=== PATIENT | male | born 1945 | race Caucasian/White ===

== ENCOUNTER 2018-05-13 14:28 | Outpatient (CLI) | payer MEDICARE, SELFPAY ==
[2018-05-13 14:53] LABS: Hemoglobin A1C 8.4 % (4.5-6.2)
[2018-05-13 15:39] LABS: Potassium 3.5 mmol/L (3.5-5.1)
== END 2018-05-13 14:29 ==
PROVIDERS: PCP Family Medicine; Visit Provider Family Medicine
DX: E87.6 Hypokalemia (principal); E11.9 Type 2 diabetes mellitus without complications
CPT/HCPCS: 36415; 83036; 84132

== ENCOUNTER 2018-07-11 01:28 | Outpatient (RCR) | payer MEDICARE, SELFPAY ==
[2018-07-11] MEDS: diphenhydrAMINE 50 MG/ML VIAL IVP (08:18)
[2018-07-11] MEDS: methylPREDNISolone SUCC 125 MG VIAL 100 MG IVP (08:18)
[2018-07-11] MEDS: Normal Saline Flush 10 ML SYR IVP (08:18)
[2018-07-11 08:23] VITALS: BP 152/94; PULSE 49; RESP 18; TEMP 36.7; O2SAT 93
[2018-07-11 09:00] VITALS: BP 182/86; PULSE 50; RESP 18; TEMP 36.5; O2SAT 95
[2018-07-11 09:30] VITALS: BP 178/96; PULSE 58; RESP 18; TEMP 36.7; O2SAT 92
[2018-07-11 10:04] VITALS: BP 169/89; PULSE 65; RESP 18; TEMP 36.7; O2SAT 91
[2018-07-11 11:33] VITALS: BP 138/76; PULSE 61; RESP 18; TEMP 36.5; O2SAT 91
[2018-07-11 13:04] VITALS: BP 147/84; PULSE 63; RESP 18; TEMP 36.5; O2SAT 91
== END 2018-07-13 23:59 | disposition home or self-care (01) ==
LOC: INF 01:28
PROVIDERS: PCP Family Medicine; Visit Provider Family Medicine
DX: M06.9 Rheumatoid arthritis, unspecified (principal)
CPT/HCPCS: 96365; 96366; J1200; J2930; J9310

== ENCOUNTER 2018-08-12 11:39 | Outpatient (CLI) | payer MEDICARE, SELFPAY ==
[2018-08-12 14:10] LABS: Hemoglobin A1C 8.2 % (4.5-6.2)
== END 2018-08-12 11:59 ==
PROVIDERS: PCP Family Medicine; Visit Provider Family Medicine
DX: E11.9 Type 2 diabetes mellitus without complications (principal)
CPT/HCPCS: 36415; 83036

== ENCOUNTER 2018-11-08 00:58 | Outpatient (RCR) | payer MEDICARE, SELFPAY | END 2018-11-10 23:59 | disposition home or self-care (01) | LOC: INF 00:58 | PROVIDERS: PCP Family Medicine; Visit Provider Family Medicine | DX: R69 Illness, unspecified (principal) ==

== ENCOUNTER 2018-11-14 06:50 | Outpatient (RCR) | payer MEDICARE, SELFPAY ==
[2018-11-14] VITALS (7 sets, daily range): BP systolic 139–172; BP diastolic 71–84; PULSE 50–55; RESP 18; TEMP 36–36.2; O2SAT 91–93
[2018-11-14] MEDS: diphenhydrAMINE 50 MG/ML VIAL IVP (07:48)
[2018-11-14] MEDS: Normal Saline Flush 10 ML SYR IVP (07:49)
[2018-11-14] MEDS: methylPREDNISolone SUCC 125 MG VIAL 100 MG IVP (07:49)
== END 2018-12-11 23:59 | disposition home or self-care (01) ==
LOC: INF 06:50
PROVIDERS: PCP Family Medicine; Visit Provider Family Medicine
DX: M06.9 Rheumatoid arthritis, unspecified (principal)
CPT/HCPCS: 96365; 96366; J1200; J2930; J9312

== ENCOUNTER 2018-11-16 02:44 | Outpatient (CLI) | payer MEDICARE, SELFPAY | END 2018-11-16 03:04 | PROVIDERS: PCP Family Medicine; Visit Provider Family Medicine | DX: E11.9 Type 2 diabetes mellitus without complications (principal) | CPT/HCPCS: 36415; 83036 ==

== ENCOUNTER 2019-02-22 12:28 | Outpatient (CLI) | payer MEDICARE, SELFPAY ==
[2019-02-22 13:40] LABS: Abs Immature Grans 0.02 k/cumm (0.0-0.09); Absolute Basophil Count 0.05 k/cumm (0.0-0.2); Absolute Eosinophil Count 0.28 k/cumm (0.0-0.7); Absolute Lymphocyte Count 1.81 k/cumm (1.2-3.4); Absolute Monocyte Count 0.76 k/cumm (0.11-0.7); Absolute Neutrophil Count 3.94 k/cumm (1.2-6.7); Basophils % 0.7; Eosinophils % 4.1; HCT 43.5 % (40.0-50.0); HGB 14.9 g/dL (13.5-17.5); Immature Grans % 0.3; Lymphocytes % 26.4; Mean Corp. HGB Concentration 34.3 g/dL (32.0-36.0); Mean Corpuscular Volume 90.4 fL (80-95); Mean Platelet Volume 12.1 fL (8.0-11.0); Monocytes % 11.1; Neutrophils % 57.4; Platelet Count 206 x1000/uL (130-400); RBC 4.81 m/cumm (4.50-6.00); RBC Distribution Width 14.2 % (11.8-14.1); White Blood Cell Count 6.86 k/cumm (4.4-10.8)
[2019-02-22 14:42] LABS: Hemoglobin A1C 8.4 % (4.5-6.2)
[2019-02-22 14:53] LABS: ALT 29 U/L (12-78); AST 15 U/L (15-37); Albumin 3.4 g/dL (3.4-5.0); Alkaline Phosphatase 69 U/L (46-116); Anion Gap 11.6 mmol/L (3-11); BUN 18 mg/dL (7-18); Bilirubin, Total 0.3 mg/dL (0.2-1.0); C-Reactive Protein 0.82 mg/dL (0.0-0.3); CO2 27.4 mmol/L (21.0-32.0); CREATININE 0.98 mg/dL (0.70-1.30); Calcium 9.4 mg/dL (8.5-10.1); Chloride 104 mmol/L (98-107); Glucose 148 mg/dL (70-100); Potassium 3.7 mmol/L (3.5-5.1); Sodium 143 mmol/L (136-145); Total Protein 6.5 g/dL (6.4-8.2)
[2019-02-23 11:25] LABS: IgG 929 mg/dL (610-1616)
== END 2019-02-22 12:48 ==
PROVIDERS: PCP Family Medicine; Referring Provider Internal Medicine Rheumatology; Visit Provider Family Medicine
DX: E11.9 Type 2 diabetes mellitus without complications (principal); M05.79 Rheumatoid arthritis with rheumatoid factor of multiple sites without organ or systems involvement; D89.9 Disorder involving the immune mechanism, unspecified; Z79.899 Other long term (current) drug therapy
CPT/HCPCS: 36415; 80053; 82784; 82565; 83036; 85025; 86140

== ENCOUNTER 2019-03-13 01:19 | Outpatient (RCR) | payer MEDICARE, SELFPAY ==
[2019-03-13] VITALS (7 sets, daily range): BP systolic 146–181; BP diastolic 71–95; PULSE 52–64; RESP 18; TEMP 36.3–36.7; O2SAT 98–99
[2019-03-13] MEDS: methylPREDNISolone SUCC 125 MG VIAL 100 MG IV (07:40)
[2019-03-13] MEDS: Normal Saline Flush 10 ML SYR IVP (07:41)
[2019-03-13] MEDS: diphenhydrAMINE 50 MG/ML VIAL IVP (07:41)
== END 2019-04-12 23:59 | disposition home or self-care (01) ==
LOC: INF 01:19
PROVIDERS: PCP Family Medicine; Visit Provider Family Medicine
DX: M06.9 Rheumatoid arthritis, unspecified (principal)
CPT/HCPCS: 96365; 96366; J1200; J2930; J9310

== ENCOUNTER 2019-05-22 00:31 | Outpatient (CLI) | payer MEDICARE, SELFPAY ==
--- NOTE | 2019-05-22 13:21 | DI.CTLCSR_ITS ---
SYMPTOMS/DIAGNOSIS: SCREENING FOR LUNG CA, Z12.2, F17.210 LOW DOSE LUNG CANCER SCREENING: CT examination of the chest was performed utilizing low dose lung cancer screening protocol. There are severe pulmonary emphysematous changes, central lobular and subpleural. There are peripheral and basilar predominant reticular radiodensities with some honeycombing in the lung bases consistent with pulmonary fibrosis. No focal consolidation seen. A 7 x 4 mm in diameter well- circumscribed noncalcified pulmonary nodule is noted in the right upper lobe anteriorly, which was not present on previous examination of April 2009. No additional new pulmonary nodules seen. Note is made of coronary artery calcification. Images obtained through the upper abdomen show grossly unremarkable appearance of visualized portions of the liver and spleen. CONCLUSION: Probably benign findings, six-month follow-up LDCT recommended. Lung-RAD Category: 3- Probably Benign Lung- RAD Management of Findings: 6 month LDCT follow-up
== END 2019-05-22 00:51 ==
PROVIDERS: PCP Family Medicine; Visit Provider Family Medicine
DX: Z12.2 Encounter for screening for malignant neoplasm of respiratory organs (principal); F17.210 Nicotine dependence, cigarettes, uncomplicated; J43.9 Emphysema, unspecified; J84.10 Pulmonary fibrosis, unspecified; R91.1 Solitary pulmonary nodule
CPT/HCPCS: G0297

== ENCOUNTER 2019-05-24 23:33 | Inpatient (IN) | payer MEDICARE, SELFPAY ==
[2019-05-24] VITALS (10 sets, daily range): BP systolic 147–201; BP diastolic 83–97; PULSE 69–91; RESP 4–32; TEMP 36.8; O2SAT 90–99
--- NOTE | 2019-05-24 00:55 | DI.CT_ITS ---
SYMPTOM/DIAGNOSIS: CHEST PAIN CT ANGIOGRAPHY CHEST: 05/24 CT angiography was performed with multi slice acquisition and multi planar and 3D reconstruction. CT angiography of the chest was performed with a bolus infusion of 100 cc Omnipaque 350. There are severe changes of COPD with honeycombing in the lung bases bilaterally. No focal consolidation. 7 x 4 mm right upper lobe intrapulmonary nodule again noted as seen on CT of 05/22/19. There is no evidence of pulmonary embolic disease. Thoracic aorta appears intact as visualized although not optimally opacified. No pleural effusion. No mediastinal or hilar adenopathy. Images obtained through the upper abdomen show unremarkable appearance of visualized portions of liver, spleen, pancreas, adrenals and kidneys. CONCLUSION: No evidence of pulmonary embolic disease.
--- NOTE | 2019-05-24 23:51 | W.ED.GENAD ---
Discharge Plan Disposition Patient Disposition: [facility] INPATIENT Condition: Fair Discharge Details Chief Complaint: Chest Pain Clinical Impression: COPD exacerbation, Chest pain Primary Care Provider: Mike Burns ED Provider: Anton Rogers Home Meds and New Rx's Prescriptions: No Action nicotine (polacrilex) [Nicorette] 4 mg lozenge 4 mg MM Q4H PRN (Reason: nicotine cravings) Qty: 72 RF: 2 amlodipine 5 mg tablet 5 mg PO BID Qty: 180 RF: 4 atorvastatin 40 mg tablet 40 mg PO DAILY Qty: 90 RF: 4 (DME) FreeStyle Test strip 1 strip Miscellaneous DAILY Qty: 100 RF: 4 clopidogrel [Plavix] 75 mg tablet 75 mg PO DAILY Qty: 90 RF: 4 losartan 100 mg tablet 100 mg PO DAILY Qty: 90 RF: 3 metformin 500 mg tablet,ER luis m.retention 24 hr 500 mg PO .qod RF: 0 albuterol sulfate [Proventil HFA] 90 mcg/actuation HFA aerosol inhaler 2 puff IH Q6H PRN (Reason: shortness of breath or wheezing) Qty: 6.7 RF: 5 budesonide 0.5 mg/2 mL suspension for nebulization 0.5 mg Inhalation BID Qty: 60 RF: 11 fluticasone propionate 50 mcg/actuation spray,suspension 2 spray NS DAILY Qty: 1 RF: 5 (DME) Space Chamber Plus 1 EACH spacer 1 ea Miscellaneous PRN Qty: 1 RF: 0 Remicade 100 MG recon soln 1,000 mg IV .[id number] RF: 0 albuterol sulfate [ProAir HFA] 8.5 GM HFA aerosol inhaler 2 puff Inhalation QID PRN Qty: 1 RF: 11 nitroglycerin [Nitrostat] 0.4 MG tablet, sublingual 0.4 mg Sublingual PRN Qty: 25 RF: 11 aspirin 81 MG tablet,chewable 81 mg PO DAILY RF: 0 (DME) lancets [FreeStyle Lancets] 1 EACH misc 1 ea Intradermal DAILY Qty: 100 RF: 4 omeprazole 40 mg capsule,delayed release(DR/EC) 40 mg PO DAILY PRN (Reason: gerd) Qty: 90 RF: 3 Chantix Continuing Month Box 1 mg tablet 1 mg PO BID Qty: 60 RF: 2 acetaminophen 650 MG tablet extended release 650 mg PO Q8H PRN (Reason: Pain) Qty: 20 RF: 0 tamsulosin 0.4 mg Capsule 0.4 mg PO DAILY RF: 0 acebutolol 200 mg Capsule 200 mg PO DIRECTED RF: 0 Medical Decision Making Patient presenting with cough, wheezing, chest pain. He does have known coronary disease but also has COPD. His chest pain is reproducible. His EKG shows no ischemia. IV established laboratory studies obtained including troponin. DuoNeb treatment given. Aspirin and nitroglycerin given. CT of the chest ordered due to pleuritic nature of the chest pain. Nitroglycerin did not help the pain at all. Little bit of morphine was given. Laboratory studies show a normal troponin. White count and hemoglobin normal. Electrolytes normal. Sugar a little high. CTA of the chest negative for PE, infiltrates. He does have a nodule right upper lobe which was identified on a lung screening exam 3 days ago. On return to ED patient is given an albuterol treatment. He is given Solu-Medrol. Suspect COPD exacerbation with chest wall pain related to coughing. Case discussed with hospitalist. Because of his cardiac history he will go to telemetry and have serial troponins. We will treat his COPD exacerbation. Is stable for admission. Medical Records Medical records reviewed: Yes I reviewed the patient's medical records. Lab Data Lab results reviewed: Yes I reviewed the patient's lab results. ECG Data Attestation: I personally reviewed and interpreted this ECG (s) as follows: Prior ECG tracings: available for review Interpretation: Sinus rhythm at 80 with PVCs. Normal intervals. Left axis. No acute ST changes. HPI General Mode of arrival: wheelchair. Date/Time Provider Initiated Documentation: 05/24/19 23:34. Limitations to Documentation: no limitations. Information obtained by: patient, RN notes reviewed and old records reviewed. HPI Narrative: Patient presents to ED with complaint of left-sided chest pain. He reports developing a cough this afternoon. He developed chest pain this evening. Called his daughter who found him lying on the floor writhing in pain holding his chest. He denies syncope. He denies fever that he is aware of though he complains of being diaphoretic. He has no abdominal pain, nausea, vomiting. Chest pain does not radiate anywhere. He does not feel more short of breath than usual but the cough is new. He has no leg pain or leg swelling. He does have known coronary disease with previous stenting. He also has history of COPD. Related Data Home Medications Medication Instructions Recorded Confirmed Space Chamber Plus #1 05/27/15 05/25/19 Remicade 1,000 mg IV .[id number] vial 05/31/15 05/25/19 acetaminophen 650 mg PO Q8H PRN #20 tablet.er 04/30/17 05/25/19 albuterol sulfate [ProAir HFA] 2 puff INHALATION QID PRN #1 06/04/17 05/25/19 inhaler nitroglycerin [Nitrostat] 0.4 mg SUBLINGUAL PRN #25 tab-cap 09/03/17 05/25/19 aspirin 81 mg PO DAILY tab-cap 05/13/18 05/25/19 lancets [Freestyle Lancets] #100 ea 05/13/18 05/25/19 omeprazole 40 mg capsule,delayed 40 mg PO DAILY PRN #90 tab-cap 08/08/18 05/25/19 release budesonide 0.5 mg/2 mL suspension 0.5 mg INHALATION BID #60 amp 08/12/18 05/25/19 for nebulization fluticasone propionate 50 2 spray NS DAILY #1 gm 11/15/18 05/25/19 mcg/actuation nasal spray,suspension albuterol sulfate 90 mcg/actuation 2 puff IH Q6H PRN #6.7 gm 02/21/19 05/25/19 aerosol inhaler amlodipine 5 mg tablet 5 mg PO BID #180 tab-cap 02/21/19 05/25/19 atorvastatin 40 mg tablet 40 mg PO DAILY #90 tab-cap 02/21/19 05/25/19 blood sugar diagnostic #100 strip 02/21/19 05/25/19 clopidogrel 75 mg tablet 75 mg PO DAILY #90 tab 02/21/19 05/25/19 losartan 100 mg tablet 100 mg PO DAILY #90 tab-cap 02/21/19 05/25/19 metformin 500 mg 24 hr 500 mg PO .qod tab-cap 02/21/19 05/25/19 tablet,extended release nicotine (polacrilex) 4 mg buccal 4 mg MM Q4H PRN #72 each 02/21/19 05/25/19 lozenge varenicline 1 mg tablet 1 mg PO BID #60 tab 05/11/19 05/25/19 acebutolol 200 mg PO DIRECTED 05/25/19 05/25/19 tamsulosin 0.4 mg PO DAILY 05/25/19 05/25/19 Previous Rx's Medication Instructions Recorded acetaminophen 650 mg PO Q8H PRN #20 tablet.er 04/30/17 albuterol sulfate [ProAir HFA] 2 puff INHALATION QID PRN #1 06/04/17 inhaler nitroglycerin [Nitrostat] 0.4 mg SUBLINGUAL PRN #25 tab-cap 09/03/17 lancets [Freestyle Lancets] #100 ea 05/13/18 omeprazole 40 mg capsule,delayed 40 mg PO DAILY PRN #90 tab-cap 08/08/18 release budesonide 0.5 mg/2 mL suspension 0.5 mg INHALATION BID #60 amp 08/12/18 for nebulization fluticasone propionate 50 2 spray NS DAILY #1 gm 11/15/18 mcg/actuation nasal spray,suspension albuterol sulfate 90 mcg/actuation 2 puff IH Q6H PRN #6.7 gm 02/21/19 aerosol inhaler amlodipine 5 mg tablet 5 mg PO BID #180 tab-cap 02/21/19 atorvastatin 40 mg tablet 40 mg PO DAILY #90 tab-cap 02/21/19 blood sugar diagnostic #100 strip 02/21/19 clopidogrel 75 mg tablet 75 mg PO DAILY #90 tab 02/21/19 losartan 100 mg tablet 100 mg PO DAILY #90 tab-cap 02/21/19 nicotine (polacrilex) 4 mg buccal 4 mg MM Q4H PRN #72 each 02/21/19 lozenge varenicline 1 mg tablet 1 mg PO BID #60 tab 05/11/19 Allergies Allergy/AdvReac Type Severity Reaction Status Date / Time venom-honey bee Allergy Severe ANAPHYLAXSI Unverified 05/24/19 23:41 [bee venom (honey bee)] S Sulfa (Sulfonamide Allergy Unknown unknown Unverified 05/24/19 23:41 Antibiotics) leflunomide [From Arava] AdvReac Intermediate DIARRHEA Unverified 05/24/19 23:41 metformin AdvReac Intermediate diarrhea Unverified 05/24/19 23:41 General Stated Complaint: Chest Pain STAR: 2 Review of Systems Review of Systems 06/26 Review of Systems completed and is negative except as stated above in HPI (Systems reviewed: Const, Eyes, ENT, Resp, CV, GI, , MSK, Skin, Neuro) [facility] Medical History ASCVD (arteriosclerotic cardiovascular disease) (Chronic 05/05/13) 2 NEW STENTS 04/22 H/O IMI; angioplasty and stent; [place] , 02/11; CVA/TIA Chronic obstructive lung disease (Chronic) pulmonary fibrosis on chest xray ongoing tobacco use add back budesonide nebs to see if we can improve cough CVA (cerebral vascular accident) (Resolved 11/21/17) Depressive disorder (Chronic) Diabetes mellitus (Chronic 05/05/13) check A1c and creat Gastroesophageal reflux disease (Chronic) Hyperlipidemia (Chronic 05/05/13) Hypertension (Chronic) same meds, good BP here today Rheumatoid arthritis (Chronic 05/05/13) [facility] [place], [place], Dr Leon Surgical History Colonoscopy - MAC (05/16/13) Colonoscopy - MAC (11/13/16) Colostomy (~2006) TEMP W/ REVISION Excision, Lipoma (05/19/16) posterior neck Hernia Repair, Incisional KNEE REPAIR RIGHT RESECTION ANGIOFIBROMA;RIGHT FOOT 02/04/18 Social History Smoking/Tobacco Use Status: Current every day Tobacco Type: cigarettes Tobacco: How many years used: 60 Quit status: has quit before Second Hand Exposure: Yes Alcohol Intake: former Drug use: Never Substance use type: does not use Caregiver/Support person: No Household members: none Housing: house Communication Needs: Hard of Hearing Do you need help understanding health information?: Rarely Pets and animals: No Sexually active: No Current gender identity: male What is your relationship status?: How often do you talk on the phone with friends or family?: decline to answer How often do you get together with friends or relatives?: decline to answer How often do you attend samaritan or anabaptism services?: decline to answer Do you belong to any clubs or organized social groups?: decline to answer Panel score (0-1 are the most socially isolated patients): 0 What type of physical activity do you participate in: decline to answer Duration: decline to answer Frequency: decline to answer Monika/Lutheran: None Special monika needs: No Seatbelt use: sometimes Helmet use: No 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 Low saturations despite oxygen. Const: WDWN elderly male in NAD. HEENT: NC/AT. Normal facial exam. Eyes: Normal conjunctiva and sclera. Neck: Supple. Trachea midline. Lungs: Normal respiratory effort. Lungs with diffuse wheezing throughout. Some rhonchi in the bases. Cor: RRR without murmur/gallop. Good radial pulses. Chest wall tender to palpation left side. GI: Soft. NT/ND. No guarding or rebound. Neuro: A+O x 3. CN grossly in tact. Good strength and no focal deficit. Ext: No C/C/E. No calf tenderness. Skin: Warm and dry here. No rash. Course Vital Signs Temperature 98.2 F 05/24/19 23:33 Pulse 77 05/24/19 23:33 Respiratory Rate 32 H 05/24/19 23:33 Blood Pressure 199/97 H 05/24/19 23:33 Pulse Oximetry 92 L 05/24/19 23:33 Temperature 98.2 F 05/24/19 23:33 Temperature Source Skin 05/24/19 23:33 Pulse 77 05/24/19 23:33 Respiratory Rate 32 H 05/24/19 23:33 Respiratory Effort Short of Breath 05/24/19 23:43 Blood Pressure 199/97 H 05/24/19 23:33 Pulse Oximetry 92 L 05/24/19 23:33 Oxygen Delivery Method Room Air 05/24/19 23:33 Oxygen Flow Rate 0 05/24/19 23:33 Pain Level 10 05/24/19 23:33
[2019-05-24] MEDS: Aspirin 81 MG CHEW 324 MG CH (23:55)
[2019-05-24] MEDS: Albuterol/Ipratropium 3 ML UPD VIAL UPD (23:55)
[2019-05-25] VITALS (30 sets, daily range): BP systolic 147–178; BP diastolic 74–85; PULSE 52–98; RESP 4–31; TEMP 35.7–36.9; O2SAT 87–100
[2019-05-25 00:02] LABS: Abs Immature Grans 0.03 k/cumm (0.0-0.09); Absolute Basophil Count 0.04 k/cumm (0.0-0.2); Absolute Eosinophil Count 0.39 k/cumm (0.0-0.7); Absolute Lymphocyte Count 2.67 k/cumm (1.2-3.4); Absolute Monocyte Count 1.13 k/cumm (0.11-0.7); Absolute Neutrophil Count 5.21 k/cumm (1.2-6.7); Basophils % 0.4; Eosinophils % 4.1; HCT 44.1 % (40.0-50.0); HGB 15.4 g/dL (13.5-17.5); Immature Grans % 0.3; Lymphocytes % 28.2; Mean Corp. HGB Concentration 34.9 g/dL (32.0-36.0); Mean Corpuscular Hemoglobin 31.9 pg (27.0-33.0); Mean Corpuscular Volume 91.3 fL (80-95); Mean Platelet Volume 12.3 fL (8.0-11.0); Monocytes % 11.9; Neutrophils % 55.1; Platelet Count 225 x1000/uL (130-400); RBC 4.83 m/cumm (4.50-6.00); White Blood Cell Count 9.47 k/cumm (4.4-10.8)
[2019-05-25 00:18] LABS: INR 0.9 (0.9-1.1); PTT Activated 22.4 sec (21.0-31.4); Prothrombin Time 9.3 sec (9.3-11.0)
[2019-05-25 00:22] LABS: ALT 39 U/L (16-63); AST 22 U/L (15-37); Albumin 3.7 g/dL (3.4-5.0); Alkaline Phosphatase 89 U/L (46-116); Anion Gap 15.1 mmol/L (3-11); BUN 18 mg/dL (7-18); Bilirubin, Total 0.5 mg/dL (0.2-1.0); CO2 22.9 mmol/L (21.0-32.0); CREATININE 1.28 mg/dL (0.70-1.30); Calcium 8.6 mg/dL (8.5-10.1); Chloride 103 mmol/L (98-107); Glucose 242 mg/dL (70-100); Magnesium 1.8 mg/dL (1.8-2.4); Potassium 3.6 mmol/L (3.5-5.1); Sodium 141 mmol/L (136-145); Total Protein 7.7 g/dL (6.4-8.2)
[2019-05-25 00:24] LABS: Troponin I < 0.05 ng/mL (0.00-0.06)
[2019-05-25] MEDS: Omnipaque 350 MG/ML 100 ML BTL IJ (00:54)
[2019-05-25] MEDS: Omnipaque 350 MG/ML 50 ML BTL IJ (00:55)
[2019-05-25] MEDS: MORPHine 10 MG/ML VIAL 2 MG IVP (01:05)
--- NOTE | 2019-05-25 01:09 | DI.VRAD_ITS ---
EXAM: CT Angiography Chest With Contrast EXAM DATE/TIME: 05/24/2019 11:51 PM CLINICAL HISTORY: 73 years old, male; Chest pain; Type not specified; Prior surgery; Surgery date: 6+ months; Surgery type: Heart stent placement TECHNIQUE: Imaging protocol: Computed tomographic angiography of the chest with intravenous contrast. 3D rendering: MIP reconstructed images were created and reviewed. Radiation optimization: All CT scans at this facility use at least one of these dose optimization techniques: automated exposure control; mA and/or kV adjustment per patient size (includes targeted exams where dose is matched to clinical indication); or iterative reconstruction. Contrast material: [id number]; Contrast volume: 110 ml; Contrast route: IV RAC 18G; COMPARISON: CT CHEST LUNG CANCER SCREEN 05/22/2019 1:37 PM FINDINGS: Pulmonary arteries: Unremarkable. No obvious pulmonary emboli. Aorta: Unremarkable. No aortic aneurysm. No aortic dissection. Lungs: Moderate emphysematous changes. Moderate pulmonary fibrotic change. 7 mm circumscribed right upper lobe pulmonary nodule discussed on long screening exam done 3 days ago. Pleural space: Unremarkable. No pneumothorax. No pleural effusion. Heart: Unremarkable. No pericardial effusion. No obvious heart strain. Lymph nodes: Unremarkable. No enlarged lymph nodes. Bones/joints: Unremarkable. No acute fracture. Soft tissues: Unremarkable. IMPRESSION: No evidence of pulmonary emboli. No short-term interval change. Dictated and Authenticated by: Dre Womack MD. Ordering:JUANA Walton MD
[2019-05-25] MEDS: Albuterol 2.5 MG/3 ML INH SOLN VIAL UPD (01:18)
[2019-05-25] MEDS: methylPREDNISolone SUCC 125 MG VIAL IVP (01:31)
--- NOTE | 2019-05-25 01:42 | NUR.NOTE ---
Report given to SILVINO Albrecht pt going to rm 214 Nursing Note:
[2019-05-25] MEDS: Normal Saline Flush 10 ML SYR IVP ×4 (03:27→08:55)
[2019-05-25 06:14] LABS: Troponin I 1.01 ng/mL (0.00-0.06)
--- NOTE | 2019-05-25 06:44 | HPE_ITS ---
Date of service: 05/25/19 Time of Service: 06:46 Assessment and Plan Assessment and plan (1) Non-ST elevated myocardial infarction: Status: Acute Assessment and plan: He is currently pain free and not dyspneic. He presented w/ severe hypertension and it may be that his troponin elevation and CP were related to uncontrolled HTN and he may have been having hypertensive urgency. I have started him on heparin drip; he is already on ASA and received 324 mg chewable in the ER and he is on plavix and a statin. I will change his Acebutolol to lopressor which can be more easily titrated, continue his am lodipine. I will check echocardiogram and put in for cardiology consult this a.m. If no cardiology is available today then the day hosptitalist will have to speak w/ [facility] [place] (2) Hypertension: Status: Chronic Assessment and plan: switch acebutolol to lopresor and titrate his dose, continue w/ norvasc and losartan; can use iv lopressor prn for severe HTN Qualifiers: Hypertension type: essential hypertension Qualified Code(s): I10 - Essential (primary) hypertension (3) ASCVD (arteriosclerotic cardiovascular disease): Status: Chronic Assessment and plan: as above. (4) COPD exacerbation: Status: Acute Assessment and plan: continue iv corticosteroids, nebulizers; he has no evidence for infection and therefore I have not started him on antibiotics. 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 This is been preceded by 3 to 4 days of nonproductive cough not associated with any fever chills or sputum production. His chest pain was left-sided underneath his left breast that was associated with acute dyspnea and diaphoresis. He also noticed that he had some aching in his gums. He did not tell the emergency room about his diaphoresis and aching in his gums and when he was evaluated in the emergency department he had reproducible chest wall pain. His initial ECG showed no acute ischemic ST or T wave changes. He was in sinus rhythm at a rate of 80 bpm with isolated PVCs. His first troponin was less than 0.05. His chest pain did not improve with sublingual nitroglycerin but got better after he was given some morphine. He was noted to be wheezing as well as coughing. Because there was some pleuritic nature to his chest pain a CT scan of his chest was ordered which showed no evidence of pulmonary emboli. Lungs showed moderate emphysematous changes with moderate pulmonary fibrotic changes. He also has a well- circumscribed 7 mm right upper lobe nodule that had previously was documented on a screening exam 3 days prior. He had no pericardial effusion and no cardiomegaly on his CT scan. Patient was given a dose of IV Solu-Medrol as well as DuoNeb aerosol treatments in the emergency department and was admitted as COPD exacerbation with atypical chest pain. Upon further questioning the patient he had felt fine yesterday morning and swept his trailer where he lives as well as the deck surrounding his trailer and had no exertional chest pain or pressure and no unusual dyspnea beyond his normal amount of dyspnea he gets with some mild to moderate exercise. Since his chest pain went on for a couple hours by time he was admitted to the hospital his chest pain had subsided. Repeat troponin was obtained at 3:58 AM and was found to be elevated at 1.01. Repeat ECG was obtained and his rhythm remains normal sinus rhythm at a rate of 73 bpm with isolated occasional PVCs. He has some nonspecific T wave abnormalities in the inferior leads III and aVF which were not noted on his prior ECG last night. He currently remains pain-free and not short of breath. He was given aspirin 324 mg chewable last night on admission and is already on aspirin and Plavix for his coronary stents. I will start him on a heparin drip. We will obtain further serial troponin levels and obtain an echocardiogram this morning and discuss his case with cardiology. It appears that this was not a straightforward COPD exacerbation and although he had reproducible chest wall pain it appears that he has had a non-ST elevation myocardial infarction. Review of Systems Constitutional Constitutional: Denies chills and Denies fever(s) Eyes Eyes: Reports system reviewed and no additional complaints, except as docu ENT Ears, Nose, Mouth, and Throat: Reports system reviewed and no additional complaints, except as docu Cardiovascular Cardiovascular: Reports as per HPI Respiratory Respiratory: Reports as per HPI Gastrointestinal Gastrointestinal: Reports system reviewed and no additional complaints, except as docu Genitourinary Genitourinary: Reports system reviewed and no additional complaints, except as docu Musculoskeletal Musculoskeletal: Reports system reviewed and no additional complaints, except as docu Integumentary/Breasts Skin/Breast: Reports system reviewed and no additional complaints, except as docu Neurologic Neurologic: Reports system reviewed and no additional complaints, except as docu Psychiatric Psychiatric: Reports system reviewed and no additional complaints, except as docu Endocrine Endocrine: Reports system reviewed and no additional complaints, except as docu Hematologic/Lymphatic Hematologic/Lymphatic: Reports system reviewed and no additional complaints, except as docu Allergic/Immunologic Allergic/Immunologic: Reports system reviewed and no additional complaints, except as docu PFS Medical History ASCVD (arteriosclerotic cardiovascular disease) (Chronic 05/05/13) 2 NEW STENTS 04/22 H/O IMI; angioplasty and stent; [place] , 02/11; CVA/TIA Chronic obstructive lung disease (Chronic) pulmonary fibrosis on chest xray ongoing tobacco use add back budesonide nebs to see if we can improve cough CVA (cerebral vascular accident) (Resolved 11/21/17) Depressive disorder (Chronic) Diabetes mellitus (Chronic 05/05/13) check A1c and creat Gastroesophageal reflux disease (Chronic) Hyperlipidemia (Chronic 05/05/13) Hypertension (Chronic) same meds, good BP here today Rheumatoid arthritis (Chronic 05/05/13) [facility] [place], Dr Leon Surgical History Colonoscopy - MAC (05/16/13) Colonoscopy - MAC (11/13/16) Colostomy (~2006) TEMP W/ REVISION Excision, Lipoma (05/19/16) posterior neck Hernia Repair, Incisional KNEE REPAIR RIGHT RESECTION ANGIOFIBROMA;RIGHT FOOT 02/04/18 Family History Mother Essential hypertension Heart disease Stroke Father Stroke Brother Heart disease Family History Diabetes Heart disease Cancer Brother No problems noted. Brother No problems noted. Sister No problems noted. Sister Alcohol abuse Social History (Updated 05/25/19 @ 07:07 by Teo Brewer) Smoking/Tobacco Use Status: Current every day Tobacco Type: cigarettes Smoking packs per day: 1 Smoking cigarettes per day: 20.0 Tobacco: How many years used: 60 Quit status: has quit before Second Hand Exposure: Yes Alcohol Intake: former Drug use: Never Substance use type: does not use Caregiver/Support person: No Household members: none Housing: house Communication Needs: Hard of Hearing Do you need help understanding health information?: Rarely Pets and animals: No Sexually active: No Current gender identity: male What is your relationship status?: How often do you talk on the phone with friends or family?: decline to answer How often do you get together with friends or relatives?: decline to answer How often do you attend mosque or mandaen services?: decline to answer Do you belong to any clubs or organized social groups?: decline to answer Panel score (0-1 are the most socially isolated patients): 0 What type of physical activity do you participate in: decline to answer Duration: decline to answer Frequency: decline to answer Monika/Lutheran: None Special monika needs: No Seatbelt use: sometimes Helmet use: No Drive intox or ride w/intox recycle driver: No Do you feel safe at home: Yes Do you feel safe in your relationship?: Yes Additional Social history: twice; lives alone in [facility]; has 4 grown children;3 daughters, 1 son Meds Home Medications and Allergies Home Medications Medication Instructions Recorded Confirmed Type Space Chamber Plus #1 05/27/15 05/25/19 History Remicade 1,000 mg IV .[id number] vial 05/31/15 05/25/19 History acetaminophen 650 mg PO Q8H PRN #20 tablet.er 04/30/17 05/25/19 Rx albuterol sulfate [ProAir HFA] 2 puff INHALATION QID PRN #1 06/04/17 05/25/19 Rx inhaler nitroglycerin [Nitrostat] 0.4 mg SUBLINGUAL PRN #25 tab-cap 09/03/17 05/25/19 Rx aspirin 81 mg PO DAILY tab-cap 05/13/18 05/25/19 History lancets [Freestyle Lancets] #100 ea 05/13/18 05/25/19 Rx omeprazole 40 mg capsule,delayed 40 mg PO DAILY PRN #90 tab-cap 08/08/18 05/25/19 Rx release budesonide 0.5 mg/2 mL suspension 0.5 mg INHALATION BID #60 amp 08/12/18 05/25/19 Rx for nebulization fluticasone propionate 50 2 spray NS DAILY #1 gm 11/15/18 05/25/19 Rx mcg/actuation nasal spray,suspension albuterol sulfate 90 mcg/actuation 2 puff IH Q6H PRN #6.7 gm 02/21/19 05/25/19 Rx aerosol inhaler amlodipine 5 mg tablet 5 mg PO BID #180 tab-cap 02/21/19 05/25/19 Rx atorvastatin 40 mg tablet 40 mg PO DAILY #90 tab-cap 02/21/19 05/25/19 Rx blood sugar diagnostic #100 strip 02/21/19 05/25/19 Rx clopidogrel 75 mg tablet 75 mg PO DAILY #90 tab 02/21/19 05/25/19 Rx losartan 100 mg tablet 100 mg PO DAILY #90 tab-cap 02/21/19 05/25/19 Rx metformin 500 mg 24 hr 500 mg PO .qod tab-cap 02/21/19 05/25/19 History tablet,extended release nicotine (polacrilex) 4 mg buccal 4 mg MM Q4H PRN #72 each 02/21/19 05/25/19 Rx lozenge varenicline 1 mg tablet 1 mg PO BID #60 tab 05/11/19 05/25/19 Rx acebutolol 200 mg PO DIRECTED 05/25/19 05/25/19 History tamsulosin 0.4 mg PO DAILY 05/25/19 05/25/19 History Allergies Allergy/AdvReac Type Severity Reaction Status Date / Time venom-honey bee Allergy Severe ANAPHYLAXSI Unverified 05/24/19 23:41 [bee venom (honey bee)] S Sulfa (Sulfonamide Allergy Unknown unknown Unverified 05/24/19 23:41 Antibiotics) leflunomide [From Arava] AdvReac Intermediate DIARRHEA Unverified 05/24/19 23:41 metformin AdvReac Intermediate diarrhea Unverified 05/24/19 23:41 Exam Const General: cooperative, comfortable, no acute distress and well developed Nutritional Appearance: overweight Orientation: alert, awake and oriented [facility]: normal to inspection, no palpable skull fracture, normocephalic and atraumatic Ears: external ears normal and TM's normal bilaterally General nose exam: external nose normal, nares normal and nasal mucous membranes and turbinates normal Face and sinus: normal facial exam Mouth: oral mucosae normal, lip normal, tongue normal, oropharynx normal and moist mucous membranes Teeth and gingiva: edentulous Throat: posterior oropharynx normal Eyes General: appearance normal, both eyes and all related structures Alignment and Position: alignment normal Periorbital: periorbital findings normal Eyelids: eyelids normal Conjunctivae: conjunctivae normal Sclera: sclerae normal Cornea: corneas normal Pupils: PERRL EOM: EOM intact bilaterally Neck Neck: normal visual inspection, full ROM, no lymphadenopathy, trachea midline, supple and no JVD Thyroid: thyroid normal Carotids: normal carotid upstroke Lymphatic: no lymphadenopathy noted Resp Effort & Inspection: normal respiratory effort and able to speak in complete sentences Auscultation: no rales, no rhonchi and wheezes scattered wheezes Percussion: percussion normal Cardio Jugular venous pressure: no JVD Palpation: normal PMI Rate: regular rate Rhythm: regular rhythm Heart Sounds: S1 normal, S2 normal, normal, physiologic split S2, no gallops, no murmurs and no rubs Bruits: no abdominal aortic bruits and no carotid bruits Pulses: normal peripheral pulses GI Inspection: normal to inspection and obesity Palpation: soft and no hepatosplenomegaly Percussion: normal to percussion Rectal Exam: deferred General: bladder normal to palpation and No CVA tenderness Back/Spine/Pelvis Back: no CVA tenderness Cervical Spine: normal cervical lordosis Thoracic/Lumbar Spine: thoracic and lumbar spine normal to inspection Skin General skin exam: no rashes or lesions noted, elasticity normal and turgor normal Lesions: no lesions Rashes: no rashes Trauma: no lacerations or abrasions Wounds: no wounds Extrem General: normal to inspection, full ROM, normal capillary refill, no joint enlargement, no clubbing, cyanosis or edema, no pedal edema, no calf tenderness and amputation noted Hand: left (left distal thumb) Psych Appearance: grossly normal Mental Status: mental status grossly normal Speech and Movement: speech and movement normal Mood: congruent mood Affect: normal affect Attitude: cooperative Thought Process: normal Thought Content: normal Insight: insight good Judgment: judgment good Results Imaging CT scan - chest: report reviewed EKG: image reviewed (first EKG on 05/24/2019 @ 23:37 demonstrates NSR rate 80 bpm w/ occasional PVC and old IWMI; repeat EKG shows subtle T wave changes inferiorly) Labs Result diagrams: 05/25/19 06:46 05/25/19 06:46 Labs: Laboratory Results - last 24 hr 05/24/19 05/24/19 05/24/19 23:40 23:40 23:40 WBC 9.47 RBC 4.83 Hgb 15.4 Hct 44.1 MCV 91.3 MCH 31.9 MCHC 34.9 RDW 14.0 Plt Count 225 MPV 12.3 H Immature Gran % 0.3 Neutrophils % 55.1 Lymphocytes % 28.2 Monocytes % 11.9 Eosinophils % 4.1 Basophils % 0.4 Absolute Neutrophils 5.21 Absolute Lymphocytes 2.67 Absolute Monocytes 1.13 H Absolute Eosinophils 0.39 Absolute Basophils 0.04 PT 9.3 INR 0.9 APTT 22.4 Sodium 141 Potassium 3.6 Chloride 103 Carbon Dioxide 22.9 Anion Gap 15.1 H BUN 18 Creatinine 1.28 Estimated GFR/1.73 m2 55.40 Glucose 242 H Calcium 8.6 Magnesium 1.8 Total Bilirubin 0.5 AST 22 ALT 39 Alkaline Phosphatase 89 Troponin I < 0.05 Total Protein 7.7 Albumin 3.7 05/25/19 03:58 WBC RBC Hgb Hct MCV MCH MCHC RDW Plt Count MPV Immature Gran % Neutrophils % Lymphocytes % Monocytes % Eosinophils % Basophils % Absolute Neutrophils Absolute Lymphocytes Absolute Monocytes Absolute Eosinophils Absolute Basophils PT INR APTT Sodium Potassium Chloride Carbon Dioxide Anion Gap BUN Creatinine Estimated GFR/1.73 m2 Glucose Calcium Magnesium Total Bilirubin AST ALT Alkaline Phosphatase Troponin I 1.01 H* Total Protein Albumin Last Vital Signs Temp 36.5 C 05/25/19 02:25 Pulse 69 05/25/19 02:25 Resp 20 05/25/19 02:25 BP 178/76 H 05/25/19 02:25 Pulse Ox 95 05/25/19 02:25
[2019-05-25] MEDS: Metoprolol 12.5 MG TAB PO (06:56)
[2019-05-25 07:13] LABS: Abs Immature Grans 0.02 k/cumm (0.0-0.09); Absolute Basophil Count 0.01 k/cumm (0.0-0.2); Absolute Eosinophil Count 0.01 k/cumm (0.0-0.7); Absolute Lymphocyte Count 0.63 k/cumm (1.2-3.4); Absolute Monocyte Count 0.05 k/cumm (0.11-0.7); Basophils % 0.1; Eosinophils % 0.1; HCT 42.2 % (40.0-50.0); HGB 14.4 g/dL (13.5-17.5); Immature Grans % 0.3; Lymphocytes % 8.8; Mean Corp. HGB Concentration 34.1 g/dL (32.0-36.0); Mean Corpuscular Volume 90.8 fL (80-95); Monocytes % 0.7; Platelet Count 199 x1000/uL (130-400); RBC 4.65 m/cumm (4.50-6.00); RBC Distribution Width 13.9 % (11.8-14.1); White Blood Cell Count 7.12 k/cumm (4.4-10.8)
[2019-05-25 07:18] LABS: Anion Gap 11.1 mmol/L (3-11); BUN 18 mg/dL (7-18); CO2 25.9 mmol/L (21.0-32.0); CREATININE 1.25 mg/dL (0.70-1.30); Calcium 9.1 mg/dL (8.5-10.1); Chloride 103 mmol/L (98-107); Estimated GFR 56.94 (mL/min/1.73m2); Glucose 273 mg/dL (70-100); Potassium 3.6 mmol/L (3.5-5.1); Sodium 140 mmol/L (136-145)
[2019-05-25 07:25] LABS: Calculated LDL 115 mg/dL; Cholesterol 166 mg/dL (50-200); HDL Cholesterol 38 mg/dL (40-60); Triglyceride 65 mg/dL (30-150)
[2019-05-25 07:43] LABS: Hemoglobin A1C 8.6 % (4.5-6.2)
[2019-05-25] MEDS: Albuterol/Ipratropium 3 ML UPD VIAL UPD (08:00)
[2019-05-25 08:28] LABS: Troponin I 2.42 ng/mL (0.00-0.06)
[2019-05-25 08:29] LABS: NT-proBNP 264 pg/mL
[2019-05-25] MEDS: Insulin Aspart 300 UNITS/3 ML PEN SC ×2 (08:31→08:32)
[2019-05-25] MEDS: Tamsulosin 0.4 MG CAPCR PO (08:34)
[2019-05-25] MEDS: amLODIPine 5 MG TAB PO (08:34)
[2019-05-25] MEDS: Varenicline 1 MG TAB PO (08:34)
[2019-05-25] MEDS: Losartan 50 MG TAB 100 MG PO (08:34)
[2019-05-25] MEDS: Aspirin 81 MG CHEW PO (08:35)
[2019-05-25] MEDS: Atorvastatin 40 MG TAB PO (08:35)
[2019-05-25] MEDS: guaiFENesin 600 MG TABCR 1200 MG PO (08:35)
[2019-05-25] MEDS: Benzonatate 200 MG CAP PO (08:35)
[2019-05-25] MEDS: Clopidogrel 75 MG TAB PO (08:35)
[2019-05-25] MEDS: methylPREDNISolone SUCC 125 MG VIAL 60 MG IVP (08:56)
--- NOTE | 2019-05-25 09:00 | MERGE_ITS ---
*[facility]* *[facility]* [address] [place] [address] Date of study: 05/25/2019 Transthoracic Echocardiography M-mode, complete 2D, complete spectral Doppler, and color Doppler *STUDY CONCLUSIONS* Summary: 1. Left ventricle: The cavity size was normal. Wall thickness was increased in a pattern of mild LVH. Systolic function was normal. The estimated ejection fraction was 60-65%. Wall motion was normal; there were no regional wall motion abnormalities. Findings consistent with diastolic dysfunction. 2. Right ventricle: The cavity size was normal. Wall thickness was normal. Systolic function was normal. *PATIENT PRESENTATION* Height: 175.3cm (69in ) S/D Pressure: 155 / 75 Weight: 93.9kg (206.6lb ) BSA: 2.16m^2 Test start time: 09:00 AM. Test stop time: 10:00 AM. PERFORMING Unknown PERFORMING Nv CONSULTING Leo Brewer ORDERING Leo Brewer REFERRING Leo Brewer ATLASSIAN ADMINISTRATOR Kate Rosenberg RT (R)(CT), JAIMIE *PROCEDURE DATA* Procedure information: The patient was identified by two identifiers. This study was interpreted by [facility]. Pertinent images and digital data are archived for permanent storage and are available for subsequent review. Comparison was made to the study of 05/25/2007. Study status: Routine. Transthoracic echocardiography. M-mode, complete 2D, complete spectral Doppler, and color Doppler. A Transthoracic Echocardiogram was performed. Scanning was performed from the parasternal, apical, subcostal, and suprasternal notch acoustic windows. Images were obtained using an [id number] cardiac ultrasound machine. Image quality was adequate. Study completion: The patient tolerated the procedure well. There were no complications. History: PMH: Chest pain. *CARDIAC ANATOMY* Left ventricle: The cavity size was normal. Wall thickness was increased in a pattern of mild LVH. Systolic function was normal. The estimated ejection fraction was 60-65%. Wall motion was normal; there were no regional wall motion abnormalities. Findings consistent with diastolic dysfunction. Aortic valve: Trileaflet; normal thickness leaflets. Mobility was not restricted. Doppler: Transvalvular velocity was within the normal range. There was no stenosis. There was no significant regurgitation. VTI ratio of LVOT to aortic valve: 0.76. Valve area (VTI): 2.4cm^2. Indexed valve area (VTI): 1.1cm^2/m^2. Peak velocity ratio of LVOT to aortic valve: 0.75. Valve area (Vmax): 2.4cm^2. Indexed valve area (Vmax): 1.1cm^2/m^2. Mean velocity ratio of LVOT to aortic valve: 0.75. Valve area (Vmean): 2.4cm^2. Indexed valve area (Vmean): 1.1cm^2/m^2. Mean gradient (S): 4.5mm Hg. Peak gradient (S): 8.6mm Hg. Aorta: Aortic root: The aortic root was normal in size. Ascending aorta: The ascending aorta was normal in size. Mitral valve: Mildly thickened leaflets. Mobility was not restricted. Doppler: Transvalvular velocity was within the normal range. There was no evidence for stenosis. There was trivial regurgitation. Valve area by pressure half-time: 3.2cm^2. Indexed valve area by pressure half-time: 1.5cm^2/m^2. Left atrium: The atrium was normal in size. Right ventricle: The cavity size was normal. Wall thickness was normal. Systolic function was normal. Pulmonic valve: Structurally normal valve. Doppler: Transvalvular velocity was within the normal range. There was no evidence for stenosis. There was trivial regurgitation. Peak gradient (S): 5.3mm Hg. Tricuspid valve: Structurally normal valve. Doppler: Transvalvular velocity was within the normal range. There was no evidence for stenosis. There was trivial regurgitation. Pulmonary artery: Systolic pressure could not be accurately estimated. Right atrium: The atrium was normal in size. Pericardium: There was no pericardial effusion. Systemic veins: Inferior vena cava: Well visualized. The vessel was patent and normal in size. The respirophasic diameter changes were in the normal range (greater than or equal to 50%). Measurements Left ventricle Value Reference LV ID, ED, PLAX 5.6 cm 3.5 - 6.0 LV ID, ES, PLAX 3.8 cm 2.1 - 4.0 LV PW thickness, ED, PLAX 1.4 cm LV end-diastolic volume, 1-p A2C 126 ml LV ejection fraction, 1-p A2C 56 % LV end-diastolic volume, 1-p A4C 107 ml LV ejection fraction, 1-p A4C 51 % LV e', lateral 0.052 m/sec LV E/e', lateral 14 LV e', medial 0.044 m/sec LV E/e', medial 16 LV e', average 0.048 m/sec LV E/e', average 15 Ventricular septum Value Reference IVS thickness, ED, PLAX 1.3 cm LVOT Value Reference LVOT ID, A-P 2.0 cm LVOT area 3.2 cm^2 LVOT peak velocity, S 1.1 m/sec LVOT mean velocity, S 0.75 m/sec LVOT VTI, S 22.7 cm LVOT peak gradient, S 4.8 mm Hg LVOT mean gradient, S 2.5 mm Hg Stroke volume (SV), LVOT DP 73 ml Stroke index (SV/bsa), LVOT DP 34 ml/m^2 Aortic valve Value Reference Aortic valve peak velocity, S 1.5 m/sec Aortic valve mean velocity, S 1 m/sec Aortic valve VTI, S 30.0 cm Aortic mean gradient, S 4.5 mm Hg Aortic peak gradient, S 8.6 mm Hg VTI ratio, LVOT/AV 0.76 Aortic valve area, VTI 2.4 cm^2 Velocity ratio, peak, LVOT/AV 0.75 Aortic valve area, peak velocity 2.4 cm^2 Velocity ratio, mean, LVOT/AV 0.75 Aortic valve area, mean velocity 2.4 cm^2 Aortic valve area/bsa, mean velocity 1.1 cm^2/m^2 Aorta Value Reference Aortic root ID, ED 3.5 cm Left atrium Value Reference LA ID, A-P, ES 4.0 cm LA ID/bsa, A-P 1.8 cm/m^2 <=2.2 LA volume/bsa, ES, 1-p A4C 35 ml/m^2 LA volume, ES, 2-p 59 ml LA volume/bsa, ES, 2-p 27 ml/m^2 LA/aortic root ratio 1.12 Mitral valve Value Reference Mitral E-wave peak velocity 0.7 m/sec Mitral A-wave peak velocity 1.13 m/sec Mitral deceleration time (H) 236 ms 150 - 230 Mitral pressure half-time 68 ms Mitral E/A ratio, peak 0.62 Mitral valve area, PHT, DP 3.2 cm^2 Pulmonary veins Value Reference Pulmonary vein peak velocity, S 0.81 m/sec Pulmonary vein peak velocity, D 0.52 m/sec Pulmonary vein velocity ratio, peak, 1.55 S/D Pulmonary vein A-wave reversal peak 0.34 m/sec velocity Tricuspid valve Value Reference Tricuspid regurg peak velocity 2.5 m/sec Tricuspid peak RV-RA gradient 24.2 mm Hg Right atrium Value Reference RA area, ES, A4C (H) 22.5 cm^2 8.3 - 19.5 Pulmonic valve Value Reference Pulmonic peak gradient, S 5.3 mm Hg Legend: (L) and (H) marilin values outside specified reference range. I have personally reviewed the images and have reviewed and edited the reported findings. Electronically signed by Augie Srivastava 05/25/2019 16:31
[2019-05-25] MEDS: Budesonide 0.5 MG/2 ML UPD VIAL IH (09:59)
--- NOTE | 2019-05-25 11:06 | DSE_ITS ---
DS: Diagnosis Discharge Diagnosis (1) Non-ST elevated myocardial infarction: Status: Acute (2) Hypertension: Status: Chronic (3) ASCVD (arteriosclerotic cardiovascular disease): Status: Chronic (4) COPD exacerbation: Status: Acute (5) Diabetes mellitus: Status: Chronic Discharge Plan Disposition Condition: Fair Discharge Details Chief Complaint: Chest Pain Clinical Impression: COPD exacerbation, Chest pain Reason For Visit: CHEST PAIN, COPD EXACERBATION Admit Date/Time: 05/25/19 07:24 Admit Provider: Teo Brewer Attending Provider: Teo Brewer Primary Care Provider: Mike Burns ED Provider: [facility] Hospital Course: 73-year-old male with past medical history of coronary artery disease, myocardial infarction, coronary stents, COPD, hypertension, aortic stenosis, type 2 diabetes mellitus, GERD who presented to the emergency department with acute onset of chest pain. His initial ECG showed no acute ischemic ST or T wave changes. He was in sinus rhythm at a rate of 80 bpm with isolated PVCs. His first troponin was less than 0.05. His chest pain did not improve with sublingual nitroglycerin but got better after he was given some morphine. He was noted to be wheezing as well as coughing. Because there was some pleuritic nature to his chest pain a CT scan of his chest was ordered which showed no evidence of pulmonary emboli. Lungs showed moderate emphysematous changes with moderate pulmonary fibrotic changes. He also has a well-circumscribed 7 mm right upper lobe nodule that had previously was documented on a screening exam 3 days prior. He had no pericardial effusion and no cardiomegaly on his CT scan. Patient was given a dose of IV Solu-Medrol as well as DuoNeb aerosol treatments in the emergency department given concern for COPD exacerbation. Repeat troponin uptrended to 1 and then 2.42, Repeat ECG was obtained and his rhythm remains normal sinus rhythm at a rate of 73 bpm with isolated occasional PVCs. He has some nonspecific T wave abnormalities in the inferior leads III and aVF which were not noted on his prior ECG on arrival. He was given aspirin 324 mg chewable last night on admission and is already on aspirin and Plavix for his coronary stents. In light of his rising troponin and concern for NSTEMI he was started on a heparin drip. He was accepted to [facility] for LHC. He was chest pain free and HD stable at time of transfer Home Meds and New Rx's Prescriptions: New metoprolol tartrate 25 mg Tablet 12.5 mg PO Q12H Qty: 10 RF: 0 heparin (porcine) in 5 % dex 25,000 unit/250 mL(100 unit/mL) Parenteral Solution 25,000 unit IV INFUSION Qty: 100 RF: 0 Continued nicotine (polacrilex) [Nicorette] 4 mg lozenge 4 mg MM Q4H PRN (Reason: nicotine cravings) Qty: 72 RF: 2 amlodipine 5 mg tablet 5 mg PO BID Qty: 180 RF: 4 atorvastatin 40 mg tablet 40 mg PO DAILY Qty: 90 RF: 4 clopidogrel [Plavix] 75 mg tablet 75 mg PO DAILY Qty: 90 RF: 4 losartan 100 mg tablet 100 mg PO DAILY Qty: 90 RF: 3 metformin 500 mg tablet,ER luis m.retention 24 hr 500 mg PO .qod RF: 0 albuterol sulfate [Proventil HFA] 90 mcg/actuation HFA aerosol inhaler 2 puff IH Q6H PRN (Reason: shortness of breath or wheezing) Qty: 6.7 RF: 5 budesonide 0.5 mg/2 mL suspension for nebulization 0.5 mg Inhalation BID Qty: 60 RF: 11 fluticasone propionate 50 mcg/actuation spray,suspension 2 spray NS DAILY Qty: 1 RF: 5 Remicade 100 MG recon soln 1,000 mg IV .[id number] RF: 0 albuterol sulfate [ProAir HFA] 8.5 GM HFA aerosol inhaler 2 puff Inhalation QID PRN Qty: 1 RF: 11 nitroglycerin [Nitrostat] 0.4 MG tablet, sublingual 0.4 mg Sublingual PRN Qty: 25 RF: 11 aspirin 81 MG tablet,chewable 81 mg PO DAILY RF: 0 omeprazole 40 mg capsule,delayed release(DR/EC) 40 mg PO DAILY PRN (Reason: gerd) Qty: 90 RF: 3 Chantix Continuing Month Box 1 mg tablet 1 mg PO BID Qty: 60 RF: 2 acetaminophen 650 MG tablet extended release 650 mg PO Q8H PRN (Reason: Pain) Qty: 20 RF: 0 tamsulosin 0.4 mg Capsule 0.4 mg PO DAILY RF: 0 Discontinued acebutolol 200 mg Capsule 200 mg PO DIRECTED RF: 0 No Action (DME) FreeStyle Test strip 1 strip Miscellaneous DAILY Qty: 100 RF: 4 (DME) Space Chamber Plus 1 EACH spacer 1 ea Miscellaneous PRN Qty: 1 RF: 0 (DME) lancets [FreeStyle Lancets] 1 EACH misc 1 ea Intradermal DAILY Qty: 100 RF: 4 DS: Summary Status at Discharge Functional status at discharge: independent ambulation Overall status at discharge: patient is not back to baseline Mental Status: mental status grossly normal Speech and Movement: speech and movement normal Mood: congruent mood Affect: normal affect Exam Const General: cooperative, comfortable, no acute distress and well developed Nutritional Appearance: overweight Orientation: alert, awake and oriented x3 HENMT Head: normal to inspection, no palpable skull fracture, normocephalic and atraumatic Ears: external ears normal and TM's normal bilaterally General nose exam: external nose normal, nares normal and nasal mucous membranes and turbinates normal Face and sinus: normal facial exam Mouth: oral mucosae normal, lip normal, tongue normal, oropharynx normal and moist mucous membranes Teeth and gingiva: edentulous Throat: posterior oropharynx normal Eyes General: appearance normal, both eyes and all related structures Alignment and Position: alignment normal Periorbital: periorbital findings normal Eyelids: eyelids normal Conjunctivae: conjunctivae normal Sclera: sclerae normal Cornea: corneas normal Pupils: PERRL EOM: EOM intact bilaterally Neck Neck: normal visual inspection, full ROM, no lymphadenopathy, trachea midline, supple and no JVD Thyroid: thyroid normal Carotids: normal carotid upstroke Lymphatic: no lymphadenopathy noted Resp Effort & Inspection: normal respiratory effort and able to speak in complete sentences Auscultation: no rales, no rhonchi and wheezes scattered wheezes Percussion: percussion normal Cardio Jugular venous pressure: no JVD Palpation: normal PMI Rate: regular rate Rhythm: regular rhythm Heart Sounds: S1 normal, S2 normal, normal, physiologic split S2, no gallops, no murmurs and no rubs Bruits: no abdominal aortic bruits and no carotid bruits Pulses: normal peripheral pulses GI Inspection: normal to inspection and obesity Palpation: soft and no hepatosplenomegaly Percussion: normal to percussion Rectal Exam: deferred General: bladder normal to palpation and No CVA tenderness Back/Spine/Pelvis Back: no CVA tenderness Cervical Spine: normal cervical lordosis Thoracic/Lumbar Spine: thoracic and lumbar spine normal to inspection Skin General skin exam: no rashes or lesions noted, elasticity normal and turgor normal Lesions: no lesions Rashes: no rashes Trauma: no lacerations or abrasions Wounds: no wounds Extrem General: normal to inspection, full ROM, normal capillary refill, no joint enlargement, no clubbing, cyanosis or edema, no pedal edema, no calf tenderness and amputation noted Hand: left (left distal thumb) Psych Appearance: grossly normal Mental Status: mental status grossly normal Speech and Movement: speech and movement normal Mood: congruent mood Affect: normal affect Attitude: cooperative Thought Process: normal Thought Content: normal Insight: insight good Judgment: judgment good DS: Data Vitals/I&O Vitals and I&O: Vital Signs Temperature 35.7 C L 05/25/19 07:14 Temperature Source Tympanic 05/25/19 07:14 Pulse 61 05/25/19 08:08 Pulse Rhythm Irregular 05/25/19 07:20 Pulse 73 05/25/19 01:50 Respiratory Rate 18 05/25/19 08:08 Respiratory Effort Non-Labored 05/25/19 07:20 Respiratory Depth Normal 05/25/19 07:20 Respiratory Pattern Normal 05/25/19 07:20 Blood Pressure 155/75 H 05/25/19 07:14 Blood Pressure Mean 93 05/25/19 01:46 Pulse Oximetry 96 05/25/19 08:08 Oxygen Delivery Method Nasal Cannula 05/25/19 08:08 Oxygen Flow Rate 2 05/25/19 08:08 Pain Level 0 05/25/19 07:14 Intake & Output 05/24/19 05/24/19 05/25/19 11:59 23:59 11:59 Intake Total 330 / 330 Output Total 475 / 475 Balance -145 / -145 Weight 207 kg 94.8 kg Intake: IV 30 / 30 Oral 300 / 300 Output: Urine 475 / 475 Other: Urine Color Yellow Urine Appearance Clear Urine Odor None Voiding Methods Urinal Data Completed and Pending Labs on day of discharge: Labs from last 24 hours 05/25/19 05/25/19 05/25/19 13:10 11:00 07:45 WBC RBC Hgb Hct MCV MCH MCHC RDW Plt Count MPV Immature Gran % Neutrophils % Lymphocytes % Monocytes % Eosinophils % Basophils % Absolute Neutrophils Absolute Lymphocytes Absolute Monocytes Absolute Eosinophils Absolute Basophils PT INR APTT Pending Sodium Potassium Chloride Carbon Dioxide Anion Gap BUN Creatinine Estimated GFR/1.73 m2 Glucose Hemoglobin A1c Calcium Magnesium Total Bilirubin AST ALT Alkaline Phosphatase Troponin I Pending 2.42 H* NT-Pro-B Natriuret Pep Total Protein Albumin Triglycerides Total Cholesterol LDL Cholesterol, Calc HDL Cholesterol 05/25/19 05/25/19 05/25/19 06:46 06:46 06:46 WBC 7.12 RBC 4.65 Hgb 14.4 Hct 42.2 MCV 90.8 MCH 31.0 MCHC 34.1 RDW 13.9 Plt Count 199 MPV 12.0 H Immature Gran % 0.3 Neutrophils % 90.0 Lymphocytes % 8.8 Monocytes % 0.7 Eosinophils % 0.1 Basophils % 0.1 Absolute Neutrophils 6.40 Absolute Lymphocytes 0.63 L Absolute Monocytes 0.05 L Absolute Eosinophils 0.01 Absolute Basophils 0.01 PT INR APTT Sodium Potassium Chloride Carbon Dioxide Anion Gap BUN Creatinine Estimated GFR/1.73 m2 Glucose Hemoglobin A1c 8.6 H Calcium Magnesium Total Bilirubin AST ALT Alkaline Phosphatase Troponin I NT-Pro-B Natriuret Pep Total Protein Albumin Triglycerides 65 Total Cholesterol 166 LDL Cholesterol, Calc 115 HDL Cholesterol 38 L 05/25/19 05/25/19 05/24/19 06:46 03:58 23:40 WBC RBC Hgb Hct MCV MCH MCHC RDW Plt Count MPV Immature Gran % Neutrophils % Lymphocytes % Monocytes % Eosinophils % Basophils % Absolute Neutrophils Absolute Lymphocytes Absolute Monocytes Absolute Eosinophils Absolute Basophils PT 9.3 INR 0.9 APTT 22.4 Sodium 140 Potassium 3.6 Chloride 103 Carbon Dioxide 25.9 Anion Gap 11.1 H BUN 18 Creatinine 1.25 Estimated GFR/1.73 m2 56.94 Glucose 273 H Hemoglobin A1c Calcium 9.1 Magnesium Total Bilirubin AST ALT Alkaline Phosphatase Troponin I 1.01 H* NT-Pro-B Natriuret Pep 264 Total Protein Albumin Triglycerides Total Cholesterol LDL Cholesterol, Calc HDL Cholesterol 05/24/19 05/24/19 23:40 23:40 WBC 9.47 RBC 4.83 Hgb 15.4 Hct 44.1 MCV 91.3 MCH 31.9 MCHC 34.9 RDW 14.0 Plt Count 225 MPV 12.3 H Immature Gran % 0.3 Neutrophils % 55.1 Lymphocytes % 28.2 Monocytes % 11.9 Eosinophils % 4.1 Basophils % 0.4 Absolute Neutrophils 5.21 Absolute Lymphocytes 2.67 Absolute Monocytes 1.13 H Absolute Eosinophils 0.39 Absolute Basophils 0.04 PT INR APTT Sodium 141 Potassium 3.6 Chloride 103 Carbon Dioxide 22.9 Anion Gap 15.1 H BUN 18 Creatinine 1.28 Estimated GFR/1.73 m2 55.40 Glucose 242 H Hemoglobin A1c Calcium 8.6 Magnesium 1.8 Total Bilirubin 0.5 AST 22 ALT 39 Alkaline Phosphatase 89 Troponin I < 0.05 NT-Pro-B Natriuret Pep Total Protein 7.7 Albumin 3.7 Triglycerides Total Cholesterol LDL Cholesterol, Calc HDL Cholesterol FOR[facility]LY [facility] Medical History ASCVD (arteriosclerotic cardiovascular disease) (Chronic 05/05/13) 2 NEW STENTS 04/22 H/O IMI; angioplasty and stent; [place] , 02/11; CVA/TIA Chronic obstructive lung disease (Chronic) pulmonary fibrosis on chest xray ongoing tobacco use add back budesonide nebs to see if we can improve cough CVA (cerebral vascular accident) (Resolved 11/21/17) Depressive disorder (Chronic) Diabetes mellitus (Chronic 05/05/13) check A1c and creat Gastroesophageal reflux disease (Chronic) Hyperlipidemia (Chronic 05/05/13) Hypertension (Chronic) same meds, good BP here today Rheumatoid arthritis (Chronic 05/05/13) [facility], Dr Leon Surgical History Colonoscopy - MAC (05/16/13) Colonoscopy - MAC (11/13/16) Colostomy (~2006) TEMP W/ REVISION Excision, Lipoma (05/19/16) posterior neck Hernia Repair, Incisional KNEE REPAIR RIGHT RESECTION ANGIOFIBROMA;RIGHT FOOT 02/04/18 Family History Mother Essential hypertension Heart disease Stroke Father Stroke Brother Heart disease Family History Diabetes Heart disease Cancer Brother No problems noted. Brother No problems noted. Sister No problems noted. Sister Alcohol abuse Social History (Updated 05/25/19 @ 07:07 by Teo Brewer) Smoking/Tobacco Use Status: Current every day Tobacco Type: cigarettes Smoking packs per day: 1 Smoking cigarettes per day: 20.0 Tobacco: How many years used: 60 Quit status: has quit before Second Hand Exposure: Yes Alcohol Intake: former Drug use: Never Substance use type: does not use Caregiver/Support person: No Household members: none Housing: house Communication Needs: Hard of Hearing Do you need help understanding health information?: Rarely Pets and animals: No Sexually active: No Current gender identity: male What is your relationship status?: How often do you talk on the phone with friends or family?: decline to answer How often do you get together with friends or relatives?: decline to answer How often do you attend scientologist or episcopalian services?: decline to answer Do you belong to any clubs or organized social groups?: decline to answer Panel score (0-1 are the most socially isolated patients): 0 What type of physical activity do you participate in: decline to answer Duration: decline to answer Frequency: decline to answer Monika/Evangelical: None Special monika needs: No Seatbelt use: sometimes Helmet use: No Drive intox or ride w/intox food service driver: No Do you feel safe at home: Yes Do you feel safe in your relationship?: Yes Additional Social history: twice; lives alone [address] [facility] [address] [facility]; has 4 grown children;3 daughters, 1 son
--- NOTE | 2019-05-25 11:40 | NUR.NOTE ---
Nursing Note: Report phoned to Britta at [facility] recovery. All questions answered
[2019-05-25 11:48] LABS: Troponin I 2.31 ng/mL (0.00-0.06)
--- NOTE | 2019-05-25 13:59 | PDOC.CMIN ---
- If Service Date Differs Date of service: 05/25/19 Time of Service: 14:00 Care Management Initial Assess REASON FOR HOSPITALIZATION:: Chest Pain, COPD Exacerbation PAST MEDICAL HISTORY/PAST SURGICAL HISTORY:: Medical History. ASCVD (arteriosclerotic cardiovascular disease) (Chronic 05/05/13). 2 NEW STENTS 04/22. H/O IMI; angioplasty and stent; [place] , 02/11; CVA/TIA. Chronic obstructive lung disease (Chronic). pulmonary fibrosis on chest xray. ongoing tobacco use. add back budesonide nebs to see if we can improve cough. CVA (cerebral vascular accident) (Resolved 11/21/17). Depressive disorder (Chronic). Diabetes mellitus (Chronic 05/05/13). check A1c and creat. Gastroesophageal reflux disease (Chronic). Hyperlipidemia (Chronic 05/05/13). Hypertension (Chronic). same meds, good BP here today. Rheumatoid arthritis (Chronic 05/05/13). [facility] [place], Dr Leon. Surgical History. Colonoscopy - MAC (05/16/13). Colonoscopy - MAC (11/13/16). Colostomy (~2006). TEMP W/ REVISION. Excision, Lipoma (05/19/16). posterior neck. Hernia Repair, Incisional. KNEE REPAIR. RIGHT. RESECTION. ANGIOFIBROMA;RIGHT FOOT 02/04/18 PREVIOUS FUNCTIONAL STATUS/SOCIAL/FAMILY SUPPORTS:: Bobby lives at home with his son, Scot, who helps him at home, although he is independent at baseline. He also has three daughters and several grandkids and great grandkids who he is close with. 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 CURRENT FUNCTIONAL STATUS:: Bobby was lying in bed when CM was in the room. He said that he was tired and uncomfortable but that his pain is under control. He stated that he has had a couple of heart attacks in the past. He also reported that the provider had told him that they were planning to transfer him to [facility] as soon as they have a bed available. He is agreeable to the plan. CM will follow. ADVANCE DIRECTIVES:: On file (onbase) listing Kandis (daughter) as agent, and Bobby Neal (son) as secondary agent. Has patient been provided with information about the portal?: Yes Did the patient sign up for the portal?: No (Not interested) CODE STATUS:: Full Code INSURANCE COVERAGE / FINANCIAL ISSUES:: MCR/ Fin Assist 100% CURRENT HOME/COMMUNITY SERVICES/EQUIPMENT:: Bobby has a nebulizer at home. PRIMARY CARE PHYSICIAN:: Mike Burns POTENTIAL DISCHARGE NEEDS:: Evaluations of further needs, follow up appointments. PATIENT/FAMILY EDUCATION NEEDS:: Review of community based supports, discharge plan, discussion of self care needs including Ask Me Three. ANTICIPATED BARRIERS TO DISCHARGE:: None identified at this time. TRANSPORTATION:: Bobby will be transported via ambulance to [facility] [place] PLAN:: Per provider, CM anticipates Bobby will be transferred to [facility] [place] via ambulance.
== END 2019-05-25 11:51 | disposition short-term general hospital (02) | DRG 281 ==
LOC: ER 05-25 01:54 → MS 05-25 02:15
PROVIDERS: Admitting Provider Internal Medicine; Emergency Provider Emergency Medicine; PCP Family Medicine; Visit Provider Internal Medicine
DX: I21.4 Non-ST elevation (NSTEMI) myocardial infarction (principal); J44.1 Chronic obstructive pulmonary disease with (acute) exacerbation; I10 Essential (primary) hypertension; I25.10 Atherosclerotic heart disease of native coronary artery without angina pectoris; E11.9 Type 2 diabetes mellitus without complications; I25.2 Old myocardial infarction; K21.9 Gastro-esophageal reflux disease without esophagitis; Z79.84 Long term (current) use of oral hypoglycemic drugs; Z95.5 Presence of coronary angioplasty implant and graft; F17.210 Nicotine dependence, cigarettes, uncomplicated; E78.5 Hyperlipidemia, unspecified
CPT/HCPCS: 36415; 71275; 80048; 80053; 80061; 93005; 93306; 94640; 99223; 99238; 99285; 83036; 83735; 83880; 84484; 85025; 85610; 85730; 93010; G0378; J2270; J2930; J3490; J7613; J7620; J7626; Q9967

== ENCOUNTER 2019-06-01 10:03 | Outpatient (CLI) | payer MEDICARE, SELFPAY ==
[2019-06-01 11:15] LABS: Hemoglobin A1C 8.5 % (4.5-6.2)
[2019-06-01 11:19] LABS: ALT 30 U/L (16-63); AST 12 U/L (15-37); Albumin 3.4 g/dL (3.4-5.0); Alkaline Phosphatase 72 U/L (46-116); Bilirubin, Direct 0.17 mg/dL (0.00-0.20); Bilirubin, Total 0.6 mg/dL (0.2-1.0); Total Protein 6.5 g/dL (6.4-8.2)
[2019-06-01 11:30] LABS: Calculated LDL 40 mg/dL; Cholesterol 92 mg/dL (50-200); HDL Cholesterol 41 mg/dL (40-60); Triglyceride 56 mg/dL (30-150)
== END 2019-06-01 10:23 ==
PROVIDERS: PCP Family Medicine; Visit Provider Family Medicine
DX: E11.9 Type 2 diabetes mellitus without complications (principal); I25.10 Atherosclerotic heart disease of native coronary artery without angina pectoris; E78.2 Mixed hyperlipidemia
CPT/HCPCS: 36415; 80061; 80076; 83036

== ENCOUNTER 2019-06-01 13:30 | Outpatient (RCR) | payer MEDICARE, SELFPAY | END 2019-06-12 23:59 | disposition home or self-care (01) | LOC: CR 13:30 | PROVIDERS: PCP Family Medicine; Visit Provider Family Medicine | DX: Z51.89 Encounter for other specified aftercare (principal) ==

== ENCOUNTER 2019-06-07 12:22 | Emergency (ER) | payer MEDICARE, SELFPAY ==
[2019-06-07 12:26] VITALS: PULSE 63; RESP 16; TEMP 36.6; O2SAT 96
[2019-06-07 12:33] VITALS: RESP 16
--- NOTE | 2019-06-07 12:49 | ED.GENADUL_ITS ---
Discharge Plan Disposition Patient Disposition: HOME Condition: Fair Discharge Details Chief Complaint: GenMedical Clinical Impression: Cellulitis Primary Care Provider: Mike Burns ED Provider: Kathy Reinoso [place] Meds and New Rx's Prescriptions: New cephalexin [Keflex] 500 mg capsule 500 mg PO QID Qty: 28 RF: 0 Continued nicotine (polacrilex) [Nicorette] 4 mg lozenge 4 mg MM Q4H PRN (Reason: nicotine cravings) Qty: 72 RF: 2 (DME) FreeStyle Test strip 1 strip Miscellaneous DAILY Qty: 100 RF: 4 clopidogrel [Plavix] 75 mg tablet 75 mg PO DAILY Qty: 90 RF: 4 losartan 100 mg tablet 100 mg PO DAILY Qty: 90 RF: 3 albuterol sulfate [Proventil HFA] 90 mcg/actuation HFA aerosol inhaler 2 puff IH Q6H PRN (Reason: shortness of breath or wheezing) Qty: 6.7 RF: 5 metformin 500 mg tablet,ER luis m.retention 24 hr 500 mg PO .qod RF: 0 amlodipine 10 mg tablet 10 mg PO HS RF: 0 atorvastatin 80 mg tablet 80 mg PO QHS RF: 0 ezetimibe 10 mg tablet 10 mg PO DAILY RF: 0 metoprolol succinate 25 mg tablet extended release 24 hr 25 mg PO DAILY RF: 0 pantoprazole 40 mg tablet,delayed release (DR/EC) 40 mg PO DAILY RF: 0 spironolactone 25 mg tablet 25 mg PO DAILY RF: 0 Jardiance 10 mg tablet 10 mg PO DAILY Qty: 30 RF: 2 nitroglycerin [Nitrostat] 0.4 mg tablet, sublingual 0.4 mg Sublingual PRN Qty: 25 RF: 11 benzonatate [Tessalon Perles] 100 mg capsule 100 mg PO TID PRN (Reason: cough) Qty: 20 RF: 0 budesonide 0.5 mg/2 mL suspension for nebulization 0.5 mg Inhalation BID Qty: 60 RF: 11 fluticasone propionate 50 mcg/actuation spray,suspension 2 spray NS DAILY Qty: 1 RF: 5 (DME) Space Chamber Plus 1 EACH spacer 1 ea Miscellaneous PRN Qty: 1 RF: 0 Remicade 100 MG recon soln 1,000 mg IV .[id number] RF: 0 albuterol sulfate [ProAir HFA] 8.5 GM HFA aerosol inhaler 2 puff Inhalation QID PRN Qty: 1 RF: 11 aspirin 81 MG tablet,chewable 81 mg PO DAILY RF: 0 (DME) lancets [FreeStyle Lancets] 1 EACH misc 1 ea Intradermal DAILY Qty: 100 RF: 4 Chantix Continuing Month Box 1 mg tablet 1 mg PO BID Qty: 60 RF: 2 acetaminophen 650 MG tablet extended release 650 mg PO Q8H PRN (Reason: Pain) Qty: 20 RF: 0 tamsulosin 0.4 mg Capsule 0.4 mg PO DAILY RF: 0 Discharge Instructions Instructions: Cellulitis (ED) Additional Instructions: Encourage hydration. Please take antibiotics as prescribed. Even if symptoms improve, please take the entire course. Please follow-up with primary care next week for reevaluation. If you develop fever/chills, spreading of the redness, increased pain or other new/worsening symptoms please seek care urgently once again. Referrals: Mike Burns [Primary Care Provider] - Discharge Data Discharge Date/Time-TO BE ENTERED AT DEPARTURE: 06/07/19 13:14 Medical Decision Making Patient is a 73-year-old [id number] male presents today with chief complaint of right upper extremity pain. States the discomfort began yesterday. No new area of erythema extending from the right AC IV access site. Patient was hospitalized last week after [place] at which time he had endovascular stent placement. Access was obtained to the right radius but this appears to be healing well no signs of infection. Denies any fevers or chills. Is constitutionally feeling otherwise well. On exam, he has well-defined area of erythema to the right medial upper arm consistent with cellulitis. I do not see any evidence to suggest bacteremia vertebral infection. He is afebrile with normal vital signs. As the patient presented initially with right arm pain in the setting of recent [place], nursing staff obtained EKG. This was reviewed by Dr. Amaya. Patient is noted to have essentially low-grade 60. Does have frequent ectopic beats. No acute ischemic changes noted. Patient diagnosed with cellulitis. Plan treat with oral antibiotics. Is given strict return precautions. He has a follow-up appointment already scheduled next week with his primary care. All his questions and concerns were addressed and he is in agreement with this plan. HPI General Mode of arrival: ambulatory . Date/Time Provider Initiated Documentation: 06/07/19 12:48 . Limitations to Documentation: no limitations . Information obtained by: patient and RN notes reviewed . History of Present Illness 73 year old M presents to the emergency department with the chief complaint of right upper arm pain, described as moderate, with intensity rated at 5. Quality is described as aching, and is localized to the right and upper extremity. Patient reports no radiation. Patient started experiencing this day(s) (1) and it has been constant. No relieving factors improve symptom(s), No exacerbating factors reported . Patient notes rash (noted erythema to right upper arm); denies chest pain, cough, fever/chills, nausea/vomiting, shortness of breath and weakness. Patient did receive the following treatments prior to arrival, none Related Data Home Medications Medication Instructions Recorded Confirmed Space Chamber Plus #1 05/27/15 06/02/19 Remicade 1,000 mg IV .[id number] vial 05/31/15 06/02/19 acetaminophen 650 mg PO Q8H PRN #20 tablet.er 04/30/17 06/02/19 albuterol sulfate [ProAir HFA] 2 puff INHALATION QID PRN #1 06/04/17 06/02/19 inhaler aspirin 81 mg PO DAILY tab-cap 05/13/18 06/02/19 lancets [FreeStyle Lancets] #100 ea 05/13/18 06/02/19 budesonide 0.5 mg/2 mL suspension 0.5 mg INHALATION BID #60 amp 08/12/18 06/02/19 for nebulization fluticasone propionate 50 2 spray NS DAILY #1 gm 11/15/18 06/02/19 mcg/actuation nasal spray,suspension albuterol sulfate 90 mcg/actuation 2 puff IH Q6H PRN #6.7 gm 02/21/19 06/02/19 aerosol inhaler blood sugar diagnostic #100 strip 02/21/19 06/02/19 clopidogrel 75 mg tablet 75 mg PO DAILY #90 tab 02/21/19 06/02/19 losartan 100 mg tablet 100 mg PO DAILY #90 tab-cap 02/21/19 06/02/19 nicotine (polacrilex) 4 mg buccal 4 mg MM Q4H PRN #72 each 02/21/19 06/02/19 lozenge varenicline 1 mg tablet 1 mg PO BID #60 tab 05/11/19 06/02/19 tamsulosin 0.4 mg PO DAILY 05/25/19 06/02/19 amlodipine 10 mg tablet 10 mg PO HS tab 06/02/19 06/02/19 atorvastatin 80 mg tablet 80 mg PO QHS 06/02/19 06/02/19 benzonatate 100 mg capsule 100 mg PO TID PRN #20 cap 06/02/19 06/02/19 empagliflozin 10 mg tablet 10 mg PO DAILY #30 tab 06/02/19 06/02/19 ezetimibe 10 mg tablet 10 mg PO DAILY 06/02/19 06/02/19 metformin 500 mg 24 hr 500 mg PO .qod tab-cap 06/02/19 06/02/19 tablet,extended release metoprolol succinate 25 mg 25 mg PO DAILY 06/02/19 06/02/19 tablet,extended release 24 hr nitroglycerin 0.4 mg sublingual 0.4 mg SUBLINGUAL PRN #25 tab-cap 06/02/19 06/02/19 tablet pantoprazole 40 mg tablet,delayed 40 mg PO DAILY 06/02/19 06/02/19 release spironolactone 25 mg tablet 25 mg PO DAILY 06/02/19 06/02/19 cephalexin [Keflex] 500 mg PO QID #28 cap 06/07/19 Previous Rx's Medication Instructions Recorded acetaminophen 650 mg PO Q8H PRN #20 tablet.er 04/30/17 albuterol sulfate [ProAir HFA] 2 puff INHALATION QID PRN #1 06/04/17 inhaler lancets [FreeStyle Lancets] #100 ea 05/13/18 budesonide 0.5 mg/2 mL suspension 0.5 mg INHALATION BID #60 amp 08/12/18 for nebulization fluticasone propionate 50 2 spray NS DAILY #1 gm 11/15/18 mcg/actuation nasal spray,suspension albuterol sulfate 90 mcg/actuation 2 puff IH Q6H PRN #6.7 gm 02/21/19 aerosol inhaler blood sugar diagnostic #100 strip 02/21/19 clopidogrel 75 mg tablet 75 mg PO DAILY #90 tab 02/21/19 losartan 100 mg tablet 100 mg PO DAILY #90 tab-cap 02/21/19 nicotine (polacrilex) 4 mg buccal 4 mg MM Q4H PRN #72 each 02/21/19 lozenge varenicline 1 mg tablet 1 mg PO BID #60 tab 05/11/19 benzonatate 100 mg capsule 100 mg PO TID PRN #20 cap 06/02/19 empagliflozin 10 mg tablet 10 mg PO DAILY #30 tab 06/02/19 nitroglycerin 0.4 mg sublingual 0.4 mg SUBLINGUAL PRN #25 tab-cap 06/02/19 tablet cephalexin [Keflex] 500 mg PO QID #28 cap 06/07/19 Allergies Allergy/AdvReac Type Severity Reaction Status Date / Time venom-honey bee Allergy Severe ANAPHYLAXSI Unverified 06/02/19 15:39 [bee venom (honey bee)] S Sulfa (Sulfonamide Allergy Unknown unknown Unverified 06/02/19 15:39 Antibiotics) leflunomide [From Arava] AdvReac Intermediate DIARRHEA Unverified 06/02/19 15:39 metformin AdvReac Intermediate diarrhea Unverified 06/02/19 15:39 General Stated Complaint: GenMedical STAR: 3 Review of Systems Constitutional Constitutional: Reports as per HPI, Denies chills, Denies fever(s), Denies headache(s) and Denies weakness ENT Ears, Nose, Mouth, and Throat: Denies headache(s) Cardiovascular Cardiovascular: Reports as per HPI Respiratory Respiratory: Reports as per HPI and Denies cough Musculoskeletal Musculoskeletal: Reports as per HPI and Denies tingling Integumentary/Breasts Skin/Breast: Reports as per HPI, Denies rash and Denies wounds Neurologic Neurologic: Reports as per HPI, Denies headache(s), Denies tingling, Denies paresthesias and Denies weakness [facility] Medical History ASCVD (arteriosclerotic cardiovascular disease) (Chronic 05/05/13) 2 NEW STENTS 04/22 H/O IMI; angioplasty and stent; [place] 12/00, 6; CVA/TIA Chronic obstructive lung disease (Chronic) pulmonary fibrosis on chest xray ongoing tobacco use add back budesonide nebs to see if we can improve cough CVA (cerebral vascular accident) (Resolved 11/21/17) Depressive disorder (Chronic) Diabetes mellitus (Chronic 05/05/13) check A1c and creat Gastroesophageal reflux disease (Chronic) Hyperlipidemia (Chronic 05/05/13) Hypertension (Chronic) same meds, good BP here today RCA occlusion (Acute) 05/25/19 [facility] [place] Rheumatoid arthritis (Chronic 05/05/13) [facility], Dr Leon Surgical History Colonoscopy - MAC (05/16/13) Colonoscopy - MAC (11/13/16) Colostomy (~2006) TEMP W/ REVISION Excision, Lipoma (05/19/16) posterior neck Hernia Repair, Incisional KNEE REPAIR RIGHT RESECTION ANGIOFIBROMA;RIGHT FOOT 02/04/18 Stented coronary artery (Acute) 05/25/19 [facility] [place]; s/p stent of old stent- Social History Smoking/Tobacco Use Status: Former Tobacco Use Quit Date: 05/25/19 Tobacco: How many years used: 60 Quit status: has quit before Second Hand Exposure: Yes Alcohol Intake: former Drug use: Never Substance use type: does not use Caregiver/Support person: No Household members: none Housing: house Communication Needs: Hard of Hearing Do you need help understanding health information?: Rarely Pets and animals: No Sexually active: No Current gender identity: male What is your relationship status?: How often do you talk on the phone with friends or family?: decline to answer How often do you get together with friends or relatives?: decline to answer How often do you attend anabaptist or restorationist services?: decline to answer Do you belong to any clubs or organized social groups?: decline to answer Panel score (0-1 are the most socially isolated patients): 0 What type of physical activity do you participate in: decline to answer Duration: decline to answer Frequency: decline to answer Monika/Advent: None Special monika needs: No Seatbelt use: sometimes Helmet use: No Drive intox or ride w/intox auto driver: No Do you feel safe at home: Yes Do you feel safe in your relationship?: Yes Additional Social history: twice; lives alone in trailer; has 4 grown children;3 daughters, 1 son Exam Const General: cooperative, healthy appearing, comfortable, no acute distress, well developed and well groomed Nutritional Appearance: average body habitus and well nourished Orientation: alert and awake Resp Effort & Inspection: normal respiratory effort, able to speak in complete sentences and no respiratory distress Auscultation: clear to auscultation bilaterally Cardio Rate: regular rate Rhythm: regular rhythm Heart Sounds: S1 normal and S2 normal Skin General skin exam: erythema (as drawn below. No fluctuance) Neuro General: alert and awake Cognition: normal cognition Speech: speech normal Gait: normal gait Motor: muscle tone normal throughout Sensory Exam: no sensory deficits noted Extrem Right upper extremity: full ROM, normal capillary refill, no joint enlargement, shoulder/upper arm Details: tenderness (medial upper arm), axillary nerve sensory function normal, normal ROM and warmth (area of warmth/erythema medial upper arm extending from IV site); no abrasions, no lacerations and no ecchymosis, elbow/forearm Details: normal to inspection and normal ROM; no tenderness, no swelling and no ecchymosis, wrist Details: normal to inspection, other (small puncture wound with no signs of infection to right radial side consistnet with surgery) and normal vascular exam and hand; no edema Shoulder/upper arm images: 1. Area of erythema. No induration, fluctuance. This is extending for IV site at right AC from recent hospitalization Psych Appearance: grossly normal and well kempt Mental Status: mental status grossly normal Speech and Movement: speech and movement normal Course Vital Signs Vital signs: Vital Signs Temperature 36.6 C 06/07/19 12:26 Pulse 63 06/07/19 12:26 Respiratory Rate 16 06/07/19 12:26 Pulse Oximetry 96 06/07/19 12:26 Temperature 36.6 C 06/07/19 12:26 Temperature Source Skin 06/07/19 12:26 Pulse 63 06/07/19 12:26 Respiratory Rate 16 06/07/19 12:33 Respiratory Effort Non-Labored 06/07/19 12:33 Respiratory Depth Normal 06/07/19 12:33 Respiratory Pattern Normal 06/07/19 12:33 Pulse Oximetry 96 06/07/19 12:26 Oxygen Delivery Method Room Air 06/07/19 12:26 Oxygen Flow Rate 0 06/07/19 12:26 Pain Level 5 06/07/19 12:26
== END 2019-06-07 13:14 | disposition home or self-care (01) ==
PROVIDERS: Emergency Provider Physician Assistant; PCP Family Medicine
DX: L03.113 Cellulitis of right upper limb (principal); R94.31 Abnormal electrocardiogram [ECG] [EKG]; J44.9 Chronic obstructive pulmonary disease, unspecified; I10 Essential (primary) hypertension; E11.9 Type 2 diabetes mellitus without complications; Z79.84 Long term (current) use of oral hypoglycemic drugs; Z95.5 Presence of coronary angioplasty implant and graft
CPT/HCPCS: 93005; 99283; 93010

== ENCOUNTER 2019-06-27 01:55 | Outpatient (RCR) | payer MEDICARE, SELFPAY ==
[2019-06-27] VITALS (7 sets, daily range): BP systolic 120–142; BP diastolic 64–82; PULSE 45–60; RESP 18–19; TEMP 36.5–36.6; O2SAT 94–100
[2019-06-27] MEDS: methylPREDNISolone SUCC 125 MG VIAL 100 MG IV (09:12)
[2019-06-27] MEDS: diphenhydrAMINE 50 MG/ML VIAL IVP (09:13)
[2019-06-27] MEDS: Normal Saline Flush 10 ML SYR IVP (09:13)
== END 2019-07-13 23:59 | disposition home or self-care (01) ==
LOC: INF 01:55
PROVIDERS: PCP Family Medicine; Visit Provider Family Medicine
DX: M06.9 Rheumatoid arthritis, unspecified (principal)
CPT/HCPCS: 96365; 96366; 96374; J1200; J2930; J9310

== ENCOUNTER 2019-07-10 13:06 | Outpatient (RCR) | payer MEDICARE, SELFPAY | END 2019-07-13 23:59 | disposition home or self-care (01) | LOC: CR 13:06 | PROVIDERS: PCP Family Medicine; Visit Provider Family Medicine | DX: I25.2 Old myocardial infarction (principal); Z95.5 Presence of coronary angioplasty implant and graft; Z51.89 Encounter for other specified aftercare | CPT/HCPCS: S9472 ==

== ENCOUNTER 2019-07-10 16:46 | Emergency (ER) | payer MEDICARE, SELFPAY ==
[2019-07-10 16:51] VITALS: BP 128/61; PULSE 72; RESP 16; TEMP 36.3; O2SAT 93
--- NOTE | 2019-07-10 16:59 | ED.GENADUL_ITS ---
Discharge Plan Disposition Patient Disposition: HOME Condition: Improving Discharge Details Chief Complaint: EarProblem Clinical Impression: Exudative pharyngitis Primary Care Provider: Mike Burns ED Provider: Manolo Estes Home Meds and New Rx's Prescriptions: New penicillin V potassium 500 mg tablet 500 mg PO TID 10 Days Qty: 30 RF: 0 Continued nicotine (polacrilex) [Nicorette] 4 mg lozenge 4 mg MM Q4H PRN (Reason: nicotine cravings) Qty: 72 RF: 2 (DME) FreeStyle Test strip 1 strip Miscellaneous DAILY Qty: 100 RF: 4 clopidogrel [Plavix] 75 mg tablet 75 mg PO DAILY Qty: 90 RF: 4 losartan 100 mg tablet 100 mg PO DAILY Qty: 90 RF: 3 albuterol sulfate [Proventil HFA] 90 mcg/actuation HFA aerosol inhaler 2 puff IH Q6H PRN (Reason: shortness of breath or wheezing) Qty: 6.7 RF: 5 metformin 500 mg tablet,ER lius m.retention 24 hr 500 mg PO .qod RF: 0 amlodipine 10 mg tablet 10 mg PO HS RF: 0 atorvastatin 80 mg tablet 80 mg PO QHS RF: 0 metoprolol succinate 25 mg tablet extended release 24 hr 25 mg PO DAILY RF: 0 pantoprazole 40 mg tablet,delayed release (DR/EC) 40 mg PO DAILY RF: 0 spironolactone 25 mg tablet 25 mg PO DAILY RF: 0 Jardiance 10 mg tablet 10 mg PO DAILY Qty: 30 RF: 2 nitroglycerin [Nitrostat] 0.4 mg tablet, sublingual 0.4 mg Sublingual PRN Qty: 25 RF: 11 benzonatate [Tessalon Perles] 100 mg capsule 100 mg PO TID PRN (Reason: cough) Qty: 20 RF: 0 metformin 500 mg tablet 500 mg PO BID Qty: 60 RF: 0 ezetimibe 10 mg tablet 10 mg PO DAILY Qty: 30 RF: 11 budesonide 0.5 mg/2 mL suspension for nebulization 0.5 mg Inhalation BID Qty: 60 RF: 11 fluticasone propionate 50 mcg/actuation spray,suspension 2 spray NS DAILY Qty: 1 RF: 5 (DME) Space Chamber Plus 1 EACH spacer 1 ea Miscellaneous PRN Qty: 1 RF: 0 Remicade 100 MG recon soln 1,000 mg IV .[id number] RF: 0 albuterol sulfate [ProAir HFA] 8.5 GM HFA aerosol inhaler 2 puff Inhalation QID PRN Qty: 1 RF: 11 aspirin 81 MG tablet,chewable 81 mg PO DAILY RF: 0 (DME) lancets [FreeStyle Lancets] 1 EACH misc 1 ea Intradermal DAILY Qty: 100 RF: 4 Chantix Continuing Month Box 1 mg tablet 1 mg PO BID Qty: 60 RF: 2 acetaminophen 650 MG tablet extended release 650 mg PO Q8H PRN (Reason: Pain) Qty: 20 RF: 0 tamsulosin 0.4 mg Capsule 0.4 mg PO DAILY RF: 0 Discharge Instructions Instructions: Pharyngitis (ED) Additional Instructions: Home to rest. May gargle salt water for comfort. Tylenol if needed for pain. Take antibiotic's as prescribed. Continue your regular medications. Small, frequent sips of fluids and/or popsicles for comfort. Follow with regular doctor if not improving in 5 days time. Return for any acute concern. Medical Decision Making 73-year-old male presents with 2 days of sore throat. His also has complained of left ear pain. His vital signs are unremarkable. His exam is notable for a exudative pharyngitis. He is immunosuppressed with Remicade, takes Plavix, but no other anticoagulants. I will treat with a course of penicillin. He is stable for discharge to home. HPI General Mode of arrival: ambulatory . Date/Time Provider Initiated Documentation: 07/10/19 16:52 . Limitations to Documentation: no limitations . Information obtained by: patient . History of Present Illness 73 year old M p resents to the emergency department with the chief complaint of Left throat pain for 2 days, described as moderate, Quality is described as dull, and is localized to the mouth. Patient neck. Patient started experiencing this day(s) and it has been constant. No relieving factors improve symptom(s), No exacerbating factors reported . Patient notes cough and fever/chills; denies shortness of breath. Patient did receive the following treatments prior to arrival, none Related Data Home Medications Medication Instructions Recorded Confirmed Space Chamber Plus #1 05/27/15 06/29/19 Remicade 1,000 mg IV .[id number] vial 05/31/15 07/10/19 acetaminophen 650 mg PO Q8H PRN #20 tablet.er 04/30/17 07/10/19 albuterol sulfate [ProAir HFA] 2 puff INHALATION QID PRN #1 06/04/17 07/10/19 inhaler aspirin 81 mg PO DAILY tab-cap 05/13/18 07/10/19 lancets [FreeStyle Lancets] #100 ea 05/13/18 06/29/19 budesonide 0.5 mg/2 mL suspension 0.5 mg INHALATION BID #60 amp 08/12/18 07/10/19 for nebulization fluticasone propionate 50 2 spray NS DAILY #1 gm 11/15/18 07/10/19 mcg/actuation nasal spray,suspension albuterol sulfate 90 mcg/actuation 2 puff IH Q6H PRN #6.7 gm 02/21/19 07/10/19 aerosol inhaler blood sugar diagnostic #100 strip 02/21/19 06/29/19 clopidogrel 75 mg tablet 75 mg PO DAILY #90 tab 02/21/19 07/10/19 losartan 100 mg tablet 100 mg PO DAILY #90 tab-cap 02/21/19 07/10/19 nicotine (polacrilex) 4 mg buccal 4 mg MM Q4H PRN #72 each 02/21/19 07/10/19 lozenge varenicline 1 mg tablet 1 mg PO BID #60 tab 05/11/19 07/10/19 tamsulosin 0.4 mg PO DAILY 05/25/19 07/10/19 amlodipine 10 mg tablet 10 mg PO HS tab 06/02/19 07/10/19 atorvastatin 80 mg tablet 80 mg PO QHS 06/02/19 07/10/19 benzonatate 100 mg capsule 100 mg PO TID PRN #20 cap 06/02/19 07/10/19 empagliflozin 10 mg tablet 10 mg PO DAILY #30 tab 06/02/19 07/10/19 metformin 500 mg 24 hr 500 mg PO .qod tab-cap 06/02/19 07/10/19 tablet,extended release metoprolol succinate 25 mg 25 mg PO DAILY 06/02/19 07/10/19 tablet,extended release 24 hr nitroglycerin 0.4 mg sublingual 0.4 mg SUBLINGUAL PRN #25 tab-cap 06/02/19 07/10/19 tablet pantoprazole 40 mg tablet,delayed 40 mg PO DAILY 06/02/19 07/10/19 release spironolactone 25 mg tablet 25 mg PO DAILY 06/02/19 07/10/19 ezetimibe 10 mg tablet 10 mg PO DAILY #30 tab 06/29/19 07/10/19 metformin 500 mg tablet 500 mg PO BID #60 tab 06/29/19 07/10/19 penicillin V potassium 500 mg PO TID 10 Days #30 tab 07/10/19 Previous Rx's Medication Instructions Recorded acetaminophen 650 mg PO Q8H PRN #20 tablet.er 04/30/17 albuterol sulfate [ProAir HFA] 2 puff INHALATION QID PRN #1 06/04/17 inhaler lancets [FreeStyle Lancets] #100 ea 05/13/18 budesonide 0.5 mg/2 mL suspension 0.5 mg INHALATION BID #60 amp 08/12/18 for nebulization fluticasone propionate 50 2 spray NS DAILY #1 gm 11/15/18 mcg/actuation nasal spray,suspension albuterol sulfate 90 mcg/actuation 2 puff IH Q6H PRN #6.7 gm 02/21/19 aerosol inhaler blood sugar diagnostic #100 strip 02/21/19 clopidogrel 75 mg tablet 75 mg PO DAILY #90 tab 02/21/19 losartan 100 mg tablet 100 mg PO DAILY #90 tab-cap 02/21/19 nicotine (polacrilex) 4 mg buccal 4 mg MM Q4H PRN #72 each 02/21/19 lozenge varenicline 1 mg tablet 1 mg PO BID #60 tab 05/11/19 benzonatate 100 mg capsule 100 mg PO TID PRN #20 cap 06/02/19 empagliflozin 10 mg tablet 10 mg PO DAILY #30 tab 06/02/19 nitroglycerin 0.4 mg sublingual 0.4 mg SUBLINGUAL PRN #25 tab-cap 06/02/19 tablet ezetimibe 10 mg tablet 10 mg PO DAILY #30 tab 06/29/19 metformin 500 mg tablet 500 mg PO BID #60 tab 06/29/19 penicillin V potassium 500 mg PO TID 10 Days #30 tab 07/10/19 Allergies Allergy/AdvReac Type Severity Reaction Status Date / Time venom-honey bee Allergy Severe ANAPHYLAXSI Unverified 07/10/19 16:54 [bee venom (honey bee)] S Sulfa (Sulfonamide Allergy Unknown unknown Unverified 07/10/19 16:54 Antibiotics) leflunomide [From Arava] AdvReac Intermediate DIARRHEA Unverified 07/10/19 16:54 metformin AdvReac Intermediate diarrhea Unverified 07/10/19 16:54 General Stated Complaint: EarProblem STAR: 3 Review of Systems Narrative: No drooling, no change to voice, no difficulty swallowing. No shortness of breath. States his cough is chronic. Sick systems reviewed and otherwise negative [facility] Medical History ASCVD (arteriosclerotic cardiovascular disease) (Chronic 05/05/13) 2 NEW STENTS 04/22 H/O IMI; angioplasty and stent; NH , 02/11; CVA/TIA Chronic obstructive lung disease (Chronic) pulmonary fibrosis on chest xray ongoing tobacco use add back budesonide nebs to see if we can improve cough CVA (cerebral vascular accident) (Resolved 11/21/17) Depressive disorder (Chronic) Diabetes mellitus (Chronic 05/05/13) check A1c and creat Gastroesophageal reflux disease (Chronic) Hyperlipidemia (Chronic 05/05/13) Hypertension (Chronic) same meds, good BP here today [place]CA occlusion (Acute) [place] [facility] [place]umat[place] (Chronic 05/05/13) [facility] [place] Surgical History Colonoscopy - MAC (05/16/13) Colonoscopy - MAC (11/13/16) Colostomy (~2006) TEMP W/ REVISION Excision, Lipoma (05/19/16) posterior neck Hernia Repair, Incisional KNEE REPAIR RIGHT RESECTION ANGIOFIBROMA;RIGHT FOOT 02/04/18 Stented coronary artery (Acute) 05/25/[place] [facility] [place] s/p stent of old stent- Social History Smoking/Tobacco Use Status: Former Tobacco Use Quit Date: 05/25/19 Tobacco: How many years used: 60 Quit status: has quit before Second Hand Exposure: Yes Alcohol Intake: former Drug use: Never Substance use type: does not use Caregiver/Support person: No Household members: none Housing: house Communication Needs: Hard of Hearing Do you need help understanding health information?: Rarely Pets and animals: No Sexually active: No Current gender identity: male What is your relationship status?: How often do you talk on the phone with friends or family?: decline to answer How often do you get together with friends or relatives?: decline to answer How often do you attend sabianism or alevism services?: decline to answer Do you belong to any clubs or organized social groups?: decline to answer Panel score (0-1 are the most socially isolated patients): 0 What type of physical activity do you participate in: decline to answer Duration: decline to answer Frequency: decline to answer Monika/Holiness: None Special monika needs: No Seatbelt use: sometimes Helmet use: No Drive intox or ride w/intox city route driver: No Do you feel safe at home: Yes Do you feel safe in your relationship?: Yes Additional Social history: twice; lives alone in [facility]; has 4 grown children;3 daughters, 1 son Exam Narrative Exam Narrative: GEN: awake, alert, oriented 3. Pleasant, well groomed, interactive. HEAD: Normocephalic, atraumatic ENT: Mucous membranes moist, oropharynx with erythematous tonsillar pillars, lef t greater than right left with white exudate. No asymmetry or swelling, tympanic membranes clear bilaterally external ear exam unremarkable EYES: PERRL, EOMI NECK: Full ROM, no EVELIA, no menigismus CHEST/RESP: Nontender, clear to auscultation bilateral, no wheeze/rhonchi/rales EXT: Full ROM, no edema, no rash Neuro: Grossly normal neurologic exam, conversant, interactive. Psych: Speech fluent, thoughts congruent, affect normal Course Vital Signs Vital signs: Vital Signs Temperature 36.3 C L 07/10/19 16:51 Pulse 72 07/10/19 16:51 Respiratory Rate 16 07/10/19 16:51 Blood Pressure 128/61 07/10/19 16:51 Pulse Oximetry 93 L 07/10/19 16:51 Temperature 36.3 C L 07/10/19 16:51 Temperature Source Skin 07/10/19 16:51 Pulse 72 07/10/19 16:51 Respiratory Rate 16 07/10/19 16:51 Respiratory Effort Non-Labored 07/10/19 16:51 Blood Pressure 128/61 07/10/19 16:51 Blood Pressure Position Sitting 07/10/19 16:51 Pulse Oximetry 93 L 07/10/19 16:51 Oxygen Delivery Method Room Air 07/10/19 16:51 Oxygen Flow Rate 0 07/10/19 16:51 Pain Level 8 07/10/19 16:51
== END 2019-07-10 17:12 | disposition home or self-care (01) ==
LOC: ER 17:03
PROVIDERS: Emergency Provider Emergency Medicine; PCP Family Medicine
DX: J02.9 Acute pharyngitis, unspecified (principal); H92.02 Otalgia, left ear; D84.9 Immunodeficiency, unspecified; I10 Essential (primary) hypertension; J44.9 Chronic obstructive pulmonary disease, unspecified; E11.9 Type 2 diabetes mellitus without complications
CPT/HCPCS: 99283

== ENCOUNTER → 2019-08-01 07:33 | Outpatient (BNVA) | payer MEDICARE, SELFPAY | PROVIDERS: PCP Family Medicine; Referring Provider Family Medicine; Visit Provider Urology | DX: R69 Illness, unspecified (principal) | CPT/HCPCS: 81002; 99214 ==

== ENCOUNTER 2019-08-01 08:41 | Outpatient (CLI) | payer MEDICARE, SELFPAY | END 2019-08-01 09:01 | PROVIDERS: PCP Family Medicine; Visit Provider Urology | DX: N40.1 Benign prostatic hyperplasia with lower urinary tract symptoms (principal); N13.9 Obstructive and reflux uropathy, unspecified | CPT/HCPCS: 36415; 81002; 81003; 99214; 84153 ==

== ENCOUNTER 2019-08-02 00:42 | Outpatient (CLI) | payer MEDICARE, SELFPAY ==
--- NOTE | 2019-08-02 12:30 | DI.US_ITS ---
EXAM: US RENAL CLINICAL HISTORY: r/o stones, hydro Z87.442, personal h/o renal calculi TECHNIQUE: Ultrasound performed using standard protocol. COMPARISON: RENAL COLIC WO CONTRAST from 01/08/2015 RENAL COLIC WO CONTRAST from 07/15/2015 CT CHEST PE CTA from 05/25/2019 FINDINGS: The prevoid bladder volume measures 56 cc. There is a 14 cc postvoid residual. No bladder calcifica tion or bladder mass is visible although the bladder is not optimally distended. Both ureteral jets were visualized. The prostate volume is calculated at 12 cc. The right kidney measures 10.9 cm in l ength and shows normal parenchymal thickness and echogenicity. No stones, or hydronephrosis or jj s are identified. The left kidney measures 11.4 cm in length. No hydronephrosis, stone or mass is s een. IMPRESSION: Renal ultrasound is within normal limits. No hydronephrosis or stones are identified.
== END 2019-08-02 01:02 ==
PROVIDERS: PCP Family Medicine; Visit Provider Urology
DX: Z87.442 Personal history of urinary calculi (principal); R39.198 Other difficulties with micturition
CPT/HCPCS: 76770

== ENCOUNTER → 2019-08-04 07:34 | Outpatient (BNVA) | payer MEDICARE, SELFPAY | PROVIDERS: PCP Family Medicine; Referring Provider Family Medicine; Visit Provider Urology | DX: N40.1 Benign prostatic hyperplasia with lower urinary tract symptoms (principal); R10.9 Unspecified abdominal pain; R14.0 Abdominal distension (gaseous); Z87.442 Personal history of urinary calculi | CPT/HCPCS: 99213 ==

== ENCOUNTER 2019-08-09 11:37 | Outpatient (RCR) | payer MEDICARE, SELFPAY | END 2019-08-12 23:59 | disposition home or self-care (01) | LOC: CR 11:37 | PROVIDERS: PCP Family Medicine; Visit Provider Family Medicine | DX: I25.2 Old myocardial infarction (principal); Z95.5 Presence of coronary angioplasty implant and graft; Z51.89 Encounter for other specified aftercare | CPT/HCPCS: S9472 ==

== ENCOUNTER 2019-08-16 14:09 | Outpatient (CLI) | payer MEDICARE, SELFPAY ==
[2019-08-16 16:18] LABS: Hemoglobin A1C 10.6 % (4.5-6.2)
== END 2019-08-16 14:29 ==
PROVIDERS: PCP Family Medicine; Visit Provider Family Medicine
DX: E11.9 Type 2 diabetes mellitus without complications (principal)
CPT/HCPCS: 36415; 83036

== ENCOUNTER 2019-08-31 01:23 | Outpatient (CLI) | payer MEDICARE, SELFPAY ==
--- NOTE | 2019-08-31 10:00 | NS.NUTBLAN_ITS ---
DESCRIPTION: Bobby Cooley presents for medical nutrition therapy for diabetes. A1c 10.6 Mr. Cooley had a heart attack last summer which he associates with his diabetes although first diagnosed 2012 per problem list. NUTRITION: Nibbles on fruit or cookie as a morning snack; has occasional sandwich at noon from [employer] ; has supper of baked beans with hamburg and bun or can soup. Snacks on chips or sandwich in evening; pepsi or gingerale 4-5 times a week. Denies using salt or sugar. Has limited finances for food; difficulty chewing some foods. Does get commodity food however it consists of cereal, canned potato, spaghetti, juice and cheese all of which he cannot or should not eat, he acknowledges. States he has gained about 8 pounds with BMI 31. PHYSICAL ACTIVITY: Does some walking limited by breathing difficulties and arthritis; has infusion every 4 months. He attends cardiac rehab 3 days a week. MEDICATION/MONITORING: Has started Lantus 15u last week. Monitors every morning for past 2 weeks 200-365mg/dl. STRESS: Denies stress and depression but admits to being easily discouraged. His son tinkers in his shop with him occasionally. His heart attack has altered his life; he did quit smoking 3 months ago. Sleeps but is up 3-4 times in the night to urinate. INTERVENTION: NUTRITION: Reviewed diabetes food guide focused on protein and ways to increase vegetables and substitute out sweets including sugared beverages and highly processed grains. Given food resources including [employer] PHYSICAL ACTIVITY: Discussed 'homework' from cardiac rehab with walking in place indoors for short periods; chair strengthening exercises. MEDICATION/MONITORING: Discussed monitoring blood sugars occasionally before bed to see how blood sugars change throughout the day. Suggested he consult with his PCP regarding increasing his basal insulin dosing. Did discuss oral medication that is also cardioprotective in [id number]; explained common side effects. STRESS: Explained impact of all stress on blood sugars. Mr. Cooley is engaged in the conversation but is unclear if he can make any food changes at this time. PLAN: Lawrence will: call his PCP with fasting blood sugars add at least 1 can of (drained and rinsed) vegetables daily; limit cereal in evening test blood sugars before bed occasionally to assess night blood sugar changes We will be in touch by telephone or he will stop by after Cardiac Rehab as follow up. Face to face 40 minutes of which 35 minutes was MEDICAL NUTRITION THERAPY. No group diabetes education available at this time.
== END 2019-08-31 01:43 ==
PROVIDERS: PCP Family Medicine; Visit Provider Dietitian, Registered
DX: E11.9 Type 2 diabetes mellitus without complications (principal); Z79.4 Long term (current) use of insulin; Z71.3 Dietary counseling and surveillance
CPT/HCPCS: 97802

== ENCOUNTER 2019-09-11 10:46 | Outpatient (RCR) | payer MEDICARE, SELFPAY | END 2019-09-12 23:59 | disposition home or self-care (01) | LOC: CR 10:46 | PROVIDERS: PCP Family Medicine; Visit Provider Family Medicine | DX: I25.2 Old myocardial infarction (principal); Z95.5 Presence of coronary angioplasty implant and graft; Z51.89 Encounter for other specified aftercare | CPT/HCPCS: S9472 ==

== ENCOUNTER 2019-09-18 11:56 | Outpatient (RCR) | payer MEDICARE, SELFPAY ==
--- NOTE | 2019-09-25 12:15 | PR3E_ITS ---
74 year old male who started the Cardiac Rehab maintenance phase after completing the Phase 2 program for NSTEMI s/p PCI in May 2019. PMH: HTN, HLD, CAD, tobacco abuse, stroke, ETOH abuse, COPD, rheumatoid arthritis First day of maintenance program was 09/19/19- Resting BP 120/71, HR 44 bpm. Tolerated 40 minutes of exercise on the treadmill, NuStep, bike and UBE. HR w/ exercise ranged 73-95bpm. LATOYA RPE ratings appropriate at 10-11 per activity. Mr. Cooley plans to continue exercising regularly with our program, two days per week at 9am. We will continue to monitor, guide, and progress him as tolerated.
== END 2019-09-27 12:56 | disposition other institution (70) ==
LOC: CR 11:56
PROVIDERS: PCP Family Medicine; Visit Provider Family Medicine
DX: I25.2 Old myocardial infarction (principal); Z95.5 Presence of coronary angioplasty implant and graft; Z51.89 Encounter for other specified aftercare
CPT/HCPCS: S9472

== ENCOUNTER 2019-10-09 10:54 | Emergency (ER) | payer MEDICARE, SELFPAY ==
[2019-10-09 11:04] VITALS: BP 90/59; PULSE 83; TEMP 36.4; O2SAT 92
--- NOTE | 2019-10-09 11:12 | W.ED.GENAD ---
Discharge Plan Disposition Patient Disposition: HOME Condition: Stable Discharge Details Chief Complaint: RashLesion Clinical Impression: Abscess Primary Care Provider: Mike Burns ED Provider: Alberta Whaley Home Meds and New Rx's Prescriptions: New mupirocin 2 % ointment 1 applic TP BID Qty: 15 RF: 0 Continued nicotine (polacrilex) [Nicorette] 4 mg lozenge 4 mg MM Q4H PRN (Reason: nicotine cravings) Qty: 72 RF: 2 clopidogrel [Plavix] 75 mg tablet 75 mg PO DAILY Qty: 90 RF: 4 losartan 100 mg tablet 100 mg PO DAILY Qty: 90 RF: 3 (DME) Advocate Pen Needle 33 gauge x 5/32 needle See Rx Instructions .ROUTE .MEDSUPPLY Qty: 100 RF: 3 amlodipine 10 mg tablet 10 mg PO HS RF: 0 atorvastatin 80 mg tablet 80 mg PO QHS RF: 0 spironolactone 25 mg tablet 25 mg PO DAILY RF: 0 nitroglycerin [Nitrostat] 0.4 mg tablet, sublingual 0.4 mg Sublingual PRN Qty: 25 RF: 11 ezetimibe 10 mg tablet 10 mg PO DAILY Qty: 30 RF: 11 fluticasone propionate 50 mcg/actuation spray,suspension 2 spray NS DAILY Qty: 1 RF: 5 insulin glargine 100 unit/mL (3 mL) insulin pen 30 - 50 unit SC HS Qty: 45 RF: 3 budesonide 0.5 mg/2 mL suspension for nebulization 0.5 mg Inhalation BID Qty: 60 RF: 11 pantoprazole 40 mg tablet,delayed release (DR/EC) 40 mg PO DAILY Qty: 90 RF: 3 (DME) Space Chamber Plus 1 EACH spacer 1 ea Miscellaneous PRN Qty: 1 RF: 0 Remicade 100 MG recon soln 1,000 mg IV .[id number] RF: 0 aspirin 81 MG tablet,chewable 81 mg PO DAILY RF: 0 albuterol sulfate [Proventil HFA] 90 mcg/actuation HFA aerosol inhaler 2 puff IH Q6H PRN (Reason: shortness of breath or wheezing) Qty: 6.7 RF: 5 Jardiance 25 mg tablet 25 mg PO QAM Qty: 30 RF: 11 (DME) FreeStyle Test Strip 1 strip Miscellaneous DAILY Qty: 200 RF: 4 (DME) lancets [FreeStyle Lancets] 28 gauge misc 1 ea Intradermal DAILY Qty: 200 RF: 4 acetaminophen 650 MG tablet extended release 650 mg PO Q8H PRN (Reason: Pain) Qty: 20 RF: 0 tamsulosin 0.4 mg Capsule 0.4 mg PO DAILY RF: 0 albuterol sulfate [Ventolin HFA] 90 mcg/actuation Hfa Aerosol Inhaler 90 mcg INHALATION RF: 0 Discharge Instructions Instructions: Abscess (ED) Additional Instructions: Keep wound clean and dry. Wash the area with soap and water daily. Apply the Bactroban ointment twice daily. Cover wound with bandage if risk of contamination. Follow-up with your primary care doctor in 1 week. Return to the emergency department with any worsening or new concerning symptoms. Discharge Data Discharge Physician: Alberta Whaley Medical Decision Making 74-year-old male presents for painful lump to his posterior neck since yesterday morning. There is a 1 cm pustule with surrounding induration noted on right posterior neck. There is no obvious fluctuance. Patient appears nontoxic. Area was cleaned with Betadine. There was a small puncture made with 18-gauge needle and 2 cc of purulent discharge drained. The area was expressed until blood returned. Area was irrigated and cleaned and covered with bacitracin and dressing. Patient advised to keep area clean and dry. We will send with a prescription for Bactroban. Advised to follow-up with the primary care doctor for evaluation and to return here at any time if worse. HPI General Mode of arrival: ambulatory. Date/Time Provider Initiated Documentation: 10/09/19 11:08. Limitations to Documentation: no limitations. Information obtained by: patient. History of Present Illness 74 year old M presents to the emergency department with the chief complaint of Painful lump to back of neck, and is localized to the neck. Patient started experiencing this day(s) (1) and it has been constant. No relieving factors improve symptom(s), Other factors that worsen symptoms (Palpation) . Patient notes denies fever/chills and headaches. Patient did receive the following treatments prior to arrival, none Related Data Home Medications Medication Instructions Recorded Confirmed Space Chamber Plus #1 05/27/15 10/04/19 Remicade 1,000 mg IV .[id number] vial 05/31/15 10/04/19 acetaminophen 650 mg PO Q8H PRN #20 tablet.er 04/30/17 10/09/19 aspirin 81 mg PO DAILY tab-cap 05/13/18 10/09/19 fluticasone propionate 50 2 spray NS DAILY #1 gm 11/15/18 10/04/19 mcg/actuation nasal spray,suspension clopidogrel 75 mg tablet 75 mg PO DAILY #90 tab 02/21/19 10/09/19 losartan 100 mg tablet 100 mg PO DAILY #90 tab-cap 02/21/19 10/09/19 nicotine (polacrilex) 4 mg buccal 4 mg MM Q4H PRN #72 each 02/21/19 10/04/19 lozenge tamsulosin 0.4 mg PO DAILY 05/25/19 10/09/19 amlodipine 10 mg tablet 10 mg PO HS tab 06/02/19 10/09/19 atorvastatin 80 mg tablet 80 mg PO QHS 06/02/19 10/09/19 nitroglycerin 0.4 mg sublingual 0.4 mg SUBLINGUAL PRN #25 tab-cap 06/02/19 10/09/19 tablet spironolactone 25 mg tablet 25 mg PO DAILY 06/02/19 10/09/19 ezetimibe 10 mg tablet 10 mg PO DAILY #30 tab 06/29/19 10/09/19 albuterol sulfate 90 mcg/actuation 2 puff IH Q6H PRN #6.7 gm 08/04/19 10/04/19 aerosol inhaler pen needle, diabetic 33 gauge x #100 each 08/18/19 10/04/19 5/32 empagliflozin 25 mg tablet 25 mg PO QAM #30 tab 08/23/19 10/09/19 blood sugar diagnostic #200 strip 09/21/19 10/04/19 lancets 28 gauge #200 each 09/21/19 10/04/19 budesonide 0.5 mg/2 mL suspension 0.5 mg INHALATION BID #60 amp 10/04/19 10/09/19 for nebulization insulin glargine 100 unit/mL (3 30 - 50 unit SC HS #45 ml 10/04/19 10/09/19 mL) subcutaneous pen pantoprazole 40 mg tablet,delayed 40 mg PO DAILY #90 tab 10/04/19 10/09/19 release albuterol sulfate [Ventolin HFA] 90 mcg INHALATION 10/09/19 mupirocin 1 applic TP BID #15 gm 10/09/19 Previous Rx's Medication Instructions Recorded acetaminophen 650 mg PO Q8H PRN #20 tablet.er 04/30/17 fluticasone propionate 50 2 spray NS DAILY #1 gm 11/15/18 mcg/actuation nasal spray,suspension clopidogrel 75 mg tablet 75 mg PO DAILY #90 tab 02/21/19 losartan 100 mg tablet 100 mg PO DAILY #90 tab-cap 02/21/19 nicotine (polacrilex) 4 mg buccal 4 mg MM Q4H PRN #72 each 02/21/19 lozenge nitroglycerin 0.4 mg sublingual 0.4 mg SUBLINGUAL PRN #25 tab-cap 06/02/19 tablet ezetimibe 10 mg tablet 10 mg PO DAILY #30 tab 06/29/19 albuterol sulfate 90 mcg/actuation 2 puff IH Q6H PRN #6.7 gm 08/04/19 aerosol inhaler pen needle, diabetic 33 gauge x #100 each 08/18/19/32 empagliflozin 25 mg tablet 25 mg PO QAM #30 tab 08/23/19 blood sugar diagnostic #200 strip 09/21/19 lancets 28 gauge #200 each 09/21/19 budesonide 0.5 mg/2 mL suspension 0.5 mg INHALATION BID #60 amp 10/04/19 for nebulization insulin glargine 100 unit/mL (3 30 - 50 unit SC HS #45 ml 10/04/19 mL) subcutaneous pen pantoprazole 40 mg tablet,delayed 40 mg PO DAILY #90 tab 10/04/19 release mupirocin 1 applic TP BID #15 gm 10/09/19 Allergies Allergy/AdvReac Type Severity Reaction Status Date / Time venom-honey bee Allergy Severe ANAPHYLAXSI Verified 10/09/19 11:21 [bee venom (honey bee)] S Sulfa (Sulfonamide Allergy Unknown unknown Verified 10/09/19 11:21 Antibiotics) leflunomide [From Arava] AdvReac Intermediate DIARRHEA Verified 10/09/19 11:21 metformin AdvReac Intermediate diarrhea Verified 10/09/19 11:21 General Stated Complaint: GenMedical STAR: 3 Review of Systems All systems reviewed & are unremarkable except as noted in HPI and below Constitutional Constitutional: Reports as per HPI, Denies chills and Denies fever(s) Eyes Eyes: Denies blurry vision ENT Ears, Nose, Mouth, and Throat: Denies dizziness, Denies sore throat and Denies throat swelling Cardiovascular Cardiovascular: Denies chest pain and Denies dyspnea Respiratory Respiratory: Denies cough and Denies dyspnea Gastrointestinal Gastrointestinal: Denies abdominal pain, Denies diarrhea and Denies vomiting Genitourinary Genitourinary: Denies hematuria and Denies dysuria Musculoskeletal Musculoskeletal: Denies back pain and Denies numbness Integumentary/Breasts Skin/Breast: Denies lesions and Denies rash Neurologic Neurologic: Denies dizziness, Denies focal weakness and Denies numbness Allergic/Immunologic Allergic/Immunologic: Denies throat swelling [facility] Medical History ASCVD (arteriosclerotic cardiovascular disease) (Chronic 05/05/13) 2 NEW STENTS 04/22 H/O IMI; angioplasty and stent; [place] , 02/11; CVA/TIA BPH loc w urin obs/LUTS (Acute) Chronic obstructive lung disease (Chronic) pulmonary fibrosis on chest xray ongoing tobacco use add back budesonide nebs to see if we can improve cough CVA (cerebral vascular accident) (Resolved 11/21/17) Depressive disorder (Chronic) Diabetes mellitus (Chronic 05/05/13) check A1c and creat Flank pain (Acute) Gastroesophageal reflux disease (Chronic) Hyperlipidemia (Chronic 05/05/13) Hypertension (Chronic) same meds, good BP here today RCA occlusion (Acute) 05/25/19 [facility] [place] Rheumatoid arthritis (Chronic 05/05/13) [facility] [place], Dr Leon Surgical History Colonoscopy - MAC (05/16/13) Colonoscopy - MAC (11/13/16) Colostomy (~2006) TEMP W/ REVISION Excision, Lipoma (05/19/16) posterior neck Hernia Repair, Incisional KNEE REPAIR RIGHT RESECTION ANGIOFIBROMA;RIGHT FOOT 02/04/18 Stented coronary artery (Acute) 05/25/19 [facility] [place]; s/p stent of old stent-KB Family History Mother Essential hypertension Heart disease Stroke Father Stroke Brother Heart disease Family History Diabetes Heart disease Cancer Brother No problems noted. Brother No problems noted. Sister No problems noted. Sister Alcohol abuse Social History Smoking/Tobacco Use Status: Former Tobacco Use Quit Date: 05/25/19 Tobacco: How many years used: 60 Quit status: has quit before Second Hand Exposure: Yes Alcohol Intake: former Drug use: Never Substance use type: does not use Caregiver/Support person: No Household members: none Housing: house Communication Needs: Hard of Hearing Do you need help understanding health information?: Rarely Pets and animals: No Sexually active: No Current gender identity: male What is your relationship status?: How often do you talk on the phone with friends or family?: decline to answer How often do you get together with friends or relatives?: decline to answer How often do you attend quaker or jewish services?: decline to answer Do you belong to any clubs or organized social groups?: decline to answer Panel score (0-1 are the most socially isolated patients): 0 What type of physical activity do you participate in: decline to answer Duration: decline to answer Frequency: decline to answer Monika/Mosque: None Special monika needs: No Seatbelt use: sometimes Helmet use: No Drive intox or ride w/intox over the road driver: No Do you feel safe at home: Yes Do you feel safe in your relationship?: Yes Additional Social history: twice; lives alone in [facility]; has 4 grown children;3 daughters, 1 son Exam Const General: cooperative, healthy appearing and no acute distress HENMT Head: normal to inspection Mouth: oral mucosae normal Eyes General: appearance normal, both eyes and all related structures Neck Neck images: 1. 1 x 1 cm pustule with a 2 cm area of induration on right side of mid posterior neck. There is minimal surrounding erythema. There is no noted fluctuance. Resp Effort & Inspection: normal respiratory effort and able to speak in complete sentences Cardio Rate: regular rate Neuro General: alert, awake and oriented x3 Motor: muscle tone normal throughout Extrem General: normal to inspection and full ROM Psych Appearance: grossly normal Affect: normal affect Course Vital Signs Vital signs: Vital Signs Temperature 97.5 F L 10/09/19 11:04 Pulse 83 10/09/19 11:04 Blood Pressure 90/59 L 10/09/19 11:04 Pulse Oximetry 92 L 10/09/19 11:04 Temperature 97.5 F L 10/09/19 11:04 Pulse 83 10/09/19 11:04 Respiratory Effort Non-Labored 10/09/19 11:07 Blood Pressure 90/59 L 10/09/19 11:04 Pulse Oximetry 92 L 10/09/19 11:04 Oxygen Delivery Method Room Air 10/09/19 11:04 Oxygen Flow Rate 0 10/09/19 11:04 Pain Level 7 10/09/19 11:04
[2019-10-09 11:30] VITALS: BP 110/65; PULSE 65; RESP 18; TEMP 36.7; O2SAT 94
[2019-10-09 11:52] VITALS: BP 110/60; PULSE 68; RESP 18; O2SAT 93
[2019-10-09 11:53] VITALS: BP 110/60; PULSE 64; RESP 18; O2SAT 93
== END 2019-10-09 11:52 | disposition home or self-care (01) ==
PROVIDERS: Emergency Provider Physician Assistant; PCP Family Medicine
DX: R21 Rash and other nonspecific skin eruption (principal); L02.11 Cutaneous abscess of neck; I10 Essential (primary) hypertension; E11.9 Type 2 diabetes mellitus without complications; Z79.4 Long term (current) use of insulin
CPT/HCPCS: 10160

== ENCOUNTER 2019-10-12 08:00 | Outpatient (RCR) | payer SELFPAY | END 2019-10-13 23:59 | disposition home or self-care (01) | LOC: CR 08:00 | PROVIDERS: PCP Family Medicine; Visit Provider Family Medicine | DX: I25.2 Old myocardial infarction (principal); Z95.5 Presence of coronary angioplasty implant and graft; Z51.89 Encounter for other specified aftercare ==

== ENCOUNTER 2019-10-12 11:53 | Inpatient (IN) | payer MEDICARE, SELFPAY ==
[2019-10-12 11:55] VITALS: BP 127/72; PULSE 62; RESP 18; TEMP 36.4; O2SAT 94
--- NOTE | 2019-10-12 12:25 | ED.GENADUL_ITS ---
Discharge Plan Disposition Patient Disposition: [facility] INPATIENT Condition: Serious Discharge Details Chief Complaint: Cellulitis Clinical Impression: Abscess of neck, Acute hyperglycemia Primary Care Provider: Mike Bruns ED Provider: Adan Russell Home Meds and New Rx's Prescriptions: No Action nicotine (polacrilex) [Nicorette] 4 mg lozenge 4 mg MM Q4H PRN (Reason: nicotine cravings) Qty: 72 RF: 2 clopidogrel [Plavix] 75 mg tablet 75 mg PO DAILY Qty: 90 RF: 4 losartan 100 mg tablet 100 mg PO DAILY Qty: 90 RF: 3 (DME) Advocate Pen Needle 33 gauge x 5/32 needle See Rx Instructions .ROUTE .MEDSUPPLY Qty: 100 RF: 3 amlodipine 10 mg tablet 10 mg PO HS RF: 0 atorvastatin 80 mg tablet 80 mg PO QHS RF: 0 spironolactone 25 mg tablet 25 mg PO DAILY RF: 0 nitroglycerin [Nitrostat] 0.4 mg tablet, sublingual 0.4 mg Sublingual PRN Qty: 25 RF: 11 ezetimibe 10 mg tablet 10 mg PO DAILY Qty: 30 RF: 11 fluticasone propionate 50 mcg/actuation spray,suspension 2 spray NS DAILY Qty: 1 RF: 5 insulin glargine 100 unit/mL (3 mL) insulin pen 30 - 50 unit SC HS Qty: 45 RF: 3 budesonide 0.5 mg/2 mL suspension for nebulization 0.5 mg Inhalation BID Qty: 60 RF: 11 pantoprazole 40 mg tablet,delayed release (DR/EC) 40 mg PO DAILY Qty: 90 RF: 3 (DME) Space Chamber Plus 1 EACH spacer 1 ea Miscellaneous PRN Qty: 1 RF: 0 Remicade 100 MG recon soln 1,000 mg IV .[id number] RF: 0 aspirin 81 MG tablet,chewable 81 mg PO DAILY RF: 0 albuterol sulfate [Proventil HFA] 90 mcg/actuation HFA aerosol inhaler 2 puff IH Q6H PRN (Reason: shortness of breath or wheezing) Qty: 6.7 RF: 5 Jardiance 25 mg tablet 25 mg PO QAM Qty: 30 RF: 11 (DME) FreeStyle Test Strip 1 strip Miscellaneous DAILY Qty: 200 RF: 4 (DME) lancets [FreeStyle Lancets] 28 gauge misc 1 ea Intradermal DAILY Qty: 200 RF: 4 mupirocin 2 % ointment 1 applic TP BID Qty: 15 RF: 0 acetaminophen 650 MG tablet extended release 650 mg PO Q8H PRN (Reason: Pain) Qty: 20 RF: 0 tamsulosin 0.4 mg Capsule 0.4 mg PO DAILY RF: 0 albuterol sulfate [Ventolin HFA] 90 mcg/actuation Hfa Aerosol Inhaler 90 mcg INHALATION RF: 0 Discharge Instructions Instructions: Abscess (ED) Additional Instructions: Please take full course of antibiotics as prescribed. Monitor your blood sugar closely and maintain a healthy low carbohydrate diet. Please contact your primary care physician to arrange follow-up. Return to the ER for any worsening or new concerning symptoms. Referrals: Mike Burns [Primary Care Provider] - Medical Decision Making 74-year-old male with insulin-dependent diabetes here with abscess posterior neck that is recurrent despite needle aspiration performed 4 days ago. Currently afebrile but has had subjective fevers. Abscess was anesthetized with topical let and incised and drained. Bacterial cultures were sent. [id number] glucose 330. Given persistent abscess and uncontrolled diabetes, plan for inpatient admission for optimization of diabetic hyperglycemia and initial IV antibiotics. Patient was initially given a dose of Keflex. I will add a dose of vancomycin 1500 mg IV for broader coverage for possible MRSA. Culture pending. --I called and spoke with Dr. Delgado who will accept the patient for admission. Labs pending at time of admission. HPI General Mode of arrival: ambulatory . Date/Time Provider Initiated Documentation: 10/12/19 12:01 . Limitations to Documentation: no limitations . Information obtained by: patient . HPI Narrative: 74-year-old male with history of insulin-dependent diabetes presents with chief complaint of painful lump, posterior neck. Pain is moderate. Worse on palpation. He has has subj associated fever. Patient was treated in the ED for this lump on 10/09. He notes needle drainage was performed. He has been applying warm compresses and symptoms persist. Patient does note that blood sugar has been elevated 200s-300s. Related Data Home Medications Medication Instructions Recorded Confirmed Space Chamber Plus #1 05/27/15 10/04/19 Remicade 1,000 mg IV .[id number] vial 05/31/15 10/12/19 acetaminophen 650 mg PO Q8H PRN #20 tablet.er 04/30/17 10/12/19 aspirin 81 mg PO DAILY tab-cap 05/13/18 10/12/19 fluticasone propionate 50 2 spray NS DAILY #1 gm 11/15/18 10/12/19 mcg/actuation nasal spray,suspension clopidogrel 75 mg tablet 75 mg PO DAILY #90 tab 02/21/19 10/12/19 losartan 100 mg tablet 100 mg PO DAILY #90 tab-cap 02/21/19 10/12/19 nicotine (polacrilex) 4 mg buccal 4 mg MM Q4H PRN #72 each 02/21/19 10/12/19 lozenge tamsulosin 0.4 mg PO DAILY 05/25/19 10/12/19 amlodipine 10 mg tablet 10 mg PO HS tab 06/02/19 10/12/19 atorvastatin 80 mg tablet 80 mg PO QHS 06/02/19 10/12/19 nitroglycerin 0.4 mg sublingual 0.4 mg SUBLINGUAL PRN #25 tab-cap 06/02/19 10/12/19 tablet spironolactone 25 mg tablet 25 mg PO DAILY 06/02/19 10/12/19 ezetimibe 10 mg tablet 10 mg PO DAILY #30 tab 06/29/19 10/12/19 albuterol sulfate 90 mcg/actuation 2 puff IH Q6H PRN #6.7 gm 08/04/19 10/12/19 aerosol inhaler pen needle, diabetic 33 gauge x #100 each 08/18/19 10/04/19 5/32 empagliflozin 25 mg tablet 25 mg PO QAM #30 tab 08/23/19 10/12/19 blood sugar diagnostic #200 strip 09/21/19 10/04/19 lancets 28 gauge #200 each 09/21/19 10/04/19 budesonide 0.5 mg/2 mL suspension 0.5 mg INHALATION BID #60 amp 10/04/19 10/12/19 for nebulization insulin glargine 100 unit/mL (3 30 - 50 unit SC HS #45 ml 10/04/19 10/12/19 mL) subcutaneous pen pantoprazole 40 mg tablet,delayed 40 mg PO DAILY #90 tab 10/04/19 10/12/19 release albuterol sulfate [Ventolin HFA] 90 mcg INHALATION 10/09/19 mupirocin 2 % topical ointment 1 applic TP BID #15 gm 10/09/19 10/12/19 Previous Rx's Medication Instructions Recorded acetaminophen 650 mg PO Q8H PRN #20 tablet.er 04/30/17 fluticasone propionate 50 2 spray NS DAILY #1 gm 11/15/18 mcg/actuation nasal spray,suspension clopidogrel 75 mg tablet 75 mg PO DAILY #90 tab 02/21/19 losartan 100 mg tablet 100 mg PO DAILY #90 tab-cap 02/21/19 nicotine (polacrilex) 4 mg buccal 4 mg MM Q4H PRN #72 each 02/21/19 lozenge nitroglycerin 0.4 mg sublingual 0.4 mg SUBLINGUAL PRN #25 tab-cap 06/02/19 tablet ezetimibe 10 mg tablet 10 mg PO DAILY #30 tab 06/29/19 albuterol sulfate 90 mcg/actuation 2 puff IH Q6H PRN #6.7 gm 08/04/19 aerosol inhaler pen needle, diabetic 33 gauge x #100 each 08/18/19/32 empagliflozin 25 mg tablet 25 mg PO QAM #30 tab 08/23/19 blood sugar diagnostic #200 strip 09/21/19 lancets 28 gauge #200 each 09/21/19 budesonide 0.5 mg/2 mL suspension 0.5 mg INHALATION BID #60 amp 10/04/19 for nebulization insulin glargine 100 unit/mL (3 30 - 50 unit SC HS #45 ml 10/04/19 mL) subcutaneous pen pantoprazole 40 mg tablet,delayed 40 mg PO DAILY #90 tab 10/04/19 release mupirocin 2 % topical ointment 1 applic TP BID #15 gm 10/09/19 Allergies Allergy/AdvReac Type Severity Reaction Status Date / Time venom-honey bee Allergy Severe ANAPHYLAXSI Verified 10/12/19 12:00 [bee venom (honey bee)] S Sulfa (Sulfonamide Allergy Unknown unknown Verified 10/12/19 12:00 Antibiotics) leflunomide [From Arava] AdvReac Intermediate DIARRHEA Verified 10/12/19 12:00 metformin AdvReac Intermediate diarrhea Verified 10/12/19 12:00 General Stated Complaint: Cellulitis STAR: 3 Review of Systems Constitutional Constitutional: Denies fever(s) Integumentary/Breasts Skin/Breast: Reports as per HPI [facility] Medical History ASCVD (arteriosclerotic cardiovascular disease) (Chronic 05/05/13) 2 NEW STENTS 04/22 H/O IMI; angioplasty and stent; [place] , 02/11; CVA/TIA BPH loc w urin obs/LUTS (Acute) Chronic obstructive lung disease (Chronic) pulmonary fibrosis on chest xray ongoing tobacco use add back budesonide nebs to see if we can improve cough CVA (cerebral vascular accident) (Resolved 11/21/17) Depressive disorder (Chronic) Diabetes mellitus (Chronic 05/05/13) check A1c and creat Flank pain (Acute) Gastroesophageal reflux disease (Chronic) Hyperlipidemia (Chronic 05/05/13) Hypertension (Chronic) same meds, good BP here today RCA occlusion (Acute) [place] [facility] [place] (Chronic 05/05/13[place] [facility] [place] Surgical History Colonoscopy - MAC (05/16/13) Colonoscopy - MAC (11/13/16) Colostomy (~2006) TEMP W/ REVISION Excision, Lipoma (05/19/16) posterior neck Hernia Repair, Incisional KNEE REPAIR RIGHT RESECTION ANGIOFIBROMA;RIGHT FOOT 02/04/18 Stented coronary artery (Acute) [place]25/[place] [facility] [place] of old stent-KB Family History Mother Essential hypertension Heart disease Stroke Father Stroke Brother Heart disease Family History Diabetes Heart disease Cancer Brother No problems noted. Brother No problems noted. Sister No problems noted. Sister Alcohol abuse Social History Smoking/Tobacco Use Status: Former Tobacco Use Quit Date: 05/25/19 Tobacco: How many years used: 60 Quit status: has quit before Second Hand Exposure: Yes Alcohol Intake: former Drug use: Never Substance use type: does not use Caregiver/Support person: No Household members: none Housing: house Communication Needs: Hard of Hearing Do you need help understanding health information?: Rarely Pets and animals: No Sexually active: No Current gender identity: male What is your relationship status?: How often do you talk on the phone with friends or family?: decline to answer How often do you get together with friends or relatives?: decline to answer How often do you attend orthodox or synagogue services?: decline to answer Do you belong to any clubs or organized social groups?: decline to answer Panel score (0-1 are the most socially isolated patients): 0 What type of physical activity do you participate in: decline to answer Duration: decline to answer Frequency: decline to answer Monika/Shinto: None Special monika needs: No Seatbelt use: sometimes Helmet use: No Drive intox or ride w/intox 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 Do you feel safe at home: Yes Do you feel safe in your relationship?: Yes Additional Social history: twice; lives alone in [facility]; has 4 grown children;3 daughters, 1 son Exam Const General: cooperative and no acute distress HENMT Mouth: moist mucous membranes Neck Neck: full ROM, trachea midline and supple Skin Other: Single 1 cm tense pustule posterior neck with induration surrounding Course Vital Signs Vital signs: Vital Signs Temperature 36.4 C L 10/12/19 11:55 Pulse 62 10/12/19 11:55 Respiratory Rate 18 10/12/19 11:55 Blood Pressure 127/72 10/12/19 11:55 Pulse Oximetry 94 L 10/12/19 11:55 Temperature 36.4 C L 10/12/19 11:55 Temperature Source Skin 10/12/19 11:55 Pulse 62 10/12/19 11:55 Respiratory Rate 18 10/12/19 11:55 Respiratory Effort 10/12/19 12:00 Blood Pressure 127/72 10/12/19 11:55 Blood Pressure Position Sitting 10/12/19 11:55 Pulse Oximetry 94 L 10/12/19 11:55 Oxygen Delivery Method Room Air 10/12/19 11:55 Oxygen Flow Rate 0 10/12/19 11:55 Pain Level 8 10/12/19 11:55 Comment 10/12/19 11:55
[2019-10-12] MEDS: Cephalexin 500 MG CAP PO (12:59)
[2019-10-12] MEDS: Lidocaine/Epinephri/Tetracaine Topical Gel 3 ML TP (13:00)
[2019-10-12 14:03] LABS: Abs Immature Grans 0.02 k/cumm (0.0-0.09); Absolute Basophil Count 0.05 k/cumm (0.0-0.2); Absolute Eosinophil Count 0.63 k/cumm (0.0-0.7); Absolute Lymphocyte Count 1.93 k/cumm (1.2-3.4); Absolute Monocyte Count 0.75 k/cumm (0.11-0.7); Absolute Neutrophil Count 4.69 k/cumm (1.2-6.7); Basophils % 0.6; Eosinophils % 7.8; HCT 44.8 % (40.0-50.0); HGB 15.2 g/dL (13.5-17.5); Immature Grans % 0.2 %; Lymphocytes % 23.9; Mean Corp. HGB Concentration 33.9 g/dL (32.0-36.0); Mean Corpuscular Volume 91.2 fL (80-95); Mean Platelet Volume 11.9 fL (8.0-11.0); Monocytes % 9.3; Neutrophils % 58.2; Platelet Count 198 x1000/uL (130-400); RBC 4.91 m/cumm (4.50-6.00); RBC Distribution Width 12.8 % (11.8-14.1); White Blood Cell Count 8.07 k/cumm (4.4-10.8)
--- NOTE | 2019-10-12 14:11 | W.PM.HP.N ---
Date of service: 10/12/19 Time of Service: 14:11 Assessment and Plan Assessment and plan (1) Abscess of neck: Status: Acute Assessment and plan: I& D x 2 in ED, culture is pending. no fevers or elevated white count. received keflex and vanco, will continue vanco and ceftriaxone day 09/19-10 depending on response. (2) Diabetes mellitus: Status: Chronic Assessment and plan: elevated blood sugars, likely d/t acute infection, will add A1C today, he was 10.6 in august. diabetic diet, sliding scale coverage as needed. will give 30 units of lantus and follow closely, adjust as needed. consult community nutrition educator Qualifiers: Diabetes mellitus complication status: without complication Diabetes mellitus middle or intermediate school principal insulin use: without middle or intermediate school principal use Diabetes mellitus type: type 2 Qualified Code(s): E11.9 - Type 2 diabetes mellitus without complications (3) Chronic obstructive lung disease: Status: Chronic Assessment and plan: stable, will continue home medications and monitor (4) Essential hypertension: Status: Acute Assessment and plan: monitor blood pressures, will continue home medications and adjust as needed. (5) Smoker: Status: Acute Assessment and plan: nicotine patch if needed while hospitalized. smoking cessation education, nicotine lozenges as needed. (6) CVA (cerebral vascular accident): Status: Resolved Assessment and plan: history of, stable, continue asa, plavix and statin (7) ASCVD (arteriosclerotic cardiovascular disease): Status: Chronic Assessment and plan: stable, continue asa, plavix and statin (8) BPH loc w urin obs/LUTS: Status: Acute Assessment and plan: stable, continue tamsulosin, monitor for signs of retention (9) DVT prophylaxis: Status: Acute Assessment and plan: enoxaparin and teds, pt will be ambulatory and not on bedrest (10) Discharge planning issues: Status: Acute Assessment and plan: anticipate discharge to home with no services once medically stable History of Present Illness History of Present Illness Chief Complaint: lesion Narrative: This is a 74-year-old male with diabetes who presents to the ED for ongoing abscess to his posterior neck that is recurrent despite needle aspiration performed 4 days ago. He reports subjective fevers, but none documented. He reports that his blood sugars have been poorly controlled. pcp has been increasing night lantus currently at 36 units. He returns to the ED today and underwent another I&D with culture obtained this time. he was placed on keflex and given IV vancomycin in the ED. Bed request was made for inpatient treatment of infection with poorly controlled blood sugars. Review of Systems Constitutional Constitutional: Reports chills and Reports fever(s) Eyes Eyes: Denies loss of vision Neurologic Neurologic: Denies loss of vision [facility] Medical History ASCVD (arteriosclerotic cardiovascular disease) (Chronic 05/05/13) 2 NEW STENTS 04/22 H/O IMI; angioplasty and stent; [place] , 02/11; CVA/TIA BPH loc w urin obs/LUTS (Acute) Chronic obstructive lung disease (Chronic) pulmonary fibrosis on chest xray ongoing tobacco use add back budesonide nebs to see if we can improve cough CVA (cerebral vascular accident) (Resolved 11/21/17) Depressive disorder (Chronic) Diabetes mellitus (Chronic 05/05/13) check A1c and creat Flank pain (Acute) Gastroesophageal reflux disease (Chronic) Hyperlipidemia (Chronic 05/05/13) Hypertension (Chronic) same meds, good BP here today RCA occlusion (Acute) [place]25/19 [facility] [place]umatoid [place] (Chronic 05/05/13) [facility] [place] Leon Surgical History Colonoscopy - MAC (05/16/13) Colonoscopy - MAC (11/13/16) Colostomy (~2006) TEMP W/ REVISION Excision, Lipoma (05/19/16) posterior neck Hernia Repair, Incisional KNEE REPAIR RIGHT RESECTION ANGIOFIBROMA;RIGHT FOOT 02/04/18 Stented coronary artery (Acute) 05/25/19 [facility] [place]; s/p stent of old stent-KB Family History Mother Essential hypertension Heart disease Stroke Father Stroke Brother Heart disease Family History Diabetes Heart disease Cancer Brother No problems noted. Brother No problems noted. Sister No problems noted. Sister Alcohol abuse Social History Smoking/Tobacco Use Status: Former Tobacco Use Quit Date: 09/12/19 Tobacco: How many years used: 60 Quit status: has quit before Second Hand Exposure: Yes Alcohol Intake: former Drug use: Never Substance use type: does not use Caregiver/Support person: No Household members: none Housing: house Communication Needs: Hard of Hearing Do you need help understanding health information?: Rarely Pets and animals: No Sexually active: No Current gender identity: male What is your relationship status?: How often do you talk on the phone with friends or family?: decline to answer How often do you get together with friends or relatives?: decline to answer How often do you attend restoration or adventist services?: decline to answer Do you belong to any clubs or organized social groups?: decline to answer Panel score (0-1 are the most socially isolated patients): 0 What type of physical activity do you participate in: decline to answer Duration: decline to answer Frequency: decline to answer Monika/Yazdanism: None Special monika needs: No Seatbelt use: sometimes Helmet use: No Drive intox or ride w/intox warehouse associate driver: No Do you feel safe at home: Yes Do you feel safe in your relationship?: Yes Additional Social history: twice; lives [facility] in [facility] [place] [facility]; has 4 grown children;3 daughters, 1 son Meds Home Medications and Allergies Home Medications Medication Instructions Recorded Confirmed Type Space Chamber Plus #1 05/27/15 10/18/19 History Remicade 1,000 mg IV .[id number] vial 05/31/15 10/18/19 History acetaminophen 650 mg PO Q8H PRN #20 tablet.er 04/30/17 10/18/19 Rx aspirin 81 mg PO DAILY tab-cap 05/13/18 10/18/19 History fluticasone propionate 50 2 spray NS DAILY #1 gm 11/15/18 10/18/19 Rx mcg/actuation nasal spray,suspension clopidogrel 75 mg tablet 75 mg PO DAILY #90 tab 02/21/19 10/18/19 Rx losartan 100 mg tablet 100 mg PO DAILY #90 tab-cap 02/21/19 10/18/19 Rx nicotine (polacrilex) 4 mg buccal 4 mg MM Q4H PRN #72 each 02/21/19 10/18/19 Rx lozenge tamsulosin 0.4 mg PO DAILY 05/25/19 10/18/19 History amlodipine 10 mg tablet 10 mg PO HS tab 06/02/19 10/18/19 History atorvastatin 80 mg tablet 80 mg PO QHS 06/02/19 10/18/19 History nitroglycerin 0.4 mg sublingual 0.4 mg SUBLINGUAL PRN #25 tab-cap 06/02/19 10/18/19 Rx tablet spironolactone 25 mg tablet 25 mg PO DAILY 06/02/19 10/18/19 History ezetimibe 10 mg tablet 10 mg PO DAILY #30 tab 06/29/19 10/18/19 Rx albuterol sulfate 90 mcg/actuation 2 puff IH Q6H PRN #6.7 gm 08/04/19 10/18/19 Rx aerosol inhaler pen needle, diabetic 33 gauge x #100 each 08/18/19 10/18/19 Rx 5/32 empagliflozin 25 mg tablet 25 mg PO QAM #30 tab 08/23/19 10/18/19 Rx blood sugar diagnostic #200 strip 09/21/19 10/18/19 Rx lancets 28 gauge #200 each 09/21/19 10/18/19 Rx budesonide 0.5 mg/2 mL suspension 0.5 mg INHALATION BID #60 amp 10/04/19 10/18/19 Rx for nebulization insulin glargine 100 unit/mL (3 30 - 50 unit SC HS #45 ml 10/04/19 10/18/19 Rx mL) subcutaneous pen pantoprazole 40 mg tablet,delayed 40 mg PO DAILY #90 tab 10/04/19 10/18/19 Rx release albuterol sulfate [Ventolin HFA] 90 mcg INHALATION 10/09/19 10/18/19 History mupirocin 2 % topical ointment 1 applic TP BID #15 gm 10/09/19 10/18/19 Rx doxycycline hyclate 100 mg PO BID #14 tab 10/13/19 10/18/19 Rx Allergies Allergy/AdvReac Type Severity Reaction Status Date / Time venom-honey bee Allergy Severe ANAPHYLAXSI Verified 10/18/19 08:41 [bee venom (honey bee)] S Sulfa (Sulfonamide Allergy Unknown unknown Verified 10/18/19 08:41 Antibiotics) leflunomide [From Arava] AdvReac Intermediate DIARRHEA Verified 10/18/19 08:41 metformin AdvReac Intermediate diarrhea Verified 02/05/20 08:41 Exam Const General: cooperative, healthy appearing and comfortable Nutritional Appearance: overweight Orientation: alert, awake and oriented x3 HENMT Head: normal to inspection, normocephalic and atraumatic Mouth: oral mucosae normal Neck Neck: full ROM, no lymphadenopathy and other (round lesion scabbed consistent with I&D site, firm not fluctant no erythem) Resp Effort & Inspection: normal respiratory effort Auscultation: clear to auscultation bilaterally Cardio Rate: regular rate Rhythm: regular rhythm GI Inspection: normal to inspection Auscultation: normal bowel sounds Skin Lesions: lesion noted (posterior neck, scabbed, firm not fluctuant, no surrounding erythema) Rashes: no rashes Neuro General: alert, awake and oriented x3 Extrem General: normal to inspection, full ROM and no pedal edema Results Labs Result diagrams: 10/13/19 06:40 10/13/19 06:40 Labs: Laboratory Results - last 24 hr 10/12/19 13:40 WBC 8.07 RBC 4.91 Hgb 15.2 Hct 44.8 MCV 91.2 MCH 31.0 MCHC 33.9 RDW 12.8 Plt Count 198 MPV 11.9 H Immature Gran % 0.2 Neutrophils % 58.2 Lymphocytes % 23.9 Monocytes % 9.3 Eosinophils % 7.8 Basophils % 0.6 Absolute Neutrophils 4.69 Absolute Lymphocytes 1.93 Absolute Monocytes 0.75 H Absolute Eosinophils 0.63 Absolute Basophils 0.05 Last Vital Signs Temp 36.4 C L 10/12/19 11:55 Pulse 62 10/12/19 11:55 Resp 18 10/12/19 11:55 BP 127/72 10/12/19 11:55 Pulse Ox 94 L 10/12/19 11:55
[2019-10-12 14:15] LABS: ALT 83 U/L (16-63); AST 35 U/L (15-37); Albumin 3.6 g/dL (3.4-5.0); Alkaline Phosphatase 90 U/L (46-116); Anion Gap 6.3 mmol/L (3-11); BUN 18 mg/dL (7-18); Bilirubin, Total 0.5 mg/dL (0.2-1.0); CO2 28.7 mmol/L (21.0-32.0); CREATININE 1.27 mg/dL (0.70-1.30); Calcium 8.9 mg/dL (8.5-10.1); Chloride 104 mmol/L (98-107); Estimated GFR 55.75 (mL/min/1.73m2); Glucose 293 mg/dL (74-106); Potassium 4.5 mmol/L (3.5-5.1); Sodium 139 mmol/L (136-145); Total Protein 7.2 g/dL (6.4-8.2)
[2019-10-12] MEDS: VANCOMYCIN 1,500 MG in Normal Saline 250 ML 166.6666 MG IVPB (14:22)
[2019-10-12] MEDS: Normal Saline 1,000 ML 100 ML IV (14:22)
[2019-10-12 14:38] VITALS: BP 145/75; PULSE 60; RESP 18; TEMP 36.8; O2SAT 94
[2019-10-12 14:40] VITALS: BP 141/78; BP 145/75; PULSE 60; RESP 18; RESP 19; TEMP 36; TEMP 36.8; O2SAT 92; O2SAT 94
[2019-10-12 14:58] VITALS: BP 141/78; PULSE 60; RESP 19; TEMP 36; O2SAT 92
[2019-10-12 15:54] LABS: Hemoglobin A1C > 14.0 % (3.8-5.6)
[2019-10-12] MEDS: cefTRIAXone 1 GM/50 ML BAG IVPB (16:20)
[2019-10-12] MEDS: Normal Saline Flush 10 ML SYR IVP (16:21)
[2019-10-12] MEDS: Insulin Aspart 300 UNITS/3 ML PEN SC (17:30)
[2019-10-12] MEDS: Budesonide 0.5 MG/2 ML UPD VIAL IH (20:58)
[2019-10-12] MEDS: amLODIPine 10 MG TAB PO (21:08)
[2019-10-12] MEDS: Insulin Glargine 300 UNITS/3 ML PEN 30 UNITS SC (21:08)
[2019-10-12] MEDS: Atorvastatin 40 MG TAB 80 MG PO (21:08)
[2019-10-12 21:09] VITALS: BP 120/70; PULSE 58; RESP 18; TEMP 36.6; O2SAT 94
[2019-10-13] MEDS: VANCOMYCIN 1,000 MG in Normal Saline 250 ML 166.667 MG IV (02:04)
[2019-10-13] MEDS: Normal Saline Flush 10 ML SYR IVP (02:05)
[2019-10-13] MEDS: Acetaminophen 325 MG TAB 650 MG PO (06:34)
[2019-10-13 07:40] LABS: Abs Immature Grans 0.01 k/cumm (0.0-0.09); Absolute Basophil Count 0.07 k/cumm (0.0-0.2); Absolute Eosinophil Count 0.63 k/cumm (0.0-0.7); Absolute Lymphocyte Count 2.03 k/cumm (1.2-3.4); Absolute Monocyte Count 0.96 k/cumm (0.11-0.7); Absolute Neutrophil Count 4.67 k/cumm (1.2-6.7); Basophils % 0.8; Eosinophils % 7.5; HCT 43.1 % (40.0-50.0); HGB 14.7 g/dL (13.5-17.5); Immature Grans % 0.1 %; Lymphocytes % 24.3; Mean Corp. HGB Concentration 34.1 g/dL (32.0-36.0); Mean Corpuscular Hemoglobin 31.2 pg (27.0-33.0); Mean Corpuscular Volume 91.5 fL (80-95); Mean Platelet Volume 12.1 fL (8.0-11.0); Monocytes % 11.5; Neutrophils % 55.8; Platelet Count 203 x1000/uL (130-400); RBC 4.71 m/cumm (4.50-6.00); RBC Distribution Width 12.8 % (11.8-14.1); White Blood Cell Count 8.37 k/cumm (4.4-10.8)
[2019-10-13 07:47] VITALS: BP 114/64; PULSE 62; RESP 18; TEMP 36.9; O2SAT 93
[2019-10-13 07:58] LABS: ALT 67 U/L (16-63); AST 25 U/L (15-37); Albumin 3.4 g/dL (3.4-5.0); Alkaline Phosphatase 85 U/L (46-116); Anion Gap 7.1 mmol/L (3-11); BUN 20 mg/dL (7-18); Bilirubin, Total 0.6 mg/dL (0.2-1.0); CO2 26.9 mmol/L (21.0-32.0); Calcium 8.9 mg/dL (8.5-10.1); Chloride 107 mmol/L (98-107); Glucose 135 mg/dL (74-106); Potassium 3.7 mmol/L (3.5-5.1); Sodium 141 mmol/L (136-145); Total Protein 6.7 g/dL (6.4-8.2)
[2019-10-13] MEDS: Pantoprazole 40 MG TABCR PO (08:38)
[2019-10-13] MEDS: Ezetimibe 10 MG TAB PO (08:38)
[2019-10-13] MEDS: Spironolactone 25 MG TAB PO (08:39)
[2019-10-13] MEDS: Enoxaparin 40 MG/0.4 ML SYR SC (08:39)
[2019-10-13] MEDS: Clopidogrel 75 MG TAB PO (08:39)
[2019-10-13] MEDS: Aspirin 81 MG CHEW PO (08:44)
[2019-10-13] MEDS: Tamsulosin 0.4 MG CAPCR PO (08:44)
[2019-10-13] MEDS: Losartan 50 MG TAB 100 MG PO (08:44)
[2019-10-13] MEDS: Fluticasone NASAL SPRAY 16 GM BTL NS (08:53)
[2019-10-13] MEDS: Insulin Aspart 300 UNITS/3 ML PEN SC (12:16)
[2019-10-13] MEDS: Lidocaine 1% Multi-Dose 50 ML VIAL (12:29)
[2019-10-13] MEDS: Povidone-Iodine Soln. 118 ML BTL (12:31)
--- NOTE | 2019-10-13 12:34 | DSE_ITS ---
Date of service: 10/13/19 Time of Service: 12:34 DS: Diagnosis Discharge Diagnosis (1) Abscess of neck: Start date: 10/13/19 Start time: 12:34 Status: Acute Asessment and Plan: Incision with packing to neck. Leave packing in place for a couple of days, follow up with PCP on wednesday. Doxycycline BIDx 7 days. (2) Diabetes mellitus: Start date: 10/13/19 Start time: 12:36 Status: Chronic Asessment and Plan: A1C 14. Check blood sugar daily. Call primary office for bgl over 450. Follow up for tighter control in PCP office (3) Chronic obstructive lung disease: Start date: 10/13/19 Start time: 12:34 Status: Chronic Asessment and Plan: Not exacerbated at this time. (4) Essential hypertension: Status: Acute (5) Smoker: Start date: 10/13/19 Start time: 12:37 Status: Acute Asessment and Plan: Not interested in cessation at this time. (6) CVA (cerebral vascular accident): Status: Resolved (7) ASCVD (arteriosclerotic cardiovascular disease): Status: Chronic (8) BPH loc w urin obs/LUTS: Status: Acute (9) DVT prophylaxis: Status: Acute (10) Discharge planning issues: Status: Acute Discharge Plan Disposition Patient Disposition: HOME Condition: Good Discharge Details Chief Complaint: Cellulitis Clinical Impression: Abscess of neck, Acute hyperglycemia Reason For Visit: CELLULITIS/ABSCESS Admit Date/Time: 10/12/19 14:11 Admit Provider: Chris Holley Attending Provider: Chris Holley Primary Care Provider: Mike Burns ED Provider: Adan Russell [place] [facility] Course Hospital Course: 74 y.o male with Diabetes admitted from [facility] ED for ongoing abscess to posterior neck. Drained initially Wednesday in the ED, patient returned yesterday for needle aspiration of abscess. In the ED he was found to have an elevated glucose in the 400's and admitted for further management. Today his glucose is 135 by am labs. His A1C is 14, per patient his pcp has been trying to increase his lantus and manage his glucose better. early childhood educator aide met with patient to discuss diet. His abscess was purulent increased and purulent following his shower. An I&D was performed to drain his abscess with packing, using sterile technique, 1% lidocaine injected for pain and iodine used to clean site, 1/4 inch iodiform used for packing. Purulent drainage oozing from abscess no odor. Culture revealing gram positive after 24 hours, afebrile, WBC normal. Patient is being discharged home with follow up to PCP on wednesday. He will be discharged home on doxycycline po BID. Recommended patient check fingerstick glucose at every meal and record number, call PCP for glucose greater than 450. He is agreeable to recommendation. He denies CP, SOB, N/V/D. Home Meds and New Rx's Prescriptions: Continued nicotine (polacrilex) [Nicorette] 4 mg lozenge 4 mg MM Q4H PRN (Reason: nicotine cravings) Qty: 72 RF: 2 clopidogrel [Plavix] 75 mg tablet 75 mg PO DAILY Qty: 90 RF: 4 losartan 100 mg tablet 100 mg PO DAILY Qty: 90 RF: 3 amlodipine 10 mg tablet 10 mg PO HS RF: 0 atorvastatin 80 mg tablet 80 mg PO QHS RF: 0 spironolactone 25 mg tablet 25 mg PO DAILY RF: 0 nitroglycerin [Nitrostat] 0.4 mg tablet, sublingual 0.4 mg Sublingual PRN Qty: 25 RF: 11 ezetimibe 10 mg tablet 10 mg PO DAILY Qty: 30 RF: 11 fluticasone propionate 50 mcg/actuation spray,suspension 2 spray NS DAILY Qty: 1 RF: 5 insulin glargine 100 unit/mL (3 mL) insulin pen 30 - 50 unit SC HS Qty: 45 RF: 3 budesonide 0.5 mg/2 mL suspension for nebulization 0.5 mg Inhalation BID Qty: 60 RF: 11 pantoprazole 40 mg tablet,delayed release (DR/EC) 40 mg PO DAILY Qty: 90 RF: 3 Remicade 100 MG recon soln 1,000 mg IV .[id number] RF: 0 aspirin 81 MG tablet,chewable 81 mg PO DAILY RF: 0 albuterol sulfate [Proventil HFA] 90 mcg/actuation HFA aerosol inhaler 2 puff IH Q6H PRN (Reason: shortness of breath or wheezing) Qty: 6.7 RF: 5 Jardiance 25 mg tablet 25 mg PO QAM Qty: 30 RF: 11 mupirocin 2 % ointment 1 applic TP BID Qty: 15 RF: 0 acetaminophen 650 MG tablet extended release 650 mg PO Q8H PRN (Reason: Pain) Qty: 20 RF: 0 tamsulosin 0.4 mg Capsule 0.4 mg PO DAILY RF: 0 albuterol sulfate [Ventolin HFA] 90 mcg/actuation Hfa Aerosol Inhaler 90 mcg INHALATION RF: 0 No Action (DME) Advocate Pen Needle 33 gauge x 5/32 needle See Rx Instructions .ROUTE .MEDSUPPLY Qty: 100 RF: 3 (DME) Space Chamber Plus 1 EACH spacer 1 ea Miscellaneous PRN Qty: 1 RF: 0 (DME) FreeStyle Test Strip 1 strip Miscellaneous DAILY Qty: 200 RF: 4 (DME) lancets [FreeStyle Lancets] 28 gauge misc 1 ea Intradermal DAILY Qty: 200 RF: 4 Discharge Instructions Instructions: Abscess (ED) Additional Instructions: Please take full course of antibiotics as prescribed. Monitor your blood sugar closely and maintain a healthy low carbohydrate diet. Follow up with your PCP on Wednesday Return to the ER for any worsening or new concerning symptoms. Referrals: Mike Burns [Primary Care Provider] - Activity:: Activity as Tolerated Equipment/Supplies:: No Equipment Needed Diet:: Carb Counting Discharge Orders Discharge Orders: Discharge Order (Routine); Ordered 10/13/19 Ordered By: Neli Miles DS: Summary Status at Discharge Functional status at discharge: independent ambulation Overall status at discharge: patient is back to baseline Mental Status: mental status grossly normal Speech and Movement: speech and movement normal Mood: congruent mood Affect: normal affect Exam Const General: cooperative, healthy appearing, comfortable and no acute distress Orientation: alert, awake and oriented x3 HENMT Head: normal to inspection Face and sinus: normal facial exam Mouth: moist mucous membranes Eyes Conjunctivae: conjunctivae normal Sclera: sclerae normal Pupils: PERRL EOM: EOM intact bilaterally Neck Neck: no JVD Thyroid: thyroid normal Carotids: normal carotid upstroke Lymphatic: no lymphadenopathy noted Chest Chest: normal inspection of the chest Resp Effort & Inspection: normal respiratory effort Auscultation: clear to auscultation bilaterally Cardio Jugular venous pressure: no JVD Rate: regular rate Rhythm: regular rhythm Heart Sounds: S1 normal and S2 normal GI Inspection: normal to inspection Auscultation: normal bowel sounds Skin General skin exam: other (wound to posterior neck. ) Neuro General: alert, awake and oriented x3 Extrem General: normal to inspection and full ROM Psych Mental Status: mental status grossly normal Speech and Movement: speech and movement normal Mood: congruent mood Affect: normal affect DS: Data Vitals/I&O Vitals and I&O: Vital Signs Temperature 36.9 C 10/13/19 07:47 Temperature Source Tympanic 10/13/19 07:47 Pulse 62 10/13/19 07:47 Pulse Rhythm Irregular 10/13/19 02:03 Respiratory Rate 18 10/13/19 07:47 Respiratory Effort Non-Labored 10/13/19 02:03 Respiratory Depth Normal 10/13/19 02:03 Respiratory Pattern Normal 10/13/19 02:03 Blood Pressure 114/64 10/13/19 07:47 Blood Pressure Position Sitting 10/12/19 11:55 Pulse Oximetry 93 L 10/13/19 07:47 Oxygen Delivery Method Room Air 10/13/19 07:47 Oxygen Flow Rate 0 10/13/19 07:47 Pain Level 4 10/13/19 07:47 Comment 10/12/19 11:55 Intake & Output 10/12/19 10/13/19 10/13/19 23:59 11:59 23:59 Intake Total 240 / 240 780 / 780 Output Total 520 / 520 500 / 500 Balance -280 / -280 280 / 280 Weight 97.069 kg Intake: IV 300 / 300 Oral 240 / 240 480 / 480 Output: Urine 420 / 420 500 / 500 Stool 100 / 100 Other: Urine Color Yellow Pale Yellow Urine Appearance Clear Clear Urine Odor None Stool Size Small Stool Characteristics Soft Liquid Brown Voiding Methods Toilet Urinal Data Completed and Pending Labs on day of discharge: Labs from last 24 hours 10/13/19 10/13/19 10/12/19 06:40 06:40 13:50 WBC 8.37 RBC 4.71 Hgb 14.7 Hct 43.1 MCV 91.5 MCH 31.2 MCHC 34.1 RDW 12.8 Plt Count 203 MPV 12.1 H Immature Gran % 0.1 Neutrophils % 55.8 Lymphocytes % 24.3 Monocytes % 11.5 Eosinophils % 7.5 Basophils % 0.8 Absolute Neutrophils 4.67 Absolute Lymphocytes 2.03 Absolute Monocytes 0.96 H Absolute Eosinophils 0.63 Absolute Basophils 0.07 Sodium 141 Potassium 3.7 Chloride 107 Carbon Dioxide 26.9 Anion Gap 7.1 BUN 20 H Creatinine 1.00 Estimated GFR/1.73 m2 >= 60.00 Glucose 135 H D Hemoglobin A1c > 14.0 H Calcium 8.9 Total Bilirubin 0.6 AST 25 ALT 67 H Alkaline Phosphatase 85 Total Protein 6.7 Albumin 3.4 10/12/19 10/12/19 13:50 13:40 WBC 8.07 RBC 4.91 Hgb 15.2 Hct 44.8 MCV 91.2 MCH 31.0 MCHC 33.9 RDW 12.8 Plt Count 198 MPV 11.9 H Immature Gran % 0.2 Neutrophils % 58.2 Lymphocytes % 23.9 Monocytes % 9.3 Eosinophils % 7.8 Basophils % 0.6 Absolute Neutrophils 4.69 Absolute Lymphocytes 1.93 Absolute Monocytes 0.75 H Absolute Eosinophils 0.63 Absolute Basophils 0.05 Sodium 139 Potassium 4.5 Chloride 104 Carbon Dioxide 28.7 Anion Gap 6.3 BUN 18 Creatinine 1.27 Estimated GFR/1.73 m2 55.75 Glucose 293 H Hemoglobin A1c Calcium 8.9 Total Bilirubin 0.5 AST 35 ALT 83 H Alkaline Phosphatase 90 Total Protein 7.2 Albumin 3.6 Preliminary micro results at discharge 10/12/19 13:36 Abscess Culture - Preliminary Neck - Right Staphylococcus Aureus [facility] Medical History ASCVD (arteriosclerotic cardiovascular disease) (Chronic 05/05/13) 2 NEW STENTS 04/22 H/O IMI; [place]; [place] , 02[place]; CVA/TIA BPH loc w urin obs/LUTS (Acute) Chronic obstructive lung disease (Chronic) pulmonary fibrosis on chest xray ongoing tobacco use add back budesonide nebs to see if we can improve cough CVA (cerebral vascular accident) (Resolved 11/21/17) Depressive disorder (Chronic) Diabetes mellitus (Chronic 05/05/13) check A1c and creat Flank pain (Acute) Gastroesophageal reflux disease (Chronic) Hyperlipidemia (Chronic 05/05/13) Hypertension (Chronic) same meds, good BP here today RCA occlusion (Acute) 05/25/19 [facility] [place]umatoid arthritis (Chronic 05/05/13) [facility] [place] Leon Surgical History Colonoscopy - MAC (05/16/13) Colonoscopy - MAC (11/13/16) Colostomy (~2006) TEMP W/ REVISION Excision, Lipoma (05/19/16) posterior neck Hernia Repair, Incisional KNEE REPAIR RIGHT RESECTION ANGIOFIBROMA;RIGHT FOOT 02/04/18 Stented coronary artery (Acute) 05/25/19 [facility] [place]; s/p stent of old stent-KB Family History Mother Essential hypertension Heart disease Stroke Father Stroke Brother Heart disease Family History Diabetes Heart disease Cancer Brother No problems noted. Brother No problems noted. Sister No problems noted. Sister Alcohol abuse Social History Smoking/Tobacco Use Status: Former Tobacco Use Quit Date: 05/25/19 Tobacco: How many years used: 60 Quit status: has quit before Second Hand Exposure: Yes Alcohol Intake: former Drug use: Never Substance use type: does not use Caregiver/Support person: No Household members: none Housing: house Communication Needs: Hard of Hearing Do you need help understanding health information?: Rarely Pets and animals: No Sexually active: No Current gender identity: male What is your relationship status?: How often do you talk on the phone with friends or family?: decline to answer How often do you get together with friends or relatives?: decline to answer How often do you attend taoism or mandaeism services?: decline to answer Do you belong to any clubs or organized social groups?: decline to answer Panel score (0-1 are the most socially isolated patients): 0 What type of physical activity do you participate in: decline to answer Duration: decline to answer Frequency: decline to answer Monika/Buddhism: None Special monika needs: No Seatbelt use: sometimes Helmet use: No Drive intox or ride w/intox xm1 tank driver: No Do you feel safe at home: Yes Do you feel safe in your relationship?: Yes Additional Social history: twice; lives [place]; has 4 grown children;3 daughters, 1 son
--- NOTE | 2019-10-13 14:02 | INITIAL_ITS ---
- If Service Date Differs Date of service: 10/13/19 Time of Service: 14:02 Care Management Initial Assess REASON FOR HOSPITALIZATION:: Pneumonia PAST MEDICAL HISTORY/PAST SURGICAL HISTORY:: CVA, COPD, diabetes, hyperlipidemia, GERD, rheumatoid arthritis, depression, hypertension, EtOH use, diverticulitis, abscess of the neck, fatigue, bradycardia, BPH, RCA occlusion, stented coronary artery, [place], arteriosclerotic cardiovascular disease. Surgical history: Coronary artery stent, lipoma excision, colostomy with revision, hernia repair, knee repair. PREVIOUS FUNCTIONAL STATUS/SOCIAL/FAMILY SUPPORTS:: Bobby lives with his adult son in [facility]. He is retired, he uses a cane for ambulation. His family is supportive and assist him at home. CURRENT FUNCTIONAL STATUS:: Bobby is alert and engaged with CM during assessment. He would like to learn more about his diabetes and how to manage his hyperglycemia. CM contacted perioperative educator and requested visit with rosi arce prior to discharge. CM also sent a referral for Meals on Wheels, as Bobby identifies food insecurity. His family is present during education and willing to assist him with managing his diabetes. ADVANCE DIRECTIVES:: On file daughter Kandis is agent. Has patient been provided with information about the portal?: Yes Did the patient sign up for the portal?: No CODE STATUS:: Full Code INSURANCE COVERAGE / FINANCIAL ISSUES:: Medicare and [employer] assistance CURRENT HOME/COMMUNITY SERVICES/EQUIPMENT:: None at this time. Patient sent referral to director of counseling on aging for options and Meals on Wheels, and referral to perioperative educator. PRIMARY CARE PHYSICIAN:: Mike Burns MD POTENTIAL DISCHARGE NEEDS:: Follow-up appointment scheduled with primary care provider, ongoing diabetic education after discharge. PATIENT/FAMILY EDUCATION NEEDS:: Discharge education, limitations, follow-up plan of care, asked me 3 and self-management. ANTICIPATED BARRIERS TO DISCHARGE:: None identified TRANSPORTATION:: Via private car with family at time of discharge. PLAN:: Bobby to be discharged home today on oral antibiotics. CM sent a referral to counseling aging for Meals on Wheels and options counseling. Bobby and his family are interested in diabetes management CM made a referral to perioperative educator prior to discharge. Bobby a plan to follow-up with his primary care as directed.
--- NOTE | 2019-10-13 16:04 | W.NUTRFU ---
Date of service: 10/13/19 Time of Service: 16:04 Nutritional Follow up NOTE: DM consult received however discharged before being seen by CDE. Met with Bobby and his son and daughter as they were packing up and provided them with CDE contact information. Bobby has been to outpatient diabetes counseling in past and is willing to start again for blood sugar improvement. Time Spent in Nutritional Counseling and Treatment: 10 min spent face to face
== END 2019-10-13 13:52 | disposition home or self-care (01) | DRG 603 ==
LOC: ER 14:33 → MS 14:49
PROVIDERS: Nurse Practitioner Acute Care; Admitting Provider Family Medicine; Emergency Provider Student in an Organized Health Care Education/Training Program; PCP Family Medicine; Visit Provider Family Medicine
DX: L02.11 Cutaneous abscess of neck (principal); B95.61 Methicillin susceptible Staphylococcus aureus infection as the cause of diseases classified elsewhere; E11.65 Type 2 diabetes mellitus with hyperglycemia; J44.9 Chronic obstructive pulmonary disease, unspecified; I10 Essential (primary) hypertension; F17.210 Nicotine dependence, cigarettes, uncomplicated; Z86.73 Personal history of transient ischemic attack (TIA), and cerebral infarction without residual deficits; I25.10 Atherosclerotic heart disease of native coronary artery without angina pectoris; N40.1 Benign prostatic hyperplasia with lower urinary tract symptoms; Z79.4 Long term (current) use of insulin; Z71.3 Dietary counseling and surveillance; Z95.5 Presence of coronary angioplasty implant and graft
CPT/HCPCS: 10060; 36415; 36416; 80053; 82962; 87077; 96365; 99223; 99239; 99285; J1650; 83036; 85025; 87070; 87186; 87205; 99284; J0696; J7626

== ENCOUNTER 2019-10-24 01:48 | Outpatient (RCR) | payer MEDICARE, SELFPAY ==
[2019-10-24] VITALS (10 sets, daily range): BP systolic 116–142; BP diastolic 70–96; PULSE 48–59; RESP 18–20; TEMP 35.9–36.5; O2SAT 93–96
[2019-10-24] MEDS: methylPREDNISolone SUCC 125 MG VIAL 100 MG IV (09:39)
[2019-10-24] MEDS: diphenhydrAMINE 50 MG/ML VIAL IVP (09:39)
[2019-10-24] MEDS: Normal Saline Flush 10 ML SYR IVP (09:40)
== END 2019-11-11 23:59 | disposition home or self-care (01) ==
LOC: INF 01:48
PROVIDERS: PCP Family Medicine; Visit Provider Family Medicine
DX: M06.9 Rheumatoid arthritis, unspecified (principal)
CPT/HCPCS: 96365; 96366; J1200; J2930; J9310

== ENCOUNTER 2019-11-09 09:00 | Outpatient (RCR) | payer SELFPAY | END 2019-11-11 23:59 | disposition home or self-care (01) | LOC: CR 09:00 | PROVIDERS: PCP Family Medicine; Visit Provider Family Medicine | DX: I25.2 Old myocardial infarction (principal); Z95.5 Presence of coronary angioplasty implant and graft; Z51.89 Encounter for other specified aftercare ==

== ENCOUNTER 2019-11-14 20:16 | Emergency (ER) | payer MEDICARE, SELFPAY ==
[2019-11-14] VITALS (17 sets, daily range): BP systolic 106–172; BP diastolic 50–93; PULSE 47–93; RESP 19–27; TEMP 36.6; O2SAT 86–94
--- NOTE | 2019-11-14 20:18 | W.ED.GENAD ---
Discharge Plan Disposition Patient Disposition: HOME Condition: Stable Discharge Details Chief Complaint: Chest Pain Clinical Impression: Atypical chest pain, Epigastric pain Primary Care Provider: Mike Burns ED Provider: Kathy Reinoso Home Meds and New Rx's Prescriptions: Continued nicotine (polacrilex) [Nicorette] 4 mg lozenge 4 mg MM Q4H PRN (Reason: nicotine cravings) Qty: 72 RF: 2 clopidogrel [Plavix] 75 mg tablet 75 mg PO DAILY Qty: 90 RF: 4 losartan 100 mg tablet 100 mg PO DAILY Qty: 90 RF: 3 (DME) pen needle, diabetic [Advocate Pen Needle] 33 gauge x 5/32 needle See Rx Instructions .ROUTE .MEDSUPPLY Qty: 100 RF: 3 spironolactone 25 mg tablet 25 mg PO DAILY RF: 0 nitroglycerin [Nitrostat] 0.4 mg tablet, sublingual 0.4 mg Sublingual PRN Qty: 25 RF: 11 ezetimibe 10 mg tablet 10 mg PO DAILY Qty: 30 RF: 11 fluticasone propionate 50 mcg/actuation spray,suspension 2 spray NS DAILY Qty: 1 RF: 5 budesonide 0.5 mg/2 mL suspension for nebulization 0.5 mg Inhalation BID Qty: 60 RF: 11 pantoprazole 40 mg tablet,delayed release (DR/EC) 40 mg PO DAILY Qty: 90 RF: 3 (DME) Space Chamber Plus 1 EACH spacer 1 ea Miscellaneous PRN Qty: 1 RF: 0 Remicade 100 MG recon soln 1,000 mg IV .[id number] RF: 0 aspirin 81 MG tablet,chewable 81 mg PO DAILY RF: 0 albuterol sulfate [Proventil HFA] 90 mcg/actuation HFA aerosol inhaler 2 puff IH Q6H PRN (Reason: shortness of breath or wheezing) Qty: 6.7 RF: 5 amlodipine 10 mg tablet 10 mg PO HS Qty: 90 RF: 3 atorvastatin 80 mg tablet 80 mg PO QHS Qty: 90 RF: 3 (DME) FreeStyle Test Strip 1 strip Miscellaneous DAILY Qty: 300 RF: 4 (DME) lancets [FreeStyle Lancets] 28 gauge misc 1 ea Intradermal DAILY Qty: 300 RF: 4 acetaminophen 650 MG tablet extended release 650 mg PO Q8H PRN (Reason: Pain) Qty: 20 RF: 0 tamsulosin 0.4 mg Capsule 0.4 mg PO DAILY RF: 0 albuterol sulfate [Ventolin HFA] 90 mcg/actuation Hfa Aerosol Inhaler 90 mcg INHALATION RF: 0 Jardiance 25 mg Tablet 25 mg PO DAILY RF: 0 Tlubcasone 50 mcg 2 intranasal BID RF: 0 insulin glargine 100 unit/mL (3 mL) insulin pen 54 unit SC HS RF: 0 Discharge Instructions Instructions: Chest Pain (ED), Epigastric Pain (ED) Additional Instructions: Please encourage water intake. You did appear dehydrated on labs today. Your labs are reassuring at this time. I am concerned that your discomfort may have been associated with the acidity of her food. I would like for you to follow-up closely with your primary care. Please call tomorrow to schedule appointment for later this week. If you develop increased pain, shortness of breath, difficulty breathing, radiating pain or other new/worsening symptoms please seek care urgently once again. Referrals: Mike Burns [Primary Care Provider] - Medical Decision Making Patient is a pleasant 74-year-old gentleman came accompanied by son, with chief complaint chest discomfort. Patient has had MIs historically. States that this does not feel the same as when he has had cardiac events historically. He reports that this pain is nonradiating, centrally located. He has had 2 episodes of short duration of discomfort. States this did come on after eating he was dining with a red sauce. He does report that it did feel similar to when he has had GERD historically. Denies any shortness of breath. However, he was noted by nursing staff to be short of breath when he first came in and was hypoxic with an oxygen of 86. Patient states that he was a longtime smoker. Did quit in May of last year. His son reports that he can become winded with exertion but this is not new or changed recently. He reports that earlier today, he was working on a car moving a battery and he did not have any symptoms at that time. He is currently asymptomatic and has been so even with the ambulation the department. On exam, patient is resting comfortably. He appears nontoxic. He is breathing comfortably with no evidence or respirtaory distress. His O2 was 86% on RA after ambulating into the department. Patient reports that this is typical for him. He reports that he is typically in the low 90s and dropped into the high 80s with ambulation. He does not have increased shortness of breath compared to his baseline. Contributes this to long smoking history and history of COPD. He does have epigastric discomfort elicited with palpation of this area. States that this is the area of his chest pain. No pain elicited with palpation of the chest itself. No lower extremity edema, calves are soft nontender. EKG was reviewed by Dr. Rogers. Patient is sinus rhythm with a rate of 74. Does have ectopic beats. First-degree block. Is unchanged from previous. No acute ischemic changes are noted. Given patient's past medical history, I feel that evaluation for ACS is appropriate. However, he my clinical gestalt is not for ACS. Patient denies this feeling like his cardiac events historically. Pain is elicited with palpation of the epigastric region, he was sedentary at the time of the onset. He was physically exerting himself earlier today and had absolutely no symptoms. This did come on approximately half an hour after eating tomato sauce-based meal. He has had a history of GERD and states that this does feel similar. Labs reviewed. No leukocytosis. Patient's not anemic. His creatinine is elevated at 1.37. Patient typically in the 1.2 range, I will encourage hydration. This troponin is less than 0.05. BNP is within normal limits. Lipase within normal limits. Chest x-ray reviewed by radiologist: FINDINGS: Lungs: There are increased bibasilar opacities, right side greater than left. There is mild hyperinflation with prominent interstitial markings. There is mild pulmonary vascular congestion. Pleural space: No pleural effusion or pneumothorax. Heart/Mediastinum: The heart is enlarged, similar to prior. Mediastinum stable in appearance. Bones/joints: There are mild degenerative changes. IMPRESSION: 1. Cardiomegaly and mild pulmonary vascular congestion. 2. Bibasilar atelectasis or infiltrate, right greater than left. This does not correlate clinically as the patient is not having any cough or fevers. Feels this is most likely bibasilar atelectasis. Discussed these findings with the patient. Given the patient's cardiac history, I do feel that the pattern is appropriate at this time. Discussed this plan with the patient is in agreement. Patient ambulated to the bathroom, oxygen 90% on room air with ambulation. Again, patient reports is baseline for him and is not having any respiratory symptoms at this time. Repeat troponin remains less than 0.05. His EDACS score puts patient at low risk. My clinical gestalt is also very low risk for this patient. However, given his history would like prompt follow-up with his primary care. I have advised he call tomorrow to schedule appointment this week. Is given strict return precautions. All his questions and concerns were addressed and he will return with any new or worsening symptoms. Patient is agreement with this plan. ECG Data Interpretation: 05 HPI General Mode of arrival: ambulatory. Date/Time Provider Initiated Documentation: 11/14/19 20:18. Limitations to Documentation: no limitations. Information obtained by: patient, family (son) and RN notes reviewed. History of Present Illness 74 year old M presents to the emergency department with the chief complaint of chest pain, described as moderate, with intensity rated at 6. Quality is described as aching, and is localized to the chest. Patient reports no radiation. Patient started experiencing this hour(s) and it has been intermittent and now resolved. No relieving factors improve symptom(s), No exacerbating factors reported . Patient notes chest pain; denies cough, diaphoresis, fever/chills, loss of appetite, nausea/vomiting, rash, shortness of breath and weakness. Patient did receive the following treatments prior to arrival, none Related Data Home Medications Medication Instructions Recorded Confirmed Space Chamber Plus #1 05/27/15 11/14/19 Remicade 1,000 mg IV .[id number] vial 05/31/15 11/14/19 acetaminophen 650 mg PO Q8H PRN #20 tablet.er 04/30/17 11/14/19 aspirin 81 mg PO DAILY tab-cap 05/13/18 11/14/19 fluticasone propionate 50 2 spray NS DAILY #1 gm 11/15/18 11/14/19 mcg/actuation nasal spray,suspension clopidogrel 75 mg tablet 75 mg PO DAILY #90 tab 02/21/19 11/14/19 losartan 100 mg tablet 100 mg PO DAILY #90 tab-cap 02/21/19 11/14/19 nicotine (polacrilex) 4 mg buccal 4 mg MM Q4H PRN #72 each 02/21/19 11/14/19 lozenge tamsulosin 0.4 mg PO DAILY 05/25/19 11/14/19 nitroglycerin 0.4 mg sublingual 0.4 mg SUBLINGUAL PRN #25 tab-cap 06/02/19 11/14/19 tablet spironolactone 25 mg tablet 25 mg PO DAILY 06/02/19 11/14/19 ezetimibe 10 mg tablet 10 mg PO DAILY #30 tab 06/29/19 11/14/19 albuterol sulfate 90 mcg/actuation 2 puff IH Q6H PRN #6.7 gm 08/04/19 11/14/19 aerosol inhaler pen needle, diabetic 33 gauge x #100 each 08/18/19 11/14/19 budesonide 0.5 mg/2 mL suspension 0.5 mg INHALATION BID #60 amp 10/04/19 11/14/19 for nebulization pantoprazole 40 mg tablet,delayed 40 mg PO DAILY #90 tab 10/04/19 11/14/19 release albuterol sulfate [Ventolin HFA] 90 mcg INHALATION 10/09/19 10/18/19 amlodipine 10 mg tablet 10 mg PO HS #90 tab 10/26/19 11/14/19 atorvastatin 80 mg tablet 80 mg PO QHS #90 tab 10/26/19 11/14/19 blood sugar diagnostic #300 strip 10/30/19 11/14/19 lancets 28 gauge #300 each 10/30/19 11/14/19 Jardiance 25 mg PO DAILY 11/14/19 11/14/19 Tlubcasone 2 INTRANASAL BID 11/14/19 insulin glargine 54 unit SC HS 11/14/19 11/14/19 Previous Rx's Medication Instructions Recorded acetaminophen 650 mg PO Q8H PRN #20 tablet.er 04/30/17 fluticasone propionate 50 2 spray NS DAILY #1 gm 11/15/18 mcg/actuation nasal spray,suspension clopidogrel 75 mg tablet 75 mg PO DAILY #90 tab 02/21/19 losartan 100 mg tablet 100 mg PO DAILY #90 tab-cap 02/21/19 nicotine (polacrilex) 4 mg buccal 4 mg MM Q4H PRN #72 each 02/21/19 lozenge nitroglycerin 0.4 mg sublingual 0.4 mg SUBLINGUAL PRN #25 tab-cap 06/02/19 tablet ezetimibe 10 mg tablet 10 mg PO DAILY #30 tab 06/29/19 albuterol sulfate 90 mcg/actuation 2 puff IH Q6H PRN #6.7 gm 08/04/19 aerosol inhaler pen needle, diabetic 33 gauge x #100 each 08/18/19 budesonide 0.5 mg/2 mL suspension 0.5 mg INHALATION BID #60 amp 10/04/19 for nebulization pantoprazole 40 mg tablet,delayed 40 mg PO DAILY #90 tab 10/04/19 release amlodipine 10 mg tablet 10 mg PO HS #90 tab 10/26/19 atorvastatin 80 mg tablet 80 mg PO QHS #90 tab 10/26/19 blood sugar diagnostic #300 strip 10/30/19 lancets 28 gauge #300 each 10/30/19 Allergies Allergy/AdvReac Type Severity Reaction Status Date / Time venom-honey bee Allergy Severe ANAPHYLAXSI Verified 11/14/19 20:29 [bee venom (honey bee)] S Sulfa (Sulfonamide Allergy Unknown unknown Verified 11/14/19 20:29 Antibiotics) leflunomide [From Arava] AdvReac Intermediate DIARRHEA Verified 11/14/19 20:29 metformin AdvReac Intermediate diarrhea Verified 11/14/19 20:29 General STAR: 3 Review of Systems Constitutional Constitutional: Reports as per HPI, Denies chills, Denies fever(s), Denies headache(s), Denies lethargy and Denies poor appetite Eyes Eyes: Denies change in vision ENT Ears, Nose, Mouth, and Throat: Denies dizziness and Denies headache(s) Cardiovascular Cardiovascular: Reports as per HPI, Denies dyspnea and Denies dyspnea on exertion Respiratory Respiratory: Reports as per HPI, Denies chest congestion, Denies cough, Denies pain on inspiration, Denies pain with cough, Denies dyspnea, Denies dyspnea on exertion and Denies wheezing Gastrointestinal Gastrointestinal: Reports as per HPI, Denies abdominal pain, Denies diarrhea, Denies nausea and Denies vomiting Genitourinary Genitourinary: Denies system reviewed and no additional complaints, except as docu (denies change in urinary habits) Musculoskeletal Musculoskeletal: Reports as per HPI and Denies back pain Integumentary/Breasts Skin/Breast: Reports as per HPI and Denies rash Neurologic Neurologic: Reports as per HPI, Denies dizziness and Denies headache(s) Allergic/Immunologic Allergic/Immunologic: Denies wheezing [facility] Medical History ASCVD (arteriosclerotic cardiovascular disease) (Chronic 05/05/13) 2 NEW STENTS 04/22 H/O IMI; angioplasty and stent; PA , 02/11; CVA/TIA BPH loc w urin obs/LUTS (Acute) Chronic obstructive lung disease (Chronic) pulmonary fibrosis on chest xray ongoing tobacco use add back budesonide nebs to see if we can improve cough CVA (cerebral vascular accident) (Resolved 11/21/17) Depressive disorder (Chronic) Diabetes mellitus (Chronic 05/05/13) check A1c and creat Flank pain (Acute) Gastroesophageal reflux disease (Chronic) Hyperlipidemia (Chronic 05/05/13) Hypertension (Chronic) same meds, good BP here today [place]CA [place] (Ac[place]) [place] [facility] [place]Chronic 05/05/13) [facility] [place] Surgical History Colonoscopy - MAC (05/16/13) Colonoscopy - MAC (11/13/16) Colostomy (~2006) TEMP W/ REVISION Excision, Lipoma (05/19/16) posterior neck Hernia Repair, Incisional KNEE REPAIR RIGHT RESECTION ANGIOFIBROMA;RIGHT FOOT 02/04/18 Stented coronary artery (Acute) [place] [facility] [place] of old stent- Social History Smoking/Tobacco Use Status: Former Tobacco Use Quit Date: 05/25/19 Tobacco: How many years used: 60 Quit status: has quit before Second Hand Exposure: Yes Alcohol Intake: former Drug use: Never Substance use type: does not use Details: former smoker - quit May 2019 Caregiver/Support person: No Household members: none Housing: house Communication Needs: Hard of Hearing Do you need help understanding health information?: Rarely Pets and animals: No Sexually active: No Current gender identity: male What is your relationship status?: How often do you talk on the phone with friends or family?: decline to answer How often do you get together with friends or relatives?: decline to answer How often do you attend scientologist or latter day services?: decline to answer Do you belong to any clubs or organized social groups?: decline to answer Panel score (0-1 are the most socially isolated patients): 0 What type of physical activity do you participate in: decline to answer Duration: decline to answer Frequency: decline to answer Monika/Anglican: None Special monika needs: No Seatbelt use: sometimes Helmet use: No Drive intox or ride w/intox motorcycle 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 driver: No Do you feel safe at home: Yes Do you feel safe in your relationship?: Yes Additional Social history: twice; lives alone in [facility]; has 4 grown children;3 daughters, 1 son Exam Const General: cooperative, healthy appearing, comfortable, no acute distress and well developed Nutritional Appearance: well nourished and overweight Orientation: alert, awake and oriented x3 HENMT Head: normal to inspection Ears: hearing grossly normal bilaterally Mouth: moist mucous membranes Chest Chest: normal inspection of the chest, normal palpation of entire chest wall and no crepitus Resp Effort & Inspection: normal respiratory effort, able to speak in complete sentences and no respiratory distress Auscultation: clear to auscultation bilaterally, no rales, no rhonchi and no wheezes Cardio Rate: regular rate Rhythm: regular rhythm Heart Sounds: S1 normal and S2 normal GI Inspection: normal to inspection, no edema, non-distended, incision (well healed) and obesity Palpation: soft, no hepatosplenomegaly, not firm, no guarding, not rigid and tender in the epigastrum Auscultation: normal bowel sounds Back/Spine/Pelvis Back: no CVA tenderness Thoracic/Lumbar Spine: thoracic and lumbar spine normal to inspection Skin General skin exam: no rashes or lesions noted Trauma: no lacerations or abrasions Neuro General: alert, awake and oriented x3 Cognition: normal cognition Speech: speech normal Gait: normal gait Extrem General: normal to inspection, normal capillary refill, no pedal edema, no calf tenderness and normal gait Psych Appearance: grossly normal and well kempt Mental Status: mental status grossly normal Speech and Movement: speech and movement normal
[2019-11-14] MEDS: Normal Saline Flush 10 ML SYR IVP (20:28)
--- NOTE | 2019-11-14 20:30 | DI.RAD_ITS ---
EXAM: XR CHEST 2V PA LATERAL CHEST PAIN: TECHNIQUE: 2D digital imaging was performed. COMPARISON: CHEST 2 VIEWS PA,LAT from 11/21/2017 FINDINGS: MEDIASTINUM: Normal. HEART: Stable mild cardiomegaly. PULMONARY VASCULATURE: Mild pulmonary venous congestion. Hyperinflation of the lungs which may repre sent underlying COPD. LUNGS: Interstitial prominence throughout the lungs. Linear infiltrates in the lung bases which may represent atelectasis, scarring or infection. PLEURAL SPACE: No pleural effusion or pneumothorax. BONE:Degenerative changes in the lungs. OTHER FINDINGS:Normal. IMPRESSION: 1. Mild cardiomegaly and pulmonary venous congestion. 2. Opacities in the lung bases which may represent atelectasis, scarring or pneumonia. DATA REPOSITORY: RADIATION DOSE DELIVERED:
[2019-11-14 20:43] LABS: Abs Immature Grans 0.02 k/cumm (0.0-0.09); Absolute Basophil Count 0.06 k/cumm (0.0-0.2); Absolute Eosinophil Count 0.49 k/cumm (0.0-0.7); Absolute Lymphocyte Count 2.35 k/cumm (1.2-3.4); Absolute Monocyte Count 1.09 k/cumm (0.11-0.7); Absolute Neutrophil Count 3.85 k/cumm (1.2-6.7); Basophils % 0.8; Eosinophils % 6.2; HCT 44.6 % (40.0-50.0); HGB 15.3 g/dL (13.5-17.5); Immature Grans % 0.3 %; Lymphocytes % 29.9; Mean Corp. HGB Concentration 34.3 g/dL (32.0-36.0); Mean Corpuscular Hemoglobin 31.2 pg (27.0-33.0); Mean Platelet Volume 11.6 fL (8.0-11.0); Monocytes % 13.9; Neutrophils % 48.9; Platelet Count 243 x1000/uL (130-400); RBC Distribution Width 13.6 % (11.8-14.1); White Blood Cell Count 7.86 k/cumm (4.4-10.8)
[2019-11-14 21:10] LABS: ALT 42 U/L (16-63); AST 21 U/L (15-37); Albumin 3.7 g/dL (3.4-5.0); Alkaline Phosphatase 68 U/L (46-116); Anion Gap 10.3 mmol/L (3-11); BUN 29 mg/dL (7-18); Bilirubin, Total 0.3 mg/dL (0.2-1.0); CO2 24.7 mmol/L (21.0-32.0); CREATININE 1.37 mg/dL (0.70-1.30); Calcium 9.4 mg/dL (8.5-10.1); Chloride 105 mmol/L (98-107); Estimated GFR 51.08 (mL/min/1.73m2); Glucose 203 mg/dL (74-106); NT-proBNP 109 pg/mL (<300); Sodium 140 mmol/L (136-145); Total Protein 7.2 g/dL (6.4-8.2)
[2019-11-14 21:14] LABS: Troponin I < 0.05 ng/Ml (<0.06)
--- NOTE | 2019-11-14 21:16 | DI.VRAD_ITS ---
PROCEDURE INFORMATION: Exam: XR Chest, 2 Views Exam date and time: 11/14/2019 8:58 PM Age: 74 years old Clinical indication: Type not specified; Patient HX: Chest pain for 3 hours TECHNIQUE: Imaging protocol: XR of the chest Views: 2 views. COMPARISON: CR CHEST 2 VIEWS PA,LAT 11/21/2017 7:46 PM FINDINGS: Lungs: There are increased bibasilar opacities, right side greater than left. There is mild hyperinflation with prominent interstitial markings. There is mild pulmonary vascular congestion. Pleural space: No pleural effusion or pneumothorax. Heart/Mediastinum: The heart is enlarged, similar to prior. Mediastinum stable in appearance. Bones/joints: There are mild degenerative changes. IMPRESSION: 1. Cardiomegaly and mild pulmonary vascular congestion. 2. Bibasilar atelectasis or infiltrate, right greater than left. Dictated and Authenticated by: Davis Amador MD. Ordering:WALKER Chavez MD
[2019-11-14 21:36] LABS: Lipase 177 U/L (73-393)
--- NOTE | 2019-11-14 21:39 | NUR.NOTE ---
Nursing Note: Pt ambulated to and from bathroom on room air. Oxygen saturation 85%. Pt states that this level of [place] is baseline for him. Saturation recovered to low 90's on room air with rest.
[2019-11-15 00:03] VITALS: BP 138/81; PULSE 67; PULSE 73; RESP 17; O2SAT 86
[2019-11-15 00:03] LABS: Troponin I < 0.05 ng/Ml (<0.06)
[2019-11-15 00:13] VITALS: BP 138/81; PULSE 67; RESP 17; TEMP 36.6; O2SAT 86
== END 2019-11-15 00:15 | disposition home or self-care (01) ==
PROVIDERS: Emergency Provider Physician Assistant; PCP Family Medicine
DX: R07.89 Other chest pain (principal); R10.13 Epigastric pain; I25.2 Old myocardial infarction; E11.9 Type 2 diabetes mellitus without complications; I10 Essential (primary) hypertension; Z79.4 Long term (current) use of insulin
CPT/HCPCS: 80053; 83690; 93005; 99284; 71046; 83735; 83880; 84484; 85025; 93010; 99283

== ENCOUNTER 2019-11-21 09:00 | Outpatient (RCR) | payer SELFPAY | END 2019-12-12 23:59 | disposition home or self-care (01) | LOC: CR 09:00 | PROVIDERS: PCP Family Medicine; Visit Provider Family Medicine | DX: I25.2 Old myocardial infarction (principal); Z95.5 Presence of coronary angioplasty implant and graft; Z51.89 Encounter for other specified aftercare ==

== ENCOUNTER 2019-12-19 09:57 | Outpatient (CLI) | payer MEDICARE, SELFPAY ==
--- NOTE | 2019-12-19 16:15 | DI.RAD_ITS ---
EXAM: XR LUMBAR SPINE COMPLETE CLINICAL HISTORY: Low back pain, M54.5 TECHNIQUE: COMPARISON: No exams were available for comparison FINDINGS: Five views were obtained. There are very prominent hypertrophic degenerative changes involving the v ertebral endplates and facet joints throughout the lumbar spine, with large lateral osteophytes at L3 -4 on the left and L4-5 on the right. There is disc space narrowing at L3-4 L4-5 and L5-S1 consisten t with disc degeneration. No evidence of acute fracture. SI joints show degenerative changes. No g ross spondylolysis or spondylolisthesis. IMPRESSION: Severe hypertrophic degenerative changes as described above. Multilevel disc degeneration noted as w ell. No evidence of acute fracture.
== END 2019-12-19 10:17 ==
PROVIDERS: PCP Family Medicine; Visit Provider Urology
DX: M54.5 Low back pain (principal); M51.37 Other intervertebral disc degeneration, lumbosacral region; M47.817 Spondylosis without myelopathy or radiculopathy, lumbosacral region; N40.1 Benign prostatic hyperplasia with lower urinary tract symptoms; J44.9 Chronic obstructive pulmonary disease, unspecified; Z87.891 Personal history of nicotine dependence
CPT/HCPCS: 99213; 72110

== ENCOUNTER → 2019-12-19 15:49 | Outpatient (BNVA) | payer MEDICARE, SELFPAY | PROVIDERS: PCP Family Medicine; Referring Provider Family Medicine; Visit Provider Urology | DX: N40.1 Benign prostatic hyperplasia with lower urinary tract symptoms (principal); J44.9 Chronic obstructive pulmonary disease, unspecified; Z87.891 Personal history of nicotine dependence | CPT/HCPCS: 99213 ==

== ENCOUNTER 2020-01-16 02:03 | Outpatient (CLI) | payer MEDICARE, SELFPAY ==
--- NOTE | 2020-01-16 07:15 | DI.MRI_ITS ---
EXAM: MR LUMBAR SPINE WO CLINICAL HISTORY: low back pain with rt leg weakness,acute, m54.5. TECHNIQUE: Multiplanar multisequence MRI was performed. COMPARISON: XR LUMBAR SPINE COMPLETE from 12/19/2019 FINDINGS: The conus medullaris appears normal. Degenerative signal changes are seen in the vertebral endplates at L3-4, L4-5 and L5-S1. T11-12 and T12-L1 levels are unremarkable. There is there are small endplate osteophytes and minimal disc bulging at L1-2 and L2-3. At L3-4, there is loss of disc height eccentric toward the left where there are prominent endplate os teophytes. There are mild facet joint degenerative changes. There is moderate left and mild right n eural foraminal narrowing. There is slight central canal stenosis. At L4-5 there is disc narrowing eccentric toward the right where there are prominent right-sided oste ophytes. There are also prominent facet joint degenerative changes. There is severe bilateral neura l foraminal narrowing and mild to moderate central canal stenosis. At L5-S1, there are moderate facet joint degenerative changes and ligamentous hypertrophy. There are small endplate osteophytes. There is moderate to severe bilateral neural foraminal narrowing but no significant central canal stenosis. IMPRESSION: Degenerative disc changes and facet degenerative changes from L3-4 through L5-S1 causing bilateral n eural foraminal narrowing, greater at L4-5. There is [id number] central canal stenosis at this level as well. No disc herniation is seen at any level. DATA REPOSITORY:
== END 2020-01-16 02:23 ==
PROVIDERS: PCP Family Medicine; Visit Provider Family Medicine
DX: M54.5 Low back pain (principal); R29.898 Other symptoms and signs involving the musculoskeletal system; M51.37 Other intervertebral disc degeneration, lumbosacral region
CPT/HCPCS: 72148

== ENCOUNTER 2020-02-21 01:11 | Outpatient (RCR) | payer MEDICARE, SELFPAY ==
[2020-02-21] VITALS (8 sets, daily range): BP systolic 122–147; BP diastolic 69–88; PULSE 55–64; RESP 17–19; TEMP 36–36.8; O2SAT 87–94
[2020-02-21] MEDS: Normal Saline Flush 10 ML SYR IVP (07:35)
[2020-02-21] MEDS: Acetaminophen 325 MG TAB 650 MG PO (07:35)
[2020-02-21] MEDS: diphenhydrAMINE 25 MG CAP PO (07:35)
[2020-02-21] MEDS: methylPREDNISolone SUCC 125 MG VIAL 100 MG IV (07:35)
== END 2020-03-12 23:59 | disposition home or self-care (01) ==
LOC: INF 01:11
PROVIDERS: PCP Family Medicine; Visit Provider Family Medicine
DX: M06.9 Rheumatoid arthritis, unspecified (principal)
CPT/HCPCS: 96365; 96366; 96374; 96375; 96413; 96415; J2930; J9312

== ENCOUNTER 2020-02-26 02:08 | Outpatient (CLI) | payer MEDICARE, SELFPAY ==
[2020-02-26 13:21] LABS: Hemoglobin A1C 7.1 % (3.8-5.6)
[2020-02-26 13:28] LABS: CREATININE 1.17 mg/dL (0.70-1.30)
== END 2020-02-26 02:28 ==
PROVIDERS: PCP Family Medicine; Visit Provider Family Medicine
DX: E11.65 Type 2 diabetes mellitus with hyperglycemia (principal)
CPT/HCPCS: 36415; 82565; 83036

== ENCOUNTER 2020-03-06 13:48 | Outpatient (CLI) | payer MEDICARE, SELFPAY ==
--- NOTE | 2020-03-06 13:00 | DI.RAD_ITS ---
EXAM: XR KNEE RT 3V AP,LAT,MARCUS CLINICAL HISTORY: right knee pain TECHNIQUE: COMPARISON: No exams were available for comparison FINDINGS: Three views were obtained. There is marked narrowing of the medial tibiofemoral cartilaginous joint space. Mild marginal osteophyte formation noted at multiple sites involving joints of knee. There i s an apparent subchondral cyst of the proximal tibia seen anteriorly in the central portion of the ti richar, posterior subchondral cyst may also be present as well.. No other significant bony abnormality seen. IMPRESSION: Severe DJD medial tibiofemoral joint.
--- NOTE | 2020-03-06 13:45 | DI.RAD_ITS ---
EXAM: XR HIP PELVIS ADULT BL CLINICAL HISTORY: hip pain TECHNIQUE: COMPARISON: No exams were available for comparison FINDINGS: Five views were obtained. The cartilaginous joint spaces of the hips appear fairly well maintained. There is moderate marginal osteophyte formation the acetabula femoral heads bilaterally. No other s ignificant bony abnormality seen. IMPRESSION: Moderate DJD both hips.
== END 2020-03-06 14:08 ==
PROVIDERS: PCP Family Medicine; Referring Provider Family Medicine; Visit Provider Physician Assistant Surgical
DX: M25.551 Pain in right hip (principal); M16.0 Bilateral primary osteoarthritis of hip; M25.561 Pain in right knee; M17.11 Unilateral primary osteoarthritis, right knee; M54.5 Low back pain; G89.29 Other chronic pain; M54.16 Radiculopathy, lumbar region; M48.061 Spinal stenosis, lumbar region without neurogenic claudication; J44.9 Chronic obstructive pulmonary disease, unspecified; Z87.891 Personal history of nicotine dependence
CPT/HCPCS: 73521; 73562; 99205; 99215

== ENCOUNTER 2020-05-29 04:25 | Outpatient (CLI) | payer MEDICARE, SELFPAY ==
[2020-05-29 12:53] LABS: ALT 20 U/L (16-63); AST 14 U/L (15-37); Albumin 3.4 g/dL (3.4-5.0); Alkaline Phosphatase 78 U/L (46-116); Anion Gap 8.8 mmol/L (3-11); BUN 18 mg/dL (7-18); Bilirubin, Total 0.6 mg/dL (0.2-1.0); C-Reactive Protein 0.55 mg/dL (0.0-0.3); CO2 26.2 mmol/L (21.0-32.0); CREATININE 0.98 mg/dL (0.70-1.30); Calcium 9.7 mg/dL (8.5-10.1); Chloride 105 mmol/L (98-107); Glucose 90 mg/dL (74-106); Potassium 4.4 mmol/L (3.5-5.1); Sodium 140 mmol/L (136-145); Total Protein 6.6 g/dL (6.4-8.2)
[2020-05-29 13:03] LABS: Hemoglobin A1C 6.4 % (<5.7)
[2020-05-29 13:07] LABS: Abs Immature Grans 0.03 10^3/uL (0.0-0.06); Absolute Basophil Count 0.06 10^3/uL (0.0-0.2); Absolute Eosinophil Count 0.24 10^3/uL (0.0-0.7); Absolute Lymphocyte Count 1.48 10^3/uL (1.2-3.4); Absolute Monocyte Count 0.83 10^3/uL (0.1-0.8); Absolute Neutrophil Count 6.38 10^3/uL (1.2-6.7); Basophils % 0.7; Eosinophils % 2.7; HCT 47.3 % (40.0-50.0); HGB 15.6 g/dL (13.5-17.5); Immature Grans % 0.3; Lymphocytes % 16.4; MCH 30.2 pg (27.0-33.0); MCV 91.5 fL (80-95); MPV 11.4 fL (8.0-11.0); Monocytes % 9.2; Neutrophils % 70.7; Nucleated RBC 0 %; Platelet Count 249 10^3/uL (130-400); RBC 5.17 10^6/uL (4.36-5.78); RDW 14.9 % (11.8-14.1); RDW-SD 50.1 fL; WBC 9.02 10^3/uL (4.4-10.8)
[2020-05-29 13:55] LABS: ESR 17 mm/hr (1-20)
[2020-05-30 10:59] LABS: IgG 868 mg/dL (610-1,616)
== END 2020-05-29 04:45 ==
PROVIDERS: PCP Family Medicine; Visit Provider Internal Medicine Rheumatology
DX: M05.79 Rheumatoid arthritis with rheumatoid factor of multiple sites without organ or systems involvement (principal); Z79.899 Other long term (current) drug therapy; R73.9 Hyperglycemia, unspecified
CPT/HCPCS: 36415; 80053; 82784; 85652; 83036; 85025; 86140

== ENCOUNTER 2020-05-31 02:59 | Outpatient (CLI) | payer MEDICARE, SELFPAY ==
--- NOTE | 2020-05-31 07:30 | DI.CTLCSR_ITS ---
EXAM: CT CHEST LUNG CANCER SCREEN CLINICAL HISTORY: Screening for lung cancer,CURRENT SMOKER,F17.210 TECHNIQUE: COMPARISON: CT CT CHEST PE CTA from 05/25/2019 FINDINGS: CT examination chest was performed utilizing low-dose noncontrast lung cancer screening protocol. Images obtained through the upper show unremarkable appearance of visualized portions of liver, splee n, adrenals, kidneys, and pancreas. No mediastinal hilar adenopathy. Tracheobronchial tree appears intact. Thoracic aorta is of normal diameter. No pleural effusion or pneumothorax. There are severe pulmonary emphysematous changes multiple pulmo nary bulla. There are fibrotic changes and honeycombing in the lung bases. There is a 7 x 4 millimeter in diameter nodule of the medial aspect of the right upper pulmonary lobe . This is unchanged from prior examination of May 2019. No new nodule identified. Mild cardiomegaly and coronary artery calcification noted. IMPRESSION: Lung RADS Cat 2 - Benign Appearance / Behavior: Nodules with a very low likelihood of becoming a clin ically active cancer due to size or lack of growth Continue annual screening with LDCT in 12 months. RADIATION DOSE DELIVERED: 92.07mGy.cm Total DLP
== END 2020-05-31 03:19 ==
PROVIDERS: PCP Family Medicine; Visit Provider Family Medicine
DX: F17.210 Nicotine dependence, cigarettes, uncomplicated (principal); R91.8 Other nonspecific abnormal finding of lung field
CPT/HCPCS: G0297

== ENCOUNTER 2020-06-12 03:44 | Outpatient (RCR) | payer MEDICARE, SELFPAY | END 2020-06-12 23:59 | disposition home or self-care (01) | LOC: INF 03:44 | PROVIDERS: PCP Family Medicine; Visit Provider Family Medicine | DX: R69 Illness, unspecified (principal) ==

== ENCOUNTER 2020-06-19 01:03 | Outpatient (RCR) | payer MEDICARE, SELFPAY ==
[2020-06-19] VITALS (8 sets, daily range): BP systolic 114–150; BP diastolic 69–82; PULSE 55–72; RESP 17–19; TEMP 36–36.5; O2SAT 90–94
[2020-06-19] MEDS: methylPREDNISolone SUCC 125 MG VIAL 100 MG IVP (08:18)
[2020-06-19] MEDS: Acetaminophen 325 MG TAB 650 MG PO (08:19)
[2020-06-19] MEDS: diphenhydrAMINE 25 MG CAP PO (08:19)
[2020-06-19] MEDS: Normal Saline Flush 10 ML SYR IVP (08:52)
[2020-06-19] MEDS: riTUXimab-PVVR 1,000 MG in Normal Saline 150 ML 62.5 MG IVPB (08:52)
== END 2020-07-13 23:59 | disposition home or self-care (01) ==
LOC: INF 01:03
PROVIDERS: PCP Family Medicine; Visit Provider Nurse Practitioner Acute Care
DX: M06.9 Rheumatoid arthritis, unspecified (principal)
CPT/HCPCS: 96365; 96366; J2930; Q5119

== ENCOUNTER → 2020-07-11 09:54 | Outpatient (BNVA) | payer MEDICARE, SELFPAY | PROVIDERS: PCP Family Medicine; Referring Provider Family Medicine; Visit Provider Physical Therapy Assistant | DX: Z12.11 Encounter for screening for malignant neoplasm of colon (principal); Z86.010 Personal history of colon polyps ==

== ENCOUNTER 2020-07-22 07:52 | Outpatient (CLI) | payer MEDICARE, SELFPAY ==
[2020-07-24 10:08] LABS: SARS-CoV-2 RNA Not Detected (NotDetected); SARS-CoV-2 RNA Source Nasal/Nares
== END 2020-07-22 08:12 ==
PROVIDERS: PCP Family Medicine; Visit Provider Surgery
DX: Z11.59 Encounter for screening for other viral diseases (principal); Z01.818 Encounter for other preprocedural examination
CPT/HCPCS: U0003

== ENCOUNTER 2020-07-23 01:40 | Outpatient (CLI) | payer MEDICARE, SELFPAY ==
[2020-07-23 12:46] LABS: ALT 24 U/L (16-63); AST 9 U/L (15-37); Albumin 3.6 g/dL (3.4-5.0); Alkaline Phosphatase 78 U/L (46-116); Bilirubin, Total 0.3 mg/dL (0.2-1.0); Calculated LDL 36 mg/dL (<100); Cholesterol 88 mg/dL (<200); HDL Cholesterol 43 mg/dL (40-60); Total Protein 6.9 g/dL (6.4-8.2); Triglyceride 49 mg/dL (<150)
[2020-07-23 12:55] LABS: Bilirubin, Direct 0.11 mg/dL (0.00-0.20)
== END 2020-07-23 02:00 ==
PROVIDERS: Internal Medicine Cardiovascular Disease; PCP Family Medicine; Visit Provider Internal Medicine
DX: E78.2 Mixed hyperlipidemia (principal)
CPT/HCPCS: 36415; 80061; 80076

== ENCOUNTER 2020-07-25 12:00 | Day surgery (SDC) | payer MEDICARE, SELFPAY ==
[2020-07-25 12:09] VITALS: BP 128/75; PULSE 60; RESP 24; TEMP 36.7; O2SAT 94
[2020-07-25] MEDS: Lactated Ringers 1,000 ML 80 ML IV (12:46)
--- NOTE | 2020-07-25 15:16 | BOWEL_PTH ---
PATIENT: Bobby Cooley Sr LOC: [facility] U#:[id number] AGE/SX: 74/M ROOM: RE07/25/[address]: Kaylen Miles : 1945 BED: DIS: 07/25/2020 SPEC #: [id number] RECD: 07/25/20 16:46 STATUS: ANURADHA REQ #: [id number] HARPREET: 07/25/20 15:[address]: Kaylen Miles DEPT: Surgical Specimen RECD BY: Leona Garcia ENTERED: 07/25/20 16:51 SP TYPE: Bowel OTHR DR: Mike Burns MD Tissues: 1 - BIOPSY BOWEL 2 - BIOPSY BOWEL 3 - BIOPSY BOWEL 4 - BIOPSY BOWEL 5 - BIOPSY BOWEL Procedures: GROSS AND MICRO LEVEL 4 Comments: [id number] ([id number] [facility] [place]
--- NOTE | 2020-07-25 15:54 | COLE_ITS ---
Date of service: 07/25/20 Time of Service: 15:54 Colonoscopy Report Date of procedure: 07/25/20 Pre-op diagnosis general: A polyps Post-op diagnosis procedure note: other Procedure: polypectomy x10 8-hot 2 cold Surgeon: Kaylen Miles Anesthesia proc note operative: GETA Estimated blood loss (mL): 2 Pathology: other Complications: None Disposition: same day Prep: Miralax/Dulcolax Retraction Time: 45 mins Procedure Description: After informed consent was obtained the patient was taken to the procedure room and placed in a left decubitous position. Monitors were applied and a time out was done. The patients name, date of , procedure, allergies to medications and metal in their body was reviewed. The patient was then sedated. Once sedated and comfortable a rectal exam was done. External exam was normal. Internal exam revealed a normal sphincter tone and no palpable masses. The prostate enlarged. The scope was then introduced and retrofelexed. No internal hemorrhoids were identified. The scope was then advanced to the cecum w/ out difficulty. The TI and appendiceal orifice were identified. The prep adequate. The scope was then slowly retracted over 45 mins minutes back into the rectum. The mucosa appears pink and healthy. He has moderate diverticula confined to the sigmoid colon. There is no signs of active bleeding or infection. He had polyps cecum x2. These are removed with a hot biting forcep. they are a 0-IIa. Polyps at 60 cm x 1 with a cold biter 0-IIa . polyps at 50 cm x 4 with a hot biter. 0- Ip Polyps at 40 cm x 2 removed with a hot biter and one polyp x1 at 30 cm with cold biter. both of these are 0-Ip All specimens are retrieved and no bleeding was noted. These all appear to be adenomatous polyps under NBI. The scope was removed and the patient was woken up and taken back to Same day surgery in stable condition. The patient tolerated the procedure well and there were no immediate complications. Follow up: The patient should follow up in 1-2 years, path pd, and if he is healthy for anesthesia; unless they develop changes in bowel habits or other new gastrointestinal complaints.
--- NOTE | 2020-07-25 16:00 | PDOC.DSDIS_ITS ---
Discharge Plan Disposition Patient Disposition: HOME Condition: Good Discharge Details Reason For Visit: colon scope and polyp removal Attending Provider: aKylen Miles Primary Care Provider: Mike Burns Home Meds and New Rx's Prescriptions: Continued albuterol sulfate [Ventolin HFA] 90 mcg/actuation HFA aerosol inhaler 2 inh INHALATION Q6H PRN (Reason: bronchospasm) Qty: 8.5 RF: 3 ezetimibe 10 mg tablet 10 mg PO DAILY Qty: 30 RF: 11 fluticasone propionate 50 mcg/actuation spray,suspension 2 spray NS DAILY Qty: 1 RF: 8 (DME) pen needle, diabetic [Advocate Pen Needle] 33 gauge x 5/32 needle See Rx Instructions .ROUTE .MEDSUPPLY Qty: 100 RF: 3 spironolactone 25 mg tablet 12.5 mg PO DAILY Qty: 45 RF: 3 nitroglycerin [Nitrostat] 0.4 mg tablet, sublingual 0.4 mg Sublingual PRN Qty: 25 RF: 11 budesonide 0.5 mg/2 mL suspension for nebulization 0.5 mg Inhalation BID Qty: 60 RF: 11 pantoprazole 40 mg tablet,delayed release (DR/EC) 40 mg PO DAILY Qty: 90 RF: 3 losartan 50 mg tablet 100 mg PO DAILY Qty: 180 RF: 3 (DME) Space Chamber Plus 1 EACH spacer 1 ea Miscellaneous PRN Qty: 1 RF: 0 Remicade 100 MG recon soln 1,000 mg IV .[id number] RF: 0 albuterol sulfate [Proventil HFA] 90 mcg/actuation HFA aerosol inhaler 2 puff IH Q6H PRN (Reason: shortness of breath or wheezing) Qty: 6.7 RF: 5 amlodipine 10 mg tablet 10 mg PO HS Qty: 90 RF: 3 atorvastatin 80 mg tablet 80 mg PO QHS Qty: 90 RF: 3 (DME) FreeStyle Test Strip 1 strip Miscellaneous DAILY Qty: 300 RF: 4 (DME) lancets [FreeStyle Lancets] 28 gauge misc 1 ea Intradermal DAILY Qty: 300 RF: 4 epinephrine [EpiPen 2-Tom] 0.3 mg/0.3 mL auto-injector 0.3 mg IM ONCE PRN (Reason: anaphylaxis) Qty: 1 RF: 1 tamsulosin 0.4 mg capsule 0.4 mg PO DAILY Qty: 30 RF: 12 Trulicity 0.75 mg/0.5 mL pen injector 0.75 mg SC QWEEK Qty: 6 RF: 3 gabapentin 300 mg capsule 300 mg PO TID Qty: 90 RF: 5 clopidogrel [Plavix] 75 mg tablet 75 mg PO DAILY Qty: 90 RF: 4 Chantix Starting Month Box 0.5 mg (11)- 1 mg (42) tablets,dose pack 1 dose pk PO DAILY AM Qty: 53 RF: 0 acetaminophen 650 MG tablet extended release 650 mg PO Q8H PRN (Reason: Pain) Qty: 20 RF: 0 Jardiance 25 mg Tablet 25 mg PO DAILY RF: 0 insulin glargine 100 unit/mL (3 mL) insulin pen 54 unit SC HS RF: 0 Discontinued aspirin 81 MG tablet,chewable 81 mg PO DAILY RF: 0 Discharge Instructions Additional Instructions: Findings: x10 polyps no asa/plavix x 7days low fiber diet for 72 hrs no lifting over 10#'s x 72 hrs Follow up: repeat scope in 1-2 yrs if still healthy for anesthesia. Please call if you develop: fevers >101.5 Nausea or Vomiting Abdominal pain that is not transient DAY SURGERY UNIT POST COLONOSCOPY INSTRUCTIONS 1. Because there will be medication in your system for the next 24 hours, you may feel a little sleepy. Your coordination will be affected. Therefore: a. Do not drive or operate dangerous equipment for 24 hours. b. Do not drink alcohol beverages for 24 hours (not even beer). c. Plan to go home and rest for the day. 2. Generally there are no restrictions on your activity after a day or so has go ne by, but you may feel a bit fatigued for a few days. 3 After you arrive home you may have a light meal and return to a normal diet as you can tolerate it without feeling sick to your stomach. 4. After surgery, you may feel pain or discomfort. This should be only transient, but if it persists please contact your doctor. 5. If there are any questions regarding the findings of your procedure, please feel free to contact your doctor. 6. If you are unable to contact your doctor with a problem, contact the hospital at [phone]. 7. Continue all your regular medications unless directed otherwise. I understand the above instructions and have no questions. Signature of Patient or Responsible Adult Escort Date/Time Name of Responsible Adult Escort Signature of Nurse Date/Time Activity:: no strenuous activity or lifting over 10#'s x 72 hrs Diet:: low fiber diet x 24 hrs Discharge Orders Discharge Orders: Discharge Order (Routine); Ordered 07/25/20 Ordered By: Kaylen Miles DS: Diagnosis Discharge Diagnosis (1) Diverticula of colon: Status: Acute (2) Adenomatous polyps: Status: Acute
[2020-07-25 16:25] VITALS: BP 123/78; PULSE 52; RESP 20; TEMP 36.5; O2SAT 95
== END 2020-07-25 16:42 | disposition home or self-care (01) ==
PROVIDERS: PCP Family Medicine; Visit Provider Surgery
PROC: 0DJD8ZZ Inspection of Lower Intestinal Tract, Via Natural or Artificial Opening Endoscopic (ICD-10-PCS; CPT 45378; principal; 2020-07-25 13:45)
DX: Z12.11 Encounter for screening for malignant neoplasm of colon (principal); D12.0 Benign neoplasm of cecum; D12.5 Benign neoplasm of sigmoid colon; K63.5 Polyp of colon; J44.9 Chronic obstructive pulmonary disease, unspecified; K21.9 Gastro-esophageal reflux disease without esophagitis; E11.9 Type 2 diabetes mellitus without complications; I10 Essential (primary) hypertension
CPT/HCPCS: 45384; 45380; 88305; J2001

== ENCOUNTER → 2020-08-06 09:51 | Outpatient (BNVA) | payer MEDICARE, SELFPAY | PROVIDERS: PCP Family Medicine; Referring Provider Family Medicine; Visit Provider Urology | DX: N40.1 Benign prostatic hyperplasia with lower urinary tract symptoms (principal); J44.9 Chronic obstructive pulmonary disease, unspecified; E11.9 Type 2 diabetes mellitus without complications; I10 Essential (primary) hypertension; F17.210 Nicotine dependence, cigarettes, uncomplicated | CPT/HCPCS: 99213 ==

== ENCOUNTER 2020-08-15 02:36 | Outpatient (CLI) | payer MEDICARE, SELFPAY ==
[2020-08-17 16:37] LABS: COVID-19 RT-PCR Result NEGATIVE (Negative)
== END 2020-08-15 02:56 ==
PROVIDERS: PCP Family Medicine; Visit Provider Family Medicine
DX: Z20.828 Contact with and (suspected) exposure to other viral communicable diseases (principal)
CPT/HCPCS: U0003

== ENCOUNTER 2020-10-23 02:35 | Outpatient (RCR) | payer MEDICARE, SELFPAY ==
[2020-10-23] VITALS (8 sets, daily range): BP systolic 127–146; BP diastolic 73–86; PULSE 55–74; RESP 18–19; TEMP 36.6–36.9; O2SAT 91–96
[2020-10-23] MEDS: diphenhydrAMINE 25 MG CAP PO (07:39)
[2020-10-23] MEDS: Normal Saline Flush 10 ML SYR IVP (07:40)
[2020-10-23] MEDS: Acetaminophen 325 MG TAB 650 MG PO (07:40)
[2020-10-23] MEDS: methylPREDNISolone SUCC 125 MG VIAL 100 MG IVP (07:40)
[2020-10-23] MEDS: riTUXimab-PVVR 1,000 MG in Normal Saline 150 ML 62.5 MG IVPB (08:17)
== END 2020-11-10 23:59 | disposition home or self-care (01) ==
LOC: INF 02:35
PROVIDERS: PCP Family Medicine; Visit Provider Nurse Practitioner Acute Care
DX: M06.9 Rheumatoid arthritis, unspecified (principal)
CPT/HCPCS: 96365; 96366; J2930; Q5119

== ENCOUNTER 2020-11-30 16:54 | Emergency (ER) | payer MEDICARE, SELFPAY ==
--- NOTE | 2020-11-30 16:55 | ED.GENADUL_ITS ---
Discharge Plan Disposition Patient Disposition: HOME Condition: Stable Discharge Details Clinical Impression: Finger fracture, Subungual hematoma of finger Primary Care Provider: Mike Burns ED Provider: Teo Andrade Home Meds and New Rx's Prescriptions: Continued albuterol sulfate [Ventolin HFA] 90 mcg/actuation HFA aerosol inhaler 2 inh INHALATION Q6H PRN (Reason: bronchospasm) Qty: 8.5 RF: 3 ezetimibe 10 mg tablet 10 mg PO DAILY Qty: 30 RF: 11 fluticasone propionate 50 mcg/actuation spray,suspension 2 spray NS DAILY Qty: 1 RF: 8 nitroglycerin [Nitrostat] 0.4 mg tablet, sublingual 0.4 mg Sublingual PRN Qty: 25 RF: 11 amoxicillin 875 mg tablet 875 mg PO BID Qty: 14 RF: 0 (DME) lancets [FreeStyle Lancets] 28 gauge misc 1 ea Intradermal DAILY Qty: 300 RF: 4 tamsulosin 0.4 mg capsule 0.4 mg PO DAILY Qty: 30 RF: 12 (DME) FreeStyle Test Strip 1 strip Miscellaneous DAILY Qty: 300 RF: 4 losartan 50 mg tablet 100 mg PO DAILY Qty: 180 RF: 3 (DME) Space Chamber Plus 1 EACH spacer 1 ea Miscellaneous PRN Qty: 1 RF: 0 Remicade 100 MG recon soln 1,000 mg IV .[id number] RF: 0 albuterol sulfate [Proventil HFA] 90 mcg/actuation HFA aerosol inhaler 2 puff IH Q6H PRN (Reason: shortness of breath or wheezing) Qty: 6.7 RF: 5 epinephrine [EpiPen 2-Tom] 0.3 mg/0.3 mL auto-injector 0.3 mg IM ONCE PRN (Reason: anaphylaxis) Qty: 1 RF: 1 clopidogrel [Plavix] 75 mg tablet 75 mg PO DAILY Qty: 90 RF: 4 Jardiance 25 mg tablet 25 mg PO DAILY Qty: 90 RF: 3 Chantix Continuing Month Box 1 mg tablet 1 mg PO BID Qty: 60 RF: 2 insulin glargine 100 unit/mL (3 mL) insulin pen 47 unit SC HS Qty: 45 RF: 3 atorvastatin 80 mg tablet 80 mg PO QHS Qty: 90 RF: 3 amlodipine 5 mg tablet 5 mg PO BID Qty: 180 RF: 3 gabapentin 300 mg capsule 300 mg PO TID Qty: 90 RF: 5 budesonide 0.5 mg/2 mL suspension for nebulization 0.5 mg Inhalation BID Qty: 60 RF: 11 Trulicity 0.75 mg/0.5 mL pen injector 0.75 mg SC QWEEK Qty: 6 RF: 3 pantoprazole 40 mg tablet,delayed release (DR/EC) 40 mg PO DAILY Qty: 90 RF: 3 (DME) pen needle, diabetic [Advocate Pen Needle] 33 gauge x 5/32 needle See Rx Instructions .ROUTE .MEDSUPPLY Qty: 100 RF: 3 alcohol swabs [BD Alcohol Swabs] Pads, Medicated 1 pad topical QID PRN (Reason: injection) Qty: 200 RF: 3 acetaminophen 650 MG tablet extended release 650 mg PO Q8H PRN (Reason: Pain) Qty: 20 RF: 0 Discharge Instructions Instructions: Finger Fracture (ED), Subungual Hematoma (ED) Additional Instructions: Wear jesus taping and finger splint until reevaluation with orthopedics sometime next week. I have placed you on the orthopedic list, contact their office on Wednesday to set up an appointment. Rest, elevate, cool compresses every 2 hours for 20 days. Bbid-khx-nmkriem medications as directed for symptomatic control. Please watch for new or worsening symptoms and return to the ER for any shaggy rns. Referrals: Dominik Catherine MD [ [facility] STAFF PHYSICIAN] - Medical Decision Making 75-year-old gentleman, [id number], presents for left fourth finger injury that he sustained just prior to arrival while at home, pinched under a 55 gallon drum. Denies numbness, tingling, weakness. No break in the skin. No additional questions or concerns. Skin intact, no need to update tetanus. Offered digital block. Patient accepted. Subungual hematoma evacuated without difficulty. X-ray obtained, read by me as left fourth distal phalanx fracture. Official read by radiology reveals a dorsally displaced intra-articular fracture at the base of the distal phalanx, fourth finger. Will jesus tape the fourth and fifth digit, apply a volar splint. Will refer to orthopedics. Patient comfortable with this plan, has no additional questions or concerns. Medical Records Medical records reviewed: Yes I reviewed the patient's medical records. HPI General Mode of arrival: ambulatory . Date/Time Provider Initiated Documentation: 11/30/20 16:54 . Limitations to Documentation: no limitations . Information obtained by: patient . HPI Narrative: This is a 75-year-old male, hqlou-sagq-hhcqjsay, presenting for left fourth finger injury. He states that he was attempting to load a 55 gallon drum which used oil and pinched his f lee. He reports the pain is moderate, worse with movement. He denies any other injury. He denies numbness, tingling, weakness. There is no break in the skin. He is noticing that a bruise is beginning to form under his nail. This occurred just prior to arrival. Extensive past medical history that includes BPH, COPD, CVA, diabetes, hypertension, hyperlipidemia. Patient does take Plavix daily. Tetanus last updated 2011 Related Data Home Medications Medication Instructions Recorded Confirmed Space Chamber Plus #1 05/27/15 11/30/20 Remicade 1,000 mg IV .[id number] vial 05/31/15 11/30/20 acetaminophen 650 mg PO Q8H PRN #20 tablet.er 04/30/17 11/30/20 nitroglycerin 0.4 mg sublingual 0.4 mg SUBLINGUAL PRN #25 tab-cap 06/02/19 11/30/20 tablet albuterol sulfate 90 mcg/actuation 2 puff IH Q6H PRN #6.7 gm 08/04/19 11/30/20 aerosol inhaler epinephrine 0.3 mg/0.3 mL 0.3 mg IM ONCE PRN #1 each 12/20/19 11/30/20 injection, auto-injector losartan 50 mg tablet 100 mg PO DAILY #180 tab 02/23/20 11/30/20 clopidogrel 75 mg tablet 75 mg PO DAILY #90 tab 05/21/20 11/30/20 albuterol sulfate 90 mcg/actuation 2 inh INHALATION Q6H PRN #8.5 gm 05/22/20 11/30/20 aerosol inhaler ezetimibe 10 mg tablet 10 mg PO DAILY #30 tab 05/22/20 11/30/20 fluticasone propionate 50 2 spray NS DAILY #1 gm 09/09/20 03/20/21 mcg/actuation nasal spray,suspension empagliflozin 25 mg tablet 25 mg PO DAILY #90 tab 08/20/20 11/30/20 varenicline 1 mg tablet 1 mg PO BID #60 tab 09/09/20 11/30/20 insulin glargine 100 unit/mL (3 47 unit SC HS #45 ml 09/20/20 11/30/20 mL) subcutaneous pen amlodipine 5 mg tablet 5 mg PO BID #180 tab 10/14/20 11/30/20 atorvastatin 80 mg tablet 80 mg PO QHS #90 tab 10/14/20 11/30/20 budesonide 0.5 mg/2 mL suspension 0.5 mg INHALATION BID #60 ml 11/08/20 11/30/20 for nebulization dulaglutide 0.75 mg/0.5 mL 0.75 mg SC QWEEK #6 ml 11/08/20 11/30/20 subcutaneous pen injector gabapentin 300 mg capsule 300 mg PO TID #90 cap 11/08/20 11/30/20 pantoprazole 40 mg tablet,delayed 40 mg PO DAILY #90 tab 11/08/20 11/30/20 release pen needle, diabetic 33 gauge x #100 each 11/08/20 11/30/20 5/32 alcohol swabs 1 pad TOPICAL QID PRN #200 ea 11/15/20 11/30/20 amoxicillin 875 mg tablet 875 mg PO BID #14 tab 11/22/20 11/30/20 blood sugar diagnostic #300 strip 11/22/20 11/30/20 lancets 28 gauge #300 each 11/22/20 11/30/20 tamsulosin 0.4 mg capsule 0.4 mg PO DAILY #30 cap 11/22/20 11/30/20 Previous Rx's Medication Instructions Recorded acetaminophen 650 mg PO Q8H PRN #20 tablet.er 04/30/17 nitroglycerin 0.4 mg sublingual 0.4 mg SUBLINGUAL PRN #25 tab-cap 06/02/19 tablet albuterol sulfate 90 mcg/actuation 2 puff IH Q6H PRN #6.7 gm 08/04/19 aerosol inhaler epinephrine 0.3 mg/0.3 mL 0.3 mg IM ONCE PRN #1 each 12/20/19 injection, auto-injector losartan 50 mg tablet 100 mg PO DAILY #180 tab 02/23/20 clopidogrel 75 mg tablet 75 mg PO DAILY #90 tab 05/21/20 albuterol sulfate 90 mcg/actuation 2 inh INHALATION Q6H PRN #8.5 gm 05/22/20 aerosol inhaler ezetimibe 10 mg tablet 10 mg PO DAILY #30 tab 05/22/20 fluticasone propionate 50 2 spray NS DAILY #1 gm 05/22/20 mcg/actuation nasal spray,suspension empagliflozin 25 mg tablet 25 mg PO DAILY #90 tab 08/20/20 varenicline 1 mg tablet 1 mg PO BID #60 tab 09/09/20 insulin glargine 100 unit/mL (3 47 unit SC HS #45 ml 09/20/20 mL) subcutaneous pen amlodipine 5 mg tablet 5 mg PO BID #180 tab 10/14/20 atorvastatin 80 mg tablet 80 mg PO QHS #90 tab 10/14/20 budesonide 0.5 mg/2 mL suspension 0.5 mg INHALATION BID #60 ml 11/08/20 for nebulization dulaglutide 0.75 mg/0.5 mL 0.75 mg SC QWEEK #6 ml 11/08/20 subcutaneous pen injector gabapentin 300 mg capsule 300 mg PO TID #90 cap 11/08/20 pantoprazole 40 mg tablet,delayed 40 mg PO DAILY #90 tab 11/08/20 release pen needle, diabetic 33 gauge x #100 each 11/08/20 5/32 alcohol swabs 1 pad TOPICAL QID PRN #200 ea 11/15/20 amoxicillin 875 mg tablet 875 mg PO BID #14 tab 11/22/20 blood sugar diagnostic #300 strip 11/22/20 lancets 28 gauge #300 each 11/22/20 tamsulosin 0.4 mg capsule 0.4 mg PO DAILY #30 cap 11/22/20 Allergies Allergy/AdvReac Type Severity Reaction Status Date / Time venom-honey bee Allergy Severe ANAPHYLAXSI Verified 11/30/20 17:05 [bee venom (honey bee)] S Sulfa (Sulfonamide Allergy Unknown unknown Verified 11/30/20 17:05 Antibiotics) leflunomide [From Arava] AdvReac Intermediate DIARRHEA Verified 11/30/20 17:05 metformin AdvReac Intermediate diarrhea Verified 11/30/20 17:05 General STAR: 3 Review of Systems Constitutional Constitutional: Denies weakness Musculoskeletal Musculoskeletal: Reports arthralgias, Denies numbness, Reports stiffness and Denies tingling Integumentary/Breasts Skin/Breast: Denies erythema Neurologic Neurologic: Denies numbness, Denies tingling and Denies weakness [facility] Medical History Acute bilateral low back pain Adenomatous polyps ASCVD (arteriosclerotic cardiovascular disease) (05/05/13) 2 NEW STENTS 04/22 H/O IMI; angioplasty and stent; [place] , 02/11; CVA/TIA BPH loc w urin obs/LUTS Chronic knee pain Chronic obstructive lung disease pulmonary fibrosis on chest xray ongoing tobacco use add back budesonide nebs to see if we can improve cough CVA (cerebral vascular accident) (11/21/17) Depressive disorder Diabetes mellitus (05/05/13) check A1c and creat Diverticula of colon Flank pain Gastroesophageal reflux disease Hyperlipidemia (05/05/13) Hypertension same meds, good BP here today RCA occlusion 05/25/19 [facility] [place] Rheumatoid arthritis (05/05/13) [facility], Dr Leon Surgical History Colonoscopy - MAC (05/16/13) Colonoscopy - MAC (11/13/16) Colostomy (~2006) TEMP W/ REVISION Excision, Lipoma (05/19/16) posterior neck Hernia Repair, Incisional KNEE REPAIR RIGHT RESECTION ANGIOFIBROMA;RIGHT FOOT 02/04/18 Stented coronary artery 05/25/19 [facility]; s/p stent of old stent-KB Family History Mother Essential hypertension Heart disease Stroke Father Stroke Brother Heart disease Family History Diabetes Heart disease Cancer Brother No problems noted. Brother No problems noted. Sister No problems noted. Sister Alcohol abuse Social History Smoking/Tobacco Use Status: Current every day Tobacco Type: cigarettes Tobacco: How many years used: 60 Smoking risk assessment performed?: Yes Alcohol Intake: former Drug use: Never Substance use type: does not use Household members: family Housing: house Communication Needs: Hard of Hearing Do you need help understanding health information?: Often Pets and animals: No Sexually active: No Current gender identity: male What is your relationship status?: How often do you talk on the phone with friends or family?: three or more times per week How often do you attend lutheran or buddhism services?: decline to answer Do you belong to any clubs or organized social groups?: no Panel score (0-1 are the most socially isolated patients): 1 What type of physical activity do you participate in: occasional exercise Duration: 15-30 minutes/day Monika/Catholic: None Special monika needs: No Seatbelt use: sometimes Drive intox or ride w/intox route driver coin machines: No Do you feel safe at home: Yes Do you feel safe in your relationship?: Yes Additional Social history: twice; lives alone in [place]; has 4 grown children;3 daughters, 1 son Exam Const General: cooperative, healthy appearing, comfortable and no acute distress Orientation: alert and awake HENMT Head: normal to inspection, normocephalic and atraumatic Eyes General: appearance normal, both eyes and all related structures Conjunctivae: conjunctivae normal Neck Neck: normal visual inspection, trachea midline and supple Resp Effort & Inspection: normal respiratory effort and able to speak in complete sentences Cardio Rate: regular rate Rhythm: regular rhythm Skin General skin exam: no rashes or lesions noted Neuro General: patient alert, patient awake, moves all extremities and no focal motor deficits Cognition: normal cognition Sensory Exam: no sensory deficits noted Extrem General: capillary refill normal Hand/finger images: 1. Left fourth digit with diffuse mild discomfort to palpation. Skin is intact. There is minimal ecchymosis and swelling distal to the PIP joint. Full range of motion of the MCP and PIP joint. Limited range of motion in the DIP joint .Pt able to partly flex, unable to fully extend. Neuro, vascular. Normal capillary refill. 2. Left fourth digit, small proximal subungual hematoma Other: Previous left thumb distal amputation. Psych Appearance: grossly normal Mental Status: mental status grossly normal Procedures Nail Trephination Time out: Yes Location (finger): left and ring Sterile prep: betadine Method of drainage: nail cautery Procedure successful: Yes Patient tolerated procedure: well Nerve Block Nerve Block 1: Time out performed: Yes Local Anesthetic: Lidocaine 1% Amount of anesthesia used (mL): 4 Side: left Nerve Blocks: digital (4th finger) Procedure Successful: Yes Patient Tolerated Procedure: well Complications: none
[2020-11-30 17:00] VITALS: BP 111/61; PULSE 85; RESP 16; TEMP 36.8; O2SAT 92
--- NOTE | 2020-11-30 17:00 | DI.RAD_ITS ---
EXAM: XR HAND LT COMPLETE CLINICAL HISTORY: crush injury 4th digit. TECHNIQUE: 2D digital imaging was performed. COMPARISON: None FINDINGS: There is a displaced fracture of the dorsal aspect of the base of the distal phalanx of the 4th-ring finger. The fracture fragment measures 3 x 2 millimeters. It is displaced by a distance of approxim ately 2.5 millimeters. No other acute fractures evident. Degenerative changes are noted in the prox imal interphalangeal joint of the finger and there is been partial non recent amputation of the dista l phalanx of the thumb. There is no radiopaque foreign body. IMPRESSION: DATA REPOSITORY: RADIATION DOSE DELIVERED:
--- NOTE | 2020-11-30 17:34 | DI.VRAD_ITS ---
PROCEDURE INFORMATION: Exam: XR Left Hand Exam date and time: 11/30/2020 5:25 PM Age: 75 years old Clinical indication: Injury or trauma; Other: Crushing injury; Hand; Left; Patient HX: Attention 4th digit. Previous thumb injury TECHNIQUE: Imaging protocol: XR Left hand. Views: 3 or more views. COMPARISON: No relevant prior studies available. FINDINGS: Bones/joints: Dorsally displaced corner fracture of the base of the distal phalanx of the 4th finger. Amputation of through the base of the distal phalanx. Degenerative arthritis in multiple joints of left wrist and hand, most marked in PIP joint with deformity of the bone surrounding 5th PIP joint likely due to old trauma. Soft tissues: Soft tissue swelling about left hand IMPRESSION: 1. Dorsally displaced intra-articular fracture of the base of the distal phalanx, 4th finger. 2. 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 Ordering:TIFFANY Bruce MD
== END 2020-11-30 17:49 | disposition home or self-care (01) ==
PROVIDERS: Emergency Provider Physician Assistant; PCP Family Medicine
DX: S67.195A Crushing injury of left ring finger, initial encounter (principal); S62.635A Displaced fracture of distal phalanx of left ring finger, initial encounter for closed fracture; W23.0XXA Caught, crushed, jammed, or pinched between moving objects, initial encounter
CPT/HCPCS: 11740; 26750; 73130

== ENCOUNTER → 2020-12-04 10:49 | Outpatient (BNVA) | payer MEDICARE, SELFPAY | PROVIDERS: PCP Family Medicine; Referring Provider Student in an Organized Health Care Education/Training Program; Visit Provider Physician Assistant | DX: S67.195A Crushing injury of left ring finger, initial encounter (principal); S62.635A Displaced fracture of distal phalanx of left ring finger, initial encounter for closed fracture; M20.012 Mallet finger of left finger(s); W23.0XXA Caught, crushed, jammed, or pinched between moving objects, initial encounter | CPT/HCPCS: 99213 ==

== ENCOUNTER 2020-12-15 19:58 | Emergency (ER) | payer MEDICARE, SELFPAY ==
[2020-12-15 20:04] VITALS: BP 166/75; PULSE 83; RESP 16; TEMP 36.3; O2SAT 92
--- NOTE | 2020-12-15 20:11 | ED.GENADUL_ITS ---
Discharge Plan Disposition Patient Disposition: HOME Condition: Stable Discharge Details Clinical Impression: Rash Primary Care Provider: Mike Burns ED Provider: Chris Amaya Home Meds and New Rx's Prescriptions: New prednisone 20 mg tablet 60 mg PO DAILY 4 Days Qty: 12 RF: 0 Continued albuterol sulfate [Ventolin HFA] 90 mcg/actuation HFA aerosol inhaler 2 inh INHALATION Q6H PRN (Reason: bronchospasm) Qty: 8.5 RF: 3 ezetimibe 10 mg tablet 10 mg PO DAILY Qty: 30 RF: 11 fluticasone propionate 50 mcg/actuation spray,suspension 2 spray NS DAILY Qty: 1 RF: 8 nitroglycerin [Nitrostat] 0.4 mg tablet, sublingual 0.4 mg Sublingual PRN Qty: 25 RF: 11 (DME) lancets [FreeStyle Lancets] 28 gauge misc 1 ea Intradermal DAILY Qty: 300 RF: 4 tamsulosin 0.4 mg capsule 0.4 mg PO DAILY Qty: 30 RF: 12 (DME) FreeStyle Test Strip 1 strip Miscellaneous DAILY Qty: 300 RF: 4 losartan 50 mg tablet 100 mg PO DAILY Qty: 180 RF: 3 (DME) Space Chamber Plus 1 EACH spacer 1 ea Miscellaneous PRN Qty: 1 RF: 0 Remicade 100 MG recon soln 1,000 mg IV .[id number] RF: 0 albuterol sulfate [Proventil HFA] 90 mcg/actuation HFA aerosol inhaler 2 puff IH Q6H PRN (Reason: shortness of breath or wheezing) Qty: 6.7 RF: 5 epinephrine [EpiPen 2-Tom] 0.3 mg/0.3 mL auto-injector 0.3 mg IM ONCE PRN (Reason: anaphylaxis) Qty: 1 RF: 1 clopidogrel [Plavix] 75 mg tablet 75 mg PO DAILY Qty: 90 RF: 4 Jardiance 25 mg tablet 25 mg PO DAILY Qty: 90 RF: 3 insulin glargine 100 unit/mL (3 mL) insulin pen 47 unit SC HS Qty: 45 RF: 3 atorvastatin 80 mg tablet 80 mg PO QHS Qty: 90 RF: 3 amlodipine 5 mg tablet 5 mg PO BID Qty: 180 RF: 3 gabapentin 300 mg capsule 300 mg PO TID Qty: 90 RF: 5 budesonide 0.5 mg/2 mL suspension for nebulization 0.5 mg Inhalation BID Qty: 60 RF: 11 Trulicity 0.75 mg/0.5 mL pen injector 0.75 mg SC QWEEK Qty: 6 RF: 3 pantoprazole 40 mg tablet,delayed release (DR/EC) 40 mg PO DAILY Qty: 90 RF: 3 (DME) pen needle, diabetic [Advocate Pen Needle] 33 gauge x 5/32 needle See Rx Instructions .ROUTE .MEDSUPPLY Qty: 100 RF: 3 alcohol swabs [BD Alcohol Swabs] Pads, Medicated 1 pad topical QID PRN (Reason: injection) Qty: 200 RF: 3 bupropion HCl 150 mg tablet sustained-release 12 hr 150 mg PO BID Qty: 60 RF: 2 acetaminophen 650 MG tablet extended release 650 mg PO Q8H PRN (Reason: Pain) Qty: 20 RF: 0 Discharge Instructions Additional Instructions: The rash is likely a local reaction to the vaccine if you have severe pain, fevers or spreading redness down the arm or difficulty breathing return to the emergency department follow up with your primary care provider within a week if rash hasn't resolved Medical Decision Making 75 yo male who states he had the 2nd dose of the covid vaccine (not sure if moderna or christiano and christiano) on 12/09 comes in with redness and itching to right shoulder area since yesterday where he had the vaccine. Denies severe p ain, fevers, swelling of the arm. Has a 4x4cm area of mild erythema over right lateral shoulder, no crepitus fluctuance or severe pain. Has normal sensation and pulses in the arm and full rom of the shoulder without pain. Suspect local reaction and is not warm to touch and not painful to touch so doubt cellulitis at this time. Given itchiness will try prednisone and advised to f/u with pcp if not improved within a week and return precautions given Differential Diagnosis Differential Diagnosis: local reaction, cellulitis, dermatitis HPI General Mode of arrival: ambulatory . Date/Time Provider Initiated Documentation: 12/15/20 20:01 . Limitations to Documentation: no limitations . Information obtained by: patient . History of Present Illness 75 year old M presents to the emergency department with the chief complaint of right arm rash, described as mild, and is localized to the right and upper extremity. Patient reports no radiation. Patient started experiencing this day(s) (1) and it has been constant. No relieving factors improve symptom(s), No exacerbating factors reported . Patient notes no other symptoms.. Patient did receive the following treatments prior to arrival, none Related Data Home Medications Medication Instructions Recorded Confirmed Space Chamber Plus #1 05/27/15 11/30/20 Remicade 1,000 mg IV .[id number] vial 05/31/15 12/15/20 acetaminophen 650 mg PO Q8H PRN #20 tablet.er 04/30/17 12/15/20 nitroglycerin 0.4 mg sublingual 0.4 mg SUBLINGUAL PRN #25 tab-cap 06/02/19 12/15/20 tablet albuterol sulfate 90 mcg/actuation 2 puff IH Q6H PRN #6.7 gm 08/04/19 12/15/20 aerosol inhaler epinephrine 0.3 mg/0.3 mL 0.3 mg IM ONCE PRN #1 each 12/20/19 12/15/20 injection, auto-injector losartan 50 mg tablet 100 mg PO DAILY #180 tab 02/23/20 12/15/20 clopidogrel 75 mg tablet 75 mg PO DAILY #90 tab 05/21/20 12/15/20 albuterol sulfate 90 mcg/actuation 2 inh INHALATION Q6H PRN #8.5 gm 05/22/20 12/15/20 aerosol inhaler ezetimibe 10 mg tablet 10 mg PO DAILY #30 tab 05/22/20 12/15/20 fluticasone propionate 50 2 spray NS DAILY #1 gm 05/22/20 12/15/20 mcg/actuation nasal spray,suspension empagliflozin 25 mg tablet 25 mg PO DAILY #90 tab 08/20/20 12/15/20 insulin glargine 100 unit/mL (3 47 unit SC HS #45 ml 09/20/20 11/30/20 mL) subcutaneous pen amlodipine 5 mg tablet 5 mg PO BID #180 tab 10/14/20 12/15/20 atorvastatin 80 mg tablet 80 mg PO QHS #90 tab 10/14/20 12/15/20 budesonide 0.5 mg/2 mL suspension 0.5 mg INHALATION BID #60 ml 11/08/20 12/15/20 for nebulization dulaglutide 0.75 mg/0.5 mL 0.75 mg SC QWEEK #6 ml 11/08/20 12/15/20 subcutaneous pen injector gabapentin 300 mg capsule 300 mg PO TID #90 cap 11/08/20 12/15/20 pantoprazole 40 mg tablet,delayed 40 mg PO DAILY #90 tab 11/08/20 12/15/20 release pen needle, diabetic 33 gauge x #100 each 11/08/20 11/30/20 alcohol swabs 1 pad TOPICAL QID PRN #200 ea 11/15/20 11/30/20 blood sugar diagnostic #300 strip 11/22/20 11/30/20 lancets 28 gauge #300 each 11/22/20 11/30/20 tamsulosin 0.4 mg capsule 0.4 mg PO DAILY #30 cap 11/22/20 12/15/20 bupropion HCl 150 mg tablet,12 hr 150 mg PO BID #60 tab 12/13/20 12/15/20 sustained-release prednisone 60 mg PO DAILY 4 Days #12 tab 12/15/20 Previous Rx's Medication Instructions Recorded acetaminophen 650 mg PO Q8H PRN #20 tablet.er 04/30/17 nitroglycerin 0.4 mg sublingual 0.4 mg SUBLINGUAL PRN #25 tab-cap 06/02/19 tablet albuterol sulfate 90 mcg/actuation 2 puff IH Q6H PRN #6.7 gm 08/04/19 aerosol inhaler epinephrine 0.3 mg/0.3 mL 0.3 mg IM ONCE PRN #1 each 12/20/19 injection, auto-injector losartan 50 mg tablet 100 mg PO DAILY #180 tab 02/23/20 clopidogrel 75 mg tablet 75 mg PO DAILY #90 tab 05/21/20 albuterol sulfate 90 mcg/actuation 2 inh INHALATION Q6H PRN #8.5 gm 05/22/20 aerosol inhaler ezetimibe 10 mg tablet 10 mg PO DAILY #30 tab 05/22/20 fluticasone propionate 50 2 spray NS DAILY #1 gm 05/22/20 mcg/actuation nasal spray,suspension empagliflozin 25 mg tablet 25 mg PO DAILY #90 tab 08/20/20 insulin glargine 100 unit/mL (3 47 unit SC HS #45 ml 09/20/20 mL) subcutaneous pen amlodipine 5 mg tablet 5 mg PO BID #180 tab 10/14/20 atorvastatin 80 mg tablet 80 mg PO QHS #90 tab 10/14/20 budesonide 0.5 mg/2 mL suspension 0.5 mg INHALATION BID #60 ml 11/08/20 for nebulization dulaglutide 0.75 mg/0.5 mL 0.75 mg SC QWEEK #6 ml 11/08/20 subcutaneous pen injector gabapentin 300 mg capsule 300 mg PO TID #90 cap 11/08/20 pantoprazole 40 mg tablet,delayed 40 mg PO DAILY #90 tab 11/08/20 release pen needle, diabetic 33 gauge x #100 each 11/08/20 alcohol swabs 1 pad TOPICAL QID PRN #200 ea 11/15/20 blood sugar diagnostic #300 strip 11/22/20 lancets 28 gauge #300 each 11/22/20 tamsulosin 0.4 mg capsule 0.4 mg PO DAILY #30 cap 11/22/20 bupropion HCl 150 mg tablet,12 hr 150 mg PO BID #60 tab 12/13/20 sustained-release prednisone 60 mg PO DAILY 4 Days #12 tab 12/15/20 Allergies Allergy/AdvReac Type Severity Reaction Status Date / Time venom-honey bee Allergy Severe ANAPHYLAXSI Verified 12/15/20 20:07 [bee venom (honey bee)] S Sulfa (Sulfonamide Allergy Unknown unknown Verified 12/15/20 20:07 Antibiotics) leflunomide [From Arava] AdvReac Intermediate DIARRHEA Verified 12/15/20 20:07 metformin AdvReac Intermediate diarrhea Verified 12/15/20 20:07 General Stated Complaint: Allergic STAR: 3 Review of Systems All systems reviewed & are unremarkable except as noted in HPI and below Constitutional Constitutional: Denies chills, Denies fever(s) and Denies weakness Cardiovascular Cardiovascular: Denies chest pain and Denies dyspnea Respiratory Respiratory: Denies cough and Denies dyspnea Gastrointestinal Gastrointestinal: Denies abdominal pain, Denies nausea and Denies vomiting Neurologic Neurologic: Denies weakness [facility] Medical History (Updated 12/15/20 @ 20:18 by Chris Amaya MD) Acute bilateral low back pain Adenomatous polyps ASCVD (arteriosclerotic cardiovascular disease) (05/05/13) 2 NEW STENTS 8/ H/O IMI; angioplasty and stent; [place] , 02/11; CVA/TIA BPH loc w urin obs/LUTS Chronic knee pain Chronic obstructive lung disease pulmonary fibrosis on chest xray ongoing tobacco use add back budesonide nebs to see if we can improve cough CVA (cerebral vascular accident) (11/21/17) Depressive disorder Diabetes mellitus (05/05/13) check A1c and creat Diverticula of colon Flank pain Gastroesophageal reflux disease Hyperlipidemia (05/05/13) Hypertension same meds, good BP here today 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) RCA occlusion 05/25/19 [facility] [place] Rheumatoid arthritis (05/05/13) [facility] [place], [place] Leon Surgical History Colonoscopy - MAC (05/16/13) Colonoscopy - MAC (11/13/16) Colostomy (~2006) TEMP W/ REVISION Excision, Lipoma (05/19/16) posterior neck Hernia Repair, Incisional KNEE REPAIR RIGHT RESECTION ANGIOFIBROMA;RIGHT FOOT 02/04/18 Stented coronary artery 05/25/19 [facility] [place]; s/p stent of old stent-KB Family History Mother Essential hypertension Heart disease Stroke Father Stroke Brother Heart disease Family History Diabetes Heart disease Cancer Brother No problems noted. Brother No problems noted. Sister No problems noted. Sister Alcohol abuse Social History Smoking/Tobacco Use Status: Current every day Tobacco Type: cigarettes Tobacco: How many years used: 60 Smoking risk assessment performed?: Yes Alcohol Intake: former Drug use: Never Substance use type: does not use Household members: family Housing: house Communication Needs: Hard of Hearing Do you need help understanding health information?: Often Pets and animals: No Sexually active: No Current gender identity: male What is your relationship status?: How often do you talk on the phone with friends or family?: three or more times per week How often do you attend [employer] or oriental orthodox services?: decline to answer Do you belong to any clubs or organized social groups?: no Panel score (0-1 are the most socially isolated patients): 1 What type of physical activity do you participate in: occasional exercise Duration: 15-30 minutes/day Monika/Episcopal: None Special monika needs: No Seatbelt use: sometimes Drive intox or ride w/intox commercial collections driver: No Do you feel safe at home: Yes Do you feel safe in your relationship?: Yes Additional Social history: twice; lives alone in trailer; has 4 grown children;3 daughters, 1 son Exam Const General: no acute distress Orientation: alert HENMT Head: normal to inspection Ears: external ears normal General nose exam: external nose normal Mouth: moist mucous membranes Eyes General: appearance normal, both eyes and all related structures Neck Neck: normal visual inspection Resp Effort & Inspection: normal respiratory effort and able to speak in complete sentences Cardio Rate: regular rate Skin General skin exam: elasticity normal Neuro General: patient alert and patient oriented x3 Extrem General: full ROM and capillary refill normal Psych Mental Status: mental status grossly normal Course Vital Signs Vital signs: Vital Signs Temperature 36.3 C L 12/15/20 20:04 Pulse 83 12/15/20 20:04 Respiratory Rate 16 12/15/20 20:04 Blood Pressure 166/75 H 12/15/20 20:04 Pulse Oximetry 92 12/15/20 20:04 Temperature 36.3 C L 12/15/20 20:04 Temperature Source Tympanic 12/15/20 20:04 Pulse 83 12/15/20 20:04 Respiratory Rate 16 12/15/20 20:04 Respiratory Effort Non-Labored 12/15/20 20:04 Blood Pressure 166/75 H 12/15/20 20:04 Blood Pressure Position Sitting 12/15/20 20:04 Pulse Oximetry 92 12/15/20 20:04 Oxygen Delivery Method Room Air 12/15/20 20:04 Oxygen Flow Rate 0 12/15/20 20:04 Pain Level 8 12/15/20 20:04 Comment 12/15/20 20:04
[2020-12-15] MEDS: predniSONE 20 MG TAB 60 MG PO (20:40)
== END 2020-12-15 20:45 | disposition home or self-care (01) ==
PROVIDERS: Emergency Provider Emergency Medicine; PCP Family Medicine
DX: L53.8 Other specified erythematous conditions (principal); L29.8 Other pruritus; T50.Z95A Adverse effect of other vaccines and biological substances, initial encounter
CPT/HCPCS: 99283; J7512

== ENCOUNTER → 2021-01-13 10:42 | Outpatient (BNVA) | payer MEDICARE, SELFPAY | PROVIDERS: PCP Family Medicine; Visit Provider Student in an Organized Health Care Education/Training Program | DX: M20.012 Mallet finger of left finger(s) (principal) | CPT/HCPCS: 99213 ==

== ENCOUNTER 2021-02-21 02:45 | Outpatient (RCR) | payer MEDICARE, SELFPAY ==
[2020-11-11] VITALS: BP 127/73; PULSE 74; RESP 18; TEMP 36.6
[2021-02-21] VITALS (7 sets, daily range): BP systolic 118–144; BP diastolic 72–83; PULSE 56–68; RESP 18–20; TEMP 36.3–36.8; O2SAT 92–94
[2021-02-21] MEDS: methylPREDNISolone SUCC 125 MG VIAL 100 MG IVP (07:47)
[2021-02-21] MEDS: Acetaminophen 325 MG TAB 650 MG PO (07:47)
[2021-02-21] MEDS: diphenhydrAMINE 25 MG CAP PO (07:47)
[2021-02-21] MEDS: Normal Saline Flush 10 ML SYR IVP (07:48)
[2021-02-21] MEDS: riTUXimab-PVVR 1,000 MG in Normal Saline 150 ML 62.5 MG IVPB (08:00)
== END 2021-03-12 23:59 | disposition home or self-care (01) ==
LOC: INF 02:45
PROVIDERS: PCP Family Medicine; Visit Provider Nurse Practitioner Acute Care
DX: M06.9 Rheumatoid arthritis, unspecified (principal)
CPT/HCPCS: 96365; 96366; 96374; 96375; J2930; Q5119

== ENCOUNTER → 2021-02-27 11:08 | Outpatient (BNVA) | payer MEDICARE, SELFPAY | PROVIDERS: PCP Family Medicine; Referring Provider Family Medicine; Visit Provider Student in an Organized Health Care Education/Training Program | DX: M20.012 Mallet finger of left finger(s) (principal) | CPT/HCPCS: 99213 ==

== ENCOUNTER 2021-03-12 16:38 | Emergency (ER) | payer MEDICARE, SELFPAY ==
[2021-03-12] VITALS (30 sets, daily range): BP systolic 72–146; BP diastolic 32–106; PULSE 40–87; RESP 15–33; TEMP 36.9; O2SAT 85–99
[2021-03-12] MEDS: Normal Saline 1,000 ML 1000 ML IV (16:39)
[2021-03-12] MEDS: EPINEPHrine 0.3 MG KIT (16:50)
[2021-03-12] MEDS: diphenhydrAMINE 50 MG/ML VIAL (16:55)
[2021-03-12] MEDS: methylPREDNISolone SUCC 125 MG VIAL (16:55)
--- NOTE | 2021-03-12 17:10 | W.ED.GENAD ---
Discharge Plan Disposition Patient Disposition: HOME Condition: Stable Discharge Details Clinical Impression: Anaphylaxis due to hymenoptera venom Primary Care Provider: Mike Burns ED Provider: Anton Rogers [place] Meds and New Rx's Prescriptions: New epinephrine 0.3 mg/0.3 mL auto-injector 0.3 mg IM ONCE Qty: 2 RF: 0 prednisone 20 mg tablet 40 mg PO DAILY Qty: 6 RF: 0 Continued albuterol sulfate [Ventolin HFA] 90 mcg/actuation HFA aerosol inhaler 2 inh INHALATION Q6H PRN (Reason: bronchospasm) Qty: 8.5 RF: 3 ezetimibe 10 mg tablet 10 mg PO DAILY Qty: 30 RF: 11 fluticasone propionate 50 mcg/actuation spray,suspension 2 spray NS DAILY Qty: 1 RF: 8 nitroglycerin [Nitrostat] 0.4 mg tablet, sublingual 0.4 mg Sublingual PRN Qty: 25 RF: 11 (DME) lancets [FreeStyle Lancets] 28 gauge misc 1 ea Intradermal DAILY Qty: 300 RF: 4 tamsulosin 0.4 mg capsule 0.4 mg PO DAILY Qty: 30 RF: 12 (DME) FreeStyle Test Strip 1 strip Miscellaneous DAILY Qty: 300 RF: 4 losartan 50 mg tablet 100 mg PO DAILY Qty: 180 RF: 3 (DME) Space Chamber Plus 1 EACH spacer 1 ea Miscellaneous PRN Qty: 1 RF: 0 Remicade 100 MG recon soln 1,000 mg IV .[id number] RF: 0 albuterol sulfate [Proventil HFA] 90 mcg/actuation HFA aerosol inhaler 2 puff IH Q6H PRN (Reason: shortness of breath or wheezing) Qty: 6.7 RF: 5 epinephrine [EpiPen 2-Tom] 0.3 mg/0.3 mL auto-injector 0.3 mg IM ONCE PRN (Reason: anaphylaxis) Qty: 1 RF: 1 clopidogrel [Plavix] 75 mg tablet 75 mg PO DAILY Qty: 90 RF: 4 Jardiance 25 mg tablet 25 mg PO DAILY Qty: 90 RF: 3 insulin glargine 100 unit/mL (3 mL) insulin pen 47 unit SC HS Qty: 45 RF: 3 atorvastatin 80 mg tablet 80 mg PO QHS Qty: 90 RF: 3 amlodipine 5 mg tablet 5 mg PO BID Qty: 180 RF: 3 gabapentin 300 mg capsule 300 mg PO TID Qty: 90 RF: 5 budesonide 0.5 mg/2 mL suspension for nebulization 0.5 mg Inhalation BID Qty: 60 RF: 11 Trulicity 0.75 mg/0.5 mL pen injector 0.75 mg SC QWEEK Qty: 6 RF: 3 pantoprazole 40 mg tablet,delayed release (DR/EC) 40 mg PO DAILY Qty: 90 RF: 3 (DME) pen needle, diabetic [Advocate Pen Needle] 33 gauge x 5/32 needle See Rx Instructions .ROUTE .MEDSUPPLY Qty: 100 RF: 3 alcohol swabs [BD Alcohol Swabs] Pads, Medicated 1 pad topical QID PRN (Reason: injection) Qty: 200 RF: 3 bupropion HCl 150 mg tablet sustained-release 12 hr 150 mg PO BID Qty: 60 RF: 2 acetaminophen 650 MG tablet extended release 650 mg PO Q8H PRN (Reason: Pain) Qty: 20 RF: 0 Discharge Instructions Instructions: Anaphylaxis (ED) Additional Instructions: Please take 50 mg of diphenhydramine every 6-8 hours over the next 3 days. make up girl prescription for EpiPen as well as prednisone. Prednisone will be 40 mg once a day for 3 days. EpiPen for use in future stings. Return to ED overnight if any issues. Follow-up with primary next week if needed. Referrals: Mike Burns [Primary Care Provider] - Discharge Data Discharge Date/Time-TO BE ENTERED AT DEPARTURE: 03/12/21 18:46 Medical Decision Making Patient found to be hypotensive into the 70s. He is not tachycardic but he is very diaphoretic. IV established and fluids started. Epinephrine, diphenhydramine, Solu-Medrol all ordered. Patient reevaluated 5 to 10 minutes after subcu epinephrine given. Diaphoresis has resolved and blood pressure has normalized. Some episodes of desaturation but patient again has history of COPD and continues to smoke. He was given a DuoNeb here. He had no respiratory difficulty. Patient was observed but did not wish to wait the entire 4 hours. He had no recurrent hypotensive events. He lives only a short distance away. He is asking for discharge. He will go home and continue oral diphenhydramine for the next few days. He will picker / packer prescriptions for prednisone and EpiPen in the morning. He will return to ED overnight if any recurrent problems. HPI General Mode of arrival: wheelchair. Date/Time Provider Initiated Documentation: 03/12/21 17:10. Limitations to Documentation: no limitations. Information obtained by: patient and RN notes reviewed. HPI Narrative: Patient presents to ED status post bee sting to the side of his face. He has a history of anaphylaxis to bee stings. His EpiPen is . He presents to the ED with feelings of lightheadedness, weakness and is diaphoretic. He denies any difficulty breathing, mouth or throat swelling, vomiting or abdominal cramping, hives. He has not been stung in quite some time. This sting occurred 20 minutes [employer]. He does have a history of COPD and does continue to smoke. Related Data Home Medications Medication Instructions Recorded Confirmed Space Chamber Plus #1 05/27/15 03/12/21 Remicade 1,000 mg IV .[id number] vial 05/31/15 03/12/21 acetaminophen 650 mg PO Q8H PRN #20 tablet.er 04/30/17 03/12/21 nitroglycerin 0.4 mg sublingual 0.4 mg SUBLINGUAL PRN #25 tab-cap 06/02/19 03/12/21 tablet albuterol sulfate 90 mcg/actuation 2 puff IH Q6H PRN #6.7 gm 08/04/19 03/12/21 aerosol inhaler epinephrine 0.3 mg/0.3 mL 0.3 mg IM ONCE PRN #1 each 12/20/19 03/12/21 injection, auto-injector losartan 50 mg tablet 100 mg PO DAILY #180 tab 02/23/20 03/12/21 clopidogrel 75 mg tablet 75 mg PO DAILY #90 tab 05/21/20 03/12/21 albuterol sulfate 90 mcg/actuation 2 inh INHALATION Q6H PRN #8.5 gm 05/22/20 03/12/21 aerosol inhaler ezetimibe 10 mg tablet 10 mg PO DAILY #30 tab 05/22/20 03/12/21 fluticasone propionate 50 2 spray NS DAILY #1 gm 05/22/20 03/12/21 mcg/actuation nasal spray,suspension empagliflozin 25 mg tablet 25 mg PO DAILY #90 tab 08/20/20 03/12/21 insulin glargine 100 unit/mL (3 47 unit SC HS #45 ml 09/20/20 03/12/21 mL) subcutaneous pen amlodipine 5 mg tablet 5 mg PO BID #180 tab 10/14/20 03/12/21 atorvastatin 80 mg tablet 80 mg PO QHS #90 tab 10/14/20 03/12/21 budesonide 0.5 mg/2 mL suspension 0.5 mg INHALATION BID #60 ml 11/08/20 03/12/21 for nebulization dulaglutide 0.75 mg/0.5 mL 0.75 mg SC QWEEK #6 ml 11/08/20 03/12/21 subcutaneous pen injector gabapentin 300 mg capsule 300 mg PO TID #90 cap 11/08/20 03/12/21 pantoprazole 40 mg tablet,delayed 40 mg PO DAILY #90 tab 11/08/20 03/12/21 release pen needle, diabetic 33 gauge x #100 each 11/08/20 03/12/21 alcohol swabs 1 pad TOPICAL QID PRN #200 ea 11/15/20 03/12/21 blood sugar diagnostic #300 strip 11/22/20 03/12/21 lancets 28 gauge #300 each 11/22/20 03/12/21 tamsulosin 0.4 mg capsule 0.4 mg PO DAILY #30 cap 11/22/20 03/12/21 bupropion HCl 150 mg tablet,12 hr 150 mg PO BID #60 tab 12/13/20 03/12/21 sustained-release epinephrine 0.3 mg IM ONCE #2 ea 03/12/21 prednisone 40 mg PO DAILY #6 tab 03/12/21 Previous Rx's Medication Instructions Recorded acetaminophen 650 mg PO Q8H PRN #20 tablet.er 04/30/17 nitroglycerin 0.4 mg sublingual 0.4 mg SUBLINGUAL PRN #25 tab-cap 06/02/19 tablet albuterol sulfate 90 mcg/actuation 2 puff IH Q6H PRN #6.7 gm 08/04/19 aerosol inhaler epinephrine 0.3 mg/0.3 mL 0.3 mg IM ONCE PRN #1 each 12/20/19 injection, auto-injector losartan 50 mg tablet 100 mg PO DAILY #180 tab 02/23/20 clopidogrel 75 mg tablet 75 mg PO DAILY #90 tab 05/21/20 albuterol sulfate 90 mcg/actuation 2 inh INHALATION Q6H PRN #8.5 gm 05/22/20 aerosol inhaler ezetimibe 10 mg tablet 10 mg PO DAILY #30 tab 05/22/20 fluticasone propionate 50 2 spray NS DAILY #1 gm 05/22/20 mcg/actuation nasal spray,suspension empagliflozin 25 mg tablet 25 mg PO DAILY #90 tab 08/20/20 insulin glargine 100 unit/mL (3 47 unit SC HS #45 ml 09/20/20 mL) subcutaneous pen amlodipine 5 mg tablet 5 mg PO BID #180 tab 10/14/20 atorvastatin 80 mg tablet 80 mg PO QHS #90 tab 10/14/20 budesonide 0.5 mg/2 mL suspension 0.5 mg INHALATION BID #60 ml 11/08/20 for nebulization dulaglutide 0.75 mg/0.5 mL 0.75 mg SC QWEEK #6 ml 11/08/20 subcutaneous pen injector gabapentin 300 mg capsule 300 mg PO TID #90 cap 11/08/20 pantoprazole 40 mg tablet,delayed 40 mg PO DAILY #90 tab 11/08/20 release pen needle, diabetic 33 gauge x #100 each 11/08/20 alcohol swabs 1 pad TOPICAL QID PRN #200 ea 11/15/20 blood sugar diagnostic #300 strip 11/22/20 lancets 28 gauge #300 each 11/22/20 tamsulosin 0.4 mg capsule 0.4 mg PO DAILY #30 cap 11/22/20 bupropion HCl 150 mg tablet,12 hr 150 mg PO BID #60 tab 12/13/20 sustained-release epinephrine 0.3 mg IM ONCE #2 ea 03/12/21 prednisone 40 mg PO DAILY #6 tab 03/12/21 Allergies Allergy/AdvReac Type Severity Reaction Status Date / Time venom-honey bee Allergy Severe ANAPHYLAXSI Verified 03/12/21 17:11 [bee venom (honey bee)] S Sulfa (Sulfonamide Allergy Unknown unknown Verified 03/12/21 17:11 Antibiotics) leflunomide [From Arava] AdvReac Intermediate DIARRHEA Verified 03/12/21 17:11 metformin AdvReac Intermediate diarrhea Verified 03/12/21 17:11 General Stated Complaint: Allergic STAR: 2 Review of Systems Narrative: 06/26 Review of Systems completed and is negative except as stated above in HPI (Systems reviewed: Const, Eyes, ENT, Resp, CV, GI, , MSK, Skin, Neuro) [facility] Medical History Acute bilateral low back pain Adenomatous polyps ASCVD (arteriosclerotic cardiovascular disease) (05/05/13) 2 NEW STENTS 04/22 H/O IMI; angioplasty and stent; [place] , 02/11; CVA/TIA BPH loc w urin obs/LUTS Chronic knee pain Chronic obstructive lung disease pulmonary fibrosis on chest xray ongoing tobacco use add back budesonide nebs to see if we can improve cough CVA (cerebral vascular accident) (11/21/17) Depressive disorder Diabetes mellitus (05/05/13) check A1c and creat Diverticula of colon Flank pain Gastroesophageal reflux disease Hyperlipidemia (05/05/13) Hypertension same meds, good BP here today 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) with avulsion fracture [place]CA [place] [facility] [place]05/05/13[place] [facility] [place] Surgical History Colonoscopy - MAC (05/16/13) Colonoscopy - MAC (11/13/16) Colostomy (~2006) TEMP W/ REVISION Excision, Lipoma (05/19/16) posterior neck Hernia Repair, Incisional KNEE REPAIR RIGHT RESECTION ANGIOFIBROMA;RIGHT FOOT 02/04/18 Stented coronary artery 05/25[place] [facility] [place] s/p stent of old stent-KB Family History Mother Essential hypertension Heart disease Stroke Father Stroke Brother Heart disease Family History Diabetes Heart disease Cancer Brother No problems noted. Brother No problems noted. Sister No problems noted. Sister Alcohol abuse Social History Smoking/Tobacco Use Status: Current every day Tobacco Type: cigarettes Tobacco: How many years used: 60 Smoking risk assessment performed?: Yes Alcohol Intake: former Drug use: Never Substance use type: does not use Household members: family Housing: house Communication Needs: Hard of Hearing Do you need help understanding health information?: Often Pets and animals: No Sexually active: No Current gender identity: male What is your relationship status?: How often do you talk on the phone with friends or family?: three or more times per week How often do you attend hoahaoism or spiritism services?: decline to answer Do you belong to any clubs or organized social groups?: no Panel score (0-1 are the most socially isolated patients): 1 What type of physical activity do you participate in: occasional exercise Duration: 15-30 minutes/day Monika/Latter-Day: None Special monika needs: No Seatbelt use: sometimes Drive intox or ride w/intox 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 HEENT: NC/AT. Normal facial exam. No OP edema. Eyes: Normal conjunctiva and sclera. Neck: Supple. Trachea midline. Lungs: Normal respiratory effort. Lungs with mild exp wheeze. Cor: RRR without murmur/gallop. GI: Soft. NT/ND. No guarding or rebound. Neuro: A+O x 3. Normal speech, mentation, gait. Cranial nerves II - XII grossly intact. No gross motor or sensory deficit. Ext: No C/C/E. Skin: Warm and dry without rash. Course Vital Signs Vital signs: Vital Signs Temperature 98.4 F 03/12/21 16:42 Pulse 78 03/12/21 16:42 Respiratory Rate 28 H 03/12/21 16:42 Blood Pressure 77/36 L 03/12/21 16:42 Pulse Oximetry 90 L 03/12/21 16:42 Temperature 98.4 F 03/12/21 16:42 Temperature Source Temporal Artery Scan 03/12/21 16:42 Pulse 78 03/12/21 16:42 Respiratory Rate 28 H 03/12/21 16:42 Blood Pressure 77/36 L 03/12/21 16:42 Pulse Oximetry 90 L 03/12/21 16:42 Critical Care Time Critical Care Time Critical Care Time: Yes Total Critical Care Time: 30 Attestation: Upon my evaluation, this patient had a high probability of imminent or life-threatening deterioration, which required my direct attention, intervention, and personal management. I have personally provided 30 minutes of critical care time exclusive of time spent on separately billable procedures. Time includes review of laboratory data, radiology results, discussion with consultants, and monitoring for potential decompensation. Interventions were performed as documented above.
[2021-03-12] MEDS: Albuterol/Ipratropium 3 ML UPD VIAL UPD (18:00)
== END 2021-03-12 18:46 | disposition home or self-care (01) ==
PROVIDERS: Emergency Provider Emergency Medicine; PCP Family Medicine
DX: T63.441A Toxic effect of venom of bees, accidental (unintentional), initial encounter (principal); T78.2XXA Anaphylactic shock, unspecified, initial encounter
CPT/HCPCS: 94640; 96361; 96372; 96374; 99291; J0171; J1200; J2930; J7620

== ENCOUNTER 2021-04-08 10:52 | Emergency (ER) | payer MEDICARE, SELFPAY ==
[2021-04-08] VITALS (49 sets, daily range): BP systolic 110–154; BP diastolic 61–134; PULSE 94–108; RESP 18–43; TEMP 37.2; O2SAT 88–97
--- NOTE | 2021-04-08 10:30 | RT.EKG_ITS ---
APPROVED REPORT Exam: Resting ECG Reason for Exam: STEMI Patient Location: E HR:102 bpm ECG Measurements Heart Rate 102 AXIS WA 226 P 31 QRSd 91 QRS -44 QT 326 T 39 QTc 425 Conclusion Sinus tachycardia...rate> 99 Prolonged WA interval...WA >215, V-rate 91-120 Inferior infarct, old...Q >35mS, II III aVF Sinus tach. I have reviewed and interpreted ECG and agree with software generated interpretation. No STEMI. No significant change from previous.
--- NOTE | 2021-04-08 10:45 | DI.RAD_ITS ---
Exam(s) XR PORTABLE CHEST AP EXAM: XR PORTABLE CHEST AP CLINICAL HISTORY: cough, shortness of breath, r/o acute disease TECHNIQUE: 2D digital imaging was performed. COMPARISON: CR,XR XR CHEST 2V PA LATERAL from 11/14/2019 CR,XR XR CHEST 2V PA LATERAL from 11/14/2019 FINDINGS: Suboptimal examination due to poor inspiration and technique. MEDIASTINUM: Normal. HEART: Cardiomegaly. PULMONARY VASCULATURE: Prominence of the pulmonary vasculature and interstitium suggesting pulmonary vascular congestion. LUNGS: No focal consolidating infiltrates. PLEURAL SPACE: No pleural effusion or pneumothorax. BONE:Within normal limits for the patient's age. OTHER FINDINGS:Normal. IMPRESSION: 1. Suboptimal examination. 2. Cardiomegaly and findings suggestive of pulmonary vascular congestion. Please correlate clinicall y. DATA REPOSITORY: RADIATION DOSE DELIVERED:
--- NOTE | 2021-04-08 10:52 | ED.GENADUL_ITS ---
Discharge Plan Disposition Patient Disposition: HOME Condition: Improving Discharge Details Clinical Impression: Acute exacerbation of chronic obstructive pulmonary disease Primary Care Provider: Mike Burns. ED Provider: Alberta Whaley Home Meds and New Rx's Prescriptions: New prednisone 20 mg tablet See Rx Instructions .ROUTE .COMPLEX Qty: 12 RF: 0 benzonatate [Tessalon Perles] 100 mg capsule 100 mg PO TID PRN (Reason: cough) Qty: 14 RF: 0 doxycycline hyclate 100 mg tablet 100 mg PO BID 7 Days Qty: 14 RF: 0 Continued albuterol sulfate [Ventolin HFA] 90 mcg/actuation HFA aerosol inhaler 2 inh INHALATION Q6H PRN (Reason: bronchospasm) Qty: 8.5 RF: 3 ezetimibe 10 mg tablet 10 mg PO DAILY Qty: 30 RF: 11 fluticasone propionate 50 mcg/actuation spray,suspension 2 spray NS DAILY Qty: 1 RF: 8 nitroglycerin [Nitrostat] 0.4 mg tablet, sublingual 0.4 mg Sublingual PRN Qty: 25 RF: 11 (DME) lancets [FreeStyle Lancets] 28 gauge misc 1 ea Intradermal DAILY Qty: 300 RF: 4 tamsulosin 0.4 mg capsule 0.4 mg PO DAILY Qty: 30 RF: 12 (DME) FreeStyle Test Strip 1 strip Miscellaneous DAILY Qty: 300 RF: 4 losartan 50 mg tablet 100 mg PO DAILY Qty: 180 RF: 3 (DME) Space Chamber Plus 1 EACH spacer 1 ea Miscellaneous PRN Qty: 1 RF: 0 Remicade 100 MG recon soln 1,000 mg IV .[id number] RF: 0 albuterol sulfate [Proventil HFA] 90 mcg/actuation HFA aerosol inhaler 2 puff IH Q6H PRN (Reason: shortness of breath or wheezing) Qty: 6.7 RF: 5 epinephrine [EpiPen 2-Tmo] 0.3 mg/0.3 mL auto-injector 0.3 mg IM ONCE PRN (Reason: anaphylaxis) Qty: 1 RF: 1 clopidogrel [Plavix] 75 mg tablet 75 mg PO DAILY Qty: 90 RF: 4 Jardiance 25 mg tablet 25 mg PO DAILY Qty: 90 RF: 3 insulin glargine 100 unit/mL (3 mL) insulin pen 47 unit SC HS Qty: 45 RF: 3 atorvastatin 80 mg tablet 80 mg PO QHS Qty: 90 RF: 3 amlodipine 5 mg tablet 5 mg PO BID Qty: 180 RF: 3 gabapentin 300 mg capsule 300 mg PO TID Qty: 90 RF: 5 budesonide 0.5 mg/2 mL suspension for nebulization 0.5 mg Inhalation BID Qty: 60 RF: 11 Trulicity 0.75 mg/0.5 mL pen injector 0.75 mg SC QWEEK Qty: 6 RF: 3 pantoprazole 40 mg tablet,delayed release (DR/EC) 40 mg PO DAILY Qty: 90 RF: 3 (DME) pen needle, diabetic [Advocate Pen Needle] 33 gauge x 5/32 needle See Rx Instructions .ROUTE .MEDSUPPLY Qty: 100 RF: 3 alcohol swabs [BD Alcohol Swabs] Pads, Medicated 1 pad topical QID PRN (Reason: injection) Qty: 200 RF: 3 bupropion HCl 150 mg tablet sustained-release 12 hr 150 mg PO BID Qty: 180 RF: 3 acetaminophen 650 MG tablet extended release 650 mg PO Q8H PRN (Reason: Pain) Qty: 20 RF: 0 epinephrine 0.3 mg/0.3 mL auto-injector 0.3 mg IM ONCE Qty: 2 RF: 0 prednisone 20 mg tablet 40 mg PO DAILY Qty: 6 RF: 0 Discharge Instructions Instructions: COPD (Chronic Obstructive Pulmonary Disease) (ED) Additional Instructions: Drink plenty of fluids and get plenty of rest. Your prescription(s) has been sent electronically to your pharmacy. Call the pharmacy to make sure your prescription(s) is ready before pickup. Take the prescription(s) as directed. Use your albuterol inhaler they have at home as needed and directed for shortness of breath, wheezing or cough. If you have no relief or worsening of symptoms in the next 2 days, you can start the antibiotics. Follow-up with your primary care doctor in 1 week. Return to the emergency department with any worsening or new concerning symp toms. Discharge Data Discharge Date/Time-TO BE ENTERED AT DEPARTURE: 04/08/21 15:37 Discharge Physician: Alberta Whaley Medical Decision Making 0095 -- 75-year-old male with a history of coronary artery disease, [place], coronary stent, COPD, CVA, diabetes, hypertension, hyperlipidemia presents for shortness of breath and vomiting this morning as a STEMI alert. Per EMS, monitor strip in route noted ST elevation in inferior leads. Vital stable in route patient given aspirin in route. Pt denies any chest pain and states this does not feel consistent with his previous AZ. Blood pressure 126/67. Heart rate 104. He appears comfortable and on top. He has oxygen saturation in the low 90s with scattered wheezing throughout. EKG notes a rate of 102, sinus, with prolonged WA but no STEMI. Differential diagnosis includes ACS, COPD exacerbation, CHF, pneumonia. Will obtain screening labs, portable chest x-ray and give DuoNeb and Solu-Medrol and reassess. 1120 -- patient reassessed and he states he feels better. Oxygen saturation 90% on room air. Increased wheezing throughout, worse in right chest. Labs reviewed and note normal white blood cell count, normal BNP and negative troponin. Chest x-ray notes pulmonary venous congestion and diffuse pulmonary fibrosis, but no infiltrate or obvious pleural effusion. Will give a 5 mg albuterol neb and reassess. 1500 -- patient reassessed and he feels much better. Lung sounds significantly improved. Oxygen saturation 93% on room air. Repeat troponin negative. Repeat EKG unchanged. Patient feels good to go home. Will send prescription for steroids, cough medication to his pharmacy. Will also send antibiotics if the symptoms do not improve or worsen considering he is a smoker. Advised to follow up with the primary care doctor for re-evaluation. Usual and customary return precautions given prior to discharge. Medical Records Medical records reviewed: Yes I reviewed the patient's medical records. Imaging Data Radiologic Study: Radiologist's impression: XR CHEST 2V PA LATERAL CLINICAL HISTORY: cough, shortness of breath, r/o acute disease TECHNIQUE: 2D digital imaging was performed. COMPARISON: CR,XR XR CHEST 2V PA LATERAL from 11/14/[address] CHEST LUNG CANCER SCREEN from 05/31/2020 FINDINGS: MEDIASTINUM: Normal. HEART: Cardiomegaly. PULMONARY VASCULATURE: Mild prominence of the pulmonary vasculature which may represent pulmonary venous congestion. LUNGS: Diffuse interstitial prominence throughout the lungs. This has a similar appearance to the CT scan of the chest from 05/31/2020 and likely reflects diffuse pulmonary fibrosis. Underlying interstitial edema cannot be excluded. No focal consolidating infiltrates. PLEURAL SPACE: No pleural effusion or pneumothorax. BONE:Within normal limits for the patient's age. OTHER FINDINGS:Normal. IMPRESSION: 1. Cardiomegaly. Pulmonary venous congestion. 2. Diffuse interstitial prominence. This is consistent with diffuse pulmonary fibrosis. Superimposed interstitial edema cannot be excluded. 3. No focal consolidating infiltrates. Laboratory Tests Range/Units 04/08/21 04/08/21 04/08/21 11:05 11:05 11:05 WBC (4.4-10.8) 10^3/uL 9.63 RBC (4.36-5.78) 10^6/uL 5.62 Hgb (13.5-17.5) g/dL 16.8 Hct (40.0-50.0) % 51.8 H MCV (80-95) fL 92.2 MCH (27.0-33.0) pg 29.9 MCHC (32.0-36.0) % 32.4 RDW (11.8-14.1) % 14.9 H Plt Count (130-400) 10^3/uL 225 MPV (8.0-11.0) fL 10.8 Immature Gran % 0.4 Neutrophils % 88.1 Lymphocytes % 2.3 Monocytes % 6.7 Eosinophils % 2.1 Basophils % 0.4 Nucleated RBC % % 0 Absolute Neutrophils (1.2-6.7) 10^3/uL 8.48 H Absolute Lymphocytes (1.2-3.4) 10^3/uL 0.22 L Absolute Monocytes (0.1-0.8) 10^3/uL 0.65 Absolute Eosinophils (0.0-0.7) 10^3/uL 0.20 Absolute Basophils (0.0-0.2) 10^3/uL 0.04 PT (9.3-11.0) sec 10.7 INR (0.9-1.1) 1.1 APTT (21.0-27.5) sec 23.0 Sodium (136-145) mmol/L 141 Potassium (3.5-5.1) mmol/L 4.7 Chloride (98-107) mmol/L 107 Carbon Dioxide (21.0-32.0) mmol/L 25.3 Anion Gap (3-11) mmol/L 8.7 BUN (7-18) mg/dL 23 H Creatinine (0.70-1.30) mg/dL 1.1 Estimated GFR/1.73 m2 (mL/min/1.73m2) >= 60.00 Glucose (74-106) mg/dL 167 H Calcium (8.5-10.1) mg/dL 8.4 L Magnesium (1.8-2.4) mg/dL 1.9 Total Bilirubin (0.2-1.0) mg/dL 0.6 AST (15-37) U/L 13 L ALT (16-63) U/L 21 Alkaline Phosphatase (46-116) U/L 99 Troponin I (<0.06) ng/mL < 0.05 NT-Pro-B Natriuret Pep (<300) pg/mL Total Protein (6.4-8.2) g/dL 7.0 Albumin (3.4-5.0) g/dL 3.3 L Range/Units 04/08/21 04/08/21 11:05 14:01 WBC (4.4-10.8) 10^3/uL RBC (4.36-5.78) 10^6/uL Hgb (13.5-17.5) g/dL Hct (40.0-50.0) % MCV (80-95) fL MCH (27.0-33.0) pg MCHC (32.0-36.0) % RDW (11.8-14.1) % Plt Count (130-400) 10^3/uL MPV (8.0-11.0) fL Immature Gran % Neutrophils % Lymphocytes % Monocytes % Eosinophils % Basophils % Nucleated RBC % % Absolute Neutrophils (1.2-6.7) 10^3/uL Absolute Lymphocytes (1.2-3.4) 10^3/uL Absolute Monocytes (0.1-0.8) 10^3/uL Absolute Eosinophils (0.0-0.7) 10^3/uL Absolute Basophils (0.0-0.2) 10^3/uL PT (9.3-11.0) sec INR (0.9-1.1) APTT (21.0-27.5) sec Sodium (136-145) mmol/L Potassium (3.5-5.1) mmol/L Chloride (98-107) mmol/L Carbon Dioxide (21.0-32.0) mmol/L Anion Gap (3-11) mmol/L BUN (7-18) mg/dL Creatinine (0.70-1.30) mg/dL Estimated GFR/1.73 m2 (mL/min/1.73m2) Glucose (74-106) mg/dL Calcium (8.5-10.1) mg/dL Magnesium (1.8-2.4) mg/dL Total Bilirubin (0.2-1.0) mg/dL AST (15-37) U/L ALT (16-63) U/L Alkaline Phosphatase (46-116) U/L Troponin I (<0.06) ng/mL < 0.05 NT-Pro-B Natriuret Pep (<300) pg/mL 63 Total Protein (6.4-8.2) g/dL Albumin (3.4-5.0) g/dL Lab Data Lab results reviewed: Yes I reviewed the patient's lab results. ECG Data Attestation: I personally reviewed and interpreted this ECG (s) as follows: Interpretation: #1 -- Rate of 102, sinus, no STEMI. WA 226. QTc 420. #2 -- Rate of 96, sinus, no STEMI. WA 217. QTc 445. HPI General Mode of arrival: ambulatory . Date/Time Provider Initiated Documentation: 04/08/21 10:59 . Limitations to Documentation: no limitations . Information obtained by: patient . HPI Narrative: Pt is a 75yo M with a history of coronary artery disease, diabetes, hypertension, hyperlipidemia, GERD, CVA, coronary artery stent presents as a STEMI alert per EMS. EMS reported ST elevation in leads II, III and aVF. Patient states he awoke this morning with shortness of breath and vomited a few times. He admits to intermittent dizziness. He denies any chest pain and states this presentation does not appear consistent with his previous heart attack. He also admits to a cough recently which has been productive with creamy white sputum. He was given 325 mg aspirin in route. Related Data Home Medications Medication Instructions Recorded Confirmed Space Chamber Plus #1 05/27/15 03/12/21 Remicade 1,000 mg IV .[id number] vial 05/31/15 03/12/21 acetaminophen 650 mg PO Q8H PRN #20 tablet.er 04/30/17 03/12/21 nitroglycerin 0.4 mg sublingual 0.4 mg SUBLINGUAL PRN #25 tab-cap 06/02/19 03/12/21 tablet albuterol sulfate 90 mcg/actuation 2 puff IH Q6H PRN #6.7 gm 08/04/19 03/12/21 aerosol inhaler epinephrine 0.3 mg/0.3 mL 0.3 mg IM ONCE PRN #1 each 12/20/19 03/12/21 injection, auto-injector losartan 50 mg tablet 100 mg PO DAILY #180 tab 02/23/20 03/12/21 clopidogrel 75 mg tablet 75 mg PO DAILY #90 tab 05/21/20 03/12/21 albuterol sulfate 90 mcg/actuation 2 inh INHALATION Q6H PRN #8.5 gm 05/22/20 03/12/21 aerosol inhaler ezetimibe 10 mg tablet 10 mg PO DAILY #30 tab 05/22/20 03/12/21 fluticasone propionate 50 2 spray NS DAILY #1 gm 05/22/20 03/12/21 mcg/actuation nasal spray,suspension empagliflozin 25 mg tablet 25 mg PO DAILY #90 tab 08/20/20 03/12/21 insulin glargine 100 unit/mL (3 47 unit SC HS #45 ml 09/20/20 03/12/21 mL) subcutaneous pen amlodipine 5 mg tablet 5 mg PO BID #180 tab 10/14/20 03/12/21 atorvastatin 80 mg tablet 80 mg PO QHS #90 tab 10/14/20 03/12/21 budesonide 0.5 mg/2 mL suspension 0.5 mg INHALATION BID #60 ml 11/08/20 03/12/21 for nebulization dulaglutide 0.75 mg/0.5 mL 0.75 mg SC QWEEK #6 ml 11/08/20 03/12/21 subcutaneous pen injector gabapentin 300 mg capsule 300 mg PO TID #90 cap 11/08/20 03/12/21 pantoprazole 40 mg tablet,delayed 40 mg PO DAILY #90 tab 11/08/20 03/12/21 release pen needle, diabetic 33 gauge x #100 each 11/08/20 03/12/21 5/32 alcohol swabs 1 pad TOPICAL QID PRN #200 ea 11/15/20 03/12/21 blood sugar diagnostic #300 strip 11/22/20 03/12/21 lancets 28 gauge #300 each 11/22/20 03/12/21 tamsulosin 0.4 mg capsule 0.4 mg PO DAILY #30 cap 11/22/20 03/12/21 epinephrine 0.3 mg IM ONCE #2 ea 03/12/21 prednisone 40 mg PO DAILY #6 tab 03/12/21 bupropion HCl 150 mg tablet,12 hr 150 mg PO BID #180 tab 03/14/21 sustained-release benzonatate [Tessalon Perles] 100 mg PO TID PRN #14 cap 04/08/21 doxycycline hyclate 100 mg PO BID 7 Days #14 tab 04/08/21 prednisone See Rx Instructions .ROUTE 04/08/21 .COMPLEX #12 tab Previous Rx's Medication Instructions Recorded acetaminophen 650 mg PO Q8H PRN #20 tablet.er 04/30/17 nitroglycerin 0.4 mg sublingual 0.4 mg SUBLINGUAL PRN #25 tab-cap 06/02/19 tablet albuterol sulfate 90 mcg/actuation 2 puff IH Q6H PRN #6.7 gm 08/04/19 aerosol inhaler epinephrine 0.3 mg/0.3 mL 0.3 mg IM ONCE PRN #1 each 12/20/19 injection, auto-injector losartan 50 mg tablet 100 mg PO DAILY #180 tab 02/23/20 clopidogrel 75 mg tablet 75 mg PO DAILY #90 tab 05/21/20 albuterol sulfate 90 mcg/actuation 2 inh INHALATION Q6H PRN #8.5 gm 05/22/20 aerosol inhaler ezetimibe 10 mg tablet 10 mg PO DAILY #30 tab 05/22/20 fluticasone propionate 50 2 spray NS DAILY #1 gm 05/22/20 mcg/actuation nasal spray,suspension empagliflozin 25 mg tablet 25 mg PO DAILY #90 tab 08/20/20 insulin glargine 100 unit/mL (3 47 unit SC HS #45 ml 09/20/20 mL) subcutaneous pen amlodipine 5 mg tablet 5 mg PO BID #180 tab 10/14/20 atorvastatin 80 mg tablet 80 mg PO QHS #90 tab 10/14/20 budesonide 0.5 mg/2 mL suspension 0.5 mg INHALATION BID #60 ml 11/08/20 for nebulization dulaglutide 0.75 mg/0.5 mL 0.75 mg SC QWEEK #6 ml 11/08/20 subcutaneous pen injector gabapentin 300 mg capsule 300 mg PO TID #90 cap 11/08/20 pantoprazole 40 mg tablet,delayed 40 mg PO DAILY #90 tab 11/08/20 release pen needle, diabetic 33 gauge x #100 each 11/08/20 5/ alcohol swabs 1 pad TOPICAL QID PRN #200 ea 11/15/20 blood sugar diagnostic #300 strip 11/22/20 lancets 28 gauge #300 each 11/22/20 tamsulosin 0.4 mg capsule 0.4 mg PO DAILY #30 cap 11/22/20 epinephrine 0.3 mg IM ONCE #2 ea 03/12/21 prednisone 40 mg PO DAILY #6 tab 03/12/21 bupropion HCl 150 mg tablet,12 hr 150 mg PO BID #180 tab 03/14/21 sustained-release benzonatate [Tessalon Perles] 100 mg PO TID PRN #14 cap 04/08/21 doxycycline hyclate 100 mg PO BID 7 Days #14 tab 04/08/21 prednisone See Rx Instructions .ROUTE 04/08/21 .COMPLEX #12 tab Allergies Allergy/AdvReac Type Severity Reaction Status Date / Time venom-honey bee Allergy Severe ANAPHYLAXSI Verified 03/12/21 17:11 [bee venom (honey bee)] S Sulfa (Sulfonamide Allergy Unknown unknown Verified 03/12/21 17:11 Antibiotics) leflunomide [From Arava] AdvReac Intermediate DIARRHEA Verified 03/12/21 17:11 metformin AdvReac Intermediate diarrhea Verified 03/12/21 17:11 General Stated Complaint: Chest Pain STAR: 1 Review of Systems All systems reviewed & are unremarkable except as noted in HPI and below Constitutional Constitutional: Reports as per HPI, Denies chills and Denies fever(s) Eyes Eyes: Denies blurry vision ENT Ears, Nose, Mouth, and Throat: Denies dizziness, Denies sore throat and Denies throat swelling Cardiovascular Cardiovascular: Denies chest pain and Reports dyspnea Respiratory Respiratory: Reports cough and Reports dyspnea Gastrointestinal Gastrointestinal: Denies abdominal pain, Denies diarrhea and Denies vomiting Genitourinary Genitourinary: Denies hematuria and Denies dysuria Musculoskeletal Musculoskeletal: Denies back pain and Denies numbness Integumentary/Breasts Skin/Breast: Denies lesions and Denies rash Neurologic Neurologic: Denies dizziness, Denies localized weakness and Denies numbness Allergic/Immunologic Allergic/Immunologic: Denies throat swelling [facility] [place] Medical History Acute bilateral low back pain Adenomatous polyps ASCVD (arteriosclerotic cardiovascular disease) (05/05/13) 2 NEW STENTS 04/22 H/O IMI; angioplasty and stent; [place] , 02/11; CVA/TIA BPH loc w urin obs/LUTS Chronic knee pain Chronic obstructive lung disease pulmonary fibrosis on chest xray ongoing tobacco use add back budesonide nebs to see if we can improve cough CVA (cerebral vascular accident) (11/21/17) Depressive disorder Diabetes mellitus (05/05/13) check A1c and creat Diverticula of colon Flank pain Gastroesophageal reflux disease Hyperlipidemia (05/05/13) Hypertension same meds, good BP here today 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) with avulsion fracture RCA occlusion [place]/25/19 [facility] [place]umatoid arthritis (05/05/13) [facility] [place] Leon Surgical History Colonoscopy - MAC (05/16/13) Colonoscopy - MAC (11/13/16) Colostomy (~2006) TEMP W/ REVISION Excision, Lipoma (05/19/16) posterior neck Hernia Repair, Incisional KNEE REPAIR RIGHT RESECTION ANGIOFIBROMA;RIGHT FOOT 02/04/18 Stented coronary artery 05/25/19 [facility] [place] s/p stent of old stent-KB Family History Mother Essential hypertension Heart disease Stroke Father Stroke Brother Heart disease Family History Diabetes Heart disease Cancer Brother No problems noted. Brother No problems noted. Sister No problems noted. Sister Alcohol abuse Social History Smoking/Tobacco Use Status: Current every day Tobacco Type: cigarettes Tobacco: How many years used: 60 Smoking risk assessment performed?: Yes Alcohol Intake: former Drug use: Never Substance use type: does not use Household members: family Housing: house Communication Needs: Hard of Hearing Do you need help understanding health information?: Often Pets and animals: No Sexually active: No Current gender identity: male What is your relationship status?: How often do you talk on the phone with friends or family?: three or more times per week How often do you attend sabianist or buddhism services?: decline to answer Do you belong to any clubs or organized social groups?: no Panel score (0-1 are the most socially isolated patients): 1 What type of physical activity do you participate in: occasional exercise Duration: 15-30 minutes/day Monika/Uatsdin: None Special monika needs: No Seatbelt use: sometimes Drive intox or ride w/intox 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 supervisor: No Do you feel safe at home: Yes Do you feel safe in your relationship?: Yes Additional Social history: twice; lives alone in trailer; has 4 grown children;3 daughters, 1 son Exam Const General: cooperative and no acute distress HENMT Head: normal to inspection Face and sinus: normal facial exam Eyes General: appearance normal, both eyes and all related structures EOM: EOM intact bilaterally Neck Neck: normal visual inspection and No submandibular swelling Lymphatic: no lymphadenopathy noted Chest Chest: normal inspection of the chest and no tenderness Resp Effort & Inspection: normal respiratory effort and able to speak in complete sentences Auscultation: wheezes scattered wheezes Cardio Rate: regular rate Rhythm: regular rhythm GI Inspection: normal to inspection Palpation: soft, not firm, not rigid and nontender Auscultation: normal bowel sounds Skin General skin exam: no rashes or lesions noted Neuro General: patient alert, patient awake and patient oriented x3 Cognition: normal cognition Speech: speech normal Motor: muscle tone normal throughout Sensory Exam: no sensory deficits noted Extrem General: normal to inspection, full ROM, capillary refill normal, no calf tenderness bilaterally and no edema Psych Appearance: grossly normal Mental Status: mental status grossly normal Speech and Movement: speech and movement normal Affect: normal affect Course Vital Signs Vital signs: Vital Signs Temperature 99 F 04/08/21 10:41 Pulse 104 H 04/08/21 10:41 Respiratory Rate 22 04/08/21 10:41 Blood Pressure 126/67 04/08/21 10:41 Pulse Oximetry 94 04/08/21 10:41 Temperature 99 F 04/08/21 10:41 Temperature Source Skin 04/08/21 10:41 Pulse 104 H 04/08/21 10:41 Respiratory Rate 22 04/08/21 10:41 Blood Pressure 126/67 04/08/21 10:41 Blood Pressure Position Supine 04/08/21 10:41 Pulse Oximetry 94 04/08/21 10:41 Oxygen Delivery Method Nasal Cannula 04/08/21 10:41 Pain Level 0 04/08/21 10:41
[2021-04-08] MEDS: Albuterol/Ipratropium 3 ML UPD VIAL UPD (11:06)
[2021-04-08] MEDS: methylPREDNISolone SUCC 125 MG VIAL IVP (11:06)
[2021-04-08 11:12] LABS: Abs Immature Grans 0.04 10^3/uL (0.0-0.06); Absolute Basophil Count 0.04 10^3/uL (0.0-0.2); Absolute Lymphocyte Count 0.22 10^3/uL (1.2-3.4); Absolute Monocyte Count 0.65 10^3/uL (0.1-0.8); Absolute Neutrophil Count 8.48 10^3/uL (1.2-6.7); Basophils % 0.4; Eosinophils % 2.1; HCT 51.8 % (40.0-50.0); HGB 16.8 g/dL (13.5-17.5); Immature Grans % 0.4; Lymphocytes % 2.3; MCH 29.9 pg (27.0-33.0); MCHC 32.4 % (32.0-36.0); MCV 92.2 fL (80-95); MPV 10.8 fL (8.0-11.0); Monocytes % 6.7; Neutrophils % 88.1; Nucleated RBC 0 %; Platelet Count 225 10^3/uL (130-400); RBC 5.62 10^6/uL (4.36-5.78); RDW 14.9 % (11.8-14.1); RDW-SD 50.8 fL; WBC 9.63 10^3/uL (4.4-10.8)
[2021-04-08] MEDS: Albuterol 2.5 MG/3 ML INH SOLN VIAL 5 MG UPD (11:31)
[2021-04-08 11:40] LABS: ALT 21 U/L (16-63); AST 13 U/L (15-37); Albumin 3.3 g/dL (3.4-5.0); Alkaline Phosphatase 99 U/L (46-116); Anion Gap 8.7 mmol/L (3-11); BUN 23 mg/dL (7-18); Bilirubin, Total 0.6 mg/dL (0.2-1.0); CO2 25.3 mmol/L (21.0-32.0); CREATININE 1.1 mg/dL (0.70-1.30); Calcium 8.4 mg/dL (8.5-10.1); Chloride 107 mmol/L (98-107); Glucose 167 mg/dL (74-106); Magnesium 1.9 mg/dL (1.8-2.4); Potassium 4.7 mmol/L (3.5-5.1); Sodium 141 mmol/L (136-145)
[2021-04-08 11:43] LABS: INR 1.1 (0.9-1.1); Prothrombin Time 10.7 sec (9.3-11.0); Troponin I < 0.05 ng/mL (<0.06)
[2021-04-08 11:57] LABS: NT-proBNP 63 pg/mL (<300)
--- NOTE | 2021-04-08 11:58 | DI.RAD_ITS ---
Exam(s) XR CHEST 2V PA LATERAL EXAM: XR CHEST 2V PA LATERAL CLINICAL HISTORY: cough, shortness of breath, r/o acute disease TECHNIQUE: 2D digital imaging was performed. COMPARISON: CR,XR XR CHEST 2V PA LATERAL from 11/14/[address] CHEST LUNG CANCER SCREEN from 05/31/2020 FINDINGS: MEDIASTINUM: Normal. HEART: Cardiomegaly. PULMONARY VASCULATURE: Mild prominence of the pulmonary vasculature which may represent pulmonary polly ous congestion. LUNGS: Diffuse interstitial prominence throughout the lungs. This has a similar appearance to the CT scan of the chest from 05/31/2020 and likely reflects diffuse pulmonary fibrosis. Underlying interst itial edema cannot be excluded. No focal consolidating infiltrates. PLEURAL SPACE: No pleural effusion or pneumothorax. BONE:Within normal limits for the patient's age. OTHER FINDINGS:Normal. IMPRESSION: 1. Cardiomegaly. Pulmonary venous congestion. 2. Diffuse interstitial prominence. This is consistent with diffuse pulmonary fibrosis. Superimpose d interstitial edema cannot be excluded. 3. No focal consolidating infiltrates. DATA REPOSITORY: RADIATION DOSE DELIVERED:
--- NOTE | 2021-04-08 12:30 | RT.EKG_ITS ---
APPROVED REPORT Exam: Resting ECG Reason for Exam: shortness of breath Patient Location: E HR:96 bpm ECG Measurements Heart Rate 96 AXIS OH 217 P 36 QRSd 98 QRS -51 QT 350 T 43 QTc 445 Conclusion Sinus rhythm...normal P axis, V-rate 60- 99 Ventricular premature complex...V complex w/ short R-R interval Prolonged OH interval...OH >215, V-rate 91-120. Inferior infarct, old...Q >35mS, II III aVF Consider anterior infarct...Q >30mS in V2-V5. PVCs. No STEMI. I have reviewed and interpreted ECG and agree with software generated interpretation.
[2021-04-08 14:43] LABS: Troponin I < 0.05 ng/mL (<0.06)
== END 2021-04-08 15:37 | disposition home or self-care (01) ==
PROVIDERS: Emergency Provider Physician Assistant; PCP Family Medicine
DX: J44.1 Chronic obstructive pulmonary disease with (acute) exacerbation (principal); F17.210 Nicotine dependence, cigarettes, uncomplicated
CPT/HCPCS: 36415; 80053; 93005; 94640; 96374; 99285; 71045; 71046; 83735; 83880; 84484; 85025; 85610; 85730; 93010; J2930; J7613; J7620

== ENCOUNTER 2021-05-02 11:27 | Emergency (ER) | payer MEDICARE, SELFPAY ==
[2021-05-02 11:53] LABS: Bilirubin Negative (Negative); Blood Negative (Negative); Clarity Clear (Clear); Glucose 500 mg/dL (Negative); Ketones Negative (Negative); Leukocyte Esterase Negative (Negative); Nitrite Negative (Negative); Specific Gravity 1.025 (1.005-1.025); Urobilinogen 0.2 EU/dL (Up TO 0.2); pH 5.5 (5-8)
[2021-05-02 11:54] VITALS: BP 105/62; PULSE 85; RESP 20; TEMP 36.6; O2SAT 92
--- NOTE | 2021-05-02 12:15 | RT.EKG_ITS ---
APPROVED REPORT Exam: Resting ECG Reason for Exam: abdominal pain Patient Location: E HR:71 bpm ECG Measurements Heart Rate 71 AXIS WA 226 P 50 QRSd 106 QRS -46 QT 408 T 21 QTc 445 Conclusion Sinus rhythm...normal P axis, V-rate 60- 99 Prolonged WA interval...WA >220, V-rate 50- 90 Left ventricular hypertrophy...multiple LVH criteria Inferior infarct, old...Q >35mS, II III aVF
--- NOTE | 2021-05-02 12:15 | DI.CT_ITS ---
Exam(s) CT ABDOMEN PELVIS W EXAM: CT ABDOMEN PELVIS W CLINICAL HISTORY: abdominal pain, lower, vomiting hx of sbo TECHNIQUE: Imaging Protocol: Axial computed tomography images with coronal and sagittal reformatted images were created and reviewed CONTRAST MATERIAL: Intravenous: Omnipaque 350 Contrast volume:100 mL Oral: No COMPARISON: CT ABD PELVIS WITH CONTRAST from 10/25/[address] CHEST PE CTA from 05/25/2019 FINDINGS: ABDOMEN: Lung Bases: COPD and pulmonary fibrosis. Cardiomegaly. Liver: Normal density. No measurable mass. Portal, Superior Mesenteric, and Splenic Veins: Unremarkable. Gallbladder and Biliary Tract: No radiodense calculus or dilation. Pancreas: Normal density, no abnormal calcifications or inflammatory process. Spleen: Normal. Adrenals: No masses seen. Kidneys: Normal size, contour and axis. No radiodense stones or obstructive uropathy. Less than 1 cm cortical hypodensities in the left kidney. They are too small for further characterization, but like ly reflect small cysts. Abdominal Aorta: Abdominal portion non-dilated. 2.6 cm right internal iliac artery aneurysm. Bowel: Mild bowel wall thickening is seen in the sigmoid colon. There does appear to be mild increas ed attenuation in the surrounding soft tissues. While there are few diverticula in this region, a no nspecific inflammatory/infectious colitis should be considered in addition to acute diverticulitis. No abscess or free air. Appendix is unremarkable. Small hiatal hernia. Peritoneal Cavity: No ascites, collection or mesenteric inflammatory response. No free air. Lymph Nodes: Within normal limits. Bones: Within normal limits for the patient's age. Soft Tissues: Small fat containing inguinal hernia. Status post anterior abdominal wall surgery. PELVIS: Bladder: Symmetric distention, no gross wall thickening. Reproductive Organs: Enlarged prostate gland. Lymph Nodes: Within normal limits. Bones: Within normal limits for the patient's age. IMPRESSION: 1. Bowel wall thickening and pericolonic inflammatory changes in the sigmoid colon. While there are a few diverticula in this region, a nonspecific inflammatory/infectious colitis should be considered in addition to acute diverticulitis. No abscess or free air. 2. COPD and pulmonary fibrosis. Cardiomegaly. 3. 2.6 cm right internal iliac artery aneurysm. 4. Results of this exam have been verbally communicated with provider. RADIATION DOSE DELIVERED: 1,221.36mGy.cm Total DLP DATA REPOSITORY: All CT scans at this facility are submitted to the National Radiology Data Registry (NRDR) Dose Index Registry (DIR) with the [employer] (ACR). RADIATION OPTIMIZATION: All CT scans at this facility use at least one of these dose optimization te chniques: automated exposure control; mA and/or kV adjustment per patient size (includes targeted exa ms where dose is matched to clinical indication); or iterative reconstruction.
[2021-05-02 12:40] LABS: Abs Immature Grans 0.03 10^3/uL (0.0-0.06); Absolute Basophil Count 0.06 10^3/uL (0.0-0.2); Absolute Eosinophil Count 0.24 10^3/uL (0.0-0.7); Absolute Lymphocyte Count 1.29 10^3/uL (1.2-3.4); Absolute Monocyte Count 0.96 10^3/uL (0.1-0.8); Absolute Neutrophil Count 7.77 10^3/uL (1.2-6.7); Basophils % 0.6; Eosinophils % 2.3; HCT 52.9 % (40.0-50.0); HGB 17.4 g/dL (13.5-17.5); Immature Grans % 0.3; Lymphocytes % 12.5; MCH 30.4 pg (27.0-33.0); MCHC 32.9 % (32.0-36.0); MCV 92.5 fL (80-95); MPV 10.5 fL (8.0-11.0); Monocytes % 9.3; Nucleated RBC 0 %; Platelet Count 263 10^3/uL (130-400); RBC 5.72 10^6/uL (4.36-5.78); RDW 15.1 % (11.8-14.1); WBC 10.35 10^3/uL (4.4-10.8)
[2021-05-02] MEDS: fentaNYL 100 MCG/2 ML VIAL 50 MCG IVP (12:42)
[2021-05-02] MEDS: Ondansetron 4 MG/2 ML VIAL IVP (12:42)
[2021-05-02] MEDS: Lactated Ringers 1,000 ML 500 ML IV (12:42)
[2021-05-02 12:54] LABS: ALT 23 U/L (16-63); AST 13 U/L (15-37); Albumin 3.5 g/dL (3.4-5.0); Alkaline Phosphatase 106 U/L (46-116); Anion Gap 10.1 mmol/L (3-11); BUN 22 mg/dL (7-18); Bilirubin, Total 0.5 mg/dL (0.2-1.0); CO2 24.9 mmol/L (21.0-32.0); CREATININE 1.2 mg/dL (0.70-1.30); Calcium 9.3 mg/dL (8.5-10.1); Chloride 107 mmol/L (98-107); Estimated GFR 59.35 (mL/min/1.73m2); Glucose 144 mg/dL (74-106); Lipase 158 U/L (73-393); Magnesium 2.2 mg/dL (1.8-2.4); Potassium 3.9 mmol/L (3.5-5.1); Sodium 142 mmol/L (136-145); Total Protein 7.4 g/dL (6.4-8.2); Troponin I < 0.05 ng/mL (<0.06)
--- NOTE | 2021-05-02 13:09 | W.ED.GENAD ---
Discharge Plan Disposition Patient Disposition: HOME Condition: Stable Discharge Details Clinical Impression: Diverticulitis of colon Primary Care Provider: Mike Burns ED Provider: Leona De Santiago Home Meds and New Rx's Prescriptions: New ondansetron HCl [Zofran] 4 mg tablet 4 mg PO Q8H PRNQty: 10 RF: 0 amoxicillin-pot clavulanate [Augmentin] 875-125 mg tablet 1 tab PO BID Qty: 20 RF: 0 Saccharomyces boulardii [Florastor] 250 mg capsule 250 mg PO BID Qty: 14 RF: 0 Continued albuterol sulfate [Ventolin HFA] 90 mcg/actuation HFA aerosol inhaler 2 inh INHALATION Q6H PRN (Reason: bronchospasm) Qty: 8.5 RF: 3 ezetimibe 10 mg tablet 10 mg PO DAILY Qty: 30 RF: 11 fluticasone propionate 50 mcg/actuation spray,suspension 2 spray NS DAILY Qty: 1 RF: 8 nitroglycerin [Nitrostat] 0.4 mg tablet, sublingual 0.4 mg Sublingual PRN Qty: 25 RF: 11 (DME) lancets [FreeStyle Lancets] 28 gauge misc 1 ea Intradermal DAILY Qty: 300 RF: 4 tamsulosin 0.4 mg capsule 0.4 mg PO DAILY Qty: 30 RF: 12 (DME) FreeStyle Test Strip 1 strip Miscellaneous DAILY Qty: 300 RF: 4 losartan 50 mg tablet 100 mg PO DAILY Qty: 180 RF: 3 benzonatate [Tessalon Perles] 100 mg capsule 100 mg PO TID PRN (Reason: cough) Qty: 30 RF: 0 (DME) Space Chamber Plus 1 EACH spacer 1 ea Miscellaneous PRN Qty: 1 RF: 0 Remicade 100 MG recon soln 1,000 mg IV .[id number] RF: 0 clopidogrel [Plavix] 75 mg tablet 75 mg PO DAILY Qty: 90 RF: 4 Jardiance 25 mg tablet 25 mg PO DAILY Qty: 90 RF: 3 insulin glargine 100 unit/mL (3 mL) insulin pen 47 unit SC HS Qty: 45 RF: 3 atorvastatin 80 mg tablet 80 mg PO QHS Qty: 90 RF: 3 amlodipine 5 mg tablet 5 mg PO BID Qty: 180 RF: 3 gabapentin 300 mg capsule 300 mg PO TID Qty: 90 RF: 5 budesonide 0.5 mg/2 mL suspension for nebulization 0.5 mg Inhalation BID Qty: 60 RF: 11 Trulicity 0.75 mg/0.5 mL pen injector 0.75 mg SC QWEEK Qty: 6 RF: 3 pantoprazole 40 mg tablet,delayed release (DR/EC) 40 mg PO DAILY Qty: 90 RF: 3 (DME) pen needle, diabetic [Advocate Pen Needle] 33 gauge x 5/32 needle See Rx Instructions .ROUTE .MEDSUPPLY Qty: 100 RF: 3 alcohol swabs [BD Alcohol Swabs] Pads, Medicated 1 pad topical QID PRN (Reason: injection) Qty: 200 RF: 3 bupropion HCl 150 mg tablet sustained-release 12 hr 150 mg PO BID Qty: 180 RF: 3 acetaminophen 650 MG tablet extended release 650 mg PO Q8H PRN (Reason: Pain) Qty: 20 RF: 0 epinephrine 0.3 mg/0.3 mL auto-injector 0.3 mg IM ONCE Qty: 2 RF: 0 Discharge Instructions Instructions: Diverticulitis (ED) Additional Instructions: Take the antibiotic as prescribed Take the Florastor that you do not develop a stool infection Follow-up with your primary care physician in 48 hours for reevaluation return to the emergency room should you develop weakness, dizziness, fever, chills, or with any new or worsening complaints Medical Decision Making CBC within normal limit, CMP does not show acute abnormality aside from mild elevation in BUN, given 1 L of normal saline resuscitation Feeling symptomatically improved in terms of nausea CT abdomen and pelvis discussed with the radiologist, Dr. Garcia we talked about risk-benefit admission versus discharge home and at this time patient is alert, oriented, of decisional capacity and feels comfortable discharge home He will be discharged home in the care of his daughter He feels comfortable with this decision His urinalysis does not show acute abnormality, bladder scan shows 39 cc he is emptying completely and not at need of catheter placement at this time And states that patient has diffuse colitis and possible diverticulitis As patient is not having any diarrhea, I will treat him for diverticulitis, he will need close outpatient follow-up with probable colonoscopy at his decision he will be placed on Augmentin, Florastor, and Zofran as needed for nausea and vomiting Recheck with primary care physician in 48 hours recommended Able to tolerate p.o. Medical Records Medical records reviewed: Yes I reviewed the patient's medical records. Lab Data Lab results reviewed: Yes I reviewed the patient's lab results. HPI General Mode of arrival: ambulatory. Date/Time Provider Initiated Documentation: 05/02/21 11:47. Limitations to Documentation: no limitations. Information obtained by: patient. HPI Narrative: This 74-year-old gentleman with history of COPD, otitis media, low back pain, bradycardia, hyperglycemia and diabetes, myocardial infarction, hypertension, hyperlipidemia presents with report of abdominal pain and difficulty moving his bowels and urinating. He denies any chest pain or shortness of breath. He denies dizziness or weakness. He had one episode of nausea and vomiting this morning. He has a history of bowel obstruction and actually had ostomy with reversal several years ago. He denies any cough, fever, chills, or any additional complaints at this time. Symptoms started yesterday. His last bowel movement was yesterday morning. He denies blood in vomitus or stool. He denies any alcohol consumption. Describes the pain as an aching sensation in the suprapubic region. Denies history of similar pain in the past. Related Data Home Medications Medication Instructions Recorded Confirmed Space Chamber Plus #1 05/27/15 05/02/21 Remicade 1,000 mg IV .[id number] vial 05/31/15 05/02/21 acetaminophen 650 mg PO Q8H PRN #20 tablet.er 04/30/17 05/02/21 nitroglycerin 0.4 mg sublingual 0.4 mg SUBLINGUAL PRN #25 tab-cap 06/02/19 05/02/21 tablet losartan 50 mg tablet 100 mg PO DAILY #180 tab 02/23/20 05/02/21 clopidogrel 75 mg tablet 75 mg PO DAILY #90 tab 05/21/20 05/02/21 albuterol sulfate 90 mcg/actuation 2 inh INHALATION Q6H PRN #8.5 gm 05/22/20 05/02/21 aerosol inhaler ezetimibe 10 mg tablet 10 mg PO DAILY #30 tab 05/22/20 05/02/21 fluticasone propionate 50 2 spray NS DAILY #1 gm 05/22/20 05/02/21 mcg/actuation nasal spray,suspension empagliflozin 25 mg tablet 25 mg PO DAILY #90 tab 08/20/20 05/02/21 insulin glargine 100 unit/mL (3 47 unit SC HS #45 ml 09/20/20 05/02/21 mL) subcutaneous pen amlodipine 5 mg tablet 5 mg PO BID #180 tab 10/14/20 05/02/21 atorvastatin 80 mg tablet 80 mg PO QHS #90 tab 10/14/20 05/02/21 budesonide 0.5 mg/2 mL suspension 0.5 mg INHALATION BID #60 ml 11/08/20 05/02/21 for nebulization dulaglutide 0.75 mg/0.5 mL 0.75 mg SC QWEEK #6 ml 11/08/20 05/02/21 subcutaneous pen injector gabapentin 300 mg capsule 300 mg PO TID #90 cap 11/08/20 05/02/21 pantoprazole 40 mg tablet,delayed 40 mg PO DAILY #90 tab 11/08/20 05/02/21 release pen needle, diabetic 33 gauge x #100 each 11/08/20 05/02/2132 alcohol swabs 1 pad TOPICAL QID PRN #200 ea 11/15/20 05/02/21 blood sugar diagnostic #300 strip 11/22/20 05/02/21 lancets 28 gauge #300 each 11/22/20 05/02/21 tamsulosin 0.4 mg capsule 0.4 mg PO DAILY #30 cap 11/22/20 05/02/21 epinephrine 0.3 mg IM ONCE #2 ea 03/12/21 05/02/21 bupropion HCl 150 mg tablet,12 hr 150 mg PO BID #180 tab 03/14/21 05/02/21 sustained-release benzonatate 100 mg capsule 100 mg PO TID PRN #30 cap 04/17/21 05/02/21 Saccharomyces boulardii [Florastor] 250 mg PO BID #14 cap 05/02/21 amoxicillin-pot clavulanate 1 tab PO BID #20 tab 05/02/21 [Augmentin] ondansetron HCl [Zofran] 4 mg PO Q8H PRN #10 tab 05/02/21 Previous Rx's Medication Instructions Recorded acetaminophen 650 mg PO Q8H PRN #20 tablet.er 04/30/17 nitroglycerin 0.4 mg sublingual 0.4 mg SUBLINGUAL PRN #25 tab-cap 06/02/19 tablet losartan 50 mg tablet 100 mg PO DAILY #180 tab 02/23/20 clopidogrel 75 mg tablet 75 mg PO DAILY #90 tab 05/21/20 albuterol sulfate 90 mcg/actuation 2 inh INHALATION Q6H PRN #8.5 gm 05/22/20 aerosol inhaler ezetimibe 10 mg tablet 10 mg PO DAILY #30 tab 05/22/20 fluticasone propionate 50 2 spray NS DAILY #1 gm 05/22/20 mcg/actuation nasal spray,suspension empagliflozin 25 mg tablet 25 mg PO DAILY #90 tab 08/20/20 insulin glargine 100 unit/mL (3 47 unit SC HS #45 ml 09/20/20 mL) subcutaneous pen amlodipine 5 mg tablet 5 mg PO BID #180 tab 10/14/20 atorvastatin 80 mg tablet 80 mg PO QHS #90 tab 10/14/20 budesonide 0.5 mg/2 mL suspension 0.5 mg INHALATION BID #60 ml 11/08/20 for nebulization dulaglutide 0.75 mg/0.5 mL 0.75 mg SC QWEEK #6 ml 11/08/20 subcutaneous pen injector gabapentin 300 mg capsule 300 mg PO TID #90 cap 11/08/20 pantoprazole 40 mg tablet,delayed 40 mg PO DAILY #90 tab 11/08/20 release pen needle, diabetic 33 gauge x #100 each 11/08/20 alcohol swabs 1 pad TOPICAL QID PRN #200 ea 11/15/20 blood sugar diagnostic #300 strip 11/22/20 lancets 28 gauge #300 each 11/22/20 tamsulosin 0.4 mg capsule 0.4 mg PO DAILY #30 cap 11/22/20 epinephrine 0.3 mg IM ONCE #2 ea 03/12/21 bupropion HCl 150 mg tablet,12 hr 150 mg PO BID #180 tab 03/14/21 sustained-release benzonatate 100 mg capsule 100 mg PO TID PRN #30 cap 04/17/21 Saccharomyces boulardii [Florastor] 250 mg PO BID #14 cap 05/02/21 amoxicillin-pot clavulanate 1 tab PO BID #20 tab 05/02/21 [Augmentin] ondansetron HCl [Zofran] 4 mg PO Q8H PRN #10 tab 05/02/21 Allergies Allergy/AdvReac Type Severity Reaction Status Date / Time venom-honey bee Allergy Severe ANAPHYLAXSI Verified 05/02/21 12:13 [bee venom (honey bee)] S Sulfa (Sulfonamide Allergy Unknown unknown Verified 05/02/21 12:13 Antibiotics) leflunomide [From Arava] AdvReac Intermediate DIARRHEA Verified 05/02/21 12:13 metformin AdvReac Intermediate diarrhea Verified 05/02/21 12:13 General Stated Complaint: Abd Prob STAR: 3 Review of Systems All systems reviewed & are unremarkable except as noted in HPI and below PFSH Medical History Acute bilateral low back pain Adenomatous polyps ASCVD (arteriosclerotic cardiovascular disease) (05/05/13) 2 NEW STENTS 04/22 H/O IMI; angioplasty and stent; [place] , 02/11; CVA/TIA BPH loc w urin obs/LUTS Chronic knee pain Chronic obstructive lung disease pulmonary fibrosis on chest xray ongoing tobacco use add back budesonide nebs to see if we can improve cough CVA (cerebral vascular accident) (11/21/17) Depressive disorder Diabetes mellitus (05/05/13) check A1c and creat Diverticula of colon Flank pain Gastroesophageal reflux disease Hyperlipidemia (05/05/13) Hypertension same meds, good BP here today 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) with avulsion fracture [place] [facility] [place] [facility] [place] Surgical History Colonoscopy - MAC (05/16/13) Colonoscopy - MAC (11/13/16) Colostomy (~2006) TEMP W/ REVISION Excision, Lipoma (05/19/16) posterior neck Hernia Repair, Incisional KNEE REPAIR RIGHT RESECTION ANGIOFIBROMA;RIGHT FOOT 02/04/18 Stented coronary artery [place] [facility] [place] of [place] stent-KB Family History Mother Essential hypertension Heart disease Stroke Father Stroke Brother Heart disease Family History Diabetes Heart disease Cancer Brother No problems noted. Brother No problems noted. Sister No problems noted. Sister Alcohol abuse Social History Smoking/Tobacco Use Status: Current every day Tobacco Type: cigarettes Tobacco: How many years used: 60 Smoking risk assessment performed?: Yes Alcohol Intake: former Drug use: Never Substance use type: does not use Household members: family Housing: house Communication Needs: Hard of Hearing Do you need help understanding health information?: Often Pets and animals: No Sexually active: No Current gender identity: male What is your relationship status?: How often do you talk on the phone with friends or family?: three or more times per week How often do you attend episcopalian or jew services?: decline to answer Do you belong to any clubs or organized social groups?: no Panel score (0-1 are the most socially isolated patients): 1 What type of physical activity do you participate in: occasional exercise Duration: 15-30 minutes/day Monika/Methodist: None Special monika needs: No Seatbelt use: sometimes Drive intox or ride w/intox 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 Do you feel safe at home: Yes Do you feel safe in your relationship?: Yes Exam Const General: cooperative Eyes Pupils: PERRL Other: moist mucous membranes Chest Chest: normal inspection of the chest Resp Effort & Inspection: normal respiratory effort Auscultation: clear to auscultation bilaterally Cardio Rate: regular rate Rhythm: regular rhythm Other: Distal pulses intact GI Other: Mild abdominal tenderness in the suprapubic and left lower quadrant region, no guarding or rebound, no CVA tenderness, no abdominal bruit or pulsatile mass Skin General skin exam: no rashes or lesions noted Neuro General: patient alert and patient oriented x3 Speech: speech normal Extrem Other: No peripheral edema, distal pulses intact Course Vital Signs Vital signs: Vital Signs Temperature 36.6 C 05/02/21 11:54 Pulse 85 05/02/21 11:54 Respiratory Rate 05/02/21 11:54 Blood Pressure 105/62 05/02/21 11:54 Pulse Oximetry 92 05/02/21 11:54 Temperature 36.6 C 05/02/21 11:54 Temperature Source Skin 05/02/21 11:54 Pulse 85 05/02/21 11:54 Respiratory Rate 05/02/21 11:54 Respiratory Effort Non-Labored 05/02/21 11:57 Blood Pressure 105/62 05/02/21 11:54 Blood Pressure Position Sitting 05/02/21 11:54 Pulse Oximetry 92 05/02/21 11:54 Oxygen Delivery Method Room Air 05/02/21 11:54 Oxygen Flow Rate 0 05/02/21 11:54 Pain Level 8 05/02/21 12:42 Lab/Test Results Lab/Test Results: Laboratory Tests Range/Units 05/02/21 05/02/21 05/02/21 11:45 12:35 12:35 WBC (4.4-10.8) 10^3/uL 10.35 RBC (4.36-5.78) 10^6/uL 5.72 Hgb (13.5-17.5) g/dL 17.4 Hct (40.0-50.0) % 52.9 H MCV (80-95) fL 92.5 MCH (27.0-33.0) pg 30.4 MCHC (32.0-36.0) % 32.9 RDW (11.8-14.1) % 15.1 H Plt Count (130-400) 10^3/uL 263 MPV (8.0-11.0) fL 10.5 Immature Gran % 0.3 Neutrophils % 75.0 Lymphocytes % 12.5 Monocytes % 9.3 Eosinophils % 2.3 Basophils % 0.6 Nucleated RBC % % 0 Absolute Neutrophils (1.2-6.7) 10^3/uL 7.77 H Absolute Lymphocytes (1.2-3.4) 10^3/uL 1.29 Absolute Monocytes (0.1-0.8) 10^3/uL 0.96 H Absolute Eosinophils (0.0-0.7) 10^3/uL 0.24 Absolute Basophils (0.0-0.2) 10^3/uL 0.06 Sodium (136-145) mmol/L 142 Potassium (3.5-5.1) mmol/L 3.9 Chloride (98-107) mmol/L 107 Carbon Dioxide (21.0-32.0) mmol/L 24.9 Anion Gap (3-11) mmol/L 10.1 BUN (7-18) mg/dL 22 H Creatinine (0.70-1.30) mg/dL 1.2 Estimated GFR/1.73 m2 (mL/min/1.73m2) 59.35 Glucose (74-106) mg/dL 144 H Calcium (8.5-10.1) mg/dL 9.3 Magnesium (1.8-2.4) mg/dL 2.2 Total Bilirubin (0.2-1.0) mg/dL 0.5 AST (15-37) U/L 13 L ALT (16-63) U/L 23 Alkaline Phosphatase (46-116) U/L 106 Troponin I (<0.06) ng/mL < 0.05 Total Protein (6.4-8.2) g/dL 7.4 Albumin (3.4-5.0) g/dL 3.5 Lipase (73-393) U/L 158 Urine Color (Yellow) Yellow Urine Clarity (Clear) Clear Urine pH (5-8) 5.5 Ur Specific [place] (1.005-1.025) 1.025 Urine Protein (Negative) mg/dL Negative Urine Ketones (Negative) mg/dL Negative Urine Blood (Negative) Negative Urine Nitrite (Negative) Negative Urine Bilirubin (Negative) Negative Urine Urobilinogen (Up TO 0.2) EU/dL 0.2 Ur Leukocyte Esterase (Negative) Negative Urine Glucose (Negative) mg/dL 500 H
[2021-05-02] MEDS: Omnipaque 350 MG/ML 100 ML BTL IJ (13:26)
--- NOTE | 2021-05-02 14:00 | DI.RAD_ITS ---
Exam(s) XR CHEST 2V PA LATERAL EXAM: XR CHEST 2V PA LATERAL CLINICAL HISTORY: leukocytosis TECHNIQUE: 2D digital imaging was performed. COMPARISON: CR XR CHEST 2V PA LATERAL from 04/08/2021 FINDINGS: MEDIASTINUM: Normal. HEART: Cardiomegaly. PULMONARY VASCULATURE: Normal. LUNGS: Diffuse pulmonary fibrosis. No focal consolidating infiltrate. PLEURAL SPACE: No pleural effusion or pneumothorax. BONE:Within normal limits for the patient's age. OTHER FINDINGS:Normal. IMPRESSION: No acute pulmonary findings. DATA REPOSITORY: RADIATION DOSE DELIVERED:
[2021-05-02 15:14] VITALS: BP 126/70; PULSE 67; RESP 16; TEMP 36.2; O2SAT 91
== END 2021-05-02 15:32 | disposition home or self-care (01) ==
PROVIDERS: Emergency Medicine; Emergency Provider Physician Assistant; PCP Family Medicine
DX: K57.32 Diverticulitis of large intestine without perforation or abscess without bleeding (principal); D72.829 Elevated white blood cell count, unspecified; R10.30 Lower abdominal pain, unspecified; R11.2 Nausea with vomiting, unspecified
CPT/HCPCS: 36415; 80053; 83690; 93005; 96361; 96374; 96375; 99285; 71046; 74177; 81003; 83735; 84484; 85025; 93010; 99284; J2405; J3010; J3490

== ENCOUNTER 2021-06-02 02:20 | Outpatient (CLI) | payer MEDICARE, SELFPAY ==
[2021-06-02 12:03] LABS: Hemoglobin A1C 6.9 % (<5.7)
== END 2021-06-02 02:21 | disposition home or self-care (01) ==
LOC: LBO 02:20
PROVIDERS: PCP Family Medicine; Visit Provider Family Medicine
DX: E11.9 Type 2 diabetes mellitus without complications (principal)
CPT/HCPCS: 36415; 83036

== ENCOUNTER 2021-06-06 04:01 | Outpatient (CLI) | payer MEDICARE, SELFPAY ==
--- NOTE | 2021-06-06 07:45 | DI.CTLCSR_ITS ---
Exam(s) CT CHEST LUNG CANCER SCREEN EXAM: CT CHEST LUNG CANCER SCREEN CLINICAL HISTORY: Screening for lung cancer,CURRENT SMOKER,F17.210 TECHNIQUE: Imaging Protocol: Axial computed tomography images with coronal and sagittal reformatted images were created and reviewed COMPARISON: CT CT CHEST LUNG CANCER SCREEN from 05/31/2020 FINDINGS: Tracheobronchial tree: Patent where visualized. Pulmonary parenchyma: No consolidation or dominant measurable mass. Centrilobular and paraseptal emph ysematous changes are present. Pulmonary fibrosis is seen in the lung bases. Lung Nodules: There is a stable 7 mm nodule in the medial aspect of the right upper lobe. Mediastinum and Delilah: No dominant adenopathy or fluid collection. Pleura: No effusion or pneumothorax. Heart: The heart is not dilated. Moderate coronary artery calcification. No pericardial effusion. Aorta: Thoracic aorta non-dilated.Atherosclerosis. Upper abdomen: Unremarkable. Soft Tissues: Unremarkable. Bones: Within normal limits. IMPRESSION: Stable pulmonary nodule. No new pulmonary nodules. Lung RADS Cat 2 - Benign Appearance / Behavior: Nodules with a very low likelihood of becoming a clin ically active cancer due to size or lack of growth Lung-RADS 1.0 CATEGORIES: Category 0 - Prior chest CT exam(s) being located for comparison. Category 1 - Annual screening in 12 months. No nodules or definitely benign nodules. Category 2 - Annual screening in 12 months. Benign appearance. Nodules with low likelihood of becomin g active cancer. Category 3 - 6-month follow-up. Probably benign. Short-term follow-up suggested. Nodules with low lik elihood of becoming active cancer. Category 4A - 3-month follow-up and CT/PET if >8 mm in size. Suspicious finding. Findings which requi re additional testing. Category 4B - Findings which require additional testing and tissue sampling. Suspicious finding. Modifier S- Potentially clinically significant finding. (Non lung cancer) RADIATION DOSE DELIVERED: 80.28mGy.cm Total DLP 1.84mGy CTDIvol 80.28mGy.cm Total DLP 1.84mGy CTDIvol DATA REPOSITORY: All CT scans at this facility are submitted to the National Radiology Data Registry (NRDR) Dose Index Registry (DIR) with the [employer] ([employer]). RADIATION OPTIMIZATION: All CT scans at this facility use at least one of these dose optimization te chniques: automated exposure control; mA and/or kV adjustment per patient size (includes targeted exa ms where dose is matched to clinical indication); or iterative reconstruction.
== END 2021-06-06 04:21 ==
PROVIDERS: PCP Family Medicine; Visit Provider Family Medicine
DX: F17.210 Nicotine dependence, cigarettes, uncomplicated (principal); Z12.2 Encounter for screening for malignant neoplasm of respiratory organs; R91.1 Solitary pulmonary nodule
CPT/HCPCS: 71271

== ENCOUNTER 2021-06-16 02:26 | Outpatient (RCR) | payer MEDICARE, SELFPAY ==
[2021-03-13 00:02] VITALS: BP 142/81; PULSE 57; RESP 20; TEMP 36.6
[2021-06-16] VITALS (8 sets, daily range): BP systolic 120–142; BP diastolic 71–86; PULSE 62–73; RESP 18; TEMP 36.4–36.6; O2SAT 91–94
[2021-06-16] MEDS: diphenhydrAMINE 25 MG CAP PO (08:49)
[2021-06-16] MEDS: methylPREDNISolone SUCC 125 MG VIAL 50 MG IVP (08:49)
[2021-06-16] MEDS: Acetaminophen 325 MG TAB 650 MG PO (08:49)
[2021-06-16] MEDS: Normal Saline Flush 10 ML SYR IVP (08:52)
[2021-06-16] MEDS: riTUXimab-PVVR 1,000 MG in Normal Saline 150 ML 12.5 MG IVPB (09:40)
== END 2021-07-13 23:59 | disposition home or self-care (01) ==
LOC: INF 02:26
PROVIDERS: PCP Family Medicine; Visit Provider Nurse Practitioner Acute Care
DX: M06.9 Rheumatoid arthritis, unspecified (principal)
CPT/HCPCS: 96365; 96366; 96375; J2930; Q5119

== ENCOUNTER → 2021-08-05 09:50 | Outpatient (BNVA) | payer MEDICARE, SELFPAY | PROVIDERS: PCP Family Medicine; Referring Provider Family Medicine; Visit Provider Urology | DX: N40.1 Benign prostatic hyperplasia with lower urinary tract symptoms (principal) | CPT/HCPCS: 81003; 99213 ==

== ENCOUNTER 2021-08-29 20:34 | Outpatient (REF) | payer MEDICARE, SELFPAY ==
[2021-08-29 19:35] LABS: COMMENT (LAB VIEW ONLY) 65.42 mg/dL; Microalb ug/mg Crea 11.3 ug/mg Cr
== END 2021-08-29 20:35 | disposition home or self-care (01) ==
LOC: LBN 20:34
PROVIDERS: PCP Family Medicine; Visit Provider Family Medicine
DX: E11.9 Type 2 diabetes mellitus without complications (principal)
CPT/HCPCS: 82043; 82570

== ENCOUNTER 2021-10-28 00:52 | Outpatient (RCR) | payer MEDICARE, SELFPAY ==
[2021-07-14 00:01] VITALS: BP 142/83; PULSE 73; RESP 18; TEMP 36.6
[2021-10-28] VITALS (9 sets, daily range): BP systolic 127–160; BP diastolic 69–83; PULSE 54–70; RESP 17–18; TEMP 36.2–36.7; O2SAT 94–100
[2021-10-28] MEDS: diphenhydrAMINE 25 MG CAP PO (07:46)
[2021-10-28] MEDS: Acetaminophen 325 MG TAB 650 MG PO (07:46)
[2021-10-28] MEDS: methylPREDNISolone SUCC 125 MG VIAL 50 MG IVP (07:47)
[2021-10-28] MEDS: riTUXimab-PVVR 1,000 MG in Normal Saline 150 ML 62.5 MG IVPB (08:13)
[2021-10-28] MEDS: Normal Saline Flush 10 ML SYR IVP (08:14)
== END 2021-11-10 23:59 | disposition home or self-care (01) ==
LOC: INF 00:52
PROVIDERS: PCP Family Medicine; Visit Provider Nurse Practitioner Acute Care
DX: M06.9 Rheumatoid arthritis, unspecified (principal)
CPT/HCPCS: 96365; 96366; 96374; J2930; Q5119

== ENCOUNTER 2021-10-30 20:55 | Emergency (ER) | payer MEDICARE, SELFPAY ==
[2021-10-30 20:58] VITALS: BP 115/62; PULSE 87; RESP 14; TEMP 36.8; O2SAT 92
--- NOTE | 2021-10-30 20:59 | ED.GENADUL_ITS ---
Discharge Plan Disposition Patient Disposition: HOME Condition: Good Discharge Details Clinical Impression: Cat scratch fever Primary Care Provider: Mike Burns ED Provider: Anton Rogers [place] Meds and New Rx's Prescriptions: New azithromycin 250 mg tablet 250 mg PO HS 4 Days Qty: 4 0RF Rx Instructions: start on day 2 of therapy No Action aspirin 81 mg tablet,chewable 81 mg PO DAILY 0RF ezetimibe 10 mg tablet 10 mg PO DAILY Qty: 30 11RF albuterol sulfate [Ventolin HFA] 90 mcg/actuation HFA aerosol inhaler 2 inh INHALATION Q6H PRN (Reason: bronchospasm) Qty: 8.5 3RF amlodipine 5 mg tablet 5 mg PO BID Qty: 180 3RF atorvastatin 80 mg tablet 80 mg PO QHS Qty: 90 3RF clopidogrel [Plavix] 75 mg tablet 75 mg PO DAILY Qty: 90 4RF Jardiance 25 mg tablet 25 mg PO DAILY Qty: 90 3RF nitroglycerin [Nitrostat] 0.4 mg tablet, sublingual 0.4 mg Sublingual PRN Qty: 25 11RF Rx Instructions: 1 TAB SL PRN (DME) lancets [FreeStyle Lancets] 28 gauge misc 1 ea Intradermal DAILY Qty: 300 4RF Rx Instructions: test TID (DME) FreeStyle Test Strip 1 strip Miscellaneous DAILY Qty: 300 4RF Rx Instructions: test three times/day sildenafil 100 mg tablet 100 mg PO DAILY PRN (Reason: sexual activity) Qty: 5 12RF Rx Instructions: administer 30 minutes to 4 hours before activity benzonatate [Tessalon Perles] 100 mg capsule 100 mg PO TID PRN (Reason: cough) Qty: 30 0RF insulin glargine 100 unit/mL (3 mL) insulin pen 47 unit SC HS Qty: 45 3RF pantoprazole 40 mg tablet,delayed release (DR/EC) 40 mg PO DAILY Qty: 90 3RF Rx Instructions: TAKE 6 HOURS APART FROM YOUR PLAVIX tamsulosin 0.4 mg capsule 0.4 mg PO DAILY Qty: 30 12RF (DME) Space Chamber Plus 1 EACH spacer 1 ea Miscellaneous PRN Qty: 1 0RF infliximab [Remicade] 100 MG recon soln 1,000 mg IV .[id number] 0RF Label Comments: 05/31/15 Jac[place] [facility] [place]: 1000mg IV infusion every 6 months. Done at [facility] 03/05/17 q 4 months. si budesonide 0.5 mg/2 mL suspension for nebulization 0.5 mg Inhalation BID Qty: 60 11RF Trulicity 0.75 mg/0.5 mL pen injector 0.75 mg SC QWEEK Qty: 6 3RF (DME) pen needle, diabetic [Advocate Pen Needle] 33 gauge x 5/32 needle See Rx Instructions .ROUTE .MEDSUPPLY Qty: 100 3RF Rx Instructions: inject once/day alcohol swabs [BD Alcohol Swabs] Pads, Medicated 1 pad topical QID PRN (Reason: injection) Qty: 200 3RF bupropion HCl 150 mg tablet sustained-release 12 hr 150 mg PO BID Qty: 180 3RF fluticasone propionate 50 mcg/actuation spray,suspension 2 spray NS DAILY Qty: 1 8RF gabapentin 300 mg capsule 300 mg PO TID Qty: 90 5RF Rx Instructions: he wi losartan 50 mg tablet 100 mg PO DAILY Qty: 180 3RF acetaminophen 650 MG tablet extended release 650 mg PO Q8H PRN (Reason: Pain) Qty: 20 0RF epinephrine 0.3 mg/0.3 mL auto-injector 0.3 mg IM ONCE Qty: 2 0RF Rx Instructions: as a single dose; may repeat once ondansetron HCl [Zofran] 4 mg tablet 4 mg PO Q8H PRNQty: 10 0RF Discharge Instructions Instructions: Cat Scratch Disease (ED) Additional Instructions: This is an infection of the lymph nodes likely related to the cat scratches on your arm. Antibiotics should resolve the problem. Warm compresses and Tylenol or Motrin will help with the pain and swelling. Follow up with your doctor next week for recheck. Return to ED for high fever, arm pain/swelling/redness, confusion, vomiting, other worsening changes. Referrals: Mike Burns MD [Primary Care Provider] - Discharge Data Discharge Date/Time-TO BE ENTERED AT DEPARTURE: 10/30/21 21:28 Medical Decision Making Given the multiple scratch jeff on his arm as well as significant, tender, mobile nodes in the right axilla this is likely cat scratch fever. Otherwise feels well and vital signs are good. No other nodes appreciated. Will start on a azithromycin and continue for 5-day course. Follow-up with primary care next week for reevaluation. Return to ED for fever, neurologic change, worsening pain/swelling/redness in the axilla or arm, other concerns. HPI General Mode of arrival: ambulatory . Date/Time Provider Initiated Documentation: 10/30/21 20:58 . Limitations to Documentation: no limitations . Information obtained by: patient and RN notes reviewed . HPI Narrative: Patient presents to ED with 2 large painful lumps in his right armpit. Patient reports he noticed initially yesterday. They become larger and more painful over the course of today. There has been a small amount of drainage from one. He otherwise feels fine. He denies having fever, chills, cough, shortness of breath, chest pain. He has multiple scratches on both arms more so on the rig ht. He reports that this is from his cat. He denies any pain, swelling, redness in the arm itself. Related Data Home Medications Medication Instructions Recorded Confirmed inhalational spacing device (Space #1 05/27/15 10/30/21 Chamber Plus) infliximab 100 mg intravenous 1,000 mg IV .[id number] vial 05/31/15 10/30/21 solution (Remicade) acetaminophen 650 mg 650 mg PO Q8H PRN #20 tablet.er 04/30/17 10/30/21 tablet,extended release budesonide 0.5 mg/2 mL suspension 0.5 mg (2 mL) INHALATION BID #60 ml 11/08/20 10/30/21 for nebulization dulaglutide 0.75 mg/0.5 mL 0.75 mg (0.5 mL) SC QWEEK #6 ml 11/08/20 10/30/21 subcutaneous pen injector (Trulicity) pen needle, diabetic 33 gauge x #100 each 11/08/20 10/30/21/32 (Advocate Pen Needle) alcohol swabs (BD Alcohol Swabs) 1 pad TOPICAL QID PRN #200 ea 11/15/20 10/30/21 blood sugar diagnostic (FreeStyle #300 strip 11/22/20 10/30/21 Test) lancets 28 gauge (FreeStyle #300 each 11/22/20 10/30/21 Lancets) epinephrine 0.3 mg/0.3 mL 0.3 mg (0.3 mL) IM ONCE #2 ea 03/12/21 10/30/21 injection, auto-injector bupropion HCl 150 mg tablet,12 hr 150 mg PO BID #180 tab 03/14/21 10/30/21 sustained-release benzonatate 100 mg capsule 100 mg PO TID PRN #30 cap 04/17/21 10/30/21 (Tessalon Perles) ondansetron HCl 4 mg tablet 4 mg PO Q8H PRN #10 tab 05/02/21 10/30/21 (Zofran) fluticasone propionate 50 2 spray NS DAILY #1 gm 05/08/21 10/30/21 mcg/actuation nasal spray,suspension gabapentin 300 mg capsule 300 mg PO TID #90 cap 05/08/21 10/30/21 losartan 50 mg tablet 100 mg PO DAILY #180 tab 05/08/21 10/30/21 albuterol sulfate 90 mcg/actuation 2 inh INHALATION Q6H PRN #8.5 gm 05/27/21 10/30/21 aerosol inhaler (Ventolin HFA) amlodipine 5 mg tablet 5 mg PO BID #180 tab 05/27/21 10/30/21 aspirin 81 mg chewable tablet 81 mg PO DAILY 05/27/21 10/30/21 atorvastatin 80 mg tablet 80 mg PO QHS #90 tab 05/27/21 10/30/21 clopidogrel 75 mg tablet (Plavix) 75 mg PO DAILY #90 tab 05/27/21 10/30/21 empagliflozin 25 mg tablet 25 mg PO DAILY #90 tab 05/27/21 10/30/21 (Jardiance) ezetimibe 10 mg tablet 10 mg PO DAILY #30 tab 05/27/21 10/30/21 nitroglycerin 0.4 mg sublingual 0.4 mg SUBLINGUAL PRN #25 tab-cap 05/27/21 10/30/21 tablet (Nitrostat) sildenafil 100 mg tablet 100 mg PO DAILY PRN #5 tab 08/05/21 10/30/21 insulin glargine 100 unit/mL (3 47 unit (0.47 mL) SC HS #45 ml 08/29/21 10/30/21 mL) subcutaneous pen pantoprazole 40 mg tablet,delayed 40 mg PO DAILY #90 tab 08/29/21 10/30/21 release tamsulosin 0.4 mg capsule 0.4 mg PO DAILY #30 cap 08/29/21 10/30/21 azithromycin 250 mg tablet 250 mg PO HS 4 Days #4 tab 10/30/21 Previous Rx's Medication Instructions Recorded acetaminophen 650 mg 650 mg PO Q8H PRN #20 tablet.er 04/30/17 tablet,extended release budesonide 0.5 mg/2 mL suspension 0.5 mg (2 mL) INHALATION BID #60 ml 11/08/20 for nebulization dulaglutide 0.75 mg/0.5 mL 0.75 mg (0.5 mL) SC QWEEK #6 ml 11/08/20 subcutaneous pen injector (InfoVista) pen needle, diabetic 33 gauge x #100 each 11/08/20 (Advocate Pen Needle) alcohol swabs (BD Alcohol Swabs) 1 pad TOPICAL QID PRN #200 ea 11/15/20 blood sugar diagnostic (FreeStyle #300 strip 11/22/20 Test) lancets 28 gauge (FreeStyle #300 each 11/22/20 Lancets) epinephrine 0.3 mg/0.3 mL 0.3 mg (0.3 mL) IM ONCE #2 ea 03/12/21 injection, auto-injector bupropion HCl 150 mg tablet,12 hr 150 mg PO BID #180 tab 03/14/21 sustained-release benzonatate 100 mg capsule 100 mg PO TID PRN #30 cap 04/17/21 (Tessalon Perles) ondansetron HCl 4 mg tablet 4 mg PO Q8H PRN #10 tab 05/02/21 (Zofran) fluticasone propionate 50 2 spray NS DAILY #1 gm 05/08/21 mcg/actuation nasal spray,suspension gabapentin 300 mg capsule 300 mg PO TID #90 cap 05/08/21 losartan 50 mg tablet 100 mg PO DAILY #180 tab 05/08/21 albuterol sulfate 90 mcg/actuation 2 inh INHALATION Q6H PRN #8.5 gm 05/27/21 aerosol inhaler (Ventolin HFA) amlodipine 5 mg tablet 5 mg PO BID #180 tab 05/27/21 atorvastatin 80 mg tablet 80 mg PO QHS #90 tab 05/27/21 clopidogrel 75 mg tablet (Plavix) 75 mg PO DAILY #90 tab 05/27/21 empagliflozin 25 mg tablet 25 mg PO DAILY #90 tab 05/27/21 (Jardiance) ezetimibe 10 mg tablet 10 mg PO DAILY #30 tab 05/27/21 nitroglycerin 0.4 mg sublingual 0.4 mg SUBLINGUAL PRN #25 tab-cap 05/27/21 tablet (Nitrostat) sildenafil 100 mg tablet 100 mg PO DAILY PRN #5 tab 08/05/21 insulin glargine 100 unit/mL (3 47 unit (0.47 mL) SC HS #45 ml 08/29/21 mL) subcutaneous pen pantoprazole 40 mg tablet,delayed 40 mg PO DAILY #90 tab 08/29/21 release tamsulosin 0.4 mg capsule 0.4 mg PO DAILY #30 cap 08/29/21 azithromycin 250 mg tablet 250 mg PO HS 4 Days #4 tab 10/30/21 Allergies Allergy/AdvReac Type Severity Reaction Status Date / Time venom-honey bee Allergy Severe ANAPHYLAXSI Verified 10/30/21 21:04 [bee venom (honey bee)] S Sulfa (Sulfonamide Allergy Unknown unknown Verified 10/30/21 21:04 Antibiotics) leflunomide [From Arava] AdvReac Intermediate DIARRHEA Verified 10/30/21 21:04 metformin AdvReac Intermediate diarrhea Verified 10/30/21 21:04 General STAR: 3 Review of Systems Narrative: As documented in HPI otherwise negative as below. Const: no fever, chills, weakness Resp: no cough, SOB, pleuritic pain CV: no CP, diaphoresis, edema, syncope GI: no abdominal pain, nausea, vomiting, diarrhea Neuro: no headache, numbness, focal weakness, confusion PFSH All Active Problems Cat scratch fever (Acute) Back pain (Acute) Cyst (Acute) Leg pain, right (Acute) Diverticulitis (Chronic) Anaphylaxis due to hymenoptera venom (Acute) Acute exacerbation of chronic obstructive pulmonary disease (Acute) Rash (Acute) Mallet deformity of left ring finger (Acute 11/30/20) with avulsion fracture Otitis media (Acute) Serrated adenoma of colon (Acute ~07/2020) Tubular adenoma (Acute ~07/2020) tubular adenoma x7, repeat colo in 1 year Adenomatous polyps (Acute) Diverticula of colon (Acute) Degenerative lumbar spinal stenosis (Acute) Bilateral hip joint arthritis (Acute) Arthritis of knee, right (Acute) Chronic knee pain (Acute) Acute bilateral low back pain (Acute) Discharge planning issues (Acute) DVT prophylaxis (Acute) Acute hyperglycemia (Acute) Fatigue (Acute) Bradycardia (Acute) Flank pain (Acute) RCA occlusion (Acute) 05/25/19 [facility] [place] elevated myocardial infarction (Acute) ASCVD (arteriosclerotic cardiovascular disease) (Chronic 05/05/13) 2 NEW STENTS 04/22 H/O IMI; angioplasty and stent; [place] , 02/11; CVA/TIA Chronic obstructive lung disease (Chronic) pulmonary fibrosis on chest xray ongoing tobacco use add back budesonide nebs to see if we can improve cough Gastroesophageal reflux disease (Chronic) Hyperlipidemia (Chronic 05/05/13) Rheumatoid arthritis (Chronic 05/05/13) [facility] [place] Depressive disorder (Chronic) Diverticulitis of colon (Acute) History of incisional hernia repair (Acute) History of knee surgery (Acute) Lipoma (Acute) Erectile dysfunction (Chronic) Tubular adenoma (Acute) 11/20 COLONOSCOPY: ONE TUBULOVILLOUS ADENOMA & TWO TUBULAR ADENOMAS. 05/22/13: DR. Mateusz COPELAND:TUBULAR ADENOMAS 11/13/16: Dr Jian Crump: tublular and tubulovillous adenomas Smoker (Acute) Polyp of colon (Acute) 11/20 COLONOSCOPY: ONE TUBULOVILLOUS ADENOMA & TWO TUBULAR ADENOMAS. 05/22/13: DR. Mateusz COPELAND:TUBULAR ADENOMAS 11/13/16: Dr Jian Crump: tublular and tubulovillous adenomas Palpitations (Acute 11/04/12) multiple PVCs, bradycardia (2013) ([facility] Abraham, echo normal LVEF and stress test neg ischemia) Male erectile disorder (Acute 08/29/13) Kidney stone (Acute 09/14/14) recurrent x3 on left [facility] [place] 10/12/16[place]; F/U Dr. Fair Esophageal reflux (Acute) Bilateral kidney stones (Acute 10/27/16) Medical History BPH loc w urin obs/LUTS COPD (chronic obstructive pulmonary disease) CVA (cerebral vascular accident) (11/21/17) Diabetes mellitus (05/05/13) check A1c and creat Hypertension same meds, good BP here today Myocardial infarction Surgical History Colonoscopy - MAC (05/16/13) Colonoscopy - MAC (11/13/16) Colostomy (~2006) TEMP W/ REVISION Excision, Lipoma (05/19/16) posterior neck Hernia Repair, Incisional KNEE REPAIR RIGHT RESECTION ANGIOFIBROMA;RIGHT FOOT 02/04/18 Stented coronary artery 05/25/19 [facility] s/p stent of old stent-KB Family History Mother Essential hypertension Heart disease Stroke Father Stroke Brother Heart disease Family History Diabetes Heart disease Cancer Brother No problems noted. Brother No problems noted. Sister No problems noted. Sister Alcohol abuse Social History Smoking/Tobacco Use Status: Current every day Tobacco Type: cigarettes Tobacco: How many years used: 60 Quit status: has quit before Second Hand Exposure: Yes Smoking risk assessment performed?: Yes Alcohol Intake: former Drug use: Never Substance use type: does not use Household members: family Housing: house Communication Needs: None Do you need help understanding health information?: Rarely Pets and animals: Yes Pets and animals: cat(s) Sexually active: No Current gender identity: male What is your relationship status?: How often do you talk on the phone with friends or family?: three or more times per week How often do you get together with friends or relatives?: twice per week How often do you attend mandaeism or rastafarian services?: decline to answer Do you belong to any clubs or organized social groups?: no Panel score (0-1 are the most socially isolated patients): 1 What type of physical activity do you participate in: walking Duration: < 15 minutes/day Frequency: 1-2 times per week Monika/Mu-Ism: None Special monika needs: No Seatbelt use: sometimes Helmet use: No 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 HEENT: NC/AT. Normal facial exam. Eyes: Normal conjunctiva and sclera. Neck: Supple. Trachea midline. Lungs: Normal respiratory effort. Cor: RRR. Good radial pulses. Neuro: A+O x 3. Normal speech, mentation, gait. Cranial nerves II - XII grossly intact. No gross motor or sensory deficit. Ext: No C/C/E. Two > 1 cm firm tender mobile nodes in right axilla with overlying redness. No nodes appreciated elsewhere. Skin: Warm and dry without rash or erythema. Multiple healed scratch jeff on by UE.
[2021-10-30] MEDS: Ibuprofen 600 MG TAB PO (21:23)
[2021-10-30] MEDS: Azithromycin 250 MG TAB 500 MG PO (21:23)
== END 2021-10-30 21:28 | disposition home or self-care (01) ==
LOC: ER 21:25
PROVIDERS: Emergency Provider Emergency Medicine; PCP Family Medicine
DX: A28.1 Cat-scratch disease (principal)
CPT/HCPCS: 99283

== ENCOUNTER 2021-11-03 16:28 | Outpatient (REF) | payer MEDICARE, SELFPAY | END 2021-11-03 16:29 | disposition home or self-care (01) | LOC: LBN 16:28 | PROVIDERS: PCP Family Medicine; Visit Provider Family Medicine | DX: L02.411 Cutaneous abscess of right axilla (principal) | CPT/HCPCS: 87077; 87070; 87186; 87205 ==

== ENCOUNTER 2021-11-06 01:53 | Outpatient (CLI) | payer MEDICARE, SELFPAY ==
[2021-11-06 12:36] LABS: Abs Immature Grans 0.03 10^3/uL (0.0-0.06); Absolute Basophil Count 0.08 10^3/uL (0.0-0.2); Absolute Eosinophil Count 0.34 10^3/uL (0.0-0.7); Absolute Lymphocyte Count 1.54 10^3/uL (1.2-3.4); Absolute Monocyte Count 0.72 10^3/uL (0.1-0.8); Absolute Neutrophil Count 4.61 10^3/uL (1.2-6.7); Basophils % 1.1; Eosinophils % 4.6; HCT 50.8 % (40.0-50.0); HGB 16.3 g/dL (13.5-17.5); Immature Grans % 0.4; MCH 30.3 pg (27.0-33.0); MCHC 32.1 % (32.0-36.0); MCV 94.4 fL (80-95); MPV 11.3 fL (8.0-11.0); Monocytes % 9.8; Neutrophils % 63.1; Nucleated RBC 0 %; Platelet Count 241 10^3/uL (130-400); RBC 5.38 10^6/uL (4.36-5.78); RDW 14.6 % (11.8-14.1); RDW-SD 51.4 fL; WBC 7.32 10^3/uL (4.4-10.8)
[2021-11-06 12:41] LABS: ESR 22 mm/hr (0-20)
[2021-11-06 13:22] LABS: C-Reactive Protein 0.48 mg/dL (0.0-0.3)
[2021-11-07 09:11] LABS: IgG 841 mg/dL (610-1,616)
== END 2021-11-06 01:54 | disposition home or self-care (01) ==
PROVIDERS: PCP Family Medicine; Visit Provider Internal Medicine Rheumatology
DX: Z79.899 Other long term (current) drug therapy (principal); M05.79 Rheumatoid arthritis with rheumatoid factor of multiple sites without organ or systems involvement; D84.9 Immunodeficiency, unspecified
CPT/HCPCS: 36415; 82784; 85652; 85025; 86140

== ENCOUNTER 2021-11-12 01:52 | Outpatient (CLI) | payer MEDICARE, SELFPAY ==
[2021-11-12 11:01] LABS: Abs Immature Grans 0.04 10^3/uL (0.0-0.06); Absolute Basophil Count 0.09 10^3/uL (0.0-0.2); Absolute Lymphocyte Count 1.48 10^3/uL (1.2-3.4); Absolute Monocyte Count 0.92 10^3/uL (0.1-0.8); Absolute Neutrophil Count 6.06 10^3/uL (1.2-6.7); Eosinophils % 4.4; HGB 16.8 g/dL (13.5-17.5); Immature Grans % 0.4; Lymphocytes % 16.5; MCHC 32.3 % (32.0-36.0); MCV 92.9 fL (80-95); MPV 11.1 fL (8.0-11.0); Monocytes % 10.2; Neutrophils % 67.5; Nucleated RBC 0 %; Platelet Count 217 10^3/uL (130-400); RDW 14.7 % (11.8-14.1); RDW-SD 50.8 fL; WBC 8.99 10^3/uL (4.4-10.8)
[2021-11-12 11:05] LABS: ESR 16 mm/hr (0-20)
[2021-11-12 13:22] LABS: C-Reactive Protein 0.39 mg/dL (0.0-0.3)
[2021-11-13 08:45] LABS: IgG 795 mg/dL (610-1,616)
[2021-11-13 13:00] LABS: SARS-CoV-2 Spike Ab, Interp Negative; SARS-CoV-2 Spike Ab, Quant <0.40 U/mL
== END 2021-11-12 01:53 | disposition home or self-care (01) ==
LOC: LBO 01:52
PROVIDERS: PCP Family Medicine; Visit Provider Internal Medicine Rheumatology
DX: M05.79 Rheumatoid arthritis with rheumatoid factor of multiple sites without organ or systems involvement (principal); D84.9 Immunodeficiency, unspecified; Z79.899 Other long term (current) drug therapy
CPT/HCPCS: 36415; 82784; 85652; 86769; 85025; 86140

== ENCOUNTER 2021-12-28 19:54 | Emergency (ER) | payer MEDICARE, SELFPAY ==
[2021-12-28 19:59] VITALS: BP 99/50; PULSE 80; RESP 16; TEMP 36.8; O2SAT 91
[2021-12-28 20:07] VITALS: BP 106/52
--- NOTE | 2021-12-28 20:08 | ED.GENADUL_ITS ---
Discharge Plan Disposition Patient Disposition: HOME Condition: Good Discharge Details Clinical Impression: Adverse effect of mRNA COVID-19 vaccine Primary Care Provider: Mike Burns ED Provider: Nghia Cabrera Home Meds and New Rx's Prescriptions: New loratadine 10 mg capsule 10 mg PO DAILY Qty: 10 0RF Continued aspirin 81 mg tablet,chewable 81 mg PO DAILY 0RF ezetimibe 10 mg tablet 10 mg PO DAILY Qty: 30 11RF albuterol sulfate [Ventolin HFA] 90 mcg/actuation HFA aerosol inhaler 2 inh INHALATION Q6H PRN (Reason: bronchospasm) Qty: 8.5 3RF amlodipine 5 mg tablet 5 mg PO BID Qty: 180 3RF atorvastatin 80 mg tablet 80 mg PO QHS Qty: 90 3RF clopidogrel [Plavix] 75 mg tablet 75 mg PO DAILY Qty: 90 4RF Jardiance 25 mg tablet 25 mg PO DAILY Qty: 90 3RF nitroglycerin [Nitrostat] 0.4 mg tablet, sublingual 0.4 mg Sublingual PRN Qty: 25 11RF Rx Instructions: 1 TAB SL PRN (DME) lancets [FreeStyle Lancets] 28 gauge misc 1 ea Intradermal DAILY Qty: 300 4RF Rx Instructions: test TID (DME) FreeStyle Test Strip 1 strip Miscellaneous DAILY Qty: 300 4RF Rx Instructions: test three times/day doxycycline hyclate 100 mg capsule 100 mg PO BID Qty: 14 0RF sildenafil 100 mg tablet 100 mg PO DAILY PRN (Reason: sexual activity) Qty: 5 12RF Rx Instructions: administer 30 minutes to 4 hours before activity insulin glargine 100 unit/mL (3 mL) insulin pen 47 unit SC HS Qty: 45 3RF pantoprazole 40 mg tablet,delayed release (DR/EC) 40 mg PO DAILY Qty: 90 3RF Rx Instructions: TAKE 6 HOURS APART FROM YOUR PLAVIX tamsulosin 0.4 mg capsule 0.4 mg PO DAILY Qty: 30 12RF (DME) Space Chamber Plus 1 EACH spacer 1 ea Miscellaneous PRN Qty: 1 0RF infliximab [Remicade] 100 MG recon soln 1,000 mg IV .[id number] 0RF Label Comments: 05/31/15 Jacqui at [facility] Rheumatology reports: 1000mg IV infusion every 6 months. Done at [facility]. DL 03/05/17 q 4 months. si budesonide 0.5 mg/2 mL suspension for nebulization 0.5 mg Inhalation BID Qty: 60 11RF alcohol swabs [BD Alcohol Swabs] Pads, Medicated 1 pad topical QID PRN (Reason: injection) Qty: 200 3RF bupropion HCl 150 mg tablet sustained-release 12 hr 150 mg PO BID Qty: 180 3RF fluticasone propionate 50 mcg/actuation spray,suspension 2 spray NS DAILY Qty: 1 8RF losartan 50 mg tablet 100 mg PO DAILY Qty: 180 3RF gabapentin 300 mg capsule See Rx Instructions .ROUTE .COMPLEX Qty: 90 5RF Dose Instruction: TAKE ONE CAPSULE BY MOUTH THREE TIMES A DAY Rx Instructions: TAKE ONE CAPSULE BY MOUTH THREE TIMES A DAY (DME) pen needle, diabetic [Advocate Pen Needle] 33 gauge x 5/32 needle See Rx Instructions .ROUTE .MEDSUPPLY Qty: 100 3RF Rx Instructions: inject once/day Trulicity 0.75 mg/0.5 mL pen injector 0.75 mg SC QWEEK Qty: 6 3RF acetaminophen 650 MG tablet extended release 650 mg PO Q8H PRN (Reason: Pain) Qty: 20 0RF epinephrine 0.3 mg/0.3 mL auto-injector 0.3 mg IM ONCE Qty: 2 0RF Rx Instructions: as a single dose; may repeat once ondansetron HCl [Zofran] 4 mg tablet 4 mg PO Q8H PRNQty: 10 0RF Discharge Instructions Instructions: Urticaria (ED) Additional Instructions: Please take the loratadine as directed to help with the rash. Please take Tylenol as needed to help with any swelling or tenderness. At this time there is no evidence of infection, and it seems like it is actually getting better. Please follow-up closely with your primary care provider for reassessment in the next 48 to 72 hours. If you notice any worsening of your symptoms, or any new symptoms such as vomiting, diarrhea, fever, chills, shortness of breath, chest pain, numbness, weakness, or fainting , please return immediately to the emergency department for reevaluation. Please follow up with your primary care provider as soon as possible for reassessment and reevaluation. As always, it was a pleasure participating in your medical care today. Referrals: Mike Burns MD [Primary Care Provider] - Medical Decision Making 76 this is a 76-year-old male with a past medical history of COPD, BPH, CVA, diabetes mellitus, hypertension, previous [place] on Plavix, who presents today for reaction on his left arm after receiving the Covid vaccine with subsequent itchy rash 5 days ago the patient received his booster in his left arm for his Covid vaccine. Shortly thereafter he developed some swelling, redness, and tenderness at the injection site, as well as mild rash in that area. The redness and swelling and tenderness is resolved but he still has a mildly persistent rash that he describes is very itchy in that area. He denies any difficulty swallowing, drinking, chest pain, shortness of breath, vomiting, diarrhea, new lesions in his mouth, or other complaints. He denies previously having a reaction to the other Covid vaccines. He denies any arm swelling, or any other arm tenderness. No numbness or tingling. No other complaints at this time. Patient has not taken any Benadryl, Tylenol, or Motrin for the pain or rash. Physical exam demonstrates a slightly elevated red blanching urticarial-like scaly rash that is ovoid in shape with a diameter of 6 cm x 10 cm. Negative Nikolsky sign. No large vesicles or bulla. No palpable purpura. No oral lesions. No mucosal lesions. No evidence of severe cellulitis. No evidence of vaccine preventable rash. No current clinical evidence of staph scalded skin syndrome, erythema multiforme, erythema migrans, toxic epidermal necrolysis, Lucas-Vern syndrome, Kawasaki-like rash, meningococcemia, pemphigus vulgaris, or necrotizing fasciitis. Symptoms appear consistent with a mild reaction, likely from the vaccine administration. No evidence of cellulitis. No warmth to suggest infection. Will recommend Tylenol and loratadine as needed for itching. Discussed red flags which to return. I have extensively reviewed the treatment plan and discharge instructions with the patient. I have addressed all patient concerns at this time. The patient was made aware of what symptoms to monitor for that would warrant a return to the emergency department. Discussed the plan with the patient, they demonstrate verbal understanding and agreement with our assessment and plan at this time. The documentation in this chart was dictated using [employer] dictation software. Please excuse any dictation errors. HPI General Date/Time Provider Initiated Documentation: 12/28/21 19:58 . HPI Narrative: 76 this is a 76-year-old male with a past medical history of COPD, BPH, CVA, diabetes mellitus, hypertension, previous TX on Plavix, who presents today for reaction on his left arm after receiving the Covid vaccine. 5 days ago the patient received his booster in his left arm for his Covid vaccine. Shortly thereafter he developed some swelling, redness, and tenderness at the injection site, as well as mild rash in that area. The redness and swelling and tenderness is resolved but he still has a mildly persistent rash that he describes is very itchy in that area. He denies any difficulty swallowing, drinking, chest pain, shortness of breath, vomiting, diarrhea, new lesions in his mouth, or other complaints. He denies previously having a reaction to the other Covid vaccines. He denies any arm swelling, or any other arm tenderness. No numbness or tingling. No other complaints at this time. Patient has not taken any Benadryl, Tylenol, or Motrin for the pain or rash. Related Data Home Medications Medication Instructions Recorded Confirmed inhalational spacing device (Space #1 05/27/15 12/28/21 Chamber Plus) infliximab 100 mg intravenous 1,000 mg IV .[id number] vial 05/31/15 12/28/21 solution (Remicade) acetaminophen 650 mg 650 mg PO Q8H PRN #20 tablet.er 04/30/17 12/28/21 tablet,extended release budesonide 0.5 mg/2 mL suspension 0.5 mg (2 mL) INHALATION BID #60 ml 11/08/20 12/28/21 for nebulization alcohol swabs (BD Alcohol Swabs) 1 pad TOPICAL QID PRN #200 ea 11/15/20 12/28/21 blood sugar diagnostic (FreeStyle #300 strip 11/22/20 12/28/21 Test) lancets 28 gauge (FreeStyle #300 each 11/22/20 12/28/21 Lancets) epinephrine 0.3 mg/0.3 mL 0.3 mg (0.3 mL) IM ONCE #2 ea 03/12/21 12/28/21 injection, auto-injector bupropion HCl 150 mg tablet,12 hr 150 mg PO BID #180 tab 03/14/21 12/28/21 sustained-release ondansetron HCl 4 mg tablet 4 mg PO Q8H PRN #10 tab 05/02/21 12/28/21 (Zofran) fluticasone propionate 50 2 spray NS DAILY #1 gm 05/08/21 12/28/21 mcg/actuation nasal spray,suspension losartan 50 mg tablet 100 mg PO DAILY #180 tab 05/08/21 12/28/21 albuterol sulfate 90 mcg/actuation 2 inh INHALATION Q6H PRN #8.5 gm 05/27/21 12/28/21 aerosol inhaler (Ventolin HFA) amlodipine 5 mg tablet 5 mg PO BID #180 tab 05/27/21 12/28/21 aspirin 81 mg chewable tablet 81 mg PO DAILY 05/27/21 12/28/21 atorvastatin 80 mg tablet 80 mg PO QHS #90 tab 05/27/21 12/28/21 clopidogrel 75 mg tablet (Plavix) 75 mg PO DAILY #90 tab 05/27/21 12/28/21 empagliflozin 25 mg tablet 25 mg PO DAILY #90 tab 05/27/21 12/28/21 (Jardiance) ezetimibe 10 mg tablet 10 mg PO DAILY #30 tab 05/27/21 12/28/21 nitroglycerin 0.4 mg sublingual 0.4 mg SUBLINGUAL PRN #25 tab-cap 05/27/21 12/28/21 tablet (Nitrostat) sildenafil 100 mg tablet 100 mg PO DAILY PRN #5 tab 08/05/21 12/28/21 insulin glargine 100 unit/mL (3 47 unit (0.47 mL) SC HS #45 ml 08/29/21 12/28/21 mL) subcutaneous pen pantoprazole 40 mg tablet,delayed 40 mg PO DAILY #90 tab 08/29/21 12/28/21 release tamsulosin 0.4 mg capsule 0.4 mg PO DAILY #30 cap 08/29/21 12/28/21 gabapentin 300 mg capsule See Rx Instructions .ROUTE 10/31/21 12/28/21 .COMPLEX #90 cap doxycycline hyclate 100 mg capsule 100 mg PO BID #14 cap 11/03/21 12/28/21 pen needle, diabetic 33 gauge x #100 each 11/10/21 12/28/21/32 (Advocate Pen Needle) dulaglutide 0.75 mg/0.5 mL 0.75 mg (0.5 mL) SC QWEEK #6 ml 12/05/21 12/28/21 subcutaneous pen injector (Trulicity) loratadine 10 mg capsule 10 mg PO DAILY #10 cap 12/28/21 Previous Rx's Medication Instructions Recorded acetaminophen 650 mg 650 mg PO Q8H PRN #20 tablet.er 04/30/17 tablet,extended release budesonide 0.5 mg/2 mL suspension 0.5 mg (2 mL) INHALATION BID #60 ml 11/08/20 for nebulization alcohol swabs (BD Alcohol Swabs) 1 pad TOPICAL QID PRN #200 ea 11/15/20 blood sugar diagnostic (FreeStyle #300 strip 11/22/20 Test) lancets 28 gauge (FreeStyle #300 each 11/22/20 Lancets) epinephrine 0.3 mg/0.3 mL 0.3 mg (0.3 mL) IM ONCE #2 ea 03/12/21 injection, auto-injector bupropion HCl 150 mg tablet,12 hr 150 mg PO BID #180 tab 03/14/21 sustained-release ondansetron HCl 4 mg tablet 4 mg PO Q8H PRN #10 tab 05/02/21 (Zofran) fluticasone propionate 50 2 spray NS DAILY #1 gm 05/08/21 mcg/actuation nasal spray,suspension losartan 50 mg tablet 100 mg PO DAILY #180 tab 05/08/21 albuterol sulfate 90 mcg/actuation 2 inh INHALATION Q6H PRN #8.5 gm 05/27/21 aerosol inhaler (Ventolin HFA) amlodipine 5 mg tablet 5 mg PO BID #180 tab 05/27/21 atorvastatin 80 mg tablet 80 mg PO QHS #90 tab 05/27/21 clopidogrel 75 mg tablet (Plavix) 75 mg PO DAILY #90 tab 05/27/21 empagliflozin 25 mg tablet 25 mg PO DAILY #90 tab 05/27/21 (Jardiance) ezetimibe 10 mg tablet 10 mg PO DAILY #30 tab 05/27/21 nitroglycerin 0.4 mg sublingual 0.4 mg SUBLINGUAL PRN #25 tab-cap 05/27/21 tablet (Nitrostat) sildenafil 100 mg tablet 100 mg PO DAILY PRN #5 tab 08/05/21 insulin glargine 100 unit/mL (3 47 unit (0.47 mL) SC HS #45 ml 08/29/21 mL) subcutaneous pen pantoprazole 40 mg tablet,delayed 40 mg PO DAILY #90 tab 08/29/21 release tamsulosin 0.4 mg capsule 0.4 mg PO DAILY #30 cap 08/29/21 gabapentin 300 mg capsule See Rx Instructions .ROUTE 10/31/21 .COMPLEX #90 cap doxycycline hyclate 100 mg capsule 100 mg PO BID #14 cap 11/03/21 pen needle, diabetic 33 gauge x #100 each 11/10/21 (Advocate Pen Needle) dulaglutide 0.75 mg/0.5 mL 0.75 mg (0.5 mL) SC QWEEK #6 ml 12/05/21 subcutaneous pen injector (Trulicity) loratadine 10 mg capsule 10 mg PO DAILY #10 cap 12/28/21 Allergies Allergy/AdvReac Type Severity Reaction Status Date / Time venom-honey bee Allergy Severe ANAPHYLAXSI Verified 12/28/21 20:03 [bee venom (honey bee)] S Sulfa (Sulfonamide Allergy Unknown unknown Verified 12/28/21 20:03 Antibiotics) leflunomide [From Arava] AdvReac Intermediate DIARRHEA Verified 12/28/21 20:03 metformin AdvReac Intermediate diarrhea Verified 12/28/21 20:03 General Stated Complaint: Cellulitis STAR: 4 Review of Systems All systems reviewed & are unremarkable except as noted in HPI and below PFSH All Active Problems Adverse effect of mRNA COVID-19 vaccine (Acute) Back pain (Acute) Cyst (Acute) Leg pain, right (Acute) Diverticulitis (Chronic) Anaphylaxis due to hymenoptera venom (Acute) Acute exacerbation of chronic obstructive pulmonary disease (Acute) Rash (Acute) Mallet deformity of left ring finger (Acute 11/30/20) with avulsion fracture Otitis media (Acute) Serrated adenoma of colon (Acute ~07/2020) Tubular adenoma (Acute ~07/2020) tubular adenoma x7, repeat colo in 1 year Adenomatous polyps (Acute) Diverticula of colon (Acute) Degenerative lumbar spinal stenosis (Acute) Bilateral hip joint arthritis (Acute) Arthritis of knee, right (Acute) Chronic knee pain (Acute) Acute bilateral low back pain (Acute) Discharge planning issues (Acute) DVT prophylaxis (Acute) Acute hyperglycemia (Acute) Fatigue (Acute) Bradycardia (Acute) Flank pain (Acute) RCA occlusion (Acute) 05/25/19 [facility] Non-ST elevated myocardial infarction (Acute) ASCVD (arteriosclerotic cardiovascular disease) (Chronic 05/05/13) 2 NEW STENTS 04/22 H/O IMI; angioplasty and stent; [place] , 02/11; CVA/TIA Chronic obstructive lung disease (Chronic) pulmonary fibrosis on chest xray ongoing tobacco use add back budesonide nebs to see if we can improve cough Gastroesophageal reflux disease (Chronic) Hyperlipidemia (Chronic 05/05/13) Rheumatoid arthritis (Chronic 05/05/13) [facility] [place] Depressive disorder (Chronic) Diverticulitis of colon (Acute) History of incisional hernia repair (Acute) History of knee surgery (Acute) Lipoma (Acute) Erectile dysfunction (Chronic) Tubular adenoma (Acute) 11/20 COLONOSCOPY: ONE TUBULOVILLOUS ADENOMA & TWO TUBULAR ADENOMAS. 05/22/13: DR. Mateusz COPELAND:TUBULAR ADENOMAS 11/13/16: Dr Jian Crump: tublular and tubulovillous adenomas Smoker (Acute) Polyp of colon (Acute) 11/20 COLONOSCOPY: ONE TUBULOVILLOUS ADENOMA & TWO TUBULAR ADENOMAS. 05/22/13: DR. Mateusz COPELAND:TUBULAR ADENOMAS 11/13/16: Dr iJan Crump: tublular and tubulovillous adenomas Palpitations (Acute 11/04/12) multiple PVCs, bradycardia (2013) ([facility], Dr Abraham, echo normal LVEF and stress test neg ischemia) Male erectile disorder (Acute 08/29/13) Kidney stone (Acute 09/14/14) recurrent x3 on left [facility] Urology 10/12/16-[facility]; F/U Dr. Fair Esophageal reflux (Acute) Bilateral kidney stones (Acute 10/27/16) Medical History BPH loc w urin obs/LUTS COPD (chronic obstructive pulmonary disease) CVA (cerebral vascular accident) (11/21/17) Diabetes mellitus (05/05/13) check A1c and creat Hypertension same meds, good BP here today Myocardial infarction Surgical History Colonoscopy - MAC (05/16/13) Colonoscopy - MAC (11/13/16) Colostomy (~2006) TEMP W/ REVISION Excision, Lipoma (05/19/16) posterior neck Hernia Repair, Incisional KNEE REPAIR RIGHT RESECTION ANGIOFIBROMA;RIGHT FOOT 02/04/18 Stented coronary artery 05/25/19 [facility]; s/p stent of old stent-KB Family History Mother Essential hypertension Heart disease Stroke Father Stroke Brother Heart disease Family History Diabetes Heart disease Cancer Brother No problems noted. Brother No problems noted. Sister No problems noted. Sister Alcohol abuse Social History Smoking/Tobacco Use Status: Current every day Tobacco Type: cigarettes Tobacco: How many years used: 60 Quit status: has quit before Second Hand Exposure: Yes Smoking risk assessment performed?: Yes Alcohol Intake: former Drug use: Never Substance use type: does not use Household members: family Housing: house Communication Needs: None Do you need help understanding health information?: Rarely Pets and animals: Yes Pets and animals: cat(s) Sexually active: No Current gender identity: male What is your relationship status?: How often do you talk on the phone with friends or family?: three or more times per week How often do you get together with friends or relatives?: twice per week How often do you attend yazidi or congregation services?: decline to answer Do you belong to any clubs or organized social groups?: no Panel score (0-1 are the most socially isolated patients): 1 What type of physical activity do you participate in: walking Duration: < 15 minutes/day Frequency: 1-2 times per week Monika/Congregation: None Special monika needs: No Seatbelt use: sometimes Helmet use: No Drive intox or ride w/intox 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 3.ENT: Atraumatic external nose and ears. Moist MM. Neck: Symmetric, trachea midline, No thyromegaly. No edema in the posterior oropharynx, no lesions in the mouth. 4.CVS: +S1/S2, No murmurs or gallops. Peripheral pulses 2+ and equal in all extremities. Brisk capillary refill in all extremities. 5.RESP: Unlabored respiratory effort. Clear to auscultation bilaterally. No wheezes rales or rhonchi 6.GI: Soft, Nontender/Nondistended, No hepatosplenomegaly. No guarding or rebound. 7.MSK: Normocephalic/Atraumatic, Extremities w/o deformity or ttp No cyanosis or clubbing, Normal movement of all extremities 8.Skin: Warm, Dry. Patient demonstrates slightly elevated red blanching urticarial-like rash that is ovoid in shape with a diameter of 6 cm x 10 cm. Negative Nikolsky sign. No large vesicles or bulla. No palpable purpura. No oral lesions. No mucosal lesions. No evidence of severe cellulitis. No evidence of vaccine preventable rash. 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 Sensation grossly intact, no focal neurologic deficits. 10.Psych: (AAO) x3. Appropriate mood and affect Course Vital Signs Vital signs: Vital Signs Temperature 36.8 C 12/28/21 19:59 Pulse 80 12/28/21 19:59 Respiratory Rate 16 12/28/21 19:59 Blood Pressure 99/50 L 12/28/21 19:59 Pulse Oximetry 91 L 12/28/21 19:59 Temperature 36.8 C 12/28/21 19:59 Temperature Source Skin 12/28/21 19:59 Pulse 80 12/28/21 19:59 Respiratory Rate 16 12/28/21 19:59 Blood Pressure 106/52 L 12/28/21 20:07 Pulse Oximetry 91 L 12/28/21 19:59
[2021-12-28] MEDS: Loratidine 10 MG TAB PO (20:16)
== END 2021-12-28 20:19 | disposition home or self-care (01) ==
PROVIDERS: Emergency Provider Student in an Organized Health Care Education/Training Program; PCP Family Medicine
DX: L27.1 Localized skin eruption due to drugs and medicaments taken internally (principal); T50.B95A Adverse effect of other viral vaccines, initial encounter
CPT/HCPCS: 99283

== ENCOUNTER 2022-02-04 13:33 | Outpatient (REF) | payer MEDICARE, SELFPAY | END 2022-02-04 13:34 | disposition home or self-care (01) | LOC: LBN 13:33 | PROVIDERS: PCP Family Medicine; Visit Provider Family Medicine | DX: U07.1 COVID-19 (principal) | CPT/HCPCS: 82565 ==

== ENCOUNTER 2022-03-04 01:42 | Outpatient (RCR) | payer MEDICARE, SELFPAY ==
[2021-11-11 00:08] VITALS: BP 127/70; PULSE 70; RESP 18; TEMP 36.4
[2022-03-04] VITALS (9 sets, daily range): BP systolic 132–152; BP diastolic 68–89; PULSE 59–70; RESP 19–20; TEMP 36.4–36.8; O2SAT 92–95
[2022-03-04] MEDS: Acetaminophen 325 MG TAB 650 MG PO (07:26)
[2022-03-04] MEDS: diphenhydrAMINE 25 MG CAP PO (07:27)
[2022-03-04] MEDS: methylPREDNISolone SUCC 125 MG VIAL 50 MG IVP (07:27)
[2022-03-04] MEDS: Normal Saline Flush 10 ML SYR IVP (07:27)
[2022-03-04] MEDS: riTUXimab-PVVR 1,000 MG in Normal Saline 150 ML 62.5 MG IVPB (07:42)
== END 2022-03-12 23:59 | disposition home or self-care (01) ==
LOC: INF 01:42
PROVIDERS: PCP Family Medicine; Visit Provider Nurse Practitioner Acute Care
DX: M06.9 Rheumatoid arthritis, unspecified (principal)
CPT/HCPCS: 51798; 81003; 96365; 96366; 99214; J2930; Q5119

== ENCOUNTER 2022-03-04 12:09 | Outpatient (CLI) | payer MEDICARE, SELFPAY | END 2022-03-04 12:10 | disposition home or self-care (01) | LOC: URO 03-31 10:46 | PROVIDERS: PCP Family Medicine; Visit Provider Nurse Practitioner Gerontology | DX: R30.0 Dysuria (principal); B37.9 Candidiasis, unspecified; N40.1 Benign prostatic hyperplasia with lower urinary tract symptoms; R35.0 Frequency of micturition | CPT/HCPCS: 51798; 81003; 99214 ==

== ENCOUNTER 2022-03-19 18:57 | Observation (INO) | payer MEDICARE, SELFPAY ==
--- NOTE | 2022-03-19 19:00 | RT.EKG_ITS ---
APPROVED REPORT Exam: Resting ECG Reason for Exam: possible stroke Patient Location: E HR:80 bpm ECG Measurements Heart Rate 80 AXIS TN 209 P 25 QRSd 98 QRS -42 QT 377 T 26 QTc 437 Conclusion Sinus rhythm...normal P axis, V-rate 60- 99 Multiple ventricular premature complexes...V complexes w/ short R-R intervls Probable left ventricular hypertrophy...(RaVL+SV3)xQRSd >280 Inferior infarct, old...Q >35mS, II III aVF. Sinus. PVCs. No STEMI. I have reviewed and interpreted ECG and agree with software generated interpretation.
[2022-03-19 19:05] VITALS: BP 89/54; PULSE 83; RESP 16; TEMP 36.6; O2SAT 90
--- NOTE | 2022-03-19 19:15 | DI.RAD_ITS ---
Exam(s) XR CHEST 2V PA LATERAL EXAM: XR CHEST 2V PA LATERAL CLINICAL HISTORY: hypoxic, r/o acute disease TECHNIQUE: 2D digital imaging was performed. COMPARISON: CR XR CHEST 2V PA LATERAL from 05/02/[address] CHEST LUNG CANCER SCREEN from 06/06/2021 FINDINGS: Exam is somewhat limited by underpenetration. The heart size normal there are underlying fibrotic ch anges. Lungs are poorly inflated on the lateral view.. Basilar infiltrates not excluded. No effusi on or pneumothorax. IMPRESSION: Suboptimal exam. Question of basilar infiltrate versus atelectasis. DATA REPOSITORY: RADIATION DOSE DELIVERED:
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
--- NOTE | 2022-03-19 19:26 | W.ED.GENAD ---
Discharge Plan Disposition Patient Disposition: [facility] INPATIENT Condition: Stable Discharge Details Clinical Impression: Sepsis, Pneumonia Admit Date/Time: 03/19/22 21:32 Admit Provider: Jignesh Oneill Attending Provider: Jignesh Oneill Primary Care Provider: Mike Burns ED Provider: Chris Amaya Discharge Data Discharge Date/Time-TO BE ENTERED AT DEPARTURE: 03/19/22 21:34 Medical Decision Making <Alberta Whaley DO - Last Filed: 03/22/22 09:40> 03/19/22 Dr. Whaley 76-year-old male with a history of CVA, hypertension, hyperlipidemia, GERD, LA, diabetes, COPD and chronic right leg pain who presents with multiple complaints today including headache, blurry vision, syncopal episode x3, palpitations starting this afternoon. Blood pressure hypertensive on arrival with systolic BP of 70s that appears to be fluid responsive with pressure bag, now 90s. Oxygen saturation 88 to 90% on room air on arrival. Patient is not on home oxygen. Patient placed on 2 L nasal cannula oxygen. Rectal temp 100.2. Patient has slurred speech but no other focal deficits. He is mainly complaining of right leg pain but no weakness or numbness. Differential diagnosis includes sepsis, coronavirus, UTI, flu, pneumonia, CVA, electrolyte abnormality, dehydration. Will bolus IVF, obtain screening labs, lactate, blood cultures, urinalysis, fluvid, CT head and chest x-ray. Will obtain a D-dimer and refer for CT chest if positive. Labs and imaging reviewed. CT head and cervical spine negative. Chest Xray notes interstitial infiltrates bilaterally. Will order IV antibiotics and plan for admission. Labs reviewed. White blood cell count 12. Lactate 2.6. D-dimer 1033. Troponin negative. Will refer for CT chest to rule out PE in setting of hypoxia and syncope. Case discussed with Dr. Oneill -- Would like call back regarding covid and CT chest results before admission. Case endorsed to Dr. Amaya to follow-up on imaging and discuss imaging and COVID results with Dr. Oneill for admission. 03/19/22 Dr Amaya cta shows no obvious PE though limited at subsegmental level, concern for possible pneumonia though could be chronic emphysetmatous changes. He feels better and denies blurred vision and has nih of 0. He does have rhonchi in all lung dove and still smokes and does state cough he has chronically is worsening. Will give duoneb, abx ordered by Dr. Whaley, will admit. Medical Records Medical records reviewed: Yes I reviewed the patient's medical records. ECG Data Attestation: I personally reviewed and interpreted this ECG (s) as follows: Interpretation: Rate of 80, sinus, PVCs, no STEMI. <Chris Amaya MD - Last Filed: 03/19/22 21:36> 76-year-old male with a history of CVA, hypertension, hyperlipidemia, GERD, LA, diabetes, COPD and chronic right leg pain who presents with multiple complaints today including headache, blurry vision, syncopal episode x3, palpitations starting this afternoon. Blood pressure hypertensive on arrival with systolic BP of 70s that appears to be fluid responsive with pressure bag, now 90s. Oxygen saturation 88 to 90% on room air on arrival. Patient is not on home oxygen. Patient placed on 2 L nasal cannula oxygen. Rectal temp 100.2. Patient has slurred speech but no other focal deficits. He is mainly complaining of right leg pain but no weakness or numbness. Differential diagnosis includes sepsis, coronavirus, UTI, flu, pneumonia, CVA, electrolyte abnormality, dehydration. Will bolus IVF, obtain screening labs, lactate, blood cultures, urinalysis, fluvid, CT head and chest x-ray. Will obtain a D-dimer and refer for CT chest if positive. Labs and imaging reviewed. CT head and cervical spine negative. Chest Xray notes interstitial infiltrates bilaterally. Will order IV antibiotics and plan for admission. Labs reviewed. White blood cell count 12. Lactate 2.6. D-dimer 1033. Troponin negative. Will refer for CT chest to rule out PE in setting of hypoxia and syncope. Case discussed with Dr. Oneill -- Would like call back regarding covid and CT chest results before admission. Case endorsed to Dr. Amaya to follow-up on imaging and discuss imaging and COVID results with Dr. Oneill for admission. cta shows no obvious PE though limited at subsegmental level, concern for possible pneumonia though could be chronic emphysetmatous changes. He feels better and denies blurred vision and has nih of 0. He does have rhonchi in all lung dove and still smokes and does state coughhe has chronically is worsening. Will give duoneb, abx ordered by Dr. whaley, will admit. Imaging Data Radiologic Study: Attestation: I personally reviewed and interpreted this imaging study as follows: Radiologist's impression: IMPRESSION: 1. Motion limits evaluation of the subsegmental basilar pulmonary arteries. No evidence of pulmonary embolism to the segmental level. 2. Moderate to severe emphysema with scattered bilateral fibrotic changes as discussed. 3. Slightly more focal subpleural opacity within the right greater than left lung bases favored to represent additional fibrotic changes, cannot exclude infection in the appropriate setting, correlate clinically. Lab Data Lab results reviewed: Yes I reviewed the patient's lab results. HPI <Alberta Whaley DO - Last Filed: 03/22/22 09:40> General Mode of arrival: wheelchair. Date/Time Provider Initiated Documentation: 03/19/22 19:04. Information obtained by: patient and family. HPI Narrative: Patient is a 76-year-old male with a history of CVA, hypertension, hyperlipidemia, LA, rheumatoid arthritis, GERD, chronic right leg pain who presents to the ED with a complaint of headache, blurry vision, palpitations, dizziness with 3 syncopal episodes today. Daughter states that patient was feeling fine earlier this morning. Patient states sometime this afternoon he was driving when he developed headache on the top of his head and had a syncopal episode. Daughter states patient has had 2 additional syncopal episodes some of which have occurred while driving. Patient denies any injury during these episodes. Patient states he has felt like his heart rate was fluttering at times today. Patient and daughter states that he was feeling fine earlier today and yesterday. Patient states he has been eating and drinking normally. He states he is vaccinated for COVID and denies any known exposure to coronavirus. He denies any known fever, chest pain, shortness of breath, abdominal pain, vomiting, diarrhea or urinary symptoms. Related Data Home Medications Medication Instructions Recorded Confirmed inhalational spacing device (Space ##1 05/27/15 02/04/22 Chamber Plus) infliximab 100 mg intravenous 1,000 mg IV .[id number] 05/31/15 02/04/22 solution (Remicade) acetaminophen 650 mg 650 mg PO Q8H PRN Pain ##20 04/30/17 02/04/22 tablet,extended release budesonide 0.5 mg/2 mL suspension 0.5 mg (2 mL) inhalation BID #60 mL 11/08/20 03/19/22 for nebulization lancets 28 gauge (FreeStyle #300 ea 11/22/20 02/04/22 Lancets) epinephrine 0.3 mg/0.3 mL 0.3 mg (0.3 mL) IM ONCE #2 ea 03/12/21 02/04/22 injection, auto-injector ondansetron HCl 4 mg tablet 4 mg PO Q8H PRN #10 tabs 05/02/21 02/04/22 (Zofran) losartan 50 mg tablet 100 mg PO DAILY #180 tabs 05/08/21 03/19/22 albuterol sulfate 90 mcg/actuation 2 inh inhalation Q6H PRN 05/27/21 03/19/22 aerosol inhaler (Ventolin HFA) bronchospasm #8.5 grams amlodipine 5 mg tablet 5 mg PO BID #180 tabs 05/27/21 03/19/22 aspirin 81 mg chewable tablet 81 mg PO DAILY 05/27/21 03/19/22 atorvastatin 80 mg tablet 80 mg PO QHS #90 tabs 05/27/21 03/19/22 clopidogrel 75 mg tablet (Plavix) 75 mg PO DAILY #90 tabs 05/27/21 03/19/22 empagliflozin 25 mg tablet 25 mg PO DAILY #90 tabs 05/27/21 03/19/22 (Jardiance) ezetimibe 10 mg tablet 10 mg PO DAILY #30 tabs 05/27/21 03/19/22 nitroglycerin 0.4 mg sublingual 0.4 mg sublingual PRN #25 tab-caps 05/27/21 02/04/22 tablet (Nitrostat) sildenafil 100 mg tablet 100 mg PO DAILY PRN sexual 08/05/21 02/04/22 activity #5 tabs insulin glargine 100 unit/mL (3 47 unit (0.47 mL) subcut HS #45 mL 08/29/21 03/19/22 mL) subcutaneous pen pantoprazole 40 mg tablet,delayed 40 mg PO DAILY #90 tabs 08/29/21 03/19/22 release tamsulosin 0.4 mg capsule 0.4 mg PO DAILY #30 caps 08/29/21 03/19/22 gabapentin 300 mg capsule See Rx Instructions .Route 10/31/21 03/19/22 .COMPLEX #90 caps pen needle, diabetic 33 gauge x #100 ea 11/10/21 02/04/22 (Advocate Pen Needle) dulaglutide 0.75 mg/0.5 mL 0.75 mg (0.5 mL) subcut QWEEK #6 mL 12/05/21 03/19/22 subcutaneous pen injector (Trulicity) loratadine 10 mg capsule 10 mg PO DAILY #10 caps 12/28/21 02/04/22 blood sugar diagnostic (FreeStyle #300 strips 01/30/22 02/04/22 Test strips) fluticasone propionate 50 2 spray NS DAILY #1 g 01/30/22 03/19/22 mcg/actuation nasal spray,suspension bebtelovimab 175 mg/2 mL (87.5 175 mg (2 mL) IV ONCE #2 mL 02/04/22 02/04/22 mg/mL) intravenous solution (EUA) bupropion HCl 150 mg tablet,12 hr 150 mg PO BID #180 tabs 03/02/22 03/19/22 sustained-release clotrimazole-betamethasone 1 1 applic topical BID #45 grams 03/04/22 03/04/22 %-0.05 % topical cream benzonatate 100 mg capsule 1 cap PO DAILY 03/19/22 03/19/22 cyclosporine 0.05 % eye drops in a 1 drp BID 03/19/22 03/19/22 dropperette (Restasis) doxycycline hyclate 100 mg tablet 1 tab BID 03/19/22 03/19/22 ondansetron HCl 4 mg tablet 1 mg PO Q8H PRN 03/19/22 03/19/22 levofloxacin 750 mg tablet 750 mg PO DAILY 5 days #5 tabs 03/20/22 prednisone 20 mg tablet 20 mg PO BID 5 days #10 tabs 03/20/22 Previous Rx's Medication Instructions Recorded acetaminophen 650 mg 650 mg PO Q8H PRN Pain ##20 04/30/17 tablet,extended release budesonide 0.5 mg/2 mL suspension 0.5 mg (2 mL) inhalation BID #60 mL 11/08/20 for nebulization lancets 28 gauge (FreeStyle #300 ea 11/22/20 Lancets) epinephrine 0.3 mg/0.3 mL 0.3 mg (0.3 mL) IM ONCE #2 ea 03/12/21 injection, auto-injector ondansetron HCl 4 mg tablet 4 mg PO Q8H PRN #10 tabs 05/02/21 (Zofran) losartan 50 mg tablet 100 mg PO DAILY #180 tabs 05/08/21 albuterol sulfate 90 mcg/actuation 2 inh inhalation Q6H PRN 05/27/21 aerosol inhaler (Ventolin HFA) bronchospasm #8.5 grams amlodipine 5 mg tablet 5 mg PO BID #180 tabs 05/27/21 atorvastatin 80 mg tablet 80 mg PO QHS #90 tabs 05/27/21 clopidogrel 75 mg tablet (Plavix) 75 mg PO DAILY #90 tabs 05/27/21 empagliflozin 25 mg tablet 25 mg PO DAILY #90 tabs 05/27/21 (Jardiance) ezetimibe 10 mg tablet 10 mg PO DAILY #30 tabs 05/27/21 nitroglycerin 0.4 mg sublingual 0.4 mg sublingual PRN #25 tab-caps 05/27/21 tablet (Nitrostat) sildenafil 100 mg tablet 100 mg PO DAILY PRN sexual 08/05/21 activity #5 tabs insulin glargine 100 unit/mL (3 47 unit (0.47 mL) subcut HS #45 mL 08/29/21 mL) subcutaneous pen pantoprazole 40 mg tablet,delayed 40 mg PO DAILY #90 tabs 08/29/21 release tamsulosin 0.4 mg capsule 0.4 mg PO DAILY #30 caps 08/29/21 gabapentin 300 mg capsule See Rx Instructions .Route 10/31/21 .COMPLEX #90 caps pen needle, diabetic 33 gauge x #100 ea 11/10/21 532 (Advocate Pen Needle) dulaglutide 0.75 mg/0.5 mL 0.75 mg (0.5 mL) subcut QWEEK #6 mL 12/05/21 subcutaneous pen injector (Trulicity) loratadine 10 mg capsule 10 mg PO DAILY #10 caps 12/28/21 blood sugar diagnostic (FreeStyle #300 strips 01/30/22 Test strips) fluticasone propionate 50 2 spray NS DAILY #1 g 01/30/22 mcg/actuation nasal spray,suspension bebtelovimab 175 mg/2 mL (87.5 175 mg (2 mL) IV ONCE #2 mL 02/04/22 mg/mL) intravenous solution (EUA) bupropion HCl 150 mg tablet,12 hr 150 mg PO BID #180 tabs 03/02/22 sustained-release clotrimazole-betamethasone 1 1 applic topical BID #45 grams 03/04/22 %-0.05 % topical cream levofloxacin 750 mg tablet 750 mg PO DAILY 5 days #5 tabs 03/20/22 prednisone 20 mg tablet 20 mg PO BID 5 days #10 tabs 03/20/22 Allergies Allergy/AdvReac Type Severity Reaction Status Date / Time venom-honey bee Allergy Severe ANAPHYLAXSI Verified 03/19/22 19:08 [bee venom (honey bee)] S Sulfa (Sulfonamide Allergy Unknown unknown Verified 03/19/22 19:08 Antibiotics) leflunomide [From Arava] AdvReac Intermediate DIARRHEA Verified 03/19/22 19:08 metformin AdvReac Intermediate diarrhea Verified 03/19/22 19:08 General Stated Complaint: CVA/TIA STAR: 2 Review of Systems <Alberta Whaley DO - Last Filed: 03/22/22 09:40> All systems reviewed & are unremarkable except as noted in HPI and below Constitutional Constitutional: Denies chills, Denies excessive sweating, Denies fatigue, Denies fever(s), Reports headache(s), Denies weakness and Denies weight loss Eyes Eyes: Reports system reviewed and no additional complaints, except as documented and Reports blurry vision ENT Ears, Nose, Mouth, and Throat: Denies vertigo, Reports dizziness, Denies otalgia, Reports headache(s), Denies nasal congestion, Denies sore throat and Denies throat swelling Cardiovascular Cardiovascular: Denies chest pain, Reports syncope, Reports rapid heart rate, Reports lightheadedness and Denies dyspnea Respiratory Respiratory: Denies chest congestion, Denies cough, Denies pain on inspiration and Denies dyspnea Gastrointestinal Gastrointestinal: Denies abdominal pain, Denies diarrhea and Denies vomiting Genitourinary Genitourinary: Denies hematuria, Denies dysuria and Denies flank pain Musculoskeletal Musculoskeletal: Denies back pain and Denies joint swelling Integumentary/Breasts Skin/Breast: Denies lesions and Denies rash Neurologic Neurologic: Denies behavioral changes, Denies confusion, Denies vertigo, Reports dizziness, Reports syncope, Reports headache(s), Denies localized weakness and Denies weakness Psychiatric Psychiatric: Denies behavioral changes, Denies confusion and Denies depression Endocrine Endocrine: Denies excessive sweating and Denies fatigue Hematologic/Lymphatic Hematologic/Lymphatic: Denies easy bruising and Denies lymphadenopathy Allergic/Immunologic Allergic/Immunologic: Denies throat swelling PFS <Alberta Whaley, DO - Last Filed: 03/22/22 09:40> All Active Problems (Updated 03/21/22 @ 00:01 by GEORGE GIVENS) Acute kidney injury (Acute) Sepsis (Acute) Pneumonia (Acute) Back pain (Acute) Cyst (Acute) Leg pain, right (Acute) Diverticulitis (Chronic) Anaphylaxis due to hymenoptera venom (Acute) Acute exacerbation of chronic obstructive pulmonary disease (Acute) Rash (Acute) Mallet deformity of left ring finger (Acute 11/30/20) with avulsion fracture Otitis media (Acute) Serrated adenoma of colon (Acute ~07/2020) Tubular adenoma (Acute ~07/2020) tubular adenoma x7, repeat colo in 1 year Adenomatous polyps (Acute) Diverticula of colon (Acute) Degenerative lumbar spinal stenosis (Acute) Bilateral hip joint arthritis (Acute) Arthritis of knee, right (Acute) Chronic knee pain (Acute) Acute bilateral low back pain (Acute) Acute hyperglycemia (Acute) Fatigue (Acute) Bradycardia (Acute) Flank pain (Acute) RCA occlusion (Acute) 05/25/19 [facility] [place] Non-ST elevated myocardial infarction (Acute) ASCVD (arteriosclerotic cardiovascular disease) (Chronic 05/05/13) 2 NEW STENTS 04/22 H/O IMI; angioplasty and stent; [place] , 02/11; CVA/TIA Chronic obstructive lung disease (Chronic) pulmonary fibrosis on chest xray ongoing tobacco use add back budesonide nebs to see if we can improve cough Gastroesophageal reflux disease (Chronic) Hyperlipidemia (Chronic 05/05/13) Rheumatoid arthritis (Chronic 05/05/13) [facility] [place] [place] Depressive disorder (Chronic) Diverticulitis of colon (Acute) History of incisional hernia repair (Acute) History of knee surgery (Acute) Lipoma (Acute) Erectile dysfunction (Chronic) Tubular adenoma (Acute) 11/20 COLONOSCOPY: ONE TUBULOVILLOUS ADENOMA & TWO TUBULAR ADENOMAS. 05/22/13: DR. Mateusz COPELAND:TUBULAR ADENOMAS 11/13/16: Dr Jian Crump: tublular and tubulovillous adenomas Smoker (Acute) Polyp of colon (Acute) 11/20 COLONOSCOPY: ONE TUBULOVILLOUS ADENOMA & TWO TUBULAR ADENOMAS. 05/22/13: DR. Mateusz COPELAND:TUBULAR ADENOMAS 11/13/16: Dr Jian Crump: tublular and tubulovillous adenomas Palpitations (Acute 11/04/12) multiple PVCs, bradycardia (2013) ([facility] [place], Dr Abraham, echo normal LVEF and stress test neg ischemia) Male erectile disorder (Acute 08/29/13) Kidney stone (Acute 09/14/14) recurrent x3 on left [facility] [place] Urology 10/12/16-[facility]; F/U Dr. Fair Esophageal reflux (Acute) Bilateral kidney stones (Acute 10/27/16) Medical History BPH loc w urin obs/LUTS COPD (chronic obstructive pulmonary disease) CVA (cerebral vascular accident) (11/21/17) Diabetes mellitus (05/05/13) check A1c and creat Hypertension same meds, good BP here today Myocardial infarction Surgical History Colonoscopy - MAC (05/16/13) Colonoscopy - MAC (11/13/16) Colostomy (~2006) TEMP W/ REVISION Excision, Lipoma (05/19/16) posterior neck Hernia Repair, Incisional KNEE REPAIR RIGHT RESECTION ANGIOFIBROMA;RIGHT FOOT 02/04/18 Stented coronary artery 05/25/19 [facility] [place]; s/p stent of old stent-KB Family History Mother Essential hypertension Heart disease Stroke Father Stroke Brother Heart disease Family History Diabetes Heart disease Cancer Brother No problems noted. Brother No problems noted. Sister No problems noted. Sister Alcohol abuse Social History Smoking/Tobacco Use Status: Current every day Tobacco Type: cigarettes Tobacco: How many years used: 60 Quit status: has quit before Second Hand Exposure: Yes Smoking risk assessment performed?: Yes Alcohol Intake: former Drug use: Never Substance use type: does not use Household members: family Housing: house Communication Needs: None Do you need help understanding health information?: Rarely Pets and animals: Yes Pets and animals: cat(s) Sexually active: No Current gender identity: male What is your relationship status?: How often do you talk on the phone with friends or family?: three or more times per week How often do you get together with friends or relatives?: twice per week How often do you attend catholic or druze services?: decline to answer Do you belong to any clubs or organized social groups?: no Panel score (0-1 are the most socially isolated patients): 1 What type of physical activity do you participate in: walking Duration: < 15 minutes/day Frequency: 1-2 times per week Monika/Rastafari: None Special monika needs: No Seatbelt use: sometimes Helmet use: No 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. Retired [employer]. 4 adult kids in the area. Exam <Alberta Whaley DO - Last Filed: 03/22/22 09:40> Const General: cooperative Orientation: alert, awake and oriented x3 HENMT Head: normal to inspection Ears: hearing grossly normal bilaterally, external ears normal and TM's normal bilaterally General nose exam: external nose normal Face and sinus: normal facial exam Mouth: oral mucosae normal Teeth and gingiva: dentition normal Throat: posterior oropharynx normal Eyes General: appearance normal, both eyes and all related structures Eyelids: eyelids normal Pupils: PERRL EOM: EOM intact bilaterally Neck Neck: normal visual inspection Lymphatic: no lymphadenopathy noted Chest Chest: normal inspection of the chest Resp Effort & Inspection: normal respiratory effort and able to speak in complete sentences Auscultation: clear to auscultation bilaterally Cardio Rate: regular rate Rhythm: regular rhythm GI Inspection: normal to inspection Palpation: soft, not firm, no guarding, no hepatosplenomegaly, no masses and nontender Auscultation: normal bowel sounds Back/Spine/Pelvis Back: no CVA tenderness Skin General skin exam: no rashes or lesions noted Neuro General: patient alert, patient awake and no focal motor deficits Cranial Nerves: CN's II-XI intact bilaterally Cognition: normal cognition Speech: abnormal speech slurred Motor: muscle tone normal throughout and strength 5/5 throughout Sensory Exam: no sensory deficits noted Extrem General: normal to inspection, full ROM, capillary refill normal and no edema Psych Appearance: grossly normal Mental Status: mental status grossly normal Speech and Movement: speech and movement normal Affect: normal affect Thought Process: normal Course <Alberta Whaley DO - Last Filed: 03/22/22 09:40> Vital Signs Vital signs: Vital Signs Temperature 97.9 F 03/19/22 19:05 Pulse 83 03/19/22 19:05 Respiratory Rate 16 03/19/22 19:05 Blood Pressure 89/54 L 03/19/22 19:05 Pulse Oximetry 90 L 03/19/22 19:05 Temperature 97.9 F 03/19/22 19:05 Temperature Source Temporal Artery Scan 03/19/22 19:05 Pulse 83 03/19/22 19:05 Respiratory Rate 16 03/19/22 19:05 Blood Pressure 89/54 L 03/19/22 19:05 Blood Pressure Position Supine 03/19/22 19:05 Pulse Oximetry 90 L 03/19/22 19:05 Oxygen Delivery Method Room Air 03/19/22 19:05 Oxygen Flow Rate 0 03/19/22 19:05 Pain Level 8 03/19/22 19:05 Lab/Test Results Lab/Test Results: 03/19/22 19:25 Blood Blood Culture - Pending 03/19/22 19:25 Blood Blood Culture - Pending Sign Out <Alberta Whaley DO - Last Filed: 03/22/22 09:40> Sign Out Data: Sign Out Comment: Headache, blurry vision, palpitations and syncopal episode x3 today. Temp 100.2, hypotensive and hypoxic on arrival. Patient is a full code. Follow-up on labs and imaging and final disposition. Will likely need admission Last updated by Alberta Whaley DO at 03/19/22 19:48
[2022-03-19] MEDS: Normal Saline 1,000 ML 1000 ML IV ×2 (19:33→19:35)
[2022-03-19 19:36] LABS: BE (Venous) -1 mmol/L (-2-3); HCO3 (Venous) 24 mmol/L (23-28); O2 Sat (Venous) 86 %; TCO2 (Venous) 21 mmol/L (24-29); pCO2 (Venous) 40 mmHg (41-51); pO2 (Venous) 49 mmHg
[2022-03-19 19:37] VITALS: RESP 16
[2022-03-19 19:40] LABS: Lactate 2.6 mmol/L (0.6-1.4)
[2022-03-19 19:41] LABS: Abs Immature Grans 0.05 10^3/uL (0.0-0.06); Absolute Basophil Count 0.06 10^3/uL (0.0-0.2); Absolute Eosinophil Count 0.36 10^3/uL (0.0-0.7); Absolute Lymphocyte Count 1.89 10^3/uL (1.2-3.4); Absolute Neutrophil Count 8.87 10^3/uL (1.2-6.7); Basophils % 0.5; Eosinophils % 2.9; HCT 48.2 % (40.0-50.0); HGB 16.4 g/dL (13.5-17.5); Immature Grans % 0.4; Lymphocytes % 15.1; MCH 31.5 pg (27.0-33.0); MCV 93 fL (80-95); MPV 10.9 fL (8.0-11.0); Monocytes % 10.4; Neutrophils % 70.7; Platelet Count 247 10^3/uL (130-400); RDW 15.2 % (11.8-14.1); RDW-SD 52.4 fL; WBC 12.54 10^3/uL (4.4-10.8)
[2022-03-19 19:56] LABS: ALT 27 U/L (16-63); AST 17 U/L (15-37); Albumin 3.4 g/dL (3.4-5.0); Alkaline Phosphatase 88 U/L (46-116); Anion Gap 9.4 mmol/L (3-11); BUN 28 mg/dL (7-18); Bilirubin, Total 0.8 mg/dL (0.2-1.0); CO2 24.6 mmol/L (21.0-32.0); CREATININE 1.5 mg/dL (0.70-1.30); Calcium 9.2 mg/dL (8.5-10.1); Chloride 104 mmol/L (98-107); Estimated GFR 45.75 (mL/min/1.73m2); Glucose 103 mg/dL (74-106); Lipase 136 U/L (73-393); Magnesium 2.1 mg/dL (1.8-2.4); Potassium 3.6 mmol/L (3.5-5.1); Sodium 138 mmol/L (136-145); Total Protein 6.8 g/dL (6.4-8.2); Troponin I < 50 ng/L (<or=60)
[2022-03-19 19:57] VITALS: BP 104/49; PULSE 85; RESP 14; TEMP 37.9; O2SAT 95
--- NOTE | 2022-03-19 20:01 | DI.VRAD_ITS ---
Addendum created by Jose Roberto Holman MD on 03/19/2022 8:01:43 PM EDT: THIS REPORT CONTAINS FINDINGS THAT MAY BE CRITICAL TO PATIENT CARE. The findings were verbally communicated via telephone conference with herson otero at 8:01 PM EDT on 03/19/2022. The findings were acknowledged and understood. Initial report created on 03/19/2022 8:01:20 PM EDT: PROCEDURE INFORMATION: Exam: CT Head Without Contrast Exam date and time: 03/19/2022 7:38 PM Age: 76 years old Clinical indication: Stroke-like symptoms; Headache TECHNIQUE: Imaging protocol: Computed tomography of the head without contrast. Other technique: STROKE PROTOCOL was implemented. COMPARISON: CT HEAD WITHOUT STROKE PROTOCOL 11/21/2017 7:03 PM FINDINGS: Brain: Slight prominence of cerebral sulci reflects mild cerebral atrophy. A few poorly marginated hypodensities seen throughout the deep and periventricular white matter of both cerebral hemispheres are consistent with microvascular ischemic changes. Brainstem and cerebellum are unremarkable and there is no evidence of acute infarct or recent intracranial hemorrhage. Cerebral ventricles: Stable in configuration with no midline shift or hydrocephalus. Paranasal sinuses: Grossly clear throughout. Mastoid air cells: Grossly clear bilaterally. Bones/joints: Bony calvarium and skull base are intact and no acute fractures are detected. Soft tissues: Unremarkable. IMPRESSION: Mild atrophy and probable microvascular ischemic changes with no evidence of acute infarct, recent hemorrhage or hydrocephalus. No acute intracranial process is detected. ASSESSMENT: ASPECTS (Mitzi Stroke Program Early CT Score) is 10. PROCEDURE INFORMATION: Exam: CT Cervical Spine Without Contrast Exam date and time: 03/19/2022 7:38 PM Age: 76 years old Clinical indication: Stroke-like symptoms; Headache TECHNIQUE: Imaging protocol: Computed tomography of the cervical spine without contrast. COMPARISON: CTA BRAIN AND NECK 11/21/2017 9:43 PM FINDINGS: Bones/joints: There is arthrosis involving the anterior atlantodental interval with loss of joint space and marginal osteophyte formation and the odontoid process is grossly intact. There is gross preservation of vertebral body height throughout cervical levels with no vertebral body fractures or significant subluxations detected. No acute fractures are detected involving the posterior elements of the cervical spine. Discs/Spinal canal/Neural foramina: No severe canal stenosis, cord compression or bony foraminal narrowing detected at cervical levels on this noncontrast CT examination. Soft tissues: Unremarkable. IMPRESSION: Arthrosis identified involving the anterior atlantodental interval with no acute cervical fractures detected. Dictated and Authenticated by: Jose Roberto Holman MD. Ordering:BRIDGETT Pinzon MD
[2022-03-19 20:10] LABS: D-Dimer 1033 ng/mlFEU (<500)
--- NOTE | 2022-03-19 20:15 | DI.CT_ITS ---
Exam(s) CT CHEST PE CTA EXAM: CT CHEST PE CTA CLINICAL HISTORY: fever, sob, hypoxia, r/o PE. TECHNIQUE: Imaging Protocol: Axial CT angiography was performed with multi-slice acquisition and mu lti-planar reconstructions as well as axial, coronal and sagittal MIP reconstructions. CONTRAST MATERIAL: Intravenous: Omnipaque 350 Contrast volume:100 ml COMPARISON: CT CT CHEST LUNG CANCER SCREEN from 06/06/2021 FINDINGS: The exam is mildly limited by motion artifact. No pulmonary emboli identified. There is no evidence of aortic dissection. The aorta is calcified there is atheromatous plaque in the descending thoraci c aorta but no significant stenosis. The heart is mildly enlarged. Coronary artery calcifications a re seen. No pleural or pericardial effusions. Centrilobular and paraseptal emphysematous changes ar e noted throughout. There is significant interstitial thickening greater in the lower lobes. There are expiratory changes in dependent changes at the lung bases. No definite superimposed consolidatio n is seen.. Bones show degenerative changes. There is stable mild compression of T8 and T9. IMPRESSION: No evidence of pulmonary embolism.. Severe emphysematous and fibrotic changes. Definite acute infil trate. RADIATION DOSE DELIVERED: 412.59mGy.cm Total DLP DATA REPOSITORY: All CT scans at this facility are submitted to the National Radiology Data Registry (NRDR) Dose Index Registry (DIR) with the [employer] ([employer]). RADIATION OPTIMIZATION: All CT scans at this facility use at least one of these dose optimization te chniques: automated exposure control; mA and/or kV adjustment per patient size (includes targeted exa ms where dose is matched to clinical indication); or iterative reconstruction.
[2022-03-19 20:24] LABS: COVID-19 PCR Negative (Negative); Influenza A PCR Negative (Negative); Influenza B PCR Negative (Negative); RSV PCR Negative (Negative)
--- NOTE | 2022-03-19 20:36 | DI.VRAD_ITS ---
PROCEDURE INFORMATION: Exam: XR Chest Exam date and time: 03/19/2022 7:45 PM Age: 76 years old Clinical indication: Other: Syncope TECHNIQUE: Imaging protocol: Radiologic exam of the chest. Views: 2 views. COMPARISON: 1. CT CHEST LUNG CANCER SCREEN 06/06/2021 8:33 AM 2. CR XR CHEST 2V PA LATERAL 05/02/2021 2:26 PM FINDINGS: Lungs: Bilateral interstitial opacities predominantly involving the perihilar and basilar lungs appear similar to mildly progressed to prior. No focal/lobar consolidation. Pleural spaces: No visible pleural effusion. No pneumothorax. Heart/Mediastinum: Cardiomediastinal contour stable, mildly enlarged. Bones/joints: No acute osseous finding. IMPRESSION: 1. Bilateral interstitial opacities predominantly involving the perihilar and basilar lungs appear similar to mildly progressed to prior, favor chronic finding but nonspecific. 2. No focal/lobar consolidation. Dictated and Authenticated by: Christiano Ingram MD. Ordering:BRIDGETT Pinzon MD
[2022-03-19] MEDS: Omnipaque 350 MG/ML 100 ML BTL IJ (20:48)
[2022-03-19] MEDS: DOXYCYCLINE 100 MG in Normal Saline 100 ML IVPB (20:57)
[2022-03-19] MEDS: cefTRIAXone 2 GM/50 ML BAG IVPB (20:57)
--- NOTE | 2022-03-19 21:19 | DI.VRAD_ITS ---
PROCEDURE INFORMATION: Exam: CTA Chest With Contrast Exam date and time: 03/19/2022 8:43 PM Age: 76 years old Clinical indication: Fever and shortness of breath and other: Hypoxia, R/O pe TECHNIQUE: Imaging protocol: Computed tomographic angiography of the chest with contrast. 3D rendering (Not supervised by radiologist): MIP and/or 3D reconstructed images were created by the technologist. Radiation optimization: All CT scans at this facility use at least one of these dose optimization techniques: automated exposure control; mA and/or kV adjustment per patient size (includes targeted exams where dose is matched to clinical indication); or iterative reconstruction. Contrast material: OMNI 350; Contrast volume: 100 ml; Contrast route: INTRAVENOUS (IV); COMPARISON: CT CHEST PE CTA 05/25/2019 12:35 AM FINDINGS: Pulmonary arteries: Pulmonary artery opacification is adequate. Motion limits evaluation of the subsegmental basilar pulmonary arteries. No evidence of pulmonary embolism to the segmental level. Aorta: No thoracic aortic aneurysm or dissection. Moderate vascular calcifications of the aortic arch and descending thoracic aorta with relatively more advanced noncalcified atheromatous plaques of the descending thoracic aorta. Thyroid: No mass. Lungs: Moderate to severe centrilobular and paraseptal emphysematous changes scattered throughout the lungs. There are scattered subpleural and bibasilar fibrotic changes with diffuse scattered septal thickening. There is slightly more focal subpleural opacity within the right greater than left lung bases favored to be related to fibrotic changes but nonspecific. Pleural spaces: No pneumothorax. No pleural effusion. Heart: Mild cardiomegaly. No pericardial effusion. There are moderate coronary vascular calcifications. Lymph nodes: No pathologically enlarged axillary, mediastinal, or hilar lymph nodes. Diaphragm: Small decompressed hiatal hernia. Bones/joints: Mild central compression deformities of T8 greater than T9 appears similar to comparison exam. Mild multilevel thoracic spondylosis. Otherwise no discrete or displaced fracture. Soft tissues: No focal abnormality. IMPRESSION: 1. Motion limits evaluation of the subsegmental basilar pulmonary arteries. No evidence of pulmonary embolism to the segmental level. 2. Moderate to severe emphysema with scattered bilateral fibrotic changes as discussed. 3. Slightly more focal subpleural opacity within the right greater than left lung bases favored to represent additional fibrotic changes, cannot exclude infection in the appropriate setting, correlate clinically. Dictated and Authenticated by: Christiano Ingram MD. Ordering:BRIDGETT Pinzon MD
[2022-03-19] MEDS: Albuterol/Ipratropium 3 ML UPD VIAL UPD (21:35)
[2022-03-19 22:35] VITALS: BP 92/51; PULSE 60; RESP 18; TEMP 36.5; O2SAT 92
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
[2022-03-20] VITALS (8 sets, daily range): BP systolic 104–135; BP diastolic 54–76; PULSE 67–91; RESP 16–25; TEMP 35.6–36.8; O2SAT 88–95
[2022-03-20] MEDS: Atorvastatin 40 MG TAB 80 MG PO (00:13)
[2022-03-20] MEDS: Enoxaparin 40 MG/0.4 ML SYR SC (00:13)
[2022-03-20] MEDS: methylPREDNISolone SUCC 125 MG VIAL 80 MG IVP (00:13)
[2022-03-20 03:12] LABS: Bilirubin Negative (Negative); Blood Negative (Negative); Clarity Clear (Clear); Glucose >=1000 mg/dL (Negative); Ketones Negative (Negative); Leukocyte Esterase Negative (Negative); Nitrite Negative (Negative); Urobilinogen 0.2 EU/dL (Up TO 0.2)
[2022-03-20 06:18] LABS: Abs Immature Grans 0.02 10^3/uL (0.0-0.06); Absolute Basophil Count 0.03 10^3/uL (0.0-0.2); Absolute Eosinophil Count 0.02 10^3/uL (0.0-0.7); Absolute Lymphocyte Count 0.53 10^3/uL (1.2-3.4); Absolute Monocyte Count 0.08 10^3/uL (0.1-0.8); Absolute Neutrophil Count 7.83 10^3/uL (1.2-6.7); Basophils % 0.4; Eosinophils % 0.2; HCT 47.6 % (40.0-50.0); HGB 15.8 g/dL (13.5-17.5); Immature Grans % 0.2; Lymphocytes % 6.2; MCH 30.9 pg (27.0-33.0); MCHC 33.2 % (32.0-36.0); MCV 93 fL (80-95); MPV 10.4 fL (8.0-11.0); Monocytes % 0.9; Neutrophils % 92.1; Platelet Count 212 10^3/uL (130-400); RBC 5.12 10^6/uL (4.36-5.78); RDW 15.1 % (11.8-14.1); RDW-SD 51.9 fL; WBC 8.51 10^3/uL (4.4-10.8)
[2022-03-20 06:30] LABS: Anion Gap 8.2 mmol/L (3-11); BUN 23 mg/dL (7-18); CO2 25.8 mmol/L (21.0-32.0); CREATININE 0.9 mg/dL (0.70-1.30); Calcium 8.8 mg/dL (8.5-10.1); Chloride 105 mmol/L (98-107); Glucose 172 mg/dL (74-106); Potassium 4.1 mmol/L (3.5-5.1); Sodium 139 mmol/L (136-145)
[2022-03-20 06:35] LABS: Hemoglobin A1C 6.7 % (<5.7)
[2022-03-20] MEDS: Budesonide 0.5 MG/2 ML UPD VIAL IH (07:33)
[2022-03-20] MEDS: buPROPion-CR 150 MG TABCR PO (09:41)
[2022-03-20] MEDS: amLODIPine 5 MG TAB PO (09:41)
[2022-03-20] MEDS: Aspirin 81 MG CHEW PO (09:41)
[2022-03-20] MEDS: Ezetimibe 10 MG TAB PO (09:42)
[2022-03-20] MEDS: Clopidogrel 75 MG TAB PO (09:42)
[2022-03-20] MEDS: Empaglifozin 25 MG TAB PO (09:42)
[2022-03-20] MEDS: Fluticasone NASAL SPRAY 16 GM BTL NS (09:43)
[2022-03-20] MEDS: Losartan 50 MG TAB 100 MG PO (09:43)
[2022-03-20] MEDS: Gabapentin 300 MG CAP PO ×2 (09:43→13:55)
[2022-03-20] MEDS: Loratidine 10 MG TAB PO (09:43)
[2022-03-20] MEDS: predniSONE 20 MG TAB 40 MG PO (09:44)
[2022-03-20] MEDS: Tamsulosin 0.4 MG CAPCR PO (09:44)
[2022-03-20] MEDS: Normal Saline Flush 10 ML SYR IVP (11:14)
[2022-03-20] MEDS: DOXYCYCLINE 100 MG in Normal Saline 100 ML IVPB (11:14)
--- NOTE | 2022-03-20 11:32 | W.INDIABCONS ---
Date of service: 03/20/22 Time of Service: 11:33 Diabetes Inpatient Consult Reason for Visit: dm DESCRIPTION/ASSESSMENT: 76 year old male admitted with CORINE, sepsis with long standing hx of DM2. Home Dm meds: lantus 47 u HS, Trlroeta and Jardiance. Most recent A1C: 6.7% indicating good glycemic control. No intervention needed at this time. Weight stable and wnl. PLAN: will monitor po intake, labs, weight Time Spent in Nutritional Counseling and Treatment: 0
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
--- NOTE | 2022-03-20 16:10 | INITIAL_ITS ---
- If Service Date Differs Date of service: 03/20/22 Time of Service: 16:10 Care Management Initial Assess REASON FOR HOSPITALIZATION:: COPD Exacerbation PAST MEDICAL HISTORY/PAST SURGICAL HISTORY:: All Active Problems (Updated 03/20/22 @ 00:17 by Jignesh Oneill). Acute kidney injury (Acute). Sepsis (Acute). Pneumonia (Acute). Back pain (Acute). Cyst (Acute). Leg pain, right (Acute). Diverticulitis (Chronic). Anaphylaxis due to hymenoptera venom (Acute). Acute exacerbation of chronic obstructive pulmonary disease (Acute). Rash (Acute). Mallet deformity of left ring finger (Acute 11/30/20). with avulsion fracture. Otitis media (Acute). Serrated adenoma of colon (Acute ~07/2020). Tubular adenoma (Acute ~07/2020). tubular adenoma x7, repeat colo in 1 year. Adenomatous polyps (Acute). Diverticula of colon (Acute). Degenerative lumbar spinal stenosis (Acute). Bilateral hip joint arthritis (Acute). Arthritis of knee, right (Acute). Chronic knee pain (Acute). Acute bilateral low back pain (Acute). Discharge planning issues (Acute). DVT prophylaxis (Acute). Acute hyperglycemia (Acute). Fatigue (Acute). Bradycardia (Acute). Flank pain (Acute). RCA occlusion (Acute). 05/25/19 [facility]. Non-ST elevated myocardial infarction (Acute). ASCVD (arteriosclerotic cardiovascular disease) (Chronic 05/05/13). 2 NEW STENTS 04/22. H/O IMI; angioplasty and stent; [place] , 02/11; CVA/TIA. Chronic obstructive lung disease (Chronic). pulmonary fibrosis on chest xray. ongoing tobacco use. add back budesonide nebs to see if we can improve cough. Gastroesophageal reflux disease (Chronic). Hyperlipidemia (Chronic 05/05/13). Rheumatoid arthritis (Chronic 05/05/13). [facility], Dr Leon. Depressive disorder (Chronic). Diverticulitis of colon (Acute). History of incisional hernia repair (Acute). History of knee surgery (Acute). Lipoma (Acute). Erectile dysfunction (Chronic). Tubular adenoma (Acute). 11/20 COLONOSCOPY: ONE TUBULOVILLOUS ADENOMA & TWO TUBULAR ADENOMAS. 05/22/13: DR. Mateusz COPELAND:TUBULAR ADENOMAS. 11/13/16: Dr Jian Crump: tublular and tubulovillous adenomas. Smoker (Acute). Polyp of colon (Acute). 11/20 COLONOSCOPY: ONE TUBULOVILLOUS ADENOMA & TWO TUBULAR ADENOMAS. 05/22/13: DR. Mateusz COPELAND:TUBULAR ADENOMAS. 11/13/16: Dr Jian Crump: tublular and tubulovillous adenomas. Palpitations (Acute 11/04/12). multiple PVCs, bradycardia (2013). ([facility], Dr Abraham, echo normal LVEF and stress test neg ischemia). Male erectile disorder (Acute 08/29/13). Kidney stone (Acute 09/14/14). recurrent x3 on left. [facility] Urology. 10/12/16-[facility]; F/U Dr. Fair. Esophageal reflux (Acute). Bilateral kidney stones (Acute 10/27/16). Medical History . BPH loc w urin obs/LUTS. COPD (chronic obstructive pulmonary disease). CVA (cerebral vascular accident) (11/21/17). Diabetes mellitus (05/05/13). check A1c and creat. Hypertension. same meds, good BP here today. Myocardial infarction. Surgical History . Colonoscopy - MAC (05/16/13). Colonoscopy - MAC (11/13/16). Colostomy (~2006). TEMP W/ REVISION. Excision, Lipoma (05/19/16). posterior neck. Hernia Repair, Incisional. KNEE REPAIR. RIGHT. RESECTION. ANGIOFIBROMA;RIGHT FOOT 02/04/18. Stented coronary artery. 05/25/19 [facility]; s/p stent of old stent- [facility] PREVIOUS FUNCTIONAL STATUS/SOCIAL/FAMILY SUPPORTS:: Lawrence, also called Arcenio, lives in a mobile home in [facility]. He has a roomate named Charles who helps him and cooks dinner for him every night. Arcenio has 4 children, 11 grandchildren and 9 or 10 great grandchildren. 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 He uses a cane for ambulation. CURRENT FUNCTIONAL STATUS:: Arcenio was sitting up un bed when CM met with him. He was pleasant in interaction and agreeable to conversation. Arcenio talked a bit about his family. One of his daughters called while CM was in the room. After he hung up he told JESSICA that she races cars and has a race tonight. He added that he would like to go and will if he gets discharged. ADVANCE DIRECTIVES:: on file. [place]ver PERDUE Has patient been provided with info about the portal/API?: Yes Did the patient sign up for the portal?: No CODE STATUS:: Full Code INSURANCE COVERAGE / FINANCIAL ISSUES:: Medicare. Financial Assist 100 CURRENT HOME/COMMUNITY SERVICES/EQUIPMENT:: [employer] Wheels. uses a cane PRIMARY CARE PHYSICIAN:: Mike Burns POTENTIAL DISCHARGE NEEDS:: follow up with cardiology, PCP and plan of care PATIENT/FAMILY EDUCATION NEEDS:: Review of discharge instructions, limitations, medications, discuss Ask Me Three TRANSPORTATION:: via private vehicle with family PLAN:: Arcenio will be discharged home with no new services. He will follow up with his community providers and plan of care and transport with family.
[2022-03-20 23:27] LABS: Legionella Ag Detection Urine Negative (Negative)
[2022-03-21 16:07] LABS: Streptococcus Pneumoniae Ag, U Negative (Negative)
--- NOTE | 2022-04-21 12:27 | W.CARDEVENT ---
Date of service: 04/21/22 Time of Service: 12:28 Cardiac Event Recorder Referring Provider:: Jignesh Oneill Indications:: Coronary artery disease Cardiac Event Note: This is a 30-day cardiac event monitor, reportedly ordered for coronary artery disease. Predominant rhythm was sinus with an average heart rate of 80. Minimum was 56, maximum 108 First-degree AV block was noted. There were atrial and ventricular ectopic beats. There was a 4 beat run of nonsustained ventricular tachycardia There was no atrial fibrillation. The episode labeled atrial fibrillation was sinus rhythm with baseline artifact and premature atrial contractions There was no high-grade AV block, no pauses greater than 3 seconds
== END 2022-03-20 17:03 | disposition home or self-care (01) ==
LOC: ER 21:39 → MS 22:22
PROVIDERS: Internal Medicine; Physician Assistant; Admitting Provider Family Medicine; Emergency Provider Emergency Medicine; PCP Family Medicine; Visit Provider Family Medicine
DX: A41.9 Sepsis, unspecified organism (principal); J18.9 Pneumonia, unspecified organism; J44.0 Chronic obstructive pulmonary disease with (acute) lower respiratory infection; J44.1 Chronic obstructive pulmonary disease with (acute) exacerbation; R55 Syncope and collapse; E11.9 Type 2 diabetes mellitus without complications; Z86.73 Personal history of transient ischemic attack (TIA), and cerebral infarction without residual deficits; I10 Essential (primary) hypertension; E78.5 Hyperlipidemia, unspecified; K21.9 Gastro-esophageal reflux disease without esophagitis; I25.2 Old myocardial infarction; Z20.822 Contact with and (suspected) exposure to COVID-19; G89.29 Other chronic pain; M79.604 Pain in right leg; R51.9 Headache, unspecified; I49.3 Ventricular premature depolarization; H53.8 Other visual disturbances; R47.81 Slurred speech; F17.210 Nicotine dependence, cigarettes, uncomplicated; M06.9 Rheumatoid arthritis, unspecified; Z79.899 Other long term (current) drug therapy; Z79.4 Long term (current) use of insulin; D84.821 Immunodeficiency due to drugs; I25.10 Atherosclerotic heart disease of native coronary artery without angina pectoris; N17.9 Acute kidney failure, unspecified; V59.88XA Occupant (driver) (passenger) of pick-up truck or van injured in other specified transport accidents, initial encounter
CPT/HCPCS: 71275; 80048; 80053; 82805; 83690; 87040; 87449; 87637; 93005; 93270; 96361; 96365; 96366; 96368; 96372; 96375; 99285; J1650; 70450; 71046; 72125; 81003; 83036; 83605; 83735; 84484; 85025; 85379; 87899; 93010; 94640; 99217; J2930; J3490; J7512; J7620; J7626

== ENCOUNTER 2022-03-22 22:52 | Emergency (ER) | payer MEDICARE, SELFPAY ==
[2022-03-22 23:20] VITALS: BP 102/61; PULSE 85; TEMP 36.2; O2SAT 95
--- NOTE | 2022-03-22 23:21 | ED.GENADUL_ITS ---
Discharge Plan Disposition Patient Disposition: HOME Condition: Stable Discharge Details Clinical Impression: Palpitations Primary Care Provider: Mike Burns ED Provider: Chris Amaya Home Meds and New Rx's Prescriptions: Continued aspirin 81 mg tablet,chewable 81 mg PO DAILY ezetimibe 10 mg tablet 10 mg PO DAILY Qty: 30 11RF albuterol sulfate [Ventolin HFA] 90 mcg/actuation HFA aerosol inhaler 2 inh INHALATION Q6H PRN (Reason: bronchospasm) Qty: 8.5 3RF amlodipine 5 mg tablet 5 mg PO BID Qty: 180 3RF atorvastatin 80 mg tablet 80 mg PO QHS Qty: 90 3RF clopidogrel [Plavix] 75 mg tablet 75 mg PO DAILY Qty: 90 4RF Jardiance 25 mg tablet 25 mg PO DAILY Qty: 90 3RF nitroglycerin [Nitrostat] 0.4 mg tablet, sublingual 0.4 mg Sublingual PRN Qty: 25 11RF Rx Instructions: 1 TAB SL PRN (DME) lancets [FreeStyle Lancets] 28 gauge misc 1 ea Intradermal DAILY Qty: 300 4RF Rx Instructions: test TID sildenafil 100 mg tablet 100 mg PO DAILY PRN (Reason: sexual activity) Qty: 5 12RF Rx Instructions: administer 30 minutes to 4 hours before activity insulin glargine 100 unit/mL (3 mL) insulin pen 47 unit SC HS Qty: 45 3RF pantoprazole 40 mg tablet,delayed release (DR/EC) 40 mg PO DAILY Qty: 90 3RF Rx Instructions: TAKE 6 HOURS APART FROM YOUR PLAVIX tamsulosin 0.4 mg capsule 0.4 mg PO DAILY Qty: 30 12RF clotrimazole-betamethasone 1-0.05 % cream 1 applic topical BID Qty: 45 0RF Rx Instructions: Apply pea-sized amount twice daily to penile skin as directed. 2 weeks only unless directed otherwise (DME) Space Chamber Plus 1 EACH spacer 1 ea Miscellaneous PRN Qty: 1 infliximab [Remicade] 100 MG recon soln 1,000 mg IV .[id number] Label Comments: 05/31/15 Jacqui at [facility] [place] Rheumatology reports: 1000mg IV infusion every 6 months. Done at [facility] [place]. DL 03/05/17 q 4 months. si budesonide 0.5 mg/2 mL suspension for nebulization 0.5 mg Inhalation BID Qty: 60 11RF losartan 50 mg tablet 100 mg PO DAILY Qty: 180 3RF gabapentin 300 mg capsule See Rx Instructions .ROUTE .COMPLEX Qty: 90 5RF Dose Instruction: TAKE ONE CAPSULE BY MOUTH THREE TIMES A DAY Rx Instructions: TAKE ONE CAPSULE BY MOUTH THREE TIMES A DAY (DME) pen needle, diabetic [Advocate Pen Needle] 33 gauge x 5/32 needle See Rx Instructions .ROUTE .MEDSUPPLY Qty: 100 3RF Rx Instructions: inject once/day Trulicity 0.75 mg/0.5 mL pen injector 0.75 mg SC QWEEK Qty: 6 3RF (DME) FreeStyle Test Strip 1 strip Miscellaneous DAILY Qty: 300 4RF Rx Instructions: test three times/day fluticasone propionate 50 mcg/actuation spray,suspension 2 spray NS DAILY Qty: 1 8RF bebtelovimab 175 mg/2 mL (87.5 mg/mL) solution 175 mg IV ONCE Qty: 2 0RF Rx Instructions: as a single dose bupropion HCl 150 mg tablet sustained-release 12 hr 150 mg PO BID Qty: 180 3RF acetaminophen 650 MG tablet extended release 650 mg PO Q8H PRN (Reason: Pain) Qty: 20 0RF epinephrine 0.3 mg/0.3 mL auto-injector 0.3 mg IM ONCE Qty: 2 0RF Rx Instructions: as a single dose; may repeat once ondansetron HCl 4 mg tablet 1 mg PO Q8H PRN benzonatate 100 mg capsule 1 cap PO DAILY doxycycline hyclate 100 mg tablet 1 tab BID cyclosporine [Restasis] 0.05 % dropperette 1 drp BID Label Comments: INSTILL 1 DROP IN EACH EYE TWO TIMES A DAY prednisone 20 mg tablet 20 mg PO BID 5 Days Qty: 10 0RF levofloxacin 750 mg tablet 750 mg PO DAILY 5 Days Qty: 5 0RF ondansetron HCl [Zofran] 4 mg tablet 4 mg PO Q8H PRNQty: 10 0RF loratadine 10 mg capsule 10 mg PO DAILY Qty: 10 0RF Discharge Instructions Additional Instructions: follow up with your primary care provider if you feel more ill, have chest pain or difficulty breathing return to the emergency department Medical Decision Making 76 yo male who was admitted for sepsis and discharged yesterday with cardiac event monitor comes in with complaint the tape of the monitor isn't sticking starting tonight. Denies any other symptoms, no fevers, weakness, chest pain, dyspnea, palpitations or lightheadedness. Had the monitor placed for palpit ations per patient. He is in no distress on exam and the event monitor upper 2/3 is not sticking. He has a replacement patch in his home kit. I reviewed placement on the [employer] mini from [employer] on their website and was able to replace the patch and his gigi is now working on his phone whereas before it said error due to poor skin contact. 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 Date/Time Provider Initiated Documentation: 03/22/22 22:53 . Limitations to Documentation: no limitations . Information obtained by: patient . History of Present Illness 76 year old M presents to the emergency department with the chief complaint of tape for phototypesetting equipment monitor not sticking, described as mild, Patient started experiencing this hour(s) (2) and it has been constant. No relieving factors improve symptom(s), No exacerbating factors reported . Patient notes no other symptoms.. Patient did receive the following treatments prior to arrival, none Related Data Home Medications Medication Instructions Recorded Confirmed inhalational spacing device (Space ##1 05/27/15 02/04/22 Chamber Plus) infliximab 100 mg intravenous 1,000 mg IV .[id number] 05/31/15 02/04/22 solution (Remicade) acetaminophen 650 mg 650 mg PO Q8H PRN Pain ##20 04/30/17 02/04/22 tablet,extended release budesonide 0.5 mg/2 mL suspension 0.5 mg (2 mL) inhalation BID #60 mL 11/08/20 03/19/22 for nebulization lancets 28 gauge (FreeStyle #300 ea 11/22/20 02/04/22 Lancets) epinephrine 0.3 mg/0.3 mL 0.3 mg (0.3 mL) IM ONCE #2 ea 03/12/21 02/04/22 injection, auto-injector ondansetron HCl 4 mg tablet 4 mg PO Q8H PRN #10 tabs 08/20/21 05/25/22 (Zofran) losartan 50 mg tablet 100 mg PO DAILY #180 tabs 05/08/21 03/19/22 albuterol sulfate 90 mcg/actuation 2 inh inhalation Q6H PRN 05/27/21 03/19/22 aerosol inhaler (Ventolin HFA) bronchospasm #8.5 grams amlodipine 5 mg tablet 5 mg PO BID #180 tabs 05/27/21 03/19/22 aspirin 81 mg chewable tablet 81 mg PO DAILY 05/27/21 03/19/22 atorvastatin 80 mg tablet 80 mg PO QHS #90 tabs 05/27/21 03/19/22 clopidogrel 75 mg tablet (Plavix) 75 mg PO DAILY #90 tabs 05/27/21 03/19/22 empagliflozin 25 mg tablet 25 mg PO DAILY #90 tabs 05/27/21 03/19/22 (Jardiance) ezetimibe 10 mg tablet 10 mg PO DAILY #30 tabs 05/27/21 03/19/22 nitroglycerin 0.4 mg sublingual 0.4 mg sublingual PRN #25 tab-caps 05/27/21 02/04/22 tablet (Nitrostat) sildenafil 100 mg tablet 100 mg PO DAILY PRN sexual 08/05/21 02/04/22 activity #5 tabs insulin glargine 100 unit/mL (3 47 unit (0.47 mL) subcut HS #45 mL 08/29/21 03/19/22 mL) subcutaneous pen pantoprazole 40 mg tablet,delayed 40 mg PO DAILY #90 tabs 08/29/21 03/19/22 release tamsulosin 0.4 mg capsule 0.4 mg PO DAILY #30 caps 08/29/21 03/19/22 gabapentin 300 mg capsule See Rx Instructions .Route 10/31/21 03/19/22 .COMPLEX #90 caps pen needle, diabetic 33 gauge x #100 ea 11/10/21 02/04/2232 (Advocate Pen Needle) dulaglutide 0.75 mg/0.5 mL 0.75 mg (0.5 mL) subcut QWEEK #6 mL 12/05/21 03/19/22 subcutaneous pen injector (Trulicity) loratadine 10 mg capsule 10 mg PO DAILY #10 caps 12/28/21 02/04/22 blood sugar diagnostic (FreeStyle #300 strips 01/30/22 02/04/22 Test strips) fluticasone propionate 50 2 spray NS DAILY #1 g 01/30/22 03/19/22 mcg/actuation nasal spray,suspension bebtelovimab 175 mg/2 mL (87.5 175 mg (2 mL) IV ONCE #2 mL 02/04/22 02/04/22 mg/mL) intravenous solution (EUA) bupropion HCl 150 mg tablet,12 hr 150 mg PO BID #180 tabs 03/02/22 03/19/22 sustained-release clotrimazole-betamethasone 1 1 applic topical BID #45 grams 03/04/22 03/04/22 %-0.05 % topical cream benzonatate 100 mg capsule 1 cap PO DAILY 03/19/22 03/19/22 cyclosporine 0.05 % eye drops in a 1 drp BID 03/19/22 03/19/22 dropperette (Restasis) doxycycline hyclate 100 mg tablet 1 tab BID 03/19/22 03/19/22 ondansetron HCl 4 mg tablet 1 mg PO Q8H PRN 03/19/22 03/19/22 levofloxacin 750 mg tablet 750 mg PO DAILY 5 days #5 tabs 03/20/22 prednisone 20 mg tablet 20 mg PO BID 5 days #10 tabs 03/20/22 Previous Rx's Medication Instructions Recorded acetaminophen 650 mg 650 mg PO Q8H PRN Pain ##20 04/30/17 tablet,extended release budesonide 0.5 mg/2 mL suspension 0.5 mg (2 mL) inhalation BID #60 mL 11/08/20 for nebulization lancets 28 gauge (FreeStyle #300 ea 11/22/20 Lancets) epinephrine 0.3 mg/0.3 mL 0.3 mg (0.3 mL) IM ONCE #2 ea 03/12/21 injection, auto-injector ondansetron HCl 4 mg tablet 4 mg PO Q8H PRN #10 tabs 05/02/21 (Zofran) losartan 50 mg tablet 100 mg PO DAILY #180 tabs 05/08/21 albuterol sulfate 90 mcg/actuation 2 inh inhalation Q6H PRN 05/27/21 aerosol inhaler (Ventolin HFA) bronchospasm #8.5 grams amlodipine 5 mg tablet 5 mg PO BID #180 tabs 05/27/21 atorvastatin 80 mg tablet 80 mg PO QHS #90 tabs 05/27/21 clopidogrel 75 mg tablet (Plavix) 75 mg PO DAILY #90 tabs 05/27/21 empagliflozin 25 mg tablet 25 mg PO DAILY #90 tabs 05/27/21 (Jardiance) ezetimibe 10 mg tablet 10 mg PO DAILY #30 tabs 05/27/21 nitroglycerin 0.4 mg sublingual 0.4 mg sublingual PRN #25 tab-caps 05/27/21 tablet (Nitrostat) sildenafil 100 mg tablet 100 mg PO DAILY PRN sexual 08/05/21 activity #5 tabs insulin glargine 100 unit/mL (3 47 unit (0.47 mL) subcut HS #45 mL 08/29/21 mL) subcutaneous pen pantoprazole 40 mg tablet,delayed 40 mg PO DAILY #90 tabs 08/29/21 release tamsulosin 0.4 mg capsule 0.4 mg PO DAILY #30 caps 08/29/21 gabapentin 300 mg capsule See Rx Instructions .Route 10/31/21 .COMPLEX #90 caps pen needle, diabetic 33 gauge x #100 ea 11/10/21/32 (Advocate Pen Needle) dulaglutide 0.75 mg/0.5 mL 0.75 mg (0.5 mL) subcut QWEEK #6 mL 12/05/21 subcutaneous pen injector (Trulicity) loratadine 10 mg capsule 10 mg PO DAILY #10 caps 12/28/21 blood sugar diagnostic (FreeStyle #300 strips 01/30/22 Test strips) fluticasone propionate 50 2 spray NS DAILY #1 g 01/30/22 mcg/actuation nasal spray,suspension bebtelovimab 175 mg/2 mL (87.5 175 mg (2 mL) IV ONCE #2 mL 02/04/22 mg/mL) intravenous solution (EUA) bupropion HCl 150 mg tablet,12 hr 150 mg PO BID #180 tabs 03/02/22 sustained-release clotrimazole-betamethasone 1 1 applic topical BID #45 grams 03/04/22 %-0.05 % topical cream levofloxacin 750 mg tablet 750 mg PO DAILY 5 days #5 tabs 03/20/22 prednisone 20 mg tablet 20 mg PO BID 5 days #10 tabs 03/20/22 Allergies Allergy/AdvReac Type Severity Reaction Status Date / Time venom-honey bee Allergy Severe ANAPHYLAXSI Verified 03/19/22 19:08 [bee venom (honey bee)] S Sulfa (Sulfonamide Allergy Unknown unknown Verified 03/19/22 19:08 Antibiotics) leflunomide [From Arava] AdvReac Intermediate DIARRHEA Verified 03/19/22 19:08 metformin AdvReac Intermediate diarrhea Verified 03/19/22 19:08 General STAR: 2 Review of Systems All systems reviewed & are unremarkable except as noted in HPI and below Constitutional Constitutional: Denies chills, Denies fever(s) and Denies weakness Cardiovascular Cardiovascular: Denies chest pain and Denies dyspnea Respiratory Respiratory: Denies cough and Denies dyspnea Gastrointestinal Gastrointestinal: Denies abdominal pain, Denies nausea and Denies vomiting Genitourinary Genitourinary: Denies dysuria Musculoskeletal Musculoskeletal: Denies joint swelling Integumentary/Breasts Skin/Breast: Denies rash Neurologic Neurologic: Denies weakness PFSH All Active Problems (Updated 03/22/22 @ 23:42 by Chris Amaya MD) Acute kidney injury (Acute) Sepsis (Acute) Pneumonia (Acute) Back pain (Acute) Cyst (Acute) Leg pain, right (Acute) Diverticulitis (Chronic) Anaphylaxis due to hymenoptera venom (Acute) Acute exacerbation of chronic obstructive pulmonary disease (Acute) Rash (Acute) Mallet deformity of left ring finger (Acute 11/30/20) with avulsion fracture Otitis media (Acute) Serrated adenoma of colon (Acute ~07/2020) Tubular adenoma (Acute ~07/2020) tubular adenoma x7, repeat colo in 1 year Adenomatous polyps (Acute) Diverticula of colon (Acute) Degenerative lumbar spinal stenosis (Acute) Bilateral hip joint arthritis (Acute) Arthritis of knee, right (Acute) Chronic knee pain (Acute) Acute bilateral low back pain (Acute) Acute hyperglycemia (Acute) Fatigue (Acute) Bradycardia (Acute) Flank pain (Acute) RCA occlusion (Acute) 05/25/19 [facility] [place] Non-ST elevated myocardial infarction (Acute) ASCVD (arteriosclerotic cardiovascular disease) (Chronic 05/05/13) 2 NEW STENTS 04/22 H/O IMI; angioplasty and stent; [place] , 02/11; CVA/TIA Chronic obstructive lung disease (Chronic) pulmonary fibrosis on chest xray ongoing tobacco use add back budesonide nebs to see if we can improve cough Gastroesophageal reflux disease (Chronic) Hyperlipidemia (Chronic 05/05/13) Rheumatoid arthritis (Chronic 05/05/13) [facility] [place], Dr Leon Depressive disorder (Chronic) Diverticulitis of colon (Acute) History of incisional hernia repair (Acute) History of knee surgery (Acute) Lipoma (Acute) Erectile dysfunction (Chronic) Tubular adenoma (Acute) 11/20 COLONOSCOPY: ONE TUBULOVILLOUS ADENOMA & TWO TUBULAR ADENOMAS. 05/22/13: DR. Mateusz COPELAND:TUBULAR ADENOMAS 11/13/16: Dr Jian Crump: tublular and tubulovillous adenomas Smoker (Acute) Polyp of colon (Acute) 11/20 COLONOSCOPY: ONE TUBULOVILLOUS ADENOMA & TWO TUBULAR ADENOMAS. 05/22/13: DR. aMteusz COPELAND:TUBULAR ADENOMAS 11/13/16: Dr Jian Crump: tublular and tubulovillous adenomas Palpitations (Acute 11/04/12) multiple PVCs, bradycardia (2013) ([facility] [place], Dr Abraham, echo normal LVEF and stress test neg ischemia) Male erectile disorder (Acute 08/29/13) Kidney stone (Acute 09/14/14) recurrent x3 on left [facility] [place] Urology 10/12/16-[facility]; F/U Dr. Fair Esophageal reflux (Acute) Bilateral kidney stones (Acute 10/27/16) Medical History BPH loc w urin obs/LUTS COPD (chronic obstructive pulmonary disease) CVA (cerebral vascular accident) (11/21/17) Diabetes mellitus (05/05/13) check A1c and creat Hypertension same meds, good BP here today Myocardial infarction Surgical History Colonoscopy - MAC (05/16/13) Colonoscopy - MAC (11/13/16) Colostomy (~2006) TEMP W/ REVISION Excision, Lipoma (05/19/16) posterior neck Hernia Repair, Incisional KNEE REPAIR RIGHT RESECTION ANGIOFIBROMA;RIGHT FOOT 02/04/18 Stented coronary artery 05/25/19 [facility] [place]; s/p stent of old stent-KB Family History Mother Essential hypertension Heart disease Stroke Father Stroke Brother Heart disease Family History Diabetes Heart disease Cancer Brother No problems noted. Brother No problems noted. Sister No problems noted. Sister Alcohol abuse Social History Smoking/Tobacco Use Status: Current every day Tobacco Type: cigarettes Tobacco: How many years used: 60 Quit status: has quit before Second Hand Exposure: Yes Smoking risk assessment performed?: Yes Alcohol Intake: former Drug use: Never Substance use type: does not use Household members: family Housing: house Communication Needs: None Do you need help understanding health information?: Rarely Pets and animals: Yes Pets and animals: cat(s) Sexually active: No Current gender identity: male What is your relationship status?: How often do you talk on the phone with friends or family?: three or more times per week How often do you get together with friends or relatives?: twice per week How often do you attend methodist or catholic services?: decline to answer Do you belong to any clubs or organized social groups?: no Panel score (0-1 are the most socially isolated patients): 1 What type of physical activity do you participate in: walking Duration: < 15 minutes/day Frequency: 1-2 times per week Monika/Congregational: None Special monika needs: No Seatbelt use: sometimes Helmet use: No Drive intox or ride w/intox stage driver: No Do you feel safe at home: Yes Do you feel safe in your relationship?: Yes Additional Social history: Lives with roommate in trailer at [facility]. Retired [employer]. 4 adult kids in the area. Exam Const General: no acute distress Orientation: alert [facility] Head: normal to inspection Ears: external ears normal General nose exam: external nose normal Mouth: moist mucous membranes Eyes General: appearance normal, both eyes and all related structures Neck Neck: normal visual inspection Resp Effort & Inspection: normal respiratory effort and able to speak in complete sentences Cardio Rate: regular rate Skin General skin exam: no rashes or lesions noted Neuro General: patient alert and patient oriented x3 Extrem General: normal to inspection Psych Mental Status: mental status grossly normal
== END 2022-03-22 23:50 | disposition home or self-care (01) ==
PROVIDERS: Emergency Provider Emergency Medicine; PCP Family Medicine
DX: R00.2 Palpitations (principal); I10 Essential (primary) hypertension; E11.9 Type 2 diabetes mellitus without complications; J44.9 Chronic obstructive pulmonary disease, unspecified; F17.210 Nicotine dependence, cigarettes, uncomplicated; Z79.4 Long term (current) use of insulin; Z79.51 Long term (current) use of inhaled steroids; Z79.52 Long term (current) use of systemic steroids
CPT/HCPCS: 99281

== ENCOUNTER 2022-03-27 02:45 | Emergency (ER) | payer MEDICARE, SELFPAY ==
[2022-03-27 03:01] VITALS: BP 118/71; PULSE 63; RESP 22; TEMP 36.3; O2SAT 93
--- NOTE | 2022-03-27 03:08 | W.ED.GENAD ---
Discharge Plan Disposition Patient Disposition: HOME Condition: Good Discharge Details Clinical Impression: Holter monitor, abnormal Primary Care Provider: Mike Burns ED Provider: Nghia Cabrera Home Meds and New Rx's Prescriptions: No Action aspirin 81 mg tablet,chewable 81 mg PO DAILY albuterol sulfate [Ventolin HFA] 90 mcg/actuation HFA aerosol inhaler 2 inh INHALATION Q6H PRN (Reason: bronchospasm) Qty: 8.5 3RF amlodipine 5 mg tablet 5 mg PO BID Qty: 180 3RF atorvastatin 80 mg tablet 80 mg PO QHS Qty: 90 3RF clopidogrel [Plavix] 75 mg tablet 75 mg PO DAILY Qty: 90 4RF Jardiance 25 mg tablet 25 mg PO DAILY Qty: 90 3RF nitroglycerin [Nitrostat] 0.4 mg tablet, sublingual 0.4 mg Sublingual PRN Qty: 25 11RF Rx Instructions: 1 TAB SL PRN (DME) lancets [FreeStyle Lancets] 28 gauge misc 1 ea Intradermal DAILY Qty: 300 4RF Rx Instructions: test TID losartan 50 mg tablet 100 mg PO DAILY Qty: 180 3RF ezetimibe 10 mg tablet 10 mg PO DAILY Qty: 30 11RF sildenafil 100 mg tablet 100 mg PO DAILY PRN (Reason: sexual activity) Qty: 5 12RF Rx Instructions: administer 30 minutes to 4 hours before activity insulin glargine 100 unit/mL (3 mL) insulin pen 47 unit SC HS Qty: 45 3RF pantoprazole 40 mg tablet,delayed release (DR/EC) 40 mg PO DAILY Qty: 90 3RF Rx Instructions: TAKE 6 HOURS APART FROM YOUR PLAVIX tamsulosin 0.4 mg capsule 0.4 mg PO DAILY Qty: 30 12RF clotrimazole-betamethasone 1-0.05 % cream 1 applic topical BID Qty: 45 0RF Rx Instructions: Apply pea-sized amount twice daily to penile skin as directed. 2 weeks only unless directed otherwise (DME) Space Chamber Plus 1 EACH spacer 1 ea Miscellaneous PRN Qty: 1 infliximab [Remicade] 100 MG recon soln 1,000 mg IV .[id number] Label Comments: 05/31/15 Jacqui at [facility] Rheumatology reports: 1000mg IV infusion every 6 months. Done at [facility]. DL 03/05/17 q 4 months. si budesonide 0.5 mg/2 mL suspension for nebulization 0.5 mg Inhalation BID Qty: 60 11RF gabapentin 300 mg capsule See Rx Instructions .ROUTE .COMPLEX Qty: 90 5RF Dose Instruction: TAKE ONE CAPSULE BY MOUTH THREE TIMES A DAY Rx Instructions: TAKE ONE CAPSULE BY MOUTH THREE TIMES A DAY (DME) pen needle, diabetic [Advocate Pen Needle] 33 gauge x 5/32 needle See Rx Instructions .ROUTE .MEDSUPPLY Qty: 100 3RF Rx Instructions: inject once/day Trulicity 0.75 mg/0.5 mL pen injector 0.75 mg SC QWEEK Qty: 6 3RF (DME) FreeStyle Test Strip 1 strip Miscellaneous DAILY Qty: 300 4RF Rx Instructions: test three times/day fluticasone propionate 50 mcg/actuation spray,suspension 2 spray NS DAILY Qty: 1 8RF bebtelovimab 175 mg/2 mL (87.5 mg/mL) solution 175 mg IV ONCE Qty: 2 0RF Rx Instructions: as a single dose bupropion HCl 150 mg tablet sustained-release 12 hr 150 mg PO BID Qty: 180 3RF acetaminophen 650 MG tablet extended release 650 mg PO Q8H PRN (Reason: Pain) Qty: 20 0RF epinephrine 0.3 mg/0.3 mL auto-injector 0.3 mg IM ONCE Qty: 2 0RF Rx Instructions: as a single dose; may repeat once ondansetron HCl 4 mg tablet 1 mg PO Q8H PRN benzonatate 100 mg capsule 1 cap PO DAILY doxycycline hyclate 100 mg tablet 1 tab BID cyclosporine [Restasis] 0.05 % dropperette 1 drp BID Label Comments: INSTILL 1 DROP IN EACH EYE TWO TIMES A DAY ondansetron HCl [Zofran] 4 mg tablet 4 mg PO Q8H PRNQty: 10 0RF loratadine 10 mg capsule 10 mg PO DAILY Qty: 10 0RF Discharge Instructions Additional Instructions: At this time your Holter monitor is functioning properly. If you have any questions or concerns do not hesitate to contact the respiratory therapy department, or myself over the next 4 evenings while I am working. If you notice any worsening of your symptoms, or any new symptoms such as vomiting, diarrhea, fever, chills, shortness of breath, chest pain, numbness, weakness, or fainting , please return immediately to the emergency department for reevaluation. Please follow up with your primary care provider as soon as possible for reassessment and reevaluation. As always, it was a pleasure participating in your medical care today. Referrals: Mike Burns MD [Primary Care Provider] - Medical Decision Making This is a 76-year-old male who was recently admitted for sepsis pneumonia and COPD, he was discharged with a Holter monitor. He presents tonight because the monitor said that there was no contact on his skin. He denies any accidental removal of the device. He denies any other complications. He states simply that the phone itself was saying that there was no good skin contact and so he came in to be evaluated. He denies syncope, chest pain, cough, fever or chills. By the time the patient got his close off, and was being evaluated the monitor no longer demonstrated any complication. It was reading well, showed good skin adhesion, and showed no challenge with communication. Patient stable for discharge. He is requesting to go home. I did discuss with him the importance of prompt return if he has any worsening of his symptoms, I also told him he could call and I could speak to him anytime during the night if he had questions about his monitor prior to coming it. I have extensively reviewed the treatment plan and discharge instructions with the patient. I have addressed all patient concerns at this time. The patient was made aware of what symptoms to monitor for that would warrant a return to the emergency department. Discussed the plan with the patient, they demonstrate verbal understanding and agreement with our assessment and plan at this time. The documentation in this chart was dictated using [email or web address] dictation software. Please excuse any dictation errors. HPI General Date/Time Provider Initiated Documentation: 03/27/22 02:46. HPI Narrative: This is a 76-year-old male who was recently admitted for sepsis pneumonia and COPD, he was discharged with a Holter monitor. He presents tonight because the monitor said that there was no contact on his skin. He denies any accidental removal of the device. He denies any other complications. He states simply that the phone itself was saying that there was no good skin contact and so he came in to be evaluated. He denies syncope, chest pain, cough, fever or chills. Related Data Home Medications Medication Instructions Recorded Confirmed inhalational spacing device (Space ##1 05/27/15 03/25/22 Chamber Plus) infliximab 100 mg intravenous 1,000 mg IV .[id number] 05/31/15 03/27/22 solution (Remicade) acetaminophen 650 mg 650 mg PO Q8H PRN Pain ##20 04/30/17 03/27/22 tablet,extended release budesonide 0.5 mg/2 mL suspension 0.5 mg (2 mL) inhalation BID #60 mL 11/08/20 03/27/22 for nebulization lancets 28 gauge (FreeStyle #300 ea 11/22/20 03/25/22 Lancets) epinephrine 0.3 mg/0.3 mL 0.3 mg (0.3 mL) IM ONCE #2 ea 03/12/21 03/27/22 injection, auto-injector ondansetron HCl 4 mg tablet 4 mg PO Q8H PRN #10 tabs 05/02/21 03/27/22 (Zofran) albuterol sulfate 90 mcg/actuation 2 inh inhalation Q6H PRN 05/27/21 03/27/22 aerosol inhaler (Ventolin HFA) bronchospasm #8.5 grams amlodipine 5 mg tablet 5 mg PO BID #180 tabs 05/27/21 03/27/22 aspirin 81 mg chewable tablet 81 mg PO DAILY 05/27/21 03/27/22 atorvastatin 80 mg tablet 80 mg PO QHS #90 tabs 05/27/21 03/27/22 clopidogrel 75 mg tablet (Plavix) 75 mg PO DAILY #90 tabs 05/27/21 03/27/22 empagliflozin 25 mg tablet 25 mg PO DAILY #90 tabs 05/27/21 03/27/22 (Jardiance) nitroglycerin 0.4 mg sublingual 0.4 mg sublingual PRN #25 tab-caps 05/27/21 03/27/22 tablet (Nitrostat) sildenafil 100 mg tablet 100 mg PO DAILY PRN sexual 08/05/21 03/27/22 activity #5 tabs insulin glargine 100 unit/mL (3 47 unit (0.47 mL) subcut HS #45 mL 08/29/21 03/27/22 mL) subcutaneous pen pantoprazole 40 mg tablet,delayed 40 mg PO DAILY #90 tabs 08/29/21 03/27/22 release tamsulosin 0.4 mg capsule 0.4 mg PO DAILY #30 caps 08/29/21 03/27/22 gabapentin 300 mg capsule See Rx Instructions .Route 10/31/21 03/27/22 .COMPLEX #90 caps pen needle, diabetic 33 gauge x #100 ea 11/10/21 03/25/22 (Advocate Pen Needle) dulaglutide 0.75 mg/0.5 mL 0.75 mg (0.5 mL) subcut QWEEK #6 mL 12/05/21 03/27/22 subcutaneous pen injector (Trulicity) loratadine 10 mg capsule 10 mg PO DAILY #10 caps 12/28/21 03/27/22 blood sugar diagnostic (FreeStyle #300 strips 01/30/22 03/25/22 Test strips) fluticasone propionate 50 2 spray NS DAILY #1 g 01/30/22 03/27/22 mcg/actuation nasal spray,suspension bebtelovimab 175 mg/2 mL (87.5 175 mg (2 mL) IV ONCE #2 mL 02/04/22 03/27/22 mg/mL) intravenous solution (EUA) bupropion HCl 150 mg tablet,12 hr 150 mg PO BID #180 tabs 03/02/22 03/27/22 sustained-release clotrimazole-betamethasone 1 1 applic topical BID #45 grams 03/04/22 03/27/22 %-0.05 % topical cream benzonatate 100 mg capsule 1 cap PO DAILY 03/19/22 03/27/22 cyclosporine 0.05 % eye drops in a 1 drp BID 03/19/22 03/27/22 dropperette (Restasis) doxycycline hyclate 100 mg tablet 1 tab BID 03/19/22 03/27/22 ondansetron HCl 4 mg tablet 1 mg PO Q8H PRN 03/19/22 03/27/22 ezetimibe 10 mg tablet 10 mg PO DAILY #30 tabs 03/25/22 03/27/22 losartan 50 mg tablet 100 mg PO DAILY #180 tabs 03/25/22 03/27/22 Previous Rx's Medication Instructions Recorded acetaminophen 650 mg 650 mg PO Q8H PRN Pain ##20 04/30/17 tablet,extended release budesonide 0.5 mg/2 mL suspension 0.5 mg (2 mL) inhalation BID #60 mL 11/08/20 for nebulization lancets 28 gauge (FreeStyle #300 ea 11/22/20 Lancets) epinephrine 0.3 mg/0.3 mL 0.3 mg (0.3 mL) IM ONCE #2 ea 03/12/21 injection, auto-injector ondansetron HCl 4 mg tablet 4 mg PO Q8H PRN #10 tabs 05/02/21 (Zofran) albuterol sulfate 90 mcg/actuation 2 inh inhalation Q6H PRN 05/27/21 aerosol inhaler (Ventolin HFA) bronchospasm #8.5 grams amlodipine 5 mg tablet 5 mg PO BID #180 tabs 05/27/21 atorvastatin 80 mg tablet 80 mg PO QHS #90 tabs 05/27/21 clopidogrel 75 mg tablet (Plavix) 75 mg PO DAILY #90 tabs 05/27/21 empagliflozin 25 mg tablet 25 mg PO DAILY #90 tabs 05/27/21 (Jardiance) nitroglycerin 0.4 mg sublingual 0.4 mg sublingual PRN #25 tab-caps 05/27/21 tablet (Nitrostat) sildenafil 100 mg tablet 100 mg PO DAILY PRN sexual 08/05/21 activity #5 tabs insulin glargine 100 unit/mL (3 47 unit (0.47 mL) subcut HS #45 mL 08/29/21 mL) subcutaneous pen pantoprazole 40 mg tablet,delayed 40 mg PO DAILY #90 tabs 08/29/21 release tamsulosin 0.4 mg capsule 0.4 mg PO DAILY #30 caps 08/29/21 gabapentin 300 mg capsule See Rx Instructions .Route 10/31/21 .COMPLEX #90 caps pen needle, diabetic 33 gauge x #100 ea 11/10/21 (Advocate Pen Needle) dulaglutide 0.75 mg/0.5 mL 0.75 mg (0.5 mL) subcut QWEEK #6 mL 12/05/21 subcutaneous pen injector (Trulicity) loratadine 10 mg capsule 10 mg PO DAILY #10 caps 12/28/21 blood sugar diagnostic (FreeStyle #300 strips 01/30/22 Test strips) fluticasone propionate 50 2 spray NS DAILY #1 g 01/30/22 mcg/actuation nasal spray,suspension bebtelovimab 175 mg/2 mL (87.5 175 mg (2 mL) IV ONCE #2 mL 02/04/22 mg/mL) intravenous solution (EUA) bupropion HCl 150 mg tablet,12 hr 150 mg PO BID #180 tabs 03/02/22 sustained-release clotrimazole-betamethasone 1 1 applic topical BID #45 grams 03/04/22 %-0.05 % topical cream ezetimibe 10 mg tablet 10 mg PO DAILY #30 tabs 03/25/22 losartan 50 mg tablet 100 mg PO DAILY #180 tabs 03/25/22 Allergies Allergy/AdvReac Type Severity Reaction Status Date / Time venom-honey bee Allergy Severe ANAPHYLAXSI Verified 03/27/22 03:04 [bee venom (honey bee)] S Sulfa (Sulfonamide Allergy Unknown unknown Verified 03/27/22 03:04 Antibiotics) leflunomide [From Arava] AdvReac Intermediate DIARRHEA Verified 03/27/22 03:04 metformin AdvReac Intermediate diarrhea Verified 03/27/22 03:04 General Stated Complaint: Recheck STAR: 4 Review of Systems All systems reviewed & are unremarkable except as noted in HPI and below PFSH All Active Problems (Updated 03/27/22 @ 03:09 by Nghia Cabrera DO) Holter monitor, abnormal (Acute) Hypoxia (Acute) Screening for colon cancer (Acute) Pneumonia (Acute) Back pain (Acute) Cyst (Acute) Leg pain, right (Acute) Diverticulitis (Chronic) Anaphylaxis due to hymenoptera venom (Acute) Acute exacerbation of chronic obstructive pulmonary disease (Acute) Rash (Acute) Mallet deformity of left ring finger (Acute 11/30/20) with avulsion fracture Otitis media (Acute) Serrated adenoma of colon (Acute ~07/2020) Tubular adenoma (Acute ~07/2020) tubular adenoma x7, repeat colo in 1 year Adenomatous polyps (Acute) Diverticula of colon (Acute) Degenerative lumbar spinal stenosis (Acute) Bilateral hip joint arthritis (Acute) Arthritis of knee, right (Acute) Chronic knee pain (Acute) Acute bilateral low back pain (Acute) Acute hyperglycemia (Acute) Fatigue (Acute) Bradycardia (Acute) Flank pain (Acute) RCA occlusion (Acute) 05/25/19 [facility] Non-ST elevated myocardial infarction (Acute) Chronic obstructive lung disease (Chronic) pulmonary fibrosis on chest xray ongoing tobacco use add back budesonide nebs to see if we can improve cough Gastroesophageal reflux disease (Chronic) Hyperlipidemia (Chronic 05/05/13) Depressive disorder (Chronic) Diverticulitis of colon (Acute) History of incisional hernia repair (Acute) History of knee surgery (Acute) Lipoma (Acute) Erectile dysfunction (Chronic) Tubular adenoma (Acute) 11/20 COLONOSCOPY: ONE TUBULOVILLOUS ADENOMA & TWO TUBULAR ADENOMAS. 05/22/13: DR. Mateusz COPELAND:TUBULAR ADENOMAS 11/13/16: Dr Jian Crump: tublular and tubulovillous adenomas Smoker (Acute) Polyp of colon (Acute) 11/20 COLONOSCOPY: ONE TUBULOVILLOUS ADENOMA & TWO TUBULAR ADENOMAS. 05/22/13: DR. Mateusz COPELAND:TUBULAR ADENOMAS 11/13/16: Dr Jian Crump: tublular and tubulovillous adenomas Palpitations (Acute 11/04/12) multiple PVCs, bradycardia (2013) ([facility], Dr Abraham, echo normal LVEF and stress test neg ischemia) Male erectile disorder (Acute 08/29/13) Kidney stone (Acute 09/14/14) recurrent x3 on left [facility] Urology 10/12/16-[facility]; F/U Dr. Fair Esophageal reflux (Acute) Bilateral kidney stones (Acute 10/27/16) Medical History BPH loc w urin obs/LUTS COPD (chronic obstructive pulmonary disease) CVA (cerebral vascular accident) (11/21/17) Diabetes mellitus (05/05/13) check A1c and creat Hypertension same meds, good BP here today Myocardial infarction Surgical History Colonoscopy - MAC (05/16/13) Colonoscopy - MAC (11/13/16) Colostomy (~2006) TEMP W/ REVISION Excision, Lipoma (05/19/16) posterior neck Hernia Repair, Incisional KNEE REPAIR RIGHT RESECTION ANGIOFIBROMA;RIGHT FOOT 02/04/18 Stented coronary artery 05/25/19 [facility]; s/p stent of old stent-KB Family History Mother Essential hypertension Heart disease Stroke Father Stroke Brother Heart disease Family History Diabetes Heart disease Cancer Brother No problems noted. Brother No problems noted. Sister No problems noted. Sister Alcohol abuse Social History Smoking/Tobacco Use Status: Current every day Tobacco Type: cigarettes Tobacco: How many years used: 60 Quit status: has quit before Second Hand Exposure: Yes Smoking risk assessment performed?: Yes Alcohol Intake: former Drug use: Never Substance use type: does not use Household members: family Housing: house Communication Needs: None Do you need help understanding health information?: Rarely Pets and animals: Yes Pets and animals: cat(s) Sexually active: No Current gender identity: male What is your relationship status?: How often do you talk on the phone with friends or family?: three or more times per week How often do you get together with friends or relatives?: twice per week How often do you attend mandaen or holiness services?: decline to answer Do you belong to any clubs or organized social groups?: no Panel score (0-1 are the most socially isolated patients): 1 What type of physical activity do you participate in: walking Duration: < 15 minutes/day Frequency: 1-2 times per week Monika/Zoroastrianism: None Special monika needs: No Seatbelt use: sometimes Helmet use: No Drive intox or ride w/intox rivet driver: No Do you feel safe at home: Yes Do you feel safe in your relationship?: Yes Additional Social history: Lives with roommate in trailer at [facility]. 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 4 adult kids in the area. Exam Narrative Exam Narrative: 1.Const: Well-nourished, Well-developed, appearing stated age 2.Eyes: PERRL, no conjunctival injection, and symmetrical lids. 3.ENT: Atraumatic external nose and ears. Moist MM. Neck: Symmetric, trachea midline, No thyromegaly. 4.CVS: +S1/S2, No murmurs or gallops. Peripheral pulses 2+ and equal in all extremities. Brisk capillary refill in all extremities. 5.RESP: Unlabored respiratory effort. Clear to auscultation bilaterally. No wheezes rales or rhonchi 6.GI: Soft, Nontender/Nondistended, No hepatosplenomegaly. No guarding or rebound. 7.MSK: Normocephalic/Atraumatic, Extremities w/o deformity or ttp No cyanosis or clubbing, Normal movement of all extremities 8.Skin: Warm, Dry. No rashes or lesions. 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 Review of the monitor on the phone states that there is no problem there is good skin contact, and no difficulty with reading. 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 Sensation grossly intact, no focal neurologic deficits. 10.Psych: (AAO) x3. Appropriate mood and affect Course Vital Signs Vital signs: Vital Signs Temperature 36.3 C L 03/27/22 03:01 Pulse 63 03/27/22 03:01 Respiratory Rate 22 03/27/22 03:01 Blood Pressure 118/71 03/27/22 03:01 Pulse Oximetry 93 03/27/22 03:01 Temperature 36.3 C L 03/27/22 03:01 Temperature Source Skin 03/27/22 03:01 Pulse 63 03/27/22 03:01 Respiratory Rate 22 03/27/22 03:01 Blood Pressure 118/71 03/27/22 03:01 Blood Pressure Position Supine 03/27/22 03:01 Pulse Oximetry 93 03/27/22 03:01 Oxygen Delivery Method Room Air 03/27/22 03:01 Oxygen Flow Rate 0 03/27/22 03:01 Pain Level 0 03/27/22 03:01
[2022-03-27 03:15] VITALS: BP 118/71; PULSE 63; RESP 22; TEMP 36.3; O2SAT 93
== END 2022-03-27 03:14 | disposition home or self-care (01) ==
PROVIDERS: Emergency Provider Student in an Organized Health Care Education/Training Program; PCP Family Medicine
DX: R94.39 Abnormal result of other cardiovascular function study (principal); J44.9 Chronic obstructive pulmonary disease, unspecified; I10 Essential (primary) hypertension; E11.9 Type 2 diabetes mellitus without complications; I25.2 Old myocardial infarction; F17.210 Nicotine dependence, cigarettes, uncomplicated; Z86.73 Personal history of transient ischemic attack (TIA), and cerebral infarction without residual deficits; Z79.51 Long term (current) use of inhaled steroids; Z79.82 Long term (current) use of aspirin; Z79.4 Long term (current) use of insulin
CPT/HCPCS: 99281

== ENCOUNTER 2022-04-21 12:28 | Outpatient (CLI) | payer MEDICARE, SELFPAY | END 2022-04-21 12:29 | LOC: CARDO 04-22 11:10 | PROVIDERS: PCP Family Medicine; Visit Provider Internal Medicine Cardiovascular Disease | DX: I44.0 Atrioventricular block, first degree (principal); I47.2 Ventricular tachycardia | CPT/HCPCS: 93272 ==

== ENCOUNTER 2022-04-24 11:18 | Emergency (ER) | payer MEDICARE, SELFPAY ==
[2022-04-24 11:26] VITALS: BP 101/60; PULSE 70; RESP 18; TEMP 36.3; O2SAT 94
--- NOTE | 2022-04-24 11:30 | DI.RAD_ITS ---
Exam(s) XR KNEE RT 3V AP,LAT,MARCUS EXAM: XR KNEE RT 3V AP,LAT,MARCUS CLINICAL HISTORY: effusion, pain. TECHNIQUE: 2D digital imaging was performed. Three views. COMPARISON: CR XR KNEE RT 3V AP,LAT,MARCUS from 03/06/2020 FINDINGS: BONES: No acute fracture is present. No bony destructive lesion is seen. A degenerative cyst is again noted in the region of the tibial spines. JOINTS: The knee is normally aligned. A large joint effusion is seen. There are degenerative change s greatest of the medial femoral tibial joint. SOFT TISSUE: Vascular calcifications. IMPRESSION: Large joint effusion. DATA REPOSITORY: RADIATION DOSE DELIVERED:
--- NOTE | 2022-04-24 11:56 | ED.GENADUL_ITS ---
Discharge Plan Disposition Patient Disposition: HOME Condition: Stable Discharge Details Clinical Impression: Effusion of knee joint Primary Care Provider: Mike Burns ED Provider: Leona De Santiago Home Meds and New Rx's Prescriptions: New diclofenac sodium 1 % gel 2 g topical QID Qty: 100 0RF Rx Instructions: apply to single elbow, wrist or hand; for hand includes palm/fingers/back of hand Continued aspirin 81 mg tablet,chewable 81 mg PO DAILY albuterol sulfate [Ventolin HFA] 90 mcg/actuation HFA aerosol inhaler 2 inh INHALATION Q6H PRN (Reason: bronchospasm) Qty: 8.5 3RF amlodipine 5 mg tablet 5 mg PO BID Qty: 180 3RF atorvastatin 80 mg tablet 80 mg PO QHS Qty: 90 3RF clopidogrel [Plavix] 75 mg tablet 75 mg PO DAILY Qty: 90 4RF Jardiance 25 mg tablet 25 mg PO DAILY Qty: 90 3RF nitroglycerin [Nitrostat] 0.4 mg tablet, sublingual 0.4 mg Sublingual PRN Qty: 25 11RF Rx Instructions: 1 TAB SL PRN (DME) lancets [FreeStyle Lancets] 28 gauge misc 1 ea Intradermal DAILY Qty: 300 4RF Rx Instructions: test TID losartan 50 mg tablet 100 mg PO DAILY Qty: 180 3RF insulin glargine 100 unit/mL (3 mL) insulin pen 47 unit SC HS Qty: 45 3RF pantoprazole 40 mg tablet,delayed release (DR/EC) 40 mg PO DAILY Qty: 90 3RF Rx Instructions: TAKE 6 HOURS APART FROM YOUR PLAVIX tamsulosin 0.4 mg capsule 0.4 mg PO DAILY Qty: 30 12RF clotrimazole-betamethasone 1-0.05 % cream 1 applic topical BID Qty: 45 0RF Rx Instructions: Apply pea-sized amount twice daily to penile skin as directed. 2 weeks only unless directed otherwise (DME) Space Chamber Plus 1 EACH spacer 1 ea Miscellaneous PRN Qty: 1 infliximab [Remicade] 100 MG recon soln 1,000 mg IV .[id number] Label Comments: 05/31/15 Jacqui at [facility] [place] reports: 1000mg IV infusion every 6 months. Done at [facility]. DL 03/05/17 q 4 months. si budesonide 0.5 mg/2 mL suspension for nebulization 0.5 mg Inhalation BID Qty: 60 11RF gabapentin 300 mg capsule See Rx Instructions .ROUTE .COMPLEX Qty: 90 5RF Dose Instruction: TAKE ONE CAPSULE BY MOUTH THREE TIMES A DAY Rx Instructions: TAKE ONE CAPSULE BY MOUTH THREE TIMES A DAY (DME) pen needle, diabetic [Advocate Pen Needle] 33 gauge x 5/32 needle See Rx Instructions .ROUTE .MEDSUPPLY Qty: 100 3RF Rx Instructions: inject once/day Trulicity 0.75 mg/0.5 mL pen injector 0.75 mg SC QWEEK Qty: 6 3RF (DME) FreeStyle Test Strip 1 strip Miscellaneous DAILY Qty: 300 4RF Rx Instructions: test three times/day fluticasone propionate 50 mcg/actuation spray,suspension 2 spray NS DAILY Qty: 1 8RF bebtelovimab 175 mg/2 mL (87.5 mg/mL) solution 175 mg IV ONCE Qty: 2 0RF Rx Instructions: as a single dose bupropion HCl 150 mg tablet sustained-release 12 hr 150 mg PO BID Qty: 180 3RF sildenafil 100 mg tablet 100 mg PO DAILY PRN (Reason: sexual activity) Qty: 5 12RF Rx Instructions: administer 30 minutes to 4 hours before activity ezetimibe 10 mg tablet 10 mg PO DAILY Qty: 90 4RF acetaminophen 650 MG tablet extended release 650 mg PO Q8H PRN (Reason: Pain) Qty: 20 0RF epinephrine 0.3 mg/0.3 mL auto-injector 0.3 mg IM ONCE Qty: 2 0RF Rx Instructions: as a single dose; may repeat once ondansetron HCl 4 mg tablet 1 mg PO Q8H PRN benzonatate 100 mg capsule 1 cap PO DAILY doxycycline hyclate 100 mg tablet 1 tab BID cyclosporine [Restasis] 0.05 % dropperette 1 drp BID Label Comments: INSTILL 1 DROP IN EACH EYE TWO TIMES A DAY ondansetron HCl [Zofran] 4 mg tablet 4 mg PO Q8H PRNQty: 10 0RF loratadine 10 mg capsule 10 mg PO DAILY Qty: 10 0RF Discharge Instructions Additional Instructions: Take Tylenol 650 mg every 6 hours as needed for pain Apply the diclofenac gel every 6 hours for pain You may wear your splint and follow-up with the orthopedist listed below Please return earlier should you have new or worsening complaints Referrals: Scott Castellanos MD [ [facility] STAFF PHYSICIAN] - Mike Burns MD [Primary Care Provider] - Discharge Data Discharge Date/Time-TO BE ENTERED AT DEPARTURE: 04/24/22 12:59 Medical Decision Making large joint effusion noted on xray no erythema or evidence of septic joint place in hinged knee brace and referred to orthopedics no indication for emergent arthrocentesis no evidence of dvt return precautions discussed and pt expressed understanding pcp recheck recommended in outpatient setting tylenol prn pain Medical Records Medical records reviewed: Yes I reviewed the patient's medical records. Lab Data Lab results reviewed: Yes I reviewed the patient's lab results. HPI General Date/Time Provider Initiated Documentation: 04/24/22 11:33 . HPI Narrative: This 76-year-old gentleman presents with right knee pain and swelling for the past 6 weeks with slightly worsening swelling and pain this week. Denies known injury. Worsened with ambulation. Reports pain is improving for the morning and worsens with stable glasses. Denies any calf pain or swelling. Denies any chest pain or shortness of breath. Denies any dizziness or weakness. She denies any redness or known tick bites. Most Related Data Home Medications Medication Instructions Recorded Confirmed inhalational spacing device (Space ##1 05/27/15 03/25/22 Chamber Plus) infliximab 100 mg intravenous 1,000 mg IV .[id number] 05/31/15 03/27/22 solution (Remicade) acetaminophen 650 mg 650 mg PO Q8H PRN Pain ##20 04/30/17 03/27/22 tablet,extended release budesonide 0.5 mg/2 mL suspension 0.5 mg (2 mL) inhalation BID #60 mL 11/08/20 03/27/22 for nebulization lancets 28 gauge (FreeStyle #300 ea 11/22/20 03/25/22 Lancets) epinephrine 0.3 mg/0.3 mL 0.3 mg (0.3 mL) IM ONCE #2 ea 03/12/21 03/27/22 injection, auto-injector ondansetron HCl 4 mg tablet 4 mg PO Q8H PRN #10 tabs 05/02/21 03/27/22 (Zofran) albuterol sulfate 90 mcg/actuation 2 inh inhalation Q6H PRN 05/27/21 03/27/22 aerosol inhaler (Ventolin HFA) bronchospasm #8.5 grams amlodipine 5 mg tablet 5 mg PO BID #180 tabs 05/27/21 03/27/22 aspirin 81 mg chewable tablet 81 mg PO DAILY 05/27/21 03/27/22 atorvastatin 80 mg tablet 80 mg PO QHS #90 tabs 05/27/21 03/27/22 clopidogrel 75 mg tablet (Plavix) 75 mg PO DAILY #90 tabs 05/27/21 03/27/22 empagliflozin 25 mg tablet 25 mg PO DAILY #90 tabs 05/27/21 03/27/22 (Jardiance) nitroglycerin 0.4 mg sublingual 0.4 mg sublingual PRN #25 tab-caps 05/27/21 03/27/22 tablet (Nitrostat) insulin glargine 100 unit/mL (3 47 unit (0.47 mL) subcut HS #45 mL 08/29/21 03/27/22 mL) subcutaneous pen pantoprazole 40 mg tablet,delayed 40 mg PO DAILY #90 tabs 08/29/21 03/27/22 release tamsulosin 0.4 mg capsule 0.4 mg PO DAILY #30 caps 08/29/21 03/27/22 gabapentin 300 mg capsule See Rx Instructions .Route 10/31/21 03/27/22 .COMPLEX #90 caps pen needle, diabetic 33 gauge x #100 ea 11/10/21 03/25/2232 (Advocate Pen Needle) dulaglutide 0.75 mg/0.5 mL 0.75 mg (0.5 mL) subcut QWEEK #6 mL 12/05/21 03/27/22 subcutaneous pen injector (Trulicity) loratadine 10 mg capsule 10 mg PO DAILY #10 caps 12/28/21 03/27/22 blood sugar diagnostic (FreeStyle #300 strips 01/30/22 03/25/22 Test strips) fluticasone propionate 50 2 spray NS DAILY #1 g 01/30/22 03/27/22 mcg/actuation nasal spray,suspension bebtelovimab 175 mg/2 mL (87.5 175 mg (2 mL) IV ONCE #2 mL 02/04/22 03/27/22 mg/mL) intravenous solution (EUA) bupropion HCl 150 mg tablet,12 hr 150 mg PO BID #180 tabs 03/02/22 03/27/22 sustained-release clotrimazole-betamethasone 1 1 applic topical BID #45 grams 03/04/22 03/27/22 %-0.05 % topical cream benzonatate 100 mg capsule 1 cap PO DAILY 03/19/22 03/27/22 cyclosporine 0.05 % eye drops in a 1 drp BID 03/19/22 03/27/22 dropperette (Restasis) doxycycline hyclate 100 mg tablet 1 tab BID 03/19/22 03/27/22 ondansetron HCl 4 mg tablet 1 mg PO Q8H PRN 03/19/22 03/27/22 losartan 50 mg tablet 100 mg PO DAILY #180 tabs 03/25/22 03/27/22 sildenafil 100 mg tablet 100 mg PO DAILY PRN sexual 04/01/22 activity #5 tabs ezetimibe 10 mg tablet 10 mg PO DAILY #90 tabs 04/17/22 diclofenac sodium 1 % topical gel 2 g topical QID #100 grams 04/24/22 Previous Rx's Medication Instructions Recorded acetaminophen 650 mg 650 mg PO Q8H PRN Pain ##20 04/30/17 tablet,extended release budesonide 0.5 mg/2 mL suspension 0.5 mg (2 mL) inhalation BID #60 mL 11/08/20 for nebulization lancets 28 gauge (FreeStyle #300 ea 11/22/20 Lancets) epinephrine 0.3 mg/0.3 mL 0.3 mg (0.3 mL) IM ONCE #2 ea 03/12/21 injection, auto-injector ondansetron HCl 4 mg tablet 4 mg PO Q8H PRN #10 tabs 05/02/21 (Zofran) albuterol sulfate 90 mcg/actuation 2 inh inhalation Q6H PRN 05/27/21 aerosol inhaler (Ventolin HFA) bronchospasm #8.5 grams amlodipine 5 mg tablet 5 mg PO BID #180 tabs 05/27/21 atorvastatin 80 mg tablet 80 mg PO QHS #90 tabs 05/27/21 clopidogrel 75 mg tablet (Plavix) 75 mg PO DAILY #90 tabs 05/27/21 empagliflozin 25 mg tablet 25 mg PO DAILY #90 tabs 05/27/21 (Jardiance) nitroglycerin 0.4 mg sublingual 0.4 mg sublingual PRN #25 tab-caps 05/27/21 tablet (Nitrostat) insulin glargine 100 unit/mL (3 47 unit (0.47 mL) subcut HS #45 mL 08/29/21 mL) subcutaneous pen pantoprazole 40 mg tablet,delayed 40 mg PO DAILY #90 tabs 08/29/21 release tamsulosin 0.4 mg capsule 0.4 mg PO DAILY #30 caps 08/29/21 gabapentin 300 mg capsule See Rx Instructions .Route 10/31/21 .COMPLEX #90 caps pen needle, diabetic 33 gauge x #100 ea 11/10/21 (Advocate Pen Needle) dulaglutide 0.75 mg/0.5 mL 0.75 mg (0.5 mL) subcut QWEEK #6 mL 12/05/21 subcutaneous pen injector (Trulicity) loratadine 10 mg capsule 10 mg PO DAILY #10 caps 12/28/21 blood sugar diagnostic (FreeStyle #300 strips 01/30/22 Test strips) fluticasone propionate 50 2 spray NS DAILY #1 g 01/30/22 mcg/actuation nasal spray,suspension bebtelovimab 175 mg/2 mL (87.5 175 mg (2 mL) IV ONCE #2 mL 02/04/22 mg/mL) intravenous solution (EUA) bupropion HCl 150 mg tablet,12 hr 150 mg PO BID #180 tabs 03/02/22 sustained-release clotrimazole-betamethasone 1 1 applic topical BID #45 grams 03/04/22 %-0.05 % topical cream losartan 50 mg tablet 100 mg PO DAILY #180 tabs 03/25/22 sildenafil 100 mg tablet 100 mg PO DAILY PRN sexual 04/01/22 activity #5 tabs ezetimibe 10 mg tablet 10 mg PO DAILY #90 tabs 04/17/22 diclofenac sodium 1 % topical gel 2 g topical QID #100 grams 04/24/22 Allergies Allergy/AdvReac Type Severity Reaction Status Date / Time venom-honey bee Allergy Severe ANAPHYLAXSI Verified 03/27/22 03:04 [bee venom (honey bee)] S Sulfa (Sulfonamide Allergy Unknown unknown Verified 03/27/22 03:04 Antibiotics) leflunomide [From Arava] AdvReac Intermediate DIARRHEA Verified 03/27/22 03:04 metformin AdvReac Intermediate diarrhea Verified 03/27/22 03:04 General Stated Complaint: Orthopedic STAR: 4 Review of Systems All systems reviewed & are unremarkable except as noted in HPI and below PFSH All Active Problems (Updated 04/27/22 @ 00:08 by GEORGE GIVENS) Effusion of knee joint (Acute) Hypoxia (Acute) Screening for colon cancer (Acute) Pneumonia (Acute) Back pain (Acute) Cyst (Acute) Leg pain, right (Acute) Diverticulitis (Chronic) Anaphylaxis due to hymenoptera venom (Acute) Acute exacerbation of chronic obstructive pulmonary disease (Acute) Rash (Acute) Mallet deformity of left ring finger (Acute 11/30/20) with avulsion fracture Otitis media (Acute) Serrated adenoma of colon (Acute ~07/2020) Tubular adenoma (Acute ~07/2020) tubular adenoma x7, repeat colo in 1 year Adenomatous polyps (Acute) Diverticula of colon (Acute) Degenerative lumbar spinal stenosis (Acute) Bilateral hip joint arthritis (Acute) Arthritis of knee, right (Acute) Chronic knee pain (Acute) Acute bilateral low back pain (Acute) Acute hyperglycemia (Acute) Fatigue (Acute) Bradycardia (Acute) Flank pain (Acute) RCA occlusion (Acute) 05/25/19 [facility] [place] elevated myocardial infarction (Acute) Chronic obstructive lung disease (Chronic) pulmonary fibrosis on chest xray ongoing tobacco use add back budesonide nebs to see if we can improve cough Gastroesophageal reflux disease (Chronic) Hyperlipidemia (Chronic 05/05/13) Depressive disorder (Chronic) Diverticulitis of colon (Acute) History of incisional hernia repair (Acute) History of knee surgery (Acute) Lipoma (Acute) Erectile dysfunction (Chronic) Tubular adenoma (Acute) 11/20 COLONOSCOPY: ONE TUBULOVILLOUS ADENOMA & TWO TUBULAR ADENOMAS. 05/22/13: DR. Mateusz COPELAND:TUBULAR ADENOMAS 11/13/16: Dr Jian Crump: tublular and tubulovillous adenomas Smoker (Acute) Polyp of colon (Acute) 11/20 COLONOSCOPY: ONE TUBULOVILLOUS ADENOMA & TWO TUBULAR ADENOMAS. 05/22/13: DR. Mateusz COPELAND:TUBULAR ADENOMAS 11/13/16: Dr Jian Crump: tublular and tubulovillous adenomas Palpitations (Acute 11/04/12) multiple PVCs, bradycardia (2013) ([facility], [place] Abraham, echo normal LVEF and stress test neg ischemia) Male erectile disorder (Acute 08/29/13) Kidney stone (Acute 09/14/14) recurrent x3 on left [facility] [place]rology 10/12/16-[facility]; F/U Dr. Fair Esophageal reflux (Acute) Bilateral kidney stones (Acute 10/27/16) Medical History BPH loc w urin obs/LUTS COPD (chronic obstructive pulmonary disease) CVA (cerebral vascular accident) (11/21/17) Diabetes mellitus (05/05/13) check A1c and creat Hypertension same meds, good BP here today Myocardial infarction Surgical History Colonoscopy - MAC (05/16/13) Colonoscopy - MAC (11/13/16) Colostomy (~2006) TEMP W/ REVISION Excision, Lipoma (05/19/16) posterior neck Hernia Repair, Incisional KNEE REPAIR RIGHT RESECTION ANGIOFIBROMA;RIGHT FOOT 02/04/18 Stented coronary artery 05/25/19 [facility]; s/p stent of old stent-KB Family History Mother Essential hypertension Heart disease Stroke Father Stroke Brother Heart disease Family History Diabetes Heart disease Cancer Brother No problems noted. Brother No problems noted. Sister No problems noted. Sister Alcohol abuse Social History Smoking/Tobacco Use Status: Current every day Tobacco Type: cigarettes Tobacco: How many years used: 60 Quit status: has quit before Second Hand Exposure: Yes Smoking risk assessment performed?: Yes Alcohol Intake: former Drug use: Never Substance use type: does not use Household members: family Housing: house Communication Needs: None Do you need help understanding health information?: Rarely Pets and animals: Yes Pets and animals: cat(s) Sexually active: No Current gender identity: male What is your relationship status?: How often do you talk on the phone with friends or family?: three or more times per week How often do you get together with friends or relatives?: twice per week How often do you attend alevism or congregational services?: decline to answer Do you belong to any clubs or organized social groups?: no Panel score (0-1 are the most socially isolated patients): 1 What type of physical activity do you participate in: walking Duration: < 15 minutes/day Frequency: 1-2 times per week Monika/Jain: None Special monika needs: No Seatbelt use: sometimes Helmet use: No Drive intox or ride w/intox hazardous materials tanker driver: No Do you feel safe at home: Yes Do you feel safe in your relationship?: Yes Additional Social history: Lives with roommate in trailer [facility]. Retired [employer]. 4 adult kids in the area. Exam Const General: cooperative, comfortable and no acute distress Eyes Sclera: sclerae normal Resp Effort & Inspection: normal respiratory effort Cardio Rate: regular rate Skin General skin exam: no rashes or lesions noted Neuro General: patient alert Extrem Other: right knee with swelling and tenderness, no redness no calf swelling or tenderness n/v intact to bilateral lower extremities Course Vital Signs Vital signs: Vital Signs Temperature 36.3 C L 04/24/22 11:26 Pulse 70 04/24/22 11:26 Respiratory Rate 18 04/24/22 11:26 Blood Pressure 101/60 04/24/22 11:26 Pulse Oximetry 94 04/24/22 11:26 Temperature 36.3 C L 04/24/22 11:26 Temperature Source Temporal Artery Scan 04/24/22 11:26 Pulse 70 04/24/22 11:26 Respiratory Rate 18 04/24/22 11:26 Respiratory Effort Non-Labored 04/24/22 11:30 Blood Pressure 101/60 04/24/22 11:26 Blood Pressure Position Sitting 04/24/22 11:26 Pulse Oximetry 94 04/24/22 11:26 Oxygen Delivery Method Room Air 04/24/22 11:26 Oxygen Flow Rate 0 04/24/22 11:26 Pain Level 6 04/24/22 11:26
== END 2022-04-24 12:59 | disposition home or self-care (01) ==
PROVIDERS: Emergency Provider Physician Assistant; PCP Family Medicine
DX: M25.461 Effusion, right knee (principal); I10 Essential (primary) hypertension; E11.9 Type 2 diabetes mellitus without complications; J44.9 Chronic obstructive pulmonary disease, unspecified; I25.2 Old myocardial infarction; F17.210 Nicotine dependence, cigarettes, uncomplicated; Z86.73 Personal history of transient ischemic attack (TIA), and cerebral infarction without residual deficits; Z79.51 Long term (current) use of inhaled steroids; Z79.82 Long term (current) use of aspirin; Z79.4 Long term (current) use of insulin
CPT/HCPCS: 73562; 99283; 99282

== ENCOUNTER → 2022-05-26 11:11 | Outpatient (BNVA) | payer MEDICARE, SELFPAY | PROVIDERS: PCP Family Medicine; Referring Provider Family Medicine; Visit Provider Student in an Organized Health Care Education/Training Program | DX: M17.11 Unilateral primary osteoarthritis, right knee (principal) | CPT/HCPCS: 20610; 99213; J1030 ==

== ENCOUNTER 2022-07-14 03:06 | Outpatient (RCR) | payer MEDICARE, SELFPAY ==
[2022-07-14] VITALS (9 sets, daily range): BP systolic 138–184; BP diastolic 77–92; PULSE 55–66; RESP 17–20; TEMP 36.3–36.6; O2SAT 94–98
[2022-07-14] MEDS: diphenhydrAMINE 25 MG CAP (07:13)
[2022-07-14] MEDS: Acetaminophen 325 MG TAB 650 MG PO (07:13)
[2022-07-14] MEDS: methylPREDNISolone SUCC 125 MG VIAL (07:14)
[2022-07-14] MEDS: Normal Saline Flush 10 ML SYR IVP (07:18)
[2022-07-14] MEDS: riTUXimab-PVVR 1,000 MG in Normal Saline 150 ML 62.5 MG IVPB (07:40)
== END 2022-08-12 23:59 | disposition home or self-care (01) ==
LOC: INF 03:06
PROVIDERS: PCP Family Medicine; Visit Provider Nurse Practitioner Acute Care
DX: M06.9 Rheumatoid arthritis, unspecified (principal)
CPT/HCPCS: 96365; 96366; J2930; Q5119

== ENCOUNTER → 2022-08-18 14:16 | Outpatient (BNVA) | payer MEDICARE, SELFPAY | PROVIDERS: PCP Family Medicine; Referring Provider Family Medicine; Visit Provider Urology | DX: N40.1 Benign prostatic hyperplasia with lower urinary tract symptoms (principal); R39.89 Other symptoms and signs involving the genitourinary system; N52.9 Male erectile dysfunction, unspecified | CPT/HCPCS: 99213 ==

== ENCOUNTER 2022-08-25 13:31 | Emergency (ER) | payer MEDICARE, SELFPAY ==
[2022-08-25 13:41] VITALS: BP 112/70; PULSE 64; RESP 18; TEMP 36.6; O2SAT 97
--- NOTE | 2022-08-25 13:56 | W.ED.GENAD ---
Discharge Plan Disposition Patient Disposition: Home Condition: Stable Discharge Details Clinical Impression: Abscess of external ear Primary Care Provider: Mike Burns ED Provider: Leona De Santiago Home Meds and New Rx's Prescriptions: New cephalexin 500 mg capsule 500 mg PO Q6H 7 Days Qty: 28 0RF Continued aspirin 81 mg tablet,chewable 81 mg PO DAILY (DME) lancets [FreeStyle Lancets] 28 gauge misc 1 ea Intradermal DAILY Qty: 300 4RF Rx Instructions: test TID amlodipine 5 mg tablet 5 mg PO BID Qty: 180 3RF atorvastatin 80 mg tablet 80 mg PO QHS Qty: 90 3RF clopidogrel [Plavix] 75 mg tablet 75 mg PO DAILY Qty: 90 4RF Jardiance 25 mg tablet 25 mg PO DAILY Qty: 90 3RF gabapentin 300 mg capsule See Rx Instructions .ROUTE .COMPLEX Qty: 90 5RF Dose Instruction: TAKE ONE CAPSULE BY MOUTH THREE TIMES A DAY Rx Instructions: TAKE ONE CAPSULE BY MOUTH THREE TIMES A DAY nitroglycerin [Nitrostat] 0.4 mg tablet, sublingual 0.4 mg Sublingual PRN Qty: 25 11RF Rx Instructions: 1 TAB SL PRN pantoprazole 40 mg tablet,delayed release (DR/EC) 40 mg PO DAILY Qty: 90 3RF Rx Instructions: TAKE 6 HOURS APART FROM YOUR PLAVIX losartan 50 mg tablet 100 mg PO DAILY Qty: 180 3RF insulin glargine 100 unit/mL (3 mL) insulin pen 47 unit SC HS Qty: 45 3RF sildenafil 100 mg tablet 100 mg PO DAILY PRN (Reason: sexual activity) Qty: 5 12RF Rx Instructions: administer 30 minutes to 4 hours before activity tamsulosin 0.4 mg capsule 0.4 mg PO DAILY Qty: 30 12RF clotrimazole-betamethasone 1-0.05 % cream 1 applic topical BID Qty: 45 0RF Rx Instructions: Apply pea-sized amount twice daily to penile skin as directed. 2 weeks only unless directed otherwise (DME) Space Chamber Plus 1 EACH spacer 1 ea Miscellaneous PRN Qty: 1 infliximab [Remicade] 100 MG recon soln 1,000 mg IV .[id number] Label Comments: 05/31/15 Jacqui at [facility] Rheumatology reports: 1000mg IV infusion every 6 months. Done at [facility]. DL 03/05/17 q 4 months. si budesonide 0.5 mg/2 mL suspension for nebulization 0.5 mg Inhalation BID Qty: 60 11RF (DME) pen needle, diabetic [Advocate Pen Needle] 33 gauge x 5/32 needle See Rx Instructions .ROUTE .MEDSUPPLY Qty: 100 3RF Rx Instructions: inject once/day Trulicity 0.75 mg/0.5 mL pen injector 0.75 mg SC QWEEK Qty: 6 3RF (DME) FreeStyle Test Strip 1 strip Miscellaneous DAILY Qty: 300 4RF Rx Instructions: test three times/day fluticasone propionate 50 mcg/actuation spray,suspension 2 spray NS DAILY Qty: 1 8RF bebtelovimab 175 mg/2 mL (87.5 mg/mL) solution 175 mg IV ONCE Qty: 2 0RF Rx Instructions: as a single dose bupropion HCl 150 mg tablet sustained-release 12 hr 150 mg PO BID Qty: 180 3RF ezetimibe 10 mg tablet 10 mg PO DAILY Qty: 90 4RF acetaminophen 650 MG tablet extended release 650 mg PO Q8H PRN (Reason: Pain) Qty: 20 0RF epinephrine 0.3 mg/0.3 mL auto-injector 0.3 mg IM ONCE Qty: 2 0RF Rx Instructions: as a single dose; may repeat once ondansetron HCl 4 mg tablet 1 mg PO Q8H PRN benzonatate 100 mg capsule 1 cap PO DAILY doxycycline hyclate 100 mg tablet 1 tab BID cyclosporine [Restasis] 0.05 % dropperette 1 drp BID Label Comments: INSTILL 1 DROP IN EACH EYE TWO TIMES A DAY ondansetron HCl [Zofran] 4 mg tablet 4 mg PO Q8H PRNQty: 10 0RF loratadine 10 mg capsule 10 mg PO DAILY Qty: 10 0RF diclofenac sodium 1 % gel 2 g topical QID Qty: 100 0RF Rx Instructions: apply to single elbow, wrist or hand; for hand includes palm/fingers/back of hand No Action albuterol sulfate [Ventolin HFA] 90 mcg/actuation HFA aerosol inhaler 2 inh INHALATION Q6H PRN (Reason: bronchospasm) Qty: 8.5 3RF Discharge Instructions Instructions: Abscess (ED) Additional Instructions: Warm compresses Take antibiotic as prescribed Yogurt daily while on antibiotic Return for spreading redness, fever, worsening pain Recheck of primary care physician in 48 to 72 hours Referrals: Mike Burns MD [Primary Care Provider] - Discharge Data Discharge Date/Time-TO BE ENTERED AT DEPARTURE: 08/25/22 14:21 Medical Decision Making 77-year-old gentleman with history of diabetes, blood sugar stable just prior to arrival presents with reports of redness to ear for the past several days with history of similar symptoms in the past, mild discomfort with drainage No fluctuance, mild swelling and erythema noted Keflex a few supply abdomen, no indication for incision and drainage at this time in the absence of fluctuance and drainage Warm compresses encouraged Recheck in 24 to 48 hours recommended Return precautions reviewed stable patient expressed understanding Medical Records Medical records reviewed: Yes I reviewed the patient's medical records. Sign Out No HPI General Date/Time Provider Initiated Documentation: 08/25/22 13:51. Information obtained by: patient. HPI Narrative: 77-year-old gentleman with history of diabetes presents with report of swelling, pain, and drainage from his left ear for the past several days. Blood sugar was 160 and prior to arrival. Denies any known trauma to the affected area or change in hearing. Denies any fever or chills. Related Data Home Medications Medication Instructions Recorded Confirmed inhalational spacing device (Space ##1 05/27/15 08/27/22 Chamber Plus) infliximab 100 mg intravenous 1,000 mg IV .[id number] 05/31/15 08/27/22 solution (Remicade) acetaminophen 650 mg 650 mg PO Q8H PRN Pain ##20 04/30/17 08/27/22 tablet,extended release budesonide 0.5 mg/2 mL suspension 0.5 mg (2 mL) inhalation BID #60 mL 11/08/20 08/27/22 for nebulization lancets 28 gauge (FreeStyle #300 ea 11/22/20 08/27/22 Lancets) epinephrine 0.3 mg/0.3 mL 0.3 mg (0.3 mL) IM ONCE #2 ea 03/12/21 08/27/22 injection, auto-injector ondansetron HCl 4 mg tablet 4 mg PO Q8H PRN #10 tabs 05/02/21 08/27/22 (Zofran) aspirin 81 mg chewable tablet 81 mg PO DAILY 05/27/21 08/27/22 insulin glargine 100 unit/mL (3 47 unit (0.47 mL) subcut HS #45 mL 08/29/21 08/27/22 mL) subcutaneous pen pen needle, diabetic 33 gauge x #100 ea 11/10/21 08/27/22 5/32 (Advocate Pen Needle) dulaglutide 0.75 mg/0.5 mL 0.75 mg (0.5 mL) subcut QWEEK #6 mL 12/05/21 08/27/22 subcutaneous pen injector (Trulicity) loratadine 10 mg capsule 10 mg PO DAILY #10 caps 12/28/21 08/27/22 blood sugar diagnostic (FreeStyle #300 strips 01/30/22 08/27/22 Test strips) fluticasone propionate 50 2 spray NS DAILY #1 g 01/30/22 08/27/22 mcg/actuation nasal spray,suspension bebtelovimab 175 mg/2 mL (87.5 175 mg (2 mL) IV ONCE #2 mL 02/04/22 08/27/22 mg/mL) intravenous solution (EUA) bupropion HCl 150 mg tablet,12 hr 150 mg PO BID #180 tabs 03/02/22 08/27/22 sustained-release clotrimazole-betamethasone 1 1 applic topical BID #45 grams 03/04/22 08/27/22 %-0.05 % topical cream benzonatate 100 mg capsule 1 cap PO DAILY 03/19/22 08/27/22 cyclosporine 0.05 % eye drops in a 1 drp BID 03/19/22 08/27/22 dropperette (Restasis) doxycycline hyclate 100 mg tablet 1 tab BID 03/19/22 08/27/22 ondansetron HCl 4 mg tablet 1 mg PO Q8H PRN 03/19/22 08/27/22 losartan 50 mg tablet 100 mg PO DAILY #180 tabs 03/25/22 08/27/22 ezetimibe 10 mg tablet 10 mg PO DAILY #90 tabs 04/17/22 08/27/22 diclofenac sodium 1 % topical gel 2 g topical QID #100 grams 04/24/22 08/27/22 amlodipine 5 mg tablet 5 mg PO BID #180 tabs 05/28/22 08/27/22 atorvastatin 80 mg tablet 80 mg PO QHS #90 tabs 05/28/22 08/27/22 clopidogrel 75 mg tablet (Plavix) 75 mg PO DAILY #90 tabs 05/28/22 08/27/22 empagliflozin 25 mg tablet 25 mg PO DAILY #90 tabs 05/28/22 08/27/22 (Jardiance) gabapentin 300 mg capsule See Rx Instructions .Route 05/28/22 08/27/22 .COMPLEX #90 caps nitroglycerin 0.4 mg sublingual 0.4 mg sublingual PRN #25 tab-caps 05/28/22 08/27/22 tablet (Nitrostat) pantoprazole 40 mg tablet,delayed 40 mg PO DAILY #90 tabs 05/28/22 08/27/22 release sildenafil 100 mg tablet 100 mg PO DAILY PRN sexual 08/18/22 08/27/22 activity #5 tabs tamsulosin 0.4 mg capsule 0.4 mg PO DAILY #30 caps 08/18/22 08/27/22 cephalexin 500 mg capsule 500 mg PO Q6H 7 days #28 caps 08/25/22 08/27/22 albuterol sulfate 90 mcg/actuation 2 inh inhalation Q6H PRN 08/27/22 08/27/22 aerosol inhaler (Ventolin HFA) bronchospasm #8.5 grams Previous Rx's Medication Instructions Recorded acetaminophen 650 mg 650 mg PO Q8H PRN Pain ##20 04/30/17 tablet,extended release budesonide 0.5 mg/2 mL suspension 0.5 mg (2 mL) inhalation BID #60 mL 11/08/20 for nebulization lancets 28 gauge (FreeStyle #300 ea 11/22/20 Lancets) epinephrine 0.3 mg/0.3 mL 0.3 mg (0.3 mL) IM ONCE #2 ea 03/12/21 injection, auto-injector ondansetron HCl 4 mg tablet 4 mg PO Q8H PRN #10 tabs 05/02/21 (Zofran) insulin glargine 100 unit/mL (3 47 unit (0.47 mL) subcut HS #45 mL 08/29/21 mL) subcutaneous pen pen needle, diabetic 33 gauge x #100 ea 11/10/21 (Advocate Pen Needle) dulaglutide 0.75 mg/0.5 mL 0.75 mg (0.5 mL) subcut QWEEK #6 mL 12/05/21 subcutaneous pen injector (Trulicity) loratadine 10 mg capsule 10 mg PO DAILY #10 caps 12/28/21 blood sugar diagnostic (FreeStyle #300 strips 01/30/22 Test strips) fluticasone propionate 50 2 spray NS DAILY #1 g 01/30/22 mcg/actuation nasal spray,suspension bebtelovimab 175 mg/2 mL (87.5 175 mg (2 mL) IV ONCE #2 mL 02/04/22 mg/mL) intravenous solution (EUA) bupropion HCl 150 mg tablet,12 hr 150 mg PO BID #180 tabs 03/02/22 sustained-release clotrimazole-betamethasone 1 1 applic topical BID #45 grams 03/04/22 %-0.05 % topical cream losartan 50 mg tablet 100 mg PO DAILY #180 tabs 03/25/22 ezetimibe 10 mg tablet 10 mg PO DAILY #90 tabs 04/17/22 diclofenac sodium 1 % topical gel 2 g topical QID #100 grams 04/24/22 amlodipine 5 mg tablet 5 mg PO BID #180 tabs 05/28/22 atorvastatin 80 mg tablet 80 mg PO QHS #90 tabs 05/28/22 clopidogrel 75 mg tablet (Plavix) 75 mg PO DAILY #90 tabs 05/28/22 empagliflozin 25 mg tablet 25 mg PO DAILY #90 tabs 05/28/22 (Jardiance) gabapentin 300 mg capsule See Rx Instructions .Route 05/28/22 .COMPLEX #90 caps nitroglycerin 0.4 mg sublingual 0.4 mg sublingual PRN #25 tab-caps 05/28/22 tablet (Nitrostat) pantoprazole 40 mg tablet,delayed 40 mg PO DAILY #90 tabs 05/28/22 release sildenafil 100 mg tablet 100 mg PO DAILY PRN sexual 08/18/22 activity #5 tabs tamsulosin 0.4 mg capsule 0.4 mg PO DAILY #30 caps 08/18/22 cephalexin 500 mg capsule 500 mg PO Q6H 7 days #28 caps 08/25/22 albuterol sulfate 90 mcg/actuation 2 inh inhalation Q6H PRN 08/27/22 aerosol inhaler (Ventolin HFA) bronchospasm #8.5 grams Allergies Allergy/AdvReac Type Severity Reaction Status Date / Time venom-honey bee Allergy Severe ANAPHYLAXSI Verified 08/25/22 13:47 [bee venom (honey bee)] S Sulfa (Sulfonamide Allergy Unknown unknown Verified 08/25/22 13:47 Antibiotics) leflunomide [From Arava] AdvReac Intermediate DIARRHEA Verified 08/25/22 13:47 metformin AdvReac Intermediate diarrhea Verified 08/25/22 13:47 General Stated Complaint: EarProblem STAR: 4 Review of Systems All systems reviewed & are unremarkable except as noted in HPI and below PFSH All Active Problems (Updated 08/28/22 @ 07:33 by Mike Burns MD) Cellulitis of ear (Acute) Chronic obstructive lung disease (Chronic) pulmonary fibrosis on chest xray ongoing tobacco use add back budesonide nebs to see if we can improve cough Diabetes mellitus (Chronic 05/05/13) check A1c and creat Gastroesophageal reflux disease (Chronic) Hyperlipidemia (Chronic 05/05/13) Kidney stone (Acute 09/14/14) recurrent x3 on left [facility] Urology 10/12/16-[facility]; F/U Dr. Fair Male erectile disorder (Acute 08/29/13) Palpitations (Acute 11/04/12) multiple PVCs, bradycardia (2013) ([facility], Dr Abraham, echo normal LVEF and stress test neg ischemia) Rheumatoid arthritis (Chronic 05/05/13) [facility], Dr Leon Smoker (Acute) Tubular adenoma (Acute) 11/20 COLONOSCOPY: ONE TUBULOVILLOUS ADENOMA & TWO TUBULAR ADENOMAS. 05/22/13: DR. 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) Medical History (Updated 08/28/22 @ 07:33 by Mike Burns MD) Acute kidney injury ASCVD (arteriosclerotic cardiovascular disease) (05/05/13) 2 NEW STENTS 04/22 H/O IMI; angioplasty and stent; [place] , 02/11; CVA/TIA BPH loc w urin obs/LUTS COPD (chronic obstructive pulmonary disease) CVA (cerebral vascular accident) (11/21/17) Hypertension same meds, good BP here today Myocardial infarction Sepsis Surgical History (Updated 07/31/22 @ 13:02 by Sarah Fitzgerald MD) Colonoscopy - MAC (05/16/13) Colonoscopy - MAC (11/13/16) Colostomy (~2006) TEMP W/ REVISION Excision, Lipoma (05/19/16) posterior neck Hernia Repair, Incisional History of incisional hernia repair History of knee surgery KNEE REPAIR RIGHT RESECTION ANGIOFIBROMA;RIGHT FOOT 02/04/18 Stented coronary artery 05/25/19 [facility]; s/p stent of old stent-KB Family History Mother Essential hypertension Heart disease Stroke Father Stroke Brother Heart disease Family History Diabetes Heart disease Cancer Brother No problems noted. Brother No problems noted. Sister No problems noted. Sister Alcohol abuse Social History Smoking/Tobacco Use Status: Current every day Tobacco Type: cigarettes Tobacco: How many years used: 60 Quit status: has quit before Second Hand Exposure: Yes Smoking risk assessment performed?: Yes Alcohol Intake: former Drug use: Never Substance use type: does not use Household members: family Housing: house Communication Needs: None Do you need help understanding health information?: Rarely Pets and animals: Yes Pets and animals: cat(s) Sexually active: No Current gender identity: male What is your relationship status?: How often do you talk on the phone with friends or family?: three or more times per week How often do you get together with friends or relatives?: twice per week How often do you attend congregation or confucianist services?: decline to answer Do you belong to any clubs or organized social groups?: no Panel score (0-1 are the most socially isolated patients): 1 What type of physical activity do you participate in: walking Duration: < 15 minutes/day Frequency: 1-2 times per week Monika/Mandaen: None Special monika needs: No Seatbelt use: sometimes Helmet use: No Drive intox or ride w/intox lease purchase driver: No Do you feel safe at home: Yes Do you feel safe in your relationship?: Yes Additional Social history: Lives with roommate in trailer at [facility]. Retired [employer]. 4 adult kids in the area. Exam Const General: cooperative, comfortable and no acute distress [facility] Head images: 1. Swelling, scant erythema, drainage Other: No fluctuance Eyes Sclera: sclerae normal Other: no facial swelling, EAC patent, no TM involvement, COL intact no mastoid tenderness Resp Effort & Inspection: normal respiratory effort Cardio Rate: regular rate Rhythm: regular rhythm Skin General skin exam: no rashes or lesions noted Neuro General: patient alert Cognition: normal cognition Speech: speech normal Course Vital Signs Vital signs: Vital Signs Temperature 36.6 C 08/25/22 13:41 Pulse 64 08/25/22 13:41 Respiratory Rate 18 08/25/22 13:41 Blood Pressure 112/70 08/25/22 13:41 Pulse Oximetry 97 08/25/22 13:41 Temperature 36.6 C 08/25/22 13:41 Temperature Source Oral 08/25/22 13:41 Pulse 64 08/25/22 13:41 Respiratory Rate 18 08/25/22 13:41 Respiratory Effort Non-Labored 08/25/22 13:46 Blood Pressure 112/70 08/25/22 13:41 Blood Pressure Position Sitting 08/25/22 13:41 Pulse Oximetry 97 08/25/22 13:41 Oxygen Delivery Method Room Air 08/25/22 13:41 Oxygen Flow Rate 0 08/25/22 13:41 Pain Level 6 08/25/22 13:48
== END 2022-08-25 14:21 | disposition home or self-care (01) ==
PROVIDERS: Emergency Provider Physician Assistant; PCP Family Medicine
DX: H60.02 Abscess of left external ear (principal)
CPT/HCPCS: 99283

== ENCOUNTER 2022-09-02 11:15 | Outpatient (CLI) | payer MEDICARE, SELFPAY ==
[2022-09-02 11:18] LABS: ESR 12 mm/hr (0-20)
[2022-09-02 11:19] LABS: Abs Immature Grans 0.05 10^3/uL (0.0-0.06); Absolute Basophil Count 0.06 10^3/uL (0.0-0.2); Absolute Eosinophil Count 0.36 10^3/uL (0.0-0.7); Absolute Lymphocyte Count 1.47 10^3/uL (1.2-3.4); Absolute Monocyte Count 1.04 10^3/uL (0.1-0.8); Absolute Neutrophil Count 5.56 10^3/uL (1.2-6.7); Basophils % 0.7; Eosinophils % 4.2; HCT 48.9 % (40.0-50.0); HGB 16.4 g/dL (13.5-17.5); Immature Grans % 0.6; Lymphocytes % 17.2; MCH 31.7 pg (27.0-33.0); MCHC 33.5 % (32.0-36.0); MCV 95 fL (80-95); MPV 10.9 fL (8.0-11.0); Monocytes % 12.2; Neutrophils % 65.1; Platelet Count 225 10^3/uL (130-400); RBC 5.17 10^6/uL (4.36-5.78); RDW-SD 48.9 fL; WBC 8.54 10^3/uL (4.4-10.8)
[2022-09-02 12:03] LABS: ALT 29 U/L (16-63); AST 19 U/L (15-37); Albumin 3.3 g/dL (3.4-5.0); Alkaline Phosphatase 96 U/L (46-116); Anion Gap 6.1 mmol/L (3-11); BUN 27 mg/dL (7-18); Bilirubin, Total 0.5 mg/dL (0.2-1.0); C-Reactive Protein 0.77 mg/dL (0.0-0.3); CO2 28.9 mmol/L (21.0-32.0); Calcium 8.9 mg/dL (8.5-10.1); Chloride 105 mmol/L (98-107); Estimated GFR 78.49 (mL/min/1.73m2); Glucose 118 mg/dL (74-106); Potassium 4.2 mmol/L (3.5-5.1); Sodium 140 mmol/L (136-145)
[2022-09-03 10:18] LABS: IgG 722 mg/dL (610-1616)
== END 2022-09-02 11:16 | disposition home or self-care (01) ==
LOC: LBO 11:16
PROVIDERS: PCP Family Medicine; Visit Provider Internal Medicine Rheumatology
DX: M05.79 Rheumatoid arthritis with rheumatoid factor of multiple sites without organ or systems involvement (principal); Z79.899 Other long term (current) drug therapy
CPT/HCPCS: 36415; 80053; 82784; 85652; 85025; 86140

== ENCOUNTER → 2022-09-25 10:48 | Outpatient (BNVA) | payer MEDICARE, SELFPAY | PROVIDERS: PCP Family Medicine; Referring Provider Family Medicine; Visit Provider Surgery | DX: Z12.11 Encounter for screening for malignant neoplasm of colon (principal); D12.6 Benign neoplasm of colon, unspecified | CPT/HCPCS: 99213 ==

== ENCOUNTER 2022-10-05 17:48 | Inpatient (IN) | payer MEDICARE, SELFPAY ==
[2022-10-05] VITALS (78 sets, daily range): BP systolic 93–137; BP diastolic 43–112; PULSE 76–120; RESP 16–37; TEMP 37.7; O2SAT 87–99
--- NOTE | 2022-10-05 17:45 | RT.EKG_ITS ---
APPROVED REPORT Exam: Resting ECG Reason for Exam: chest pain Patient Location: E HR:107 bpm ECG Measurements Heart Rate 107 AXIS OH 216 P 10 QRSd 97 QRS -48 QT 327 T 52 QTc 435 Conclusion Rate 107, sinus tachycardia, no significant ST elevations or depressions. No evidence of STEMI.
[2022-10-05] MEDS: Aspirin 81 MG CHEW 324 MG CH (18:07)
[2022-10-05 18:13] LABS: Abs Immature Grans 0.09 10^3/uL (0.0-0.06); Absolute Basophil Count 0.08 10^3/uL (0.0-0.2); Absolute Eosinophil Count 0.15 10^3/uL (0.0-0.7); Absolute Lymphocyte Count 0.61 10^3/uL (1.2-3.4); Basophils % 0.5; Eosinophils % 0.9; HCT 50.9 % (40.0-50.0); HGB 16.9 g/dL (13.5-17.5); Immature Grans % 0.5; Lymphocytes % 3.6; MCH 31.5 pg (27.0-33.0); MCHC 33.2 % (32.0-36.0); MCV 95 fL (80-95); MPV 11.3 fL (8.0-11.0); Monocytes % 6.5; Platelet Count 217 10^3/uL (130-400); RBC 5.36 10^6/uL (4.36-5.78); RDW 14.5 % (11.8-14.1); RDW-SD 50.5 fL; WBC 16.83 10^3/uL (4.4-10.8)
--- NOTE | 2022-10-05 18:13 | W.ED.GENAD ---
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 more times per week How often do you get together with friends or relatives?: twice per week How often do you attend worship or taoism services?: decline to answer Do you belong to any clubs or organized social groups?: no Panel score (0-1 are the most socially isolated patients): 1 What type of physical activity do you participate in: walking Duration: < 15 minutes/day Frequency: 1-2 times per week Monika/Baptism: None Special monika needs: No Seatbelt use: sometimes Helmet use: No Drive intox or ride w/intox 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 4 adult kids in the area. Exam Narrative Exam Narrative: 1.Const: Well-nourished, Well-developed, appearing stated age 2.Eyes: PERRL, no conjunctival injection, and symmetrical lids. 3.ENT: Atraumatic external nose and ears. Moist MM. Neck: Symmetric, trachea midline, No thyromegaly. 4.CVS: +S1/S2, No murmurs or gallops. Peripheral pulses 2+ and equal in all extremities. Brisk capillary refill in all extremities. 5.RESP: Unlabored respiratory effort. Clear to auscultation bilaterally. No wheezes rales or rhonchi 6.GI: Soft, Nontender/Nondistended, No hepatosplenomegaly. No guarding or rebound. 7.MSK: Normocephalic/Atraumatic, Extremities w/o deformity or ttp No cyanosis or clubbing, Normal movement of all extremities, right paraspinal C-spine tenderness. Minimal midline tenderness. No weakness of the upper extremities. Normal sensation in the upper extremities. 8.Skin: Warm, Dry. No rashes or lesions. 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 Sensation grossly intact, no focal neurologic deficits. 10.Psych: (AAO) x3. Appropriate mood and affect Course Vital Signs Vital signs: Vital Signs Temperature 37.7 C H 10/05/22 17:52 Pulse 120 H 10/05/22 17:52 Respiratory Rate 21 10/05/22 17:52 Blood Pressure 137/112 H 10/05/22 17:52 Pulse Oximetry 91 L 10/05/22 17:52 Temperature 37.7 C H 10/05/22 17:52 Temperature Source Temporal Artery Scan 10/05/22 17:52 Pulse 120 H 10/05/22 17:52 Respiratory Rate 21 10/05/22 17:52 Respiratory Effort Labored 10/05/22 17:57 Blood Pressure 137/112 H 10/05/22 17:52 Blood Pressure Position Sitting 10/05/22 17:52 Pulse Oximetry 91 L 10/05/22 17:52 Oxygen Delivery Method Room Air 10/05/22 17:52 Oxygen Flow Rate 0 10/05/22 17:52 POCUS Exam (ED) Limited Cardiac Exam DATE OF EXAM: 10/05/22 TIME OF EXAM: 19:10 PROVIDER THAT PERFORMED THE STUDY: Nghia Cabrera IS THIS A REPEAT EXAM DURING THIS ENCOUNTER: no REASON FOR EXAM: Chest pain VISUALIZED STRUCTURES: Left atrium, Left ventricle, Right ventricle and Interventricular septum VIEW OBTAINED: Parasternal long-axis PERTINENT FINDINGS/IMPRESSION: No apparent abnormalities DIFFERENTIAL DIAGNOSES: Ejection fraction appears to be around 50 to 55%. No significant wall motion abnormalities. Exam complete
[2022-10-05 18:25] LABS: Absolute Monocyte Count 1.09 10^3/uL (0.1-0.8); Absolute Neutrophil Count 14.81 10^3/uL (1.2-6.7)
[2022-10-05 18:27] LABS: INR 1.1 (0.9-1.1); Prothrombin Time 11.4 sec (9.3-11.0)
[2022-10-05 18:38] LABS: ALT 24 U/L (16-63); AST 18 U/L (15-37); Albumin 3.7 g/dL (3.4-5.0); Alkaline Phosphatase 95 U/L (46-116); Anion Gap 9.7 mmol/L (3-11); BUN 27 mg/dL (7-18); CO2 26.3 mmol/L (21.0-32.0); CREATININE 1.4 mg/dL (0.70-1.30); Calcium 9.3 mg/dL (8.5-10.1); Chloride 104 mmol/L (98-107); Estimated GFR 52.41 (mL/min/1.73m2); Glucose 148 mg/dL (74-106); Lipase 93 U/L (73-393); NT-proBNP 87 pg/mL (<300); Potassium 4.4 mmol/L (3.5-5.1); Sodium 140 mmol/L (136-145); Total Protein 7.1 g/dL (6.4-8.2); Troponin I < 50 ng/L (<or=60)
--- NOTE | 2022-10-05 18:45 | DI.CT_ITS ---
Exam(s) CT HEAD CERVICAL SPINE WO EXAM: CT HEAD CERVICAL SPINE WO CLINICAL HISTORY: fall, right neck pain. TECHNIQUE: Imaging Protocol: Axial computed tomography images with coronal and sagittal reformatted images were created and reviewed COMPARISON: CT CT HEAD CERVICAL SPINE WO from 03/19/2022 FINDINGS: BRAIN: There are no skull fractures nor fluid in the visualized paranasal sinuses. There is no evidence of intracranial hemorrhage, mass effect, or shift of midline structures. There are no extra-axial fluid collections. The ventricles are not enlarged or shifted and there is no blo od within the ventricular system nor within the basal cisterns. Periventricular hypodensity consistent with chronic small vessel disease. Also small lacunar infarct in the posterior left basal ganglia. CERVICAL SPINE: There is no evidence of fracture nor listhesis. No significant prevertebral soft tissue swelling. No significant disc space narrowing. Mild multilevel facet degenerative changes. There is no significant facet joint malalignment. No significant osseous lesions evident. IMPRESSION: No acute intracranial findings on this noninfused CT scan of the brain.Chronic small-vessel white mat ter ischemic changes. If clinically indicated follow-up MRI with diffusion imaging can be performed. No evidence of cervical spine fracture, malalignment, nor acute compromise of the cervical spinal can al. Degenerative facet changes. RADIATION DOSE DELIVERED: 1,478.67mGy.cm Total DLP DATA REPOSITORY: All CT scans at this facility are submitted to the National Radiology Data Registry (NRDR) Dose Index Registry (DIR) with the [employer] (ACR). RADIATION OPTIMIZATION: All CT scans at this facility use at least one of these dose optimization te chniques: automated exposure control; mA and/or kV adjustment per patient size (includes targeted exa ms where dose is matched to clinical indication); or iterative reconstruction.
--- NOTE | 2022-10-05 18:45 | DI.CT_ITS ---
Exam(s) CT CHEST PE CTA EXAM: CT CHEST PE CTA CLINICAL HISTORY: chest pain, sob, hx cardiac dz, r/o pe. TECHNIQUE: Imaging Protocol: CT angiography of the chest was performed using pulmonary embolus debra col. Multi planar reconstructions were performed. CONTRAST MATERIAL: Intravenous: Omnipaque 350 Contrast volume: 100 cc COMPARISON: CT CT CHEST PE CTA from 03/19/2022 FINDINGS: CHEST: PULMONARY ARTERIES: There are no intraluminal filling defects to suggest acute pulmonary emboli. LUNGS: Median chronic bilateral interstitial disease is again noted. Also multiple small bullae mariola uring up to 1.6 cm. There are few small nodular infiltrates in the right middle lobe, these ranging up to 1 cm size and there is some confluent infiltrate in the medial segment of the right middle lobe . Also small 4 millimeter subpleural nodule in the superior lingular segment of the left lung. This is unchanged from March 2022. There are no pleural effusions.. There are no pleural effusions. MEDIASTINUM: There is no hilar nor mediastinal adenopathy. Visualized thyroid unremarkable. CARDIAC: Heart size is upper normal. There is no pericardial effusion.Caliber of the thoracic aorta is within normal limits. There is no significant shift of the interventricular septum. PARTIALLY VISUALIZED UPPERMOST ABDOMEN: See abdominal CT report OSSEOUS: No significant osseous lesions.No fractures evident.. IMPRESSION: 1. No evidence of acute pulmonary emboli. No evidence of pulmonary infarction.No pleural effusions. 2. 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 There is also some in filtrate in the right middle lobe as well as 1 cm size nodular infiltrates in the right middle lobe w hich were not evident on the prior study of March 2022. Follow-up to resolution recommended 3. First read by [facility]. Final report called by myself to ER 10/06/2022 at 8:30 a.m. RADIATION DOSE DELIVERED: 1507.01 mGy.cm Total DLP DATA REPOSITORY: All CT scans at this facility are submitted to the National Radiology Data Registry (NRDR) Dose Index Registry (DIR) with the [employer] (ACR). RADIATION OPTIMIZATION: All CT scans at this facility use at least one of these dose optimization te chniques: automated exposure control; mA and/or kV adjustment per patient size (includes targeted exa ms where dose is matched to clinical indication); or iterative reconstruction.
--- NOTE | 2022-10-05 19:00 | DI.CT_ITS ---
Exam(s) CT ABDOMEN PELVIS WO EXAM: CT ABDOMEN PELVIS WO CLINICAL HISTORY: low back pain. TECHNIQUE: Imaging Protocol: Axial computed tomography images with coronal and sagittal reformatted images were created and reviewed CONTRAST MATERIAL: Intravenous: none Oral: None COMPARISON: CT CT LUMBAR SPINE RECONS from 10/05/2022 FINDINGS: VISUALIZED LUNG BASES: Advanced chronic interstitial disease both lungs. No pleural effusions.. ABDOMEN: There is no ascites. LIVER: There are no obvious focal hepatic lesions evident of this noninfused study. GALLBLADDER/BILIARY: Respiratory motion artifact makes evaluation of the gallbladder difficult becaus e of blurring. Gallbladder is not distended. No large calcified gallstones noted, realized limitati ons here. CBD difficult to evaluate because of motion artifact but not grossly enlarged. PANCREAS: No evidence of pancreatic mass nor dilatation of the pancreatic duct. SPLEEN: Spleen is not enlarged. No obvious intrasplenic lesions. ADRENALS: There are no significant adrenal masses. KIDNEYS:Small amount of Mayte nephric fluid on the left. Small benign sub cm exophytic cyst off the a nterior cortex of the left kidney and small sub cm benign cyst in the right kidney also noted. No so lid renal masses. No calculi. No hydronephrosis. No solid renal masses. No calculi nor hydronephro sis. . ABDOMINAL AORTA: There is an infrarenal aneurysm of the distal abdominal aorta just above the bifurca tion where it expands to a diameter of 2.8 cm. There is also an element of arterial megaly of the co mmon iliac arteries which are peripherally calcified. Largest diameter is in the distal left common iliac artery where there is a diameter 2.1 cm. LYMPH NODES: There is no retroperitoneal nor paraaortic adenopathy. ABDOMINAL WALL: Anterior abdominal wall hernia mesh seen bilaterally. No active hernias evident. No bowel obstruction. No free air. GI: There is no evidence of bowel obstruction, free air, nor abscess. PELVIS: LYMPH NODES: There is no intrapelvic nor inguinal adenopathy. GI: No evidence of appendicitis.Sigmoid diverticuli. No evidence of obvious acute diverticulitis. N o free fluid. URINARY BLADDER: No calculi nor obvious masses evident REPRODUCTIVE: Enlarged prostate gland. Measures 6 cm wide. Bladder not distended. OSSEOUS: No significant osseous lesions. No fractures. IMPRESSION: 1. No significant acute findings in the abdomen pelvis, realized limitations due to respiratory motio n artifact. 2. Abdominal aortic aneurysm with maximum diameter of 0.8 cm. There is also an element of arterial m egaly of the common iliac arteries which measure up to 2.1 cm. No rupture. 3. Other findings as above. RADIATION DOSE DELIVERED: Total DLP DATA REPOSITORY: All CT scans at this facility are submitted to the National Radiology Data Registry (NRDR) Dose Index Registry (DIR) with the [employer] (ACR). RADIATION OPTIMIZATION: All CT scans at this facility use at least one of these dose optimization te chniques: automated exposure control; mA and/or kV adjustment per patient size (includes targeted exa ms where dose is matched to clinical indication); or iterative reconstruction.
--- NOTE | 2022-10-05 19:00 | DI.CT_ITS ---
Exam(s) CT LUMBAR SPINE RECONS EXAM: CT LUMBAR SPINE RECONS CLINICAL HISTORY: low back pain. TECHNIQUE: Imaging Protocol: Axial computed tomography images with coronal and sagittal reformatted images were created and reviewed COMPARISON: CT CT CHEST PE CTA from 10/05/2022 FINDINGS: Incidental: x advanced chronic cc appearing interstitial lung disease noted. No pleural effusions. Bones: There are no fractures, listhesis, nor pars defects. Multilevel chronic disc disease with ad vanced disc space narrowing at L3-4 and L4-5 levels and some posterior bony ridging at these 2 levels evident. Lesser amount of disc narrowing at L5-S1. T12-L1, L1-2, and L2-3 levels exhibit normal di sc space height. Multilevel degenerative changes are noted in the facet joints of the lower 3 levels . No facet malalignment. Schmorl's node invagination noted in the inferior endplate of L4, anterior ly. No compression fracture. PARASPINAL SOFT TISSUES: Distal abdominal aortic aneurysm and arterial megaly of the common iliac art eries. Maximum diameter of distal abdominal aortic aneurysm is 2.8 cm. IMPRESSION: 1. Multilevel degenerative changes. No fractures. No listhesis. 2. Other findings as above. RADIATION DOSE DELIVERED: Total DLP DATA REPOSITORY: All CT scans at this facility are submitted to the National Radiology Data Registry (NRDR) Dose Index Registry (DIR) with the [employer] (ACR). RADIATION OPTIMIZATION: All CT scans at this facility use at least one of these dose optimization te chniques: automated exposure control; mA and/or kV adjustment per patient size (includes targeted exa ms where dose is matched to clinical indication); or iterative reconstruction.
[2022-10-05] MEDS: Omnipaque 350 MG/ML 100 ML BTL IJ (19:06)
[2022-10-05] MEDS: Normal Saline Flush 10 ML SYR IVP (19:35)
--- NOTE | 2022-10-05 19:48 | DI.VRAD_ITS ---
PROCEDURE INFORMATION: Exam: CT Head Without Contrast Exam date and time: 10/05/2022 7:13 PM Age: 77 years old Clinical indication: Injury or trauma; Other: Hit head, fall, R neck pain; Blunt trauma (contusions or hematomas); Consciousness not specified; Injury date: 10/05/22 TECHNIQUE: Imaging protocol: Computed tomography of the head without contrast. Radiation optimization: All CT scans at this facility use at least one of these dose optimization techniques: automated exposure control; mA and/or kV adjustment per patient size (includes targeted exams where dose is matched to clinical indication); or iterative reconstruction. COMPARISON: CT HEAD CERVICAL SPINE WO 03/19/2022 7:38 PM FINDINGS: Brain: Slight prominence of cerebral sulci reflects diffuse cerebral atrophy. A few poorly marginated hypodensities seen throughout the deep and periventricular white matter of both cerebral hemispheres are consistent with microvascular ischemic changes. Brainstem and cerebellum are unremarkable and there is no evidence of acute transcortical infarction or recent intracranial hemorrhage. Cerebral ventricles: Stable in configuration with no midline shift or hydrocephalus. Paranasal sinuses: Grossly clear throughout. Mastoid air cells: There is opacification of a few scattered inferior right-sided mastoid air cells with left-sided mastoid air cells grossly clear throughout. Bones/joints: Bony calvarium and skull base are intact and no acute fractures are detected. Soft tissues: Unremarkable. IMPRESSION: Cerebral atrophy and probable microvascular ischemic changes with no evidence of acute infarct, recent hemorrhage or hydrocephalus. No acute intracranial process is detected. PROCEDURE INFORMATION: Exam: CT Cervical Spine Without Contrast Exam date and time: 10/05/2022 7:13 PM Age: 77 years old Clinical indication: Injury or trauma; Other: Hit head, fall, R neck pain; Blunt trauma (contusions or hematomas); Consciousness not specified; Injury date: 10/05/22 TECHNIQUE: Imaging protocol: Computed tomography of the cervical spine without contrast. Radiation optimization: All CT scans at this facility use at least one of these dose optimization techniques: automated exposure control; mA and/or kV adjustment per patient size (includes targeted exams where dose is matched to clinical indication); or iterative reconstruction. COMPARISON: CT HEAD CERVICAL SPINE WO 03/19/2022 7:38 PM FINDINGS: Bones/joints: There is arthrosis involving the anterior atlantodental interval with loss of joint space and marginal osteophyte formation and the odontoid process is grossly intact. There is gross preservation of vertebral body height throughout cervical levels with no vertebral body fractures or significant subluxations detected. No acute fractures detected involving the posterior elements of the cervical spine. Discs/Spinal canal/Neural foramina: Loss of disc space height with posterior disc bulging/protrusion is most significant at C6-C7 resulting in canal narrowing and possible mass-effect upon the ventral cord which could be better evaluated with MRI. No severe bony foraminal narrowings are detected at cervical levels. Lungs: No pneumothorax or consolidation detected at the lung apices. Soft tissues: Unremarkable. IMPRESSION: Cervical spondylosis with suspected central canal narrowing as above. No acute cervical fractures are detected. Dictated and Authenticated by: Jose Roberto Holman MD. Ordering:JUDI Agrawal MD
--- NOTE | 2022-10-05 20:09 | DI.VRAD_ITS ---
PROCEDURE INFORMATION: Exam: CT Lumbar Spine Without Contrast Exam date and time: 10/05/2022 7:22 PM Age: 77 years old Clinical indication: Other: Low back pain TECHNIQUE: Imaging protocol: Computed tomography of the lumbar spine without contrast. Radiation optimization: All CT scans at this facility use at least one of these dose optimization techniques: automated exposure control; mA and/or kV adjustment per patient size (includes targeted exams where dose is matched to clinical indication); or iterative reconstruction. COMPARISON: CT ABDOMEN PELVIS W 05/02/2021 1:29 PM FINDINGS: Bones/joints: There is gross preservation of vertebral body height throughout the lumbar spine with no acute fractures or dislocations detected. Posterior elements appear grossly intact throughout lumbar levels. L1-L2: No disc bulge/protrusion, canal stenosis or foraminal narrowing detected. L2-L3: No disc bulge/protrusion, canal stenosis or foraminal narrowing detected. L3-L4: There is loss of disc space height and posterior osteocartilaginous ridging combines with facet arthropathy to produce moderate central canal stenosis and partial effacement of the subarticular recesses. L4-L5: There is loss of disc space height and posterior osteocartilaginous ridging combines with facet arthropathy to produce severe central canal stenosis and bilateral effacement of the subarticular recesses. Endplate and facet changes also produce right foraminal narrowing at L4-L5. L5-S1: There is mild posterior osteocartilaginous ridging without central canal stenosis. Endplate changes produce left foraminal narrowing with the right neural foramen adequate at L5-S1. 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 IMPRESSION: Lumbar spondylosis with degenerative disc and facet changes producing central canal stenosis and effacement of subarticular recesses at L3-L4 and L4-L5. No acute lumbar fractures are detected. Dictated and Authenticated by: Jose Roberto Holman MD. Ordering:JUDI Agrawal MD
--- NOTE | 2022-10-05 20:14 | DI.VRAD_ITS ---
PROCEDURE INFORMATION: Exam: CT Abdomen And Pelvis Without Contrast Exam date and time: 10/05/2022 7:22 PM Age: 77 years old Clinical indication: Abdominal pain; Other: Low back pain TECHNIQUE: Imaging protocol: Computed tomography of the abdomen and pelvis without contrast. Radiation optimization: All CT scans at this facility use at least one of these dose optimization techniques: automated exposure control; mA and/or kV adjustment per patient size (includes targeted exams where dose is matched to clinical indication); or iterative reconstruction. COMPARISON: CT ABDOMEN PELVIS W 05/02/2021 1:29 PM FINDINGS: Liver: Liver is normal in appearance and there is no hepatic laceration or abnormal perihepatic fluid detected. Gallbladder and bile ducts: Gallbladder is normal and there is no abnormal pericholecystic fluid or dilatation of intrahepatic biliary radicles. Pancreas: Pancreatic atrophy with no evidence of pancreatic contusion, transection or abnormal peripancreatic fluid collection. Spleen: Spleen is normal appearance with no splenic laceration or abnormal perisplenic fluid detected. Adrenal glands: Normal. No mass. Kidneys and ureters: No evidence of hydronephrosis, renal laceration or abnormal perinephric fluid. Stomach and bowel: Stomach and segments of large and small bowel are unremarkable. Appendix: No evidence of acute appendicitis. Intraperitoneal space: No pneumoperitoneum or free intraperitoneal air is detected. 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 Lymph nodes: Unremarkable. No enlarged lymph nodes. Urinary bladder: Unremarkable as visualized. Reproductive: Unremarkable as visualized. Bones/joints: Degenerative disc and facet changes are seen at lower lumbar levels and no acute fractures are detected. Soft tissues: Unremarkable. IMPRESSION: No acute abdominopelvic visceral injury detected. No acute fractures are seen at abdominopelvic levels. Dictated and Authenticated by: Jose Roberto Holman MD. Ordering:JUDI Agrawal MD
--- NOTE | 2022-10-05 20:21 | DI.VRAD_ITS ---
PROCEDURE INFORMATION: Exam: CTA Chest With Contrast Exam date and time: 10/05/2022 7:22 PM Age: 77 years old Clinical indication: Shortness of breath; Patient HX: Chest pain, SOB, HX cardiac dz, R/O pe TECHNIQUE: Imaging protocol: Computed tomographic angiography of the chest with contrast. 3D rendering (Not supervised by radiologist): MIP and/or 3D reconstructed images were created by the technologist. Radiation optimization: All CT scans at this facility use at least one of these dose optimization techniques: automated exposure control; mA and/or kV adjustment per patient size (includes targeted exams where dose is matched to clinical indication); or iterative reconstruction. Contrast material: OMNIPAQUE 350; Contrast volume: 75 ml; Contrast route: INTRAVENOUS (IV); COMPARISON: CT CHEST PE CTA 03/19/2022 8:43 PM FINDINGS: Pulmonary arteries: No right or left main, lobar or proximal segmental pulmonary arterial emboli are detected. Suboptimal assessment distal to this level due to motion artifact with distal segmental/subsegmental pulmonary emboli not excluded, particularly at the lung bases. Aorta: Unremarkable. No aortic aneurysm. No aortic dissection. Lungs: Emphysematous disease is evident with innumerable scattered small foci of parenchymal destruction seen most prominently in the upper lung zones and fibrotic changes and areas of bronchiectasis also identified along both lung bases. No discrete parenchymal lung mass or focal consolidation detected. Pleural spaces: No pneumothorax or pleural effusion. Heart: Heart size is upper limits of normal and there is no evidence of pericardial effusion or right heart strain. Coronary calcifications are evident and RV/LV ratio is estimated at 0.84. Lymph nodes: No mediastinal or hilar mass or adenopathy detected. Bones/joints: No acute osseous lesions are detected at thoracic levels. Soft tissues: Unremarkable. IMPRESSION: 1. No right or left main, lobar or proximal segmental pulmonary arterial emboli are detected. Suboptimal assessment distal to this level due to motion artifact with distal segmental/subsegmental pulmonary emboli not excluded, particularly at the lung bases. 2. Chronic emphysematous and fibrotic changes identified with no other parenchymal mass or consolidation detected. Dictated and Authenticated by: Jose Roberto Holman MD. Ordering:JUDI Agrawal MD
[2022-10-05 21:19] LABS: Troponin I < 50 ng/L (<or=60)
--- NOTE | 2022-10-05 21:20 | HPE_ITS ---
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 Bilirubin 1.0 AST 18 ALT 24 Alkaline Phosphatase 95 Troponin I < 50 NT-Pro-B Natriuret Pep 87 Total Protein 7.1 Albumin 3.7 Lipase 93 TSH 1.50 Last Vital Signs Temp 37.7 C H 10/05/22 17:52 Pulse 82 10/05/22 19:01 Resp 32 H 10/05/22 19:50 BP 98/43 L 10/05/22 19:01 Pulse Ox 95 10/05/22 20:10 Time Spent Time spent with Patient: >75 minutes Time was spent: preparing to see the patient(eg.review tests), obtaining and/or reviewing separately otained hiistory, ordering medications,tests, procedures, referring, communicating with other health critical care educator, indepentently interpreting results and care coordination
[2022-10-05] MEDS: methylPREDNISolone SUCC 125 MG VIAL IVP (21:22)
[2022-10-05] MEDS: Albuterol/Ipratropium 3 ML UPD VIAL UPD (21:22)
--- NOTE | 2022-10-05 21:28 | NUR.NOTE ---
Nursing Note: Patient failed waking O2 test. Lowest sat was 74% on RA. Placed on 4L NC at bedside. MD Cabrera notified.
[2022-10-05] MEDS: Normal Saline 500 ML IV (21:41)
[2022-10-05 22:35] LABS: Source Nasal/Nares
[2022-10-05 23:10] LABS: COVID-19 PCR Negative (Negative)
[2022-10-06] VITALS (7 sets, daily range): BP systolic 129–159; BP diastolic 61–81; PULSE 59–77; RESP 1–20; TEMP 35.7–36.7; O2SAT 90–96
[2022-10-06] MEDS: Normal Saline 1,000 ML 100 ML IV (00:15)
[2022-10-06] MEDS: DOXYCYCLINE 100 MG in Normal Saline 100 ML IVPB (02:14)
[2022-10-06 02:54] LABS: Bilirubin Negative (Negative); Blood Negative (Negative); Clarity Clear (Clear); Glucose 500 mg/dL (Negative); Ketones Trace mg/dL (Negative); Leukocyte Esterase Negative (Negative); Nitrite Negative (Negative); pH 5.5 (5-8)
[2022-10-06] MEDS: Albuterol/Ipratropium 3 ML UPD VIAL UPD ×2 (03:27→10:11)
[2022-10-06 05:53] LABS: HCT 47.2 % (40.0-50.0); HGB 15.6 g/dL (13.5-17.5); MCH 31.3 pg (27.0-33.0); MCHC 33.1 % (32.0-36.0); MCV 95 fL (80-95); MPV 11.3 fL (8.0-11.0); Platelet Count 181 10^3/uL (130-400); RBC 4.99 10^6/uL (4.36-5.78); RDW 14.2 % (11.8-14.1); RDW-SD 49.5 fL; WBC 15.08 10^3/uL (4.4-10.8)
[2022-10-06] MEDS: methylPREDNISolone SUCC 125 MG VIAL 80 MG IVP (06:01)
[2022-10-06 06:11] LABS: ALT 17 U/L (16-63); AST 13 U/L (15-37); Albumin 3.1 g/dL (3.4-5.0); Alkaline Phosphatase 84 U/L (46-116); Anion Gap 8.1 mmol/L (3-11); BUN 30 mg/dL (7-18); Bilirubin, Total 0.6 mg/dL (0.2-1.0); CO2 23.9 mmol/L (21.0-32.0); CREATININE 1.1 mg/dL (0.70-1.30); Calcium 9.5 mg/dL (8.5-10.1); Chloride 105 mmol/L (98-107); Estimated GFR 70.01 (mL/min/1.73m2); Glucose 184 mg/dL (74-106); Magnesium 2.3 mg/dL (1.8-2.4); Potassium 4.4 mmol/L (3.5-5.1); Sodium 137 mmol/L (136-145); Total Protein 6.5 g/dL (6.4-8.2)
[2022-10-06 06:12] LABS: Troponin I < 50 ng/L (<or=60)
[2022-10-06] MEDS: Tamsulosin 0.4 MG CAPCR PO (08:29)
[2022-10-06] MEDS: Ezetimibe 10 MG TAB PO (08:29)
[2022-10-06] MEDS: buPROPion-CR 150 MG TABCR PO (08:29)
[2022-10-06] MEDS: Gabapentin 300 MG CAP PO (08:29)
[2022-10-06] MEDS: Losartan 50 MG TAB 100 MG PO (08:29)
[2022-10-06] MEDS: Insulin Aspart 300 UNITS/3 ML PEN SC (08:30)
[2022-10-06] MEDS: Clopidogrel 75 MG TAB PO (08:30)
[2022-10-06] MEDS: Aspirin 81 MG CHEW PO (08:30)
[2022-10-06] MEDS: Loratidine 10 MG TAB PO (08:30)
[2022-10-06] MEDS: amLODIPine 5 MG TAB PO (08:30)
[2022-10-06] MEDS: Pantoprazole 40 MG TABCR PO (08:30)
[2022-10-06] MEDS: Normal Saline Flush 10 ML SYR IVP (08:32)
[2022-10-06] MEDS: Enoxaparin 40 MG/0.4 ML SYR SC (08:32)
[2022-10-06] MEDS: Clotrimazole/Betamet Diprop Cream 15 GM TUBE TP (08:33)
--- NOTE | 2022-10-06 08:46 | NUR.NOTE ---
Nursing Note:Per Dr. Estes, called Dr. Alvarez and gave him the verbal reading of right middle lobe pneumonia.
--- NOTE | 2022-10-06 09:14 | INITIAL_ITS ---
- If Service Date Differs Date of service: 10/06/22 Time of Service: 10:00 Care Management Initial Assess REASON FOR HOSPITALIZATION:: COPD with acute exacerbation PAST MEDICAL HISTORY/PAST SURGICAL HISTORY:: All Active Problems (Updated 10/06/22 @ 06:23 by Ty Zabala). Hypoxemia (Acute). COPD with exacerbation (Acute). Chest pain (Acute). Atypical chest pain (Acute). 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 Hypoxemic respiratory f ailure, chronic (Acute). COPD with acute exacerbation (Acute). Tubular adenoma of colon (Acute). Emphysema lung (Acute). Aortic atherosclerosis (Acute). Cellulitis of ear (Acute). Chronic obstructive lung disease (Chronic). pulmonary fibrosis on chest xray. ongoing tobacco use. add back budesonide nebs to see if we can improve cough. Diabetes mellitus (Chronic 05/05/13). check A1c and creat. Gastroesophageal reflux disease (Chronic). Hyperlipidemia (Chronic 05/05/13). Kidney stone (Acute 09/14/14). recurrent x3 on left. [facility] 10/12/[facility]; F/U Dr. Fair. Male erectile disorder (Acute 08/29/13). Palpitations (Acute 11/04/12). multiple PVCs, bradycardia (2013). ([facility] [place] Abraham, echo normal LVEF and stress test neg ischemia). Rheumatoid arthritis (Chronic 05/05/13). [facility] [place] Leon. Smoker (Chronic). Tubular adenoma (Acute). 11/20 COLONOSCOPY: ONE TUBULOVILLOUS ADENOMA & TWO TUBULAR ADENOMAS. 05/22/13: DR. Mateusz COPELAND:TUBULAR ADENOMAS. 11/13/16: Dr Jian Crump: tublular and tubulovillous adenomas. Erectile dysfunction (Chronic). Lipoma (Acute). Depressive disorder (Chronic). RCA occlusion (Acute). 05/25/19 [facility] [place]. Bradycardia (Acute). Fatigue (Acute). Chronic knee pain (Acute). Arthritis of knee, right (Acute). Bilateral hip joint arthritis (Acute). Degenerative lumbar spinal stenosis (Acute). Adenomatous polyps (Acute). Serrated adenoma o f colon (Acute ~07/2020). Mallet deformity of left ring finger (Acute 11/30/20). with avulsion fracture. Anaphylaxis due to hymenoptera venom (Acute). Medical History . Acute kidney injury. ASCVD (arteriosclerotic cardiovascular disease) (05/05/13). 2 NEW STENTS 04/22. H/O IMI; angioplasty and stent; [place] , 02/11; CVA/TIA. BPH loc w urin obs/LUTS. COPD (chronic obstructive pulmonary disease). CVA (cerebral vascular accident) (11/21/17). Hypertension. same meds, good BP here today. Myocardial infarction. 2020 x2 stents. Sepsis. Surgical History . Colonoscopy - MAC (05/16/13). Colonoscopy - MAC (11/13/16). Colostomy (~2006). TEMP W/ REVISION. Excision, Lipoma (05/19/16). posterior neck. Hernia Repair, Incisional. History of incisional hernia repair. History of knee surgery. KNEE REPAIR. RIGHT. RESECTION. ANGIOFIBROMA;RIGHT FOOT 02/04/18. Stented coronary artery. [facility] [place] s/[place] stent of old stent-KB PREVIOUS FUNCTIONAL STATUS/SOCIAL/FAMILY SUPPORTS:: Lawrence, also called Arcenio, lives in a mobile home in [facility]. He has a male roomate and his son also lives with him. Arcenio has 4 children, 11 grandchildren and 9 or 10 great grandchildren. 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 He uses a cane for ambulation. CURRENT FUNCTIONAL STATUS:: Arcenio was pacing and using profanity when met with him. He was very agitated and was speaking in a lound voice while thumping his cane forecefully on the bed. He stated that he did not want to be here at [facility] and intended to leave.Arcenio indicated that two close relatives at [facility] within the past year and somehow he felt it was due to poor medical care. He indicated that he did not trust his provider here or at his PCP's office. Arcenio also indicated that he had a fight with his son last night. He refused 's offer of assistance and stated that he would get home one way or another. ADVANCE DIRECTIVES:: On file. Kandis Cooley [facility] Has patient been provided with info about the portal/API?: Yes Did the patient sign up for the portal?: No CODE STATUS:: Full Code INSURANCE COVERAGE / FINANCIAL ISSUES:: Medicare. Financial Assist 100 PRIMARY CARE PHYSICIAN:: Mike Burns POTENTIAL DISCHARGE NEEDS:: follow up with PCP and plan of care PATIENT/FAMILY EDUCATION NEEDS:: Review of discharge instructions, limitations, activity, medications, follow up plan, discuss Ask Me Three TRANSPORTATION:: via private vehicle with family PLAN:: Arcenio left AMA.
--- NOTE | 2022-10-06 09:46 | DSE_ITS ---
Date of service: 10/06/22 Time of Service: 09:46 DS: Diagnosis Discharge Diagnosis (1) COPD with acute exacerbation: Status: Acute (2) Hypoxemic respiratory failure, chronic: Status: Acute (3) Atypical chest pain: Status: Acute (4) Pulmonary emphysema with fibrosis of lung: Status: Chronic (5) Diabetes mellitus: Status: Chronic (6) ASCVD (arteriosclerotic cardiovascular disease): (7) Smoker: Status: Chronic Discharge Plan Disposition Patient Disposition: Against Medical Advice Condition: Stable Discharge Details Reason For Visit: COPD Exacerbation w/Hypoxemia,Atypical Chest Pain Admit Date/Time: 10/05/22 21:32 Admit Provider: Ty Zabala Attending Provider: Ty Zabala Primary Care Provider: Mike Burns Hospital Course Hospital Course: This is a 72-year-old male patient with a past medical history of COPD and tobacco abuse who presents to the emergency department with an episode of chest pain that he experienced after having a disagreement with his son. Work-up in the emergency department showed no acute ST segment changes on his EKG negative troponin. He was thought to be in COPD exacerbation and advised admission. Radiologist reread shows possible evidence of a community-acquired pneumonia. On morning rounds patient was extremely agitated about his admission stating that he never wanted to be admitted. There was no evidence that he did not have capacity and he was requesting discharge immediately. I did prepare discharge to include Augmentin to treat his pneumonia and a prednisone burst for COPD exacerbation. He did not allow a full physical exam. He also left prior to transportation could be arranged. Discussed with DR Alvarez Home Meds and New Rx's Prescriptions: New prednisone 20 mg Tablet 40 mg PO DAILY Qty: 10 0RF amoxicillin-pot clavulanate 875-125 mg tablet 1 tab PO BID Qty: 10 0RF Continued aspirin 81 mg tablet,chewable 81 mg PO DAILY (DME) lancets [FreeStyle Lancets] 28 gauge misc 1 ea Intradermal DAILY Qty: 300 4RF Rx Instructions: test TID amlodipine 5 mg tablet 5 mg PO BID Qty: 180 3RF atorvastatin 80 mg tablet 80 mg PO QHS Qty: 90 3RF clopidogrel [Plavix] 75 mg tablet 75 mg PO DAILY Qty: 90 4RF Jardiance 25 mg tablet 25 mg PO DAILY Qty: 90 3RF gabapentin 300 mg capsule See Rx Instructions .ROUTE .COMPLEX Qty: 90 5RF Dose Instruction: TAKE ONE CAPSULE BY MOUTH THREE TIMES A DAY Rx Instructions: TAKE ONE CAPSULE BY MOUTH THREE TIMES A DAY nitroglycerin [Nitrostat] 0.4 mg tablet, sublingual 0.4 mg Sublingual PRN Qty: 25 11RF Rx Instructions: 1 TAB SL PRN pantoprazole 40 mg tablet,delayed release (DR/EC) 40 mg PO DAILY Qty: 90 3RF Rx Instructions: TAKE 6 HOURS APART FROM YOUR PLAVIX losartan 50 mg tablet 100 mg PO DAILY Qty: 180 3RF insulin glargine 100 unit/mL (3 mL) insulin pen 47 unit SC HS Qty: 45 3RF sildenafil 100 mg tablet 100 mg PO DAILY PRN (Reason: sexual activity) Qty: 5 12RF Rx Instructions: administer 30 minutes to 4 hours before activity tamsulosin 0.4 mg capsule 0.4 mg PO DAILY Qty: 30 12RF clotrimazole-betamethasone 1-0.05 % cream 1 applic topical BID Qty: 45 0RF Rx Instructions: Apply pea-sized amount twice daily to penile skin as directed. 2 weeks only unless directed otherwise (DME) Space Chamber Plus 1 EACH spacer 1 ea Miscellaneous PRN Qty: 1 infliximab [Remicade] 100 MG recon soln 1,000 mg IV .[id number] Label Comments: 05/31/15 Jacqui at [facility] [place] Rheumatology reports: 1000mg IV infusion every 6 months. Done at [facility]. DL 03/05/17 q 4 months. si budesonide 0.5 mg/2 mL suspension for nebulization 0.5 mg Inhalation BID Qty: 60 11RF (DME) pen needle, diabetic [Advocate Pen Needle] 33 gauge x 5/32 needle See Rx Instructions .ROUTE .MEDSUPPLY Qty: 100 3RF Rx Instructions: inject once/day Trulicity 0.75 mg/0.5 mL pen injector 0.75 mg SC QWEEK Qty: 6 3RF (DME) FreeStyle Test Strip 1 strip Miscellaneous DAILY Qty: 300 4RF Rx Instructions: test three times/day fluticasone propionate 50 mcg/actuation spray,suspension 2 spray NS DAILY Qty: 1 8RF bebtelovimab 175 mg/2 mL (87.5 mg/mL) solution 175 mg IV ONCE Qty: 2 0RF Rx Instructions: as a single dose bupropion HCl 150 mg tablet sustained-release 12 hr 150 mg PO BID Qty: 180 3RF ezetimibe 10 mg tablet 10 mg PO DAILY Qty: 90 4RF albuterol sulfate [Ventolin HFA] 90 mcg/actuation HFA aerosol inhaler 2 inh INHALATION Q6H PRN (Reason: bronchospasm) Qty: 8.5 3RF benzonatate 100 mg capsule 100 mg PO TID PRN (Reason: cough) Qty: 60 0RF acetaminophen 650 MG tablet extended release 650 mg PO Q8H PRN (Reason: Pain) Qty: 20 0RF epinephrine 0.3 mg/0.3 mL auto-injector 0.3 mg IM ONCE Qty: 2 0RF Rx Instructions: as a single dose; may repeat once ondansetron HCl 4 mg tablet 1 mg PO Q8H PRN cyclosporine [Restasis] 0.05 % dropperette 1 drp BID Label Comments: INSTILL 1 DROP IN EACH EYE TWO TIMES A DAY loratadine 10 mg capsule 10 mg PO DAILY Qty: 10 0RF diclofenac sodium 1 % gel 2 g topical QID Qty: 100 0RF Rx Instructions: apply to single elbow, wrist or hand; for hand includes palm/fingers/back of hand Discharge Instructions Instructions: Community Acquired Pneumonia (DC) Stand Alone Forms: Nursing Discharge Form Referrals: Mike Burns MD [Primary Care Provider] - 10/14/22 10:00 am Activity:: Activity as Tolerated Equipment/Supplies:: No Equipment Needed Diet:: As Tolerated Discharge Orders Discharge Orders: Discharge Order (Routine); Ordered 10/06/22 Ordered By: Wen Tolentino Discharge Data Discharge Date/Time-TO BE ENTERED AT DEPARTURE: 10/06/22 10:57 DS: Summary Time Spent with Patient providing and/or coordinating discharge services: Less than 30 minutes Status at Discharge Functional status at discharge: independent ambulation Overall status at discharge: patient is back to baseline Mental Status: mental status grossly normal Speech and Movement: speech and movement normal Mood: congruent mood Affect: normal affect Exam Const General: disheveled (older than stated age) and frail appearing Nutritional Appearance: thin Orientation: alert, awake and oriented x3 Limitations: behavioral limitations HENMT Head: normal to inspection, normocephalic and atraumatic Chest Chest: normal inspection of the chest Resp Effort & Inspection: normal respiratory effort Cardio Rate: regular rate Rhythm: regular rhythm GI Inspection: normal to inspection Skin General skin exam: no rashes or lesions noted Neuro General: patient alert, patient awake and patient oriented x3 Extrem General: normal to inspection and full ROM Psych Mental Status: mental status grossly normal Speech and Movement: speech and movement normal Mood: congruent mood Affect: normal affect DS: Data Vitals/I&O Vitals and I&O: Vital Signs Temperature 35.7 C L 10/06/22 07:46 Temperature Source Tympanic 10/06/22 07:46 Pulse 59 L 10/06/22 07:46 Pulse Rhythm Regular 10/06/22 04:13 Pulse 76 10/05/22 21:20 Respiratory Rate 20 10/06/22 07:46 Respiratory Effort 10/06/22 04:13 Respiratory Depth Shallow 10/06/22 04:13 Respiratory Pattern Normal 10/06/22 04:13 Blood Pressure 159/81 H 10/06/22 07:46 Blood Pressure Mean 56 10/05/22 19:01 Blood Pressure Position Sitting 10/05/22 17:52 Pulse Oximetry 94 10/06/22 07:46 Oxygen Delivery Method Nasal Cannula 10/06/22 07:46 Oxygen Flow Rate 2 10/06/22 07:46 Pain Level 0 10/06/22 07:46 Intake & Output 10/05/22 10/05/22 10/06/22 11:59 23:59 11:59 Intake Total 240 / 240 Output Total 675 / 675 Balance -435 / -435 Weight 85.185 kg 82.917 kg Intake: Oral 240 / 240 Output: Urine 675 / 675 Other: Urine Color Straw Urine Appearance Clear Stool Size Moderate Stool Characteristics Formed Voiding Methods Urinal Data Completed and Pending Labs on day of discharge: Labs from last 24 hours 10/06/22 10/06/22 10/06/22 06:00 05:45 05:45 WBC 15.08 H RBC 4.99 Hgb 15.6 Hct 47.2 MCV 95 MCH 31.3 MCHC 33.1 RDW 14.2 H Plt Count 181 MPV 11.3 H Immature Gran % Neutrophils % Lymphocytes % Monocytes % Eosinophils % Basophils % Nucleated RBC % Absolute Neutrophils Absolute Lymphocytes Absolute Monocytes Absolute Eosinophils Absolute Basophils PT INR APTT Sodium 137 Potassium 4.4 Chloride 105 Carbon Dioxide 23.9 Anion Gap 8.1 BUN 30 H Creatinine 1.1 Est GFR (CKD-EPI 2020) 70.01 Glucose 184 H Calcium 9.5 Magnesium 2.3 Total Bilirubin 0.6 AST 13 L ALT 17 Alkaline Phosphatase 84 Troponin I Cancelled NT-Pro-B Natriuret Pep Total Protein 6.5 Albumin 3.1 L Lipase TSH Urine Color Urine Clarity Urine pH Ur Specific [place] Urine Protein Urine Ketones Urine Blood Urine Nitrite Urine Bilirubin Urine Urobilinogen Ur Leukocyte Esterase Urine Glucose COVID-19 Source SARS-CoV-2 (PCR) 10/06/22 10/06/22 10/05/22 05:45 02:23 22:28 WBC RBC Hgb Hct MCV MCH MCHC RDW Plt Count MPV Immature Gran % Neutrophils % Lymphocytes % Monocytes % Eosinophils % Basophils % Nucleated RBC % Absolute Neutrophils Absolute Lymphocytes Absolute Monocytes Absolute Eosinophils Absolute Basophils PT INR APTT Sodium Potassium Chloride Carbon Dioxide Anion Gap BUN Creatinine Est GFR (CKD-EPI 2020) Glucose Calcium Magnesium Total Bilirubin AST ALT Alkaline Phosphatase Troponin I < 50 NT-Pro-B Natriuret Pep Total Protein Albumin Lipase TSH Urine Color Yellow Urine Clarity Clear Urine pH 5.5 Ur Specific [place] 1.010 Urine Protein Negative Urine Ketones Trace H Urine Blood Negative Urine Nitrite Negative Urine Bilirubin Negative Urine Urobilinogen 1.0 H Ur Leukocyte Esterase Negative Urine Glucose 500 H COVID-19 Source Nasal/Nares SARS-CoV-2 (PCR) Negative 10/05/22 10/05/22 10/05/22 20:53 18:00 18:00 WBC 16.83 H RBC 5.36 Hgb 16.9 Hct 50.9 H MCV 95 MCH 31.5 MCHC 33.2 RDW 14.5 H Plt Count 217 MPV 11.3 H Immature Gran % 0.5 Neutrophils % 88.0 Lymphocytes % 3.6 Monocytes % 6.5 Eosinophils % 0.9 Basophils % 0.5 Nucleated RBC % 0.0 Absolute Neutrophils 14.81 H Absolute Lymphocytes 0.61 L Absolute Monocytes 1.09 H Absolute Eosinophils 0.15 Absolute Basophils 0.08 PT 11.4 H INR 1.1 APTT 24.0 Sodium Potassium Chloride Carbon Dioxide Anion Gap BUN Creatinine Est GFR (CKD-EPI 2020) Glucose Calcium Magnesium Total Bilirubin AST ALT Alkaline Phosphatase Troponin I < 50 NT-Pro-B Natriuret Pep Total Protein Albumin Lipase TSH Urine Color Urine Clarity Urine pH Ur Specific [place] Urine Protein Urine Ketones Urine Blood Urine Nitrite Urine Bilirubin Urine Urobilinogen Ur Leukocyte Esterase Urine Glucose COVID-19 Source SARS-CoV-2 (PCR) 10/05/22 18:00 WBC RBC Hgb Hct MCV MCH MCHC RDW Plt Count MPV Immature Gran % Neutrophils % Lymphocytes % Monocytes % Eosinophils % Basophils % Nucleated RBC % Absolute Neutrophils Absolute Lymphocytes Absolute Monocytes Absolute Eosinophils Absolute Basophils PT INR APTT Sodium 140 Potassium 4.4 Chloride 104 Carbon Dioxide 26.3 Anion Gap 9.7 BUN 27 H Creatinine 1.4 H Est GFR (CKD-EPI 2020) 52.41 Glucose 148 H Calcium 9.3 Magnesium Total Bilirubin 1.0 AST 18 ALT 24 Alkaline Phosphatase 95 Troponin I < 50 NT-Pro-B Natriuret Pep 87 Total Protein 7.1 Albumin 3.7 Lipase 93 TSH 1.50 Urine Color Urine Clarity Urine pH Ur Specific [place] Urine Protein Urine Ketones Urine Blood Urine Nitrite Urine Bilirubin Urine Urobilinogen Ur Leukocyte Esterase Urine Glucose COVID-19 Source SARS-CoV-2 (PCR) PFSH All Active Problems (Updated 10/06/22 @ 06:23 by Ty Zabala) Hypoxemia (Acute) COPD with exacerbation (Acute) Chest pain (Acute) Atypical chest pain (Acute) 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) Hypoxemic respiratory failure, chronic (Acute) COPD with acute exacerbation (Acute) Tubular adenoma of colon (Acute) Emphysema lung (Acute) Aortic atherosclerosis (Acute) Cellulitis of ear (Acute) Chronic obstructive lung disease (Chronic) pulmonary fibrosis on chest xray ongoing tobacco use add back budesonide nebs to see if we can improve cough Diabetes mellitus (Chronic 05/05/13) check A1c and creat Gastroesophageal reflux disease (Chronic) Hyperlipidemia (Chronic 05/05/13) Kidney stone (Acute 09/14/14) recurrent x3 on left [facility] 10/12/16-[facility]; F/U Dr. Fair Male erectile disorder (Acute 08/29/13) Palpitations (Acute 11/04/12) multiple PVCs, bradycardia (2013) ([facility] [place], Dr Abraham, echo normal LVEF and stress test neg ischemia) Rheumatoid arthritis (Chronic 05/05/13) [facility] Smoker (Chronic) Tubular adenoma (Acute) 11/20 COLONOSCOPY: ONE TUBULOVILLOUS ADENOMA & TWO TUBULAR ADENOMAS. 05/22/13: DR. Mateusz COPELAND:TUBULAR ADENOMAS 11/13/16: Dr Jian Crump: tublular and tubulovillous adenomas Erectile dysfunction (Chronic) Lipoma (Acute) Depressive disorder (Chronic) RCA occlusion (Acute) 05/25/19 [facility] Bradycardia (Acute) Fatigue (Acute) Chronic knee pain (Acute) Arthritis of knee, right (Acute) Bilateral hip joint arthritis (Acute) Degenerative lumbar spinal stenosis (Acute) Adenomatous polyps (Acute) Serrated adenoma of colon (Acute ~07/2020) Mallet deformity of left ring finger (Acute 11/30/20) with avulsion fracture Anaphylaxis due to hymenoptera venom (Acute) Medical History Acute kidney injury ASCVD (arteriosclerotic cardiovascular disease) (05/05/13) 2 NEW STENTS 04/22 H/O IMI; angioplasty and stent; [place] , 02/11; CVA/TIA BPH loc w urin obs/LUTS COPD (chronic obstructive pulmonary disease) CVA (cerebral vascular accident) (11/21/17) Hypertension same meds, good BP here today Myocardial infarction 2020 x2 stents Sepsis Surgical History Colonoscopy - MAC (05/16/13) Colonoscopy - MAC (11/13/16) Colostomy (~2006) TEMP W/ REVISION Excision, Lipoma (05/19/16) posterior neck Hernia Repair, Incisional History of incisional hernia repair History of knee surgery KNEE REPAIR RIGHT RESECTION ANGIOFIBROMA;RIGHT FOOT 02/04/18 Stented coronary artery 05/25/19 [facility] [place]; s/p stent of old stent-KB Family History Mother Essential hypertension Heart disease Stroke Father Stroke Brother Heart disease Family History Diabetes Heart disease Cancer Brother No problems noted. Brother No problems noted. Sister No problems noted. Sister Alcohol abuse Social History Smoking/Tobacco Use Status: Current every day Tobacco Type: cigarettes Tobacco: How many years used: 60 Quit status: has quit before Second Hand Exposure: Yes Smoking risk assessment performed?: Yes Alcohol Intake: former Drug use: Never Substance use type: does not use Household members: family Housing: house Communication Needs: None Do you need help understanding health information?: Rarely Pets and animals: Yes Pets and animals: cat(s) Sexually active: No Current gender identity: male What is your relationship status?: How often do you talk on the phone with friends or family?: three or more times per week How often do you get together with friends or relatives?: twice per week How often do you attend adventist or lutheran services?: decline to answer Do you belong to any clubs or organized social groups?: no Panel score (0-1 are the most socially isolated patients): 1 What type of physical activity do you participate in: walking Duration: < 15 minutes/day Frequency: 1-2 times per week Monika/Voodoo: None Special monika needs: No Seatbelt use: sometimes Helmet use: No Drive intox or ride w/intox commercial driver's license driver: No Do you feel safe at home: Yes Do you feel safe in your relationship?: Yes Additional Social history: Lives with roommate in trailer at [facility]. 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 4 adult kids in the area. Time Spent with Patient Time Spent with Patient: <45 minutes Time was spent: preparing to see the patient(eg.review tests), ordering medications,tests, procedures, referring, communicating with other health women's health care nurse practitioner and indepentently interpreting results
== END 2022-10-06 10:57 | disposition left against medical advice (07) | DRG 191 ==
LOC: ER 23:39 → MS 23:41
PROVIDERS: Admitting Provider Family Medicine; Emergency Provider Student in an Organized Health Care Education/Training Program; PCP Family Medicine; Visit Provider Family Medicine
DX: J44.1 Chronic obstructive pulmonary disease with (acute) exacerbation (principal); J96.11 Chronic respiratory failure with hypoxia; N13.8 Other obstructive and reflux uropathy; Z79.4 Long term (current) use of insulin; Z86.73 Personal history of transient ischemic attack (TIA), and cerebral infarction without residual deficits; E11.49 Type 2 diabetes mellitus with other diabetic neurological complication; M06.9 Rheumatoid arthritis, unspecified; I25.10 Atherosclerotic heart disease of native coronary artery without angina pectoris; Z95.5 Presence of coronary angioplasty implant and graft; K21.9 Gastro-esophageal reflux disease without esophagitis; I10 Essential (primary) hypertension; E78.00 Pure hypercholesterolemia, unspecified; I25.2 Old myocardial infarction; J84.10 Pulmonary fibrosis, unspecified; R07.89 Other chest pain; F17.210 Nicotine dependence, cigarettes, uncomplicated; I70.0 Atherosclerosis of aorta; F32.9 Major depressive disorder, single episode, unspecified; M16.0 Bilateral primary osteoarthritis of hip; N40.1 Benign prostatic hyperplasia with lower urinary tract symptoms
CPT/HCPCS: 36415; 71275; 80053; 83690; 85027; 87635; 93005; 93308; 96361; 96374; 99285; J1650; 70450; 72125; 74176; 81003; 83735; 83880; 84443; 84484; 85025; 85610; 85730; 93010; 94640; 99223; 99238; J2930; J3490; J7620

== ENCOUNTER 2022-11-03 01:52 | Outpatient (RCR) | payer MEDICARE, SELFPAY ==
[2022-08-13 00:03] VITALS: BP 149/83; PULSE 59; RESP 19; TEMP 36.3
[2022-11-03] VITALS (9 sets, daily range): BP systolic 109–136; BP diastolic 59–74; PULSE 55–90; RESP 18–22; TEMP 35.5–36.8; O2SAT 91–93
[2022-11-03] MEDS: Acetaminophen 325 MG TAB 650 MG PO (09:07)
[2022-11-03] MEDS: diphenhydrAMINE 25 MG CAP PO (09:07)
[2022-11-03] MEDS: methylPREDNISolone SUCC 125 MG VIAL 50 MG IVP (09:12)
[2022-11-03] MEDS: Normal Saline Flush 10 ML SYR IVP (09:13)
[2022-11-03] MEDS: riTUXimab-PVVR 1,000 MG in Normal Saline 150 ML 62.5 MG IVPB (09:35)
== END 2022-11-10 23:59 | disposition home or self-care (01) ==
LOC: INF 01:52
PROVIDERS: PCP Family Medicine; Visit Provider Nurse Practitioner Acute Care
DX: M06.9 Rheumatoid arthritis, unspecified (principal)
CPT/HCPCS: 96365; 96366; 96374; 96375; J2930; Q5119

== ENCOUNTER 2022-11-15 16:35 | Emergency (ER) | payer MEDICARE, SELFPAY ==
[2022-11-15 16:39] VITALS: BP 119/61; PULSE 63; RESP 18; TEMP 35.8; O2SAT 93
--- NOTE | 2022-11-15 16:59 | ED.GENADUL_ITS ---
Discharge Plan Disposition Patient Disposition: Home Condition: Good Discharge Details Clinical Impression: Cutaneous fungal infection Primary Care Provider: Mike Burns ED Provider: Kathy Reinoso Home Meds and New Rx's Prescriptions: Continued aspirin 81 mg tablet,chewable 81 mg PO DAILY amlodipine 5 mg tablet 5 mg PO BID Qty: 180 3RF atorvastatin 80 mg tablet 80 mg PO QHS Qty: 90 3RF clopidogrel [Plavix] 75 mg tablet 75 mg PO DAILY Qty: 90 4RF Jardiance 25 mg tablet 25 mg PO DAILY Qty: 90 3RF gabapentin 300 mg capsule See Rx Instructions .ROUTE .COMPLEX Qty: 90 5RF Dose Instruction: TAKE ONE CAPSULE BY MOUTH THREE TIMES A DAY Rx Instructions: TAKE ONE CAPSULE BY MOUTH THREE TIMES A DAY nitroglycerin [Nitrostat] 0.4 mg tablet, sublingual 0.4 mg Sublingual PRN Qty: 25 11RF Rx Instructions: 1 TAB SL PRN losartan 50 mg tablet 100 mg PO DAILY Qty: 180 3RF sildenafil 100 mg tablet 100 mg PO DAILY PRN (Reason: sexual activity) Qty: 5 12RF Rx Instructions: administer 30 minutes to 4 hours before activity tamsulosin 0.4 mg capsule 0.4 mg PO DAILY Qty: 30 12RF clotrimazole-betamethasone 1-0.05 % cream 1 applic topical BID Qty: 45 0RF Rx Instructions: Apply pea-sized amount twice daily to penile skin as directed. 2 weeks only unless directed otherwise (DME) Space Chamber Plus 1 EACH spacer 1 ea Miscellaneous PRN Qty: 1 infliximab [Remicade] 100 MG recon soln 1,000 mg IV .[id number] Patient Comments: 05/31/15 [place] [facility] [place]: 1000mg IV infusion every 6 months. Done at [facility]. [place] 03/05/17 q 4 months. si budesonide 0.5 mg/2 mL suspension for nebulization 0.5 mg Inhalation BID Qty: 60 11RF (DME) FreeStyle Test Strip 1 strip Miscellaneous DAILY Qty: 300 4RF Rx Instructions: test three times/day fluticasone propionate 50 mcg/actuation spray,suspension 2 spray NS DAILY Qty: 1 8RF bebtelovimab 175 mg/2 mL (87.5 mg/mL) solution 175 mg IV ONCE Qty: 2 0RF Rx Instructions: as a single dose bupropion HCl 150 mg tablet sustained-release 12 hr 150 mg PO BID Qty: 180 3RF ezetimibe 10 mg tablet 10 mg PO DAILY Qty: 90 4RF albuterol sulfate [Ventolin HFA] 90 mcg/actuation HFA aerosol inhaler 2 inh INHALATION Q6H PRN (Reason: bronchospasm) Qty: 8.5 3RF benzonatate 100 mg capsule 100 mg PO TID PRN (Reason: cough) Qty: 60 0RF (DME) lancets [TRUEplus Lancets] 28 gauge misc See Rx Instructions .Route Qty: 100 3RF Rx Instructions: test once/day Trulicity 0.75 mg/0.5 mL pen injector 0.75 mg SC QWEEK Qty: 6 3RF pantoprazole 40 mg tablet,delayed release (DR/EC) 40 mg PO DAILY Qty: 90 3RF Rx Instructions: TAKE 6 HOURS APART FROM YOUR PLAVIX insulin glargine 100 unit/mL (3 mL) insulin pen 47 unit SC HS Qty: 45 3RF (DME) pen needle, diabetic [Advocate Pen Needle] 33 gauge x 5/32 needle See Rx Instructions .ROUTE .MEDSUPPLY Qty: 100 3RF Rx Instructions: inject once/day acetaminophen 650 MG tablet extended release 650 mg PO Q8H PRN (Reason: Pain) Qty: 20 0RF epinephrine 0.3 mg/0.3 mL auto-injector 0.3 mg IM ONCE Qty: 2 0RF Rx Instructions: as a single dose; may repeat once ondansetron HCl 4 mg tablet 1 mg PO Q8H PRN cyclosporine [Restasis] 0.05 % dropperette 1 drp BID Patient Comments: INSTILL 1 DROP IN EACH EYE TWO TIMES A DAY loratadine 10 mg capsule 10 mg PO DAILY Qty: 10 0RF diclofenac sodium 1 % gel 2 g topical QID Qty: 100 0RF Rx Instructions: apply to single elbow, wrist or hand; for hand includes palm/fingers/back of hand prednisone 20 mg Tablet 40 mg PO DAILY Qty: 10 0RF Discharge Instructions Instructions: Miconazole (On the skin) Additional Instructions: I am concerned you have a fungal infection in the left ear. Please apply to the area of the external fold where you are having that wet and tender feeling. Apply this ointment twice per day and a thin layer. Do not put this into the ear canal as it did not extend into that area. As we discussed, I would like you to follow-up with your primary care within the next week for reevaluation and to discuss the headache that she had yesterday. If you develop fever/chills, increased pain, spreading of the pain, recurrent headache, weakness, sensory changes or other new/worsening symptom please seek care urgently once again Referrals: Mike Burns MD [Primary Care Provider] - Discharge Data Discharge Date/Time-TO BE ENTERED AT DEPARTURE: 11/15/22 18:10 Medical Decision Making Patient is a pleasant 77-year-old gentleman, past medical history of COPD, atherosclerosis of the aorta, diabetes, GERD, chief complaint of left ear pain. He reports that this pain has been there for about 2 weeks. Pain is increased over the past couple of days. States that initially he felt that it was wet. Has pain more on the external ear. States that it had been warm to the touch initially but this seems to have improved. He denies any fevers or chills. States that he also had similar issue a few months ago. States that he did have headache yesterday which is quite atypical for him. No headache today. Resolved yesterday with Tylenol. On exam, patient appears nontoxic. Neurologically intact. Exam of the left ear is significant for raw area in the cymba brianda that does appear slightly erythematous with some moisture. In the exam and the patient's history, particularly given that he is a diabetic and has had similar infections before, has been primarily concern for possible fungal infection. We will have him apply clotrimazole cream twice per day and follow-up with primary care. Patient and I discussed is quite atypical at his age to recently developed a new headache. This does seem to have been an isolated issue and has not been chronic by any means. He does not have any neurologic deficit denies any when he had a headache yesterday. He and I discussed imaging and further evaluation and he declined stating that he has to go somewhere today. However, he will call his primary care tomorrow to schedule follow-up appointment and discuss further evaluation if needed. Return precautions were discussed. All his questions and concerns were addressed and he is agreement this plan HPI General Date/Time Provider Initiated Documentation: 11/15/22 16:41 . Limitations to Documentation: no limitations . Information obtained by: patient and RN notes reviewed . History of Present Illness 77 year old M presents to the emergency department with the chief complaint of Left ear pain, described as moderate and similar to prior episodes, Quality is described as aching, and is localized to the face (left ear pain, discharge from external ear). Patient reports no radiation. Patient started experiencing this day(s) and it has been constant. No relieving factors improve symptom(s), No exacerbating factors reported . Patient notes no other symptoms.. Patient did receive the following treatments prior to arrival, none Related Data Home Medications Medication Instructions Recorded Confirmed inhalational spacing device (Space ##1 05/27/15 11/15/22 Chamber Plus) infliximab 100 mg intravenous 1,000 mg IV .[id number] 05/31/15 11/15/22 solution (Remicade) acetaminophen 650 mg 650 mg PO Q8H PRN Pain ##20 04/30/17 11/15/22 tablet,extended release budesonide 0.5 mg/2 mL suspension 0.5 mg (2 mL) inhalation BID #60 mL 11/08/20 11/15/22 for nebulization epinephrine 0.3 mg/0.3 mL 0.3 mg (0.3 mL) IM ONCE #2 ea 03/12/21 11/15/22 injection, auto-injector aspirin 81 mg chewable tablet 81 mg PO DAILY 05/27/21 11/15/22 loratadine 10 mg capsule 10 mg PO DAILY #10 caps 12/28/21 11/15/22 blood sugar diagnostic (FreeStyle #300 strips 01/30/22 11/15/22 Test strips) fluticasone propionate 50 2 spray NS DAILY #1 g 01/30/22 11/15/22 mcg/actuation nasal spray,suspension bebtelovimab 175 mg/2 mL (87.5 175 mg (2 mL) IV ONCE #2 mL 02/04/22 11/15/22 mg/mL) intravenous solution (Unapp) bupropion HCl 150 mg tablet,12 hr 150 mg PO BID #180 tabs 03/02/22 11/15/22 sustained-release clotrimazole-betamethasone 1 1 applic topical BID #45 grams 03/04/22 11/15/22 %-0.05 % topical cream cyclosporine 0.05 % eye drops in a 1 drp BID 03/19/22 11/15/22 dropperette (Restasis) ondansetron HCl 4 mg tablet 1 mg PO Q8H PRN 03/19/22 11/15/22 losartan 50 mg tablet 100 mg PO DAILY #180 tabs 03/25/22 11/15/22 ezetimibe 10 mg tablet 10 mg PO DAILY #90 tabs 04/17/22 11/15/22 diclofenac sodium 1 % topical gel 2 g topical QID #100 grams 04/24/22 11/15/22 amlodipine 5 mg tablet 5 mg PO BID #180 tabs 05/28/22 11/15/22 atorvastatin 80 mg tablet 80 mg PO QHS #90 tabs 05/28/22 11/15/22 clopidogrel 75 mg tablet (Plavix) 75 mg PO DAILY #90 tabs 05/28/22 11/15/22 empagliflozin 25 mg tablet 25 mg PO DAILY #90 tabs 05/28/22 11/15/22 (Jardiance) gabapentin 300 mg capsule See Rx Instructions .Route 05/28/22 11/15/22 .COMPLEX #90 caps nitroglycerin 0.4 mg sublingual 0.4 mg sublingual PRN #25 tab-caps 05/28/22 11/15/22 tablet (Nitrostat) sildenafil 100 mg tablet 100 mg PO DAILY PRN sexual 08/18/22 11/15/22 activity #5 tabs tamsulosin 0.4 mg capsule 0.4 mg PO DAILY #30 caps 08/18/22 11/15/22 albuterol sulfate 90 mcg/actuation 2 inh inhalation Q6H PRN 08/27/22 11/15/22 aerosol inhaler (Ventolin HFA) bronchospasm #8.5 grams benzonatate 100 mg capsule 100 mg PO TID PRN cough #60 caps 09/04/22 11/15/22 prednisone 20 mg tablet 40 mg PO DAILY #10 tabs 10/06/22 11/15/22 lancets 28 gauge (TRUEplus Lancets) #100 ea 10/07/22 11/15/22 dulaglutide 0.75 mg/0.5 mL 0.75 mg (0.5 mL) subcut QWEEK #6 mL 10/10/22 11/15/22 subcutaneous pen injector (Trulicity) insulin glargine 100 unit/mL (3 47 unit (0.47 mL) subcut HS #45 mL 10/26/22 11/15/22 mL) subcutaneous pen pantoprazole 40 mg tablet,delayed 40 mg PO DAILY #90 tabs 10/26/22 11/15/22 release pen needle, diabetic 33 gauge x #100 ea 11/09/22 11/15/22/32 (Advocate Pen Needle) Previous Rx's Medication Instructions Recorded acetaminophen 650 mg 650 mg PO Q8H PRN Pain ##20 04/30/17 tablet,extended release budesonide 0.5 mg/2 mL suspension 0.5 mg (2 mL) inhalation BID #60 mL 11/08/20 for nebulization epinephrine 0.3 mg/0.3 mL 0.3 mg (0.3 mL) IM ONCE #2 ea 03/12/21 injection, auto-injector loratadine 10 mg capsule 10 mg PO DAILY #10 caps 12/28/21 blood sugar diagnostic (FreeStyle #300 strips 01/30/22 Test strips) fluticasone propionate 50 2 spray NS DAILY #1 g 01/30/22 mcg/actuation nasal spray,suspension bebtelovimab 175 mg/2 mL (87.5 175 mg (2 mL) IV ONCE #2 mL 02/04/22 mg/mL) intravenous solution (Unapp) bupropion HCl 150 mg tablet,12 hr 150 mg PO BID #180 tabs 03/02/22 sustained-release clotrimazole-betamethasone 1 1 applic topical BID #45 grams 03/04/22 %-0.05 % topical cream losartan 50 mg tablet 100 mg PO DAILY #180 tabs 03/25/22 ezetimibe 10 mg tablet 10 mg PO DAILY #90 tabs 04/17/22 diclofenac sodium 1 % topical gel 2 g topical QID #100 grams 04/24/22 amlodipine 5 mg tablet 5 mg PO BID #180 tabs 05/28/22 atorvastatin 80 mg tablet 80 mg PO QHS #90 tabs 05/28/22 clopidogrel 75 mg tablet (Plavix) 75 mg PO DAILY #90 tabs 05/28/22 empagliflozin 25 mg tablet 25 mg PO DAILY #90 tabs 05/28/22 (Jardiance) gabapentin 300 mg capsule See Rx Instructions .Route 05/28/22 .COMPLEX #90 caps nitroglycerin 0.4 mg sublingual 0.4 mg sublingual PRN #25 tab-caps 05/28/22 tablet (Nitrostat) sildenafil 100 mg tablet 100 mg PO DAILY PRN sexual 08/18/22 activity #5 tabs tamsulosin 0.4 mg capsule 0.4 mg PO DAILY #30 caps 08/18/22 albuterol sulfate 90 mcg/actuation 2 inh inhalation Q6H PRN 08/27/22 aerosol inhaler (Ventolin HFA) bronchospasm #8.5 grams benzonatate 100 mg capsule 100 mg PO TID PRN cough #60 caps 09/04/22 prednisone 20 mg tablet 40 mg PO DAILY #10 tabs 10/06/22 lancets 28 gauge (TRUEplus Lancets) #100 ea 10/07/22 dulaglutide 0.75 mg/0.5 mL 0.75 mg (0.5 mL) subcut QWEEK #6 mL 10/10/22 subcutaneous pen injector (Trulicity) insulin glargine 100 unit/mL (3 47 unit (0.47 mL) subcut HS #45 mL 10/26/22 mL) subcutaneous pen pantoprazole 40 mg tablet,delayed 40 mg PO DAILY #90 tabs 10/26/22 release pen needle, diabetic 33 gauge x #100 ea 11/09/22 (Advocate Pen Needle) Allergies Allergy/AdvReac Type Severity Reaction Status Date / Time venom-honey bee Allergy Severe ANAPHYLAXSI Verified 11/15/22 16:41 [bee venom (honey bee)] S Sulfa (Sulfonamide Allergy Unknown unknown Verified 11/15/22 16:41 Antibiotics) leflunomide [From Arava] AdvReac Intermediate DIARRHEA Verified 11/15/22 16:41 metformin AdvReac Intermediate diarrhea Verified 11/15/22 16:41 General Stated Complaint: EarProblem STAR: 4 Review of Systems Constitutional Constitutional: Reports as per HPI, Denies chills and Denies fever(s) Musculoskeletal Musculoskeletal: Reports as per HPI Integumentary/Breasts Skin/Breast: Reports as per HPI Neurologic Neurologic: Reports as per HPI PFSH All Active Problems (Updated 11/15/22 @ 17:15 by HANNAH Yañez) Cutaneous fungal infection (Acute) Hypoxemia (Acute) COPD with exacerbation (Acute) Chest pain (Acute) Atypical chest pain (Acute) 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) Hypoxemic respiratory failure, chronic (Acute) COPD with acute exacerbation (Acute) Tubular adenoma of colon (Acute) Emphysema lung (Acute) Aortic atherosclerosis (Acute) Cellulitis of ear (Acute) Chronic obstructive lung disease (Chronic) pulmonary fibrosis on chest xray ongoing tobacco use add back budesonide nebs to see if we can improve cough Diabetes mellitus (Chronic 05/05/13) check A1c and creat Gastroesophageal reflux disease (Chronic) Hyperlipidemia (Chronic 05/05/13) Kidney stone (Acute 09/14/14) recurrent x3 on left [facility] [place]12/[place]; F/U Dr. Fair Male erectile disorder (Acute 08/29/13) Palpitations (Acute 11/04/12) multiple PVCs, bradycardia (2013) ([facility] Abraham, echo normal LVEF and stress test neg ischemia) Rheumatoid arthritis (Chronic 05/05/13) [facility] Leon Smoker (Chronic) Tubular adenoma (Acute) 11/20 COLONOSCOPY: ONE TUBULOVILLOUS ADENOMA & TWO TUBULAR ADENOMAS. 05/22/13: DR. Mateusz COPELAND:TUBULAR ADENOMAS 11/13/16: Dr Jian Crump: tublular and tubulovillous adenomas Erectile dysfunction (Chronic) Lipoma (Acute) Depressive disorder (Chronic) RCA occlusion (Acute) 05/25/19 [facility] Bradycardia (Acute) Fatigue (Acute) Chronic knee pain (Acute) Arthritis of knee, right (Acute) Bilateral hip joint arthritis (Acute) Degenerative lumbar spinal stenosis (Acute) Adenomatous polyps (Acute) Serrated adenoma of colon (Acute ~07/2020) Mallet deformity of left ring finger (Acute 11/30/20) with avulsion fracture Anaphylaxis due to hymenoptera venom (Acute) Medical History Acute kidney injury ASCVD (arteriosclerotic cardiovascular disease) (05/05/13) 2 NEW STENTS 04/22 H/O IMI; angioplasty and stent; PR , 02/11; CVA/TIA BPH loc w urin obs/LUTS COPD (chronic obstructive pulmonary disease) CVA (cerebral vascular accident) (11/21/17) Hypertension same meds, good BP here today Myocardial infarction 2020 x2 stents Sepsis Surgical History Colonoscopy - MAC (05/16/13) Colonoscopy - MAC (11/13/16) Colostomy (~2006) TEMP W/ REVISION Excision, Lipoma (05/19/16) posterior neck Hernia Repair, Incisional History of incisional hernia repair History of knee surgery KNEE REPAIR RIGHT RESECTION ANGIOFIBROMA;RIGHT FOOT 02/04/18 Stented coronary artery 05/25/19 [facility]; s/p stent of old stent-KB Family History Mother Essential hypertension Heart disease Stroke Father Stroke Brother Heart disease Family History Diabetes Heart disease Cancer Brother No problems noted. Brother No problems noted. Sister No problems noted. Sister Alcohol abuse Social History Smoking/Tobacco Use Status: Current every day Tobacco Type: cigarettes Tobacco: How many years used: 60 Quit status: has quit before Second Hand Exposure: Yes Smoking risk assessment performed?: Yes Alcohol Intake: former Drug use: Never Substance use type: does not use Household members: family Housing: house Communication Needs: None Do you need help understanding health information?: Rarely Pets and animals: Yes Pets and animals: cat(s) Sexually active: No Current gender identity: male What is your relationship status?: How often do you talk on the phone with friends or family?: three or more times per week How often do you get together with friends or relatives?: twice per week How often do you attend jewish or orthodox services?: decline to answer Do you belong to any clubs or organized social groups?: no Panel score (0-1 are the most socially isolated patients): 1 What type of physical activity do you participate in: walking Duration: < 15 minutes/day Frequency: 1-2 times per week Monika/Zoroastrianism: None Special monika needs: No Seatbelt use: sometimes Helmet use: No Drive intox or ride w/intox wedding transportation driver: No Do you feel safe at home: Yes Do you feel safe in your relationship?: Yes Additional Social history: Lives with roommate in trailer at [place]. 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 4 adult kids in the area. Exam Const General: cooperative, healthy appearing, comfortable, no acute distress and well developed Nutritional Appearance: average body habitus and well nourished Orientation: alert and awake [facility] Head: normal to inspection, normocephalic, atraumatic, no Funes's sign, no contusions, no hematomas, no lacerations, no raccoon eyes, no scalp lesions and no scalp tenderness Ears: hearing grossly normal bilaterally, external ears abnormal, TM's normal bilaterally, mastoids normal and normal mastoids bilaterally Outer ear/TM images: 1. Area of erythema, appears slightly macerated and moist. Mild swelling. Mild discomfort with palpation. No sigifcant swelling, loss of landmarks. Canal WNL. Face and sinus: normal facial exam and sinuses nontender Mouth: oral mucosae normal, lip normal, tongue normal and moist mucous membranes Throat: posterior oropharynx normal, tonsils normal and uvula midline Neck Neck: normal visual inspection, full ROM, no lymphadenopathy and no meningeal signs Resp Effort & Inspection: normal respiratory effort, able to speak in complete sentences and no respiratory distress Auscultation: clear to auscultation bilaterally Cardio Rate: regular rate Rhythm: regular rhythm Heart Sounds: S1 normal and S2 normal Skin General skin exam: erythema (as above) Neuro General: patient alert and patient awake Cognition: normal cognition Speech: speech normal Gait: normal gait Sensory Exam: no sensory deficits noted Psych Appearance: grossly normal and well kempt Mental Status: mental status grossly normal Speech and Movement: speech and movement normal Course Vital Signs Vital signs: Vital Signs Temperature 35.8 C L 11/15/22 16:39 Pulse 63 11/15/22 16:39 Respiratory Rate 18 11/15/22 16:39 Blood Pressure 119/61 11/15/22 16:39 Pulse Oximetry 93 11/15/22 16:39 Temperature 35.8 C L 11/15/22 16:39 Temperature Source Tympanic 11/15/22 16:39 Pulse 63 11/15/22 16:39 Respiratory Rate 18 11/15/22 16:39 Respiratory Effort Normal, Non-Labored 11/15/22 16:42 Blood Pressure 119/61 11/15/22 16:39 Blood Pressure Position Sitting 11/15/22 16:39 Pulse Oximetry 93 11/15/22 16:39 Oxygen Delivery Method Room Air 11/15/22 16:39 Oxygen Flow Rate 0 11/15/22 16:39
[2022-11-15 17:57] VITALS: BP 113/70; PULSE 61; RESP 18; TEMP 36.6; O2SAT 90
== END 2022-11-15 18:10 | disposition home or self-care (01) ==
PROVIDERS: Emergency Provider Physician Assistant; PCP Family Medicine
DX: B36.8 Other specified superficial mycoses (principal); E11.9 Type 2 diabetes mellitus without complications
CPT/HCPCS: 99283

== ENCOUNTER 2022-11-30 02:16 | Outpatient (CLI) | payer MEDICARE, SELFPAY ==
--- NOTE | 2022-11-30 06:30 | DI.CT_ITS ---
Exam(s) CT HEAD WO EXAM: CT HEAD WO CLINICAL HISTORY: headaches x2 weeks (left parietal),R51.9. TECHNIQUE: Imaging Protocol: Axial computed tomography images with coronal and sagittal reformatted images were created and reviewed COMPARISON: CT CT HEAD CERVICAL SPINE WO from 10/05/2022 FINDINGS: There are no skull fractures. There is no fluid in the visualized paranasal sinuses. There is no evidence of intracranial hemorrhage, mass effect, or shift of midline structures. There are no extra-axial fluid collections. The ventricles are not enlarged or shifted and there is no blo od within the ventricular system nor within the basal cisterns. Again noted is bilateral periventricular hypodensity consistent chronic small vessel disease there is a tiny unchanged lacunar infarct left periventricular white matter. Also benign-appearing parenchym al calcification on the left side also unchanged. IMPRESSION: No acute intracranial findings on this noninfused CT scan of the brain. Chronic small-vessel white matter ischemic changes again noted. No obvious acute territorial infarct . Clinically indicated follow-up MRI can be performed. RADIATION DOSE DELIVERED: 755.22mGy.cm Total DLP DATA REPOSITORY: All CT scans at this facility are submitted to the National Radiology Data Registry (NRDR) Dose Index Registry (DIR) with the [employer] (ACR). RADIATION OPTIMIZATION: All CT scans at this facility use at least one of these dose optimization te chniques: automated exposure control; mA and/or kV adjustment per patient size (includes targeted exa ms where dose is matched to clinical indication); or iterative reconstruction.
== END 2022-11-30 02:36 ==
LOC: DI 02:17
PROVIDERS: PCP Family Medicine; Visit Provider Family Medicine
DX: R51.9 Headache, unspecified (principal); R90.82 White matter disease, unspecified; I67.89 Other cerebrovascular disease
CPT/HCPCS: 70450

== ENCOUNTER 2022-12-01 20:55 | Emergency (ER) | payer MEDICARE, SELFPAY ==
[2022-12-01 21:10] VITALS: BP 107/67; PULSE 80; RESP 18; TEMP 37; O2SAT 94
[2022-12-01] MEDS: Fluorescein STRIPS 100/BOX 1 MG OP (21:28)
--- NOTE | 2022-12-01 21:38 | ED.GENADUL_ITS ---
Discharge Plan Disposition Patient Disposition: Home Discharge Details Clinical Impression: Corneal abrasion Primary Care Provider: Mike Burns ED Provider: Leona De Santiago Home Meds and New Rx's Prescriptions: Continued aspirin 81 mg tablet,chewable 81 mg PO DAILY amlodipine 5 mg tablet 5 mg PO BID Qty: 180 3RF atorvastatin 80 mg tablet 80 mg PO QHS Qty: 90 3RF clopidogrel [Plavix] 75 mg tablet 75 mg PO DAILY Qty: 90 4RF Jardiance 25 mg tablet 25 mg PO DAILY Qty: 90 3RF nitroglycerin [Nitrostat] 0.4 mg tablet, sublingual 0.4 mg Sublingual PRN Qty: 25 11RF Rx Instructions: 1 TAB SL PRN losartan 50 mg tablet 100 mg PO DAILY Qty: 180 3RF sildenafil 100 mg tablet 100 mg PO DAILY PRN (Reason: sexual activity) Qty: 5 12RF Rx Instructions: administer 30 minutes to 4 hours before activity tamsulosin 0.4 mg capsule 0.4 mg PO DAILY Qty: 30 12RF clotrimazole-betamethasone 1-0.05 % cream 1 applic topical BID Qty: 45 0RF Rx Instructions: Apply pea-sized amount twice daily to penile skin as directed. 2 weeks only unless directed otherwise (DME) Space Chamber Plus 1 EACH spacer 1 ea Miscellaneous PRN Qty: 1 infliximab [Remicade] 100 MG recon soln 1,000 mg IV .[id number] Patient Comments: 05/31/15 Jacqui at [facility] Rheumatology reports: 1000mg IV infusion every 6 months. Done at [facility]. DL 03/05/17 q 4 months. si budesonide 0.5 mg/2 mL suspension for nebulization 0.5 mg Inhalation BID Qty: 60 11RF (DME) FreeStyle Test Strip 1 strip Miscellaneous DAILY Qty: 300 4RF Rx Instructions: test three times/day fluticasone propionate 50 mcg/actuation spray,suspension 2 spray NS DAILY Qty: 1 8RF bebtelovimab 175 mg/2 mL (87.5 mg/mL) solution 175 mg IV ONCE Qty: 2 0RF Rx Instructions: as a single dose bupropion HCl 150 mg tablet sustained-release 12 hr 150 mg PO BID Qty: 180 3RF ezetimibe 10 mg tablet 10 mg PO DAILY Qty: 90 4RF albuterol sulfate [Ventolin HFA] 90 mcg/actuation HFA aerosol inhaler 2 inh INHALATION Q6H PRN (Reason: bronchospasm) Qty: 8.5 3RF benzonatate 100 mg capsule 100 mg PO TID PRN (Reason: cough) Qty: 60 0RF (DME) lancets [TRUEplus Lancets] 28 gauge misc See Rx Instructions .Route Qty: 100 3RF Rx Instructions: test once/day Trulicity 0.75 mg/0.5 mL pen injector 0.75 mg SC QWEEK Qty: 6 3RF pantoprazole 40 mg tablet,delayed release (DR/EC) 40 mg PO DAILY Qty: 90 3RF Rx Instructions: TAKE 6 HOURS APART FROM YOUR PLAVIX insulin glargine 100 unit/mL (3 mL) insulin pen 47 unit SC HS Qty: 45 3RF (DME) pen needle, diabetic [Advocate Pen Needle] 33 gauge x 5/32 needle See Rx Instructions .ROUTE .MEDSUPPLY Qty: 100 3RF Rx Instructions: inject once/day gabapentin 300 mg capsule See Rx Instructions .ROUTE .COMPLEX Qty: 90 5RF Dose Instruction: TAKE ONE CAPSULE BY MOUTH THREE TIMES A DAY Rx Instructions: TAKE ONE CAPSULE BY MOUTH THREE TIMES A DAY acetaminophen 650 MG tablet extended release 650 mg PO Q8H PRN (Reason: Pain) Qty: 20 0RF epinephrine 0.3 mg/0.3 mL auto-injector 0.3 mg IM ONCE Qty: 2 0RF Rx Instructions: as a single dose; may repeat once ondansetron HCl 4 mg tablet 1 mg PO Q8H PRN cyclosporine [Restasis] 0.05 % dropperette 1 drp BID Patient Comments: INSTILL 1 DROP IN EACH EYE TWO TIMES A DAY loratadine 10 mg capsule 10 mg PO DAILY Qty: 10 0RF diclofenac sodium 1 % gel 2 g topical QID Qty: 100 0RF Rx Instructions: apply to single elbow, wrist or hand; for hand includes palm/fingers/back of hand prednisone 20 mg Tablet 40 mg PO DAILY Qty: 10 0RF Discharge Instructions Instructions: David (ED) Additional Instructions: Please follow up with primary care physician regarding the sebaceous cyst on your face Using the eyedrops every 6 hours for the next 5 to 7 days Warm compresses, 5 minutes every 2-3 hours Return earlier should you have any worsening complaints Should you have of symptoms persisting greater than 2 to 3 days I recommend you follow-up with the [facility], [phone] Referrals: Mike Burns MD [Primary Care Provider] - Discharge Data Discharge Date/Time-TO BE ENTERED AT DEPARTURE: 12/01/22 22:24 Medical Decision Making This 77-year-old gentleman presents with left eye irritation, on exam he has a suspected hordeolum that is actively draining, he has conjunctivitis secondary to the drainage likely, placed on ciprofloxacin drops Return precautions reviewed and patient expressed understanding Discharged home in stable condition with stable vitals, should be referral supplied Visual acuity 20/30 left eye, 20/20 right eye, Medical Records Medical records reviewed: Yes I reviewed the patient's medical records. HPI General Date/Time Provider Initiated Documentation: 12/01/22 21:14 . HPI Narrative: This 77-year-old gentleman presents with left eye irritation and drainage since yesterday afternoon. States that his eye feels scratchy. He denies any significant vision change. He denies any headache or fever. States he removed an eyelash that looked infected yesterday per patient. Denies any corrective lenses. Related Data Home Medications Medication Instructions Recorded Confirmed inhalational spacing device (Space ##1 05/27/15 11/25/22 Chamber Plus) infliximab 100 mg intravenous 1,000 mg IV .[id number] 05/31/15 11/25/22 solution (Remicade) acetaminophen 650 mg 650 mg PO Q8H PRN Pain ##20 04/30/17 11/25/22 tablet,extended release budesonide 0.5 mg/2 mL suspension 0.5 mg (2 mL) inhalation BID #60 mL 11/08/20 11/25/22 for nebulization epinephrine 0.3 mg/0.3 mL 0.3 mg (0.3 mL) IM ONCE #2 ea 03/12/21 11/25/22 injection, auto-injector aspirin 81 mg chewable tablet 81 mg PO DAILY 05/27/21 11/25/22 loratadine 10 mg capsule 10 mg PO DAILY #10 caps 12/28/21 11/25/22 blood sugar diagnostic (FreeStyle #300 strips 05/20/22 03/15/23 Test strips) fluticasone propionate 50 2 spray NS DAILY #1 g 01/30/22 11/25/22 mcg/actuation nasal spray,suspension bebtelovimab 175 mg/2 mL (87.5 175 mg (2 mL) IV ONCE #2 mL 02/04/22 11/25/22 mg/mL) intravenous solution (Unapp) bupropion HCl 150 mg tablet,12 hr 150 mg PO BID #180 tabs 03/02/22 11/25/22 sustained-release clotrimazole-betamethasone 1 1 applic topical BID #45 grams 03/04/22 11/25/22 %-0.05 % topical cream cyclosporine 0.05 % eye drops in a 1 drp BID 03/19/22 11/25/22 dropperette (Restasis) ondansetron HCl 4 mg tablet 1 mg PO Q8H PRN 03/19/22 11/25/22 losartan 50 mg tablet 100 mg PO DAILY #180 tabs 03/25/22 11/25/22 ezetimibe 10 mg tablet 10 mg PO DAILY #90 tabs 04/17/22 11/25/22 diclofenac sodium 1 % topical gel 2 g topical QID #100 grams 04/24/22 11/25/22 amlodipine 5 mg tablet 5 mg PO BID #180 tabs 05/28/22 11/25/22 atorvastatin 80 mg tablet 80 mg PO QHS #90 tabs 05/28/22 11/25/22 clopidogrel 75 mg tablet (Plavix) 75 mg PO DAILY #90 tabs 05/28/22 11/25/22 empagliflozin 25 mg tablet 25 mg PO DAILY #90 tabs 05/28/22 11/25/22 (Jardiance) nitroglycerin 0.4 mg sublingual 0.4 mg sublingual PRN #25 tab-caps 05/28/22 11/25/22 tablet (Nitrostat) sildenafil 100 mg tablet 100 mg PO DAILY PRN sexual 08/18/22 11/25/22 activity #5 tabs tamsulosin 0.4 mg capsule 0.4 mg PO DAILY #30 caps 08/18/22 11/25/22 albuterol sulfate 90 mcg/actuation 2 inh inhalation Q6H PRN 08/27/22 11/25/22 aerosol inhaler (Ventolin HFA) bronchospasm #8.5 grams benzonatate 100 mg capsule 100 mg PO TID PRN cough #60 caps 09/04/22 11/25/22 prednisone 20 mg tablet 40 mg PO DAILY #10 tabs 10/06/22 11/25/22 lancets 28 gauge (TRUEplus Lancets) #100 ea 10/07/22 11/25/22 dulaglutide 0.75 mg/0.5 mL 0.75 mg (0.5 mL) subcut QWEEK #6 mL 10/10/22 11/25/22 subcutaneous pen injector (Trulicity) insulin glargine 100 unit/mL (3 47 unit (0.47 mL) subcut HS #45 mL 10/26/22 11/25/22 mL) subcutaneous pen pantoprazole 40 mg tablet,delayed 40 mg PO DAILY #90 tabs 10/26/22 11/25/22 release pen needle, diabetic 33 gauge x #100 ea 11/09/22 11/25/22 5/32 (Advocate Pen Needle) gabapentin 300 mg capsule See Rx Instructions .Route 11/28/22 .COMPLEX #90 caps Previous Rx's Medication Instructions Recorded acetaminophen 650 mg 650 mg PO Q8H PRN Pain ##20 04/30/17 tablet,extended release budesonide 0.5 mg/2 mL suspension 0.5 mg (2 mL) inhalation BID #60 mL 11/08/20 for nebulization epinephrine 0.3 mg/0.3 mL 0.3 mg (0.3 mL) IM ONCE #2 ea 03/12/21 injection, auto-injector loratadine 10 mg capsule 10 mg PO DAILY #10 caps 12/28/21 blood sugar diagnostic (FreeStyle #300 strips 01/30/22 Test strips) fluticasone propionate 50 2 spray NS DAILY #1 g 01/30/22 mcg/actuation nasal spray,suspension bebtelovimab 175 mg/2 mL (87.5 175 mg (2 mL) IV ONCE #2 mL 02/04/22 mg/mL) intravenous solution (Unapp) bupropion HCl 150 mg tablet,12 hr 150 mg PO BID #180 tabs 03/02/22 sustained-release clotrimazole-betamethasone 1 1 applic topical BID #45 grams 03/04/22 %-0.05 % topical cream losartan 50 mg tablet 100 mg PO DAILY #180 tabs 03/25/22 ezetimibe 10 mg tablet 10 mg PO DAILY #90 tabs 04/17/22 diclofenac sodium 1 % topical gel 2 g topical QID #100 grams 04/24/22 amlodipine 5 mg tablet 5 mg PO BID #180 tabs 05/28/22 atorvastatin 80 mg tablet 80 mg PO QHS #90 tabs 05/28/22 clopidogrel 75 mg tablet (Plavix) 75 mg PO DAILY #90 tabs 05/28/22 empagliflozin 25 mg tablet 25 mg PO DAILY #90 tabs 05/28/22 (Jardiance) nitroglycerin 0.4 mg sublingual 0.4 mg sublingual PRN #25 tab-caps 05/28/22 tablet (Nitrostat) sildenafil 100 mg tablet 100 mg PO DAILY PRN sexual 08/18/22 activity #5 tabs tamsulosin 0.4 mg capsule 0.4 mg PO DAILY #30 caps 08/18/22 albuterol sulfate 90 mcg/actuation 2 inh inhalation Q6H PRN 08/27/22 aerosol inhaler (Ventolin HFA) bronchospasm #8.5 grams benzonatate 100 mg capsule 100 mg PO TID PRN cough #60 caps 09/04/22 prednisone 20 mg tablet 40 mg PO DAILY #10 tabs 10/06/22 lancets 28 gauge (TRUEplus Lancets) #100 ea 10/07/22 dulaglutide 0.75 mg/0.5 mL 0.75 mg (0.5 mL) subcut QWEEK #6 mL 10/10/22 subcutaneous pen injector (Trulicity) insulin glargine 100 unit/mL (3 47 unit (0.47 mL) subcut HS #45 mL 10/26/22 mL) subcutaneous pen pantoprazole 40 mg tablet,delayed 40 mg PO DAILY #90 tabs 10/26/22 release pen needle, diabetic 33 gauge x #100 ea 11/09/22 (Advocate Pen Needle) gabapentin 300 mg capsule See Rx Instructions .Route 11/28/22 .COMPLEX #90 caps Allergies Allergy/AdvReac Type Severity Reaction Status Date / Time venom-honey bee Allergy Severe ANAPHYLAXSI Verified 11/25/22 13:12 [bee venom (honey bee)] S Sulfa (Sulfonamide Allergy Unknown unknown Verified 11/25/22 13:12 Antibiotics) leflunomide [From Arava] AdvReac Intermediate DIARRHEA Verified 11/25/22 13:12 metformin AdvReac Intermediate diarrhea Verified 11/25/22 13:12 General Stated Complaint: EyeProblem STAR: 4 PFSH All Active Problems (Updated 12/01/22 @ 21:43 by HANNAH Huynh) Corneal abrasion (Acute) Headache (Acute) Cutaneous fungal infection (Acute) Hypoxemia (Acute) COPD with exacerbation (Acute) Chest pain (Acute) Atypical chest pain (Acute) 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) Hypoxemic respiratory failure, chronic (Acute) COPD with acute exacerbation (Acute) Tubular adenoma of colon (Acute) Emphysema lung (Acute) Aortic atherosclerosis (Acute) Cellulitis of ear (Acute) Chronic obstructive lung disease (Chronic) pulmonary fibrosis on chest xray ongoing tobacco use add back budesonide nebs to see if we can improve cough Diabetes mellitus (Chronic 05/05/13) check A1c and creat Gastroesophageal reflux disease (Chronic) Hyperlipidemia (Chronic 05/05/13) Kidney stone (Acute 09/14/14) recurrent x3 on left [facility] Urology 10/12/16-[facility]; F/U Dr. Fair Male erectile disorder (Acute 08/29/13) Palpitations (Acute 11/04/12) multiple PVCs, bradycardia (2013) ([facility], Dr Abraham, echo normal LVEF and stress test neg ischemia) Rheumatoid arthritis (Chronic 05/05/13) [facility], Dr Leon Smoker (Chronic) Tubular adenoma (Acute) 11/20 COLONOSCOPY: ONE TUBULOVILLOUS ADENOMA & TWO TUBULAR ADENOMAS. 05/22/13: DR. Mateusz COPELAND:TUBULAR ADENOMAS 11/13/16: Dr Jian Crump: tublular and tubulovillous adenomas Erectile dysfunction (Chronic) Lipoma (Acute) Depressive disorder (Chronic) RCA occlusion (Acute) 05/25/19 [facility] Bradycardia (Acute) Fatigue (Acute) Chronic knee pain (Acute) Arthritis of knee, right (Acute) Bilateral hip joint arthritis (Acute) Degenerative lumbar spinal stenosis (Acute) Adenomatous polyps (Acute) Serrated adenoma of colon (Acute ~07/2020) Mallet deformity of left ring finger (Acute 11/30/20) with avulsion fracture Anaphylaxis due to hymenoptera venom (Acute) Medical History Acute kidney injury ASCVD (arteriosclerotic cardiovascular disease) (05/05/13) 2 NEW STENTS 04/22 H/O IMI; angioplasty and stent; SD , 02/11; CVA/TIA BPH loc w urin obs/LUTS COPD (chronic obstructive pulmonary disease) CVA (cerebral vascular accident) (11/21/17) Hypertension same meds, good BP here today Myocardial infarction 2020 x2 stents Sepsis Surgical History Colonoscopy - MAC (05/16/13) Colonoscopy - MAC (11/13/16) Colostomy (~2006) TEMP W/ REVISION Excision, Lipoma (05/19/16) posterior neck Hernia Repair, Incisional History of incisional hernia repair History of knee surgery KNEE REPAIR RIGHT RESECTION ANGIOFIBROMA;RIGHT FOOT 02/04/18 Stented coronary artery 05/25/19 [facility]; s/p stent of old stent-KB Family History Mother Essential hypertension Heart disease Stroke Father Stroke Brother Heart disease Family History Diabetes Heart disease Cancer Brother No problems noted. Brother No problems noted. Sister No problems noted. Sister Alcohol abuse Social History Smoking/Tobacco Use Status: Current every day Tobacco Type: cigarettes Tobacco: How many years used: 60 Quit status: has quit before Second Hand Exposure: Yes Smoking risk assessment performed?: Yes Alcohol Intake: former Drug use: Never Substance use type: does not use Household members: family Housing: house Communication Needs: None Do you need help understanding health information?: Rarely Pets and animals: Yes Pets and animals: cat(s) Sexually active: No Current gender identity: male What is your relationship status?: How often do you talk on the phone with friends or family?: three or more times per week How often do you get together with friends or relatives?: twice per week How often do you attend confucianist or amish services?: decline to answer Do you belong to any clubs or organized social groups?: no Panel score (0-1 are the most socially isolated patients): 1 What type of physical activity do you participate in: walking Duration: < 15 minutes/day Frequency: 1-2 times per week Monika/Synagogue: None Special monika needs: No Seatbelt use: sometimes Helmet use: No Drive intox or ride w/intox residential recycle driver: No Do you feel safe at home: Yes Do you feel safe in your relationship?: Yes Additional Social history: Lives with roommate in trailer at [facility]. 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 4 adult kids in the area. Exam Eyes Eyes/upper lids images: 1. Hordeolum noted, purulent drainage, no significant swelling or proptosis, mildly injected conjunctiva, extraocular muscles intact Resp Effort & Inspection: normal respiratory effort Cardio Rate: regular rate Course Vital Signs Vital signs: Vital Signs Temperature 37 C 12/01/22 21:10 Pulse 80 12/01/22 21:10 Respiratory Rate 18 12/01/22 21:10 Blood Pressure 107/67 12/01/22 21:10 Pulse Oximetry 94 12/01/22 21:10 Temperature 37 C 12/01/22 21:10 Temperature Source Tympanic 12/01/22 21:10 Pulse 80 12/01/22 21:10 Respiratory Rate 18 12/01/22 21:10 Respiratory Effort Normal 12/01/22 21:23 Blood Pressure 107/67 12/01/22 21:10 Blood Pressure Position Sitting 12/01/22 21:10 Pulse Oximetry 94 12/01/22 21:10 Oxygen Delivery Method Room Air 12/01/22 21:10 Oxygen Flow Rate 0 12/01/22 21:10 Pain Level 8 12/01/22 21:10
[2022-12-01 21:49] VITALS: BP 116/68; PULSE 68; RESP 20; O2SAT 93
[2022-12-01] MEDS: Ciprofloxacin 0.3% 2.5 ML BTL OD (22:12)
== END 2022-12-01 22:24 | disposition home or self-care (01) ==
PROVIDERS: Emergency Provider Physician Assistant; PCP Family Medicine
DX: S05.02XA Injury of conjunctiva and corneal abrasion without foreign body, left eye, initial encounter (principal); X58.XXXA Exposure to other specified factors, initial encounter
CPT/HCPCS: 99283; 99284

== ENCOUNTER → 2022-12-17 09:41 | Outpatient (BNVA) | payer MEDICARE, SELFPAY | PROVIDERS: PCP Family Medicine; Referring Provider Family Medicine; Visit Provider Nurse Practitioner Gerontology | DX: B37.42 Candidal balanitis (principal); N40.1 Benign prostatic hyperplasia with lower urinary tract symptoms; R39.89 Other symptoms and signs involving the genitourinary system | CPT/HCPCS: 51798; 81003; 99214 ==

== ENCOUNTER 2023-01-27 01:50 | Outpatient (CLI) | payer MEDICARE, SELFPAY ==
--- NOTE | 2023-01-27 10:19 | DI.US_ITS ---
APPROVED REPORT EXAM: Comprehensive 2D, Doppler, and color-flow Echocardiogram Patient Location: Out-Patient Bilingual Sales Assistant: James Lechuga RDMS, RVT Indications: SOB, preop, atherosclerotic heart disease, HTN, acute NM, smoker Other Information Study Quality: Adequate. Technically limited study due to body habitus. Conclusion Normal left ventricular wall thickness and chamber size. There is mildly reduced left ventricular sy stolic function with an ejection fraction of 45%, global hypokinesis Normal right ventricular size and systolic function Both atria are normal in size Aortic valve is trileaflet and mildly sclerotic without stenosis or regurgitation Mild mitral annular calcification. Trace mitral regurgitation. Wall motion Left Ventricle The left ventricle is normal size. Left ventricular systolic function is mildly decreased. There is n ormal left ventricular wall thickness. There is global hypokinesis of the left ventricle. There is no ventricular septal defect visualized. LVEF is 45%. Right Ventricle The right ventricle is normal size. Right ventricular systolic function is grossly normal. Unable to assess PA pressure. Atria The left atrium size is normal. The right atrium size is normal. The interatrial septum is intact wit h no evidence for an atrial septal defect. Aortic Valve The aortic valve is mildly sclerotic Aortic valve is trileaflet. There is no aortic valvular stenosis . No aortic regurgitation is present. Mitral Valve Mild mitral annular calcification. No evidence of mitral valve stenosis. Trace mitral regurgitation. Tricuspid Valve The tricuspid valve is normal in structure. There is no tricuspid valve stenosis. Trace tricuspid reg urgitation. Pulmonic Valve The pulmonary valve is normal in structure. There is no pulmonic valvular stenosis. Trace pulmonic re gurgitation. Great Vessels The aortic root is normal in size. Ascending aorta is not well visualized. Aortic arch is not well vi sualized. IVC is normal in size and collapses >50% with inspiration. Pericardium There is no pericardial effusion. 2D Dimensions IVSD d PLAX 0.60 cm M: 0.6-1.2 LV Vol A2C d MOD 116.8 mL LVPW d PLAX 0.61 cm M: 0.6 - 1.2 LV Vol A4C d MOD 150.1 mL LVID d PLAX 6.02 cm M: 4.2 - 5.8 LA vol/ BSA A4C s A-L 26.6 mL/m2 LVDs 4.85 cm M: 2.5 - 4.0 LA Area A4C s MOD 18.30 cm2 Ao Root d 3.52 cm M: 3.1 - 3.7 LV EF A4C MOD 34.7 % LV EF Teichholz 38.0 % LV EF A2C MOD 35.4 % LVEF (Quinn's) 34.46 % M: 52 - 72 LV EF Biplane MOD 34.5 % LV Volume 102.78 mL M: 62 - 150 SV 47.18 mL LV Volume Index 51.39 mL/m2 M: 34 - 74 SV Index 23.66 mL/m2 LV Vol Biplane MOD 136.9 mL FS 18.70 % M-Mode TAPSE 1.81 cm (M/F) >1.7 LV Diastology MV E' medial 0.064 (>0.07 m/s) E/A Ratio 1.0 LV E/e MED 11.30 (<14) MV E Vmax 0.73 (0.4-1.3 m/s) MV E' lateral 0.093 (>0.1 m/s) MV A Vmax 0.75 (0.4-1.3 m/s) LV E/e LAT 7.85 (<14) MV E/A Ratio 0.95 MV E/E' medial 11.34 MV E/E' lateral 7.86 Aortic Valve LVOT Area 3.99 cm2 AoV Area Vmax 2.97 cm2 LVOT Vmax 0.93 m/s AoV Area/ BSA (Vmax) 1.49 cm2/m2 LVOT Mean Ariel. 0.59 m/s BARNEY Mean Ariel. 2.76 cm2 LVOT Peak Grad 3.5 mmHg BARNEY Mean Ariel. Index 1.38 cm2/m2 LVOT Mean Grad 1.7 mmHg LVOT VTI 0.198 m LVOT Diam s 2.25 cm AoV Vmax 1.25 m/s Velocity Ratio 0.74 AoV Mean Ariel. 0.86 m/s AoV Peak Grad 6.3 mmHg LVOT SV 78.74 mL AoV Mean Grad 3.3 mmHg AoV VTI 0.251 m AoV Area VTI 3.14 cm2 AoV Area/ BSA (VTI) 1.58 cm/m2 Mitral Valve MV DT 318 (160-240 msec) MV PHT 92 msec MV Area PHT 2.39 cm2 Pulmonary Valve PV Vmax 0.76 (0.5-1.5 m/s) RVOT Peak Gr. 0.72 mmHg PV Peak Grad 2.3 mmHg RVOT Vmax 0.42 m/s PV Mean Grad 1.3 mmHg PV VTI 0.128 m Tricuspid Valve RA Pressure 3.00 mmHg
== END 2023-01-27 02:10 ==
LOC: DI 01:50
PROVIDERS: PCP Family Medicine; Visit Provider Surgery
DX: D12.6 Benign neoplasm of colon, unspecified (principal); D36.9 Benign neoplasm, unspecified site; E11.9 Type 2 diabetes mellitus without complications; E78.5 Hyperlipidemia, unspecified; F17.200 Nicotine dependence, unspecified, uncomplicated; I10 Essential (primary) hypertension; I21.9 Acute myocardial infarction, unspecified; I25.10 Atherosclerotic heart disease of native coronary artery without angina pectoris; I63.9 Cerebral infarction, unspecified; I70.0 Atherosclerosis of aorta; J44.9 Chronic obstructive pulmonary disease, unspecified; K21.9 Gastro-esophageal reflux disease without esophagitis; M06.9 Rheumatoid arthritis, unspecified; Z12.11 Encounter for screening for malignant neoplasm of colon
CPT/HCPCS: 93306

== ENCOUNTER → 2023-02-01 08:46 | Outpatient (BNVA) | payer MEDICARE, SELFPAY | PROVIDERS: PCP Family Medicine; Referring Provider Family Medicine; Visit Provider Surgery | DX: Z12.11 Encounter for screening for malignant neoplasm of colon (principal); D12.6 Benign neoplasm of colon, unspecified | CPT/HCPCS: 99212 ==

== ENCOUNTER 2023-02-05 22:44 | Outpatient (REF) | payer MEDICARE, SELFPAY | END 2023-02-05 22:45 | disposition home or self-care (01) | LOC: LBN 22:44 | PROVIDERS: PCP Family Medicine; Visit Provider Nurse Practitioner Family | DX: L02.413 Cutaneous abscess of right upper limb; L98.8 Other specified disorders of the skin and subcutaneous tissue | CPT/HCPCS: 87077; 87070; 87186; 87205 ==

== ENCOUNTER 2023-02-26 23:18 | Emergency (ER) | payer MEDICARE, SELFPAY ==
[2023-02-26] VITALS (7 sets, daily range): BP systolic 96–116; BP diastolic 46–52; PULSE 61–83; RESP 18–30; TEMP 37.1; O2SAT 85–95
--- NOTE | 2023-02-26 23:15 | RT.EKG_ITS ---
APPROVED REPORT Exam: Resting ECG Reason for Exam: dizziness Patient Location: E HR:69 bpm ECG Measurements Heart Rate 69 AXIS KS 224 P 22 QRSd 95 QRS -42 QT 396 T 24 QTc 425 Conclusion Sinus rhythm...normal P axis, V-rate 60- 99 Prolonged KS interval...KS >220, V-rate 50- 90 Inferior infarct, old...Q >35mS, II III aVF
--- NOTE | 2023-02-26 23:30 | DI.CT_ITS ---
Exam(s) CT HEAD WO EXAM: CT HEAD WO CLINICAL HISTORY: syncope. TECHNIQUE: Imaging Protocol: Axial computed tomography images with coronal and sagittal reformatted images were created and reviewed COMPARISON: CT CT HEAD WO from 11/30/2022 FINDINGS: There are no skull fractures. There is no fluid in the visualized paranasal sinuses. There is no evidence of intracranial hemorrhage, mass effect, or shift of midline structures. There are no extra-axial fluid collections. The ventricles are not enlarged or shifted and there is no blo od within the ventricular system nor within the basal cisterns. Mild periventricular hypodensity consistent chronic small vessel disease. IMPRESSION: No acute intracranial findings on this noninfused CT scan of the brain. RADIATION DOSE DELIVERED: 745.69mGy.cm Total DLP DATA REPOSITORY: All CT scans at this facility are submitted to the National Radiology Data Registry (NRDR) Dose Index Registry (DIR) with the [employer] (ACR). RADIATION OPTIMIZATION: All CT scans at this facility use at least one of these dose optimization te chniques: automated exposure control; mA and/or kV adjustment per patient size (includes targeted exa ms where dose is matched to clinical indication); or iterative reconstruction.
--- NOTE | 2023-02-26 23:40 | DI.RAD_ITS ---
Exam(s) XR CHEST 1V IN DI DEPT EXAM: XR CHEST 1V IN DI DEPT CLINICAL HISTORY: syncope. TECHNIQUE: 2D digital imaging was performed. COMPARISON: CR,XR XR CHEST 2V PA LATERAL from 03/19/2022 FINDINGS: Single AP portable view. Heart size is upper normal. The mediastinum is not widened. Extensive bilateral relatively symmetrical interstitial markings are noted throughout both lungs, unc hanged from March 2022 and probably related to chronic interstitial disease. There are no pleural eff usions. No new confluent infiltrates. IMPRESSION: Extensive bilateral interstitial disease, unchanged from March 2022 probably related to pulmonary fibr osis. DATA REPOSITORY: RADIATION DOSE DELIVERED:
--- NOTE | 2023-02-26 23:41 | W.ED.GENAD ---
Discharge Plan Disposition Patient Disposition: Home Discharge Details Clinical Impression: Syncope, Hypotension Primary Care Provider: Mike Burns ED Provider: Yony Cavanaugh Home Meds and New Rx's Prescriptions: Held losartan 50 mg tablet 100 mg PO DAILY Qty: 180 3RF Hold Instructions: Resume on 02/28/23. sildenafil 100 mg tablet 100 mg PO DAILY PRN (Reason: sexual activity) Qty: 5 12RF Hold Instructions: Resume on 03/01/23. Rx Instructions: administer 30 minutes to 4 hours before activity No Action aspirin 81 mg tablet,chewable 81 mg PO DAILY amlodipine 5 mg tablet 5 mg PO BID Qty: 180 3RF atorvastatin 80 mg tablet 80 mg PO QHS Qty: 90 3RF clopidogrel [Plavix] 75 mg tablet 75 mg PO DAILY Qty: 90 4RF Jardiance 25 mg tablet 25 mg PO DAILY Qty: 90 3RF nitroglycerin [Nitrostat] 0.4 mg tablet, sublingual 0.4 mg Sublingual PRN Qty: 25 11RF Rx Instructions: 1 TAB SL PRN fluticasone propionate 50 mcg/actuation spray,suspension 2 spray NS DAILY Qty: 1 8RF triamcinolone acetonide 0.1 % cream 1 applic topical BID PRN (Reason: pinna rash) Qty: 30 0RF erythromycin 5 mg/gram (0.5 %) ointment 0.5 inch ophthalmic (eye) QID Qty: 3.5 0RF Rx Instructions: apply 0.5in strip to left eye every 6 hours (4x daily) x 5 days mupirocin 2 % ointment 1 applic topical BID Qty: 15 0RF Rx Instructions: apply twice daily for 7 days clotrimazole-betamethasone 1-0.05 % cream 1 applic topical BID Qty: 45 0RF Rx Instructions: Apply pea-sized amount twice daily to penile skin as directed. 2 weeks only unless directed otherwise polyethylene glycol 3350 17 gram/dose powder 238 g PO ONCE Qty: 238 0RF Rx Instructions: take per colonoscopy instructions bisacodyl [Dulcolax (bisacodyl)] 5 mg tablet,delayed release (DR/EC) 5 mg PO ONCE Qty: 4 0RF Rx Instructions: take per colonoscopy instructions bisacodyl [Dulcolax (bisacodyl)] 5 mg tablet,delayed release (DR/EC) 5 mg PO ONCE Qty: 4 0RF Rx Instructions: take per colonoscopy instructions (DME) Space Chamber Plus 1 EACH spacer 1 ea Miscellaneous PRN Qty: 1 infliximab [Remicade] 100 MG recon soln 1,000 mg IV .[id number] Patient Comments: 05/31/15 Jacqui at [facility] Rheumatology reports: 1000mg IV infusion every 6 months. Done at [facility]. DL 03/05/17 q 4 months. si budesonide 0.5 mg/2 mL suspension for nebulization 0.5 mg Inhalation BID Qty: 60 11RF (DME) FreeStyle Test Strip 1 strip Miscellaneous DAILY Qty: 300 4RF Rx Instructions: test three times/day ezetimibe 10 mg tablet 10 mg PO DAILY Qty: 90 4RF albuterol sulfate [Ventolin HFA] 90 mcg/actuation HFA aerosol inhaler 2 inh INHALATION Q6H PRN (Reason: bronchospasm) Qty: 8.5 3RF (DME) lancets [TRUEplus Lancets] 28 gauge misc See Rx Instructions .Route Qty: 100 3RF Rx Instructions: test once/day Trulicity 0.75 mg/0.5 mL pen injector 0.75 mg SC QWEEK Qty: 6 3RF pantoprazole 40 mg tablet,delayed release (DR/EC) 40 mg PO DAILY Qty: 90 3RF Rx Instructions: TAKE 6 HOURS APART FROM YOUR PLAVIX insulin glargine 100 unit/mL (3 mL) insulin pen 47 unit SC HS Qty: 45 3RF (DME) pen needle, diabetic [Advocate Pen Needle] 33 gauge x 5/32 needle See Rx Instructions .ROUTE .MEDSUPPLY Qty: 100 3RF Rx Instructions: inject once/day gabapentin 300 mg capsule See Rx Instructions .ROUTE .COMPLEX Qty: 90 5RF Dose Instruction: TAKE ONE CAPSULE BY MOUTH THREE TIMES A DAY Rx Instructions: TAKE ONE CAPSULE BY MOUTH THREE TIMES A DAY tamsulosin 0.4 mg capsule 0.8 mg PO DAILY Qty: 90 3RF bupropion HCl 150 mg tablet sustained-release 12 hr 150 mg PO BID Qty: 180 3RF acetaminophen 650 MG tablet extended release 650 mg PO Q8H PRN (Reason: Pain) Qty: 20 0RF epinephrine 0.3 mg/0.3 mL auto-injector 0.3 mg IM ONCE Qty: 2 0RF Rx Instructions: as a single dose; may repeat once cyclosporine [Restasis] 0.05 % dropperette 1 drp BID Patient Comments: INSTILL 1 DROP IN EACH EYE TWO TIMES A DAY loratadine 10 mg capsule 10 mg PO DAILY Qty: 10 0RF diclofenac sodium 1 % gel 2 g topical QID Qty: 100 0RF Rx Instructions: apply to single elbow, wrist or hand; for hand includes palm/fingers/back of hand Discharge Instructions Instructions: Syncope (ED) Additional Instructions: You have elected to decline admission to the hospital for observation. The cause of your symptoms are unidentified but may be related to the medication that you took for erectile dysfunction please hold this medication as well as your blood pressure medication for at least 24 hours. Please notify your primary care provider that you have been having low blood pressures and that perhaps an evaluation of your medications would be warranted. You may return to the emergency department at any time for any symptoms to complete your evaluation and observation. Medical Decision Making Medical Records Medical records reviewed: Yes I reviewed the patient's medical records. Medical records narrative: This patient presents with symptoms consistent with syncope, most likely due to _combination of blood pressure medicine and phosphodiesterase inhibitor. Differential diagnosis includes reflexive syncope (vasovagal). Low suspicion for orthostatic syncope given lack of dehydration, no evidence of acute life threatening hemorrhage (stable hgb). Presentation not consistent with seizures given short time course, no postictal state, no seizure activity. Low suspicion for acute neurologic catastrophes to include ICH given lack of trauma, risk factors for bleeding, or stroke given no focal neuro deficits. Low suspicion for vascular catastrophes to include PE, thoracic aortic dissection, AAA rupture. Presentation not consistent with acute life threatening arrhythmia, structural heart disease, electrical conduction abnormalities, or ACS given no chest pain.However, given age, cardiovascular risk factors, history & physical, will workup observe in the emergency department for an extended period of time. Consider admission to hospital if his blood pressure does not improve or if he is symptomatic in any way. ECG Data Attestation: I personally reviewed and interpreted this ECG (s) as follows: (Prolonged DC interval. No significant dysrhythmia no evidence of ischemia.) HPI General Date/Time Provider Initiated Documentation: 02/26/23 23:38. HPI Narrative: Patient states that he had a normal day he did some entire changing had no symptoms went into a store asymptomatic and then quickly became diaphoretic and nearly passed out. 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 Did not completely lose consciousness no evidence of seizure and again no head trauma. Patient recovered within the next hour or 90 minutes but was concerned that his blood pressure may still be low. Comments that last couple times he is gone to the clinic they have noted that his blood pressure is low. Has a history of cardiac disease as well as diabetes COPD and is a heavy smoker. Ultimately the patient gives a history that he ingested a phosphodiesterase inhibitor for erectile dysfunction earlier in the day. Related Data Home Medications Medication Instructions Recorded Confirmed inhalational spacing device (Space ##1 05/27/15 02/26/23 Chamber Plus) infliximab 100 mg intravenous 1,000 mg IV .[id number] 05/31/15 02/26/23 solution (Remicade) acetaminophen 650 mg 650 mg PO Q8H PRN Pain ##20 04/30/17 02/26/23 tablet,extended release budesonide 0.5 mg/2 mL suspension 0.5 mg (2 mL) inhalation BID #60 mL 11/08/20 02/26/23 for nebulization epinephrine 0.3 mg/0.3 mL 0.3 mg (0.3 mL) IM ONCE #2 ea 03/12/21 02/26/23 injection, auto-injector aspirin 81 mg chewable tablet 81 mg PO DAILY 05/27/21 02/26/23 loratadine 10 mg capsule 10 mg PO DAILY #10 caps 12/28/21 02/26/23 blood sugar diagnostic (FreeStyle #300 strips 01/30/22 02/26/23 Test strips) clotrimazole-betamethasone 1 1 applic topical BID #45 grams 03/04/22 02/26/23 %-0.05 % topical cream cyclosporine 0.05 % eye drops in a 1 drp BID 03/19/22 02/26/23 dropperette (Restasis) losartan 50 mg tablet 100 mg PO DAILY #180 tabs 03/25/22 02/26/23 ezetimibe 10 mg tablet 10 mg PO DAILY #90 tabs 04/17/22 02/26/23 diclofenac sodium 1 % topical gel 2 g topical QID #100 grams 04/24/22 02/26/23 amlodipine 5 mg tablet 5 mg PO BID #180 tabs 05/28/22 02/26/23 atorvastatin 80 mg tablet 80 mg PO QHS #90 tabs 05/28/22 02/26/23 clopidogrel 75 mg tablet (Plavix) 75 mg PO DAILY #90 tabs 05/28/22 02/26/23 empagliflozin 25 mg tablet 25 mg PO DAILY #90 tabs 05/28/22 02/26/23 (Jardiance) nitroglycerin 0.4 mg sublingual 0.4 mg sublingual PRN #25 tab-caps 05/28/22 02/26/23 tablet (Nitrostat) sildenafil 100 mg tablet 100 mg PO DAILY PRN sexual 08/18/22 02/26/23 activity #5 tabs albuterol sulfate 90 mcg/actuation 2 inh inhalation Q6H PRN 08/27/22 02/26/23 aerosol inhaler (Ventolin HFA) bronchospasm #8.5 grams lancets 28 gauge (TRUEplus Lancets) #100 ea 10/07/22 02/26/23 dulaglutide 0.75 mg/0.5 mL 0.75 mg (0.5 mL) subcut QWEEK #6 mL 10/10/22 02/26/23 subcutaneous pen injector (Trulicity) insulin glargine 100 unit/mL (3 47 unit (0.47 mL) subcut HS #45 mL 10/26/22 02/26/23 mL) subcutaneous pen pantoprazole 40 mg tablet,delayed 40 mg PO DAILY #90 tabs 10/26/22 02/26/23 release pen needle, diabetic 33 gauge x #100 ea 11/09/22 02/26/23 5/32 (Advocate Pen Needle) gabapentin 300 mg capsule See Rx Instructions .Route 11/28/22 02/26/23 .COMPLEX #90 caps fluticasone propionate 50 2 spray NS DAILY #1 g 12/10/22 02/26/23 mcg/actuation nasal spray,suspension triamcinolone acetonide 0.1 % 1 applic topical BID PRN pinna 12/10/22 02/26/23 topical cream rash #30 grams tamsulosin 0.4 mg capsule 0.8 mg PO DAILY #90 caps 01/19/23 02/26/23 bisacodyl 5 mg tablet,delayed 5 mg PO ONCE colonscopy bowel prep 02/01/23 02/26/23 release (Dulcolax (bisacodyl)) #4 tabs bisacodyl 5 mg tablet,delayed 5 mg PO ONCE colonscopy bowel prep 02/01/23 02/26/23 release (Dulcolax (bisacodyl)) #4 tabs polyethylene glycol 3350 17 238 g PO ONCE colonoscopy prep 02/01/23 02/26/23 gram/dose oral powder #238 grams erythromycin 5 mg/gram (0.5 %) eye 0.5 inch ophthalmic (eye) QID #3.5 02/02/23 02/26/23 ointment grams mupirocin 2 % topical ointment 1 applic topical BID #15 grams 02/05/23 02/26/23 bupropion HCl 150 mg tablet,12 hr 150 mg PO BID #180 tabs 02/16/23 02/26/23 sustained-release Previous Rx's Medication Instructions Recorded acetaminophen 650 mg 650 mg PO Q8H PRN Pain ##20 04/30/17 tablet,extended release budesonide 0.5 mg/2 mL suspension 0.5 mg (2 mL) inhalation BID #60 mL 11/08/20 for nebulization epinephrine 0.3 mg/0.3 mL 0.3 mg (0.3 mL) IM ONCE #2 ea 03/12/21 injection, auto-injector loratadine 10 mg capsule 10 mg PO DAILY #10 caps 12/28/21 blood sugar diagnostic (FreeStyle #300 strips 01/30/22 Test strips) clotrimazole-betamethasone 1 1 applic topical BID #45 grams 03/04/22 %-0.05 % topical cream losartan 50 mg tablet 100 mg PO DAILY #180 tabs 03/25/22 ezetimibe 10 mg tablet 10 mg PO DAILY #90 tabs 04/17/22 diclofenac sodium 1 % topical gel 2 g topical QID #100 grams 04/24/22 amlodipine 5 mg tablet 5 mg PO BID #180 tabs 05/28/22 atorvastatin 80 mg tablet 80 mg PO QHS #90 tabs 05/28/22 clopidogrel 75 mg tablet (Plavix) 75 mg PO DAILY #90 tabs 05/28/22 empagliflozin 25 mg tablet 25 mg PO DAILY #90 tabs 05/28/22 (Jardiance) nitroglycerin 0.4 mg sublingual 0.4 mg sublingual PRN #25 tab-caps 05/28/22 tablet (Nitrostat) sildenafil 100 mg tablet 100 mg PO DAILY PRN sexual 08/18/22 activity #5 tabs albuterol sulfate 90 mcg/actuation 2 inh inhalation Q6H PRN 08/27/22 aerosol inhaler (Ventolin HFA) bronchospasm #8.5 grams lancets 28 gauge (TRUEplus Lancets) #100 ea 10/07/22 dulaglutide 0.75 mg/0.5 mL 0.75 mg (0.5 mL) subcut QWEEK #6 mL 10/10/22 subcutaneous pen injector (Trulicity) insulin glargine 100 unit/mL (3 47 unit (0.47 mL) subcut HS #45 mL 10/26/22 mL) subcutaneous pen pantoprazole 40 mg tablet,delayed 40 mg PO DAILY #90 tabs 10/26/22 release pen needle, diabetic 33 gauge x #100 ea 11/09/22 (Advocate Pen Needle) gabapentin 300 mg capsule See Rx Instructions .Route 11/28/22 .COMPLEX #90 caps fluticasone propionate 50 2 spray NS DAILY #1 g 12/10/22 mcg/actuation nasal spray,suspension triamcinolone acetonide 0.1 % 1 applic topical BID PRN pinna 12/10/22 topical cream rash #30 grams tamsulosin 0.4 mg capsule 0.8 mg PO DAILY #90 caps 01/19/23 bisacodyl 5 mg tablet,delayed 5 mg PO ONCE colonscopy bowel prep 02/01/23 release (Dulcolax (bisacodyl)) #4 tabs bisacodyl 5 mg tablet,delayed 5 mg PO ONCE colonscopy bowel prep 02/01/23 release (Dulcolax (bisacodyl)) #4 tabs polyethylene glycol 3350 17 238 g PO ONCE colonoscopy prep 02/01/23 gram/dose oral powder #238 grams erythromycin 5 mg/gram (0.5 %) eye 0.5 inch ophthalmic (eye) QID #3.5 02/02/23 ointment grams mupirocin 2 % topical ointment 1 applic topical BID #15 grams 02/05/23 bupropion HCl 150 mg tablet,12 hr 150 mg PO BID #180 tabs 02/16/23 sustained-release Allergies Allergy/AdvReac Type Severity Reaction Status Date / Time venom-honey bee Allergy Severe ANAPHYLAXSI Verified 02/15/23 09:53 [bee venom (honey bee)] S Sulfa (Sulfonamide Allergy Unknown unknown Verified 02/15/23 09:53 Antibiotics) leflunomide [From Arava] AdvReac Intermediate DIARRHEA Verified 02/15/23 09:53 metformin AdvReac Intermediate diarrhea Verified 02/15/23 09:53 General Stated Complaint: GenMedical STAR: 2 Review of Systems Narrative: CONST: Negative for fever, body aches and chills. HENT: Negative for neck pain/stiffness, headache, congestion, sore throat, swelling. EYES: Negative for discharge/pain or vision changes. RESP: Negative for cough/hemoptysis and shortness of breath. CV: Negative chest pain, difficulty breathing, palpitations. ABD: Negative pain, nausea, vomiting. : Negative increase frequency, dysuria, blood in urine or stool. MUSC: Negative for muscle aches, edema. SKIN: Negative rash, lesions/sores. NEURO: Negative headache, ss. PFSH All Active Problems (Updated 02/27/23 @ 02:14 by Yony Cavanaugh MD) Chronic obstructive lung disease (Chronic) pulmonary fibrosis on chest xray ongoing tobacco use add back budesonide nebs to see if we can improve cough Diabetes mellitus (Chronic 05/05/13) check A1c and creat Gastroesophageal reflux disease (Chronic) Hyperlipidemia (Chronic 05/05/13) Kidney stone (Acute 09/14/14) recurrent x3 on left [facility] Urology 10/12/16-[facility]; F/U Dr. Fair Male erectile disorder (Acute 08/29/13) Palpitations (Acute 11/04/12) multiple PVCs, bradycardia (2013) ([facility], Dr Abraham, echo normal LVEF and stress test neg ischemia) Rheumatoid arthritis (Chronic 05/05/13) [facility], Dr Leon Smoker (Chronic) Tubular adenoma (Acute) 11/20 COLONOSCOPY: ONE TUBULOVILLOUS ADENOMA & TWO TUBULAR ADENOMAS. 05/22/13: DR. Mateusz COPELAND:TUBULAR ADENOMAS 11/13/16: Dr Jian Crump: tublular and tubulovillous adenomas Erectile dysfunction (Chronic) Lipoma (Acute) Depressive disorder (Chronic) RCA occlusion (Acute) 05/25/19 [facility] Bradycardia (Acute) Fatigue (Acute) Chronic knee pain (Acute) Arthritis of knee, right (Acute) Bilateral hip joint arthritis (Acute) Degenerative lumbar spinal stenosis (Acute) Adenomatous polyps (Acute) Serrated adenoma of colon (Acute ~07/2020) Mallet deformity of left ring finger (Acute 11/30/20) with avulsion fracture Anaphylaxis due to hymenoptera venom (Acute) Cellulitis of ear (Acute) Aortic atherosclerosis (Acute) Emphysema lung (Acute) Tubular adenoma of colon (Acute) COPD with acute exacerbation (Acute) 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) Cardiomyopathy (Acute) Syncope (Chronic) Hypotension (Acute) Medical History Acute kidney injury ASCVD (arteriosclerotic cardiovascular disease) (05/05/13) 2 NEW STENTS 04/22 H/O IMI; angioplasty and stent; [place] , 02/11; CVA/TIA BPH loc w urin obs/LUTS COPD (chronic obstructive pulmonary disease) CVA (cerebral vascular accident) (11/21/17) Eczema Hypertension same meds, good BP here today Hypoxemia Myocardial infarction 2020 x2 stents Sepsis Surgical History Colonoscopy - MAC (05/16/13) Colonoscopy - MAC (11/13/16) Colostomy (~2006) TEMP W/ REVISION Excision, Lipoma (05/19/16) posterior neck Hernia Repair, Incisional History of incisional hernia repair History of knee surgery KNEE REPAIR RIGHT RESECTION ANGIOFIBROMA;RIGHT FOOT 02/04/18 Stented coronary artery 05/25/19 [facility]; s/p stent of old stent-KB Family History Mother Essential hypertension Heart disease Stroke Father Stroke Brother Heart disease Family History Diabetes Heart disease Cancer Brother No problems noted. Brother No problems noted. Sister No problems noted. Sister Alcohol abuse Social History Smoking/Tobacco Use Status: Current every day Tobacco Type: cigarettes Tobacco: How many years used: 60 Quit status: has quit before Second Hand Exposure: Yes Smoking risk assessment performed?: Yes Alcohol Intake: former Drug use: Never Substance use type: does not use Household members: family Housing: house Communication Needs: None Do you need help understanding health information?: Rarely Pets and animals: Yes Pets and animals: cat(s) Sexually active: No Current gender identity: male What is your relationship status?: How often do you talk on the phone with friends or family?: three or more times per week How often do you get together with friends or relatives?: twice per week How often do you attend voodoo or cheondoism services?: decline to answer Do you belong to any clubs or organized social groups?: no Panel score (0-1 are the most socially isolated patients): 1 What type of physical activity do you participate in: walking Duration: < 15 minutes/day Frequency: 1-2 times per week Monika/Confucianist: None Special monika needs: No Seatbelt use: sometimes Helmet use: No Drive intox or ride w/intox rental car ferry driver: No Do you feel safe at home: Yes Do you feel safe in your relationship?: Yes Additional Social history: Lives with roommate in trailer at [facility]. Retired [employer]. 4 adult kids in the area. Exam Narrative Exam Narrative: GENERAL APPEARANCE NAD, activity normal for age, well developed/ well nourished, no cyanosis, pallor, or diaphoresis. EYES lids/conjunctiva normal. EARS/NOSE/THROAT Mucous membranes moist, nares normal, lips/teeth normal uvula midline without oral pharyngeal erythema, exudate or swelling No lymphangitis/lymphedema. HEAD/NECK normocephalic atraumatic, no facial trauma, neck is supple. RESPIRATORY respiratory effort normal, speaks in full sentences, no tripod position, no accessory muscle use. Lungs clear to auscultation without rhonchi, wheezes, rales CARDIAC Regular rate and rhythm, no edema. ABDOMINAL Soft, ND/NT. No evidence of fluid wave. No pulsatile masses on exam, rebound tenderness, Wells sign or pain over Mcburney's point. MUSCLES/EXTREMITIES No abnormal range of motion, no swelling. SKIN Warm, pink and dry. No rashes, dermatoses, petechiae or lesions. NEUROLOGICAL Speech is clear and appropriate. Normal level of consciousness. Gait and coordination are normal. 5/5 strength in all extremities. Normal coordination cranial nerves II through XII intact PSYCH Normal mood and affect. Judgement/competence is appropriate Course Reevaluation(s) Time: 00:46 Reevaluation: Chest x-ray demonstrates chronic lung disease. CT scan of the brain demonstrates some chronic small vessel white matter changes. Patient's blood pressure is improved and he is no longer hypotensive. Given his multiple risk factors I recommended to the patient to be admitted to the hospital to be observed overnight. Patient is declining this plan. Understands that no clear etiology of his symptoms have been identified and that he could have a repeat event of syncope with associated underlying cause. Patient is capable of making medical decisions and understands the added risk of not being observed overnight and is electing to be discharged home. Time: 02:11 Reevaluation #2: Multiple attempts to have the patient continue to stay in the emergency department for an extended period of observation have failed. Patient is requesting discharge at this time. He continues to be asymptomatic however orthostatic blood pressure readings demonstrate hypotension upon standing. We have made it clear that the patient is not to drive and that he should contact a friend or family member to come pick him up. We have exhausted all options to continue to keep this patient to the emergency department for observation and he can be released of his own accord. Vital Signs Vital signs: Vital Signs Temperature 37.1 C 02/26/23 23:25 Pulse 83 02/26/23 23:25 Respiratory Rate 30 H 02/26/23 23:25 Blood Pressure 116/46 L 02/26/23 23:25 Pulse Oximetry 92 02/26/23 23:25 Temperature 37.1 C 02/26/23 23:25 Temperature Source Temporal Artery Scan 02/26/23 23:25 Pulse 83 02/26/23 23:25 Respiratory Rate 30 H 02/26/23 23:25 Respiratory Effort Normal 02/26/23 23:25 Blood Pressure 116/46 L 02/26/23 23:25 Blood Pressure Position Supine 02/26/23 23:25 Pulse Oximetry 92 02/26/23 23:25 Oxygen Delivery Method Room Air 02/26/23 23:25 Oxygen Flow Rate 0 02/26/23 23:25 Pain Level 0 02/26/23 23:25
[2023-02-26] MEDS: Normal Saline 1,000 ML 1000 ML IV (23:42)
--- NOTE | 2023-02-26 23:47 | NUR.NOTE ---
Nursing Note: The pt stated he went out tonight after taking viagra, and that he forgot that it causes him to feel dizzy, added he forgot to mention to the ED provider. ED provider made aware
[2023-02-26 23:53] LABS: Abs Immature Grans 0.06 10^3/uL (0.0-0.06); Absolute Basophil Count 0.06 10^3/uL (0.0-0.2); Absolute Eosinophil Count 0.35 10^3/uL (0.0-0.7); Absolute Lymphocyte Count 1.81 10^3/uL (1.2-3.4); Absolute Monocyte Count 1.23 10^3/uL (0.1-0.8); Absolute Neutrophil Count 6.78 10^3/uL (1.2-6.7); Basophils % 0.6; Eosinophils % 3.4; HGB 15.3 g/dL (13.5-17.5); Immature Grans % 0.6; Lymphocytes % 17.6; MCH 31.2 pg (27.0-33.0); MCHC 33.3 % (32.0-36.0); MCV 94 fL (80-95); MPV 10.6 fL (8.0-11.0); Neutrophils % 65.8; Platelet Count 216 10^3/uL (130-400); RBC 4.91 10^6/uL (4.36-5.78); RDW 14.7 % (11.8-14.1); RDW-SD 51.1 fL; WBC 10.29 10^3/uL (4.4-10.8)
[2023-02-27] VITALS (10 sets, daily range): BP systolic 71–126; BP diastolic 43–67; PULSE 57–119; RESP 16–32; TEMP 36.7; O2SAT 86–94
[2023-02-27 00:10] LABS: ALT 26 U/L (16-63); AST 12 U/L (15-37); Albumin 3.3 g/dL (3.4-5.0); Alkaline Phosphatase 95 U/L (46-116); Anion Gap 7.5 mmol/L (3-11); BUN 31 mg/dL (7-18); Bilirubin, Total 0.4 mg/dL (0.2-1.0); CO2 28.5 mmol/L (21.0-32.0); CREATININE 1.2 mg/dL (0.70-1.30); Calcium 9.3 mg/dL (8.5-10.1); Chloride 106 mmol/L (98-107); Estimated GFR 63.07 (mL/min/1.73m2); Glucose 95 mg/dL (74-106); Magnesium 2.2 mg/dL (1.8-2.4); Potassium 4.3 mmol/L (3.5-5.1); Sodium 142 mmol/L (136-145); Total Protein 6.8 g/dL (6.4-8.2); Troponin I < 50 ng/L (<or=60)
--- NOTE | 2023-02-27 00:34 | DI.VRAD_ITS ---
PROCEDURE INFORMATION: Exam: CT Head Without Contrast Exam date and time: 02/27/2023 12:06 AM Age: 77 years old Clinical indication: Syncope and collapse TECHNIQUE: Imaging protocol: Computed tomography of the head without contrast. Radiation optimization: All CT scans at this facility use at least one of these dose optimization techniques: automated exposure control; mA and/or kV adjustment per patient size (includes targeted exams where dose is matched to clinical indication); or iterative reconstruction. COMPARISON: CT HEAD WO 11/30/2022 7:56 AM FINDINGS: Brain: Age-appropriate mild atrophy. Mild chronic small vessel deep white matter ischemic disease. No intracranial hemorrhage. No large territory acute CVA. No mass or mass effect. No cerebral edema. Cerebral ventricles: No hydrocephaly. Paranasal sinuses: Visualized sinuses are unremarkable. No fluid levels. Mastoid air cells: Visualized mastoid air cells are well aerated. Bones/joints: Unremarkable. No acute fracture. Soft tissues: Unremarkable. IMPRESSION: 1. No acute intracranial findings. 2. Age-appropriate atrophy and chronic small vessel deep white matter ischemia. Dictated and Authenticated by: Zach Chamberlain MD. Ordering:LISSETTE Bhakta MD
--- NOTE | 2023-02-27 00:37 | DI.VRAD_ITS ---
PROCEDURE INFORMATION: Exam: XR Chest Exam date and time: 02/27/2023 12:09 AM Age: 77 years old Clinical indication: Other: Syncope TECHNIQUE: Imaging protocol: Radiologic exam of the chest. Views: 1 view. COMPARISON: CR XR CHEST 2V PA LATERAL 03/19/2022 7:45 PM FINDINGS: Lungs: Chronic interstitial lung changes. No acute consolidation. No significant change since 03/19/2022. Pleural spaces: Blunting of the costophrenic angles bilaterally suggesting minor pleural effusions. Heart/Mediastinum: Mild cardiac enlargement. Bones/joints: Degenerative skeletal changes. IMPRESSION: 1. Chronic interstitial lung disease. 2. Blunting of the costophrenic angle suggesting minor pleural effusions bilaterally. 3. Mild cardiac enlargement. 4. No acute lung infiltrates. No aaron edema. Dictated and Authenticated by: Zach Chamberlain MD. Ordering:LISSETTE Bhakta MD
--- NOTE | 2023-02-27 00:57 | NUR.NOTE ---
Nursing Note: Pts BP low along with SpO2 pt states he would like to go home, ambulated to and from the BR, BP in 70s Provider made aware pt receiving more IV fluids, returned to 2L [place], pt states heavy smoker
--- NOTE | 2023-02-27 02:09 | NUR.NOTE ---
Nursing Note: Pt denies any s/s of low BP pt refusing to stay in the ED and hospital Provider aware pt demanding to leave IV site removed
== END 2023-02-27 02:17 | disposition home or self-care (01) ==
PROVIDERS: Emergency Provider Emergency Medicine; PCP Family Medicine
DX: R55 Syncope and collapse (principal); I95.9 Hypotension, unspecified
CPT/HCPCS: 80053; 93005; 96360; 99285; 70450; 71045; 83735; 84484; 85025; 93010; 99284

== ENCOUNTER 2023-03-04 01:55 | Outpatient (RCR) | payer MEDICARE, SELFPAY ==
[2022-11-11] VITALS: BP 130/68; PULSE 90; RESP 20; TEMP 35.5
[2023-03-04] VITALS (10 sets, daily range): BP systolic 115–151; BP diastolic 67–79; PULSE 47–59; RESP 17–18; TEMP 36.6–37; O2SAT 93–97
[2023-03-04] MEDS: Normal Saline Flush 10 ML SYR IVP (08:00)
[2023-03-04] MEDS: Acetaminophen 325 MG TAB 650 MG PO (08:00)
[2023-03-04] MEDS: diphenhydrAMINE 25 MG CAP PO (08:00)
[2023-03-04] MEDS: riTUXimab-PVVR 1,000 MG in Normal Saline 150 ML 62.5 MG IVPB (08:19)
== END 2023-03-12 23:59 | disposition home or self-care (01) ==
LOC: INF 01:55
PROVIDERS: PCP Family Medicine; Visit Provider Nurse Practitioner Acute Care
DX: M06.9 Rheumatoid arthritis, unspecified (principal)
CPT/HCPCS: 96365; 96366; 99283; 99284; Q5119

== ENCOUNTER 2023-03-04 21:09 | Emergency (ER) | payer MEDICARE, SELFPAY ==
[2023-03-04 21:11] VITALS: BP 146/64; PULSE 70; RESP 16; TEMP 36.3; O2SAT 92
--- NOTE | 2023-03-04 21:14 | ED.GENADUL_ITS ---
Discharge Plan Disposition Patient Disposition: Home Condition: Good Discharge Details Clinical Impression: Acute left otitis media, Cellulitis of scalp Primary Care Provider: Mike Burns ED Provider: Nghia Cabrera Home Meds and New Rx's Prescriptions: New doxycycline hyclate 100 mg tablet 100 mg PO BID Qty: 20 0RF No Action aspirin 81 mg tablet,chewable 81 mg PO DAILY amlodipine 5 mg tablet 5 mg PO BID Qty: 180 3RF atorvastatin 80 mg tablet 80 mg PO QHS Qty: 90 3RF clopidogrel [Plavix] 75 mg tablet 75 mg PO DAILY Qty: 90 4RF Jardiance 25 mg tablet 25 mg PO DAILY Qty: 90 3RF nitroglycerin [Nitrostat] 0.4 mg tablet, sublingual 0.4 mg Sublingual PRN Qty: 25 11RF Rx Instructions: 1 TAB SL PRN losartan 50 mg tablet 100 mg PO DAILY Qty: 180 3RF Hold Instructions: Resume on 02/28/23. fluticasone propionate 50 mcg/actuation spray,suspension 2 spray NS DAILY Qty: 1 8RF triamcinolone acetonide 0.1 % cream 1 applic topical BID PRN (Reason: pinna rash) Qty: 30 0RF erythromycin 5 mg/gram (0.5 %) ointment 0.5 inch ophthalmic (eye) QID Qty: 3.5 0RF Rx Instructions: apply 0.5in strip to left eye every 6 hours (4x daily) x 5 days mupirocin 2 % ointment 1 applic topical BID Qty: 15 0RF Rx Instructions: apply twice daily for 7 days sildenafil 100 mg tablet 100 mg PO DAILY PRN (Reason: sexual activity) Qty: 5 12RF Hold Instructions: Resume on 03/01/23. Rx Instructions: administer 30 minutes to 4 hours before activity clotrimazole-betamethasone 1-0.05 % cream 1 applic topical BID Qty: 45 0RF Rx Instructions: Apply pea-sized amount twice daily to penile skin as directed. 2 weeks only unless directed otherwise polyethylene glycol 3350 17 gram/dose powder 238 g PO ONCE Qty: 238 0RF Rx Instructions: take per colonoscopy instructions bisacodyl [Dulcolax (bisacodyl)] 5 mg tablet,delayed release (DR/EC) 5 mg PO ONCE Qty: 4 0RF Rx Instructions: take per colonoscopy instructions bisacodyl [Dulcolax (bisacodyl)] 5 mg tablet,delayed release (DR/EC) 5 mg PO ONCE Qty: 4 0RF Rx Instructions: take per colonoscopy instructions ciprofloxacin-dexamethasone [Ciprodex] 0.3-0.1 % drops,suspension 4 drp otic (ear) BID 7 Days Qty: 7.5 0RF Rx Instructions: instill 4 drops into left ear every 12 hours x 7 days ciprofloxacin HCl 500 mg tablet 500 mg PO Q12H Qty: 14 0RF (DME) Space Chamber Plus 1 EACH spacer 1 ea Miscellaneous PRN Qty: 1 infliximab [Remicade] 100 MG recon soln 1,000 mg IV .[id number] Patient Comments: 05/31/15 Jacqui at [facility] Rheumatology reports: 1000mg IV infusion every 6 months. Done at [facility]. DL 03/05/17 q 4 months. si budesonide 0.5 mg/2 mL suspension for nebulization 0.5 mg Inhalation BID Qty: 60 11RF (DME) FreeStyle Test Strip 1 strip Miscellaneous DAILY Qty: 300 4RF Rx Instructions: test three times/day ezetimibe 10 mg tablet 10 mg PO DAILY Qty: 90 4RF albuterol sulfate [Ventolin HFA] 90 mcg/actuation HFA aerosol inhaler 2 inh INHALATION Q6H PRN (Reason: bronchospasm) Qty: 8.5 3RF (DME) lancets [TRUEplus Lancets] 28 gauge misc See Rx Instructions .Route Qty: 100 3RF Rx Instructions: test once/day Trulicity 0.75 mg/0.5 mL pen injector 0.75 mg SC QWEEK Qty: 6 3RF pantoprazole 40 mg tablet,delayed release (DR/EC) 40 mg PO DAILY Qty: 90 3RF Rx Instructions: TAKE 6 HOURS APART FROM YOUR PLAVIX insulin glargine 100 unit/mL (3 mL) insulin pen 47 unit SC HS Qty: 45 3RF (DME) pen needle, diabetic [Advocate Pen Needle] 33 gauge x 5/32 needle See Rx Instructions .ROUTE .MEDSUPPLY Qty: 100 3RF Rx Instructions: inject once/day gabapentin 300 mg capsule See Rx Instructions .ROUTE .COMPLEX Qty: 90 5RF Dose Instruction: TAKE ONE CAPSULE BY MOUTH THREE TIMES A DAY Rx Instructions: TAKE ONE CAPSULE BY MOUTH THREE TIMES A DAY tamsulosin 0.4 mg capsule 0.8 mg PO DAILY Qty: 90 3RF bupropion HCl 150 mg tablet sustained-release 12 hr 150 mg PO BID Qty: 180 3RF acetaminophen 650 MG tablet extended release 650 mg PO Q8H PRN (Reason: Pain) Qty: 20 0RF epinephrine 0.3 mg/0.3 mL auto-injector 0.3 mg IM ONCE Qty: 2 0RF Rx Instructions: as a single dose; may repeat once cyclosporine [Restasis] 0.05 % dropperette 1 drp BID Patient Comments: INSTILL 1 DROP IN EACH EYE TWO TIMES A DAY loratadine 10 mg capsule 10 mg PO DAILY Qty: 10 0RF diclofenac sodium 1 % gel 2 g topical QID Qty: 100 0RF Rx Instructions: apply to single elbow, wrist or hand; for hand includes palm/fingers/back of hand Discharge Instructions Instructions: Cellulitis (ED), Ear Infection (ED) Additional Instructions: At this time you do have a continued infection in your left ear. Please apply the wick into your left ear as shown to you by the nursing staff. Please place the weekend, and apply the drops. Leave the wick in there is no for a few hours or until your next dose of eardrops. Please continue to take the Cipro that you are already prescribed by Andrei. This is appropriate treatment for your ear. In addition to this we will be adding a new medication called doxycycline, please take this as directed. Do not take it on an empty stomach as it can cause nausea and vomiting. Avoid excessive sun exposure as you can become more sensitive to the sun while on the medication. Please take a probiotic supplement to prevent any diarrhea while on these 2 different antibiotics. Please take 1000 mg of Tylenol every 6-8 hours as needed for pain. This is the maximum dose. If you notice any worsening of your symptoms, or any new symptoms such as vomiting, diarrhea, fever, chills, shortness of breath, chest pain, numbness, weakness, or fainting , please return immediately to the emergency department for reevaluation. Please follow up with your primary care provider as soon as possible for reassessment and reevaluation. As always, it was a pleasure participating in your medical care today. Referrals: Andrei Dick RN [NURSE PRACTITIONER] - Andrei Dick, WIRE MILL OPERATOR [NURSE PRACTITIONER] - Mike Burns MD [Primary Care Provider] - Medical Decision Making 77-year-old male with a past medical history of cerebrovascular accid ent, diabetes on insulin, COPD, rheumatoid arthritis on infliximab, coronary artery disease with previous stents, most recent being this past fall, COPD, GERD, tension, high cholesterol, previous kidney stones, who presents today for evaluation of left ear drainage and infection on the back of his scalp. Patient states that over the past few days he has had a mild left-sided ear infection. He was seen and assessed for treatment and was prescribed Cipro drops, as well as oral ciprofloxacin. He has been taking this for the last day or so as directed, however he has noticed continued effusion for the left ear. In addition to this he noticed a small spot which she thought may have been a tick on the back of his scalp and today it was squeezed quite vigorously by his and a small amount of pus came out. He presents today as he has pain in that area and is concerned for continued or worsening infection. He denies any fever or chills. He does have mild ache in the area of the scalp where the lesion was. He denies any other generalized headache. He denies any numbness or tingling. He denies any confusion or vision change. No other complaints at this time. No other modifying factors. Exam demonstrates evidence of left otitis media with effusion and active drainage, as well as mild cellulitis at the posterior occiput with mild amount of serosanguineous fluid likely secondary to the vigorous squeezing that was performed at home by the patient's significant other. I do feel that the initial treatment that was performed before is certainly appropriate however we will add to need additional coverage for potential tickborne illness as well as MRSA coverage. We will add doxycycline. In addition to this we will get the earwicks for the patient's left ear for treatment of the otitis media with effusion and drainage to get better directed coverage. No evidence of meningitis or abscess or no signs of neurologic deficit suggestive of a cord related etiology at this time clinically on exam. Will give Tylenol as well and recommend continued ice and Tylenol and avoiding any squeezing of the neck or skin to try to perform any popping. Discussed red flags for which return. I have extensively reviewed the treatment plan and discharge instructions with the patient. I have addressed all patient concerns at this time. The patient was made aware of what symptoms to monitor for that would warrant a return to the emergency department. Discussed the plan with the patient, they demonstrate verbal understanding and agreement with our assessment and plan at this time. The documentation in this chart was dictated using WhatsApp dictation software. Please excuse any dictation errors. HPI General Date/Time Provider Initiated Documentation: 03/04/23 21:13 . HPI Narrative: 77-year-old male with a past medical history of cerebrovascular accide nt, diabetes on insulin, COPD, rheumatoid arthritis on infliximab, coronary artery disease with previous stents, most recent being this past fall, COPD, GERD, tension, high cholesterol, previous kidney stones, who presents today for evaluation of left ear drainage and infection on the back of his scalp. Patient states that over the past few days he has had a mild left-sided ear infection. He was seen and assessed for treatment and was prescribed Cipro drops, as well as oral ciprofloxacin. He has been taking this for the last day or so as directed, however he has noticed continued effusion for the left ear. In addition to this he noticed a small spot which she thought may have been a tick on the back of his scalp and today it was squeezed quite vigorously by his and a small amount of pus came out. He presents today as he has pain in that area and is concerned for continued or worsening infection. He denies any fever or chills. He does have mild ache in the area of the scalp where the lesion was. He denies any other generalized headache. He denies any numbness or tingling. He denies any confusion or vision change. No other complaints at this time. No other modifying factors. Related Data Home Medications Medication Instructions Recorded Confirmed inhalational spacing device (Space ##1 05/27/15 02/26/23 Chamber Plus) infliximab 100 mg intravenous 1,000 mg IV .[id number] 05/31/15 02/26/23 solution (Remicade) acetaminophen 650 mg 650 mg PO Q8H PRN Pain ##20 04/30/17 02/26/23 tablet,extended release budesonide 0.5 mg/2 mL suspension 0.5 mg (2 mL) inhalation BID #60 mL 11/08/20 02/26/23 for nebulization epinephrine 0.3 mg/0.3 mL 0.3 mg (0.3 mL) IM ONCE #2 ea 03/12/21 02/26/23 injection, auto-injector aspirin 81 mg chewable tablet 81 mg PO DAILY 05/27/21 02/26/23 loratadine 10 mg capsule 10 mg PO DAILY #10 caps 12/28/21 02/26/23 blood sugar diagnostic (FreeStyle #300 strips 01/30/22 02/26/23 Test strips) clotrimazole-betamethasone 1 1 applic topical BID #45 grams 03/04/22 02/26/23 %-0.05 % topical cream cyclosporine 0.05 % eye drops in a 1 drp BID 03/19/22 02/26/23 dropperette (Restasis) losartan 50 mg tablet 100 mg PO DAILY #180 tabs 03/25/22 02/26/23 ezetimibe 10 mg tablet 10 mg PO DAILY #90 tabs 04/17/22 02/26/23 diclofenac sodium 1 % topical gel 2 g topical QID #100 grams 04/24/22 02/26/23 amlodipine 5 mg tablet 5 mg PO BID #180 tabs 05/28/22 02/26/23 atorvastatin 80 mg tablet 80 mg PO QHS #90 tabs 05/28/22 02/26/23 clopidogrel 75 mg tablet (Plavix) 75 mg PO DAILY #90 tabs 05/28/22 02/26/23 empagliflozin 25 mg tablet 25 mg PO DAILY #90 tabs 05/28/22 02/26/23 (Jardiance) nitroglycerin 0.4 mg sublingual 0.4 mg sublingual PRN #25 tab-caps 05/28/22 02/26/23 tablet (Nitrostat) sildenafil 100 mg tablet 100 mg PO DAILY PRN sexual 08/18/22 02/26/23 activity #5 tabs albuterol sulfate 90 mcg/actuation 2 inh inhalation Q6H PRN 08/27/22 02/26/23 aerosol inhaler (Ventolin HFA) bronchospasm #8.5 grams lancets 28 gauge (TRUEplus Lancets) #100 ea 10/07/22 02/26/23 dulaglutide 0.75 mg/0.5 mL 0.75 mg (0.5 mL) subcut QWEEK #6 mL 10/10/22 02/26/23 subcutaneous pen injector (Trulicity) insulin glargine 100 unit/mL (3 47 unit (0.47 mL) subcut HS #45 mL 10/26/22 02/26/23 mL) subcutaneous pen pantoprazole 40 mg tablet,delayed 40 mg PO DAILY #90 tabs 10/26/22 02/26/23 release pen needle, diabetic 33 gauge x #100 ea 11/09/22 02/26/23 5/32 (Advocate Pen Needle) gabapentin 300 mg capsule See Rx Instructions .Route 11/28/22 02/26/23 .COMPLEX #90 caps fluticasone propionate 50 2 spray NS DAILY #1 g 12/10/22 02/26/23 mcg/actuation nasal spray,suspension triamcinolone acetonide 0.1 % 1 applic topical BID PRN pinna 12/10/22 02/26/23 topical cream rash #30 grams tamsulosin 0.4 mg capsule 0.8 mg PO DAILY #90 caps 01/19/23 02/26/23 bisacodyl 5 mg tablet,delayed 5 mg PO ONCE colonscopy bowel prep 02/01/23 02/26/23 release (Dulcolax (bisacodyl)) #4 tabs bisacodyl 5 mg tablet,delayed 5 mg PO ONCE colonscopy bowel prep 02/01/23 02/26/23 release (Dulcolax (bisacodyl)) #4 tabs polyethylene glycol 3350 17 238 g PO ONCE colonoscopy prep 02/01/23 02/26/23 gram/dose oral powder #238 grams erythromycin 5 mg/gram (0.5 %) eye 0.5 inch ophthalmic (eye) QID #3.5 02/02/23 02/26/23 ointment grams mupirocin 2 % topical ointment 1 applic topical BID #15 grams 02/05/23 02/26/23 bupropion HCl 150 mg tablet,12 hr 150 mg PO BID #180 tabs 02/16/23 02/26/23 sustained-release ciprofloxacin 0.3 %-dexamethasone 4 drp otic (ear) BID 7 days #7.5 mL 03/02/23 03/02/23 0.1 % ear drops,suspension (Ciprodex) ciprofloxacin HCl 500 mg tablet 500 mg PO Q12H #14 tabs 03/02/23 03/02/23 doxycycline hyclate 100 mg tablet 100 mg PO BID #20 tabs 03/04/23 Previous Rx's Medication Instructions Recorded acetaminophen 650 mg 650 mg PO Q8H PRN Pain ##20 04/30/17 tablet,extended release budesonide 0.5 mg/2 mL suspension 0.5 mg (2 mL) inhalation BID #60 mL 11/08/20 for nebulization epinephrine 0.3 mg/0.3 mL 0.3 mg (0.3 mL) IM ONCE #2 ea 03/12/21 injection, auto-injector loratadine 10 mg capsule 10 mg PO DAILY #10 caps 12/28/21 blood sugar diagnostic (FreeStyle #300 strips 01/30/22 Test strips) clotrimazole-betamethasone 1 1 applic topical BID #45 grams 03/04/22 %-0.05 % topical cream losartan 50 mg tablet 100 mg PO DAILY #180 tabs 03/25/22 ezetimibe 10 mg tablet 10 mg PO DAILY #90 tabs 04/17/22 diclofenac sodium 1 % topical gel 2 g topical QID #100 grams 04/24/22 amlodipine 5 mg tablet 5 mg PO BID #180 tabs 05/28/22 atorvastatin 80 mg tablet 80 mg PO QHS #90 tabs 05/28/22 clopidogrel 75 mg tablet (Plavix) 75 mg PO DAILY #90 tabs 05/28/22 empagliflozin 25 mg tablet 25 mg PO DAILY #90 tabs 05/28/22 (Jardiance) nitroglycerin 0.4 mg sublingual 0.4 mg sublingual PRN #25 tab-caps 05/28/22 tablet (Nitrostat) sildenafil 100 mg tablet 100 mg PO DAILY PRN sexual 08/18/22 activity #5 tabs albuterol sulfate 90 mcg/actuation 2 inh inhalation Q6H PRN 08/27/22 aerosol inhaler (Ventolin HFA) bronchospasm #8.5 grams lancets 28 gauge (TRUEplus Lancets) #100 ea 10/07/22 dulaglutide 0.75 mg/0.5 mL 0.75 mg (0.5 mL) subcut QWEEK #6 mL 10/10/22 subcutaneous pen injector (Trulicity) insulin glargine 100 unit/mL (3 47 unit (0.47 mL) subcut HS #45 mL 10/26/22 mL) subcutaneous pen pantoprazole 40 mg tablet,delayed 40 mg PO DAILY #90 tabs 10/26/22 release pen needle, diabetic 33 gauge x #100 ea 11/09/22 (Advocate Pen Needle) gabapentin 300 mg capsule See Rx Instructions .Route 11/28/22 .COMPLEX #90 caps fluticasone propionate 50 2 spray NS DAILY #1 g 12/10/22 mcg/actuation nasal spray,suspension triamcinolone acetonide 0.1 % 1 applic topical BID PRN pinna 12/10/22 topical cream rash #30 grams tamsulosin 0.4 mg capsule 0.8 mg PO DAILY #90 caps 01/19/23 bisacodyl 5 mg tablet,delayed 5 mg PO ONCE colonscopy bowel prep 02/01/23 release (Dulcolax (bisacodyl)) #4 tabs bisacodyl 5 mg tablet,delayed 5 mg PO ONCE colonscopy bowel prep 02/01/23 release (Dulcolax (bisacodyl)) #4 tabs polyethylene glycol 3350 17 238 g PO ONCE colonoscopy prep 02/01/23 gram/dose oral powder #238 grams erythromycin 5 mg/gram (0.5 %) eye 0.5 inch ophthalmic (eye) QID #3.5 02/02/23 ointment grams mupirocin 2 % topical ointment 1 applic topical BID #15 grams 02/05/23 bupropion HCl 150 mg tablet,12 hr 150 mg PO BID #180 tabs 02/16/23 sustained-release ciprofloxacin 0.3 %-dexamethasone 4 drp otic (ear) BID 7 days #7.5 mL 03/02/23 0.1 % ear drops,suspension (Ciprodex) ciprofloxacin HCl 500 mg tablet 500 mg PO Q12H #14 tabs 03/02/23 doxycycline hyclate 100 mg tablet 100 mg PO BID #20 tabs 03/04/23 Allergies Allergy/AdvReac Type Severity Reaction Status Date / Time venom-honey bee Allergy Severe ANAPHYLAXSI Verified 03/02/23 17:45 [bee venom (honey bee)] S Sulfa (Sulfonamide Allergy Unknown unknown Verified 03/02/23 17:45 Antibiotics) leflunomide [From Arava] AdvReac Intermediate DIARRHEA Verified 03/02/23 17:45 metformin AdvReac Intermediate diarrhea Verified 03/02/23 17:45 General STAR: 2 Review of Systems All systems reviewed & are unremarkable except as noted in HPI and below PFSH All Active Problems Chronic obstructive lung disease (Chronic) pulmonary fibrosis on chest xray ongoing tobacco use add back budesonide nebs to see if we can improve cough Diabetes mellitus (Chronic 05/05/13) check A1c and creat Gastroesophageal reflux disease (Chronic) Hyperlipidemia (Chronic 05/05/13) Kidney stone (Acute 09/14/14) recurrent x3 on left [facility] Urology 10/12/16-[facility]; F/U Dr. Fair Male erectile disorder (Acute 08/29/13) Palpitations (Acute 11/04/12) multiple PVCs, bradycardia (2013) ([facility], Dr Abraham, echo normal LVEF and stress test neg ischemia) Rheumatoid arthritis (Chronic 05/05/13) [facility], Dr Leon Smoker (Chronic) Tubular adenoma (Acute) 11/20 COLONOSCOPY: ONE TUBULOVILLOUS ADENOMA & TWO TUBULAR ADENOMAS. 05/22/13: DR. 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 venom (Acute) Cellulitis of ear (Acute) Aortic atherosclerosis (Acute) Emphysema lung (Acute) Tubular adenoma of colon (Acute) COPD with acute exacerbation (Acute) 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) Cardiomyopathy (Acute) Syncope (Chronic) Hypotension (Acute) Acute left otitis media (Acute) Cellulitis of scalp (Acute) Medical History Acute kidney injury ASCVD (arteriosclerotic cardiovascular disease) (05/05/13) 2 NEW STENTS 04/22 H/O IMI; [facility] [place] [facility] , [facility]; CVA/TIA BPH loc w urin obs/LUTS COPD (chronic obstructive pulmonary disease) CVA (cerebral vascular accident) (11/21/17) Eczema Hypertension same meds, good BP here today Hypoxemia Myocardial infarction 2020 x2 stents Sepsis Surgical History Colonoscopy - MAC (05/16/13) Colonoscopy - MAC (11/13/16) Colostomy (~2006) TEMP W/ REVISION Excision, Lipoma (05/19/16) posterior neck Hernia Repair, Incisional History of incisional hernia repair History of knee surgery KNEE REPAIR RIGHT RESECTION ANGIOFIBROMA;RIGHT FOOT 02/04/18 Stented coronary artery 05/25/19 [facility]; s/p stent of old stent-KB Family History Mother Essential hypertension Heart disease Stroke Father Stroke Brother Heart disease Family History Diabetes Heart disease Cancer Brother No problems noted. Brother No problems noted. Sister No problems noted. Sister Alcohol abuse Social History Smoking/Tobacco Use Status: Current every day Tobacco Type: cigarettes Tobacco: How many years used: 60 Quit status: has quit before Second Hand Exposure: Yes Smoking risk assessment performed?: Yes Alcohol Intake: former Drug use: Never Substance use type: does not use Household members: family Housing: house Communication Needs: None Do you need help understanding health information?: Rarely Pets and animals: Yes Pets and animals: cat(s) Sexually active: No Current gender identity: male What is your relationship status?: How often do you talk on the phone with friends or family?: three or more times per week How often do you get together with friends or relatives?: twice per week How often do you attend sabianism or zoroastrianism services?: decline to answer Do you belong to any clubs or organized social groups?: no Panel score (0-1 are the most socially isolated patients): 1 What type of physical activity do you participate in: walking Duration: < 15 minutes/day Frequency: 1-2 times per week Monika/Gnosticist: None Special monika needs: No Seatbelt use: sometimes Helmet use: No Drive intox or ride w/intox local owner operator truck driver: No Do you feel safe at home: Yes Do you feel safe in your relationship?: Yes Additional Social history: Lives with roommate in trailer [facility]. 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 4 adult kids in the area. Exam Narrative Exam Narrative: 1.Const: Well-nourished, Well-developed, appearing stated age 2.Eyes: PERRL, no conjunctival injection, and symmetrical lids. 3.ENT: Atraumatic external nose and ears. Moist MM. Neck: Symmetric, trachea midline, No thyromegaly. Patient does demonstrate active effusion from the left ear. Right ear shows no evidence of otitis media. Effusion does appear to be draining on the left. No mastoid tenderness. No evidence of mastoiditis. 4.CVS: +S1/S2, No murmurs or gallops. Peripheral pulses 2+ and equal in all extremities. Brisk capillary refill in all extremities. 5.RESP: Unlabored respiratory effort. Clear to auscultation bilaterally. No wheezes rales or rhonchi 6.GI: Soft, Nontender/Nondistended, No hepatosplenomegaly. No guarding or rebound. 7.MSK: Normocephalic/Atraumatic, Extremities w/o deformity or ttp No cyanosis or clubbing, Normal movement of all extremities 8.Skin: Warm, Dry. patient's scalp demonstrates small lesion at the occiput. Small amount of serosanguineous fluid is draining. Bedside ultrasound shows No evidence of large fluid collection or abscess or fluctuance. Small amount of surrounding cellulitis with about a centimeter for the radius circumferentially from that site. No evidence of tick or foreign body. No nuchal rigidity. No neck stiffness. 9.Neuro: boston cutter II-XII grossly intact. Sensation grossly intact, no focal neurologic deficits. 10.Psych: (AAO) x3. Appropriate mood and affect
[2023-03-04] MEDS: Acetaminophen 500 MG TAB 1000 MG PO (21:42)
[2023-03-04] MEDS: Doxycycline Hyclate 100 MG, 2 CAPS/BTL PO (21:43)
== END 2023-03-04 23:00 | disposition home or self-care (01) ==
PROVIDERS: Emergency Provider Student in an Organized Health Care Education/Training Program; PCP Family Medicine
DX: L03.811 Cellulitis of head [any part, except face] (principal); H65.192 Other acute nonsuppurative otitis media, left ear; I25.10 Atherosclerotic heart disease of native coronary artery without angina pectoris; I25.2 Old myocardial infarction; I10 Essential (primary) hypertension; Z95.5 Presence of coronary angioplasty implant and graft; F17.210 Nicotine dependence, cigarettes, uncomplicated; J44.9 Chronic obstructive pulmonary disease, unspecified; M06.9 Rheumatoid arthritis, unspecified; Z79.4 Long term (current) use of insulin; Z79.82 Long term (current) use of aspirin; Z79.02 Long term (current) use of antithrombotics/antiplatelets; Z79.899 Other long term (current) drug therapy
CPT/HCPCS: 99283; 99284

== ENCOUNTER 2023-03-18 14:26 | Outpatient (REF) | payer MEDICARE, SELFPAY ==
[2023-03-18 14:21] LABS: COMMENT (LAB VIEW ONLY) 147.38 mg/dL; Microalb ug/mg Crea 12.6 ug/mg Cr
== END 2023-03-18 14:27 | disposition home or self-care (01) ==
LOC: LBN 14:26
PROVIDERS: PCP Family Medicine; Visit Provider Family Medicine
DX: E11.9 Type 2 diabetes mellitus without complications (principal)
CPT/HCPCS: 82043; 82570

== ENCOUNTER 2023-03-26 20:56 | Outpatient (REF) | payer MEDICARE, SELFPAY | END 2023-03-26 20:57 | disposition home or self-care (01) | LOC: LBN 20:56 | PROVIDERS: PCP Family Medicine; Visit Provider Physician Assistant | DX: L02.11 Cutaneous abscess of neck (principal); H60.02 Abscess of left external ear | CPT/HCPCS: 87077; 87070; 87205 ==

== ENCOUNTER 2023-03-27 10:09 | Emergency (ER) | payer MEDICARE, SELFPAY ==
[2023-03-27 10:12] VITALS: BP 95/59; PULSE 76; RESP 16; TEMP 36.9; O2SAT 96
--- NOTE | 2023-03-27 10:35 | W.ED.GENAD ---
Discharge Plan Disposition Patient Disposition: Home Discharge Details Clinical Impression: Pharyngitis Primary Care Provider: Mike Burns ED Provider: Tai Navarro Home Meds and New Rx's Prescriptions: New lidocaine HCl [Lidocaine Viscous] 2 % solution 1 applic mucous membrane BID PRNQty: 100 0RF Continued aspirin 81 mg tablet,chewable 81 mg PO DAILY nitroglycerin [Nitrostat] 0.4 mg tablet, sublingual 0.4 mg Sublingual PRN Qty: 25 11RF Rx Instructions: 1 TAB SL PRN losartan 50 mg tablet 100 mg PO DAILY Qty: 180 3RF Hold Instructions: Resume on 02/28/23. fluticasone propionate 50 mcg/actuation spray,suspension 2 spray NS DAILY Qty: 1 8RF triamcinolone acetonide 0.1 % cream 1 applic topical BID PRN (Reason: pinna rash) Qty: 30 0RF mupirocin 2 % ointment 1 applic topical TID Qty: 15 0RF sildenafil 100 mg tablet 100 mg PO DAILY PRN (Reason: sexual activity) Qty: 5 12RF Hold Instructions: Resume on 03/01/23. Rx Instructions: administer 30 minutes to 4 hours before activity clotrimazole-betamethasone 1-0.05 % cream 1 applic topical BID Qty: 45 0RF Rx Instructions: Apply pea-sized amount twice daily to penile skin as directed. 2 weeks only unless directed otherwise polyethylene glycol 3350 17 gram/dose powder 238 g PO ONCE Qty: 238 0RF Rx Instructions: take per colonoscopy instructions amlodipine 5 mg tablet 5 mg PO BID Qty: 180 3RF atorvastatin 80 mg tablet 80 mg PO QHS Qty: 90 3RF clopidogrel [Plavix] 75 mg tablet 75 mg PO DAILY Qty: 90 4RF Jardiance 25 mg tablet 25 mg PO DAILY Qty: 90 3RF ezetimibe 10 mg tablet 10 mg PO DAILY Qty: 90 4RF (DME) Space Chamber Plus 1 EACH spacer 1 ea Miscellaneous PRN Qty: 1 infliximab [Remicade] 100 MG recon soln 1,000 mg IV .[id number] Patient Comments: 05/31/15 Jacqui at [facility] [place] Rheumatology reports: 1000mg IV infusion every 6 months. Done at [facility] [place]. DL 03/05/17 q 4 months. si budesonide 0.5 mg/2 mL suspension for nebulization 0.5 mg Inhalation BID Qty: 60 11RF (DME) FreeStyle Test Strip 1 strip Miscellaneous DAILY Qty: 300 4RF Rx Instructions: test three times/day albuterol sulfate [Ventolin HFA] 90 mcg/actuation HFA aerosol inhaler 2 inh INHALATION Q6H PRN (Reason: bronchospasm) Qty: 8.5 3RF (DME) lancets [TRUEplus Lancets] 28 gauge misc See Rx Instructions .Route Qty: 100 3RF Rx Instructions: test once/day Trulicity 0.75 mg/0.5 mL pen injector 0.75 mg SC QWEEK Qty: 6 3RF pantoprazole 40 mg tablet,delayed release (DR/EC) 40 mg PO DAILY Qty: 90 3RF Rx Instructions: TAKE 6 HOURS APART FROM YOUR PLAVIX insulin glargine 100 unit/mL (3 mL) insulin pen 47 unit SC HS Qty: 45 3RF (DME) pen needle, diabetic [Advocate Pen Needle] 33 gauge x 5/32 needle See Rx Instructions .ROUTE .MEDSUPPLY Qty: 100 3RF Rx Instructions: inject once/day gabapentin 300 mg capsule See Rx Instructions .ROUTE .COMPLEX Qty: 90 5RF Dose Instruction: TAKE ONE CAPSULE BY MOUTH THREE TIMES A DAY Rx Instructions: TAKE ONE CAPSULE BY MOUTH THREE TIMES A DAY tamsulosin 0.4 mg capsule 0.8 mg PO DAILY Qty: 90 3RF bupropion HCl 150 mg tablet sustained-release 12 hr 150 mg PO BID Qty: 180 3RF acetaminophen 650 MG tablet extended release 650 mg PO Q8H PRN (Reason: Pain) Qty: 20 0RF epinephrine 0.3 mg/0.3 mL auto-injector 0.3 mg IM ONCE Qty: 2 0RF Rx Instructions: as a single dose; may repeat once loratadine 10 mg capsule 10 mg PO DAILY Qty: 10 0RF diclofenac sodium 1 % gel 2 g topical QID Qty: 100 0RF Rx Instructions: apply to single elbow, wrist or hand; for hand includes palm/fingers/back of hand Discontinued erythromycin 5 mg/gram (0.5 %) ointment 0.5 inch ophthalmic (eye) QID Qty: 3.5 0RF Rx Instructions: apply 0.5in strip to left eye every 6 hours (4x daily) x 5 days mupirocin 2 % ointment 1 applic topical BID Qty: 15 0RF Rx Instructions: apply twice daily for 7 days bisacodyl [Dulcolax (bisacodyl)] 5 mg tablet,delayed release (DR/EC) 5 mg PO ONCE Qty: 4 0RF Rx Instructions: take per colonoscopy instructions bisacodyl [Dulcolax (bisacodyl)] 5 mg tablet,delayed release (DR/EC) 5 mg PO ONCE Qty: 4 0RF Rx Instructions: take per colonoscopy instructions ciprofloxacin HCl 500 mg tablet 500 mg PO Q12H Qty: 14 0RF doxycycline hyclate 100 mg tablet 100 mg PO BID Qty: 20 0RF Discharge Instructions Instructions: Pharyngitis (ED) Additional Instructions: At this time I do not feel that your symptoms are from infection but more than likely from the excess smoking. It is recommended that you decrease cigarette tobacco use. You have been prescribed a viscous lidocaine that you may gargle and spit twice daily as needed for discomfort. You may also use [id number] acetaminophen as needed for further discomfort. If not improving in the next week please call your primary care provider for reassessment. For any new or significant worsening of symptoms return to the emergency department for reassessment. Referrals: Mike Burns MD [Primary Care Provider] - 1 week (If not improving) Medical Decision Making Patient presenting to the emergency department for chief complaint of sore throat that he woke up with this morning. Patient denies all other symptoms. Exam consistent with Pharyngitis. 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 Pt non toxic and stable. Patient negative for strep and culture was sent. Patient does report that he did have excessive smoking yesterday which I feel is a strong contributing factor. Patient prescribed viscous lidocaine to help with symptoms otherwise to use [id number] acetaminophen. After discussion of diagnosis and plan of care patient has no further needs, questions, or concerns and states clear understanding to return to the emergency department for any worsening symptoms. This documentation was generated using Snappliation system, please disregard any oddities of phrase or misspellings. After discharge pharmacy did call and state that viscous lidocaine was still unavailable so recommended [id number] benzocaine spray as directed on packaging. HPI General Mode of arrival: ambulatory. Date/Time Provider Initiated Documentation: 03/27/23 10:20. Limitations to Documentation: no limitations. Information obtained by: patient and RN notes reviewed. History of Present Illness 77 year old M presents to the emergency department with the chief complaint of Sore throat, described as moderate, Quality is described as aching, and is localized to the neck. Patient reports no radiation. Patient started experiencing this hour(s) (4) and it has been constant. No relieving factors improve symptom(s), Other factors that worsen symptoms (Increased smoking) . Patient notes no other symptoms.. Patient did receive the following treatments prior to arrival, none Related Data Home Medications Medication Instructions Recorded Confirmed inhalational spacing device (Space ##1 05/27/15 03/18/23 Chamber Plus) infliximab 100 mg intravenous 1,000 mg IV .[id number] 05/31/15 03/27/23 solution (Remicade) acetaminophen 650 mg 650 mg PO Q8H PRN Pain ##20 04/30/17 03/27/23 tablet,extended release budesonide 0.5 mg/2 mL suspension 0.5 mg (2 mL) inhalation BID #60 mL 11/08/20 03/27/23 for nebulization epinephrine 0.3 mg/0.3 mL 0.3 mg (0.3 mL) IM ONCE #2 ea 03/12/21 03/27/23 injection, auto-injector aspirin 81 mg chewable tablet 81 mg PO DAILY 05/27/21 03/27/23 loratadine 10 mg capsule 10 mg PO DAILY #10 caps 12/28/21 03/27/23 blood sugar diagnostic (FreeStyle #300 strips 01/30/22 03/18/23 Test strips) clotrimazole-betamethasone 1 1 applic topical BID #45 grams 03/04/22 03/27/23 %-0.05 % topical cream losartan 50 mg tablet 100 mg PO DAILY #180 tabs 03/25/22 03/27/23 diclofenac sodium 1 % topical gel 2 g topical QID #100 grams 04/24/22 03/27/23 nitroglycerin 0.4 mg sublingual 0.4 mg sublingual PRN #25 tab-caps 05/28/22 03/27/23 tablet (Nitrostat) sildenafil 100 mg tablet 100 mg PO DAILY PRN sexual 08/18/22 03/27/23 activity #5 tabs albuterol sulfate 90 mcg/actuation 2 inh inhalation Q6H PRN 08/27/22 03/27/23 aerosol inhaler (Ventolin HFA) bronchospasm #8.5 grams lancets 28 gauge (TRUEplus Lancets) #100 ea 10/07/22 03/18/23 dulaglutide 0.75 mg/0.5 mL 0.75 mg (0.5 mL) subcut QWEEK #6 mL 10/10/22 03/27/23 subcutaneous pen injector (Trulicity) insulin glargine 100 unit/mL (3 47 unit (0.47 mL) subcut HS #45 mL 10/26/22 03/27/23 mL) subcutaneous pen pantoprazole 40 mg tablet,delayed 40 mg PO DAILY #90 tabs 10/26/22 03/27/23 release pen needle, diabetic 33 gauge x #100 ea 11/09/22 03/18/23 5/32 (Advocate Pen Needle) gabapentin 300 mg capsule See Rx Instructions .Route 11/28/22 03/27/23 .COMPLEX #90 caps fluticasone propionate 50 2 spray NS DAILY #1 g 12/10/22 03/27/23 mcg/actuation nasal spray,suspension triamcinolone acetonide 0.1 % 1 applic topical BID PRN pinna 12/10/22 03/27/23 topical cream rash #30 grams tamsulosin 0.4 mg capsule 0.8 mg PO DAILY #90 caps 01/19/23 03/27/23 polyethylene glycol 3350 17 238 g PO ONCE colonoscopy prep 02/01/23 03/27/23 gram/dose oral powder #238 grams bupropion HCl 150 mg tablet,12 hr 150 mg PO BID #180 tabs 02/16/23 03/27/23 sustained-release amlodipine 5 mg tablet 5 mg PO BID #180 tabs 03/18/23 03/27/23 atorvastatin 80 mg tablet 80 mg PO QHS #90 tabs 03/18/23 03/27/23 clopidogrel 75 mg tablet (Plavix) 75 mg PO DAILY #90 tabs 03/18/23 03/27/23 empagliflozin 25 mg tablet 25 mg PO DAILY #90 tabs 03/18/23 03/27/23 (Jardiance) ezetimibe 10 mg tablet 10 mg PO DAILY #90 tabs 03/18/23 03/27/23 mupirocin 2 % topical ointment 1 applic topical TID #15 grams 03/26/23 03/27/23 lidocaine HCl 2 % mucosal solution 1 applic mucous membrane BID PRN 03/27/23 (Lidocaine Viscous) #100 mL Previous Rx's Medication Instructions Recorded acetaminophen 650 mg 650 mg PO Q8H PRN Pain ##20 04/30/17 tablet,extended release budesonide 0.5 mg/2 mL suspension 0.5 mg (2 mL) inhalation BID #60 mL 11/08/20 for nebulization epinephrine 0.3 mg/0.3 mL 0.3 mg (0.3 mL) IM ONCE #2 ea 03/12/21 injection, auto-injector loratadine 10 mg capsule 10 mg PO DAILY #10 caps 12/28/21 blood sugar diagnostic (FreeStyle #300 strips 01/30/22 Test strips) clotrimazole-betamethasone 1 1 applic topical BID #45 grams 03/04/22 %-0.05 % topical cream losartan 50 mg tablet 100 mg PO DAILY #180 tabs 03/25/22 diclofenac sodium 1 % topical gel 2 g topical QID #100 grams 04/24/22 nitroglycerin 0.4 mg sublingual 0.4 mg sublingual PRN #25 tab-caps 05/28/22 tablet (Nitrostat) sildenafil 100 mg tablet 100 mg PO DAILY PRN sexual 08/18/22 activity #5 tabs albuterol sulfate 90 mcg/actuation 2 inh inhalation Q6H PRN 08/27/22 aerosol inhaler (Ventolin HFA) bronchospasm #8.5 grams lancets 28 gauge (TRUEplus Lancets) #100 ea 10/07/22 dulaglutide 0.75 mg/0.5 mL 0.75 mg (0.5 mL) subcut QWEEK #6 mL 10/10/22 subcutaneous pen injector (Trulicity) insulin glargine 100 unit/mL (3 47 unit (0.47 mL) subcut HS #45 mL 10/26/22 mL) subcutaneous pen pantoprazole 40 mg tablet,delayed 40 mg PO DAILY #90 tabs 10/26/22 release pen needle, diabetic 33 gauge x #100 ea 11/09/22 (Advocate Pen Needle) gabapentin 300 mg capsule See Rx Instructions .Route 11/28/22 .COMPLEX #90 caps fluticasone propionate 50 2 spray NS DAILY #1 g 12/10/22 mcg/actuation nasal spray,suspension triamcinolone acetonide 0.1 % 1 applic topical BID PRN pinna 12/10/22 topical cream rash #30 grams tamsulosin 0.4 mg capsule 0.8 mg PO DAILY #90 caps 01/19/23 polyethylene glycol 3350 17 238 g PO ONCE colonoscopy prep 02/01/23 gram/dose oral powder #238 grams bupropion HCl 150 mg tablet,12 hr 150 mg PO BID #180 tabs 02/16/23 sustained-release amlodipine 5 mg tablet 5 mg PO BID #180 tabs 03/18/23 atorvastatin 80 mg tablet 80 mg PO QHS #90 tabs 03/18/23 clopidogrel 75 mg tablet (Plavix) 75 mg PO DAILY #90 tabs 03/18/23 empagliflozin 25 mg tablet 25 mg PO DAILY #90 tabs 03/18/23 (Jardiance) ezetimibe 10 mg tablet 10 mg PO DAILY #90 tabs 03/18/23 mupirocin 2 % topical ointment 1 applic topical TID #15 grams 03/26/23 lidocaine HCl 2 % mucosal solution 1 applic mucous membrane BID PRN 03/27/23 (Lidocaine Viscous) #100 mL Allergies Allergy/AdvReac Type Severity Reaction Status Date / Time venom-honey bee Allergy Severe ANAPHYLAXSI Verified 03/27/23 10:18 [bee venom (honey bee)] S Sulfa (Sulfonamide Allergy Unknown unknown Verified 03/27/23 10:18 Antibiotics) leflunomide [From Arava] AdvReac Intermediate DIARRHEA Verified 03/27/23 10:18 metformin AdvReac Intermediate diarrhea Verified 03/27/23 10:18 General Stated Complaint: Sorethroat STAR: 4 Review of Systems Constitutional Constitutional: Denies chills, Denies fever(s), Denies headache(s) and Denies malaise ENT Ears, Nose, Mouth, and Throat: Reports as per HPI, Denies headache(s), Reports hoarseness, Denies neck mass, Reports odynophagia, Reports sore throat and Denies throat swelling Cardiovascular Cardiovascular: Denies chest pain and Denies dyspnea Respiratory Respiratory: Denies cough, Denies dyspnea, Denies stridor and Denies wheezing Gastrointestinal Gastrointestinal: Denies abdominal pain and Reports odynophagia Neurologic Neurologic: Denies headache(s) Allergic/Immunologic Allergic/Immunologic: Denies throat swelling and Denies wheezing PFSH All Active Problems (Updated 03/27/23 @ 10:41 by Tai Navarro NP) Pharyngitis (Acute) Chronic obstructive lung disease (Chronic) pulmonary fibrosis on chest xray ongoing tobacco use add back budesonide nebs to see if we can improve cough Diabetes mellitus (Chronic 05/05/13) check A1c and creat Gastroesophageal reflux disease (Chronic) Hyperlipidemia (Chronic 05/05/13) Kidney stone (Acute 09/14/14) recurrent x3 on left [facility] [facility] Urology 10/12/16-[facility]; F/U Dr. Fair Male erectile disorder (Acute 08/29/13) Palpitations (Acute 11/04/12) multiple PVCs, bradycardia (2013) ([facility] [place], Dr Abraham, echo normal LVEF and stress test neg ischemia) Rheumatoid arthritis (Chronic 05/05/13) [facility] [place], Dr Leon Smoker (Chronic) Tubular adenoma (Acute) 11/20 COLONOSCOPY: ONE TUBULOVILLOUS ADENOMA & TWO TUBULAR ADENOMAS. 05/22/13: DR. Mateusz COPELAND:TUBULAR ADENOMAS 11/13/16: Dr Jian Crump: tublular and tubulovillous adenomas Erectile dysfunction (Chronic) Lipoma (Acute) Depressive disorder (Chronic) RCA occlusion (Acute) 05/25/19 [facility] [place] [facility] Bradycardia (Acute) Fatigue (Acute) Chronic knee pain (Acute) Arthritis of knee, right (Acute) Bilateral hip joint arthritis (Acute) Degenerative lumbar spinal stenosis (Acute) Adenomatous polyps (Acute) Serrated adenoma of colon (Acute ~07/2020) Mallet deformity of left ring finger (Acute 11/30/20) with avulsion fracture Anaphylaxis due to hymenoptera venom (Acute) Cellulitis of ear (Acute) Aortic atherosclerosis (Acute) Emphysema lung (Acute) Tubular adenoma of colon (Acute) COPD with acute exacerbation (Acute) 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) Cardiomyopathy (Acute) Syncope (Chronic) Hypotension (Acute) Acute left otitis media (Acute) Cellulitis of scalp (Acute) Otitis externa, left (Acute) Medical History Acute kidney injury ASCVD (arteriosclerotic cardiovascular disease) (05/05/13) 2 NEW STENTS 04/22 H/O IMI; angioplasty and stent; [place] , 02/11; CVA/TIA BPH loc w urin obs/LUTS COPD (chronic obstructive pulmonary disease) CVA (cerebral vascular accident) (11/21/17) Eczema Hypertension same meds, good BP here today Hypoxemia Myocardial infarction 2020 x2 stents Sepsis Surgical History Colonoscopy - MAC (05/16/13) Colonoscopy - MAC (11/13/16) Colostomy (~2006) TEMP W/ REVISION Excision, Lipoma (05/19/16) posterior neck Hernia Repair, Incisional History of incisional hernia repair History of knee surgery KNEE REPAIR RIGHT RESECTION ANGIOFIBROMA;RIGHT FOOT 02/04/18 Stented coronary artery 05/25/19 [facility] [place]; s/p stent of old stent-KB Family History Mother Essential hypertension Heart disease Stroke Father Stroke Brother Heart disease Family History Diabetes Heart disease Cancer Brother No problems noted. Brother No problems noted. Sister No problems noted. Sister Alcohol abuse Social History Smoking/Tobacco Use Status: Current every day Tobacco Type: cigarettes Tobacco: How many years used: 60 Quit status: has quit before Second Hand Exposure: Yes Smoking risk assessment performed?: Yes Alcohol Intake: former Drug use: Never Substance use type: does not use Household members: family Housing: house Communication Needs: None Do you need help understanding health information?: Rarely Pets and animals: Yes Pets and animals: cat(s) Sexually active: No Current gender identity: male What is your relationship status?: How often do you talk on the phone with friends or family?: three or more times per week How often do you get together with friends or relatives?: twice per week How often do you attend holiness or alevism services?: decline to answer Do you belong to any clubs or organized social groups?: no Panel score (0-1 are the most socially isolated patients): 1 What type of physical activity do you participate in: walking Duration: < 15 minutes/day Frequency: 1-2 times per week Monika/Nondenominational: None Special monika needs: No Seatbelt use: sometimes Helmet use: No Drive intox or ride w/intox assembly line driver: No Do you feel safe at home: Yes Do you feel safe in your relationship?: Yes Additional Social history: Lives with roommate in trailer at [facility]. 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 4 adult kids in the area. Exam Const General: cooperative, comfortable and no acute distress Orientation: alert and awake [facility] Head: normal to inspection, normocephalic and atraumatic Ears: hearing grossly normal bilaterally General nose exam: external nose normal Face and sinus: no erythema Mouth: oral mucosae normal, lip normal, tongue normal, no drooling and no trismus Throat: tonsils normal, uvula midline and posterior oropharynx abnormal erythema Neck Neck: normal visual inspection, full ROM, no lymphadenopathy, no meningeal signs, trachea midline and supple Resp Effort & Inspection: normal respiratory effort and able to speak in complete sentences Auscultation: clear to auscultation bilaterally Cardio Rate: regular rate Rhythm: regular rhythm Heart Sounds: S1 normal, S2 normal, normal S1 and S2, no click, no gallops, no murmurs and no rubs Skin General skin exam: no rashes or lesions noted and dry skin (warm) Neuro General: patient alert, patient awake, patient oriented x3, gait normal and moves all extremities Cognition: normal cognition Speech: speech normal Course Vital Signs Vital signs: Vital Signs Temperature 36.9 C 03/27/23 10:12 Pulse 76 03/27/23 10:12 Respiratory Rate 16 03/27/23 10:12 Blood Pressure 95/59 L 03/27/23 10:12 Pulse Oximetry 96 03/27/23 10:12 Temperature 36.9 C 03/27/23 10:12 Temperature Source Skin 03/27/23 10:12 Pulse 76 03/27/23 10:12 Respiratory Rate 16 03/27/23 10:12 Respiratory Effort Normal, Non-Labored 03/27/23 10:21 Blood Pressure 95/59 L 03/27/23 10:12 Blood Pressure Position Sitting 03/27/23 10:12 Pulse Oximetry 96 03/27/23 10:12 Oxygen Delivery Method Room Air 03/27/23 10:12 Oxygen Flow Rate 0 03/27/23 10:12
[2023-03-27 10:50] VITALS: BP 95/59; PULSE 76; RESP 16; TEMP 36.9; O2SAT 96
== END 2023-03-27 10:52 | disposition home or self-care (01) ==
PROVIDERS: Emergency Provider Nurse Practitioner Family; PCP Family Medicine
DX: J02.9 Acute pharyngitis, unspecified (principal)
CPT/HCPCS: 87880; 99283; 87081; 99284

== ENCOUNTER → 2023-04-07 14:34 | Outpatient (BNVA) | payer MEDICARE, SELFPAY | PROVIDERS: PCP Family Medicine; Referring Provider Family Medicine; Visit Provider Nurse Practitioner Gerontology | DX: N40.1 Benign prostatic hyperplasia with lower urinary tract symptoms (principal); R39.89 Other symptoms and signs involving the genitourinary system; E11.9 Type 2 diabetes mellitus without complications | CPT/HCPCS: 36415; 51701; 51798; 81003; 99213 ==

== ENCOUNTER 2023-04-07 17:44 | Outpatient (REF) | payer MEDICARE, SELFPAY ==
[2023-04-08 20:30] LABS: PSA, Diagnostic 13.8 ng/mL (<=6.5)
== END 2023-04-07 17:45 | disposition home or self-care (01) ==
LOC: LBN 17:44
PROVIDERS: PCP Family Medicine; Visit Provider Nurse Practitioner Gerontology
DX: N40.1 Benign prostatic hyperplasia with lower urinary tract symptoms (principal); N13.8 Other obstructive and reflux uropathy
CPT/HCPCS: 84153

== ENCOUNTER 2023-04-12 18:45 | Outpatient (REF) | payer MEDICARE, SELFPAY | END 2023-04-12 18:46 | disposition home or self-care (01) | LOC: LBN 18:45 | PROVIDERS: PCP Family Medicine; Visit Provider Physician Assistant | DX: H60.592 Other noninfective acute otitis externa, left ear; H92.12 Otorrhea, left ear | CPT/HCPCS: 87077; 87070; 87186; 87205 ==

== ENCOUNTER → 2023-04-14 08:49 | Outpatient (BNVA) | payer MEDICARE, SELFPAY | PROVIDERS: PCP Family Medicine; Referring Provider Family Medicine; Visit Provider Nurse Practitioner Gerontology | DX: R97.20 Elevated prostate specific antigen [PSA] (principal); R10.2 Pelvic and perineal pain; N40.1 Benign prostatic hyperplasia with lower urinary tract symptoms; R39.89 Other symptoms and signs involving the genitourinary system | CPT/HCPCS: 99442 ==

== ENCOUNTER → 2023-06-01 08:44 | Outpatient (BNVA) | payer MEDICARE, SELFPAY | PROVIDERS: PCP Family Medicine; Referring Provider Family Medicine; Visit Provider Nurse Practitioner Gerontology | DX: N40.1 Benign prostatic hyperplasia with lower urinary tract symptoms (principal); R39.89 Other symptoms and signs involving the genitourinary system; R97.20 Elevated prostate specific antigen [PSA]; E11.9 Type 2 diabetes mellitus without complications; J44.9 Chronic obstructive pulmonary disease, unspecified | CPT/HCPCS: 51798; 81003; 99214 ==

== ENCOUNTER 2023-06-16 16:58 | Outpatient (REF) | payer MEDICARE, SELFPAY | END 2023-06-16 16:59 | disposition home or self-care (01) | LOC: LBN 16:58 | PROVIDERS: PCP Family Medicine; Visit Provider Nurse Practitioner Family | DX: L03.113 Cellulitis of right upper limb; L98.8 Other specified disorders of the skin and subcutaneous tissue | CPT/HCPCS: 87077; 87070; 87186; 87205 ==

== ENCOUNTER 2023-07-07 07:07 | Outpatient (RCR) | payer MEDICARE, SELFPAY ==
[2023-03-13 00:10] VITALS: BP 132/78; PULSE 50; RESP 17; TEMP 36.6
[2023-07-07] VITALS (9 sets, daily range): BP systolic 102–144; BP diastolic 65–82; PULSE 53–73; RESP 17–18; TEMP 36.1–36.7; O2SAT 92–96
[2023-07-07] MEDS: diphenhydrAMINE 25 MG CAP (07:24)
[2023-07-07] MEDS: Acetaminophen 325 MG TAB (07:24)
[2023-07-07] MEDS: Normal Saline Flush 10 ML SYR IVP (07:24)
[2023-07-07] MEDS: riTUXimab-PVVR 1,000 MG in Normal Saline 150 ML 62.5 MG IVPB (07:46)
== END 2023-07-13 23:59 | disposition home or self-care (01) ==
LOC: INF 07:07
PROVIDERS: PCP Family Medicine; Visit Provider Nurse Practitioner Acute Care
DX: M06.9 Rheumatoid arthritis, unspecified (principal)
CPT/HCPCS: 96365; 96366; Q5119

== ENCOUNTER → 2023-07-19 11:18 | Outpatient (BNVA) | payer MEDICARE, SELFPAY | PROVIDERS: PCP Family Medicine; Referring Provider Family Medicine; Visit Provider Surgery | DX: Z12.11 Encounter for screening for malignant neoplasm of colon (principal); D12.6 Benign neoplasm of colon, unspecified ==

== ENCOUNTER → 2023-08-11 02:13 | Outpatient (CLI) | payer MEDICARE, SELFPAY ==
--- NOTE | 2023-08-11 07:00 | DI.CT_ITS ---
Exam(s) CT CHEST WO EXAM: CT CHEST WO CLINICAL HISTORY: reassess RML nodule; wt loss,R91.1. TECHNIQUE: Imaging protocol: Axial computed tomography images were obtained and coronal and sagittal reformatted images were created and reviewed. COMPARISON: CT CT ABDOMEN PELVIS W from 05/02/[address] CHEST PE CTA from 10/05/[address] ABDOMEN PELVIS WO from 10/05/2022 FINDINGS: Tracheobronchial tree: Patent where visualized. Pulmonary parenchyma: Moderately severe emphysematous changes in the lungs. Moderate pulmonary fibro sis. There is a calcified granuloma in the inferior medial aspect of the right upper lobe. There is a calcified granuloma in the left upper lobe. The small left lingular nodule is unchanged. No new pulmonary nodules are present. No consolidating infiltrates are seen. Mediastinum and Delilah: No dominant adenopathy or fluid collection. The esophagus is unremarkable. Thyroid gland: Unremarkable. Pleura: No effusion or pneumothorax. Heart: The heart is not dilated. Coronary artery calcification and/or stents are present. No pericar dial effusion. Aorta: Thoracic aorta non-dilated. Atherosclerosis is present. Upper abdomen: Stable renal cysts. No follow-up is recommended. Lymph nodes: Within normal limits. Soft tissues: Unremarkable. Bones:Within normal limits for the patient's age. IMPRESSION: 1. Stable pulmonary nodule. No new pulmonary nodules. 2. Moderately severe pulmonary emphysema. 3. Moderate pulmonary fibrosis. RADIATION DOSE DELIVERED: Total DLP Total DLP DATA REPOSITORY: All CT scans at this facility are submitted to the National Radiology Data Registry (NRDR) Dose Index Registry (DIR) with the [employer] (A[employer]). RADIATION OPTIMIZATION: All CT scans at this facility use at least one of these dose optimization te chniques: automated exposure control; mA and/or kV adjustment per patient size (includes targeted exa ms where dose is matched to clinical indication); or iterative reconstruction.
== END ==
PROVIDERS: PCP Family Medicine; Visit Provider Family Medicine
DX: J43.9 Emphysema, unspecified
CPT/HCPCS: 71250

== ENCOUNTER 2023-09-11 17:47 | Emergency (ER) | payer MEDICARE, SELFPAY ==
[2023-09-11 17:48] VITALS: BP 123/69; PULSE 70; RESP 16; TEMP 37.1; O2SAT 94
[2023-09-11 18:06] VITALS: BP 123/69; PULSE 70; RESP 16; TEMP 37.1; O2SAT 94
--- NOTE | 2023-09-11 18:12 | ED.GENADUL_ITS ---
HPI General Stated Complaint: EarProblem Mode of arrival: ambulatory. STAR: 4 Date/Time Provider Initiated Documentation: 09/11/23 18:03. Limitations to Documentation: no limitations. Information obtained by: patient, RN notes reviewed and old records reviewed. HPI Narrative: 78-year-old male presents to the ER with a chief complaint of right ear pain and difficulty hearing for the last couple of months. He was seen at [facility] 3 days ago and was prescribed ofloxacin eardrops which she has been taking. He does have a small wound to his external auditory canal with some dried blood surrounding it. Does appear infected. He does have some tenderness and erythema noted just below his ear with palpation. No mastoid tenderness to palpation. Does have small amount of erythema noted to his right tympanic membrane. Denies any sore throat, fever, neck pain or any other associated symptoms. Past medical history includes hypertension, COPD, CVA, CAD he does have a history of a stent. He does have an appointment with Dr. Loco in November. I will encourage him to call to get a sooner appointment if needed. I did encourage him to continue with the ofloxacin drops and will add Augmentin orally to the regimen. I did discuss wound care to clean the area gently daily with soap and water with a Q-tip. Related Data Home Medications Medication Instructions Recorded Confirmed inhalational spacing device (Space ##1 05/27/15 09/14/23 Chamber Plus) infliximab 100 mg intravenous 1,000 mg IV .[id number] 05/31/15 09/14/23 solution (Remicade) acetaminophen 650 mg 650 mg PO Q8H PRN Pain ##20 04/30/17 09/14/23 tablet,extended release epinephrine 0.3 mg/0.3 mL 0.3 mg (0.3 mL) IM ONCE #2 ea 03/12/21 09/14/23 injection, auto-injector aspirin 81 mg chewable tablet 81 mg PO DAILY 05/27/21 09/14/23 loratadine 10 mg capsule 10 mg PO DAILY #10 caps 12/28/21 09/14/23 clotrimazole-betamethasone 1 1 applic topical BID #45 grams 03/04/22 09/14/23 %-0.05 % topical cream diclofenac sodium 1 % topical gel 2 g topical QID #100 grams 04/24/22 09/14/23 lancets 28 gauge (TRUEplus Lancets) #100 ea 10/07/22 09/14/23 dulaglutide 0.75 mg/0.5 mL 0.75 mg (0.5 mL) subcut QWEEK #6 mL 10/10/22 09/14/23 subcutaneous pen injector (Trulicity) insulin glargine 100 unit/mL (3 47 unit (0.47 mL) subcut HS #45 mL 10/26/22 09/14/23 mL) subcutaneous pen pantoprazole 40 mg tablet,delayed 40 mg PO DAILY #90 tabs 10/26/22 09/14/23 release pen needle, diabetic 33 gauge x #100 ea 11/09/22 09/14/23 (Advocate Pen Needle) fluticasone propionate 50 2 spray NS DAILY #1 g 12/10/22 09/14/23 mcg/actuation nasal spray,suspension triamcinolone acetonide 0.1 % 1 applic topical BID PRN pinna 12/10/22 09/14/23 topical cream rash #30 grams polyethylene glycol 3350 17 238 g PO ONCE colonoscopy prep 02/01/23 09/14/23 gram/dose oral powder #238 grams bupropion HCl 150 mg tablet,12 hr 150 mg PO BID #180 tabs 02/16/23 09/14/23 sustained-release amlodipine 5 mg tablet 5 mg PO BID #180 tabs 03/18/23 09/14/23 atorvastatin 80 mg tablet 80 mg PO QHS #90 tabs 03/18/23 09/14/23 clopidogrel 75 mg tablet (Plavix) 75 mg PO DAILY #90 tabs 03/18/23 09/14/23 empagliflozin 25 mg tablet 25 mg PO DAILY #90 tabs 03/18/23 09/14/23 (Jardiance) ezetimibe 10 mg tablet 10 mg PO DAILY #90 tabs 03/18/23 09/14/23 lidocaine HCl 2 % mucosal solution 1 applic mucous membrane BID PRN 03/27/23 09/14/23 (Lidocaine Viscous) #100 mL sildenafil 100 mg tablet 100 mg PO DAILY PRN sexual 04/12/23 09/14/23 activity #5 tabs losartan 100 mg tablet 100 mg PO DAILY #90 tabs 08/10/23 01/02/24 lorazepam 1 mg tablet (Ativan) 1 mg PO DAILY PRN anxiety #2 tabs 05/14/23 09/14/23 gabapentin 300 mg capsule See Rx Instructions .Route 05/31/23 09/14/23 .COMPLEX #90 caps blood-glucose meter (FreeStyle #1 ea 06/01/23 09/14/23 Lite Meter kit) tamsulosin 0.4 mg capsule 0.8 mg (2 x 0.4 mg) PO DAILY #180 06/01/23 09/14/23 caps nitroglycerin 0.4 mg sublingual 0.4 mg sublingual PRN #25 tab-caps 06/23/23 09/14/23 tablet (Nitrostat) mupirocin 2 % topical ointment 1 applic topical TID #15 grams 06/28/23 09/14/23 blood sugar diagnostic (Contour #300 ea 07/27/23 09/14/23 Test Strips) albuterol sulfate 90 mcg/actuation 2 inh inhalation Q6H PRN 09/11/23 09/14/23 aerosol inhaler (Ventolin HFA) bronchospasm #8.5 grams amoxicillin 875 mg-potassium 1 tab PO BID 7 days #14 tabs 09/11/23 09/14/23 clavulanate 125 mg tablet Previous Rx's Medication Instructions Recorded acetaminophen 650 mg 650 mg PO Q8H PRN Pain ##20 04/30/17 tablet,extended release epinephrine 0.3 mg/0.3 mL 0.3 mg (0.3 mL) IM ONCE #2 ea 03/12/21 injection, auto-injector loratadine 10 mg capsule 10 mg PO DAILY #10 caps 12/28/21 clotrimazole-betamethasone 1 1 applic topical BID #45 grams 03/04/22 %-0.05 % topical cream diclofenac sodium 1 % topical gel 2 g topical QID #100 grams 04/24/22 lancets 28 gauge (TRUEplus Lancets) #100 ea 10/07/22 dulaglutide 0.75 mg/0.5 mL 0.75 mg (0.5 mL) subcut QWEEK #6 mL 10/10/22 subcutaneous pen injector ([facility]) insulin glargine 100 unit/mL (3 47 unit (0.47 mL) subcut HS #45 mL 10/26/22 mL) subcutaneous pen pantoprazole 40 mg tablet,delayed 40 mg PO DAILY #90 tabs 10/26/22 release pen needle, diabetic 33 gauge x #100 ea 11/09/22 (Advocate Pen Needle) fluticasone propionate 50 2 spray NS DAILY #1 g 12/10/22 mcg/actuation nasal spray,suspension triamcinolone acetonide 0.1 % 1 applic topical BID PRN pinna 12/10/22 topical cream rash #30 grams polyethylene glycol 3350 17 238 g PO ONCE colonoscopy prep 02/01/23 gram/dose oral powder #238 grams bupropion HCl 150 mg tablet,12 hr 150 mg PO BID #180 tabs 02/16/23 sustained-release amlodipine 5 mg tablet 5 mg PO BID #180 tabs 03/18/23 atorvastatin 80 mg tablet 80 mg PO QHS #90 tabs 03/18/23 clopidogrel 75 mg tablet (Plavix) 75 mg PO DAILY #90 tabs 03/18/23 empagliflozin 25 mg tablet 25 mg PO DAILY #90 tabs 03/18/23 (Jardiance) ezetimibe 10 mg tablet 10 mg PO DAILY #90 tabs 03/18/23 lidocaine HCl 2 % mucosal solution 1 applic mucous membrane BID PRN 03/27/23 (Lidocaine Viscous) #100 mL sildenafil 100 mg tablet 100 mg PO DAILY PRN sexual 04/12/23 activity #5 tabs losartan 100 mg tablet 100 mg PO DAILY #90 tabs 04/22/23 lorazepam 1 mg tablet (Ativan) 1 mg PO DAILY PRN anxiety #2 tabs 05/14/23 gabapentin 300 mg capsule See Rx Instructions .Route 05/31/23 .COMPLEX #90 caps blood-glucose meter (FreeStyle #1 ea 06/01/23 Lite Meter kit) tamsulosin 0.4 mg capsule 0.8 mg (2 x 0.4 mg) PO DAILY #180 06/01/23 caps nitroglycerin 0.4 mg sublingual 0.4 mg sublingual PRN #25 tab-caps 06/23/23 tablet (Nitrostat) mupirocin 2 % topical ointment 1 applic topical TID #15 grams 06/28/23 blood sugar diagnostic (Contour #300 ea 07/27/23 Test Strips) albuterol sulfate 90 mcg/actuation 2 inh inhalation Q6H PRN 09/11/23 aerosol inhaler (Ventolin HFA) bronchospasm #8.5 grams amoxicillin 875 mg-potassium 1 tab PO BID 7 days #14 tabs 09/11/23 clavulanate 125 mg tablet Allergies Allergy/AdvReac Type Severity Reaction Status Date / Time venom-honey bee Allergy Severe ANAPHYLAXSI Verified 09/11/23 17:54 [bee venom (honey bee)] S Sulfa (Sulfonamide Allergy Unknown unknown Verified 09/11/23 17:54 Antibiotics) leflunomide [From Arava] AdvReac Intermediate DIARRHEA Verified 09/11/23 17:54 metformin AdvReac Intermediate diarrhea Verified 09/11/23 17:54 Review of Systems Constitutional Constitutional: Denies fever(s) and Denies headache(s) ENT Ears, Nose, Mouth, and Throat: Reports as per HPI, Reports ear discharge (right), Reports otalgia, Denies headache(s), Reports hearing loss, Denies epistaxis, Denies mouth lesions, Denies neck mass, Denies neck pain and Denies sore throat Musculoskeletal Musculoskeletal: Denies neck pain Neurologic Neurologic: Denies headache(s) PFSH All Active Problems (Updated 09/11/23 @ 18:20 by Lisa Hernández NP) Laceration of right external ear (Acute) External otitis of right ear (Acute) Cellulitis (Acute) Epistaxis (Acute) Nasal vestibulitis (Acute) Sensorineural hearing loss, bilateral (Acute) Impacted cerumen, bilateral (Acute) Weight loss (Acute) Elevated PSA, between 10 and less than 20 ng/ml (Acute) Chronic obstructive lung disease (Chronic) pulmonary fibrosis on chest xray ongoing tobacco use add back budesonide nebs to see if we can improve cough Diabetes mellitus (Chronic 05/05/13) check A1c and creat Gastroesophageal reflux disease (Chronic) Hyperlipidemia (Chronic 05/05/13) Kidney stone (Acute 09/14/14) recurrent x3 on left [facility] Urology 10/12/16-[facility]; F/U Dr. Fair Male erectile disorder (Acute 08/29/13) Palpitations (Acute 11/04/12) multiple PVCs, bradycardia (2013) ([facility], Dr Abraham, echo normal LVEF and stress test neg ischemia) Rheumatoid arthritis (Chronic 05/05/13) [facility] Smoker (Chronic) Tubular adenoma (Acute) 11/20 COLONOSCOPY: ONE TUBULOVILLOUS ADENOMA & TWO TUBULAR ADENOMAS. 05/22/13: DR. Mateusz COPELAND:TUBULAR ADENOMAS 11/13/16: Dr Jian Crump: tublular and tubulovillous adenomas Erectile dysfunction (Chronic) Lipoma (Acute) Depressive disorder (Chronic) RCA occlusion (Acute) 05/25/19 [facility] Bradycardia (Acute) Fatigue (Acute) Chronic knee pain (Acute) Arthritis of knee, right (Acute) Bilateral hip joint arthritis (Acute) Degenerative lumbar spinal stenosis (Acute) Adenomatous polyps (Acute) Serrated adenoma of colon (Acute ~07/2020) Mallet deformity of left ring finger (Acute 11/30/20) with avulsion fracture Anaphylaxis due to hymenoptera venom (Acute) Cellulitis of ear (Acute) Aortic atherosclerosis (Acute) Emphysema lung (Acute) Tubular adenoma of colon (Acute) COPD with acute exacerbation (Acute) 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) Cardiomyopathy (Acute) Otitis externa, left (Acute) Medical History Eczema Hypoxemia Acute kidney injury Sepsis COPD (chronic obstructive pulmonary disease) BPH loc w urin obs/LUTS Myocardial infarction 2020 x2 stents Hypertension same meds, good BP here today CVA (cerebral vascular accident) (11/21/17) ASCVD (arteriosclerotic cardiovascular disease) (05/05/13) 2 NEW STENTS 04/22 H/O IMI; angioplasty and stent; [place] , 02/11; CVA/TIA Surgical History Stented coronary artery 05/25/19 [facility]; s/p stent of old stent-KB History of incisional hernia repair History of knee surgery RESECTION ANGIOFIBROMA;RIGHT FOOT 02/04/18 KNEE REPAIR RIGHT Hernia Repair, Incisional Excision, Lipoma (05/19/16) posterior neck Colostomy (~2006) TEMP W/ REVISION Colonoscopy - MAC (11/13/16) Colonoscopy - MAC (05/16/13) Family History Mother Essential hypertension Heart disease Stroke Father Stroke Brother Heart disease Family History Diabetes Heart disease Cancer Brother No problems noted. Brother No problems noted. Sister No problems noted. Sister Alcohol abuse Social History Smoking/Tobacco Use Status: Current every day Tobacco Type: cigarettes Tobacco: How many years used: 60 Quit status: has quit before Second Hand Exposure: Yes Smoking risk assessment performed?: Yes Alcohol Intake: former Drug use: Never Substance use type: does not use Household members: family Housing: house Communication Needs: None Do you need help understanding health information?: Rarely Pets and animals: Yes Pets and animals: cat(s) Sexually active: No Current gender identity: male What is your relationship status?: How often do you talk on the phone with friends or family?: three or more times per week How often do you get together with friends or relatives?: twice per week How often do you attend religious or catholic services?: decline to answer Do you belong to any clubs or organized social groups?: no Panel score (0-1 are the most socially isolated patients): 1 What type of physical activity do you participate in: walking Duration: < 15 minutes/day Frequency: 1-2 times per week Monika/Jehovah'S Witness: None Special monika needs: No Seatbelt use: sometimes Helmet use: No Drive intox or ride w/intox hazmat truck driver: No Do you feel safe at home: Yes Do you feel safe in your relationship?: Yes Additional Social history: Lives with roommate in trailer at [facility]. 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 4 adult kids in the area. Exam [facility] Head images: 2 1. Small amount of erythema and tenderness with palpation no lymphadenopathy palpated. Ears: TM normal on the right, TM normal on the left and EAC abnormal EAC tenderness on the right (Small laceration noted to the EAC with some purulent drainage and surrounding dried blood. TM within normal limits no evidence of perforation) Mouth: oral mucosae normal, lip normal and tongue normal Course Vital Signs Vital signs: Vital Signs Temperature 37.1 C 09/11/23 17:48 Pulse 70 09/11/23 17:48 Respiratory Rate 16 09/11/23 17:48 Blood Pressure 123/69 09/11/23 17:48 Pulse Oximetry 94 09/11/23 17:48 Temperature 37.1 C 09/11/23 18:06 Temperature Source Skin 09/11/23 17:48 Pulse 70 09/11/23 18:06 Respiratory Rate 16 09/11/23 18:06 Respiratory Effort Normal, Non-Labored 09/11/23 18:06 Blood Pressure 123/69 09/11/23 18:06 Blood Pressure Position Sitting 09/11/23 17:48 Pulse Oximetry 94 09/11/23 18:06 Oxygen Delivery Method Room Air 09/11/23 18:06 Oxygen Flow Rate 0 09/11/23 17:48 End Tidal Co2 8 09/11/23 17:48 Comment denies tylenol/ibuprofen 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 He was seen at [facility] 3 days ago and was prescribed ofloxacin eardrops which she has been taking. He does have a small wound to his external auditory canal with some dried blood surrounding it. Does appear infected. He does have some tenderness and erythema noted just below his ear with palpation. No mastoid tenderness to palpation. Does have small amount of erythema noted to his right tympanic membrane. Denies any sore throat, fever, neck pain or any other associated symptoms. Past medical history includes hypertension, COPD, CVA, CAD he does have a history of a stent. He does have an appointment with Dr. Loco in November. I will encourage him to call to get a sooner appointment if needed. I did encourage him to continue with the ofloxacin drops and will add Augmentin orally to the regimen. I did discuss wound care to clean the area gently daily with soap and water with a Q-tip. This text was generated using [employer] dictation system, please disregard any oddities of phrase or misspellings. Discharge Plan Disposition Patient Disposition: Home Condition: Stable Discharge Details Clinical Impression: External otitis of right ear, Laceration of right external ear Primary Care Provider: Mike Burns ED Provider: Lisa Hernández Home Meds and New Rx's Prescriptions: New amoxicillin-pot clavulanate 875-125 mg tablet 1 tab PO BID 7 Days Qty: 14 0RF No Action aspirin 81 mg tablet,chewable 81 mg PO DAILY fluticasone propionate 50 mcg/actuation spray,suspension 2 spray NS DAILY Qty: 1 8RF triamcinolone acetonide 0.1 % cream 1 applic topical BID PRN (Reason: pinna rash) Qty: 30 0RF clotrimazole-betamethasone 1-0.05 % cream 1 applic topical BID Qty: 45 0RF Rx Instructions: Apply pea-sized amount twice daily to penile skin as directed. 2 weeks only unless directed otherwise polyethylene glycol 3350 17 gram/dose powder 238 g PO ONCE Qty: 238 0RF Rx Instructions: take per colonoscopy instructions amlodipine 5 mg tablet 5 mg PO BID Qty: 180 3RF atorvastatin 80 mg tablet 80 mg PO QHS Qty: 90 3RF clopidogrel [Plavix] 75 mg tablet 75 mg PO DAILY Qty: 90 4RF Jardiance 25 mg tablet 25 mg PO DAILY Qty: 90 3RF ezetimibe 10 mg tablet 10 mg PO DAILY Qty: 90 4RF nitroglycerin [Nitrostat] 0.4 mg tablet, sublingual 0.4 mg Sublingual PRN Qty: 25 11RF Rx Instructions: 1 TAB SL PRN losartan 100 mg tablet 100 mg PO DAILY Qty: 90 3RF tamsulosin 0.4 mg capsule 0.8 mg PO DAILY Qty: 180 3RF (DME) Space Chamber Plus 1 EACH spacer 1 ea Miscellaneous PRN Qty: 1 infliximab [Remicade] 100 MG recon soln 1,000 mg IV .[id number] Patient Comments: 05/31/15 Jacqui at [facility] Rheumatology reports: 1000mg IV infusion every 6 months. Done at [facility]. DL 03/05/17 q 4 months. si (DME) lancets [TRUEplus Lancets] 28 gauge misc See Rx Instructions .Route Qty: 100 3RF Rx Instructions: test once/day Trulicity 0.75 mg/0.5 mL pen injector 0.75 mg SC QWEEK Qty: 6 3RF pantoprazole 40 mg tablet,delayed release (DR/EC) 40 mg PO DAILY Qty: 90 3RF Rx Instructions: TAKE 6 HOURS APART FROM YOUR PLAVIX insulin glargine 100 unit/mL (3 mL) insulin pen 47 unit SC HS Qty: 45 3RF (DME) pen needle, diabetic [Advocate Pen Needle] 33 gauge x 5/32 needle See Rx Instructions .ROUTE .MEDSUPPLY Qty: 100 3RF Rx Instructions: inject once/day bupropion HCl 150 mg tablet sustained-release 12 hr 150 mg PO BID Qty: 180 3RF sildenafil 100 mg tablet 100 mg PO DAILY PRN (Reason: sexual activity) Qty: 5 12RF Hold Instructions: Resume on 03/01/23. Rx Instructions: administer 30 minutes to 4 hours before activity lorazepam [Ativan] 1 mg tablet 1 mg PO DAILY PRN (Reason: anxiety) Qty: 2 0RF Rx Instructions: take 1 pill about 1 hour prior to scheduled MRI - if still anxious when you check in at the hospital, may take 2nd pill gabapentin 300 mg capsule See Rx Instructions .ROUTE .COMPLEX Qty: 90 5RF Dose Instruction: TAKE ONE CAPSULE BY MOUTH THREE TIMES A DAY Rx Instructions: TAKE ONE CAPSULE BY MOUTH THREE TIMES A DAY (DME) blood-glucose meter [FreeStyle Lite Meter] Kit See Rx Instructions .ROUTE .MEDSUPPLY Qty: 1 0RF Rx Instructions: test once/day mupirocin 2 % ointment 1 applic topical TID Qty: 15 2RF (DME) Contour Test Strips Strip See Rx Instructions .Route Qty: 300 4RF Rx Instructions: Test three times daily albuterol sulfate [Ventolin HFA] 90 mcg/actuation HFA aerosol inhaler 2 inh INHALATION Q6H PRN (Reason: bronchospasm) Qty: 8.5 3RF acetaminophen 650 MG tablet extended release 650 mg PO Q8H PRN (Reason: Pain) Qty: 20 0RF epinephrine 0.3 mg/0.3 mL auto-injector 0.3 mg IM ONCE Qty: 2 0RF Rx Instructions: as a single dose; may repeat once lidocaine HCl [Lidocaine Viscous] 2 % solution 1 applic mucous membrane BID PRNQty: 100 0RF loratadine 10 mg capsule 10 mg PO DAILY Qty: 10 0RF diclofenac sodium 1 % gel 2 g topical QID Qty: 100 0RF Rx Instructions: apply to single elbow, wrist or hand; for hand includes palm/fingers/back of hand Discharge Instructions Instructions: Otitis Externa (ED) Additional Instructions: It appears you have a small wound on the outside of your ear canal on the right. This does appear to be somewhat infected. Please clean the area with a Q-tip and soap and water daily. Dry it with the other side of the Q-tip. Continue to use the previously prescribed ofloxacin eardrops. Please take the antibiotic as directed with yogurt or probiotic twice a day for the next 7 days. Follow up with ear nose and throat/primary care provider in 3-5 days. Return to ED sooner if any worsening fever, redness swelling or concerns. Increase oral fluids. Please take Tylenol or Ibuprofen with food every 4-6 hours as needed for pain and swelling. Referrals: Torres Loco MD [ [facility] STAFF PHYSICIAN] - 2 weeks (Call to make a sooner appointment) Discharge Data Discharge Date/Time-TO BE ENTERED AT DEPARTURE: 09/11/23 18:31
[2023-09-11] MEDS: Amox. 875/Clav. 125, 2 TABS/BTL 1 TAB PO (18:37)
[2023-09-11] MEDS: Amoxicillin 875/Clav. 125 TAB PO (18:37)
== END 2023-09-11 18:31 | disposition home or self-care (01) ==
PROVIDERS: Emergency Provider Registered Nurse Emergency; PCP Family Medicine
DX: H60.501 Unspecified acute noninfective otitis externa, right ear (principal); S01.311A Laceration without foreign body of right ear, initial encounter; J44.9 Chronic obstructive pulmonary disease, unspecified; I10 Essential (primary) hypertension; I25.2 Old myocardial infarction; E11.9 Type 2 diabetes mellitus without complications; I25.10 Atherosclerotic heart disease of native coronary artery without angina pectoris; Z95.5 Presence of coronary angioplasty implant and graft; Z79.02 Long term (current) use of antithrombotics/antiplatelets; Z79.4 Long term (current) use of insulin; F17.210 Nicotine dependence, cigarettes, uncomplicated; X58.XXXA Exposure to other specified factors, initial encounter
CPT/HCPCS: 99283

== ENCOUNTER → 2023-09-22 09:47 | Outpatient (BNVA) | payer MEDICARE, SELFPAY | PROVIDERS: PCP Family Medicine; Referring Provider Family Medicine; Visit Provider Nurse Practitioner Gerontology | DX: N40.1 Benign prostatic hyperplasia with lower urinary tract symptoms (principal); R97.20 Elevated prostate specific antigen [PSA] | CPT/HCPCS: 51798; 99213 ==

== ENCOUNTER 2023-09-22 19:28 | Emergency (ER) | payer MEDICARE, SELFPAY ==
[2023-09-22] VITALS (13 sets, daily range): BP systolic 119–158; BP diastolic 51–64; PULSE 81–108; RESP 25–37; TEMP 36.3; O2SAT 85–99
--- NOTE | 2023-09-22 19:15 | RT.EKG_ITS ---
APPROVED REPORT Exam: Resting ECG Reason for Exam: SOB Patient Location: E HR:88 bpm ECG Measurements Heart Rate 88 AXIS RI 225 P -43 QRSd 102 QRS -64 QT 332 T 38 QTc 433 Conclusion Sinus tachycardia...rate> 99 Sinus pause...long R-R interval, normal QRSd Prolonged RI interval...RI >220, V-rate 50- 90 Inferior infarct, old...Q >35mS, II III aVF Physician: no stemi
--- NOTE | 2023-09-22 19:30 | DI.RAD_ITS ---
Exam(s) XR PORTABLE CHEST AP EXAM: XR PORTABLE CHEST AP CLINICAL HISTORY: sob, copd. TECHNIQUE: 2D digital imaging was performed. COMPARISON: CR,XR XR CHEST 2V PA LATERAL from 03/19/2022 CR,XR XR CHEST 1V IN DI DEPT from 02/27/[address] CHEST WO from 08/11/2023 FINDINGS: Single AP portable view. Patient is rotated towards the right Heart size is upper normal. The mediastinum is not widened. Chronic bilateral interstitial pattern is again noted could no pleural effusions. There is, however, a bandlike in in the left lung base. This is unchanged from CT scan of 08/11/2023. Was not evident in March 2022. IMPRESSION: Chronic interstitial disease. Bandlike infiltrate in the left lung base which was not evident in Mar but which appears unchanged from CT scan of 08/11/2023. DATA REPOSITORY: RADIATION DOSE DELIVERED:
--- NOTE | 2023-09-22 19:49 | W.ED.GENAD ---
HPI General Stated Complaint: SOB STAR: 3 Date/Time Provider Initiated Documentation: 09/22/23 19:39. HPI Narrative: 78-year-old male with a past medical history of COPD, continued tobacco use, previous MS, high cholesterol, recent otitis media who was prescribed Augmentin, who is on aspirin and Plavix daily for his previous MIs, who presents today for shortness of breath via EMS. Patient states that he recently restarted smoking again, he spent the day with some friends who may have been smoking or doing other concerning things. He went to see his primary care provider today and was given a prescription for steroids. He has been using his inhaler at home but this has not been helping. He does admit to a cough for the last 3 days. He admits to mild chest tightness with breathing but denies any chest pain. He states that this feels different than his previous heart attacks. He denies vomiting or diarrhea. No fever at home. No other complaints at this time. When EMS arrived he was 80% on room air. He was giving a breathing treatment en route which notably improved his symptoms. Related Data Home Medications Medication Instructions Recorded Confirmed inhalational spacing device (Space ##1 05/27/15 09/22/23 Chamber Plus) infliximab 100 mg intravenous 1,000 mg IV .[id number] 05/31/15 09/22/23 solution (Remicade) acetaminophen 650 mg 650 mg PO Q8H PRN Pain ##20 04/30/17 09/22/23 tablet,extended release epinephrine 0.3 mg/0.3 mL 0.3 mg (0.3 mL) IM ONCE #2 ea 03/12/21 09/22/23 injection, auto-injector aspirin 81 mg chewable tablet 81 mg PO DAILY 05/27/21 09/22/23 loratadine 10 mg capsule 10 mg PO DAILY #10 caps 12/28/21 09/22/23 clotrimazole-betamethasone 1 1 applic topical BID #45 grams 03/04/22 09/22/23 %-0.05 % topical cream diclofenac sodium 1 % topical gel 2 g topical QID #100 grams 04/24/22 09/22/23 pantoprazole 40 mg tablet,delayed 40 mg PO DAILY #90 tabs 10/26/22 09/22/23 release triamcinolone acetonide 0.1 % 1 applic topical BID PRN pinna 12/10/22 09/22/23 topical cream rash #30 grams polyethylene glycol 3350 17 238 g PO ONCE colonoscopy prep 02/01/23 09/22/23 gram/dose oral powder #238 grams bupropion HCl 150 mg tablet,12 hr 150 mg PO BID #180 tabs 02/16/23 09/22/23 sustained-release amlodipine 5 mg tablet 5 mg PO BID #180 tabs 03/18/23 09/22/23 atorvastatin 80 mg tablet 80 mg PO QHS #90 tabs 03/18/23 09/22/23 clopidogrel 75 mg tablet (Plavix) 75 mg PO DAILY #90 tabs 03/18/23 09/22/23 empagliflozin 25 mg tablet 25 mg PO DAILY #90 tabs 03/18/23 09/22/23 (Jardiance) ezetimibe 10 mg tablet 10 mg PO DAILY #90 tabs 03/18/23 09/22/23 lidocaine HCl 2 % mucosal solution 1 applic mucous membrane BID PRN 03/27/23 09/22/23 (Lidocaine Viscous) #100 mL sildenafil 100 mg tablet 100 mg PO DAILY PRN sexual 04/12/23 09/22/23 activity #5 tabs lorazepam 1 mg tablet (Ativan) 1 mg PO DAILY PRN anxiety #2 tabs 05/14/23 09/22/23 gabapentin 300 mg capsule See Rx Instructions .Route 05/31/23 09/22/23 .COMPLEX #90 caps blood-glucose meter (FreeStyle #1 ea 06/01/23 09/22/23 Lite Meter kit) tamsulosin 0.4 mg capsule 0.8 mg (2 x 0.4 mg) PO DAILY #180 06/01/23 09/22/23 caps nitroglycerin 0.4 mg sublingual 0.4 mg sublingual PRN #25 tab-caps 06/23/23 09/22/23 tablet (Nitrostat) mupirocin 2 % topical ointment 1 applic topical TID #15 grams 06/28/23 09/22/23 blood sugar diagnostic (Contour #300 ea 07/27/23 09/22/23 Test Strips) albuterol sulfate 90 mcg/actuation 2 inh inhalation Q6H PRN 09/11/23 09/22/23 aerosol inhaler (Ventolin HFA) bronchospasm #8.5 grams dulaglutide 0.75 mg/0.5 mL 0.75 mg (0.5 mL) subcut QWEEK #6 mL 09/22/23 09/22/23 [facility] finasteride 5 mg tablet 5 mg PO DAILY #90 tabs 09/22/23 09/22/23 fluticasone propionate 50 2 spray NS DAILY #1 g 09/22/23 09/22/23 mcg/actuation nasal spray,suspension insulin glargine 100 unit/mL (3 47 unit (0.47 mL) subcut HS #45 mL 09/22/23 09/22/23 mL) subcutaneous pen lancets 28 gauge (TRUEplus Lancets) #100 ea 09/22/23 09/22/23 losartan 100 mg tablet 100 mg PO DAILY #90 tabs 09/22/23 09/22/23 pen needle, diabetic 33 gauge x #100 ea 09/22/23 09/22/23 (Advocate Pen Needle) prednisone 20 mg tablet 40 mg (2 x 20 mg) PO DAILY #10 tabs 09/22/23 09/22/23 Previous Rx's Medication Instructions Recorded acetaminophen 650 mg 650 mg PO Q8H PRN Pain ##20 04/30/17 tablet,extended release epinephrine 0.3 mg/0.3 mL 0.3 mg (0.3 mL) IM ONCE #2 ea 03/12/21 injection, auto-injector loratadine 10 mg capsule 10 mg PO DAILY #10 caps 12/28/21 clotrimazole-betamethasone 1 1 applic topical BID #45 grams 03/04/22 %-0.05 % topical cream diclofenac sodium 1 % topical gel 2 g topical QID #100 grams 04/24/22 pantoprazole 40 mg tablet,delayed 40 mg PO DAILY #90 tabs 10/26/22 release triamcinolone acetonide 0.1 % 1 applic topical BID PRN pinna 12/10/22 topical cream rash #30 grams polyethylene glycol 3350 17 238 g PO ONCE colonoscopy prep 02/01/23 gram/dose oral powder #238 grams bupropion HCl 150 mg tablet,12 hr 150 mg PO BID #180 tabs 02/16/23 sustained-release amlodipine 5 mg tablet 5 mg PO BID #180 tabs 03/18/23 atorvastatin 80 mg tablet 80 mg PO QHS #90 tabs 03/18/23 clopidogrel 75 mg tablet (Plavix) 75 mg PO DAILY #90 tabs 03/18/23 empagliflozin 25 mg tablet 25 mg PO DAILY #90 tabs 03/18/23 (Jardiance) ezetimibe 10 mg tablet 10 mg PO DAILY #90 tabs 03/18/23 lidocaine HCl 2 % mucosal solution 1 applic mucous membrane BID PRN 03/27/23 (Lidocaine Viscous) #100 mL sildenafil 100 mg tablet 100 mg PO DAILY PRN sexual 04/12/23 activity #5 tabs lorazepam 1 mg tablet (Ativan) 1 mg PO DAILY PRN anxiety #2 tabs 05/14/23 gabapentin 300 mg capsule See Rx Instructions .Route 05/31/23 .COMPLEX #90 caps blood-glucose meter (FreeStyle #1 ea 06/01/23 Lite Meter kit) tamsulosin 0.4 mg capsule 0.8 mg (2 x 0.4 mg) PO DAILY #180 06/01/23 caps nitroglycerin 0.4 mg sublingual 0.4 mg sublingual PRN #25 tab-caps 06/23/23 tablet (Nitrostat) mupirocin 2 % topical ointment 1 applic topical TID #15 grams 06/28/23 blood sugar diagnostic (Contour #300 ea 07/27/23 Test Strips) albuterol sulfate 90 mcg/actuation 2 inh inhalation Q6H PRN 09/11/23 aerosol inhaler (Ventolin HFA) bronchospasm #8.5 grams dulaglutide 0.75 mg/0.5 mL 0.75 mg (0.5 mL) subcut QWEEK #6 mL 09/22/23 subcutaneous pen injector ([employer]) finasteride 5 mg tablet 5 mg PO DAILY #90 tabs 09/22/23 fluticasone propionate 50 2 spray NS DAILY #1 g 09/22/23 mcg/actuation nasal spray,suspension insulin glargine 100 unit/mL (3 47 unit (0.47 mL) subcut HS #45 mL 09/22/23 mL) subcutaneous pen lancets 28 gauge (TRUEplus Lancets) #100 ea 09/22/23 losartan 100 mg tablet 100 mg PO DAILY #90 tabs 09/22/23 pen needle, diabetic 33 gauge x #100 ea 09/22/23 (Advocate Pen Needle) prednisone 20 mg tablet 40 mg (2 x 20 mg) PO DAILY #10 tabs 09/22/23 Allergies Allergy/AdvReac Type Severity Reaction Status Date / Time venom-honey bee Allergy Severe ANAPHYLAXSI Verified 09/22/23 19:35 [bee venom (honey bee)] S Sulfa (Sulfonamide Allergy Unknown unknown Verified 09/22/23 19:35 Antibiotics) leflunomide [From Arava] AdvReac Intermediate DIARRHEA Verified 09/22/23 19:35 metformin AdvReac Intermediate diarrhea Verified 09/22/23 19:35 Review of Systems All systems reviewed & are unremarkable except as noted in HPI and below PFSH All Active Problems (Updated 09/23/23 @ 00:33 by Nghia Cabrera DO) COPD exacerbation (Acute) LANGSTON (dyspnea on exertion) (Acute) Laceration of right external ear (Acute) External otitis of right ear (Acute) Cellulitis (Acute) Epistaxis (Acute) Nasal vestibulitis (Acute) Sensorineural hearing loss, bilateral (Acute) Impacted cerumen, bilateral (Acute) Weight loss (Acute) Elevated PSA, between 10 and less than 20 ng/ml (Acute) Chronic obstructive lung disease (Chronic) pulmonary fibrosis on chest xray ongoing tobacco use add back budesonide nebs to see if we can improve cough Diabetes mellitus (Chronic 05/05/13) check A1c and creat Gastroesophageal reflux disease (Chronic) Hyperlipidemia (Chronic 05/05/13) Kidney stone (Acute 09/14/14) recurrent x3 on left [facility] Urology 10/12/16-[facility]; F/U Dr. Fair Male erectile disorder (Acute 08/29/13) Palpitations (Acute 11/04/12) multiple PVCs, bradycardia (2013) ([facility] [place] [place], Dr Abraham, echo normal LVEF and stress test neg ischemia) Rheumatoid arthritis (Chronic 05/05/13) [facility] [place] [place], Dr Leon Smoker (Chronic) Tubular adenoma (Acute) 11/20 COLONOSCOPY: ONE TUBULOVILLOUS ADENOMA & TWO TUBULAR ADENOMAS. 05/22/13: DR. Mateusz COPELAND:TUBULAR ADENOMAS 11/13/16: Dr Jian Crump: tublular and tubulovillous adenomas Erectile dysfunction (Chronic) Lipoma (Acute) Depressive disorder (Chronic) RCA occlusion (Acute) 05/25/19 [facility] [place] Bradycardia (Acute) Fatigue (Acute) Chronic knee pain (Acute) Arthritis of knee, right (Acute) Bilateral hip joint arthritis (Acute) Degenerative lumbar spinal stenosis (Acute) Adenomatous polyps (Acute) Serrated adenoma of colon (Acute ~07/2020) Mallet deformity of left ring finger (Acute 11/30/20) with avulsion fracture Anaphylaxis due to hymenoptera venom (Acute) Cellulitis of ear (Acute) Aortic atherosclerosis (Acute) Emphysema lung (Acute) Tubular adenoma of colon (Acute) COPD with acute exacerbation (Acute) 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) Cardiomyopathy (Acute) Otitis externa, left (Acute) Medical History Eczema Hypoxemia Acute kidney injury Sepsis COPD (chronic obstructive pulmonary disease) BPH loc w urin obs/LUTS Myocardial infarction 2020 x2 stents Hypertension same meds, good BP here today CVA (cerebral vascular accident) (11/21/17) ASCVD (arteriosclerotic cardiovascular disease) (05/05/13) 2 NEW STENTS 04/22 H/O IMI; angioplasty and stent; MS , 02/11; CVA/TIA Surgical History Stented coronary artery 05/25/19 [facility] [place]; s/p stent of old stent-KB History of incisional hernia repair History of knee surgery RESECTION ANGIOFIBROMA;RIGHT FOOT 02/04/18 KNEE REPAIR RIGHT Hernia Repair, Incisional Excision, Lipoma (05/19/16) posterior neck Colostomy (~2006) TEMP W/ REVISION Colonoscopy - MAC (11/13/16) Colonoscopy - MAC (05/16/13) Family History Mother Essential hypertension Heart disease Stroke Father Stroke Brother Heart disease Family History Diabetes Heart disease Cancer Brother No problems noted. Brother No problems noted. Sister No problems noted. Sister Alcohol abuse Social History Smoking/Tobacco Use Status: Current every day Tobacco Type: cigarettes Tobacco: How many years used: 60 Quit status: has quit before Second Hand Exposure: Yes Smoking risk assessment performed?: Yes Alcohol Intake: former Drug use: Never Substance use type: does not use Household members: family Housing: house Communication Needs: None Do you need help understanding health information?: Rarely Pets and animals: Yes Pets and animals: cat(s) Sexually active: No Current gender identity: male What is your relationship status?: How often do you talk on the phone with friends or family?: three or more times per week How often do you get together with friends or relatives?: twice per week How often do you attend baptist or quaker services?: decline to answer Do you belong to any clubs or organized social groups?: no Panel score (0-1 are the most socially isolated patients): 1 What type of physical activity do you participate in: walking Duration: < 15 minutes/day Frequency: 1-2 times per week Monika/Evangelical: None Special monika needs: No Seatbelt use: sometimes Helmet use: No Drive intox or ride w/intox certified driver examiner: No Do you feel safe at home: Yes Do you feel safe in your relationship?: Yes Additional Social history: Lives with roommate in trailer at [facility]. 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 4 adult kids in the area. Exam Narrative Exam Narrative: 1.Const: Well-nourished, Well-developed, appearing stated age 2.Eyes: PERRL, no conjunctival injection, and symmetrical lids. 3.ENT: Atraumatic external nose and ears. Moist MM. Neck: Symmetric, trachea midline, No thyromegaly. 4.CVS: +S1/S2, No murmurs or gallops. Peripheral pulses 2+ and equal in all extremities. Brisk capillary refill in all extremities. 5.RESP: Unlabored respiratory effort. Mild wheeze. No rhonchi or rales. 6.GI: Soft, Nontender/Nondistended, No hepatosplenomegaly. No guarding or rebound. 7.MSK: Normocephalic/Atraumatic, Extremities w/o deformity or ttp No cyanosis or clubbing, Normal movement of all extremities 8.Skin: Warm, Dry. No rashes or lesions. 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 Sensation grossly intact, no focal neurologic deficits. 10.Psych: (AAO) x3. Appropriate mood and affect Course Vital Signs Vital signs: Vital Signs Temperature 36.3 C L 09/22/23 19:28 Pulse 102 H 09/22/23 19:28 Respiratory Rate 30 H 09/22/23 19:28 Pulse Oximetry 96 09/22/23 19:28 Temperature 36.3 C L 09/22/23 19:28 Temperature Source Skin 09/22/23 19:28 Pulse 102 H 09/22/23 19:28 Respiratory Rate 30 H 09/22/23 19:28 Respiratory Effort Normal, Non-Labored, Labored 09/22/23 19:34 Blood Pressure Position Sitting 09/22/23 19:28 Pulse Oximetry 96 09/22/23 19:28 Oxygen Delivery Method Room Air 09/22/23 19:28 Oxygen Flow Rate 0 09/22/23 19:28 Medical Decision Making 78-year-old male with a past medical history of COPD, continued tobacco use, previous MS, high cholesterol, recent otitis media who was prescribed Augmentin, who is on aspirin and Plavix daily for his previous MIs, who presents today for shortness of breath via EMS. Patient states that he recently restarted smoking again, he spent the day with some friends who may have been smoking or doing other concerning things. He went to see his primary care provider today and was given a prescription for steroids. He has been using his inhaler at home but this has not been helping. He does admit to a cough for the last 3 days. He admits to mild chest tightness with breathing but denies any chest pain. He states that this feels different than his previous heart attacks. He denies vomiting or diarrhea. No fever at home. No other complaints at this time. When EMS arrived he was 80% on room air. He was giving a breathing treatment en route which notably improved his symptoms. Exam demonstrates mild wheezes, no rhonchi or rales. No calf tenderness. EKG shows no evidence of STEMI. Symptoms inconsistent clinically with ACS, however because of his history out of an abundance of precaution we will evaluate for this. We will give Solu-Medrol here, get a chest x-ray to rule out pneumonia, monitor closely and reassess. Suspect mild COPD exacerbation secondary to tobacco use. I did speak with the patient's 2 daughters, 1 daughter is very concerned that he has been spending time with other people smoking concerning things, and potentially around drugs. The other daughter feels somewhat differently. 2124 On reassessment patient is feeling better. Chest x-ray shows no pneumonia. Laboratory workup shows no white count. VBG shows no hypercarbia. Electrolytes normal. Renal function stable, troponin normal. No evidence talk to me about anything, no independent here. Unfortunately this is factually incorrect as I had seen, assessed, and reassessed the patient, multiple nurses had been in to see the patient multiple times. Unfortunately the patient felt that this was an adequate. He got up and ripped off all of his monitors, and started yelling and screaming saying that I am going to get the fuck out of here, and you cannot keep me!. I informed the patient that we certainly would not hold him against as well, however it was my recommendation that he stay for continued observation to make sure his oxygen remained stable while here in the emergency department. Patient did not agree with this sentiment, and again demanded to leave immediately. I had a very clear discussion on the benefit of admission and the risks associated with discharge including the unlikely but potential worst case scenario of or lifelong disability the patient has refused admission and would like to go home. Patient is of a appropriate age to make decisions. The patient is of sound mind, appears clinically sober, and has capacity to make decisions by my clinical exam. Respecting the patient's wishes, they will be discharged home. The patient is able to speak clearly. There is no demonstration of any slurring of speech. There is evidence of clear decision making capacity. Patient is able to ambulate well without any difficulty. There are no signs of ataxia or stumbling motions. Additionally the patient's daughter was outside, I did speak with her and discussed the case with Virginie. I discussed what we found, the results, and her father's current disposition. She understands. I made it clear that he can come back at any time if you would like to be reevaluated, but the daughter was concerned that her father has got like this in the past, and because of his previous choices would probably not be open to her suggestion for this. Patient is of a appropriate age to make decisions. The patient is of sound mind, appears clinically sober, and has capacity to make decisions by my clinical exam. We have provided options for treatment and discussed the risks and benefits of these options and refusing these options, including and disability specific to the patient's pathology. Patient is able to discuss the risks and benefits and alternatives of treatment and refusing treatment. We have tried to involve the patient's family or support group that was present here or by contacting them on the phone. The patient chooses to leave before evaluation and treatment is complete AGAINST MEDICAL ADVICE. FINDINGS: Lungs: Moderate pulmonary hyperexpansion with diaphragmatic flattening consistent with COPD/emphysematous changes. Moderate bilateral pulmonary fibrosis with basilar predominance, stable in appearance from CT 08/11/2023. There is mild chronic bandlike fibrosis and subsegmental atelectasis in the left base which is stable in appearance. No gross superimposed infiltrates or edema pattern. Pulmonary vasculature grossly normal. Pleural spaces: No pleural effusion. No pneumothorax. Skin folds project over the left mid lung. Heart/Mediastinum: Heart size normal. No tracheal/mediastinal shift. Bones/joints: No acute osseous abnormalities are identified. Osteopenia and moderate thoracolumbar spondylosis. Other findings: Lordotic projection and mild rightward rotation. IMPRESSION: 1. No acute findings. 2. Moderate emphysematous changes and chronic interstitial fibrosis with basilar predominance. 3. Chronic bandlike fibrosis and atelectasis in the left base, stable in appearance from prior imaging, with no gross superimposed pneumonia or edema. Quality:SDOH Health Related Social Needs: No Data to Display Discharge Plan Disposition Patient Disposition: Against Medical Advice Condition: Good Discharge Details Chief Complaint: SOB Clinical Impression: COPD exacerbation Primary Care Provider: Mike Burns ED Provider: Nghia Cabrera Home Meds and New Rx's Prescriptions: No Action aspirin 81 mg tablet,chewable 81 mg PO DAILY triamcinolone acetonide 0.1 % cream 1 applic topical BID PRN (Reason: pinna rash) Qty: 30 0RF losartan 100 mg tablet 100 mg PO DAILY Qty: 90 3RF fluticasone propionate 50 mcg/actuation spray,suspension 2 spray NS DAILY Qty: 1 8RF insulin glargine 100 unit/mL (3 mL) insulin pen 47 unit SC HS Qty: 45 3RF (DME) pen needle, diabetic [Advocate Pen Needle] 33 gauge x 5/32 needle See Rx Instructions .ROUTE .MEDSUPPLY Qty: 100 3RF Rx Instructions: inject once/day (DME) lancets [TRUEplus Lancets] 28 gauge misc See Rx Instructions .Route Qty: 100 3RF Rx Instructions: test once/day Trulicity 0.75 mg/0.5 mL pen injector 0.75 mg SC QWEEK Qty: 6 3RF prednisone 20 mg tablet 40 mg PO DAILY Qty: 10 0RF finasteride 5 mg tablet 5 mg PO DAILY Qty: 90 3RF clotrimazole-betamethasone 1-0.05 % cream 1 applic topical BID Qty: 45 0RF Rx Instructions: Apply pea-sized amount twice daily to penile skin as directed. 2 weeks only unless directed otherwise polyethylene glycol 3350 17 gram/dose powder 238 g PO ONCE Qty: 238 0RF Rx Instructions: take per colonoscopy instructions amlodipine 5 mg tablet 5 mg PO BID Qty: 180 3RF atorvastatin 80 mg tablet 80 mg PO QHS Qty: 90 3RF clopidogrel [Plavix] 75 mg tablet 75 mg PO DAILY Qty: 90 4RF Jardiance 25 mg tablet 25 mg PO DAILY Qty: 90 3RF ezetimibe 10 mg tablet 10 mg PO DAILY Qty: 90 4RF nitroglycerin [Nitrostat] 0.4 mg tablet, sublingual 0.4 mg Sublingual PRN Qty: 25 11RF Rx Instructions: 1 TAB SL PRN tamsulosin 0.4 mg capsule 0.8 mg PO DAILY Qty: 180 3RF (DME) Space Chamber Plus 1 EACH spacer 1 ea Miscellaneous PRN Qty: 1 infliximab [Remicade] 100 MG recon soln 1,000 mg IV .[id number] Patient Comments: 05/31/15 Jacqui at [facility] Rheumatology reports: 1000mg IV infusion every 6 months. Done at [facility]. DL 03/05/17 q 4 months. si pantoprazole 40 mg tablet,delayed release (DR/EC) 40 mg PO DAILY Qty: 90 3RF Rx Instructions: TAKE 6 HOURS APART FROM YOUR PLAVIX bupropion HCl 150 mg tablet sustained-release 12 hr 150 mg PO BID Qty: 180 3RF sildenafil 100 mg tablet 100 mg PO DAILY PRN (Reason: sexual activity) Qty: 5 12RF Hold Instructions: Resume on 03/01/23. Rx Instructions: administer 30 minutes to 4 hours before activity lorazepam [Ativan] 1 mg tablet 1 mg PO DAILY PRN (Reason: anxiety) Qty: 2 0RF Rx Instructions: take 1 pill about 1 hour prior to scheduled MRI - if still anxious when you check in at the hospital, may take 2nd pill gabapentin 300 mg capsule See Rx Instructions .ROUTE .COMPLEX Qty: 90 5RF Dose Instruction: TAKE ONE CAPSULE BY MOUTH THREE TIMES A DAY Rx Instructions: TAKE ONE CAPSULE BY MOUTH THREE TIMES A DAY (DME) blood-glucose meter [FreeStyle Lite Meter] Kit See Rx Instructions .ROUTE .MEDSUPPLY Qty: 1 0RF Rx Instructions: test once/day mupirocin 2 % ointment 1 applic topical TID Qty: 15 2RF (DME) Contour Test Strips Strip See Rx Instructions .Route Qty: 300 4RF Rx Instructions: Test three times daily albuterol sulfate [Ventolin HFA] 90 mcg/actuation HFA aerosol inhaler 2 inh INHALATION Q6H PRN (Reason: bronchospasm) Qty: 8.5 3RF acetaminophen 650 MG tablet extended release 650 mg PO Q8H PRN (Reason: Pain) Qty: 20 0RF epinephrine 0.3 mg/0.3 mL auto-injector 0.3 mg IM ONCE Qty: 2 0RF Rx Instructions: as a single dose; may repeat once lidocaine HCl [Lidocaine Viscous] 2 % solution 1 applic mucous membrane BID PRNQty: 100 0RF loratadine 10 mg capsule 10 mg PO DAILY Qty: 10 0RF diclofenac sodium 1 % gel 2 g topical QID Qty: 100 0RF Rx Instructions: apply to single elbow, wrist or hand; for hand includes palm/fingers/back of hand
[2023-09-22 19:53] LABS: BE (Venous) 4 mmol/L (-2-3); HCO3 (Venous) 28 mmol/L (23-28); O2 Sat (Venous) 82 %; TCO2 (Venous) 25 mmol/L (24-29); pCO2 (Venous) 44 mmHg (41-51); pH (Venous) 7.42 (7.31-7.41); pO2 (Venous) 43 mmHg
[2023-09-22 19:58] LABS: Abs Immature Grans 0.04 10^3/uL (0.0-0.06); Absolute Basophil Count 0.06 10^3/uL (0.0-0.2); Absolute Eosinophil Count 0.18 10^3/uL (0.0-0.7); Absolute Lymphocyte Count 0.32 10^3/uL (1.2-3.4); Absolute Monocyte Count 0.71 10^3/uL (0.1-0.8); Absolute Neutrophil Count 8.88 10^3/uL (1.2-6.7); Basophils % 0.6; Eosinophils % 1.8; HCT 47.3 % (40.0-50.0); HGB 15.8 g/dL (13.5-17.5); Immature Grans % 0.4; Lymphocytes % 3.1; MCH 31.1 pg (27.0-33.0); MCHC 33.4 % (32.0-36.0); MCV 93 fL (80-95); MPV 10.7 fL (8.0-11.0); Neutrophils % 87.1; Platelet Count 173 10^3/uL (130-400); RBC 5.08 10^6/uL (4.36-5.78); RDW 14.6 % (11.8-14.1); RDW-SD 50.2 fL; WBC 10.19 10^3/uL (4.4-10.8)
[2023-09-22 20:16] LABS: ALT 33 U/L (16-63); AST 17 U/L (15-37); Albumin 3.3 g/dL (3.4-5.0); Alkaline Phosphatase 89 U/L (46-116); Anion Gap 6.9 mmol/L (3-11); BUN 25 mg/dL (7-18); Bilirubin, Total 0.6 mg/dL (0.2-1.0); CO2 28.1 mmol/L (21.0-32.0); CREATININE 1.1 mg/dL (0.70-1.30); Calcium 9.4 mg/dL (8.5-10.1); Chloride 105 mmol/L (98-107); Estimated GFR 69.57 (mL/min/1.73m2); Glucose 122 mg/dL (74-106); Sodium 140 mmol/L (136-145); Total Protein 6.9 g/dL (6.4-8.2); Troponin I < 50 ng/L (< or =60)
[2023-09-22 20:26] LABS: COVID-19 PCR Negative (Negative); Influenza A PCR Negative (Negative); Influenza B PCR Negative (Negative); RSV PCR Negative (Negative)
[2023-09-22] MEDS: Albuterol/Ipratropium 3 ML UPD VIAL UPD (20:26)
[2023-09-22] MEDS: methylPREDNISolone SUCC 125 MG VIAL IVP (20:26)
[2023-09-22 20:27] LABS: Source Nasopharynx
--- NOTE | 2023-09-22 20:31 | DI.VRAD_ITS ---
PROCEDURE INFORMATION: Exam: XR Chest Exam date and time: 09/22/2023 8:01 PM Age: 78 years old Clinical indication: Shortness of breath and other: Copd TECHNIQUE: Imaging protocol: Radiologic exam of the chest. Views: 1 view. COMPARISON: CT CHEST WO 08/11/2023 8:23 AM FINDINGS: Lungs: Moderate pulmonary hyperexpansion with diaphragmatic flattening consistent with COPD/emphysematous changes. Moderate bilateral pulmonary fibrosis with basilar predominance, stable in appearance from CT 08/11/2023. There is mild chronic bandlike fibrosis and subsegmental atelectasis in the left base which is stable in appearance. No gross superimposed infiltrates or edema pattern. Pulmonary vasculature grossly normal. Pleural spaces: No pleural effusion. No pneumothorax. Skin folds project over the left mid lung. Heart/Mediastinum: Heart size normal. No tracheal/mediastinal shift. Bones/joints: No acute osseous abnormalities are identified. Osteopenia and moderate thoracolumbar spondylosis. Other findings: Lordotic projection and mild rightward rotation. IMPRESSION: 1. No acute findings. 2. Moderate emphysematous changes and chronic interstitial fibrosis with basilar predominance. 3. Chronic bandlike fibrosis and atelectasis in the left base, stable in appearance from prior imaging, with no gross superimposed pneumonia or edema. Dictated and Authenticated by: Jignesh Garsia MD. Ordering:JUDI Agrawal MD
--- NOTE | 2023-09-22 20:52 | NUR.NOTE ---
Nursing Note: patient satting 85% on room air trial. Turned o2 back to 4L NC
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
[2023-09-22 21:30] LABS: *AMPHETAMINES SCREEN URINE Negative (Negative); *BARBITURATES SCREEN URINE Negative (Negative); *BENZODIAZEPINES SCREEN URINE Negative (Negative); Cannabinoids THC Negative (Negative); Cocaine Screen,Urine Negative (Negative); METHADONE URINE SCREEN Negative (Negative); OPIATES URINE SCREEN Negative (Negative)
[2023-09-22 21:38] LABS: Tricyclic Antidepressants Negative (Negative)
== END 2023-09-22 21:26 | disposition left against medical advice (07) ==
PROVIDERS: Emergency Provider Student in an Organized Health Care Education/Training Program; PCP Family Medicine
DX: J44.1 Chronic obstructive pulmonary disease with (acute) exacerbation (principal); I25.10 Atherosclerotic heart disease of native coronary artery without angina pectoris; I25.2 Old myocardial infarction; I10 Essential (primary) hypertension; E11.9 Type 2 diabetes mellitus without complications; E78.00 Pure hypercholesterolemia, unspecified; Z11.52 Encounter for screening for COVID-19; Z79.4 Long term (current) use of insulin; Z79.02 Long term (current) use of antithrombotics/antiplatelets; Z79.82 Long term (current) use of aspirin; F17.210 Nicotine dependence, cigarettes, uncomplicated; Z79.899 Other long term (current) drug therapy
CPT/HCPCS: 51798; 80053; 80307; 82805; 87637; 93005; 96374; 99213; 99284; 71045; 84484; 85025; 93010; J2930; J7620

== ENCOUNTER → 2023-10-07 07:30 | Outpatient (BNVA) | payer MEDICARE, SELFPAY | PROVIDERS: PCP Family Medicine; Referring Provider Family Medicine; Visit Provider Physical Therapy Assistant | DX: Z12.11 Encounter for screening for malignant neoplasm of colon (principal); Z86.010 Personal history of colon polyps ==

== ENCOUNTER 2023-10-19 18:21 | Emergency (ER) | payer MEDICARE, SELFPAY ==
[2023-10-19 18:48] VITALS: BP 100/58; PULSE 82; RESP 97; TEMP 36.5
--- NOTE | 2023-10-19 19:00 | DI.RAD_ITS ---
Exam(s) XR THUMB RT EXAM: XR THUMB RT CLINICAL HISTORY: THUMB PAIN. TECHNIQUE: 2D digital imaging was performed. COMPARISON: No exams were available for comparison FINDINGS: 3 views No evidence of acute fracture nor dislocation. There are significant degenerative changes at the 1st carpometacarpal joint, this being the articulat ion between the thumb metacarpal and trapezium of the distal carpal row. There is a degenerative sub articular cyst in the lateral aspect of the base of the thumb metacarpal. Another bone cyst is noted in the distal half of the scaphoid-navicular. No radiopaque foreign body. No erosions. IMPRESSION: No fractures. Degenerative changes at the 1st carpometacarpal joint level. DATA REPOSITORY: RADIATION DOSE DELIVERED:
[2023-10-19] MEDS: Acetaminophen 500 MG TAB 1000 MG PO (19:45)
--- NOTE | 2023-10-19 19:56 | DI.VRAD_ITS ---
PROCEDURE INFORMATION: Exam: XR Right Finger(s) Exam date and time: 10/19/2023 7:29 PM Age: 78 years old Clinical indication: Pain; Finger(s); Right TECHNIQUE: Imaging protocol: Radiologic exam of the right fingers. Views: Minimum 2 views. COMPARISON: No relevant prior studies available. FINDINGS: Bones/joints: Three views of the right thumb reveal no acute fracture. Degenerative change is noted at the carpometacarpal joint at the base of the thumb with irregular joint space narrowing and radial subluxation of the metacarpal relative to the trapezium. There is suggestion of a 1.0 cm x 0.7 cm round geographic lytic lesion at the base of the 1st metacarpal with a thin sclerotic margin. There is suggestion of a similar lesion measuring 0.7 cm x 0.8 cm in the scaphoid bone. There is calcific density material projecting between the 1st and 2nd metacarpals on the oblique view of the thumb and between the 2nd and 3rd metacarpals on the lateral view of the thumb. Vascular calcification, radiopaque foreign material, or contaminant on the film cassette could produce this appearance. There is also a punctate radiodensity projecting along the thumbnail, suspected to represent foreign material. Soft tissues: No gross focal soft tissue abnormality is seen. IMPRESSION: 1. No acute fracture seen in the thumb. 2. Degenerative change at the base of the thumb. 3. Small round geographic lytic lesion suggested at the base of the 1st metacarpal and in the scaphoid bone. Though not well characterized by today's exam, the narrow zone of transition suggests a slow pattern of growth. Pseudolesions are not excluded. Comparison with prior imaging is recommended. These could be further evaluated by MR imaging, as clinically warranted. Dictated and Authenticated by: Benjamin Alas MD. Ordering:[facility] Sindy Pickett MD
[2023-10-19 20:12] VITALS: BP 140/78; PULSE 62; RESP 18; O2SAT 99
--- NOTE | 2023-10-19 21:41 | W.ED.GENAD ---
HPI General Date/Time Provider Initiated Documentation: 10/19/23 18:50. Limitations to Documentation: no limitations. Information obtained by: patient. HPI Narrative: 78-year-old gentleman with past medical history of COPD, diabetes, rheumatoid arthritis presents for evaluation of right thumb pain. Reports has been ongoing for the last week. He does a lot of work with his hands and he is not sure of any specific event that may have started this pain. He denies any fever, pain is localized to the thumb. He is did not notice any wounds or drainage Related Data Home Medications Medication Instructions Recorded Confirmed inhalational spacing device (Space ##1 05/27/15 10/19/23 Chamber Plus) infliximab 100 mg intravenous 1,000 mg IV .[id number] 05/31/15 10/19/23 solution (Remicade) acetaminophen 650 mg 650 mg PO Q8H PRN Pain ##20 04/30/17 10/19/23 tablet,extended release epinephrine 0.3 mg/0.3 mL 0.3 mg (0.3 mL) IM ONCE #2 ea 03/12/21 10/19/23 injection, auto-injector aspirin 81 mg chewable tablet 81 mg PO DAILY 05/27/21 10/19/23 loratadine 10 mg capsule 10 mg PO DAILY #10 caps 12/28/21 10/19/23 clotrimazole-betamethasone 1 1 applic topical BID #45 grams 03/04/22 10/19/23 %-0.05 % topical cream diclofenac sodium 1 % topical gel 2 g topical QID #100 grams 04/24/22 10/19/23 triamcinolone acetonide 0.1 % 1 applic topical BID PRN pinna 12/10/22 10/19/23 topical cream rash #30 grams polyethylene glycol 3350 17 238 g PO ONCE colonoscopy prep 02/01/23 10/19/23 gram/dose oral powder #238 grams bupropion HCl 150 mg tablet,12 hr 150 mg PO BID #180 tabs 02/16/23 10/19/23 sustained-release amlodipine 5 mg tablet 5 mg PO BID #180 tabs 03/18/23 10/19/23 atorvastatin 80 mg tablet 80 mg PO QHS #90 tabs 03/18/23 10/19/23 clopidogrel 75 mg tablet (Plavix) 75 mg PO DAILY #90 tabs 03/18/23 10/19/23 empagliflozin 25 mg tablet 25 mg PO DAILY #90 tabs 03/18/23 10/19/23 (Jardiance) ezetimibe 10 mg tablet 10 mg PO DAILY #90 tabs 03/18/23 10/19/23 lidocaine HCl 2 % mucosal solution 1 applic mucous membrane BID PRN 03/27/23 10/19/23 (Lidocaine Viscous) #100 mL sildenafil 100 mg tablet 100 mg PO DAILY PRN sexual 04/12/23 10/19/23 activity #5 tabs lorazepam 1 mg tablet (Ativan) 1 mg PO DAILY PRN anxiety #2 tabs 05/14/23 10/19/23 gabapentin 300 mg capsule See Rx Instructions .Route 05/31/23 10/19/23 .COMPLEX #90 caps blood-glucose meter (FreeStyle #1 ea 06/01/23 10/19/23 Lite Meter kit) tamsulosin 0.4 mg capsule 0.8 mg (2 x 0.4 mg) PO DAILY #180 06/01/23 10/19/23 caps nitroglycerin 0.4 mg sublingual 0.4 mg sublingual PRN #25 tab-caps 06/23/23 10/19/23 tablet (Nitrostat) mupirocin 2 % topical ointment 1 applic topical TID #15 grams 06/28/23 10/19/23 blood sugar diagnostic (Contour #300 ea 07/27/23 10/19/23 Test Strips) albuterol sulfate 90 mcg/actuation 2 inh inhalation Q6H PRN 09/11/23 10/19/23 aerosol inhaler (Ventolin HFA) bronchospasm #8.5 grams dulaglutide 0.75 mg/0.5 mL 0.75 mg (0.5 mL) subcut QWEEK #6 mL 09/22/23 10/19/23 subcutaneous pen injector ([facility] finasteride 5 mg tablet 5 mg PO DAILY #90 tabs 09/22/23 10/19/23 fluticasone propionate 50 2 spray NS DAILY #1 g 09/22/23 10/19/23 mcg/actuation nasal spray,suspension insulin glargine 100 unit/mL (3 47 unit (0.47 mL) subcut HS #45 mL 09/22/23 10/19/23 mL) subcutaneous pen losartan 100 mg tablet 100 mg PO DAILY #90 tabs 09/22/23 10/19/23 pen needle, diabetic 33 gauge x #100 ea 09/22/23 10/19/2332 (Advocate Pen Needle) lancets 28 gauge (TRUEplus Lancets) #100 ea 09/25/23 10/19/23 oxygen 2 l Not Applicable .continuous 09/29/23 10/19/23 #10,000 L pantoprazole 40 mg tablet,delayed 40 mg PO DAILY #90 tabs 10/16/23 10/19/23 release cephalexin 500 mg capsule 500 mg PO QID #40 caps 10/19/23 10/19/23 Previous Rx's Medication Instructions Recorded acetaminophen 650 mg 650 mg PO Q8H PRN Pain ##20 04/30/17 tablet,extended release epinephrine 0.3 mg/0.3 mL 0.3 mg (0.3 mL) IM ONCE #2 ea 03/12/21 injection, auto-injector loratadine 10 mg capsule 10 mg PO DAILY #10 caps 12/28/21 clotrimazole-betamethasone 1 1 applic topical BID #45 grams 03/04/22 %-0.05 % topical cream diclofenac sodium 1 % topical gel 2 g topical QID #100 grams 04/24/22 triamcinolone acetonide 0.1 % 1 applic topical BID PRN pinna 12/10/22 topical cream rash #30 grams polyethylene glycol 3350 17 238 g PO ONCE colonoscopy prep 02/01/23 gram/dose oral powder #238 grams bupropion HCl 150 mg tablet,12 hr 150 mg PO BID #180 tabs 02/16/23 sustained-release amlodipine 5 mg tablet 5 mg PO BID #180 tabs 03/18/23 atorvastatin 80 mg tablet 80 mg PO QHS #90 tabs 03/18/23 clopidogrel 75 mg tablet (Plavix) 75 mg PO DAILY #90 tabs 03/18/23 empagliflozin 25 mg tablet 25 mg PO DAILY #90 tabs 03/18/23 (Jardiance) ezetimibe 10 mg tablet 10 mg PO DAILY #90 tabs 03/18/23 lidocaine HCl 2 % mucosal solution 1 applic mucous membrane BID PRN 03/27/23 (Lidocaine Viscous) #100 mL sildenafil 100 mg tablet 100 mg PO DAILY PRN sexual 04/12/23 activity #5 tabs lorazepam 1 mg tablet (Ativan) 1 mg PO DAILY PRN anxiety #2 tabs 05/14/23 gabapentin 300 mg capsule See Rx Instructions .Route 05/31/23 .COMPLEX #90 caps blood-glucose meter (FreeStyle #1 ea 06/01/23 Lite Meter kit) tamsulosin 0.4 mg capsule 0.8 mg (2 x 0.4 mg) PO DAILY #180 06/01/23 caps nitroglycerin 0.4 mg sublingual 0.4 mg sublingual PRN #25 tab-caps 06/23/23 tablet (Nitrostat) mupirocin 2 % topical ointment 1 applic topical TID #15 grams 06/28/23 blood sugar diagnostic (Contour #300 ea 07/27/23 Test Strips) albuterol sulfate 90 mcg/actuation 2 inh inhalation Q6H PRN 09/11/23 aerosol inhaler (Ventolin HFA) bronchospasm #8.5 grams dulaglutide 0.75 mg/0.5 mL 0.75 mg (0.5 mL) subcut QWEEK #6 mL 09/22/23 subcutaneous pen injector (TrulicPixelapse) finasteride 5 mg tablet 5 mg PO DAILY #90 tabs 09/22/23 fluticasone propionate 50 2 spray NS DAILY #1 g 09/22/23 mcg/actuation nasal spray,suspension insulin glargine 100 unit/mL (3 47 unit (0.47 mL) subcut HS #45 mL 09/22/23 mL) subcutaneous pen losartan 100 mg tablet 100 mg PO DAILY #90 tabs 09/22/23 pen needle, diabetic 33 gauge x #100 ea 09/22/23 5/32 (Advocate Pen Needle) lancets 28 gauge (TRUEplus Lancets) #100 ea 09/25/23 oxygen 2 l Not Applicable .continuous 09/29/23 #10,000 L pantoprazole 40 mg tablet,delayed 40 mg PO DAILY #90 tabs 10/16/23 release cephalexin 500 mg capsule 500 mg PO QID #40 caps 10/19/23 Allergies Allergy/AdvReac Type Severity Reaction Status Date / Time venom-honey bee Allergy Severe ANAPHYLAXSI Verified 10/19/23 18:51 [bee venom (honey bee)] S Sulfa (Sulfonamide Allergy Unknown unknown Verified 10/19/23 18:51 Antibiotics) leflunomide [From Arava] AdvReac Intermediate DIARRHEA Verified 10/19/23 18:51 metformin AdvReac Intermediate diarrhea Verified 10/19/23 18:51 General Stated Complaint: Orthopedic STAR: 4 Exam Narrative Exam Narrative: Review of Systems: All systems reviewed & are unremarkable except as noted in HPI and below Well-developed, no acute distress NCAT PERRL, normal conjunctiva RRR Unlabored respiratory effort Nondistended abdomen Right thumb with slight swelling, full range of motion intact, no warmth, perhaps a subungual hematoma but not clear given the discoloration of the nail. No signs of fluctuance or paronychia no streaking No rashes or lesions. no focal neurologic deficits Appropriate mood and affect Course Vital Signs Vital signs: Vital Signs Temperature 36.5 C 10/19/23 18:48 Pulse 82 10/19/23 18:48 Respiratory Rate 97 H 10/19/23 18:48 Blood Pressure 100/58 L 10/19/23 18:48 Temperature 36.5 C 10/19/23 18:48 Temperature Source Temporal Artery Scan 10/19/23 18:48 Pulse 62 10/19/23 20:12 Respiratory Rate 18 10/19/23 20:12 Respiratory Effort Normal, Non-Labored 10/19/23 19:00 Blood Pressure 140/78 10/19/23 20:12 Blood Pressure Position Sitting 10/19/23 18:48 Pulse Oximetry 99 10/19/23 20:12 Oxygen Delivery Method Room Air 10/19/23 18:48 Oxygen Flow Rate 0 10/19/23 18:48 Pain Level 8 10/19/23 18:48 Medical Decision Making Emergent evaluation of right thumb pain. Unknown trauma. No evidence of infection on examination. He does have a history of rheumatoid arthritis and gets Remicade infusions. X-ray obtained, no obvious abnormality. Considered gout but given his history of rheumatoid, this is likely more related to that. Recommend Motrin and Tylenol for pain. No signs of infection, felon, paronychia or flexor tenosynovitis. If symptoms or not improving would recommend reevaluation with either PCP or motor block mechanic. Medical Records Medical records reviewed: Yes I reviewed the patient's medical records. Quality:SDOH Health Related Social Needs: No Data to Display PFSH All Active Problems Pain of right thumb (Acute) Ear pain, right (Acute) Impetigo (Acute) COPD exacerbation (Acute) [place] (dyspnea on exertion) (Acute) Cellulitis (Acute) Epistaxis (Acute) Nasal vestibulitis (Acute) Sensorineural hearing loss, bilateral (Acute) Impacted cerumen, bilateral (Acute) Weight loss (Acute) Elevated PSA, between 10 and less than 20 ng/ml (Acute) Chronic obstructive lung disease (Chronic) pulmonary fibrosis on chest xray ongoing tobacco use add back budesonide nebs to see if we can improve cough Diabetes mellitus (Chronic 05/05/13) check A1c and creat Gastroesophageal reflux disease (Chronic) Hyperlipidemia (Chronic 05/05/13) Kidney stone (Acute 09/14/14) recurrent x3 on left [facility] Urology 10/12/16-[facility]; F/U Dr. Fair Male erectile disorder (Acute 08/29/13) Palpitations (Acute 11/04/12) multiple PVCs, bradycardia (2013) ([facility], Dr Abraham, echo normal LVEF and stress test neg ischemia) Rheumatoid arthritis (Chronic 05/05/13) [facility], Dr Leon Smoker (Chronic) Tubular adenoma (Acute) 11/20 COLONOSCOPY: ONE TUBULOVILLOUS ADENOMA & TWO TUBULAR ADENOMAS. 05/22/13: DR. Mtaeusz [place]:TUBULAR ADENOMAS 11/13/16: Dr Jian Crump: tublular and tubulovillous adenomas Erectile dysfunction (Chronic) Lipoma (Acute) Depressive disorder (Chronic) RCA occlusion (Acute) 05/25/19 [facility] Bradycardia (Acute) Fatigue (Acute) Chronic knee pain (Acute) Arthritis of knee, right (Acute) Bilateral hip joint arthritis (Acute) Degenerative lumbar spinal stenosis (Acute) Adenomatous polyps (Acute) Serrated adenoma of colon (Acute ~07/2020) Mallet deformity of left ring finger (Acute 11/30/20) with avulsion fracture Anaphylaxis due to hymenoptera venom (Acute) Cellulitis of ear (Acute) Aortic atherosclerosis (Acute) Emphysema lung (Acute) Tubular adenoma of colon (Acute) COPD with acute exacerbation (Acute) 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) Cardiomyopathy (Acute) Otitis externa, left (Acute) Medical History Eczema Hypoxemia Acute kidney injury Sepsis COPD (chronic obstructive pulmonary disease) BPH loc w urin obs/LUTS Myocardial infarction 2020 x2 stents Hypertension same meds, good BP here today CVA (cerebral vascular accident) (11/21/17) ASCVD (arteriosclerotic cardiovascular disease) (05/05/13) 2 NEW STENTS 04/22 H/O IMI; angioplasty and stent; [place] , 02/11; CVA/TIA Surgical History Stented coronary artery 05/25/19 [facility]; s/p stent of old stent-KB History of incisional hernia repair History of knee surgery RESECTION ANGIOFIBROMA;RIGHT FOOT 02/04/18 KNEE REPAIR RIGHT Hernia Repair, Incisional Excision, Lipoma (05/19/16) posterior neck Colostomy (~2006) TEMP W/ REVISION Colonoscopy - MAC (11/13/16) Colonoscopy - MAC (05/16/13) Family History Mother Essential hypertension Heart disease Stroke Father Stroke Brother Heart disease Family History Diabetes Heart disease Cancer Brother No problems noted. Brother No problems noted. Sister No problems noted. Sister Alcohol abuse Social History Smoking/Tobacco Use Status: Current every day Tobacco Type: cigarettes Tobacco: How many years used: 60 Quit status: has quit before Second Hand Exposure: Yes Smoking risk assessment performed?: Yes Alcohol Intake: former Drug use: Never Substance use type: does not use Household members: family Housing: house Communication Needs: None Do you need help understanding health information?: Rarely Pets and animals: Yes Pets and animals: cat(s) Sexually active: No Current gender identity: male What is your relationship status?: How often do you talk on the phone with friends or family?: three or more times per week How often do you get together with friends or relatives?: twice per week How often do you attend restoration or christianity services?: decline to answer Do you belong to any clubs or organized social groups?: no Panel score (0-1 are the most socially isolated patients): 1 What type of physical activity do you participate in: walking Duration: < 15 minutes/day Frequency: 1-2 times per week Monika/Druze: None Special monika needs: No Seatbelt use: sometimes Helmet use: No Drive intox or ride w/intox mechanic welder truck driver: No Do you feel safe at home: Yes Do you feel safe in your relationship?: Yes Additional Social history: Lives with roommate in trailer at [facility]. 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 4 adult kids in the area. Discharge Plan Disposition Patient Disposition: Home Discharge Details Clinical Impression: Pain of right thumb Primary Care Provider: Mike Burns ED Provider: Amy Callahan Home Meds and New Rx's Prescriptions: No Action aspirin 81 mg tablet,chewable 81 mg PO DAILY triamcinolone acetonide 0.1 % cream 1 applic topical BID PRN (Reason: pinna rash) Qty: 30 0RF losartan 100 mg tablet 100 mg PO DAILY Qty: 90 3RF fluticasone propionate 50 mcg/actuation spray,suspension 2 spray NS DAILY Qty: 1 8RF insulin glargine 100 unit/mL (3 mL) insulin pen 47 unit SC HS Qty: 45 3RF (DME) pen needle, diabetic [Advocate Pen Needle] 33 gauge x 5/32 needle See Rx Instructions .ROUTE .MEDSUPPLY Qty: 100 3RF Rx Instructions: inject once/day Trulicity 0.75 mg/0.5 mL pen injector 0.75 mg SC QWEEK Qty: 6 3RF finasteride 5 mg tablet 5 mg PO DAILY Qty: 90 3RF cephalexin 500 mg capsule 500 mg PO QID Qty: 40 0RF clotrimazole-betamethasone 1-0.05 % cream 1 applic topical BID Qty: 45 0RF Rx Instructions: Apply pea-sized amount twice daily to penile skin as directed. 2 weeks only unless directed otherwise polyethylene glycol 3350 17 gram/dose powder 238 g PO ONCE Qty: 238 0RF Rx Instructions: take per colonoscopy instructions amlodipine 5 mg tablet 5 mg PO BID Qty: 180 3RF atorvastatin 80 mg tablet 80 mg PO QHS Qty: 90 3RF clopidogrel [Plavix] 75 mg tablet 75 mg PO DAILY Qty: 90 4RF Jardiance 25 mg tablet 25 mg PO DAILY Qty: 90 3RF ezetimibe 10 mg tablet 10 mg PO DAILY Qty: 90 4RF nitroglycerin [Nitrostat] 0.4 mg tablet, sublingual 0.4 mg Sublingual PRN Qty: 25 11RF Rx Instructions: 1 TAB SL PRN tamsulosin 0.4 mg capsule 0.8 mg PO DAILY Qty: 180 3RF oxygen 2 l Not Applicable .continuous Qty: 59413 0RF (DME) Space Chamber Plus 1 EACH spacer 1 ea Miscellaneous PRN Qty: 1 infliximab [Remicade] 100 MG recon soln 1,000 mg IV .[id number] Patient Comments: 05/31/15 Jacqui at [facility] Rheumatology reports: 1000mg IV infusion every 6 months. Done at [facility]. DL 03/05/17 q 4 months. si bupropion HCl 150 mg tablet sustained-release 12 hr 150 mg PO BID Qty: 180 3RF sildenafil 100 mg tablet 100 mg PO DAILY PRN (Reason: sexual activity) Qty: 5 12RF Hold Instructions: Resume on 03/01/23. Rx Instructions: administer 30 minutes to 4 hours before activity lorazepam [Ativan] 1 mg tablet 1 mg PO DAILY PRN (Reason: anxiety) Qty: 2 0RF Rx Instructions: take 1 pill about 1 hour prior to scheduled MRI - if still anxious when you check in at the hospital, may take 2nd pill gabapentin 300 mg capsule See Rx Instructions .ROUTE .COMPLEX Qty: 90 5RF Dose Instruction: TAKE ONE CAPSULE BY MOUTH THREE TIMES A DAY Rx Instructions: TAKE ONE CAPSULE BY MOUTH THREE TIMES A DAY (DME) blood-glucose meter [FreeStyle Lite Meter] Kit See Rx Instructions .ROUTE .MEDSUPPLY Qty: 1 0RF Rx Instructions: test once/day mupirocin 2 % ointment 1 applic topical TID Qty: 15 2RF (DME) Contour Test Strips Strip See Rx Instructions .Route Qty: 300 4RF Rx Instructions: Test three times daily albuterol sulfate [Ventolin HFA] 90 mcg/actuation HFA aerosol inhaler 2 inh INHALATION Q6H PRN (Reason: bronchospasm) Qty: 8.5 3RF (DME) lancets [TRUEplus Lancets] 28 gauge misc See Rx Instructions .Route Qty: 100 3RF Rx Instructions: test once/day pantoprazole 40 mg tablet,delayed release (DR/EC) 40 mg PO DAILY Qty: 90 3RF Rx Instructions: TAKE 6 HOURS APART FROM YOUR PLAVIX acetaminophen 650 MG tablet extended release 650 mg PO Q8H PRN (Reason: Pain) Qty: 20 0RF epinephrine 0.3 mg/0.3 mL auto-injector 0.3 mg IM ONCE Qty: 2 0RF Rx Instructions: as a single dose; may repeat once lidocaine HCl [Lidocaine Viscous] 2 % solution 1 applic mucous membrane BID PRNQty: 100 0RF loratadine 10 mg capsule 10 mg PO DAILY Qty: 10 0RF diclofenac sodium 1 % gel 2 g topical QID Qty: 100 0RF Rx Instructions: apply to single elbow, wrist or hand; for hand includes palm/fingers/back of hand Discharge Instructions Additional Instructions: no signs of infection and no broken bones today try motrin or tylenol as needed for pain if symptoms persist or worsen, please follow up with your motor block mechanic or your PCP Discharge Data Discharge Date/Time-TO BE ENTERED AT DEPARTURE: 10/19/23 20:13
== END 2023-10-19 20:13 | disposition home or self-care (01) ==
PROVIDERS: Emergency Provider Emergency Medicine; PCP Family Medicine
DX: M79.644 Pain in right finger(s) (principal); J44.9 Chronic obstructive pulmonary disease, unspecified; I25.10 Atherosclerotic heart disease of native coronary artery without angina pectoris; I25.2 Old myocardial infarction; I10 Essential (primary) hypertension; M06.9 Rheumatoid arthritis, unspecified; Z86.73 Personal history of transient ischemic attack (TIA), and cerebral infarction without residual deficits; Z95.5 Presence of coronary angioplasty implant and graft; Z79.82 Long term (current) use of aspirin; Z79.02 Long term (current) use of antithrombotics/antiplatelets; Z79.4 Long term (current) use of insulin; F17.210 Nicotine dependence, cigarettes, uncomplicated
CPT/HCPCS: 99283; 73140

== ENCOUNTER 2023-10-27 02:25 | Outpatient (RCR) | payer MEDICARE, SELFPAY ==
[2023-07-14 00:02] VITALS: BP 132/78; PULSE 50; RESP 17; TEMP 36.6
[2023-10-27] VITALS (9 sets, daily range): BP systolic 118–146; BP diastolic 68–82; PULSE 54–71; RESP 16–20; TEMP 36.3–36.9; O2SAT 92–95
[2023-10-27] MEDS: Acetaminophen 325 MG TAB 650 MG PO (07:47)
[2023-10-27] MEDS: diphenhydrAMINE 25 MG CAP PO (07:48)
[2023-10-27] MEDS: riTUXimab-PVVR 1,000 MG in Normal Saline 150 ML 62.5 MG IVPB (07:58)
[2023-10-27] MEDS: Normal Saline Flush 10 ML SYR IVP (07:58)
== END 2023-11-11 23:59 | disposition home or self-care (01) ==
LOC: INF 02:25
PROVIDERS: PCP Family Medicine; Visit Provider Nurse Practitioner Acute Care
DX: M06.9 Rheumatoid arthritis, unspecified (principal)
CPT/HCPCS: 96365; 96366; Q5119

== ENCOUNTER 2023-11-01 05:09 | Outpatient (CLI) | payer MEDICARE, SELFPAY ==
--- NOTE | 2023-11-01 11:56 | W.PFT ---
Date of service: 11/01/23 Time of Service: 10:07 Pulmonary Function Test Result Indications: Pre-op for colonoscopy Interpretation Spirometry: There is mild airflow limitation. No bronchodilator response. Lung Volumes: Normal lung volumes Diffusion Capacity: Very decreased diffusion Airway Pressure: Normal airways resistance Impression Mild airflow obstruction with a severely decreased diffusion. Note: When compared to 2010, there has been a decrease in diffusion but other tests are stable. Clinical Correlation therefore is recommended.
== END 2023-11-01 05:10 | disposition home or self-care (01) ==
LOC: RT 05:09
PROVIDERS: PCP Family Medicine; Visit Provider Surgery
DX: Z01.818 Encounter for other preprocedural examination (principal)
CPT/HCPCS: 94060; 94726; 94729

== ENCOUNTER 2023-11-10 10:25 | Outpatient (CLI) | payer MEDICARE, SELFPAY ==
[2023-11-10 10:24] LABS: Abs Immature Grans 0.03 10^3/uL (0.0-0.06); Absolute Basophil Count 0.07 10^3/uL (0.0-0.2); Absolute Eosinophil Count 0.27 10^3/uL (0.0-0.7); Absolute Lymphocyte Count 1.77 10^3/uL (1.2-3.4); Absolute Monocyte Count 1.01 10^3/uL (0.1-0.8); Absolute Neutrophil Count 6.04 10^3/uL (1.2-6.7); Basophils % 0.8; Eosinophils % 2.9; HCT 49.8 % (40.0-50.0); HGB 16.5 g/dL (13.5-17.5); Immature Grans % 0.3; Lymphocytes % 19.3; MCHC 33.1 % (32.0-36.0); MCV 93 fL (80-95); MPV 10.9 fL (8.0-11.0); Neutrophils % 65.7; Platelet Count 213 10^3/uL (130-400); RBC 5.33 10^6/uL (4.36-5.78); RDW 14.6 % (11.8-14.1); RDW-SD 50.3 fL; WBC 9.19 10^3/uL (4.4-10.8)
[2023-11-10 10:33] LABS: ESR 14 mm/hr (0-20)
[2023-11-10 10:33] LABS: Bilirubin Negative (Negative); Blood Negative (Negative); Clarity Clear (Clear); Glucose >=1000 mg/dL (Negative); Ketones Negative (Negative); Leukocyte Esterase Negative (Negative); Nitrite Negative (Negative); Specific Gravity 1.015 (1.005-1.025); Urobilinogen 0.2 mg/dL (Up to 0.2); pH 6.5 (5-8)
[2023-11-10 10:40] LABS: Bacteria Rare HPF (Negative); C & S Indicated? No; Casts Negative LPF (Negative); Crystals Negative HPF (Negative); Epithelial Cells Rare HPF (Negative); Mucus Trace (Negative); RBC 0-2 HPF (0-2); WBC 0-2 HPF (0-5)
[2023-11-10 11:07] LABS: ALT 22 U/L (16-63); AST 15 U/L (15-37); Albumin 3.5 g/dL (3.4-5.0); Alkaline Phosphatase 108 U/L (46-116); Anion Gap 9.2 mmol/L (3-11); BUN 21 mg/dL (7-18); Bilirubin, Total 0.5 mg/dL (0.2-1.0); CO2 27.8 mmol/L (21.0-32.0); Calcium 9.3 mg/dL (8.5-10.1); Chloride 105 mmol/L (98-107); Glucose 129 mg/dL (74-106); Potassium 4.1 mmol/L (3.5-5.1); Sodium 142 mmol/L (136-145); Total Protein 7.1 g/dL (6.4-8.2)
[2023-11-10 11:09] LABS: C-Reactive Protein < 0.50 mg/dL (<or=0.5)
[2023-11-11 09:57] LABS: IgG 734 mg/dL (610-1616)
== END 2023-11-10 10:26 | disposition home or self-care (01) ==
LOC: LBO 10:26
PROVIDERS: PCP Family Medicine; Visit Provider Internal Medicine Rheumatology
DX: M05.79 Rheumatoid arthritis with rheumatoid factor of multiple sites without organ or systems involvement (principal); I95.9 Hypotension, unspecified; R82.998 Other abnormal findings in urine; R79.89 Other specified abnormal findings of blood chemistry; Z79.899 Other long term (current) drug therapy
CPT/HCPCS: 36415; 80053; 82784; 85652; 81003; 81015; 85025; 86140

== ENCOUNTER 2023-11-23 04:12 | Outpatient (CLI) | payer MEDICARE, SELFPAY ==
[2023-11-23 17:28] LABS: PSA, Diagnostic 2.9 ng/mL (<=6.5)
== END 2023-11-23 04:13 | disposition home or self-care (01) ==
LOC: LBO 04:13
PROVIDERS: PCP Family Medicine; Visit Provider Nurse Practitioner Gerontology
DX: R97.20 Elevated prostate specific antigen [PSA] (principal)
CPT/HCPCS: 36415; 84153

== ENCOUNTER → 2023-11-30 10:14 | Outpatient (BNVA) | payer MEDICARE, SELFPAY | PROVIDERS: PCP Family Medicine; Referring Provider Family Medicine; Visit Provider Nurse Practitioner Gerontology | DX: N40.1 Benign prostatic hyperplasia with lower urinary tract symptoms (principal); R97.20 Elevated prostate specific antigen [PSA] | CPT/HCPCS: 51798; 99213 ==

== ENCOUNTER 2024-02-02 15:08 | Observation (INO) | payer MEDICARE, SELFPAY ==
[2024-02-02] VITALS (11 sets, daily range): BP systolic 99–128; BP diastolic 51–67; PULSE 65–80; RESP 5–32; TEMP 36.1–36.7; O2SAT 88–98
--- NOTE | 2024-02-02 15:00 | RT.EKG_ITS ---
APPROVED REPORT Exam: Resting ECG Reason for Exam: shortness of breath Patient Location: E HR:67 bpm ECG Measurements Heart Rate 67 AXIS ID 219 P 47 QRSd 108 QRS -33 QT 393 T 26 QTc 414 Conclusion Sinus rhythm. 67 normal axis no stemi
[2024-02-02 15:30] LABS: BE (Venous) 1 mmol/L (-2-3); HCO3 (Venous) 26 mmol/L (23-28); O2 Sat (Venous) 91 %; TCO2 (Venous) 23 mmol/L (24-29); pCO2 (Venous) 41 mmHg (41-51); pH (Venous) 7.41 (7.31-7.41); pO2 (Venous) 60 mmHg
[2024-02-02] MEDS: Albuterol/Ipratropium 3 ML UPD VIAL UPD ×3 (15:31→23:30)
[2024-02-02 15:32] LABS: Abs Immature Grans 0.03 10^3/uL (0.0-0.06); Absolute Basophil Count 0.04 10^3/uL (0.0-0.2); Absolute Eosinophil Count 0.27 10^3/uL (0.0-0.7); Absolute Monocyte Count 1.25 10^3/uL (0.1-0.8); Absolute Neutrophil Count 5.69 10^3/uL (1.2-6.7); Basophils % 0.4 %; HCT 41.8 % (40.0-50.0); HGB 13.9 g/dL (13.5-17.5); Immature Grans % 0.3 %; Lymphocytes % 19.8 %; MCH 31.7 pg (27.0-33.0); MCHC 33.3 % (32.0-36.0); MCV 95 fL (80-95); MPV 10.8 fL (8.0-11.0); Monocytes % 13.8 %; Neutrophils % 62.7 %; Platelet Count 206 10^3/uL (130-400); RBC 4.38 10^6/uL (4.36-5.78); RDW 14.2 % (11.8-14.1); RDW-SD 50.2 fL; WBC 9.08 10^3/uL (4.4-10.8)
--- NOTE | 2024-02-02 15:41 | ED.GENADUL_ITS ---
Discharge Plan Disposition Patient Disposition: Admit to [facility] Condition: Stable Discharge Details Chief Complaint: SOB Clinical Impression: Acute hypotension, Breath shortness, Hypoxia, Acute exacerbation of chronic obstructive pulmonary disease, Pneumonia Primary Care Provider: Mike Burns ED Provider: Amy Callahan Home Meds and New Rx's Prescriptions: No Action aspirin 81 mg tablet,chewable 81 mg PO DAILY triamcinolone acetonide 0.1 % cream 1 applic topical BID PRN (Reason: pinna rash) Qty: 30 0RF losartan 100 mg tablet 100 mg PO DAILY Qty: 90 3RF fluticasone propionate 50 mcg/actuation spray,suspension 2 spray NS DAILY Qty: 1 8RF insulin glargine 100 unit/mL (3 mL) insulin pen 47 unit SC HS Qty: 45 3RF (DME) pen needle, diabetic [Advocate Pen Needle] 33 gauge x 5/32 needle See Rx Instructions .ROUTE .MEDSUPPLY Qty: 100 3RF Rx Instructions: inject once/day Trulicity 0.75 mg/0.5 mL pen injector 0.75 mg SC QWEEK Qty: 6 3RF finasteride 5 mg tablet 5 mg PO DAILY Qty: 90 3RF polyethylene glycol 3350 17 gram/dose powder 238 g PO ONCE Qty: 238 0RF Rx Instructions: take per colonoscopy instructions amlodipine 5 mg tablet 5 mg PO BID Qty: 180 3RF atorvastatin 80 mg tablet 80 mg PO QHS Qty: 90 3RF clopidogrel [Plavix] 75 mg tablet 75 mg PO DAILY Qty: 90 4RF ezetimibe 10 mg tablet 10 mg PO DAILY Qty: 90 4RF nitroglycerin [Nitrostat] 0.4 mg tablet, sublingual 0.4 mg Sublingual PRN Qty: 25 11RF Rx Instructions: 1 TAB SL PRN tamsulosin 0.4 mg capsule 0.8 mg PO DAILY Qty: 180 3RF oxygen 2 l Not Applicable .continuous Qty: 11486 0RF hhwuvghj-pbuimeipo-OG 3.5-10,000-1 mg/mL-unit/mL-% drops,suspension 4 drp otic (ear) TID 10 Days Qty: 10 1RF Rx Instructions: left ear only (DME) Space Chamber Plus 1 EACH spacer 1 ea Miscellaneous PRN Qty: 1 infliximab [Remicade] 100 MG recon soln 1,000 mg IV .[id number] Patient Comments: 05/31/15 Jacqui [place] [facility] [place]: 1000mg IV infusion every 6 months. Done at [facility] [place]. DL 03/05/17 q 4 months. si bupropion HCl 150 mg tablet sustained-release 12 hr 150 mg PO BID Qty: 180 3RF sildenafil 100 mg tablet 100 mg PO DAILY PRN (Reason: sexual activity) Qty: 5 12RF Hold Instructions: Resume on 03/01/23. Rx Instructions: administer 30 minutes to 4 hours before activity lorazepam [Ativan] 1 mg tablet 1 mg PO DAILY PRN (Reason: anxiety) Qty: 2 0RF Rx Instructions: take 1 pill about 1 hour prior to scheduled MRI - if still anxious when you check in at the hospital, may take 2nd pill (DME) blood-glucose meter [FreeStyle Lite Meter] Kit See Rx Instructions .ROUTE .MEDSUPPLY Qty: 1 0RF Rx Instructions: test once/day (DME) Contour Test Strips Strip See Rx Instructions .Route Qty: 300 4RF Rx Instructions: Test three times daily (DME) lancets [TRUEplus Lancets] 28 gauge misc See Rx Instructions .Route Qty: 100 3RF Rx Instructions: test once/day pantoprazole 40 mg tablet,delayed release (DR/EC) 40 mg PO DAILY Qty: 90 3RF Rx Instructions: TAKE 6 HOURS APART FROM YOUR PLAVIX gabapentin 300 mg capsule See Rx Instructions .ROUTE .COMPLEX Qty: 90 5RF Dose Instruction: TAKE ONE CAPSULE BY MOUTH THREE TIMES A DAY Rx Instructions: TAKE ONE CAPSULE BY MOUTH THREE TIMES A DAY albuterol sulfate [Ventolin HFA] 90 mcg/actuation HFA aerosol inhaler 2 inh INHALATION Q6H PRN (Reason: bronchospasm) Qty: 8.5 5RF acetaminophen 650 MG tablet extended release 650 mg PO Q8H PRN (Reason: Pain) Qty: 20 0RF epinephrine 0.3 mg/0.3 mL auto-injector 0.3 mg IM ONCE Qty: 2 0RF Rx Instructions: as a single dose; may repeat once lidocaine HCl [Lidocaine Viscous] 2 % solution 1 applic mucous membrane BID PRNQty: 100 0RF loratadine 10 mg capsule 10 mg PO DAILY Qty: 10 0RF diclofenac sodium 1 % gel 2 g topical QID Qty: 100 0RF Rx Instructions: apply to single elbow, wrist or hand; for hand includes palm/fingers/back of hand HPI General Date/Time Provider Initiated Documentation: 02/02/24 15:22 . Limitations to Documentation: physical limitation . Information obtained by: patient and family . HPI Narrative: 78-year-old gentleman with past medical history of COPD, CVA presents for evalu ation of shortness of breath and dizziness. Patient reports that you name it I have had it today. He was previously evaluated at urgent care and sent to the emergency department for further evaluation secondary to his symptoms and vital signs. Daughter is at bedside and she and patient provides different histories. She states that she recently reinstated the patient's insurance and was able to get his medications and that he should be taking every day, but the patient stated to me that he has been out of his medications for a month. He denies any chest pain to me. he reports shortness of breath for several weeks but daughter says that he never mentioned this to her. Daughter reported a possible syncopal episode yesterday. They agree that he has a history of COPD and does not use o xygen at home, but it is unclear if he has access to bronchodilators or other breathing treatments. Related Data Home Medications Medication Instructions Recorded Confirmed inhalational spacing device (Space ##1 05/27/15 02/02/24 Chamber Plus) infliximab 100 mg intravenous 1,000 mg IV .[id number] 05/31/15 02/02/24 solution (Remicade) acetaminophen 650 mg 650 mg PO Q8H PRN Pain ##20 04/30/17 02/02/24 tablet,extended release epinephrine 0.3 mg/0.3 mL 0.3 mg (0.3 mL) IM ONCE #2 ea 03/12/21 02/02/24 injection, auto-injector aspirin 81 mg chewable tablet 81 mg PO DAILY 05/27/21 02/02/24 loratadine 10 mg capsule 10 mg PO DAILY #10 caps 12/28/21 02/02/24 diclofenac sodium 1 % topical gel 2 g topical QID #100 grams 04/24/22 02/02/24 triamcinolone acetonide 0.1 % 1 applic topical BID PRN pinna 12/10/22 02/02/24 topical cream rash #30 grams polyethylene glycol 3350 17 238 g PO ONCE colonoscopy prep 02/01/23 02/02/24 gram/dose oral powder #238 grams bupropion HCl 150 mg tablet,12 hr 150 mg PO BID #180 tabs 02/16/23 02/02/24 sustained-release amlodipine 5 mg tablet 5 mg PO BID #180 tabs 03/18/23 02/02/24 atorvastatin 80 mg tablet 80 mg PO QHS #90 tabs 03/18/23 02/02/24 clopidogrel 75 mg tablet (Plavix) 75 mg PO DAILY #90 tabs 03/18/23 02/02/24 ezetimibe 10 mg tablet 10 mg PO DAILY #90 tabs 03/18/23 02/02/24 lidocaine HCl 2 % mucosal solution 1 applic mucous membrane BID PRN 03/27/23 02/02/24 (Lidocaine Viscous) #100 mL sildenafil 100 mg tablet 100 mg PO DAILY PRN sexual 04/12/23 02/02/24 activity #5 tabs lorazepam 1 mg tablet (Ativan) 1 mg PO DAILY PRN anxiety #2 tabs 05/14/23 02/02/24 blood-glucose meter (FreeStyle #1 ea 06/01/23 02/02/24 Lite Meter kit) tamsulosin 0.4 mg capsule 0.8 mg (2 x 0.4 mg) PO DAILY #180 06/01/23 02/02/24 caps nitroglycerin 0.4 mg sublingual 0.4 mg sublingual PRN #25 tab-caps 06/23/23 02/02/24 tablet (Nitrostat) blood sugar diagnostic (Contour #300 ea 07/27/23 02/02/24 Test Strips) dulaglutide 0.75 mg/0.5 mL 0.75 mg (0.5 mL) subcut QWEEK #6 mL 09/22/23 02/02/24 subcutaneous pen injector (Trulicity) finasteride 5 mg tablet 5 mg PO DAILY #90 tabs 09/22/23 02/02/24 fluticasone propionate 50 2 spray NS DAILY #1 g 09/22/23 02/02/24 mcg/actuation nasal spray,suspension insulin glargine 100 unit/mL (3 47 unit (0.47 mL) subcut HS #45 mL 09/22/23 02/02/24 mL) subcutaneous pen losartan 100 mg tablet 100 mg PO DAILY #90 tabs 09/22/23 02/02/24 pen needle, diabetic 33 gauge x #100 ea 09/22/23 02/02/24 5/32 (Advocate Pen Needle) lancets 28 gauge (TRUEplus Lancets) #100 ea 09/25/23 02/02/24 oxygen 2 l Not Applicable .continuous 09/29/23 02/02/24 #10,000 L pantoprazole 40 mg tablet,delayed 40 mg PO DAILY #90 tabs 10/16/23 02/02/24 release gabapentin 300 mg capsule See Rx Instructions .Route 12/02/23 02/02/24 .COMPLEX #90 caps albuterol sulfate 90 mcg/actuation 2 inh inhalation Q6H PRN 12/27/23 02/02/24 aerosol inhaler (Ventolin HFA) bronchospasm #8.5 grams apaehqvq-werzgzbxx-xvdpwutfs 3.5 4 drp otic (ear) TID 10 days #10 mL 01/12/24 02/02/24 mg-10,000 unit/mL-1 % ear drops,susp Previous Rx's Medication Instructions Recorded acetaminophen 650 mg 650 mg PO Q8H PRN Pain ##20 04/30/17 tablet,extended release epinephrine 0.3 mg/0.3 mL 0.3 mg (0.3 mL) IM ONCE #2 ea 03/12/21 injection, auto-injector loratadine 10 mg capsule 10 mg PO DAILY #10 caps 12/28/21 diclofenac sodium 1 % topical gel 2 g topical QID #100 grams 04/24/22 triamcinolone acetonide 0.1 % 1 applic topical BID PRN pinna 12/10/22 topical cream rash #30 grams polyethylene glycol 3350 17 238 g PO ONCE colonoscopy prep 02/01/23 gram/dose oral powder #238 grams bupropion HCl 150 mg tablet,12 hr 150 mg PO BID #180 tabs 02/16/23 sustained-release amlodipine 5 mg tablet 5 mg PO BID #180 tabs 03/18/23 atorvastatin 80 mg tablet 80 mg PO QHS #90 tabs 03/18/23 clopidogrel 75 mg tablet (Plavix) 75 mg PO DAILY #90 tabs 03/18/23 ezetimibe 10 mg tablet 10 mg PO DAILY #90 tabs 03/18/23 lidocaine HCl 2 % mucosal solution 1 applic mucous membrane BID PRN 03/27/23 (Lidocaine Viscous) #100 mL sildenafil 100 mg tablet 100 mg PO DAILY PRN sexual 04/12/23 activity #5 tabs lorazepam 1 mg tablet (Ativan) 1 mg PO DAILY PRN anxiety #2 tabs 05/14/23 blood-glucose meter (FreeStyle #1 ea 06/01/23 Lite Meter kit) tamsulosin 0.4 mg capsule 0.8 mg (2 x 0.4 mg) PO DAILY #180 06/01/23 caps nitroglycerin 0.4 mg sublingual 0.4 mg sublingual PRN #25 tab-caps 06/23/23 tablet (Nitrostat) blood sugar diagnostic (Contour #300 ea 07/27/23 Test Strips) dulaglutide 0.75 mg/0.5 mL 0.75 mg (0.5 mL) subcut QWEEK #6 mL 09/22/23 subcutaneous pen injector (Trulicity) finasteride 5 mg tablet 5 mg PO DAILY #90 tabs 09/22/23 fluticasone propionate 50 2 spray NS DAILY #1 g 09/22/23 mcg/actuation nasal spray,suspension insulin glargine 100 unit/mL (3 47 unit (0.47 mL) subcut HS #45 mL 09/22/23 mL) subcutaneous pen losartan 100 mg tablet 100 mg PO DAILY #90 tabs 09/22/23 pen needle, diabetic 33 gauge x #100 ea 09/22/23 5/32 (Advocate Pen Needle) lancets 28 gauge (TRUEplus Lancets) #100 ea 09/25/23 oxygen 2 l Not Applicable .continuous 09/29/23 #10,000 L pantoprazole 40 mg tablet,delayed 40 mg PO DAILY #90 tabs 10/16/23 release gabapentin 300 mg capsule See Rx Instructions .Route 12/02/23 .COMPLEX #90 caps albuterol sulfate 90 mcg/actuation 2 inh inhalation Q6H PRN 12/27/23 aerosol inhaler (Ventolin HFA) bronchospasm #8.5 grams ntrrwjsu-zwywblojo-mrzfohwvj 3.5 4 drp otic (ear) TID 10 days #10 mL 01/12/24 mg-10,000 unit/mL-1 % ear drops,susp Allergies Allergy/AdvReac Type Severity Reaction Status Date / Time venom-honey bee Allergy Severe ANAPHYLAXSI Verified 02/02/24 14:38 [bee venom (honey bee)] S Sulfa (Sulfonamide Allergy Unknown unknown Verified 02/02/24 14:38 Antibiotics) leflunomide [From Arava] AdvReac Intermediate DIARRHEA Verified 02/02/24 14:38 metformin AdvReac Intermediate diarrhea Verified 02/02/24 14:38 General Stated Complaint: SOB STAR: 3 Exam Narrative Exam Narrative: Review of Systems: All systems reviewed & are unremarkable except as noted in HPI and below Well-developed, no acute distress NCAT PERRL, normal conjunctiva RRR, no murmur hypotensive hypoxia 89% room air, scattered wheezing bilaterally Nondistended abdomen , non tender Extremities w/o deformity, no cyanosis, no edema No rashes or lesions. no focal neurologic deficits Appropriate mood and affect Course Vital Signs Vital signs: Vital Signs Temperature 36.6 C 02/02/24 15:11 Pulse 72 02/02/24 15:11 Respiratory Rate 20 02/02/24 15:11 Blood Pressure 99/51 L 02/02/24 15:11 Pulse Oximetry 90 L 02/02/24 15:11 Temperature 36.6 C 02/02/24 15:11 Temperature Source Oral 02/02/24 15:11 Pulse 72 02/02/24 15:11 Respiratory Rate 20 02/02/24 15:15 Respiratory Effort Short of Breath 02/02/24 15:15 Respiratory Depth Normal 02/02/24 15:15 Respiratory Pattern Normal 02/02/24 15:15 Blood Pressure 99/51 L 02/02/24 15:11 Pulse Oximetry 89 L 02/02/24 15:31 Oxygen Delivery Method Room Air 02/02/24 15:31 Oxygen Flow Rate 0 02/02/24 15:31 Pain Level 8 02/02/24 15:11 Lab/Test Results Lab/Test Results: 02/02/24 15:37 Blood Blood Culture - Pending 02/02/24 15:37 Blood Blood Culture - Pending Laboratory Tests Range/Units 02/02/24 15:26 WBC (4.4-10.8) 10^3/uL 9.08 RBC (4.36-5.78) 10^6/uL 4.38 Hgb (13.5-17.5) g/dL 13.9 Hct (40.0-50.0) % 41.8 MCV (80-95) fL 95 MCH (27.0-33.0) pg 31.7 MCHC (32.0-36.0) % 33.3 RDW (11.8-14.1) % 14.2 H Plt Count (130-400) 10^3/uL 206 MPV (8.0-11.0) fL 10.8 Immature Gran % % 0.3 Neutrophils % % 62.7 Lymphocytes % % 19.8 Monocytes % % 13.8 Eosinophils % % 3.0 Basophils % % 0.4 Nucleated RBC % (0.0-0.3) % 0.0 Absolute Neutrophils (1.2-6.7) 10^3/uL 5.69 Absolute Lymphocytes (1.2-3.4) 10^3/uL 1.80 Absolute Monocytes (0.1-0.8) 10^3/uL 1.25 H Absolute Eosinophils (0.0-0.7) 10^3/uL 0.27 Absolute Basophils (0.0-0.2) 10^3/uL 0.04 VBG pH (7.31-7.41) 7.41 VBG pCO2 (41-51) mmHg 41 VBG pO2 mmHg 60 VBG HCO3 (23-28) mmol/L 26 VBG Total CO2 (24-29) mmol/L 23 L VBG O2 Saturation % 91 VBG Base Excess (-2-3) mmol/L 1 Medical Decision Making Emergent evaluation of shortness of breath. History is difficult to obtain from the patient and his daughter. But of note, the patient is noted to be hypotensive, little hypoxic. Does have some wheezing. He has some wheezing. He has a history of COPD. Will give steroids and bronchodilators and reassess. With his vital sign derangement, I am also concerned for possible pneumonia, ACS, electrolyte derangement. Will get lab work, chest x-ray, blood cultures and reassess. 1600 Patient responded well to the breathing treatment, but now oxygen saturations are low around 83%, BP is improving 1610 chest x-ray ribs viewed, no cardiomegaly or pleural effusion, there does appear to be some interstitial changes and possible left lobe infiltrate. Will treat with antibiotics. Given the patient's low blood pressure and hypoxia, will admit to the hospital for inpatient management of this pneumonia. Medical Records Medical records reviewed: Yes I reviewed the patient's medical records. Lab Data Lab results reviewed: Yes I reviewed the patient's lab results. Quality:[facility] Health Related Social Needs: No Data to Display PFSH All Active Problems (Updated 02/02/24 @ 16:11 by Amy Callahan MD) Pneumonia (Acute) Acute exacerbation of chronic obstructive pulmonary disease (Acute) Hypoxia (Acute) Breath shortness (Acute) Acute hypotension (Acute) Acute otitis externa of left ear (Acute) Ear pain, right (Acute) Impetigo (Acute) [place] (dyspnea on exertion) (Acute) Cellulitis (Acute) Epistaxis (Acute) Nasal vestibulitis (Acute) Sensorineural hearing loss, bilateral (Acute) Impacted cerumen, bilateral (Acute) Weight loss (Acute) Elevated PSA, between 10 and less than 20 ng/ml (Acute) Chronic obstructive lung disease (Chronic) pulmonary fibrosis on chest xray ongoing tobacco use add back budesonide nebs to see if we can improve cough Diabetes mellitus (Chronic 05/05/13) check A1c and creat Gastroesophageal reflux disease (Chronic) Hyperlipidemia (Chronic 05/05/13) Kidney stone (Acute 09/14/14) recurrent x3 on left [facility] [place] 10/12/16-[facility]; F/U Dr. Fair Male erectile disorder (Acute 08/29/13) Palpitations (Acute 11/04/12) multiple PVCs, bradycardia (2013) ([facility] [place], [place] Abraham, echo normal LVEF and stress test neg ischemia) Rheumatoid arthritis (Chronic 05/05/13) [facility] [place] Leon Smoker (Chronic) Tubular adenoma (Acute) 11/20 COLONOSCOPY: ONE TUBULOVILLOUS ADENOMA & TWO TUBULAR ADENOMAS. 05/22/13: DR. Mateusz COPELAND:TUBULAR ADENOMAS 11/13/16: Dr Jian Crump: tublular and tubulovillous adenomas Erectile dysfunction (Chronic) Lipoma (Acute) Depressive disorder (Chronic) RCA occlusion (Acute) 05/25/19 [facility] [place] Bradycardia (Acute) Fatigue (Acute) Chronic knee pain (Acute) Arthritis of knee, right (Acute) Bilateral hip joint arthritis (Acute) Degenerative lumbar spinal stenosis (Acute) Adenomatous polyps (Acute) Serrated adenoma of colon (Acute ~07/2020) Mallet deformity of left ring finger (Acute 11/30/20) with avulsion fracture Anaphylaxis due to hymenoptera venom (Acute) Cellulitis of ear (Acute) Aortic atherosclerosis (Acute) Emphysema lung (Acute) Tubular adenoma of colon (Acute) COPD with acute exacerbation (Acute) 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) Cardiomyopathy (Acute) Otitis externa, left (Acute) Medical History Eczema Hypoxemia Acute kidney injury Sepsis COPD (chronic obstructive pulmonary disease) BPH loc w urin obs/LUTS Myocardial infarction 2020 x2 stents Hypertension same meds, good BP here today CVA (cerebral vascular accident) (11/21/17) ASCVD (arteriosclerotic cardiovascular disease) (05/05/13) 2 NEW STENTS 04/22 H/O IMI; angioplasty and stent; [place] , 02/11; CVA/TIA Surgical History Stented coronary artery 05/25/19 [facility] [place]; s/p stent of old stent-KB History of incisional hernia repair History of knee surgery RESECTION ANGIOFIBROMA;RIGHT FOOT 02/04/18 KNEE REPAIR RIGHT Hernia Repair, Incisional Excision, Lipoma (05/19/16) posterior neck Colostomy (~2006) TEMP W/ REVISION Colonoscopy - MAC (11/13/16) Colonoscopy - MAC (05/16/13) Family History Mother Essential hypertension Heart disease Stroke Father Stroke Brother Heart disease Family History Diabetes Heart disease Cancer Brother No problems noted. Brother No problems noted. Sister No problems noted. Sister Alcohol abuse Social History Smoking/Tobacco Use Status: Current every day Tobacco Type: cigarettes Tobacco: How many years used: 60 Quit status: has quit before Second Hand Exposure: Yes Smoking risk assessment performed?: Yes Alcohol Intake: former Drug use: Never Substance use type: does not use Household members: family Housing: house Communication Needs: None Do you need help understanding health information?: Rarely Pets and animals: Yes Pets and animals: cat(s) Sexually active: No Current gender identity: male What is your relationship status?: How often do you talk on the phone with friends or family?: three or more times per week How often do you get together with friends or relatives?: twice per week How often do you attend confucianism or yarsani services?: decline to answer Do you belong to any clubs or organized social groups?: no Panel score (0-1 are the most socially isolated patients): 1 What type of physical activity do you participate in: walking Duration: < 15 minutes/day Frequency: 1-2 times per week Monika/Hindu: None Special monika needs: No Seatbelt use: sometimes Helmet use: No Drive intox or ride w/intox bung driver: No Do you feel safe at home: Yes Do you feel safe in your relationship?: Yes Additional Social history: Lives with roommate in trailer at [facility]. Retired [employer]. 4 adult kids in the area.
[2024-02-02] MEDS: methylPREDNISolone SUCC 125 MG VIAL IVP (15:49)
[2024-02-02 15:55] LABS: ALT 25 U/L (16-63); AST 15 U/L (15-37); Albumin 2.8 g/dL (3.4-5.0); Alkaline Phosphatase 72 U/L (46-116); Anion Gap 9.2 mmol/L (3-11); BUN 23 mg/dL (7-18); Bilirubin, Total 0.6 mg/dL (0.2-1.0); CO2 25.8 mmol/L (21.0-32.0); CREATININE 1.4 mg/dL (0.70-1.30); Calcium 8.5 mg/dL (8.5-10.1); Chloride 106 mmol/L (98-107); Estimated GFR 52.09 (mL/min/1.73m2); Glucose 118 mg/dL (74-106); NT-proBNP 248 pg/mL (<300); Potassium 3.7 mmol/L (3.5-5.1); Sodium 141 mmol/L (136-145); Total Protein 6.4 g/dL (6.4-8.2); Troponin I < 50 ng/L (< or =60)
[2024-02-02] MEDS: Normal Saline 500 ML IV (15:55)
--- NOTE | 2024-02-02 15:55 | DI.RAD_ITS ---
Exam(s) XR PORTABLE CHEST AP EXAM: XR PORTABLE CHEST AP CLINICAL HISTORY: shortness of breath. TECHNIQUE: 2D digital imaging was performed. COMPARISON: CR,XR XR CHEST 2V PA LATERAL from 03/19/[address] CHEST WO from 08/11/2023 CR,XR XR PORTABLE CHEST AP from 09/22/2023 FINDINGS: Single AP portable view. Heart size is upper normal. The mediastinum is not widened. There is extensive bilateral interstitial disease again noted, however, there now appears to be some developing confluent infiltrate in the left lower lobe retrocardiac region. No pleural effusions. IMPRESSION: COPD and chronic interstitial disease but there appears to be new infiltrate in the left lower lobe r etrocardiac region. There are no obvious pleural effusions. DATA REPOSITORY: RADIATION DOSE DELIVERED:
[2024-02-02 16:21] LABS: Lactate 0.8 mmol/L (0.6-1.4)
[2024-02-02] MEDS: cefTRIAXone 1 GM/50 ML BAG IVPB (16:30)
--- NOTE | 2024-02-02 16:33 | W.PM.HP.N ---
Date of service: 02/02/24 Time of Service: 16:33 Assessment and Plan Assessment and plan (1) Acute exacerbation of chronic obstructive pulmonary disease: Status: Acute Assessment and plan: No hypercapnia as per VBG in ED , received 125 mg of IV methylpred Will initiate prednisone 40 PO daily for 5 doses in AM IS Vibrapep (2) Pneumonia: Status: Acute Assessment and plan: On Azithromycin and ceftriaxone Procal and lactate pending at the time of admission to the floor Fluvid also pending and as above (3) Diabetes mellitus: Status: Chronic Assessment and plan: Diabetic diet Fingerstick AC and HS with SSI and basal insulin Qualifiers: Diabetes mellitus complication status: without complication Diabetes mellitus skilled nursing insulin use: without buttermaker use Diabetes mellitus type: type 2 Qualified Code(s): E11.9 - Type 2 diabetes mellitus without complications (4) Acute kidney injury: Status: Acute Assessment and plan: Cr 1.4 baseline 1.0 LR at 125 cc/hr BMP in AM (5) On deep vein thrombosis (DVT) prophylaxis: Status: Acute Assessment and plan: On LMWH (6) Discharge planning issues: Status: Acute Assessment and plan: CM to follow Discharge when medically stable Discussed with Dr. Oneill History of Present Illness History of Present Illness Chief Complaint: Shortness of breath , dizziness Narrative: This 78 years old male patient with past medical history of COPD, tobacco abuse, CVA presented to the ED at [facility] via vehicle today for complaints of shortness of breath and dizziness. The patient reported previous evaluation at urgent care which directed him to the emergency department for further evaluation due to your symptoms and vital signs. Patient stating that he has not been taking his medicines for the past month despite the other reporting having initiated insurance coverage for the patient to enable him to get his medicine. The patient had reported that the shortness of breath started several weeks ago but this has not been corroborated by the daughter, but she reported a possible syncopal episode on 02/01/2024. Labs in the ED were unremarkable except for BUN of 23 and a creatinine of 1.4 with a baseline around 1.0. The chest x-ray showed new pulmonary infiltrates in the left lower lobe in addition to changes from COPD and chronic interstitial disease. In the ED the patient received nebulizer treatments, IV steroids. The hospitalist service was consulted and patient admitted to the medical surgical floor for evaluation and management of pneumonia and COPD exacerbation. When met in the room, the patient appears to be without any acute distress but experience tachypnea and increased work of breathing with minimal exertion. The patient denied change in vision, fever, chills, chest pain, nausea, vomiting or dysuria. The patient reported dizziness, nasal nasal congestion, cough without hemoptysis. Review of Systems All systems reviewed & are unremarkable except as noted in HPI and below PFSH All Active Problems (Updated 02/02/24 @ 18:08 by GEORGE GIVENS) On deep vein thrombosis (DVT) prophylaxis (Acute) Discharge planning issues (Acute) Acute kidney injury (Acute) Pneumonia (Acute) Acute exacerbation of chronic obstructive pulmonary disease (Acute) Hypoxia (Acute) Breath shortness (Acute) Acute hypotension (Acute) Acute otitis externa of left ear (Acute) Ear pain, right (Acute) Impetigo (Acute) LANGSTON (dyspnea on exertion) (Acute) Cellulitis (Acute) Epistaxis (Acute) Nasal vestibulitis (Acute) Sensorineural hearing loss, bilateral (Acute) Impacted cerumen, bilateral (Acute) Weight loss (Acute) Elevated PSA, between 10 and less than 20 ng/ml (Acute) Chronic obstructive lung disease (Chronic) pulmonary fibrosis on chest xray ongoing tobacco use add back budesonide nebs to see if we can improve cough Diabetes mellitus (Chronic 05/05/13) check A1c and creat Gastroesophageal reflux disease (Chronic) Hyperlipidemia (Chronic 05/05/13) Kidney stone (Acute 09/14/14) recurrent x3 on left [facility] Urology 10/12/16-[facility]; F/U Dr. Fair Male erectile disorder (Acute 08/29/13) Palpitations (Acute 11/04/12) multiple PVCs, bradycardia (2014) ([facility], Dr Abraham, echo normal LVEF and stress test neg ischemia) Rheumatoid arthritis (Chronic 05/05/13) [facility], Dr Leon Smoker (Chronic) Tubular adenoma (Acute) 11/20 COLONOSCOPY: ONE TUBULOVILLOUS ADENOMA & TWO TUBULAR ADENOMAS. 05/22/13: DR. Mateusz COPELAND:TUBULAR ADENOMAS 11/13/16: Dr Jian Crump: tublular and tubulovillous adenomas Erectile dysfunction (Chronic) Lipoma (Acute) Depressive disorder (Chronic) RCA occlusion (Acute) 05/25/19 [facility] Bradycardia (Acute) Fatigue (Acute) Chronic knee pain (Acute) Arthritis of knee, right (Acute) Bilateral hip joint arthritis (Acute) Degenerative lumbar spinal stenosis (Acute) Adenomatous polyps (Acute) Serrated adenoma of colon (Acute ~07/2020) Mallet deformity of left ring finger (Acute 11/30/20) with avulsion fracture Anaphylaxis due to hymenoptera venom (Acute) Cellulitis of ear (Acute) Aortic atherosclerosis (Acute) Emphysema lung (Acute) Tubular adenoma of colon (Acute) COPD with acute exacerbation (Acute) 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) Cardiomyopathy (Acute) Otitis externa, left (Acute) Medical History Eczema Hypoxemia Acute kidney injury Sepsis COPD (chronic obstructive pulmonary disease) BPH loc w urin obs/LUTS Myocardial infarction 2020 x2 stents Hypertension same meds, good BP here today CVA (cerebral vascular accident) (11/21/17) ASCVD (arteriosclerotic cardiovascular disease) (05/05/13) 2 NEW STENTS 04/22 H/O IMI; angioplasty and stent; [place] , 02/11; CVA/TIA Surgical History Stented coronary artery 05/25/19 [facility]; s/p stent of old stent-KB History of incisional hernia repair History of knee surgery RESECTION ANGIOFIBROMA;RIGHT FOOT 02/04/18 KNEE REPAIR RIGHT Hernia Repair, Incisional Excision, Lipoma (05/19/16) posterior neck Colostomy (~2006) TEMP W/ REVISION Colonoscopy - MAC (11/13/16) Colonoscopy - MAC (05/16/13) Family History Mother Essential hypertension Heart disease Stroke Father Stroke Brother Heart disease Family History Diabetes Heart disease Cancer Brother No problems noted. Brother No problems noted. Sister No problems noted. Sister Alcohol abuse Social History Smoking/Tobacco Use Status: Current every day Tobacco Type: cigarettes Tobacco: How many years used: 60 Quit status: has quit before Second Hand Exposure: Yes Smoking risk assessment performed?: Yes Alcohol Intake: former Drug use: Never Substance use type: does not use Household members: family Housing: other Communication Needs: None Do you need help understanding health information?: Rarely Pets and animals: Yes Pets and animals: cat(s) Sexually active: No Current gender identity: male What is your relationship status?: How often do you talk on the phone with friends or family?: three or more times per week How often do you get together with friends or relatives?: twice per week How often do you attend baptism or holiness services?: decline to answer Do you belong to any clubs or organized social groups?: no Panel score (0-1 are the most socially isolated patients): 1 What type of physical activity do you participate in: walking Duration: < 15 minutes/day Frequency: 1-2 times per week Monika/Jewish: None Special monika needs: No Seatbelt use: sometimes Helmet use: No Drive intox or ride w/intox milk pickup driver: No Do you feel safe at home: Yes Do you feel safe in your relationship?: Yes Additional Social history: Lives with roommate in trailer at [facility]. 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 4 adult kids in the area. Meds Allergies and Home Medications Allergies Allergy/AdvReac Type Severity Reaction Status Date / Time venom-honey bee Allergy Severe ANAPHYLAXSI Verified 02/02/24 14:38 [bee venom (honey bee)] S Sulfa (Sulfonamide Allergy Unknown unknown Verified 02/02/24 14:38 Antibiotics) leflunomide [From Arava] AdvReac Intermediate DIARRHEA Verified 02/02/24 14:38 metformin AdvReac Intermediate diarrhea Verified 02/02/24 14:38 Home Medications Medication Instructions Recorded Confirmed Type inhalational spacing device (Space ##1 05/27/15 02/02/24 History Chamber Plus) infliximab 100 mg intravenous 1,000 mg IV .[id number] 05/31/15 02/02/24 History solution (Remicade) acetaminophen 650 mg 650 mg PO Q8H PRN Pain ##20 04/30/17 02/02/24 Rx tablet,extended release epinephrine 0.3 mg/0.3 mL 0.3 mg (0.3 mL) IM ONCE #2 ea 03/12/21 02/02/24 Rx injection, auto-injector aspirin 81 mg chewable tablet 81 mg PO DAILY 05/27/21 02/02/24 History loratadine 10 mg capsule 10 mg PO DAILY #10 caps 12/28/21 02/02/24 Rx diclofenac sodium 1 % topical gel 2 g topical QID #100 grams 04/24/22 02/02/24 Rx bupropion HCl 150 mg tablet,12 hr 150 mg PO BID #180 tabs 02/16/23 02/02/24 Rx sustained-release amlodipine 5 mg tablet 5 mg PO BID #180 tabs 03/18/23 02/02/24 Rx atorvastatin 80 mg tablet 80 mg PO QHS #90 tabs 03/18/23 02/02/24 Rx clopidogrel 75 mg tablet (Plavix) 75 mg PO DAILY #90 tabs 03/18/23 02/02/24 Rx ezetimibe 10 mg tablet 10 mg PO DAILY #90 tabs 03/18/23 02/02/24 Rx lidocaine HCl 2 % mucosal solution 1 applic mucous membrane BID PRN 03/27/23 02/02/24 Rx (Lidocaine Viscous) #100 mL lorazepam 1 mg tablet (Ativan) 1 mg PO DAILY PRN anxiety #2 tabs 05/14/23 02/02/24 Rx blood-glucose meter (FreeStyle #1 ea 06/01/23 02/02/24 Rx Lite Meter kit) tamsulosin 0.4 mg capsule 0.8 mg (2 x 0.4 mg) PO DAILY #180 06/01/23 02/02/24 Rx caps nitroglycerin 0.4 mg sublingual 0.4 mg sublingual PRN #25 tab-caps 06/23/23 02/02/24 Rx tablet (Nitrostat) blood sugar diagnostic (Contour #300 ea 07/27/23 02/02/24 Rx Test Strips) dulaglutide 0.75 mg/0.5 mL 0.75 mg (0.5 mL) subcut QWEEK #6 mL 09/22/23 02/02/24 Rx subcutaneous pen injector (Trulicity) finasteride 5 mg tablet 5 mg PO DAILY #90 tabs 09/22/23 02/02/24 Rx fluticasone propionate 50 2 spray NS DAILY #1 g 09/22/23 02/02/24 Rx mcg/actuation nasal spray,suspension insulin glargine 100 unit/mL (3 47 unit (0.47 mL) subcut HS #45 mL 09/22/23 02/02/24 Rx mL) subcutaneous pen losartan 100 mg tablet 100 mg PO DAILY #90 tabs 09/22/23 02/02/24 Rx pen needle, diabetic 33 gauge x #100 ea 09/22/23 02/02/24 Rx 5/32 (Advocate Pen Needle) lancets 28 gauge (TRUEplus Lancets) #100 ea 09/25/23 02/02/24 Rx pantoprazole 40 mg tablet,delayed 40 mg PO DAILY #90 tabs 10/16/23 02/02/24 Rx release gabapentin 300 mg capsule See Rx Instructions .Route 12/02/23 02/02/24 Rx .COMPLEX #90 caps albuterol sulfate 90 mcg/actuation 2 inh inhalation Q6H PRN 12/27/23 02/02/24 Rx aerosol inhaler (Ventolin HFA) bronchospasm #8.5 grams [id number] 3.5 4 drp otic (ear) TID 10 days #10 mL 01/12/24 02/02/24 Rx mg-10,000 unit/mL-1 % ear drops,susp Exam Narrative Exam Narrative: Constitutional Neuro:alert and oriented to self, person, place, time and situation. No neurological focal deficit Resp: Normal respiratory pattern, speaks in short sentences, ulabored breathing on exertion, coarse left base Cardio: regular rhythm, S1, S2, no murmur, capillary refill<3 sec., bilateral radial and dorsalis pedis pulses are positive, palpable GI: Abdomen is not distended, soft and non tender, bowel sounds are present : Negative Costovertebral angle tenderness, no bladder distension Back/spine/Pelvis: No back tenderness, normal alignment Integumentary: No skin lesions or rash on exposed skin Extremities: strength 5/5 to bilateral lower and upper extremities Psych: RASS 0, congruent mood and normal affect. Results Labs 02/02/24 15:26 02/02/24 15:26 Labs: Laboratory Results - last 24 hr 02/02/24 02/02/24 15:26 16:15 WBC 9.08 RBC 4.38 Hgb 13.9 Hct 41.8 MCV 95 MCH 31.7 MCHC 33.3 RDW 14.2 H Plt Count 206 MPV 10.8 Immature Gran % 0.3 Neutrophils % 62.7 Lymphocytes % 19.8 Monocytes % 13.8 Eosinophils % 3.0 Basophils % 0.4 Nucleated RBC % 0.0 Absolute Neutrophils 5.69 Absolute Lymphocytes 1.80 Absolute Monocytes 1.25 H Absolute Eosinophils 0.27 Absolute Basophils 0.04 VBG pH 7.41 VBG pCO2 41 VBG pO2 60 VBG HCO3 26 VBG Total CO2 23 L VBG O2 Saturation 91 VBG Base Excess 1 VBG Lactate 0.8 Sodium 141 Potassium 3.7 Chloride 106 Carbon Dioxide 25.8 Anion Gap 9.2 BUN 23 H Creatinine 1.4 H Est GFR (CKD-EPI 2020) 52.09 Glucose 118 H Calcium 8.5 Total Bilirubin 0.6 AST 15 ALT 25 Alkaline Phosphatase 72 Troponin I < 50 NT-Pro-B Natriuret Pep 248 Total Protein 6.4 Albumin 2.8 L Last Vital Signs Temp 36.6 C 02/02/24 15:11 Pulse 72 02/02/24 15:11 Resp 20 02/02/24 15:15 BP 99/51 L 02/02/24 15:11 Pulse Ox 89 L 02/02/24 15:31 Time Spent Time spent with Patient: >75 minutes Time was spent: preparing to see the patient(eg.review tests), obtaining and/or reviewing separately otained hiistory, ordering medications,tests, procedures, referring, communicating with other health ocular care technologist, indepentently interpreting results, counseling the patient and care coordination
[2024-02-02 16:43] LABS: COVID-19 PCR Negative (Negative); Influenza A PCR Negative (Negative); Influenza B PCR Negative (Negative); RSV PCR Negative (Negative)
[2024-02-02 16:53] LABS: Source Nasopharynx
[2024-02-02 17:12] LABS: Procalcitonin < 0.1 ng/mL
[2024-02-02] MEDS: AZITHROMYCIN 500 MG in Normal Saline 250 ML 250 MG IVPB (17:20)
[2024-02-02] MEDS: Lactated Ringers 1,000 ML 125 ML IV (18:56)
[2024-02-02] MEDS: Gabapentin 300 MG CAP PO (21:00)
[2024-02-02] MEDS: guaiFENesin 600 MG TABCR PO (21:00)
[2024-02-02] MEDS: Atorvastatin 40 MG TAB 80 MG PO (21:00)
[2024-02-02] MEDS: amLODIPine 5 MG TAB PO (21:01)
[2024-02-02] MEDS: buPROPion-CR 150 MG TABCR PO (21:01)
[2024-02-02 21:33] LABS: Glucose 281 mg/dL (74-106)
[2024-02-02] MEDS: Insulin Glargine 300 UNITS/3 ML PEN 47 UNITS SC (22:00)
[2024-02-02] MEDS: Enoxaparin 40 MG/0.4 ML SYR SC (22:21)
[2024-02-03] MEDS: Lactated Ringers 1,000 ML 125 ML IV (02:49)
[2024-02-03 03:31] VITALS: BP 120/61; PULSE 60; RESP 16; TEMP 36.5; O2SAT 94
[2024-02-03 06:00] VITALS: PULSE 68; RESP 18; RESP 8; O2SAT 91
[2024-02-03] MEDS: Albuterol/Ipratropium 3 ML UPD VIAL UPD ×2 (06:00→11:46)
[2024-02-03 06:10] VITALS: PULSE 66; RESP 16; O2SAT 99
[2024-02-03 07:05] LABS: Abs Immature Grans 0.06 10^3/uL (0.0-0.06); Absolute Basophil Count 0.01 10^3/uL (0.0-0.2); Absolute Lymphocyte Count 0.84 10^3/uL (1.2-3.4); Absolute Monocyte Count 0.29 10^3/uL (0.1-0.8); Absolute Neutrophil Count 7.62 10^3/uL (1.2-6.7); Basophils % 0.1 %; HCT 41.6 % (40.0-50.0); HGB 14.2 g/dL (13.5-17.5); Immature Grans % 0.7 %; Lymphocytes % 9.5 %; MCHC 34.1 % (32.0-36.0); MCV 94 fL (80-95); MPV 11.3 fL (8.0-11.0); Monocytes % 3.3 %; Neutrophils % 86.4 %; Platelet Count 209 10^3/uL (130-400); RBC 4.44 10^6/uL (4.36-5.78); RDW 13.8 % (11.8-14.1); RDW-SD 47.6 fL; WBC 8.82 10^3/uL (4.4-10.8)
[2024-02-03 07:09] LABS: Anion Gap 9.5 mmol/L (3-11); BUN 21 mg/dL (7-18); CO2 25.5 mmol/L (21.0-32.0); CREATININE 0.9 mg/dL (0.70-1.30); Calcium 9.1 mg/dL (8.5-10.1); Chloride 109 mmol/L (98-107); Estimated GFR 88.51 (mL/min/1.73m2); Glucose 131 mg/dL (74-106); Sodium 144 mmol/L (136-145)
[2024-02-03] MEDS: Nicotine 21 MG/24 HR PATCH TD (07:47)
[2024-02-03] MEDS: buPROPion-CR 150 MG TABCR PO (07:48)
[2024-02-03] MEDS: guaiFENesin 600 MG TABCR PO (07:48)
[2024-02-03] MEDS: Loratidine 10 MG TAB PO (07:48)
[2024-02-03] MEDS: Pantoprazole 40 MG TABCR PO (07:48)
[2024-02-03] MEDS: Finasteride 5 MG TAB PO (07:48)
[2024-02-03] MEDS: Clopidogrel 75 MG TAB PO (07:48)
[2024-02-03] MEDS: amLODIPine 5 MG TAB PO (07:48)
[2024-02-03] MEDS: Aspirin 81 MG CHEW PO (07:48)
[2024-02-03] MEDS: Ezetimibe 10 MG TAB PO (07:48)
[2024-02-03] MEDS: Gabapentin 300 MG CAP PO (07:48)
[2024-02-03] MEDS: Tamsulosin 0.4 MG CAPCR 0.8 MG PO (07:49)
[2024-02-03] MEDS: Losartan 50 MG TAB 100 MG PO (07:49)
[2024-02-03 07:51] VITALS: BP 126/68; PULSE 68; RESP 16; TEMP 36.8; O2SAT 91
--- NOTE | 2024-02-03 10:23 | PDOC.CMIN ---
Date of service: 02/03/24 Time of Service: 10:23 Care Management Initial Assmt Initial Assessment Reason for Hospitalization: COPD Exacerbation Functional Status/Living Situation Town of Residence: [place] Advance Directives Advance Directives: Do you have an Advance Directive: Y 09/25/22 11:57 AD On File at [facility]: Y 09/25/22 11:57 Date Asked 10/19/23 10/20/23 15:47 AD Date Reviewed 02/02/24 02/02/24 19:32 COLST On File at [facility] COLST Date Scanned Code Status Resuscitation Status Full Code Portal Pt does not currently have a portal and education provided: No Insurance Coverage/Financial Issues Insurance: Medicare Financial Assist 100 ACO Member: Yes Care Team Visit Care Team Role Provider Type Mike Burns MD Primary Care Provider [facility] STAFF PHYSICIAN Amy Callahan MD Emergency Provider [facility] Jignesh Oneill Admit Provider [facility] Attending Provider Discharge Potential Discharge Needs: PT Evaluation and PCP F/U Appt Anticipated Barriers to Discharge: None Identified Patient/Family Education Needs: Review discharge instructions, discuss Ask Me Three Transportation: Private vehicle Plan: Anticipate Pops will discharge home, possibly with new home health services when medically cleared by provider. He will follow up with his PCP and plan of care and transport with family vs RCT. CM will follow and continue to support discharge planning needs. PFSH All Active Problems (Updated 02/02/24 @ 18:08 by GEORGE GIVENS) On deep vein thrombosis (DVT) prophylaxis (Acute) Discharge planning issues (Acute) Acute kidney injury (Acute) Pneumonia (Acute) Acute exacerbation of chronic obstructive pulmonary disease (Acute) Hypoxia (Acute) Breath shortness (Acute) Acute hypotension (Acute) Acute otitis externa of left ear (Acute) Ear pain, right (Acute) Impetigo (Acute) LANGSTON (dyspnea on exertion) (Acute) Cellulitis (Acute) Epistaxis (Acute) Nasal vestibulitis (Acute) Sensorineural hearing loss, bilateral (Acute) Impacted cerumen, bilateral (Acute) Weight loss (Acute) Elevated PSA, between 10 and less than 20 ng/ml (Acute) Chronic obstructive lung disease (Chronic) pulmonary fibrosis on chest xray ongoing tobacco use add back budesonide nebs to see if we can improve cough Diabetes mellitus (Chronic 05/05/13) check A1c and creat Gastroesophageal reflux disease (Chronic) Hyperlipidemia (Chronic 05/05/13) Kidney stone (Acute 09/14/14) recurrent x3 on left [facility] Urology 10/12/16-[facility]; F/U Dr. Fair Male erectile disorder (Acute 08/29/13) Palpitations (Acute 11/04/12) multiple PVCs, bradycardia (2013) ([facility], Dr Abraham, echo normal LVEF and stress test neg ischemia) Rheumatoid arthritis (Chronic 05/05/13) [facility], Dr Leon Smoker (Chronic) Tubular adenoma (Acute) 11/20 COLONOSCOPY: ONE TUBULOVILLOUS ADENOMA & TWO TUBULAR ADENOMAS. 05/22/13: DR. Mateusz COPELAND:TUBULAR ADENOMAS 11/13/16: Dr Jian Crump: tublular and tubulovillous adenomas Erectile dysfunction (Chronic) Lipoma (Acute) Depressive disorder (Chronic) RCA occlusion (Acute) 05/25/19 [facility] Bradycardia (Acute) Fatigue (Acute) Chronic knee pain (Acute) Arthritis of knee, right (Acute) Bilateral hip joint arthritis (Acute) Degenerative lumbar spinal stenosis (Acute) Adenomatous polyps (Acute) Serrated adenoma of colon (Acute ~07/2020) Mallet deformity of left ring finger (Acute 11/30/20) with avulsion fracture Anaphylaxis due to hymenoptera venom (Acute) Cellulitis of ear (Acute) Aortic atherosclerosis (Acute) Emphysema lung (Acute) Tubular adenoma of colon (Acute) COPD with acute exacerbation (Acute) 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) Cardiomyopathy (Acute) Otitis externa, left (Acute) Medical History Eczema Hypoxemia Acute kidney injury Sepsis COPD (chronic obstructive pulmonary disease) BPH loc w urin obs/LUTS Myocardial infarction 2020 x2 stents Hypertension same meds, good BP here today CVA (cerebral vascular accident) (11/21/17) ASCVD (arteriosclerotic cardiovascular disease) (05/05/13) 2 NEW STENTS 04/22 H/O IMI; angioplasty and stent; [place] , 02/11; CVA/TIA Surgical History Stented coronary artery 05/25/19 [facility]; s/p stent of old stent-KB History of incisional hernia repair History of knee surgery RESECTION ANGIOFIBROMA;RIGHT FOOT 02/04/18 KNEE REPAIR RIGHT Hernia Repair, Incisional Excision, Lipoma (05/19/16) posterior neck Colostomy (~2006) TEMP W/ REVISION Colonoscopy - MAC (11/13/16) Colonoscopy - MAC (05/16/13) Family History Mother Essential hypertension Heart disease Stroke Father Stroke Brother Heart disease Family History Diabetes Heart disease Cancer Brother No problems noted. Brother No problems noted. Sister No problems noted. Sister Alcohol abuse Social History Smoking/Tobacco Use Status: Current every day Tobacco Type: cigarettes Tobacco: How many years used: 60 Quit status: has quit before Second Hand Exposure: Yes Smoking risk assessment performed?: Yes Alcohol Intake: former Drug use: Never Substance use type: does not use Household members: family Housing: other Communication Needs: None Do you need help understanding health information?: Rarely Pets and animals: Yes Pets and animals: cat(s) Sexually active: No Current gender identity: male What is your relationship status?: How often do you talk on the phone with friends or family?: three or more times per week How often do you get together with friends or relatives?: twice per week How often do you attend alevism or spiritism services?: decline to answer Do you belong to any clubs or organized social groups?: no Panel score (0-1 are the most socially isolated patients): 1 What type of physical activity do you participate in: walking Duration: < 15 minutes/day Frequency: 1-2 times per week Monika/Baptism: None Special monika needs: No Seatbelt use: sometimes Helmet use: No Drive intox or ride w/intox armor reconnaissance vehicle driver: No Do you feel safe at home: Yes Do you feel safe in your relationship?: Yes Additional Social history: Lives with roommate in trailer at [facility]. 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 SDOH(Care Management) Screening Will the Patient Participate in the Screening?: Declined to provide Do you worry about having a steady place to live?: no In the past 12 months, have you had to go without electric, gas, oil or water in your home?: no Have you or anyone in your house had to go without enough food to eat?: no Has lack of transportation kept you from medical appointments or from doing things needed for daily living?: no Has anyone in your support network made you feel unsafe for any reason?: no Health Related Social Needs Health related social needs details: difficulty obtaining meds due to cost
[2024-02-03 11:22] VITALS: BP 141/66; PULSE 68; RESP 17; TEMP 36.8; O2SAT 96
--- NOTE | 2024-02-03 11:25 | W.PM.DS.N ---
Date of service: 02/03/24 Time of Service: 11:34 DS: Diagnosis Discharge Diagnosis (1) Acute exacerbation of chronic obstructive pulmonary disease: Status: Acute (2) Pneumonia: Status: Acute (3) Diabetes mellitus: Status: Chronic (4) Acute kidney injury: Status: Acute Discharge Plan Disposition Patient Disposition: Home Condition: Improving Discharge Details Reason For Visit: pneumonia,hypoxemia, copd exacerbation,CORINE Admit Date/Time: 02/02/24 16:29 Admit Provider: Jignesh Oneill Attending Provider: Jignesh Oneill Primary Care Provider: Mike Burns Hospital Course Hospital Course: This 78 years old male patient with past medical history of Chronic obstructive pulmonary disease, tobacco abuse, Cerobrovascular accident, diabetes melletus presented to the ED at [facility] on 02/02/24 for evaluation of shortness of breath and dizziness. The patient reported previous evaluation by the urgent care provider who directed him to the emergency department for further evaluation due to his symptoms and vital signs. Patient stated that he has not been taking his medicines for the past month despite his duaghter reporting having initiated insurance coverage for the patient to enable him to get his medicine. The patient had reported that the shortness of breath had started several weeks ago but this was corroborated by the daughter, but she reported a possible syncopal episode on 02/01/2024. Labs in the ED were unremarkable except for BUN of 23 and a creatinine of 1.4 with a baseline around 1.0. The chest x-ray showed new pulmonary infiltrates in the left lower lobe in addition to changes from COPD and chronic interstitial disease. In the ED the patient received nebulizer treatments, IV steroids, ceftriaxone IV and Azithromycin IV. The hospitalist service was consulted and patient admitted to the medical surgical floor for evaluation and management of pneumonia and COPD exacerbation.On arrival to the floor, the patient experienced tachypnea and increased work of breathing with minimal exertion. The patient denied change in vision, fever, chills, chest pain, nausea, vomiting or dysuria. The patient reported dizziness, nasal nasal congestion, cough without hemoptysis. This morning, the patient is requesting to go home. The patient was normotensive and not experiencing any further shortness of breath on minimal exertion, sat are 91 to 96% on RA. Cr is back to 0.9.The patient will be discharged home on cefpodoxime, doxycycline, prednisone burst followed by a short taper, as well as a short course of mucinex. The patient will need to folllow-up with his PCP within a week of discharge. Discussed with Dr. Oneill Home Meds and New Rx's Prescriptions: New guaifenesin [Mucus Relief ER] 600 mg Tablet Extended Release 12hr 600 mg PO BID Qty: 10 0RF cefpodoxime 200 mg tablet 200 mg PO Q12H Qty: 10 0RF Rx Instructions: must administer with a meal/food doxycycline hyclate 100 mg capsule 100 mg PO BID Qty: 12 0RF prednisone 20 mg tablet 40 mg PO DAILY Qty: 4 0RF Rx Instructions: Take 40 mg orally daily for 3 days Then 20 mg orally daily for 2 days then stop Continued aspirin 81 mg tablet,chewable 81 mg PO DAILY losartan 100 mg tablet 100 mg PO DAILY Qty: 90 3RF fluticasone propionate 50 mcg/actuation spray,suspension 2 spray NS DAILY Qty: 1 8RF insulin glargine 100 unit/mL (3 mL) insulin pen 47 unit SC HS Qty: 45 3RF (DME) pen needle, diabetic [Advocate Pen Needle] 33 gauge x 5/32 needle See Rx Instructions .ROUTE .MEDSUPPLY Qty: 100 3RF Rx Instructions: inject once/day Trulicity 0.75 mg/0.5 mL pen injector 0.75 mg SC QWEEK Qty: 6 3RF finasteride 5 mg tablet 5 mg PO DAILY Qty: 90 3RF amlodipine 5 mg tablet 5 mg PO BID Qty: 180 3RF atorvastatin 80 mg tablet 80 mg PO QHS Qty: 90 3RF clopidogrel [Plavix] 75 mg tablet 75 mg PO DAILY Qty: 90 4RF ezetimibe 10 mg tablet 10 mg PO DAILY Qty: 90 4RF nitroglycerin [Nitrostat] 0.4 mg tablet, sublingual 0.4 mg Sublingual PRN Qty: 25 11RF Rx Instructions: 1 TAB SL PRN tamsulosin 0.4 mg capsule 0.8 mg PO DAILY Qty: 180 3RF ivyqetgp-izluypnrk-VA 3.5-10,000-1 mg/mL-unit/mL-% drops,suspension 4 drp otic (ear) TID 10 Days Qty: 10 1RF Rx Instructions: left ear only (DME) Space Chamber Plus 1 EACH spacer 1 ea Miscellaneous PRN Qty: 1 infliximab [Remicade] 100 MG recon soln 1,000 mg IV .[id number] Patient Comments[place]31/[place] [facility]: 1000[place] IV infusion every 6 months. [place] [facility] 03/05/17 q 4 months. si bupropion HCl 150 mg tablet sustained-release 12 hr 150 mg PO BID Qty: 180 3RF lorazepam [Ativan] 1 mg tablet 1 mg PO DAILY PRN (Reason: anxiety) Qty: 2 0RF Rx Instructions: take 1 pill about 1 hour prior to scheduled MRI - if still anxious when you check in at the hospital, may take 2nd pill (DME) blood-glucose meter [FreeStyle Lite Meter] Kit See Rx Instructions .ROUTE .MEDSUPPLY Qty: 1 0RF Rx Instructions: test once/day (DME) Contour Test Strips Strip See Rx Instructions .Route Qty: 300 4RF Rx Instructions: Test three times daily (DME) lancets [TRUEplus Lancets] 28 gauge misc See Rx Instructions .Route Qty: 100 3RF Rx Instructions: test once/day pantoprazole 40 mg tablet,delayed release (DR/EC) 40 mg PO DAILY Qty: 90 3RF Rx Instructions: TAKE 6 HOURS APART FROM YOUR PLAVIX gabapentin 300 mg capsule See Rx Instructions .ROUTE .COMPLEX Qty: 90 5RF Dose Instruction: TAKE ONE CAPSULE BY MOUTH THREE TIMES A DAY Rx Instructions: TAKE ONE CAPSULE BY MOUTH THREE TIMES A DAY albuterol sulfate [Ventolin HFA] 90 mcg/actuation HFA aerosol inhaler 2 inh INHALATION Q6H PRN (Reason: bronchospasm) Qty: 8.5 5RF acetaminophen 650 MG tablet extended release 650 mg PO Q8H PRN (Reason: Pain) Qty: 20 0RF epinephrine 0.3 mg/0.3 mL auto-injector 0.3 mg IM ONCE Qty: 2 0RF Rx Instructions: as a single dose; may repeat once lidocaine HCl [Lidocaine Viscous] 2 % solution 1 applic mucous membrane BID PRNQty: 100 0RF loratadine 10 mg capsule 10 mg PO DAILY Qty: 10 0RF diclofenac sodium 1 % gel 2 g topical QID Qty: 100 0RF Rx Instructions: apply to single elbow, wrist or hand; for hand includes palm/fingers/back of hand Discharge Instructions Stand Alone Forms: Nursing Discharge Form Referrals: Mike Burns MD [Primary Care Provider] - (Follow-up with 7 days of discharge please.) Activity:: Activity as Tolerated Equipment/Supplies:: No Equipment Needed Diet:: heart healthy diabetic Discharge Orders Discharge Orders: Discharge Order (Routine); Ordered 02/03/24 Ordered By: Karlee Knowles DS: Summary Time Spent with Patient providing and/or coordinating discharge services: Greater than 30 minutes Status at Discharge Functional status at discharge: independent ambulation Overall status at discharge: patient is back to baseline Mental Status: mental status grossly normal Speech and Movement: speech and movement normal Mood: congruent mood Affect: normal affect Quality:SDOH Health Related Social Needs: Health related social needs details difficulty obtaining meds due to cost Health related social needs details: difficulty obtaining meds due to cost Exam Narrative Exam Narrative: Neuro:Alert and oriented X3, no focal deficit Resp: Normal respiratory pattern unlabored breathing, Clear lung with improvement of left basilar crackles Cardio: regular rhythm, S1, S2, no murmur GI: Abdomen is not distended, soft and non tender, bowel sounds are present Integumentary: No skin lesions or rash on exposed skin Extremities: strength 5/5 to bilateral lower and upper extremities Psych: RASS 0, congruent mood and normal affect. Psych Mental Status: mental status grossly normal Speech and Movement: speech and movement normal Mood: congruent mood Affect: normal affect DS: Data Vitals/I&O Vitals and I&O: Vital Signs Temperature 36.8 C 02/03/24 11:22 Temperature Source Temporal Artery Scan 02/03/24 11:22 Pulse 68 02/03/24 11:22 Pulse Rhythm Regular 02/03/24 10:14 Respiratory Rate 17 02/03/24 11:22 Respiratory Effort Normal 02/03/24 10:14 Respiratory Depth Shallow 02/03/24 10:14 Respiratory Pattern Normal 02/03/24 10:14 Blood Pressure 141/66 H 02/03/24 11:22 Pulse Oximetry 96 02/03/24 11:22 Oxygen Delivery Method Room Air 02/03/24 11:22 Oxygen Flow Rate 0 02/03/24 11:22 Pain Level 0 02/03/24 11:22 Comment RN notified of O2 02/03/24 07:51 Intake & Output 02/02/24 02/02/2424 11:59 23:59 11:59 Intake Total 383.333 / 552.726 5146.417 / 1235.417 Balance 383.333 / 260.544 0373.417 / 1235.417 Weight 81.647 kg Intake: IV 383.333 / 906.752 2779.417 / 1235.417 Other: Urine Appearance Clear Clear Comment per patient he has been up to the bathroom Data Completed and Pending Labs on day of discharge: Labs from last 24 hours 02/03/24 02/02/24 02/02/24 06:12 21:15 16:15 WBC 8.82 RBC 4.44 Hgb 14.2 Hct 41.6 MCV 94 MCH 32.0 MCHC 34.1 RDW 13.8 Plt Count 209 MPV 11.3 H Immature Gran % 0.7 Neutrophils % 86.4 Lymphocytes % 9.5 Monocytes % 3.3 Eosinophils % 0.0 Basophils % 0.1 Nucleated RBC % 0.0 Absolute Neutrophils 7.62 H Absolute Lymphocytes 0.84 L Absolute Monocytes 0.29 Absolute Eosinophils 0.00 Absolute Basophils 0.01 VBG pH VBG pCO2 VBG pO2 VBG HCO3 VBG Total CO2 VBG O2 Saturation VBG Base Excess VBG Lactate 0.8 Sodium 144 Potassium 4.0 Chloride 109 H Carbon Dioxide 25.5 Anion Gap 9.5 BUN 21 H Creatinine 0.9 Est GFR (CKD-EPI 2020) 88.51 Glucose 131 H 281 H Calcium 9.1 Magnesium 2.0 Total Bilirubin AST ALT Alkaline Phosphatase Troponin I NT-Pro-B Natriuret Pep Total Protein Albumin Procalcitonin < 0.1 COVID-19 Source SARS-CoV-2 (PCR) Influenza Type A (PCR) Influenza Type B (PCR) RSV (PCR) 02/02/24 02/02/24 15:55 15:26 WBC 9.08 RBC 4.38 Hgb 13.9 Hct 41.8 MCV 95 MCH 31.7 MCHC 33.3 RDW 14.2 H Plt Count 206 MPV 10.8 Immature Gran % 0.3 Neutrophils % 62.7 Lymphocytes % 19.8 Monocytes % 13.8 Eosinophils % 3.0 Basophils % 0.4 Nucleated RBC % 0.0 Absolute Neutrophils 5.69 Absolute Lymphocytes 1.80 Absolute Monocytes 1.25 H Absolute Eosinophils 0.27 Absolute Basophils 0.04 VBG pH 7.41 VBG pCO2 41 VBG pO2 60 VBG HCO3 26 VBG Total CO2 23 L VBG O2 Saturation 91 VBG Base Excess 1 VBG Lactate Sodium 141 Potassium 3.7 Chloride 106 Carbon Dioxide 25.8 Anion Gap 9.2 BUN 23 H Creatinine 1.4 H Est GFR (CKD-EPI 2020) 52.09 Glucose 118 H Calcium 8.5 Magnesium Total Bilirubin 0.6 AST 15 ALT 25 Alkaline Phosphatase 72 Troponin I < 50 NT-Pro-B Natriuret Pep 248 Total Protein 6.4 Albumin 2.8 L Procalcitonin COVID-19 Source Nasopharynx SARS-CoV-2 (PCR) Negative Influenza Type A (PCR) Negative Influenza Type B (PCR) Negative RSV (PCR) Negative 02/02/24 19:20 Blood Blood Culture - Pending 02/02/24 16:15 Blood Blood Culture - Pending Preliminary micro results at discharge 02/02/24 19:20 Blood Culture - Pending Blood 02/02/24 16:15 Blood Culture - Pending Blood PFSH All Active Problems (Updated 02/03/24 @ 12:04 by Karlee Knowles APRN) On deep vein thrombosis (DVT) prophylaxis (Acute) Discharge planning issues (Acute) Acute kidney injury (Acute) Pneumonia (Acute) Acute exacerbation of chronic obstructive pulmonary disease (Acute) Hypoxia (Acute) Breath shortness (Acute) Acute hypotension (Acute) Acute otitis externa of left ear (Acute) Ear pain, right (Acute) Impetigo (Acute) [place] (dyspnea on exertion) (Acute) Cellulitis (Acute) Epistaxis (Acute) Nasal vestibulitis (Acute) Sensorineural hearing loss, bilateral (Acute) Impacted cerumen, bilateral (Acute) Weight loss (Acute) Elevated PSA, between 10 and less than 20 ng/ml (Acute) Chronic obstructive lung disease (Chronic) pulmonary fibrosis on chest xray ongoing tobacco use add back budesonide nebs to see if we can improve cough Diabetes mellitus (Chronic 05/05/13) check A1c and creat Gastroesophageal reflux disease (Chronic) Hyperlipidemia (Chronic 05/05/13) Kidney stone (Acute 09/14/14) recurrent x3 on left [facility] [place]; F/U Dr. Fair Male erectile disorder (Acute 08/29/13) Palpitations (Acute 11/04/12) multiple PVCs, bradycardia (2013) ([facility] Abraham, echo normal LVEF and stress test neg ischemia) Rheumatoid arthritis (Chronic 05/05/13) [facility] Leon Smoker (Chronic) Tubular adenoma (Acute) 11/20 COLONOSCOPY: ONE TUBULOVILLOUS ADENOMA & TWO TUBULAR ADENOMAS. 05/22/13: DR. 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 venom (Acute) Cellulitis of ear (Acute) Aortic atherosclerosis (Acute) Emphysema lung (Acute) Tubular adenoma of colon (Acute) COPD with acute exacerbation (Acute) 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) Cardiomyopathy (Acute) Otitis externa, left (Acute) Medical History Eczema Hypoxemia Acute kidney injury Sepsis COPD (chronic obstructive pulmonary disease) BPH loc w urin obs/LUTS Myocardial infarction 2020 x2 stents Hypertension same meds, good BP here today CVA (cerebral vascular accident) (11/21/17) ASCVD (arteriosclerotic cardiovascular disease) (05/05/13) 2 NEW STENTS 04/22 H/O IMI; angioplasty and stent; PA , 02/11; CVA/TIA Surgical History Stented coronary artery 05[place]25/[place] [facility] s/p stent of old stent-KB History of incisional hernia repair History of knee surgery RESECTION ANGIOFIBROMA;RIGHT FOOT 02/04/18 KNEE REPAIR RIGHT Hernia Repair, Incisional Excision, Lipoma (05/19/16) posterior neck Colostomy (~2006) TEMP W/ REVISION Colonoscopy - MAC (11/13/16) Colonoscopy - MAC (05/16/13) Family History Mother Essential hypertension Heart disease Stroke Father Stroke Brother Heart disease Family History Diabetes Heart disease Cancer Brother No problems noted. Brother No problems noted. Sister No problems noted. Sister Alcohol abuse Social History Smoking/Tobacco Use Status: Current every day Tobacco Type: cigarettes Tobacco: How many years used: 60 Quit status: has quit before Second Hand Exposure: Yes Smoking risk assessment performed?: Yes Alcohol Intake: former Drug use: Never Substance use type: does not use Household members: family Housing: other Communication Needs: None Do you need help understanding health information?: Rarely Pets and animals: Yes Pets and animals: cat(s) Sexually active: No Current gender identity: male What is your relationship status?: How often do you talk on the phone with friends or family?: three or more times per week How often do you get together with friends or relatives?: twice per week How often do you attend sabianist or bahai services?: decline to answer Do you belong to any clubs or organized social groups?: no Panel score (0-1 are the most socially isolated patients): 1 What type of physical activity do you participate in: walking Duration: < 15 minutes/day Frequency: 1-2 times per week Monika/Protestant: None Special monika needs: No Seatbelt use: sometimes Helmet use: No Drive intox or ride w/intox route sales driver: No Do you feel safe at home: Yes Do you feel safe in your relationship?: Yes Additional Social history: Lives with roommate in trailer at [facility]. 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 4 adult kids in the area. Time Spent with Patient Time Spent with Patient: >85 minutes Time was spent: preparing to see the patient(eg.review tests), obtaining and/or reviewing separately otained hiistory, ordering medications,tests, procedures, referring, communicating with other health career technical education teacher, indepentently interpreting results, counseling the patient and care coordination
[2024-02-03 11:46] VITALS: PULSE 72; RESP 18; RESP 9; O2SAT 94
[2024-02-03] MEDS: cefTRIAXone 1 GM/50 ML BAG IVPB (12:15)
[2024-02-03] MEDS: Normal Saline Flush 10 ML SYR IVP (12:15)
--- NOTE | 2024-02-03 16:42 | CMDISCH_ITS ---
Date of service: 02/03/24 Time of Service: 16:42 LACE Index Scoring Tool Questions: Length of Stay (in days): 1 Was the patient admitted via the E.D.?: Yes Comorbidities: Diabetes w/o Complication and Chronic Pulmonary Disease Care Management Discharge Plan Reason for Hospitalization: COPD exacerbation Discharge Plan: Pops will be discharged home with no new services. He will follow up with his community providers and plan of care and transport with his [id number]. Patient/Family Education Needs: Review of discharge instructions, follow up plan, discuss Ask Me Three. SDOH Health Related Social Needs: Health related social needs details difficulty obtaini ng meds due to cost Health related social needs details: difficulty obtaining meds due to cost Referrals and interventions: referral to [facility] to see if Medicaid eligible Care Management Referrals: [facility] Referral for Financial Health Care Support: Prescriptions and Financial Assistance (has financial assist 100%)
--- NOTE | 2024-02-03 17:00 | PDOC.CMPRO ---
Date of service: 02/03/24 Time of Service: 17:00 Care Management Progress Note Progress Note Text Progress Note Text: Arcenio was admitted yesterday ( 02/02/24) with a COPD exacerbation. He was treated with nebulizers, steroids and antibiotics and improved significantly overnight. This morning he requested to be discharged. His shortness of breath was better and he was saturating at 96% on room air, so the provider discharged him home to continue with the antibiotics and steroids. Discharge Potential Discharge Needs: PCP F/U Appt Anticipated Barriers to Discharge: None Identified Patient/Family Education Needs: Review discharge instructions, discuss Ask Me Three Transportation: Private vehicle SDOH(Care Management) Screening Will the Patient Participate in the Screening?: Declined to provide Do you worry about having a steady place to live?: no In the past 12 months, have you had to go without electric, gas, oil or water in your home?: no Have you or anyone in your house had to go without enough food to eat?: no Has lack of transportation kept you from medical appointments or from doing things needed for daily living?: no Has anyone in your support network made you feel unsafe for any reason?: no Health Related Social Needs Health related social needs details: difficulty obtaining meds due to cost
== END 2024-02-03 13:15 | disposition home or self-care (01) ==
LOC: ER 16:11 → MS 19:32
PROVIDERS: Nurse Practitioner Acute Care; Admitting Provider Family Medicine; Emergency Provider Emergency Medicine; PCP Family Medicine; Visit Provider Family Medicine
DX: J44.1 Chronic obstructive pulmonary disease with (acute) exacerbation (principal); J18.9 Pneumonia, unspecified organism; J44.0 Chronic obstructive pulmonary disease with (acute) lower respiratory infection; N17.9 Acute kidney failure, unspecified; Z79.899 Other long term (current) drug therapy; F17.210 Nicotine dependence, cigarettes, uncomplicated; Z86.73 Personal history of transient ischemic attack (TIA), and cerebral infarction without residual deficits; R09.02 Hypoxemia; H90.3 Sensorineural hearing loss, bilateral; K21.9 Gastro-esophageal reflux disease without esophagitis; E78.5 Hyperlipidemia, unspecified; I42.9 Cardiomyopathy, unspecified; I70.0 Atherosclerosis of aorta; Z95.5 Presence of coronary angioplasty implant and graft; I25.10 Atherosclerotic heart disease of native coronary artery without angina pectoris; I25.2 Old myocardial infarction; N40.1 Benign prostatic hyperplasia with lower urinary tract symptoms; L30.9 Dermatitis, unspecified
CPT/HCPCS: 00123; 36415; 80048; 80053; 82805; 82947; 84145; 87040; 87637; 93005; 94640; 96361; 96365; 96366; 96367; 99285; J1650; 71045; 83605; 83735; 83880; 84484; 85025; 93010; 94667; 94760; 99223; 99239; J0456; J0696; J1815; J2919; J3490; J7620

== ENCOUNTER → 2024-02-25 13:18 | Outpatient (CLI) | payer MEDICARE, SELFPAY ==
--- NOTE | 2024-02-25 09:00 | DI.RAD_ITS ---
Exam(s) XR CHEST 2V PA LATERAL EXAM: XR CHEST 2V PA LATERAL CLINICAL HISTORY: reassess pneumonia R05.3 CHRONIC COUGH. TECHNIQUE: 2D digital imaging was performed. COMPARISON: CR XR PORTABLE CHEST AP from 02/02/2024 FINDINGS: 2 views: Heart size is upper normal. The mediastinum is not widened. Extensive bilateral interstitial disease again noted, most probably an element of pulmonary fibrosis. The previously described superimposed increased markings in left lower lobe exhibits mild improveme nt. There are no pleural effusions. IMPRESSION: Minimal improvement in left lower lobe infiltrate which is superimposed upon extensive bilateral inte rstitial fibrosis disease. There are no pleural effusions. DATA REPOSITORY: RADIATION DOSE DELIVERED:
== END ==
PROVIDERS: PCP Family Medicine; Visit Provider Family Medicine
DX: R05.3 Chronic cough (principal)
CPT/HCPCS: 71046

== ENCOUNTER 2024-02-28 11:15 | Outpatient (REF) | payer MEDICARE, SELFPAY ==
--- NOTE | 2024-02-28 10:15 | SKI_PTH ---
PATIENT: Bobby Cooley Sr LOC: [facility] U#:[id number] AGE/SX: 78/M ROOM: RE02/28/[address]: Torres Loco MD : [id number] BED: DIS: 02/28/2024 SPEC #: [id number] RECD: 02/28/24 17:58 STATUS: BRAYANCecelia REGiacomo #: [id number] HARPREET: 02/28/24 10:[address]: Torres Loco DEPT: Surgical Specimen RECD BY: Leona Garcia ENTERED: 02/28/24 17:59 SP TYPE: MARITO AVILA DR: Mike Burns MD Tissues: 1 - SKIN BIOPSY(SHAVE/PUNCH) Procedures: GROSS AND MICRO LEVEL 4 SPECIAL STAIN 1 Comments: [id number]
== END 2024-02-28 11:16 | disposition home or self-care (01) ==
LOC: LBN 11:15
PROVIDERS: PCP Family Medicine; Visit Provider Otolaryngology
DX: J34.89 Other specified disorders of nose and nasal sinuses (principal); R23.4 Changes in skin texture; Z72.0 Tobacco use
CPT/HCPCS: 88305; 88312

== ENCOUNTER 2024-02-29 04:50 | Outpatient (RCR) | payer MEDICARE, SELFPAY ==
[2023-11-12 00:14] VITALS: BP 132/78; PULSE 50; RESP 17; TEMP 36.6
[2024-02-29] VITALS (9 sets, daily range): BP systolic 136–151; BP diastolic 57–77; PULSE 51–67; RESP 17–18; TEMP 36.6–37.1; O2SAT 92–95
[2024-02-29] MEDS: diphenhydrAMINE 25 MG CAP PO (07:24)
[2024-02-29] MEDS: Acetaminophen 325 MG TAB 650 MG PO (07:25)
[2024-02-29] MEDS: Normal Saline Flush 10 ML SYR IVP (07:25)
[2024-02-29] MEDS: riTUXimab-PVVR 1,000 MG in Normal Saline 150 ML 62.5 MG IVPB (08:08)
== END 2024-03-12 23:59 | disposition home or self-care (01) ==
LOC: INF 04:50
PROVIDERS: PCP Family Medicine; Visit Provider Nurse Practitioner Acute Care
DX: M06.9 Rheumatoid arthritis, unspecified (principal)
CPT/HCPCS: 96365; 96366; Q5119

== ENCOUNTER → 2024-03-06 09:55 | Outpatient (BNVA) | payer MEDICARE, SELFPAY | PROVIDERS: PCP Family Medicine; Referring Provider Family Medicine; Visit Provider Physician Assistant Surgical | DX: J84.10 Pulmonary fibrosis, unspecified (principal); J96.11 Chronic respiratory failure with hypoxia; J44.9 Chronic obstructive pulmonary disease, unspecified; F17.200 Nicotine dependence, unspecified, uncomplicated | CPT/HCPCS: 99215 ==

== ENCOUNTER 2024-03-07 03:31 | Outpatient (CLI) | payer MEDICARE, SELFPAY ==
--- NOTE | 2024-03-21 15:40 | W.6MWT ---
Date of service: 03/07/24 Time of Service: 11:30 6 Minute Walk Test Note: Patient walked 244meters and demonstrated O2 desaturations to 83% requiring 6L O2 continuous flow.
== END 2024-03-07 03:32 | disposition home or self-care (01) ==
PROVIDERS: PCP Family Medicine; Visit Provider Physician Assistant Surgical
DX: J84.10 Pulmonary fibrosis, unspecified (principal)
CPT/HCPCS: 00123; 94618

== ENCOUNTER → 2024-04-11 13:50 | Outpatient (BNVA) | payer MEDICARE, SELFPAY | PROVIDERS: PCP Family Medicine; Referring Provider Family Medicine; Visit Provider Nurse Practitioner Gerontology | DX: K62.5 Hemorrhage of anus and rectum (principal); K59.00 Constipation, unspecified; N42.89 Other specified disorders of prostate | CPT/HCPCS: 99213 ==

== ENCOUNTER 2024-05-02 15:00 | Outpatient (REF) | payer MEDICARE, SELFPAY | END 2024-05-02 15:01 | disposition home or self-care (01) | LOC: LBN 15:00 | PROVIDERS: PCP Family Medicine; Visit Provider Otolaryngology | DX: H60.63 Unspecified chronic otitis externa, bilateral (principal) | CPT/HCPCS: 87077; 87070; 87186; 87205 ==

== ENCOUNTER 2024-05-24 03:27 | Outpatient (CLI) | payer MEDICARE, SELFPAY ==
[2024-05-24 18:35] LABS: PSA, Diagnostic 2.3 ng/mL (<=6.5)
== END 2024-05-24 03:28 | disposition home or self-care (01) ==
LOC: LBO 03:27
PROVIDERS: PCP Family Medicine; Visit Provider Nurse Practitioner Gerontology
DX: R97.20 Elevated prostate specific antigen [PSA] (principal); N40.1 Benign prostatic hyperplasia with lower urinary tract symptoms
CPT/HCPCS: 36415; 84153

== ENCOUNTER → 2024-05-31 10:23 | Outpatient (BNVA) | payer MEDICARE, SELFPAY | PROVIDERS: PCP Family Medicine; Visit Provider Nurse Practitioner Gerontology | DX: R39.11 Hesitancy of micturition (principal); R35.0 Frequency of micturition; N20.0 Calculus of kidney; N40.1 Benign prostatic hyperplasia with lower urinary tract symptoms; R97.20 Elevated prostate specific antigen [PSA] | CPT/HCPCS: 99213 ==

== ENCOUNTER → 2024-06-05 12:56 | Outpatient (BNVA) | payer MEDICARE, SELFPAY | PROVIDERS: PCP Family Medicine; Referring Provider Family Medicine; Visit Provider Physician Assistant Surgical | DX: J44.9 Chronic obstructive pulmonary disease, unspecified (principal); J84.10 Pulmonary fibrosis, unspecified; M06.9 Rheumatoid arthritis, unspecified; J96.11 Chronic respiratory failure with hypoxia; F17.210 Nicotine dependence, cigarettes, uncomplicated | CPT/HCPCS: 99214 ==

== ENCOUNTER 2024-06-27 01:59 | Outpatient (RCR) | payer MEDICARE, SELFPAY ==
[2024-03-13 00:13] VITALS: BP 132/78; PULSE 50; RESP 17; TEMP 36.6
[2024-06-27] VITALS (9 sets, daily range): BP systolic 124–162; BP diastolic 62–87; PULSE 52–73; RESP 16–18; TEMP 36.8–37.2; O2SAT 92–98
[2024-06-27] MEDS: Normal Saline Flush 10 ML SYR IVP (07:57)
[2024-06-27] MEDS: riTUXimab-PVVR 1,000 MG in Normal Saline 150 ML 62.5 MG IVPB (07:58)
== END 2024-07-13 23:59 | disposition home or self-care (01) ==
LOC: INF 01:59
PROVIDERS: PCP Family Medicine; Visit Provider Nurse Practitioner Acute Care
DX: M06.9 Rheumatoid arthritis, unspecified (principal)
CPT/HCPCS: 96365; 96366; Q5119

== ENCOUNTER 2024-07-01 13:07 | Inpatient (IN) | payer MEDICARE, SELFPAY ==
[2024-07-01] VITALS (38 sets, daily range): BP systolic 83–163; BP diastolic 47–128; PULSE 62–100; RESP 9–37; TEMP 36.1–36.5; O2SAT 78–97
--- NOTE | 2024-07-01 13:00 | RT.EKG_ITS ---
APPROVED REPORT Exam: Resting ECG Reason for Exam: SOB Patient Location: E HR:74 bpm ECG Measurements Heart Rate 74 AXIS OR 221 P -50 QRSd 102 QRS -53 QT 391 T 5 QTc 434 Conclusion Sinus rhythm, rate 74, with PVC 1st degree HB, OR interval 221ms Q waves II, III, aVF, present on priors No STEMI
--- NOTE | 2024-07-01 13:15 | DI.CT_ITS ---
Exam(s) CT CHEST PE CTA EXAM: CT CHEST PE CTA CLINICAL HISTORY: SOB, hypoxia. TECHNIQUE: Imaging Protocol: Axial CT angiography was performed with multi-slice acquisition and mu lti-planar and/or 3D reconstructions. CONTRAST MATERIAL: Intravenous: Omnipaque 350 contrast volume:100 mL COMPARISON: CT CT CHEST PE CTA from 10/05/[address] CHEST WO from 08/11/2023 CR XR CHEST 2V PA LATERAL from 02/25/2024 FINDINGS: Tracheobronchial tree: Patent where visualized. No bronchiectasis. Pulmonary parenchyma: Moderately severe centrilobular emphysematous changes are present. Pulmonary f ibrotic changes are seen in the lung bases. No focal consolidating infiltrates are present. Pulmonary Arteries: There are filling defects seen to branches of the left lingula consistent with pu lmonary emboli. No evidence of a saddle embolus. Mediastinum and Delilah: No dominant adenopathy or fluid collection. The esophagus is unremarkable. Visualized thyroid gland: Unremarkable. Pleura: No effusion or pneumothorax. Heart: The heart is not dilated. Coronary artery calcification is present. No pericardial effusion. No evidence of right heart strain. Aorta: Thoracic aorta non-dilated. Atherosclerotic calcification is present. The timing of the bolus , the aorta is insufficiently opacified for evaluation of dissection. Upper abdomen: The lack of IV contrast in the upper abdominal organs limits evaluation. Soft tissues: Unremarkable. Bones: Within normal limits for the patient's age. IMPRESSION: 1. Pulmonary emboli seen in branches to the left lingula. No evidence of right heart strain. 2. Pulmonary emphysema and fibrosis. RADIATION DOSE DELIVERED: 91.91mGy.cm Total DLP DATA REPOSITORY: All CT scans at this facility are submitted to the National Radiology Data Registry (NRDR) Dose Index Registry (DIR) with the [employer] (ACR). RADIATION OPTIMIZATION: All CT scans at this facility use at least one of these dose optimization te chniques: automated exposure control; mA and/or kV adjustment per patient size (includes targeted exa ms where dose is matched to clinical indication); or iterative reconstruction.
[2024-07-01 13:29] LABS: BE (Venous) 1 mmol/L (-2-3); HCO3 (Venous) 25 mmol/L (23-28); O2 Sat (Venous) 84 %; TCO2 (Venous) 22 mmol/L (24-29); pCO2 (Venous) 37 mmHg (41-51); pH (Venous) 7.44 (7.31-7.41); pO2 (Venous) 47 mmHg
[2024-07-01 13:31] LABS: Abs Immature Grans 0.02 10^3/uL (0.0-0.06); Absolute Basophil Count 0.04 10^3/uL (0.0-0.2); Absolute Eosinophil Count 0.41 10^3/uL (0.0-0.7); Absolute Lymphocyte Count 0.96 10^3/uL (1.2-3.4); Absolute Monocyte Count 1.24 10^3/uL (0.1-0.8); Absolute Neutrophil Count 3.82 10^3/uL (1.2-6.7); Basophils % 0.6 %; Eosinophils % 6.3 %; HCT 44.7 % (40.0-50.0); HGB 14.7 g/dL (13.5-17.5); Immature Grans % 0.3 %; Lymphocytes % 14.8 %; MCH 31.5 pg (27.0-33.0); MCHC 32.9 % (32.0-36.0); MCV 96 fL (80-95); MPV 10.7 fL (8.0-11.0); Monocytes % 19.1 %; Neutrophils % 58.9 %; Platelet Count 165 10^3/uL (130-400); RBC 4.67 10^6/uL (4.36-5.78); RDW 14.2 % (11.8-14.1); RDW-SD 49.9 fL; WBC 6.49 10^3/uL (4.4-10.8)
[2024-07-01 13:32] LABS: Lactate 2.5 mmol/L (0.6-1.4)
[2024-07-01 13:55] LABS: ALT 23 U/L (16-63); AST 23 U/L (15-37); Albumin 2.9 g/dL (3.4-5.0); Alkaline Phosphatase 85 U/L (46-116); Anion Gap 10.2 mmol/L (3-11); BUN 19 mg/dL (7-18); Bilirubin, Total 0.68 mg/dL (0.2-1.0); CO2 24.8 mmol/L (21.0-32.0); CREATININE 1.4 mg/dL (0.70-1.30); Chloride 105 mmol/L (98-107); Estimated GFR 52.09 (mL/min/1.73m2); Glucose 152 mg/dL (74-106); Lipase 33 U/L (16-77); Potassium 4.4 mmol/L (3.5-5.1); Sodium 140 mmol/L (136-145); Total Protein 6.3 g/dL (6.4-8.2); Troponin I 14 ng/L (<or=76)
--- NOTE | 2024-07-01 13:55 | W.ED.GENAD ---
Discharge Plan Disposition Patient Disposition: Admit to [facility] Condition: Stable Discharge Details Clinical Impression: Acute hypoxic respiratory failure, COPD exacerbation, Pulmonary embolism Primary Care Provider: Mike Burns ED Provider: Nghia Carty Home Meds and New Rx's Prescriptions: No Action aspirin 81 mg tablet,chewable 81 mg PO DAILY fluticasone propionate 50 mcg/actuation spray,suspension 2 spray NS DAILY Qty: 1 8RF insulin glargine 100 unit/mL (3 mL) insulin pen 47 unit SC HS Qty: 45 3RF Trulicity 0.75 mg/0.5 mL pen injector 0.75 mg SC QWEEK Qty: 6 3RF finasteride 5 mg tablet 5 mg PO DAILY Qty: 90 3RF losartan 100 mg tablet 100 mg PO DAILY Qty: 90 3RF (DME) pen needle, diabetic [Advocate Pen Needle] 33 gauge x 5/32 needle See Rx Instructions .ROUTE .MEDSUPPLY Qty: 100 3RF Rx Instructions: inject once/day amlodipine 5 mg tablet 5 mg PO BID Qty: 180 3RF nitroglycerin [Nitrostat] 0.4 mg tablet, sublingual 0.4 mg Sublingual PRN Qty: 25 11RF Rx Instructions: 1 TAB SL PRN loratadine 10 mg capsule 10 mg PO DAILY PRN Anoro Ellipta 62.5-25 mcg/actuation blister with device 1 inh inhalation DAILY Qty: 60 12RF mupirocin 2 % ointment 1 applic topical TID Qty: 50 1RF Rx Instructions: Apply to both ear canals, fingernails, anterior nares docusate sodium [Colace] 100 mg capsule 100 mg PO DAILY Qty: 90 1RF (DME) Space Chamber Plus 1 EACH spacer 1 ea Miscellaneous PRN Qty: 1 infliximab [Remicade] 100 MG recon soln 1,000 mg IV .[id number] Patient Comments: [place]31[place] [facility] [place] 1000[place] IV infusion every 6 months. [place] [facility] [place] 03/05/17 q 4 months. si lorazepam [Ativan] 1 mg tablet 1 mg PO DAILY PRN (Reason: anxiety) Qty: 2 0RF Rx Instructions: take 1 pill about 1 hour prior to scheduled MRI - if still anxious when you check in at the hospital, may take 2nd pill (DME) blood-glucose meter [FreeStyle Lite Meter] Kit See Rx Instructions .ROUTE .MEDSUPPLY Qty: 1 0RF Rx Instructions: test once/day (DME) Contour Test Strips Strip See Rx Instructions .Route Qty: 300 4RF Rx Instructions: Test three times daily (DME) lancets [TRUEplus Lancets] 28 gauge misc See Rx Instructions .Route Qty: 100 3RF Rx Instructions: test once/day pantoprazole 40 mg tablet,delayed release (DR/EC) 40 mg PO DAILY Qty: 90 3RF Rx Instructions: TAKE 6 HOURS APART FROM YOUR PLAVIX albuterol sulfate [Ventolin HFA] 90 mcg/actuation HFA aerosol inhaler 2 inh INHALATION Q6H PRN (Reason: bronchospasm) Qty: 8.5 5RF bupropion HCl 150 mg tablet sustained-release 12 hr 150 mg PO BID Qty: 180 3RF clopidogrel [Plavix] 75 mg tablet 75 mg PO DAILY Qty: 90 4RF tamsulosin 0.4 mg capsule 0.8 mg PO DAILY Qty: 180 3RF sildenafil 100 mg tablet 100 mg PO DAILY PRN (Reason: sexual activity) Qty: 5 12RF Rx Instructions: administer 30 minutes to 4 hours before activity. Do not use nitro at the same time as this medication atorvastatin 80 mg tablet 80 mg PO QHS Qty: 90 3RF ezetimibe 10 mg tablet 10 mg PO DAILY Qty: 90 4RF gabapentin 300 mg capsule See Rx Instructions .ROUTE .COMPLEX Qty: 90 5RF Dose Instruction: TAKE ONE CAPSULE BY MOUTH THREE TIMES A DAY Rx Instructions: TAKE ONE CAPSULE BY MOUTH THREE TIMES A DAY acetaminophen 650 MG tablet extended release 650 mg PO Q8H PRN (Reason: Pain) Qty: 20 0RF epinephrine 0.3 mg/0.3 mL auto-injector 0.3 mg IM ONCE Qty: 2 0RF Rx Instructions: as a single dose; may repeat once HPI General Date/Time Provider Initiated Documentation: 07/01/24 13:20. HPI Narrative: 78 year-old male presents to ED today by POV/ambulating with a chief complaint of bilateral R>L shoulder pain, got a flu/covid shot in R shoulder, also reports a fall Wednesday with R shoulder pain as well. Concern for hypoxia on arrival with SpO2 70%'s walking in to triage, known COPD. Quality described as generalized shoulder pain, no radiation to hemoptysis, fevers but does endorse sweating, endorses pain radiating to L arm and neck, denies cough/URI, denies abdominal pain, denies nausea/vomiting. Severity is described as moderate. Palliating factors include nothing specific attempted. Provoking factors include nothing specific. Patient not anticoagulated. Related Data Home Medications ?Medication ?Instructions ?Recorded ?Confirmed inhalational spacing device (Space ##1 05/27/15 07/01/24 Chamber Plus) infliximab 100 mg intravenous 1,000 mg IV .[id number] 05/31/15 07/01/24 solution (Remicade) acetaminophen 650 mg 650 mg PO Q8H PRN Pain ##20 04/30/17 07/01/24 tablet,extended release epinephrine 0.3 mg/0.3 mL 0.3 mg (0.3 mL) IM ONCE #2 ea 03/12/21 07/01/24 injection, auto-injector aspirin 81 mg chewable tablet 81 mg PO DAILY 05/27/21 07/01/24 amlodipine 5 mg tablet 5 mg PO BID #180 tabs 03/18/23 07/01/24 lorazepam 1 mg tablet (Ativan) 1 mg PO DAILY PRN anxiety #2 tabs 05/14/23 07/01/24 blood-glucose meter (FreeStyle #1 ea 06/01/23 07/01/24 Lite Meter kit) nitroglycerin 0.4 mg sublingual 0.4 mg sublingual PRN #25 tab-caps 06/23/23 07/01/24 tablet (Nitrostat) blood sugar diagnostic (Contour #300 ea 07/27/23 07/01/24 Test Strips) dulaglutide 0.75 mg/0.5 mL 0.75 mg (0.5 mL) subcut QWEEK #6 mL 09/22/23 07/01/24 subcutaneous pen injector (Trulicity) finasteride 5 mg tablet 5 mg PO DAILY #90 tabs 09/22/23 07/01/24 fluticasone propionate 50 2 spray NS DAILY #1 g 09/22/23 07/01/24 mcg/actuation nasal spray,suspension insulin glargine 100 unit/mL (3 47 unit (0.47 mL) subcut HS #45 mL 09/22/23 07/01/24 mL) subcutaneous pen lancets 28 gauge (TRUEplus Lancets) #100 ea 09/25/23 07/01/24 pantoprazole 40 mg tablet,delayed 40 mg PO DAILY #90 tabs 10/16/23 07/01/24 release albuterol sulfate 90 mcg/actuation 2 inh inhalation Q6H PRN 12/27/23 07/01/24 aerosol inhaler (Ventolin HFA) bronchospasm #8.5 grams bupropion HCl 150 mg tablet,12 hr 150 mg PO BID #180 tabs 02/28/24 07/01/24 sustained-release loratadine 10 mg capsule 10 mg PO DAILY PRN 03/06/24 07/01/24 umeclidinium 62.5 mcg-vilanterol 1 inh inhalation DAILY #60 ea 03/06/24 07/01/24 25 mcg/actuation powdr for inhalation (Anoro Ellipta) clopidogrel 75 mg tablet (Plavix) 75 mg PO DAILY #90 tabs 04/11/24 07/01/24 docusate sodium 100 mg capsule 100 mg PO DAILY #90 caps 04/11/24 07/01/24 (Colace) tamsulosin 0.4 mg capsule 0.8 mg (2 x 0.4 mg) PO DAILY #180 04/15/24 07/01/24 caps sildenafil 100 mg tablet 100 mg PO DAILY PRN sexual 05/02/24 07/01/24 activity #5 tabs mupirocin 2 % topical ointment 1 applic topical TID #50 grams 05/10/24 07/01/24 atorvastatin 80 mg tablet 80 mg PO QHS #90 tabs 05/23/24 07/01/24 ezetimibe 10 mg tablet 10 mg PO DAILY #90 tabs 05/23/24 07/01/24 gabapentin 300 mg capsule See Rx Instructions .Route 06/03/24 07/01/24 .COMPLEX #90 caps losartan 100 mg tablet 100 mg PO DAILY #90 tabs 06/29/24 07/01/24 pen needle, diabetic 33 gauge x #100 ea 06/29/24 07/01/24 5/32 (Advocate Pen Needle) Previous Rx's ?Medication ?Instructions ?Recorded acetaminophen 650 mg 650 mg PO Q8H PRN Pain ##20 04/30/17 tablet,extended release epinephrine 0.3 mg/0.3 mL 0.3 mg (0.3 mL) IM ONCE #2 ea 03/12/21 injection, auto-injector amlodipine 5 mg tablet 5 mg PO BID #180 tabs 03/18/23 lorazepam 1 mg tablet (Ativan) 1 mg PO DAILY PRN anxiety #2 tabs 05/14/23 blood-glucose meter (FreeStyle #1 ea 06/01/23 Lite Meter kit) nitroglycerin 0.4 mg sublingual 0.4 mg sublingual PRN #25 tab-caps 06/23/23 tablet (Nitrostat) blood sugar diagnostic (Contour #300 ea 07/27/23 Test Strips) dulaglutide 0.75 mg/0.5 mL 0.75 mg (0.5 mL) subcut QWEEK #6 mL 09/22/23 subcutaneous pen injector (Trulicity) finasteride 5 mg tablet 5 mg PO DAILY #90 tabs 09/22/23 fluticasone propionate 50 2 spray NS DAILY #1 g 09/22/23 mcg/actuation nasal spray,suspension insulin glargine 100 unit/mL (3 47 unit (0.47 mL) subcut HS #45 mL 09/22/23 mL) subcutaneous pen lancets 28 gauge (TRUEplus Lancets) #100 ea 09/25/23 pantoprazole 40 mg tablet,delayed 40 mg PO DAILY #90 tabs 10/16/23 release albuterol sulfate 90 mcg/actuation 2 inh inhalation Q6H PRN 12/27/23 aerosol inhaler (Ventolin HFA) bronchospasm #8.5 grams bupropion HCl 150 mg tablet,12 hr 150 mg PO BID #180 tabs 02/28/24 sustained-release umeclidinium 62.5 mcg-vilanterol 1 inh inhalation DAILY #60 ea 03/06/24 25 mcg/actuation powdr for inhalation (Anoro Ellipta) clopidogrel 75 mg tablet (Plavix) 75 mg PO DAILY #90 tabs 04/11/24 docusate sodium 100 mg capsule 100 mg PO DAILY #90 caps 04/11/24 (Colace) tamsulosin 0.4 mg capsule 0.8 mg (2 x 0.4 mg) PO DAILY #180 04/15/24 caps sildenafil 100 mg tablet 100 mg PO DAILY PRN sexual 05/02/24 activity #5 tabs mupirocin 2 % topical ointment 1 applic topical TID #50 grams 05/10/24 atorvastatin 80 mg tablet 80 mg PO QHS #90 tabs 05/23/24 ezetimibe 10 mg tablet 10 mg PO DAILY #90 tabs 05/23/24 gabapentin 300 mg capsule See Rx Instructions .Route 06/03/24 .COMPLEX #90 caps losartan 100 mg tablet 100 mg PO DAILY #90 tabs 06/29/24 pen needle, diabetic 33 gauge x #100 ea 06/29/24 (Advocate Pen Needle) Allergies Allergy/AdvReac Type Severity Reaction Status Date / Time venom-honey bee (bee venom Allergy Severe ANAPHYLAXSI Verified 07/01/24 13:21 (honey bee)) S Sulfa (Sulfonamide Allergy Unknown unknown Verified 07/01/24 13:21 Antibiotics) leflunomide (From Arava) AdvReac Intermediate DIARRHEA Verified 07/01/24 13:21 metformin AdvReac Intermediate diarrhea Verified 07/01/24 13:21 General Stated Complaint: SOB STAR: 2 Review of Systems All systems reviewed & are unremarkable except as noted in HPI and below Exam Narrative Exam Narrative: GENERAL APPEARANCE: Well-nourished, non-toxic, awake and alert, atraumatic, no acute distress. SKIN: Warm, pink, dry, intact, without rashes/lesions/ulcerations. HEAD: Normocephalic, atraumatic, normal hair distribution for gender/age. EYES: Normal conjunctiva, no exudates on lids/lashes. ENT: Nares patent, no circumoral cyanosis, no facial swelling NECK: Supple, trachea midline, painless cervical ROM. LUNGS/CHEST: Poor air movement, wheezing on L, diminished on the R, labored respirations, increased A/P diameter, symmetrical expansion, no chest wall deformity HEART (CV/PV): Regular rate and rhythm without murmur, no peripheral edema, no JVD. ABDOMEN: Soft, non-distended, no guarding, no tenderness. MSK: Normal ROM, no swelling/deformity to bilateral UEs or LEs, moving all extremities without weakness, no cyanosis, spine midline without tenderness, normal curvature. NEURO: Mental Status AAOx4 - alert to person, place, time, events No facial droop, no forehead involvement. Motor: No focal weakness - strength 5/5 in bilateral UEs and LEs, proximal and distal, symmetric. Sensory: sensation intact to light touch globally. Gait normal: patient ambulated without ataxia into ED room. PSYCH: euthymic, cooperative, pleasant, appropriate speech Course Vital Signs Vital signs: Vital Signs Temperature 36.4 C 07/01/24 13:16 Pulse 99 H 07/01/24 13:16 Respiratory Rate 24 07/01/24 13:16 Blood Pressure 83/53 L 07/01/24 13:16 Pulse Oximetry 78 L 07/01/24 13:16 Temperature 36.4 C 07/01/24 13:16 Temperature Source Oral 07/01/24 13:16 Pulse 99 H 07/01/24 13:16 Respiratory Rate 24 07/01/24 13:16 Blood Pressure 83/53 L 07/01/24 13:16 Pulse Oximetry 78 L 07/01/24 13:16 Oxygen Delivery Method Room Air 07/01/24 13:16 Oxygen Flow Rate 0 07/01/24 13:16 Lab/Test Results Lab/Test Results: 07/01/24 13:22 Blood Blood Culture - Pending 07/01/24 13:22 Blood Blood Culture - Pending Laboratory Tests Range/Units 07/01/24 13:20 WBC (4.4-10.8) 10^3/uL 6.49 RBC (4.36-5.78) 10^6/uL 4.67 Hgb (13.5-17.5) g/dL 14.7 Hct (40.0-50.0) % 44.7 MCV (80-95) fL 96 H MCH (27.0-33.0) pg 31.5 MCHC (32.0-36.0) % 32.9 RDW (11.8-14.1) % 14.2 H Plt Count (130-400) 10^3/uL 165 MPV (8.0-11.0) fL 10.7 Immature Gran % % 0.3 Neutrophils % % 58.9 Lymphocytes % % 14.8 Monocytes % % 19.1 Eosinophils % % 6.3 Basophils % % 0.6 Nucleated RBC % (0.0-0.3) % 0.0 Absolute Neutrophils (1.2-6.7) 10^3/uL 3.82 Absolute Lymphocytes (1.2-3.4) 10^3/uL 0.96 L Absolute Monocytes (0.1-0.8) 10^3/uL 1.24 H Absolute Eosinophils (0.0-0.7) 10^3/uL 0.41 Absolute Basophils (0.0-0.2) 10^3/uL 0.04 VBG pH (7.31-7.41) 7.44 H VBG pCO2 (41-51) mmHg 37 L VBG pO2 mmHg 47 VBG HCO3 (23-28) mmol/L 25 VBG Total CO2 (24-29) mmol/L 22 L VBG O2 Saturation % 84 VBG Base Excess (-2-3) mmol/L 1 VBG Lactate (0.6-1.4) mmol/L 2.5 H* Medical Decision Making This dictation utilizes [id number] dictation software and may contain unedited grammatical errors. 78 year-old male presents to ED today by POV/ambulating with a chief complaint of bilateral R>L shoulder pain, got a flu/covid shot in R shoulder, also reports a fall Wednesday with R shoulder pain as well. Concern for hypoxia on arrival with SpO2 70%'s walking in to triage, known COPD. Quality described as generalized shoulder pain, no radiation to hemoptysis, fevers but does endorse sweating, endorses pain radiating to L arm and neck, denies cough/URI, denies abdominal pain, denies nausea/vomiting. Severity is described as moderate. Palliating factors include nothing specific attempted. Provoking factors include nothing specific. Patients' medical history: COPD, history of [place], history of CVA, history of cardiac stenting, hypertension, diabetes mellitus, hyperlipidemia, kidney stones, rheumatoid arthritis, tobacco use. Family and social history: Current smoker, denies recent travel or sick contacts. Pertinent exam findings / vital signs include severely diminished lungs on the right, poor air movement and wheezing on the left, increased AP diameter, hypoxic at 78% on arrival currently reliant on nasal cannula oxygen, benign abdomen, right shoulder without deformity. Differential / pathologies of concern include COPD exacerbation, hypoxic respiratory failure, right shoulder injury, ACS, pneumonia, sepsis. Diagnostic studies of: -CBC, CMP, VBG, magnesium, troponin, BNP, lipase, procalcitonin, lactate, blood cultures, EKG, CTA chest PE study. -CBC shows no leukocytosis or anemia, no left shift -VBG shows a compensated respiratory alkalosis -Mild CORINE with a creatinine of 1.4 -Serial troponins negative -BNP mildly elevated at 589 -Lipase negative -Procalcitonin 0.2, do not suspect sepsis, lactate is 2.5 -EKG without ischemic changes, sinus rhythm at 74 bpm with left axis deviation, poor R wave progression, prolonged AL interval, some PVCs, no signs of acute [place] -CTA chest shows pulmonary emboli in L lingular branches, no saddle PE Interventions of: -9mL DuoNeb, NC O2 @ [ ]L, 1gm IV magnesium over 30mins for SOB, 125mg IV solu-medrol, 650mg APAP. ED Course/Assessment/Plan: 78-year-old male presents with right shoulder pain, he states he had a fall yesterday injuring his right shoulder but also had flu and COVID shot in the same arm reports soreness, there is no deformity, he is also endorsing left neck and arm pain, I am suspicious for ACS, patient also was noted at 78% SpO2 ambulating from triage to his ED room, he is an active smoker with known COPD and cardiac history. His workup shows an elevated lactate but I do not suspect sepsis at this time, he did not improve after significant breathing treatments. CTA of the chest shows pulmonary embolism, serial troponins negative, patient consulted with hospitalist Dr. Clifton for admission for acute hypoxic respiratory failure which is accepted at 1530. Disposition of Acute Hypoxic Respiratory Failure, COPD Exacerbation, Pulmonary Embolism. Patient verbalized understanding of the plan and return to ED criteria and engaged in shared decision making. Medical Records Medical records reviewed: Yes I reviewed the patient's medical records. Imaging Data Radiologic Study: Attestation: I personally reviewed and interpreted this imaging study as follows: Imaging: CT Scan Radiologist's impression: EXAM: CT CHEST PE CTA CLINICAL HISTORY: SOB, hypoxia. TECHNIQUE: Imaging Protocol: Axial CT angiography was performed with multi-slice acquisition and multi-planar and/or 3D reconstructions. CONTRAST MATERIAL: Intravenous: Omnipaque 350 contrast volume:100 mL COMPARISON: CT CT CHEST PE CTA from 10/05/[address] CHEST WO from 08/11/2023 CR XR CHEST 2V PA LATERAL from 02/25/2024 FINDINGS: Tracheobronchial tree: Patent where visualized. No bronchiectasis. Pulmonary parenchyma: Moderately severe centrilobular emphysematous changes are present. Pulmonary fibrotic changes are seen in the lung bases. No focal consolidating infiltrates are present. Pulmonary Arteries: There are filling defects seen to branches of the left lingula consistent with pulmonary emboli. No evidence of a saddle embolus. Mediastinum and Delilah: No dominant adenopathy or fluid collection. The esophagus is unremarkable. Visualized thyroid gland: Unremarkable. Pleura: No effusion or pneumothorax. Heart: The heart is not dilated. Coronary artery calcification is present. No pericardial effusion. No evidence of right heart strain. Aorta: Thoracic aorta non-dilated. Atherosclerotic calcification is present. The timing of the bolus, the aorta is insufficiently opacified for evaluation of dissection. Upper abdomen: The lack of IV contrast in the upper abdominal organs limits evaluation. Soft tissues: Unremarkable. Bones: Within normal limits for the patient's age. IMPRESSION: 1. Pulmonary emboli seen in branches to the left lingula. No evidence of right heart strain. 2. Pulmonary emphysema and fibrosis. Lab Data Lab results reviewed: Yes I reviewed the patient's lab results. Labs: 07/01/24 14:00 Blood Blood Culture - Pending 07/01/24 13:58 Blood Blood Culture - Pending Laboratory Tests Range/Units 07/01/24 07/01/24 13:20 14:21 WBC (4.4-10.8) 10^3/uL 6.49 RBC (4.36-5.78) 10^6/uL 4.67 Hgb (13.5-17.5) g/dL 14.7 Hct (40.0-50.0) % 44.7 MCV (80-95) fL 96 H MCH (27.0-33.0) pg 31.5 MCHC (32.0-36.0) % 32.9 RDW (11.8-14.1) % 14.2 H Plt Count (130-400) 10^3/uL 165 MPV (8.0-11.0) fL 10.7 Immature Gran % % 0.3 Neutrophils % % 58.9 Lymphocytes % % 14.8 Monocytes % % 19.1 Eosinophils % % 6.3 Basophils % % 0.6 Nucleated RBC % (0.0-0.3) % 0.0 Absolute Neutrophils (1.2-6.7) 10^3/uL 3.82 Absolute Lymphocytes (1.2-3.4) 10^3/uL 0.96 L Absolute Monocytes (0.1-0.8) 10^3/uL 1.24 H Absolute Eosinophils (0.0-0.7) 10^3/uL 0.41 Absolute Basophils (0.0-0.2) 10^3/uL 0.04 VBG pH (7.31-7.41) 7.44 H VBG pCO2 (41-51) mmHg 37 L VBG pO2 mmHg 47 VBG HCO3 (23-28) mmol/L 25 VBG Total CO2 (24-29) mmol/L 22 L VBG O2 Saturation % 84 VBG Base Excess (-2-3) mmol/L 1 VBG Lactate (0.6-1.4) mmol/L 2.5 H* Sodium (136-145) mmol/L 140 Potassium (3.5-5.1) mmol/L 4.4 Chloride (98-107) mmol/L 105 Carbon Dioxide (21.0-32.0) mmol/L 24.8 Anion Gap (3-11) mmol/L 10.2 BUN (7-18) mg/dL 19 H Creatinine (0.70-1.30) mg/dL 1.4 H Est GFR (CKD-EPI 2020) (mL/min/1.73m2) 52.09 Glucose (74-106) mg/dL 152 H Calcium (8.5-10.1) mg/dL 9.0 Magnesium (1.8-2.4) mg/dL 1.9 Total Bilirubin (0.2-1.0) mg/dL 0.68 AST (15-37) U/L 23 ALT (16-63) U/L 23 Alkaline Phosphatase (46-116) U/L 85 Troponin I (<or=76) ng/L 14 12 NT-Pro-B Natriuret Pep (<300) pg/mL 589 H Total Protein (6.4-8.2) g/dL 6.3 L Albumin (3.4-5.0) g/dL 2.9 L Lipase (16-77) U/L 33 Procalcitonin ng/mL 0.2 Quality:[facility] Health Related Social Needs: Health related social needs details difficulty obtaining meds due to cost PFSH All Active Problems (Updated 07/01/24 @ 15:27 by HANNAH Bowen) Pulmonary embolism (Chronic) COPD exacerbation (Acute) Acute hypoxic respiratory failure (Acute) Chronic otitis externa of both ears (Acute) Acute serous otitis media, right ear (Acute) Acute otitis externa of right ear (Acute) Internal nasal lesion (Acute) Pulmonary fibrosis (Acute) Acute exacerbation of chronic obstructive pulmonary disease (Acute) Acute otitis externa of left ear (Acute) Hypertension (Chronic) same meds, good BP here today Ear pain, right (Acute) Impetigo (Acute) [place] (dyspnea on exertion) (Acute) Cellulitis (Acute) Epistaxis (Acute) Nasal vestibulitis (Acute) Sensorineural hearing loss, bilateral (Acute) Impacted cerumen, bilateral (Acute) Weight loss (Acute) Elevated PSA, between 10 and less than 20 ng/ml (Acute) Chronic obstructive lung disease (Chronic) pulmonary fibrosis on chest xray ongoing tobacco use add back budesonide nebs to see if we can improve cough Diabetes mellitus (Chronic 05/05/13) check A1c and creat Gastroesophageal reflux disease (Chronic) Hyperlipidemia (Chronic 05/05/13) Kidney stone (Acute 09/14/14) recurrent x3 on [place] [facility] [place]; F/U Dr. Fair Male erectile disorder (Acute 08/29/13) Palpitations (Acute 11/04/12) multiple PVCs, bradycardia (2013) [place] [place], echo normal LVEF and stress test neg ischemia) Rheumatoid arthritis (Chronic 05/05/13) [facility] [place] Smoker (Chronic) Tubular adenoma (Acute) 11/20 COLONOSCOPY: ONE TUBULOVILLOUS ADENOMA & TWO TUBULAR ADENOMAS. 05/22/13: DR. Mateusz COPELAND:TUBULAR ADENOMAS 11/13/16: Dr Jian Crump: tublular and tubulovillous adenomas Erectile dysfunction (Chronic) Lipoma (Acute) Depressive disorder (Chronic) RCA occlusion (Acute) 05[place]25/[place] [facility] [place] Bradycardia (Acute) Cigarette smoker (Acute) Fatigue (Acute) Chronic knee pain (Acute) Arthritis of knee, right (Acute) Bilateral hip joint arthritis (Acute) Degenerative lumbar spinal stenosis (Acute) Adenomatous polyps (Acute) Serrated adenoma of colon (Acute ~07/2020) Mallet deformity of left ring finger (Acute 11/30/20) with avulsion fracture Anaphylaxis due to hymenoptera venom (Acute) Cellulitis of ear (Acute) Aortic atherosclerosis (Acute) Emphysema lung (Acute) Tubular adenoma of colon (Acute) COPD with acute exacerbation (Acute) 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) Cardiomyopathy (Acute) Otitis externa, left (Acute) Medical History Pneumonia Eczema Hypoxemia Sepsis COPD (chronic obstructive pulmonary disease) BPH loc w urin obs/LUTS Myocardial infarction 2020 x2 stents CVA (cerebral vascular accident) (11/21/17) ASCVD (arteriosclerotic cardiovascular disease) (05/05/13) 2 NEW STENTS 04/22 H/O IMI; angioplasty and stent; [place] , 02/11; CVA/TIA Surgical History Stented coronary artery [place] [facility] [place] s/[place] stent of old stent-KB History of incisional hernia repair History of knee surgery RESECTION ANGIOFIBROMA;RIGHT FOOT 02/04/18 KNEE REPAIR RIGHT Hernia Repair, Incisional Excision, Lipoma (05/19/16) posterior neck Colostomy (~2006) TEMP W/ REVISION Colonoscopy - MAC (11/13/16) Colonoscopy - MAC (05/16/13) Family History Mother Essential hypertension Heart disease Stroke Father Stroke Brother Heart disease Family History Diabetes Heart disease Cancer Brother No problems noted. Brother No problems noted. Sister No problems noted. Sister Alcohol abuse Social History Smoking/Tobacco Use Status: Current every day Tobacco Type: cigarettes Tobacco: How many years used: 60 Quit status: has quit before Second Hand Exposure: Yes Smoking risk assessment performed?: Yes Alcohol Intake: former Drug use: Never Substance use type: does not use Household members: family Housing: house Communication Needs: None Do you need help understanding health information?: Rarely Pets and animals: Yes Pets and animals: cat(s) Sexually active: No Current gender identity: male What is your relationship status?: How often do you talk on the phone with friends or family?: three or more times per week How often do you get together with friends or relatives?: twice per week How often do you attend yazidism or jewish services?: decline to answer Do you belong to any clubs or organized social groups?: no Panel score (0-1 are the most socially isolated patients): 1 What type of physical activity do you participate in: walking Duration: < 15 minutes/day Frequency: 1-2 times per week Monika/Yarsanism: None Special monika needs: No Seatbelt use: sometimes Helmet use: No Drive intox or ride w/intox 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
[2024-07-01 14:01] LABS: Magnesium 1.9 mg/dL (1.8-2.4); NT-proBNP 589 pg/mL (<300)
[2024-07-01] MEDS: MAGNESIUM SULFATE 1 GM/100 ML BAG IV_INF (14:13)
[2024-07-01] MEDS: methylPREDNISolone SUCC 125 MG VIAL IVP (14:13)
[2024-07-01] MEDS: Acetaminophen 325 MG TAB 650 MG PO ×2 (14:14→20:43)
[2024-07-01] MEDS: Albuterol/Ipratropium 3 ML UPD VIAL 9 ML UPD (14:14)
[2024-07-01 14:16] LABS: Procalcitonin 0.2 ng/mL
[2024-07-01] MEDS: Normal Saline - Diluent 50 ML VIAL IJ (14:34)
[2024-07-01] MEDS: Omnipaque 350 MG/ML 100 ML BTL IJ (14:35)
[2024-07-01 14:43] LABS: Troponin I 12 ng/L (<or=76)
[2024-07-01 15:00] LABS: COVID-19 PCR Negative (Negative); Influenza A PCR Negative (Negative); Influenza B PCR Negative (Negative); RSV PCR Negative (Negative)
[2024-07-01 15:13] LABS: Source NASOPHARYNX
[2024-07-01] MEDS: Heparin in 0.45% NaCl 25,000 UNIT/250 ML BAG 15 UNIT IVINF (15:50)
[2024-07-01 15:56] LABS: PTT Activated 28.3 sec (23.6-32.8)
[2024-07-01 16:19] LABS: Bilirubin Negative (Negative); Blood Small (Negative); Clarity Clear (Clear); Glucose Negative (Negative); Ketones Negative (Negative); Leukocyte Esterase Trace (Negative); Nitrite Negative (Negative); Specific Gravity <= 1.005 (1.005-1.025); Urobilinogen 0.2 mg/dL (Up to 0.2)
--- NOTE | 2024-07-01 16:22 | W.PM.HP.N ---
Date of service: 07/01/24 Time of Service: 16:23 Assessment and Plan Assessment and plan (1) Pulmonary embolism: Status: Chronic Assessment and plan: Continue heparin drip initiated in the ED- contiue heparin drip protocol DVT/PE and labs as per protocol considering oral agent: Eliquis VS Xeralto depending on insurance coverage O2 PRN for sat 88 to 92% Telemetry (2) COPD exacerbation: Status: Acute Assessment and plan: Continue home medicine regimen PRN nebs Blood cultures pending (3) Acute hypoxic respiratory failure: Status: Acute (4) Pulmonary fibrosis: Status: Acute Assessment and plan: Continue to f/u outpatient on remicade (5) Hypertension: Status: Chronic Assessment and plan: Continue home med therapy Qualifiers: Hypertension type: essential hypertension Qualified Code(s): I10 - Essential (primary) hypertension (6) Diabetes mellitus: Status: Chronic Assessment and plan: Gluc Ac and HS with SSI and bolus home dose of insulin glargine Qualifiers: Diabetes mellitus complication status: without complication Diabetes mellitus intermediate insulin use: without intermediate use Diabetes mellitus type: type 2 Qualified Code(s): E11.9 - Type 2 diabetes mellitus without complications (7) Right shoulder pain: Status: Acute Assessment and plan: XR right shoulder Scheduled APAP (8) Acute kidney injury: Status: Resolved Assessment and plan: Most likely d/t dehydration with a Cr of 1.4 and a BUN of 19 , lactate 2.5 w/o fever or WBC IVF: LR at 80 cc/hr for 12 hours and reevaluate in AM - Last echo in showed an LVEF of 45 % (9) Discharge planning issues: Status: Acute Assessment and plan: Physical therapy consult: eval for discharge safety Will be d/c on oral anticoagulation for 3 months F/U with pulmonology Discussed with Dr. rOdaz History of Present Illness History of Present Illness Chief Complaint: Bilateral shoulder pain right > left, s/p fall shortness of breath Narrative: This 78-year-old male patient with past medical history of COPD and current tobacco abuse, myocardial infarction, CVA, cardiac stenting, hypertension, diabetes mellitus, hyperlipidemia, kidney stone, coronary artery disease presented today to the emergency department at an [facility] for evaluation of bilateral shoulder pain with right-sided pain more intense, reported flu COVID-vaccine to the right shoulder recently and fall on Wednesday onto the right shoulder. Arrival to the ED the patient was found to have a saturation of oxygen in the 70. The patient reported fever but denied diaphoresis. Patient also endorsed pain radiating to the left arm and neck. Workup in the ED included an EKG not significant for ischemia, VBG lactate of 2.5, creatinine of 1.4 with baseline around 1 with a BUN of 19, BNP was minimally elevated at 589. A CTA showed pulmonary emboli in the branches in the left lingula without evidence of right cardiac strain; pulmonary emphysema and fibrosis also seen. The hospitalist was consulted and patient admitted for hypoxic respiratory failure due to pulmonary emboli, CORINE due to dehydration. Blood cultures were drawn and pending. In the ED the patient was initiated on an heparin drip for pulmonary emboli DVT protocol and was treated with IV crystalloid. When seen in room patient denied recent change in vision, dizziness, hemoptysis, cough, nausea, vomiting, diarrhea or dysuria. He mention falling a week ago and hurting his right shoulder and having pain since then. Denies left sided arm and chest pain. The patient is guarding his RUE while moving, limitation observed on extension rotation of the right shoulder. The patient want CPR and intubation , thus is a full code. Review of Systems All systems reviewed & are unremarkable except as noted in HPI and below PFSH All Active Problems Right shoulder pain (Acute) Discharge planning issues (Acute) Pulmonary embolism (Chronic) COPD exacerbation (Acute) Acute hypoxic respiratory failure (Acute) Chronic otitis externa of both ears (Acute) Acute serous otitis media, right ear (Acute) Acute otitis externa of right ear (Acute) Internal nasal lesion (Acute) Pulmonary fibrosis (Acute) Acute exacerbation of chronic obstructive pulmonary disease (Acute) Acute otitis externa of left ear (Acute) Hypertension (Chronic) same meds, good BP here today Ear pain, right (Acute) Impetigo (Acute) [place] (dyspnea on exertion) (Acute) Cellulitis (Acute) Epistaxis (Acute) Nasal vestibulitis (Acute) Sensorineural hearing loss, bilateral (Acute) Impacted cerumen, bilateral (Acute) Weight loss (Acute) Elevated PSA, between 10 and less than 20 ng/ml (Acute) Chronic obstructive lung disease (Chronic) pulmonary fibrosis on chest xray ongoing tobacco use add back budesonide nebs to see if we can improve cough Diabetes mellitus (Chronic 05/05/13) check A1c and creat Gastroesophageal reflux disease (Chronic) Hyperlipidemia (Chronic 05/05/13) Kidney stone (Acute 09/14/14) recurrent x3 on left [facility] [place] Urology 10/12/16-[facility]; F/U Dr. Fair Male erectile disorder (Acute 08/29/13) Palpitations (Acute 11/04/12) multiple PVCs, bradycardia (2013) ([facility] [place], Dr Abraham, echo normal LVEF and stress test neg ischemia) Rheumatoid arthritis (Chronic 05/05/13) [facility] [place], Dr Leon Smoker (Chronic) Tubular adenoma (Acute) 11/20 COLONOSCOPY: ONE TUBULOVILLOUS ADENOMA & TWO TUBULAR ADENOMAS. 05/22/13: DR. Mateusz COPELAND:TUBULAR ADENOMAS 11/13/16: Dr Jian Crump: tublular and tubulovillous adenomas Erectile dysfunction (Chronic) Lipoma (Acute) Depressive disorder (Chronic) RCA occlusion (Acute) 05/25/19 [facility] [place] Bradycardia (Acute) Cigarette smoker (Acute) Fatigue (Acute) Chronic knee pain (Acute) Arthritis of knee, right (Acute) Bilateral hip joint arthritis (Acute) Degenerative lumbar spinal stenosis (Acute) Adenomatous polyps (Acute) Serrated adenoma of colon (Acute ~07/2020) Mallet deformity of left ring finger (Acute 11/30/20) with avulsion fracture Anaphylaxis due to hymenoptera venom (Acute) Cellulitis of ear (Acute) Aortic atherosclerosis (Acute) Emphysema lung (Acute) Tubular adenoma of colon (Acute) COPD with acute exacerbation (Acute) 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) Cardiomyopathy (Acute) Otitis externa, left (Acute) Medical History Pneumonia Eczema Hypoxemia Sepsis COPD (chronic obstructive pulmonary disease) BPH loc w urin obs/LUTS Myocardial infarction 2020 x2 stents CVA (cerebral vascular accident) (11/21/17) ASCVD (arteriosclerotic cardiovascular disease) (05/05/13) 2 NEW STENTS 04/22 H/O IMI; angioplasty and stent; [place] 12, 02/11; CVA/TIA Surgical History Stented coronary artery 05/25/19 [facility] [place]; s/p stent of old stent-KB History of incisional hernia repair History of knee surgery RESECTION ANGIOFIBROMA;RIGHT FOOT 02/04/18 KNEE REPAIR RIGHT Hernia Repair, Incisional Excision, Lipoma (05/19/16) posterior neck Colostomy (~2006) TEMP W/ REVISION Colonoscopy - MAC (11/13/16) Colonoscopy - MAC (05/16/13) Family History Mother Essential hypertension Heart disease Stroke Father Stroke Brother Heart disease Family History Diabetes Heart disease Cancer Brother No problems noted. Brother No problems noted. Sister No problems noted. Sister Alcohol abuse Social History Smoking/Tobacco Use Status: Current every day Tobacco Type: cigarettes Tobacco: How many years used: 60 Quit status: has quit before Second Hand Exposure: Yes Smoking risk assessment performed?: Yes Alcohol Intake: former Drug use: Never Substance use type: does not use Household members: family Housing: house Communication Needs: None Do you need help understanding health information?: Rarely Pets and animals: Yes Pets and animals: cat(s) Sexually active: No Current gender identity: male What is your relationship status?: How often do you talk on the phone with friends or family?: three or more times per week How often do you get together with friends or relatives?: twice per week How often do you attend samaritan or taoist services?: decline to answer Do you belong to any clubs or organized social groups?: no Panel score (0-1 are the most socially isolated patients): 1 What type of physical activity do you participate in: walking Duration: < 15 minutes/day Frequency: 1-2 times per week Monika/Synagogue: None Special monika needs: No Seatbelt use: sometimes Helmet use: No Drive intox or ride w/intox tram driver: No Do you feel safe at home: Yes Do you feel safe in your relationship?: Yes Additional Social history: Lives with son Meds Allergies and Home Medications Allergies Allergy/AdvReac Type Severity Reaction Status Date / Time venom-honey bee (bee venom Allergy Severe ANAPHYLAXSI Verified 07/01/24 13:21 (honey bee)) S Sulfa (Sulfonamide Allergy Unknown unknown Verified 07/01/24 13:21 Antibiotics) leflunomide (From Arava) AdvReac Intermediate DIARRHEA Verified 07/01/24 13:21 metformin AdvReac Intermediate diarrhea Verified 07/01/24 13:21 Home Medications ?Medication ?Instructions ?Recorded ?Confirmed ?Type inhalational spacing device (Space ##1 05/27/15 07/01/24 History Chamber Plus) infliximab 100 mg intravenous 1,000 mg IV .[id number] 05/31/15 07/01/24 History solution (Remicade) acetaminophen 650 mg 650 mg PO Q8H PRN Pain ##20 04/30/17 07/01/24 Rx tablet,extended release epinephrine 0.3 mg/0.3 mL 0.3 mg (0.3 mL) IM ONCE #2 ea 03/12/21 07/01/24 Rx injection, auto-injector aspirin 81 mg chewable tablet 81 mg PO DAILY 05/27/21 07/01/24 History amlodipine 5 mg tablet 5 mg PO BID #180 tabs 03/18/23 07/01/24 Rx lorazepam 1 mg tablet (Ativan) 1 mg PO DAILY PRN anxiety #2 tabs 05/14/23 07/01/24 Rx blood-glucose meter (FreeStyle #1 ea 06/01/23 07/01/24 Rx Lite Meter kit) nitroglycerin 0.4 mg sublingual 0.4 mg sublingual PRN #25 tab-caps 06/23/23 07/01/24 Rx tablet (Nitrostat) blood sugar diagnostic (Contour #300 ea 07/27/23 07/01/24 Rx Test Strips) dulaglutide 0.75 mg/0.5 mL 0.75 mg (0.5 mL) subcut QWEEK #6 mL 09/22/23 07/01/24 Rx subcutaneous pen injector (Trulicity) finasteride 5 mg tablet 5 mg PO DAILY #90 tabs 09/22/23 07/01/24 Rx fluticasone propionate 50 2 spray NS DAILY #1 g 09/22/23 07/01/24 Rx mcg/actuation nasal spray,suspension insulin glargine 100 unit/mL (3 47 unit (0.47 mL) subcut HS #45 mL 01/10/24 10/19/24 Rx mL) subcutaneous pen lancets 28 gauge (TRUEplus Lancets) #100 ea 09/25/23 07/01/24 Rx pantoprazole 40 mg tablet,delayed 40 mg PO DAILY #90 tabs 10/16/23 07/01/24 Rx release albuterol sulfate 90 mcg/actuation 2 inh inhalation Q6H PRN 12/27/23 07/01/24 Rx aerosol inhaler (Ventolin HFA) bronchospasm #8.5 grams bupropion HCl 150 mg tablet,12 hr 150 mg PO BID #180 tabs 02/28/24 07/01/24 Rx sustained-release loratadine 10 mg capsule 10 mg PO DAILY PRN 03/06/24 07/01/24 History umeclidinium 62.5 mcg-vilanterol 1 inh inhalation DAILY #60 ea 03/06/24 07/01/24 Rx 25 mcg/actuation powdr for inhalation (Anoro Ellipta) clopidogrel 75 mg tablet (Plavix) 75 mg PO DAILY #90 tabs 04/11/24 07/01/24 Rx docusate sodium 100 mg capsule 100 mg PO DAILY #90 caps 04/11/24 07/01/24 Rx (Colace) tamsulosin 0.4 mg capsule 0.8 mg (2 x 0.4 mg) PO DAILY #180 04/15/24 07/01/24 Rx caps sildenafil 100 mg tablet 100 mg PO DAILY PRN sexual 05/02/24 07/01/24 Rx activity #5 tabs mupirocin 2 % topical ointment 1 applic topical TID #50 grams 05/10/24 07/01/24 Rx atorvastatin 80 mg tablet 80 mg PO QHS #90 tabs 05/23/24 07/01/24 Rx ezetimibe 10 mg tablet 10 mg PO DAILY #90 tabs 05/23/24 07/01/24 Rx gabapentin 300 mg capsule See Rx Instructions .Route 06/03/24 07/01/24 Rx .COMPLEX #90 caps losartan 100 mg tablet 100 mg PO DAILY #90 tabs 06/29/24 07/01/24 Rx pen needle, diabetic 33 gauge x #100 ea 06/29/24 07/01/24 Rx 5/32 (Advocate Pen Needle) Results Labs 07/01/24 13:20 07/01/24 13:20 Labs: Laboratory Results - last 24 hr 07/01/24 07/01/24 07/01/24 13:20 13:26 13:49 WBC 6.49 RBC 4.67 Hgb 14.7 Hct 44.7 MCV 96 H MCH 31.5 MCHC 32.9 RDW 14.2 H Plt Count 165 MPV 10.7 Immature Gran % 0.3 Neutrophils % 58.9 Lymphocytes % 14.8 Monocytes % 19.1 Eosinophils % 6.3 Basophils % 0.6 Nucleated RBC % 0.0 Absolute Neutrophils 3.82 Absolute Lymphocytes 0.96 L Absolute Monocytes 1.24 H Absolute Eosinophils 0.41 Absolute Basophils 0.04 APTT 28.3 VBG pH 7.44 H VBG pCO2 37 L VBG pO2 47 VBG HCO3 25 VBG Total CO2 22 L VBG O2 Saturation 84 VBG Base Excess 1 VBG Lactate 2.5 H* Sodium 140 Potassium 4.4 Chloride 105 Carbon Dioxide 24.8 Anion Gap 10.2 BUN 19 H Creatinine 1.4 H Est GFR (CKD-EPI 2020) 52.09 Glucose 152 H Calcium 9.0 Magnesium 1.9 Total Bilirubin 0.68 AST 23 ALT 23 Alkaline Phosphatase 85 Troponin I 14 NT-Pro-B Natriuret Pep 589 H Total Protein 6.3 L Albumin 2.9 L Lipase 33 Procalcitonin 0.2 Urine Color Urine Clarity Urine pH Ur Specific [place] Urine Protein Urine Ketones Urine Blood Urine Nitrite Urine Bilirubin Urine Urobilinogen Ur Leukocyte Esterase Urine Glucose COVID-19 Source NASOPHARYNX SARS-CoV-2 (PCR) Negative Influenza Type A (PCR) Negative Influenza Type B (PCR) Negative RSV (PCR) Negative 07/01/24 07/01/24 14:21 16:14 WBC RBC Hgb Hct MCV MCH MCHC RDW Plt Count MPV Immature Gran % Neutrophils % Lymphocytes % Monocytes % Eosinophils % Basophils % Nucleated RBC % Absolute Neutrophils Absolute Lymphocytes Absolute Monocytes Absolute Eosinophils Absolute Basophils APTT VBG pH VBG pCO2 VBG pO2 VBG HCO3 VBG Total CO2 VBG O2 Saturation VBG Base Excess VBG Lactate Sodium Potassium Chloride Carbon Dioxide Anion Gap BUN Creatinine Est GFR (CKD-EPI 2020) Glucose Calcium Magnesium Total Bilirubin AST ALT Alkaline Phosphatase Troponin I 12 NT-Pro-B Natriuret Pep Total Protein Albumin Lipase Procalcitonin Urine Color Yellow Urine Clarity Clear Urine pH 6.0 Ur Specific [place] <= 1.005 Urine Protein Negative Urine Ketones Negative Urine Blood Small H Urine Nitrite Negative Urine Bilirubin Negative Urine Urobilinogen 0.2 Ur Leukocyte Esterase Trace H Urine Glucose Negative COVID-19 Source SARS-CoV-2 (PCR) Influenza Type A (PCR) Influenza Type B (PCR) RSV (PCR) Last Vital Signs Temp 36.1 C L 07/01/24 15:42 Pulse 71 07/01/24 15:42 Resp 28 H 07/01/24 15:42 BP 146/66 H 07/01/24 15:01 Pulse Ox 94 07/01/24 15:42 Time Spent Time spent with Patient: >75 minutes Time was spent: preparing to see the patient(eg.review tests), obtaining and/or reviewing separately otained hiistory, ordering medications,tests, procedures, referring, communicating with other health ocular care technician, indepentently interpreting results, counseling the patient and care coordination
[2024-07-01 16:29] LABS: Bacteria Negative HPF (Negative); C & S Indicated? No; Crystals Negative HPF (Negative); Epithelial Cells Rare HPF (Negative); Mucus Trace (Negative)
--- NOTE | 2024-07-01 17:00 | W.PC.ACHO ---
Registration Status: Primary Language: Preferred Language: ED Information & Data Chief Complaint SOB 07/01/24 13:56 Triage Note had fall wednesday, Visibly SOB 07/01/24 13:16 in trg--right shoulder pain patient reports getting vax yesterday Medical / Surgical History (Last Reviewed 06/08/24 @ 12:47 by Torres Loco MD) Pneumonia Eczema Hypoxemia Sepsis COPD (chronic obstructive pulmonary disease) BPH loc w urin obs/LUTS Myocardial infarction CVA (cerebral vascular accident) (11/21/17) ASCVD (arteriosclerotic cardiovascular disease) (05/05/13) (Last Reviewed 06/08/24 @ 12:47 by Torres Loco MD) Stented coronary artery History of incisional hernia repair History of knee surgery RESECTION KNEE REPAIR Hernia Repair, Incisional Excision, Lipoma (05/19/16) Colostomy (~2006) Colonoscopy - MAC (11/13/16) Colonoscopy - MAC (05/16/13) Most Recent Vital Signs Temperature 36.1 C L 07/01/24 15:42 Temperature Source Oral 07/01/24 15:42 Pulse 71 07/01/24 15:42 Pulse 66 07/01/24 15:40 Respiratory Rate 28 H 07/01/24 15:42 Respiratory Effort Short of Breath, Accessory Muscle Use, Incrsd Work of Breathing 07/01/24 13:20 Blood Pressure 146/66 H 07/01/24 15:01 Blood Pressure Mean 93 07/01/24 15:01 Pulse Oximetry 94 07/01/24 15:42 Oxygen Delivery Method Nasal Cannula 07/01/24 15:42 Oxygen Flow Rate 2 07/01/24 15:42 Pain Level 8 07/01/24 15:42 Comment 2l 07/01/24 14:00 Allergies venom-honey bee (bee venom (honey bee)) Allergy (Severe, Verified 07/01/24 13:21) ANAPHYLAXSIS Sulfa (Sulfonamide Antibiotics) Allergy (Unknown, Verified 07/01/24 13:21) unknown leflunomide (From Arava) Adverse Reaction (Intermediate, Verified 07/01/24 13:21) DIARRHEA metformin Adverse Reaction (Intermediate, Verified 07/01/24 13:21) diarrhea Precautions Isolation PUI 07/01/24 13:20 Active Medications Generic Name Dose Route Start Last Admin Trade Name Freq PRN Reason Stop Dose Admin Heparin Sodium/Sodium Chloride 25,000 unit in 250 mls @ 0 mls/hr 07/01/24 15:30 07/01/24 15:50 IVINF 1,500 units/hr INFUSION JOSE CARLOS 15 mls/hr Administration Protocol Per Protocol Iohexol 100 ml 07/01/24 14:45 07/01/24 14:35 Omnipaque 350 Mg/Ml 100 Ml Btl IJ 07/31/24 23:59 100 ml DIRECTED JOSE CARLOS Administration Sodium Chloride 50 ml 07/01/24 14:45 07/01/24 14:34 Normal Saline - Diluent 50 Ml Vial IJ 50 ml .FOR DI USE JOSE CARLOS Administration IV IV Catheter Type [Right Peripheral IV Antecubital] IV Catheter Gauge [Right 18 Antecubital] Diagnostics 07/01/24 07/01/24 07/01/24 Range/Units 16:22 16:14 14:21 WBC (4.4-10.8) 10^3/uL RBC (4.36-5.78) 10^6/uL Hgb (13.5-17.5) g/dL Hct (40.0-50.0) % MCV (80-95) fL MCH (27.0-33.0) pg MCHC (32.0-36.0) % RDW (11.8-14.1) % Plt Count (130-400) 10^3/uL MPV (8.0-11.0) fL Immature Gran % % Neutrophils % % Lymphocytes % % Monocytes % % Eosinophils % % Basophils % % Nucleated RBC % (0.0-0.3) % Absolute Neutrophils (1.2-6.7) 10^3/uL Absolute Lymphocytes (1.2-3.4) 10^3/uL Absolute Monocytes (0.1-0.8) 10^3/uL Absolute Eosinophils (0.0-0.7) 10^3/uL Absolute Basophils (0.0-0.2) 10^3/uL APTT (23.6-32.8) sec VBG pH (7.31-7.41) VBG pCO2 (41-51) mmHg VBG pO2 mmHg VBG HCO3 (23-28) mmol/L VBG Total CO2 (24-29) mmol/L VBG O2 Saturation % VBG Base Excess (-2-3) mmol/L VBG Lactate (0.6-1.4) mmol/L Sodium (136-145) mmol/L Potassium (3.5-5.1) mmol/L Chloride (98-107) mmol/L Carbon Dioxide (21.0-32.0) mmol/L Anion Gap (3-11) mmol/L BUN (7-18) mg/dL Creatinine (0.70-1.30) mg/dL Est GFR (CKD-EPI 2020) (mL/min/1.73m2) Glucose (74-106) mg/dL Calcium (8.5-10.1) mg/dL Magnesium (1.8-2.4) mg/dL Total Bilirubin (0.2-1.0) mg/dL AST (15-37) U/L ALT (16-63) U/L Alkaline Phosphatase (46-116) U/L Troponin I Pending 12 (<or=76) ng/L NT-Pro-B Natriuret Pep (<300) pg/mL Total Protein (6.4-8.2) g/dL Albumin (3.4-5.0) g/dL Lipase (16-77) U/L Procalcitonin ng/mL Urine Color Yellow (Yellow) Urine Clarity Clear (Clear) Urine pH 6.0 (5-8) Ur Specific [place] <= 1.005 (1.005-1.025) Urine Protein Negative (Neg-Trace) mg/dL Urine Ketones Negative (Negative) mg/dL Urine Blood Small H (Negative) Urine Nitrite Negative (Negative) Urine Bilirubin Negative (Negative) Urine Urobilinogen 0.2 (Up to 0.2) mg/dL Ur Leukocyte Esterase Trace H (Negative) Urine RBC 3-5 H (0-2) HPF Urine WBC 5-10 (0-5) HPF Ur Epithelial Cells Rare (Negative) HPF Urine Crystals Negative (Negative) HPF Urine Bacteria Negative (Negative) HPF Urine Mucus Trace (Negative) Ur Culture Indicated? No Urine Glucose Negative (Negative) mg/dL COVID-19 Source SARS-CoV-2 (PCR) (Negative) Influenza Type A (PCR) (Negative) Influenza Type B (PCR) (Negative) RSV (PCR) (Negative) 07/01/24 07/01/24 07/01/24 Range/Units 13:49 13:26 13:20 WBC 6.49 (4.4-10.8) 10^3/uL RBC 4.67 (4.36-5.78) 10^6/uL Hgb 14.7 (13.5-17.5) g/dL Hct 44.7 (40.0-50.0) % MCV 96 H (80-95) fL MCH 31.5 (27.0-33.0) pg MCHC 32.9 (32.0-36.0) % RDW 14.2 H (11.8-14.1) % Plt Count 165 (130-400) 10^3/uL MPV 10.7 (8.0-11.0) fL Immature Gran % 0.3 % Neutrophils % 58.9 % Lymphocytes % 14.8 % Monocytes % 19.1 % Eosinophils % 6.3 % Basophils % 0.6 % Nucleated RBC % 0.0 (0.0-0.3) % Absolute Neutrophils 3.82 (1.2-6.7) 10^3/uL Absolute Lymphocytes 0.96 L (1.2-3.4) 10^3/uL Absolute Monocytes 1.24 H (0.1-0.8) 10^3/uL Absolute Eosinophils 0.41 (0.0-0.7) 10^3/uL Absolute Basophils 0.04 (0.0-0.2) 10^3/uL APTT 28.3 (23.6-32.8) sec VBG pH 7.44 H (7.31-7.41) VBG pCO2 37 L (41-51) mmHg VBG pO2 47 mmHg VBG HCO3 25 (23-28) mmol/L VBG Total CO2 22 L (24-29) mmol/L VBG O2 Saturation 84 % VBG Base Excess 1 (-2-3) mmol/L VBG Lactate 2.5 H* (0.6-1.4) mmol/L Sodium 140 (136-145) mmol/L Potassium 4.4 (3.5-5.1) mmol/L Chloride 105 (98-107) mmol/L Carbon Dioxide 24.8 (21.0-32.0) mmol/L Anion Gap 10.2 (3-11) mmol/L BUN 19 H (7-18) mg/dL Creatinine 1.4 H (0.70-1.30) mg/dL Est GFR (CKD-EPI 2020) 52.09 (mL/min/1.73m2) Glucose 152 H (74-106) mg/dL Calcium 9.0 (8.5-10.1) mg/dL Magnesium 1.9 (1.8-2.4) mg/dL Total Bilirubin 0.68 (0.2-1.0) mg/dL AST 23 (15-37) U/L ALT 23 (16-63) U/L Alkaline Phosphatase 85 (46-116) U/L Troponin I 14 (<or=76) ng/L NT-Pro-B Natriuret Pep 589 H (<300) pg/mL Total Protein 6.3 L (6.4-8.2) g/dL Albumin 2.9 L (3.4-5.0) g/dL Lipase 33 (16-77) U/L Procalcitonin 0.2 ng/mL Urine Color (Yellow) Urine Clarity (Clear) Urine pH (5-8) Ur Specific [place] (1.005-1.025) Urine Protein (Neg-Trace) mg/dL Urine Ketones (Negative) mg/dL Urine Blood (Negative) Urine Nitrite (Negative) Urine Bilirubin (Negative) Urine Urobilinogen (Up to 0.2) mg/dL Ur Leukocyte Esterase (Negative) Urine RBC (0-2) HPF Urine WBC (0-5) HPF Ur Epithelial Cells (Negative) HPF Urine Crystals (Negative) HPF Urine Bacteria (Negative) HPF Urine Mucus (Negative) Ur Culture Indicated? Urine Glucose (Negative) mg/dL COVID-19 Source NASOPHARYNX SARS-CoV-2 (PCR) Negative (Negative) Influenza Type A (PCR) Negative (Negative) Influenza Type B (PCR) Negative (Negative) RSV (PCR) Negative (Negative) 07/01/24 14:00 Blood Culture - Pending Blood 07/01/24 13:58 Blood Culture - Pending Blood Intake and Output - 24 Hour Total 07/01/24 13:07 thru 07/01/24 15:55 Intake Total 100 Balance 100 Weight 83.2 kg Intake: IV 100 Falls Risk Assessment History of Falls Previous History 07/01/24 14:08 Contributing Factors Unstable,Incontinence, 07/01/24 14:08 Medications Ambulatory Aids Uses ambulatory device 07/01/24 14:08 Tubes/Lines None 07/01/24 14:08 Gait Evaluation W/no contributing factors 07/01/24 14:08 Cognition No cognitive impairment 07/01/24 14:08 Fall Total Score 49 07/01/24 14:08 Level of Risk Moderate Risk 07/01/24 14:08 v v v v v v v v v Sending and/or Receiving Nurses: Please use comment section below to note any information pertinent to the patient hand-off not included above. Information / Comments: Flu and covid vaccine yesterday, and prescribed injection (06/30). Last night - got OOB to go to the bathroom and fell, hit right shoulder. Went back to bed. On blood thinners. Hx of COPD (no oxygen use at home), breathing hard. Diminished right sided lung sounds. BPs low 90's in triage, fine in ED. Holding his home medications d/t low BPS at home. Tachypnic and desats with any activity. On 2L NC. 3 nebs, APAP for pain (8 to 6 pain level), IV magnesium for resp symptoms. 16 oz water PO. NEW PE - heparin gtt - 6600 bolus. Next PTT due at 2150. Blood cultures pending. 3rd trop not drawn yet. Hx of CAD (multiple stents). Uses cane, came in with wheelchair. Report received from: Veronika Garcia
[2024-07-01 17:42] LABS: Troponin I 12 ng/L (<or=76)
--- NOTE | 2024-07-01 18:52 | DI.RAD_ITS ---
Exam(s) XR SHOULDER RT COMPLETE 2+V EXAM: XR SHOULDER RT COMPLETE 2+V CLINICAL HISTORY: limited ext rotation s/p fall. TECHNIQUE: 2D digital imaging was performed of the right shoulder. Four images were obtained. AP, Grashey and Y views were obtained. COMPARISON: CR LEFT SHOULDER COMPLETE from 04/30/2017 FINDINGS: BONES: No acute fracture is present. No bony destructive lesion is seen. JOINTS: No dislocation present. There are degenerative changes seen at the acromioclavicular and regina ohumeral joints. SOFT TISSUE: Normal. IMPRESSION: No acute fracture or dislocation. DATA REPOSITORY: RADIATION DOSE DELIVERED:
[2024-07-01 19:11] LABS: Lactate 1.4 mmol/L (0.6-1.4)
[2024-07-01] MEDS: Gabapentin 300 MG CAP PO (20:43)
[2024-07-01] MEDS: buPROPion-CR 150 MG TABCR PO (20:43)
[2024-07-01] MEDS: Atorvastatin 40 MG TAB 80 MG PO (20:43)
--- NOTE | 2024-07-01 20:56 | DI.VRAD_ITS ---
PROCEDURE INFORMATION: Exam: XR Right Shoulder Exam date and time: 07/01/2024 6:46 PM Age: 78 years old Clinical indication: Pain; Shoulder; Right; Patient HX: Limited ext rotation S/P fall TECHNIQUE: Imaging protocol: Radiologic exam of the right shoulder. Views: 2 or more views. COMPARISON: CT CHEST PE CTA 07/01/2024 2:37 PM FINDINGS: Bones/joints: Normal. Soft tissues: Normal. IMPRESSION: No evidence for fracture. Dictated and Authenticated by: Shalonda Grant MD. Ordering:JULIETTE Desir MD
[2024-07-01] MEDS: Insulin Glargine 300 UNITS/3 ML PEN 47 UNITS SC (21:54)
[2024-07-01] MEDS: Mupirocin 2% Oint. 22 GM TUBE TP (21:55)
[2024-07-02] VITALS (9 sets, daily range): BP systolic 149–176; BP diastolic 48–91; PULSE 43–56; RESP 18–19; TEMP 36–37; O2SAT 92–97
[2024-07-02] LABS: PTT Activated 105.3 sec (23.6-32.8)
[2024-07-02] MEDS: Acetaminophen 325 MG TAB 650 MG PO ×4 (00:59→20:10)
--- NOTE | 2024-07-02 05:20 | RESPIRATORY ---
RT spoke with patient for TAE diagnosis. Pt. mentioned that he previously had a home NIV machine provided through [facility] however, machine has been taken back months ago due to noncompliance use. Also, advises he is no longer O2 user at baseline.
[2024-07-02] MEDS: Heparin in 0.45% NaCl 25,000 UNIT/250 ML BAG 12.5 UNIT IVINF (06:08)
[2024-07-02 07:37] LABS: Abs Immature Grans 0.03 10^3/uL (0.0-0.06); Absolute Basophil Count 0.02 10^3/uL (0.0-0.2); Absolute Eosinophil Count 0.01 10^3/uL (0.0-0.7); Absolute Lymphocyte Count 1.13 10^3/uL (1.2-3.4); Absolute Monocyte Count 0.91 10^3/uL (0.1-0.8); Absolute Neutrophil Count 4.85 10^3/uL (1.2-6.7); Basophils % 0.3 %; Eosinophils % 0.1 %; HCT 44.5 % (40.0-50.0); HGB 14.9 g/dL (13.5-17.5); Immature Grans % 0.4 %; Lymphocytes % 16.3 %; MCH 31.7 pg (27.0-33.0); MCHC 33.5 % (32.0-36.0); MCV 95 fL (80-95); MPV 10.7 fL (8.0-11.0); Monocytes % 13.1 %; Neutrophils % 69.8 %; Platelet Count 164 10^3/uL (130-400); RDW 13.7 % (11.8-14.1); RDW-SD 48.7 fL; WBC 6.95 10^3/uL (4.4-10.8)
[2024-07-02 07:46] LABS: BUN 23 mg/dL (7-18); Calcium 9.3 mg/dL (8.5-10.1); Chloride 108 mmol/L (98-107); Glucose 125 mg/dL (74-106); Magnesium 2.4 mg/dL (1.8-2.4); Potassium 4.5 mmol/L (3.5-5.1); Sodium 143 mmol/L (136-145)
[2024-07-02 08:23] LABS: PTT Activated 96.7 sec (23.6-32.8)
[2024-07-02] MEDS: Clopidogrel 75 MG TAB PO (09:11)
[2024-07-02] MEDS: Finasteride 5 MG TAB PO (09:11)
[2024-07-02] MEDS: Aspirin 81 MG CHEW PO (09:11)
[2024-07-02] MEDS: Nicotine 14 MG/24 HR PATCH TD (09:11)
[2024-07-02] MEDS: buPROPion-CR 150 MG TABCR PO ×2 (09:11→20:10)
[2024-07-02] MEDS: Gabapentin 300 MG CAP PO ×3 (09:11→20:10)
[2024-07-02] MEDS: Pantoprazole 40 MG TABCR PO (09:11)
[2024-07-02] MEDS: Ezetimibe 10 MG TAB PO (09:11)
[2024-07-02] MEDS: Losartan 50 MG TAB 100 MG PO (09:11)
[2024-07-02] MEDS: Docusate Sodium 100 MG CAP PO (09:12)
[2024-07-02] MEDS: Tamsulosin 0.4 MG CAPCR 0.8 MG PO (09:12)
[2024-07-02] MEDS: Normal Saline Flush 10 ML SYR IVP (09:12)
[2024-07-02] MEDS: Tiotropium/Olodaterol 10 PUFF INHALER 2 PUFF IH (09:27)
--- NOTE | 2024-07-02 09:39 | INITIAL_ITS ---
Date of service: 07/02/24 Time of Service: 09:39 Care Management Initial Assmt Initial Assessment Reason for Hospitalization: pulmonary embolism Functional Status/Living Situation Patient Presentation: Arcenio was sitting up in a chair when CM met with him. He was open and friendly and agreeable to conversation. Arcenio lives in a mobile home in [facility]. His son lives with him and helps to pay some of the bills. Arcenio also has 3 daughters who live locally and are supportive. He also has many grandchildren and great grandchildren in the area. 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 Arcenio uses a cane for ambulatory assistance and continues to drive. He does not receive any community services although he does have [facility] Financial Assistance 100. Arcenio was admitted with a pulmonary embolus. He required oxygen when he first arrived but is now saturating in the mid to upper 90s on room air. Arcenio informed CM that he was supposed to have home oxygen but was unable to afford it. He stated that The Pulmonology Department was helping him with paperwork to hopefully qualify for assistance with the cost. CM will follow up with Pulmonology. Town of Residence: [place] Resides with: Child (son lives with him) Significant Other/Family: Local Employment Status: Retired Instrumental Activities of Daily Living (ADLs): Independent Medications Medication Management: No Issues/Barriers identified Physical Functioning/Mobility Assistive Device: cane Advance Directives Advance Directives: Do you have an Advance Directive: Y 09/25/22 11:57 AD On File at [facility]: Y 09/25/22 11:57 Date Asked 02/28/24 03/21/24 16:09 AD Date Reviewed 07/01/24 07/01/24 17:13 COLST On File at [facility] COLST Date Scanned Code Status Resuscitation Status Full Code Portal Pt does not currently have a portal and education provided: Yes Insurance Coverage/Financial Issues Insurance: Medicare Financial Assist 100 Care Team Visit Care Team Role Provider Type Mike Burns MD Primary Care Provider [facility] STAFF PHYSICIAN Sonia Padgett RDN, CDCES Other Providers PROPERTY MANAGER Candi Brown Other Providers PROPERTY MANAGER Gualberto Fuller RDN Other Providers PROPERTY MANAGER HANNAH Bowen Emergency Provider PHYSICIANS TABLE RUNNER Anton Ordaz DO Admit Provider MD KIM STAFF PHYSICIAN Attending Provider Discharge Potential Discharge Needs: PCP F/U Appt Anticipated Barriers to Discharge: None Identified Patient/Family Education Needs: Review discharge instructions, discuss Ask Me Three Transportation: Private vehicle Plan: Anticipate Lawrence will be discharged home, possibly with new home health services, when medically cleared. He will follow up with his community providers and plan of care and transport with family. CM will continue to support discharge planning needs and concerns. PFSH All Active Problems Right shoulder pain (Acute) Discharge planning issues (Acute) Pulmonary embolism (Chronic) COPD exacerbation (Acute) Acute hypoxic respiratory failure (Acute) Chronic otitis externa of both ears (Acute) Acute serous otitis media, right ear (Acute) Acute otitis externa of right ear (Acute) Internal nasal lesion (Acute) Pulmonary fibrosis (Acute) Acute exacerbation of chronic obstructive pulmonary disease (Acute) Acute otitis externa of left ear (Acute) Hypertension (Chronic) same meds, good BP here today Ear pain, right (Acute) Impetigo (Acute) [place] (dyspnea on exertion) (Acute) Cellulitis (Acute) Epistaxis (Acute) Nasal vestibulitis (Acute) Sensorineural hearing loss, bilateral (Acute) Impacted cerumen, bilateral (Acute) Weight loss (Acute) Elevated PSA, between 10 and less than 20 ng/ml (Acute) Chronic obstructive lung disease (Chronic) pulmonary fibrosis on chest xray ongoing tobacco use add back budesonide nebs to see if we can improve cough Diabetes mellitus (Chronic 05/05/13) check A1c and creat Gastroesophageal reflux disease (Chronic) Hyperlipidemia (Chronic 05/05/13) Kidney stone (Acute 09/14/14) recurrent x3 on left [facility] [place] [facility] 10/12/16-JULIO; F/U Dr. Fair Male erectile disorder (Acute 08/29/13) Palpitations (Acute 11/04/12) multiple PVCs, bradycardia (2013) ([facility] [place], Dr Abraham, echo normal LVEF and stress test neg ischemia) Rheumatoid arthritis (Chronic 05/05/13) [facility] [place] Leon Smoker (Chronic) Tubular adenoma (Acute) 11/20 COLONOSCOPY: ONE TUBULOVILLOUS ADENOMA & TWO TUBULAR ADENOMAS. 05/22/13: DR. Mateusz COPELAND:TUBULAR ADENOMAS 11/13/16: Dr Jian Crump: tublular and tubulovillous adenomas Erectile dysfunction (Chronic) Lipoma (Acute) Depressive disorder (Chronic) RCA occlusion (Acute) 05/25/19 [facility] [place] Bradycardia (Acute) Cigarette smoker (Acute) Fatigue (Acute) Chronic knee pain (Acute) Arthritis of knee, right (Acute) Bilateral hip joint arthritis (Acute) Degenerative lumbar spinal stenosis (Acute) Adenomatous polyps (Acute) Serrated adenoma of colon (Acute ~07/2020) Mallet deformity of left ring finger (Acute 11/30/20) with avulsion fracture Anaphylaxis due to hymenoptera venom (Acute) Cellulitis of ear (Acute) Aortic atherosclerosis (Acute) Emphysema lung (Acute) Tubular adenoma of colon (Acute) COPD with acute exacerbation (Acute) 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) Cardiomyopathy (Acute) Otitis externa, left (Acute) Medical History Pneumonia Eczema Hypoxemia Sepsis COPD (chronic obstructive pulmonary disease) BPH loc w urin obs/LUTS Myocardial infarction 2020 x2 stents CVA (cerebral vascular accident) (11/21/17) ASCVD (arteriosclerotic cardiovascular disease) (05/05/13) 2 NEW STENTS 04/22 H/O IMI; angioplasty and stent; [place] , 02/11; CVA/TIA Surgical History Stented coronary artery 05/25/19 [facility] [place]; s/p stent of old stent-KB History of incisional hernia repair History of knee surgery RESECTION ANGIOFIBROMA;RIGHT FOOT 02/04/18 KNEE REPAIR RIGHT Hernia Repair, Incisional Excision, Lipoma (05/19/16) posterior neck Colostomy (~2006) TEMP W/ REVISION Colonoscopy - MAC (11/13/16) Colonoscopy - MAC (05/16/13) Family History Mother Essential hypertension Heart disease Stroke Father Stroke Brother Heart disease Family History Diabetes Heart disease Cancer Brother No problems noted. Brother No problems noted. Sister No problems noted. Sister Alcohol abuse Social History Smoking/Tobacco Use Status: Current every day Tobacco Type: cigarettes Tobacco: How many years used: 60 Quit status: has quit before Second Hand Exposure: Yes Smoking risk assessment performed?: Yes Alcohol Intake: former Drug use: Never Substance use type: does not use Household members: family Housing: house Communication Needs: None Do you need help understanding health information?: Rarely Pets and animals: Yes Pets and animals: cat(s) Sexually active: No Current gender identity: male What is your relationship status?: How often do you talk on the phone with friends or family?: three or more times per week How often do you get together with friends or relatives?: twice per week How often do you attend latter-day or roman catholic services?: decline to answer Do you belong to any clubs or organized social groups?: no Panel score (0-1 are the most socially isolated patients): 1 What type of physical activity do you participate in: walking Duration: < 15 minutes/day Frequency: 1-2 times per week Monika/Pentecostal: None Special monika needs: No Seatbelt use: sometimes Helmet use: No Drive intox or ride w/intox road train driver: No Do you feel safe at home: Yes Do you feel safe in your relationship?: Yes Additional Social history: Lives with son SDDENICE(Care Management) Screening Will the Patient Participate in the Screening?: Yes Do you worry about having a steady place to live?: no In the past 12 months, have you had to go without electric, gas, oil or water in your home?: no Have you or anyone in your house had to go without enough food to eat?: no Has lack of transportation kept you from medical appointments or from doing things needed for daily living?: no Has anyone in your support network made you feel unsafe for any reason?: no
--- NOTE | 2024-07-02 14:02 | PGE_ITS ---
Date of Service Date of service: 07/02/24 Time of Service: 14:02 Assessment and Plan Assessment and plan (1) Pulmonary embolism: Status: Chronic Assessment and plan: Continue heparin drip per protocol DVT/PE and labs as per protocol considering oral agent: Coumadin secondary to financial constraints O2 PRN for sat 88 to 92, oxygenating well on room air % Telemetry (2) COPD exacerbation: Status: Acute Assessment and plan: Continue home medicine regimen PRN nebs Blood cultures pending (3) Acute hypoxic respiratory failure: Status: Acute (4) Pulmonary fibrosis: Status: Acute Assessment and plan: Continue to f/u outpatient on remicade (5) Hypertension: Status: Chronic Assessment and plan: Continue home med therapy Qualifiers: Hypertension type: essential hypertension Qualified Code(s): I10 - Essential (primary) hypertension (6) Diabetes mellitus: Status: Chronic Assessment and plan: Gluc Ac and HS with SSI and bolus home dose of insulin glargine Qualifiers: Diabetes mellitus complication status: without complication Diabetes mellitus continuous churn buttermaker insulin use: without [place] use Diabetes mellitus type: type 2 Qualified Code(s): E11.9 - Type 2 diabetes mellitus without complicatio ns (7) Right shoulder pain: Status: Acute Assessment and plan: XR right shoulder Scheduled APAP (8) Acute kidney injury: Status: Resolved Assessment and plan: Most likely d/t dehydration with a Cr of 1.4 and a BUN of 19 , lactate 2.5 w/o fever or WBC IVF: LR at 80 cc/hr for 12 hours and reevaluate in AM - Last echo in showed an LVEF of 45 % (9) Discharge planning issues: Status: Acute Assessment and plan: Physical therapy consult: eval for discharge safety Will be d/c on oral anticoagulation for 3 months F/U with pulmonology Discussed with Dr. Ordaz Subjective Subjective Patient reports: no new complaints, tolerating liquids well, tolerating a regular diet and afebrile; denies shortness of breath Interval history since last seen: Is on room air and asymptomatic Exam Const General: frail appearing Nutritional Appearance: thin Orientation: alert, awake and oriented x3 HENMT Head: normal to inspection, normocephalic and atraumatic Chest Chest: normal inspection of the chest Resp Effort & Inspection: normal respiratory effort Cardio Rate: regular rate Rhythm: regular rhythm GI Inspection: normal to inspection Skin General skin exam: no rashes or lesions noted Neuro General: patient alert, patient awake and patient oriented x3 Extrem General: normal to inspection and full ROM Psych Mental Status: mental status grossly normal Speech and Movement: speech and movement normal Mood: congruent mood Affect: normal affect Objective Last Vital Signs Temp 36.2 C L 07/02/24 11:40 Pulse 47 L 07/02/24 11:40 Resp 18 07/02/24 11:40 BP 149/69 H 07/02/24 11:40 Pulse Ox 96 07/02/24 11:40 Laboratory Results - last 24 hr 07/01/24 07/01/24 07/01/24 13:20 13:26 13:49 WBC RBC Hgb Hct MCV MCH MCHC RDW Plt Count MPV Immature Gran % Neutrophils % Lymphocytes % Monocytes % Eosinophils % Basophils % Nucleated RBC % Absolute Neutrophils Absolute Lymphocytes Absolute Monocytes Absolute Eosinophils Absolute Basophils APTT 28.3 VBG Lactate Sodium Potassium Chloride Carbon Dioxide Anion Gap BUN Creatinine Est GFR (CKD-EPI 2020) Glucose Calcium 9.0 Magnesium 1.9 Troponin I NT-Pro-B Natriuret Pep 589 H Procalcitonin 0.2 Urine Color Urine Clarity Urine pH Ur Specific [place] Urine Protein Urine Ketones Urine Blood Urine Nitrite Urine Bilirubin Urine Urobilinogen Ur Leukocyte Esterase Urine RBC Urine WBC Ur Epithelial Cells Urine Crystals Urine Bacteria Urine Mucus Ur Culture Indicated? Urine Glucose COVID-19 Source NASOPHARYNX SARS-CoV-2 (PCR) Negative Influenza Type A (PCR) Negative Influenza Type B (PCR) Negative RSV (PCR) Negative 07/01/24 07/01/24 07/01/24 14:21 16:14 17:03 WBC RBC Hgb Hct MCV MCH MCHC RDW Plt Count MPV Immature Gran % Neutrophils % Lymphocytes % Monocytes % Eosinophils % Basophils % Nucleated RBC % Absolute Neutrophils Absolute Lymphocytes Absolute Monocytes Absolute Eosinophils Absolute Basophils APTT VBG Lactate Sodium Potassium Chloride Carbon Dioxide Anion Gap BUN Creatinine Est GFR (CKD-EPI 2020) Glucose Calcium Magnesium Troponin I 12 12 NT-Pro-B Natriuret Pep Procalcitonin Urine Color Yellow Urine Clarity Clear Urine pH 6.0 Ur Specific [place] <= 1.005 Urine Protein Negative Urine Ketones Negative Urine Blood Small H Urine Nitrite Negative Urine Bilirubin Negative Urine Urobilinogen 0.2 Ur Leukocyte Esterase Trace H Urine RBC 3-5 H Urine WBC 5-10 Ur Epithelial Cells Rare Urine Crystals Negative Urine Bacteria Negative Urine Mucus Trace Ur Culture Indicated? No Urine Glucose Negative COVID-19 Source SARS-CoV-2 (PCR) Influenza Type A (PCR) Influenza Type B (PCR) RSV (PCR) 07/01/24 07/01/24 07/02/24 19:00 21:55 07:28 WBC 6.95 RBC 4.70 Hgb 14.9 Hct 44.5 MCV 95 MCH 31.7 MCHC 33.5 RDW 13.7 Plt Count 164 MPV 10.7 Immature Gran % 0.4 Neutrophils % 69.8 Lymphocytes % 16.3 Monocytes % 13.1 Eosinophils % 0.1 Basophils % 0.3 Nucleated RBC % 0.0 Absolute Neutrophils 4.85 Absolute Lymphocytes 1.13 L Absolute Monocytes 0.91 H Absolute Eosinophils 0.01 Absolute Basophils 0.02 APTT 105.3 H* 96.7 H* VBG Lactate 1.4 Sodium 143 Potassium 4.5 Chloride 108 H Carbon Dioxide 29.0 Anion Gap 6.0 BUN 23 H Creatinine 1.0 Est GFR (CKD-EPI 2020) 78.00 Glucose 125 H Calcium 9.3 Magnesium 2.4 Troponin I NT-Pro-B Natriuret Pep Procalcitonin Urine Color Urine Clarity Urine pH Ur Specific [place] Urine Protein Urine Ketones Urine Blood Urine Nitrite Urine Bilirubin Urine Urobilinogen Ur Leukocyte Esterase Urine RBC Urine WBC Ur Epithelial Cells Urine Crystals Urine Bacteria Urine Mucus Ur Culture Indicated? Urine Glucose COVID-19 Source SARS-CoV-2 (PCR) Influenza Type A (PCR) Influenza Type B (PCR) RSV (PCR) Time Spent with Patient Time Spent with Patient: 35-49 minutes Time was spent: preparing to see the patient(eg.review tests), obtaining and/or reviewing separately otained hiistory, ordering medications,tests, procedures, indepentently interpreting results and counseling the patient
[2024-07-02 15:05] LABS: PTT Activated 60.7 sec (23.6-32.8)
[2024-07-02] MEDS: Warfarin 5 MG TAB PO (20:09)
[2024-07-02] MEDS: Atorvastatin 40 MG TAB 80 MG PO (20:09)
[2024-07-02] MEDS: Mupirocin 2% Oint. 22 GM TUBE TP (20:23)
[2024-07-02] MEDS: Insulin Glargine 300 UNITS/3 ML PEN 47 UNITS SC (20:23)
[2024-07-02 21:34] LABS: PTT Activated 57.3 sec (23.6-32.8)
[2024-07-03] MEDS: Acetaminophen 325 MG TAB 650 MG PO ×3 (01:38→14:28)
[2024-07-03 03:09] VITALS: BP 151/85; PULSE 46; RESP 18; TEMP 36.4; O2SAT 93
[2024-07-03] MEDS: Heparin in 0.45% NaCl 25,000 UNIT/250 ML BAG 11 UNIT IVINF (04:48)
[2024-07-03 06:51] LABS: Abs Immature Grans 0.01 10^3/uL (0.0-0.06); Absolute Basophil Count 0.04 10^3/uL (0.0-0.2); Absolute Eosinophil Count 0.62 10^3/uL (0.0-0.7); Absolute Lymphocyte Count 2.12 10^3/uL (1.2-3.4); Absolute Monocyte Count 0.86 10^3/uL (0.1-0.8); Absolute Neutrophil Count 2.83 10^3/uL (1.2-6.7); Basophils % 0.6 %; Eosinophils % 9.6 %; HCT 42.9 % (40.0-50.0); HGB 14.6 g/dL (13.5-17.5); Immature Grans % 0.2 %; Lymphocytes % 32.7 %; MCH 31.9 pg (27.0-33.0); MCV 94 fL (80-95); MPV 11.8 fL (8.0-11.0); Monocytes % 13.3 %; Neutrophils % 43.6 %; Platelet Count 180 10^3/uL (130-400); RBC 4.58 10^6/uL (4.36-5.78); RDW-SD 47.7 fL; WBC 6.48 10^3/uL (4.4-10.8)
[2024-07-03 06:58] LABS: INR 1.2 (0.9-1.1); Prothrombin Time 11.8 sec (9.1-11.1)
[2024-07-03 07:01] LABS: PTT Activated 63.7 sec (23.6-32.8)
[2024-07-03 07:03] LABS: BUN 24 mg/dL (7-18); Calcium 9.1 mg/dL (8.5-10.1); Chloride 107 mmol/L (98-107); Glucose 66 mg/dL (74-106); Sodium 144 mmol/L (136-145)
[2024-07-03 07:25] VITALS: BP 181/79; PULSE 45; RESP 20; TEMP 36.4; O2SAT 95
[2024-07-03] MEDS: Tiotropium/Olodaterol 10 PUFF INHALER 2 PUFF IH (07:46)
[2024-07-03 07:47] VITALS: O2SAT 94
[2024-07-03] MEDS: Aspirin 81 MG CHEW PO (08:41)
[2024-07-03] MEDS: Finasteride 5 MG TAB PO (08:41)
[2024-07-03] MEDS: buPROPion-CR 150 MG TABCR PO (08:41)
[2024-07-03] MEDS: Gabapentin 300 MG CAP PO ×2 (08:41→14:28)
[2024-07-03] MEDS: Docusate Sodium 100 MG CAP PO (08:42)
[2024-07-03] MEDS: Tamsulosin 0.4 MG CAPCR 0.8 MG PO (08:42)
[2024-07-03] MEDS: Ezetimibe 10 MG TAB PO (08:42)
[2024-07-03] MEDS: Clopidogrel 75 MG TAB PO (08:42)
[2024-07-03] MEDS: Pantoprazole 40 MG TABCR PO (08:42)
[2024-07-03] MEDS: Losartan 50 MG TAB 100 MG PO (08:42)
[2024-07-03] MEDS: Nicotine 14 MG/24 HR PATCH TD (08:43)
[2024-07-03] MEDS: Fluticasone NASAL SPRAY 16 GM BTL NS (08:51)
--- NOTE | 2024-07-03 09:46 | PDOC.CMPRO ---
Date of service: 07/03/24 Time of Service: 09:46 Care Management Progress Note Discharge Potential Discharge Needs: PCP F/U Appt Anticipated Barriers to Discharge: None Identified Patient/Family Education Needs: Review discharge instructions, discuss Ask Me Three Transportation: Private vehicle Plan: Anticipate Lawrence will be discharged home, possibly with new home health services, when medically cleared. He will follow up with his community providers and plan of care and transport with family. CM will continue to support discharge planning needs and concerns. SDOH(Care Management) Screening Will the Patient Participate in the Screening?: Yes Do you worry about having a steady place to live?: no In the past 12 months, have you had to go without electric, gas, oil or water in your home?: no Have you or anyone in your house had to go without enough food to eat?: no Has lack of transportation kept you from medical appointments or from doing things needed for daily living?: no Has anyone in your support network made you feel unsafe for any reason?: no
[2024-07-03 12:24] VITALS: BP 156/81; PULSE 55; RESP 18; TEMP 36.4; O2SAT 93
--- NOTE | 2024-07-03 13:56 | TELEFU_ITS ---
Date of service: 07/03/24 Time of Service: 13:57 Nutrition Note NOTE: Received nutrition consult regarding diabetes education/mgt. Pt is 78yo male admitted for acute hypoxic resp failureCOPD exacerbation, chronic pulm embolism. Hx of DMII, HTN. Takes 47units glargine HS at home along with weekly duleglutide. A1C was 6.0% 06/29/24 and since 2019 has been consistently in the 6's. Ordered for heart healthy, consistent carb diet order with normal consistencies. Lives at home with son. Checks his glucose once daily at fasting. Pt had FPG of 66 this morning but denies regular lows when checking fasting. Pt ordering his meals routinely and knows he can ask for modified textures as ne eded. Offered diabetes education - either briefly inpatient or with outpatient referral. Pt declined at this time. Pt's glycemic control is at goal currently. Will continue to monitor labs, po intake. PT expected to discharge home today or tomorrow. Time Spent in Nutritional Counseling and Treatment: 10 minutes
--- NOTE | 2024-07-03 14:19 | NUR.NOTE ---
Documentation reviewed with student DAIRY HUSBANDMAN, Mary Cuellar. Criss Husain, MSN, RNC-OB (clinical instructor)
[2024-07-03 16:09] VITALS: BP 197/75; PULSE 48; RESP 18; TEMP 36.6; O2SAT 93
--- NOTE | 2024-07-03 18:41 | W.PM.DS.N ---
Date of service: 07/03/24 Time of Service: 18:41 DS: Diagnosis Discharge Diagnosis (1) Pulmonary embolism: Status: Chronic (2) COPD exacerbation: Status: Acute (3) Acute hypoxic respiratory failure: Status: Acute (4) Pulmonary fibrosis: Status: Acute (5) Hypertension: Status: Chronic (6) Diabetes mellitus: Status: Chronic (7) Right shoulder pain: Status: Acute (8) Acute kidney injury: Status: Resolved (9) Discharge planning issues: Status: Acute Discharge Plan Disposition Patient Disposition: Home Condition: Improving Discharge Details Reason For Visit: Pulmonary emboli Admit Date/Time: 07/01/24 16:22 Admit Provider: Anton Ordaz Attending Provider: Anton Ordaz Primary Care Provider: Mike Burns Hospital Course Hospital Course: This 78-year-old male patient with past medical history of COPD and current tobacco abuse, myocardial infarction, CVA, cardiac stenting, hypertension, diabetes mellitus, hyperlipidemia, kidney stone, coronary artery disease presented on 07/01/2024 to the emergency department at an [facility] for evaluation of bilateral shoulder pain with right-sided pain more intense, reported flu COVID-vaccine to the right shoulder recently and fall on Wednesday onto the right shoulder. Arrival to the ED the patient was found to have a saturation of oxygen in the 70's. The patient reported fever but denied diaphoresis. Patient also endorsed pain radiating to the left arm and neck. Workup in the ED included an EKG that was not significant for ischemia, a VBG lactate of 2.5, a creatinine of 1.4 with baseline around 1 with a BUN of 19, BNP was minimally elevated at 589. A CTA showed pulmonary emboli in the branches in the left lingula without evidence of right cardiac strain; pulmonary emphysema and fibrosis also seen. The hospitalist was consulted and patient admitted for hypoxic respiratory failure due to pulmonary emboli, CORINE due to dehydration. Blood cultures were drawn and pending. In the ED the patient was initiated on an heparin drip for pulmonary emboli DVT protocol and was treated with IV crystalloid. During the stay, the heparin drip continue as per protocol. The patient had no further oxygen requirement. The patient had mention that oxygen was ordered in the past but was not initiated at home due to the financial burden. Today oxygen level remained 93-95% on room air. 1 dose of warfarin 5 mg was administered to patient on 07/10/2024 in an attempt to bridge the patient while on the heparin drip. Upon verifying insurance coverage it was found out that the patient co-pay for rivaroxaban for therapy would be in the amount of $1. The patient verbalizes desire to be discharged home tonight to care management. Rivaroxaban 15 mg was initiated during the stay and the patient will have to continue rivaroxaban 15 mg 2 times a day for 21 days. Subsequently after 21 days the patient will have to initiate rivaroxaban 20 mg daily for a total minimal duration of 3 months. Outpatient pulmonary follow-up will determine if the patient needs to continue rivaroxaban indefinitely. Referral to pulmonology will be initiated. The patient will have to complete bilateral ultrasound of his lower extremities as an outpatient as well as follow-up within 7 days with his primary care practitioner. Discussed with Dr. Ordaz Home Meds and New Rx's Prescriptions: New rivaroxaban 15 mg tablet 15 mg PO BID Qty: 41 0RF Rx Instructions: must administer with evening meal for 21 days then 20 mg orally daily Continued aspirin 81 mg tablet,chewable 81 mg PO DAILY fluticasone propionate 50 mcg/actuation spray,suspension 2 spray NS DAILY Qty: 1 8RF insulin glargine 100 unit/mL (3 mL) insulin pen 47 unit SC HS Qty: 45 3RF Trulicity 0.75 mg/0.5 mL pen injector 0.75 mg SC QWEEK Qty: 6 3RF finasteride 5 mg tablet 5 mg PO DAILY Qty: 90 3RF losartan 100 mg tablet 100 mg PO DAILY Qty: 90 3RF (DME) pen needle, diabetic [Advocate Pen Needle] 33 gauge x 5/32 needle See Rx Instructions .ROUTE .MEDSUPPLY Qty: 100 3RF Rx Instructions: inject once/day amlodipine 5 mg tablet 5 mg PO BID Qty: 180 3RF nitroglycerin [Nitrostat] 0.4 mg tablet, sublingual 0.4 mg Sublingual PRN Qty: 25 11RF Rx Instructions: 1 TAB SL PRN loratadine 10 mg capsule 10 mg PO DAILY PRN Anoro Ellipta 62.5-25 mcg/actuation blister with device 1 inh inhalation DAILY Qty: 60 12RF mupirocin 2 % ointment 1 applic topical TID Qty: 50 1RF Rx Instructions: Apply to both ear canals, fingernails, anterior nares docusate sodium [Colace] 100 mg capsule 100 mg PO DAILY Qty: 90 1RF (DME) Space Chamber Plus 1 EACH spacer 1 ea Miscellaneous PRN Qty: 1 infliximab [Remicade] 100 MG recon soln 1,000 mg IV .[id number] Patient Comments: 05/31/15 Jacqui at [facility] Rheumatology reports: 1000mg IV infusion every 6 months. Done at [facility]. DL 03/05/17 q 4 months. si lorazepam [Ativan] 1 mg tablet 1 mg PO DAILY PRN (Reason: anxiety) Qty: 2 0RF Rx Instructions: take 1 pill about 1 hour prior to scheduled MRI - if still anxious when you check in at the hospital, may take 2nd pill (DME) blood-glucose meter [FreeStyle Lite Meter] Kit See Rx Instructions .ROUTE .MEDSUPPLY Qty: 1 0RF Rx Instructions: test once/day (DME) Contour Test Strips Strip See Rx Instructions .Route Qty: 300 4RF Rx Instructions: Test three times daily (DME) lancets [TRUEplus Lancets] 28 gauge misc See Rx Instructions .Route Qty: 100 3RF Rx Instructions: test once/day pantoprazole 40 mg tablet,delayed release (DR/EC) 40 mg PO DAILY Qty: 90 3RF Rx Instructions: TAKE 6 HOURS APART FROM YOUR PLAVIX albuterol sulfate [Ventolin HFA] 90 mcg/actuation HFA aerosol inhaler 2 inh INHALATION Q6H PRN (Reason: bronchospasm) Qty: 8.5 5RF bupropion HCl 150 mg tablet sustained-release 12 hr 150 mg PO BID Qty: 180 3RF clopidogrel [Plavix] 75 mg tablet 75 mg PO DAILY Qty: 90 4RF tamsulosin 0.4 mg capsule 0.8 mg PO DAILY Qty: 180 3RF sildenafil 100 mg tablet 100 mg PO DAILY PRN (Reason: sexual activity) Qty: 5 12RF Rx Instructions: administer 30 minutes to 4 hours before activity. Do not use nitro at the same time as this medication atorvastatin 80 mg tablet 80 mg PO QHS Qty: 90 3RF ezetimibe 10 mg tablet 10 mg PO DAILY Qty: 90 4RF gabapentin 300 mg capsule See Rx Instructions .ROUTE .COMPLEX Qty: 90 5RF Dose Instruction: TAKE ONE CAPSULE BY MOUTH THREE TIMES A DAY Rx Instructions: TAKE ONE CAPSULE BY MOUTH THREE TIMES A DAY acetaminophen 650 MG tablet extended release 650 mg PO Q8H PRN (Reason: Pain) Qty: 20 0RF epinephrine 0.3 mg/0.3 mL auto-injector 0.3 mg IM ONCE Qty: 2 0RF Rx Instructions: as a single dose; may repeat once Discharge Instructions Referrals: Miguel Clifton MD [MD NON-[facility] STAFF PHYSICIAN] - Rebecca Amos PA [PHYSICIANS DAIRY CLERK] - (Pulmonology f/u within 7 days at [facility] pulmonology for NEW PE) Mike Burns MD [Primary Care Provider] - (Follow with PCP within 7 days of discharge) Activity:: Activity as Tolerated Equipment/Supplies:: No Equipment Needed Diet:: heart healthy diabetic Discharge Orders Discharge Orders: Discharge Order (Routine); Ordered 07/03/24 Ordered By: Karlee Knowles Other Ambulatory Orders: US extremity venous BI (Routine) Timeframe: 10 Day Facility: [facility] - Location: DIAGNOSTIC IMAGING Ordered By: Karlee Knowles DS: Summary Time Spent with Patient providing and/or coordinating discharge services: Greater than 30 minutes Status at Discharge Functional status at discharge: independent ambulation Overall status at discharge: patient is progressing back to baseline Mental Status: mental status grossly normal Speech and Movement: speech and movement normal Mood: congruent mood Affect: normal affect Quality:SDOH Health Related Social Needs: Health related social needs details difficulty obtaining meds due to cost Exam Narrative Exam Narrative: Neuro:Alert and oriented X3, no focal deficit Resp: Normal respiratory, pattern unlabored breathing, Clear lung bilaterally, fine LLL velcro-crakles Cardio: regular rhythm, S1, S2, no murmur GI: Abdomen is not distended, soft and non tender, bowel sounds are present Integumentary: No skin lesions or rash on exposed skin Extremities: strength 5/5 to bilateral lower and upper extremities Psych: RASS 0, congruent mood and normal affect. Psych Mental Status: mental status grossly normal Speech and Movement: speech and movement normal Mood: congruent mood Affect: normal affect DS: Data Vitals/I&O Vitals and I&O: Vital Signs Temperature 36.6 C 07/03/24 16:09 Temperature Source Tympanic 07/03/24 16:09 Pulse 48 L 07/03/24 16:09 Pulse 63 07/01/24 17:01 Respiratory Rate 18 07/03/24 16:09 Respiratory Effort Normal 07/01/24 17:37 Respiratory Depth Normal 07/01/24 13:24 Respiratory Pattern Normal 07/01/24 13:24 Blood Pressure 197/75 H 07/03/24 16:09 Blood Pressure Mean 109 07/01/24 17:01 Pulse Oximetry 93 07/03/24 16:09 Oxygen Delivery Method Room Air 07/03/24 16:09 Oxygen Flow Rate 0 07/03/24 16:09 Pain Level 0 07/03/24 16:09 Comment RN notified. 07/03/24 07:25 Comment 2l 07/01/24 14:00 Intake & Output 07/02/24 07/03/24 07/03/24 23:59 11:59 23:59 Intake Total 148.316 / 322.108 95.725 / 95.725 Output Total 600 / 600 1450 / 2000 550 / 2000 Balance -451.684 / -277.892 -1354.275 / -1904.275 -550 / -1904.275 Intake: IV 148.316 / 322.108 95.725 / 95.725 Output: Urine 600 / 600 1450 / 2000 550 / 2000 Other: Urine Color Yellow Yellow Yellow Urine Appearance Clear Clear Urine Odor None Normal None Comment voided into toilet patient voided independently in toilet. Data Completed and Pending Labs on day of discharge: Labs from last 24 hours 07/03/24 07/02/24 06:18 21:14 WBC 6.48 RBC 4.58 Hgb 14.6 Hct 42.9 MCV 94 MCH 31.9 MCHC 34.0 RDW 14.0 Plt Count 180 MPV 11.8 H Immature Gran % 0.2 Neutrophils % 43.6 Lymphocytes % 32.7 Monocytes % 13.3 Eosinophils % 9.6 Basophils % 0.6 Nucleated RBC % 0.0 Absolute Neutrophils 2.83 Absolute Lymphocytes 2.12 Absolute Monocytes 0.86 H Absolute Eosinophils 0.62 Absolute Basophils 0.04 PT 11.8 H INR 1.2 H APTT 63.7 H 57.3 H Sodium 144 Potassium 4.0 Chloride 107 Carbon Dioxide 29.0 Anion Gap 8.0 BUN 24 H Creatinine 1.0 Est GFR (CKD-EPI 2020) 78.00 Glucose 66 L Calcium 9.1 Preliminary micro results at discharge 07/01/24 13:58 Blood Culture - Preliminary Blood NO GROWTH 48 HOURS 07/01/24 14:00 Blood Culture - Preliminary Blood NO GROWTH 48 HOURS PFSH All Active Problems Right shoulder pain (Acute) Discharge planning issues (Acute) Pulmonary embolism (Chronic) COPD exacerbation (Acute) Acute hypoxic respiratory failure (Acute) Chronic otitis externa of both ears (Acute) Acute serous otitis media, right ear (Acute) Acute otitis externa of right ear (Acute) Internal nasal lesion (Acute) Pulmonary fibrosis (Acute) Acute exacerbation of chronic obstructive pulmonary disease (Acute) Acute otitis externa of left ear (Acute) Hypertension (Chronic) same meds, good BP here today Ear pain, right (Acute) Impetigo (Acute) [place] (dyspnea on exertion) (Acute) Cellulitis (Acute) Epistaxis (Acute) Nasal vestibulitis (Acute) Sensorineural hearing loss, bilateral (Acute) Impacted cerumen, bilateral (Acute) Weight loss (Acute) Elevated PSA, between 10 and less than 20 ng/ml (Acute) Chronic obstructive lung disease (Chronic) pulmonary fibrosis on chest xray ongoing tobacco use add back budesonide nebs to see if we can improve cough Diabetes mellitus (Chronic 05/05/13) check A1c and creat Gastroesophageal reflux disease (Chronic) Hyperlipidemia (Chronic 05/05/13) Kidney stone (Acute 09/14/14) recurrent x3 on left [facility] Urology 10/12/16-[facility]; F/U Dr. Fair Male erectile disorder (Acute 08/29/13) Palpitations (Acute 11/04/12) multiple PVCs, bradycardia (2013) ([facility], Dr Abraham, echo normal LVEF and stress test neg ischemia) Rheumatoid arthritis (Chronic 05/05/13) [facility], Dr Leon Smoker (Chronic) Tubular adenoma (Acute) 11/20 COLONOSCOPY: ONE TUBULOVILLOUS ADENOMA & TWO TUBULAR ADENOMAS. 05/22/13: DR. Mateusz COPELAND:TUBULAR ADENOMAS 11/13/16: Dr Jian Crump: tublular and tubulovillous adenomas Erectile dysfunction (Chronic) Lipoma (Acute) Depressive disorder (Chronic) RCA occlusion (Acute) 05/25/19 [facility] Bradycardia (Acute) Cigarette smoker (Acute) Fatigue (Acute) Chronic knee pain (Acute) Arthritis of knee, right (Acute) Bilateral hip joint arthritis (Acute) Degenerative lumbar spinal stenosis (Acute) Adenomatous polyps (Acute) Serrated adenoma of colon (Acute ~07/2020) Mallet deformity of left ring finger (Acute 11/30/20) with avulsion fracture Anaphylaxis due to hymenoptera venom (Acute) Cellulitis of ear (Acute) Aortic atherosclerosis (Acute) Emphysema lung (Acute) Tubular adenoma of colon (Acute) COPD with acute exacerbation (Acute) 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) Cardiomyopathy (Acute) Otitis externa, left (Acute) Medical History Pneumonia Eczema Hypoxemia Sepsis COPD (chronic obstructive pulmonary disease) BPH loc w urin obs/LUTS Myocardial infarction 2020 x2 stents CVA (cerebral vascular accident) (11/21/17) ASCVD (arteriosclerotic cardiovascular disease) (05/05/13) 2 NEW STENTS 04/22 H/O IMI; angioplasty and stent; [place] , 02/11; CVA/TIA Surgical History Stented coronary artery 05/25/19 [facility]; s/p stent of old stent-KB History of incisional hernia repair History of knee surgery RESECTION ANGIOFIBROMA;RIGHT FOOT 02/04/18 KNEE REPAIR RIGHT Hernia Repair, Incisional Excision, Lipoma (05/19/16) posterior neck Colostomy (~2006) TEMP W/ REVISION Colonoscopy - MAC (11/13/16) Colonoscopy - MAC (05/16/13) Family History Mother Essential hypertension Heart disease Stroke Father Stroke Brother Heart disease Family History Diabetes Heart disease Cancer Brother No problems noted. Brother No problems noted. Sister No problems noted. Sister Alcohol abuse Social History Smoking/Tobacco Use Status: Current every day Tobacco Type: cigarettes Tobacco: How many years used: 60 Quit status: has quit before Second Hand Exposure: Yes Smoking risk assessment performed?: Yes Alcohol Intake: former Drug use: Never Substance use type: does not use Household members: family Housing: house Communication Needs: None Do you need help understanding health information?: Rarely Pets and animals: Yes Pets and animals: cat(s) Sexually active: No Current gender identity: male What is your relationship status?: How often do you talk on the phone with friends or family?: three or more times per week How often do you get together with friends or relatives?: twice per week How often do you attend catholic or congregation services?: decline to answer Do you belong to any clubs or organized social groups?: no Panel score (0-1 are the most socially isolated patients): 1 What type of physical activity do you participate in: walking Duration: < 15 minutes/day Frequency: 1-2 times per week Monika/Adventist: None Special monika needs: No Seatbelt use: sometimes Helmet use: No Drive intox or ride w/intox courtesy van driver: No Do you feel safe at home: Yes Do you feel safe in your relationship?: Yes Additional Social history: Lives with son Time Spent with Patient Time Spent with Patient: 70-84 minutes4 Time was spent: preparing to see the patient(eg.review tests), obtaining and/or reviewing separately otained hiistory, ordering medications,tests, procedures, referring, communicating with other health customer care associate, indepentently interpreting results, counseling the patient and care coordination
[2024-07-03] MEDS: Rivaroxaban 15 MG TABLET PO (18:53)
== END 2024-07-03 19:46 | disposition home or self-care (01) | DRG 175 ==
LOC: ER 17:13 → MS 17:15
PROVIDERS: Family Medicine; Nurse Practitioner Acute Care; Admitting Provider Internal Medicine; Emergency Provider Physician Assistant; PCP Family Medicine; Visit Provider Internal Medicine
DX: I26.99 Other pulmonary embolism without acute cor pulmonale (principal); J96.01 Acute respiratory failure with hypoxia; J44.1 Chronic obstructive pulmonary disease with (acute) exacerbation; N17.9 Acute kidney failure, unspecified; I42.9 Cardiomyopathy, unspecified; J84.10 Pulmonary fibrosis, unspecified; I10 Essential (primary) hypertension; E11.9 Type 2 diabetes mellitus without complications; M25.511 Pain in right shoulder; F17.210 Nicotine dependence, cigarettes, uncomplicated; I25.2 Old myocardial infarction; Z86.73 Personal history of transient ischemic attack (TIA), and cerebral infarction without residual deficits; Z95.5 Presence of coronary angioplasty implant and graft; E78.5 Hyperlipidemia, unspecified; I25.10 Atherosclerotic heart disease of native coronary artery without angina pectoris; W19.XXXA Unspecified fall, initial encounter; E86.0 Dehydration; H60.63 Unspecified chronic otitis externa, bilateral; H90.3 Sensorineural hearing loss, bilateral; K21.9 Gastro-esophageal reflux disease without esophagitis; I70.0 Atherosclerosis of aorta; Z79.85 Long-term (current) use of injectable non-insulin antidiabetic drugs
CPT/HCPCS: 00123; 36410; 36415; 71275; 80048; 80053; 82805; 83690; 84145; 87040; 87637; 93005; 94640; 96365; 96366; 96367; 96375; 99285; 73030; 81003; 81015; 83605; 83735; 83880; 84484; 85025; 85610; 85730; 93010; 94664; 94760; 99223; 99232; 99239; J1644; J1815; J2919; J3475; J3490; J7620

== ENCOUNTER 2024-07-04 08:30 | Outpatient (CLI) | payer MEDICARE, SELFPAY ==
--- NOTE | 2024-07-04 09:00 | DI.US_ITS ---
Exam(s) US EXTREMITY VENOUS BI EXAM: US EXTREMITY VENOUS BI CLINICAL HISTORY: PE,I26.99. TECHNIQUE: Bilateral lower extremity venous ultrasound performed using grayscale, color-flow, and sp ectral Doppler analysis. COMPARISON: No exams were available for comparison FINDINGS: The right common femoral, femoral and popliteal veins demonstrate normal compressibility, augmentatio n, and color Doppler. The posterior tibial veins are patent. The saphenofemoral junction is unremark able. There is no evidence of a Gagnon's cyst. The soft tissues are unremarkable. The left common femoral, femoral and popliteal veins demonstrate normal compressibility, augmentation , and color Doppler. The posterior tibial veins are patent. The saphenofemoral junction is unremarka ble. There is no evidence of a Gagnon's cyst. The soft tissues are unremarkable. IMPRESSION: 1. No evidence of a right lower extremity DVT. 2. No evidence of a left lower extremity DVT. DATA REPOSITORY:
== END 2024-07-04 08:50 ==
LOC: DI 08:30
PROVIDERS: PCP Family Medicine; Visit Provider Nurse Practitioner Acute Care
DX: I26.99 Other pulmonary embolism without acute cor pulmonale (principal)
CPT/HCPCS: 93970

== ENCOUNTER → 2024-07-17 07:59 | Outpatient (BNVA) | payer MEDICARE, SELFPAY | PROVIDERS: PCP Family Medicine; Referring Provider Family Medicine; Visit Provider Physician Assistant Surgical | DX: J84.10 Pulmonary fibrosis, unspecified (principal); J44.9 Chronic obstructive pulmonary disease, unspecified; M06.9 Rheumatoid arthritis, unspecified; J96.11 Chronic respiratory failure with hypoxia; F17.200 Nicotine dependence, unspecified, uncomplicated | CPT/HCPCS: 99214 ==

== ENCOUNTER 2024-07-24 01:39 | Outpatient (CLI) | payer MEDICARE, SELFPAY ==
--- NOTE | 2024-07-24 10:43 | DI.CTLCSR_ITS ---
Exam(s) CT CHEST LUNG CANCER SCREEN EXAM: CT CHEST LUNG CANCER SCREEN CLINICAL HISTORY: Screening for lung cancer,CURRENT SMOKER, F17.210 TECHNIQUE: Imaging Protocol: Axial computed tomography images with coronal and sagittal reformatted images were created and reviewed. Low dose screening protocol. COMPARISON: CT CT CHEST PE CTA from 07/01/2024 FINDINGS: Exam somewhat limited by motion. Tracheobronchial tree: No bronchiectasis or mucus plugging. Mediastinum and Delilah: No dominant adenopathy or fluid collection. Pulmonary parenchyma: No consolidation or dominant measurable mass. Moderate to severe emphysematous and fibrotic changes Lung Nodules: 4 x 6 millimeter nodule anterior medial right upper lobe which contains calcification, consistent with granuloma. Other small scattered calcified granulomas are seen. Pleura: No effusion. No pneumothorax. Heart: The heart is mildly dilated. moderate coronary artery calcifications are seen. No pericardial effusion. Aorta: Thoracic aorta non-dilated. Moderate atherosclerotic changes. Upper abdomen: Unremarkable. Bones: Stable mild midthoracic compression fractures. Degenerative disc changes. Soft Tissues: Unremarkable. IMPRESSION: No suspicious pulmonary nodules. Emphysematous and fibrotic changes. Lung RADS Cat 1 - Negative: No nodules and definitely benign nodules Lung-RADS 1.0 CATEGORIES: Category 0 - Prior chest CT exam(s) being located for comparison. Category 1 - Annual screening in 12 months. No nodules or definitely benign nodules. Category 2 - Annual screening in 12 months. Benign appearance. Nodules with low likelihood of becomin g active cancer. Category 3 - 6-month follow-up. Probably benign. Short-term follow-up suggested. Nodules with low lik elihood of becoming active cancer. Category 4A - 3-month follow-up and CT/PET if >8 mm in size. Suspicious finding. Findings which requi re additional testing. Category 4B - Findings which require additional testing and tissue sampling. Category 4X - Category 3 or 4 nodules with additional features or imaging findings that increases the suspicion of malignancy. Modifier S- Potentially clinically significant findings (non lung cancer) RADIATION DOSE DELIVERED: !Error Total DLP DATA REPOSITORY: All CT scans at this facility are submitted to the National Radiology Data Registry (NRDR) Dose Index Registry (DIR) with the [employer] (ACR). RADIATION OPTIMIZATION: All CT scans at this facility use at least one of these dose optimization te chniques: automated exposure control; mA and/or kV adjustment per patient size (includes targeted exa ms where dose is matched to clinical indication); or iterative reconstruction.
== END 2024-07-24 01:59 ==
PROVIDERS: PCP Family Medicine; Visit Provider Physician Assistant Surgical
DX: F17.210 Nicotine dependence, cigarettes, uncomplicated (principal); Z12.2 Encounter for screening for malignant neoplasm of respiratory organs; R91.8 Other nonspecific abnormal finding of lung field
CPT/HCPCS: 71271

== ENCOUNTER 2024-07-30 15:54 | Inpatient (IN) | payer MEDICARE, SELFPAY ==
[2024-07-30] VITALS (45 sets, daily range): BP systolic 108–171; BP diastolic 51–88; PULSE 53–92; RESP 16–32; TEMP 36.6–37.3; O2SAT 84–97
--- NOTE | 2024-07-30 16:00 | DI.RAD_ITS ---
Exam(s) XR SHOULDER RT COMPLETE 2+V EXAM: XR SHOULDER RT COMPLETE 2+V CLINICAL HISTORY: Fall, pain. TECHNIQUE: 2D digital imaging was performed. COMPARISON: CR,XR XR SHOULDER RT COMPLETE 2+V from 07/01/2024 FINDINGS: Five views. No evidence of fracture or dislocation. Very faint calcific densities are seen medially adjacent to the greater tuberosity most probably related to to chronic tendinitis and not related to acute trauma . The subacromial space is not diminished. There are mild degenerative changes in the glenohumeral joint. Moderate degenerative changes in the AC joint. Coracoid process is intact. Clavicle intact. No adjacent rib fractures. IMPRESSION: As above but no acute osseous findings in the right shoulder. DATA REPOSITORY: RADIATION DOSE DELIVERED:
--- NOTE | 2024-07-30 16:00 | DI.CT_ITS ---
Exam(s) CT CHEST PE CTA EXAM: CT CHEST PE CTA CLINICAL HISTORY: SOB, eval PNA. Known PE, eval extension. TECHNIQUE: Imaging Protocol: CT angiography of the chest was performed using pulmonary embolus debra col. Multi planar reconstructions were performed. CONTRAST MATERIAL: Intravenous: Omnipaque 350 Contrast volume: 100 cc COMPARISON: CT CT CHEST PE CTA from 07/01/[address] CHEST LUNG CANCER SCREEN from 07/24/2024 FINDINGS: CHEST: PULMONARY ARTERIES: There are no intraluminal filling defects in the right lung pulmonary arteries. In the left lung there are filling defects again noted in the lingular segment but on the present price dy there are less filling defects in the lower lobe vessels of the left lung. No obvious pulmonary i nfarct. LUNGS: COPD and bilateral pulmonary fibrosis changes are again evident.. There are no pleural effusi ons. MEDIASTINUM: No significant hilar nor mediastinal adenopathy. CARDIAC: Heart size is upper normal. There is no pericardial effusion.Caliber of the thoracic aorta is within normal limits. No evidence of dissection there is no significant shift of the interventricu lar septum. PARTIALLY VISUALIZED UPPERMOST ABDOMEN: Anterior abdominal wall hernia mesh is evident. No adrenal m asses. No splenomegaly. OSSEOUS: No significant osseous lesions.No new fractures.. IMPRESSION: 1. Previously present intraluminal filling defects in left lung lingular pulmonary vessels is again n oted. Lesser amount of intraluminal defects in left lower lobe vessels when compared to the prior st udy of 07/01/2024..No evidence of emboli in the opposite-right lung. 2. COPD and pulmonary fibrosis changes again noted. No evidence of pulmonary infarct. No pleural ef fusions. Report called by myself to ER physician 07/30/2024 at 6:45 p.m. RADIATION DOSE DELIVERED: 124.38mGy.cm Total DLP DATA REPOSITORY: All CT scans at this facility are submitted to the National Radiology Data Registry (NRDR) Dose Index Registry (DIR) with the [employer] (ACR). RADIATION OPTIMIZATION: All CT scans at this facility use at least one of these dose optimization te chniques: automated exposure control; mA and/or kV adjustment per patient size (includes targeted exa ms where dose is matched to clinical indication); or iterative reconstruction.
--- NOTE | 2024-07-30 16:00 | DI.RAD_ITS ---
Exam(s) XR KNEE RT 3V AP,LAT,MARCUS EXAM: XR KNEE RT 3V AP,LAT,MARCUS CLINICAL HISTORY: Fall, pain. TECHNIQUE: 2D digital imaging was performed. COMPARISON: CR XR KNEE RT 3V AP,LAT,MRACUS from 04/24/2022 FINDINGS: 3 views No evidence of acute fracture nor prominent joint effusion. There is advanced degenerative narrowing of the medial compartment. Lateral compartment exhibits nor mal height. Large degenerative subarticular cyst is seen in the mid anterior tibial plateau. Small calcific density seen the medial aspect of the joint with some increased soft tissue density at this level. IMPRESSION: Degenerative changes, most prominent in the medial compartment. Medial findings as described above. Correlation with any clinical pain over the medial collateral li gament region recommended. DATA REPOSITORY: RADIATION DOSE DELIVERED:
--- NOTE | 2024-07-30 16:00 | RT.EKG_ITS ---
APPROVED REPORT Exam: Resting ECG Reason for Exam: Fall, weakness Patient Location: E HR:77 bpm ECG Measurements Heart Rate 77 AXIS CO 219 P -28 QRSd 106 QRS -51 QT 373 T 33 QTc 421 Conclusion Sinus rhythm, rate 77 No significant interval abnormalities No STEMI Q waves II, III, aVF consistent with old infarct
--- NOTE | 2024-07-30 16:04 | DI.CT_ITS ---
Exam(s) CT HEAD CERVICAL SPINE WO EXAM: CT HEAD CERVICAL SPINE WO CLINICAL HISTORY: Fall on anticoagulation. TECHNIQUE: Imaging Protocol: Axial computed tomography images with coronal and sagittal reformatted images were created and reviewed COMPARISON: CT CT HEAD WO from 02/27/2023 FINDINGS: Head CT Ventricles and Extra axial spaces: Normal in size and morphology for the patient's age. Hemorrhage: None. Cerebral parenchyma: No evidence of mass or acute infarct. Mild white matter changes of small vess el disease. Midline shift: None. Brainstem/Cerebellum: Normal. Calvarium: Normal. Visualized Paranasal sinuses/Mastoids: Clear. Soft tissues: Unremarkable. Cervical Spine CT BONES: Vertebral body heights are maintained. Alignment is normal. There is no evidence of acute frac ture. Degenerative disc changes and facet degenerative changes are seen . SOFT TISSUES: No paraspinal hematoma. The airway appears intact. Chronic posterior calcification. M ild degenerative changes. No pneumothorax is seen at the lung apices. Emphysematous changes are present. IMPRESSION: Head CT: No acute abnormality. C-spine CT: Degenerative changes, no acute abnormality. RADIATION DOSE DELIVERED: Total DLP DATA REPOSITORY: All CT scans at this facility are submitted to the National Radiology Data Registry (NRDR) Dose Index Registry (DIR) with the [employer] (ACR). RADIATION OPTIMIZATION: All CT scans at this facility use at least one of these dose optimization te chniques: automated exposure control; mA and/or kV adjustment per patient size (includes targeted exa ms where dose is matched to clinical indication); or iterative reconstruction.
--- NOTE | 2024-07-30 16:07 | W.ED.GENAD ---
Discharge Plan Disposition Patient Disposition: Admit to [facility] Condition: Fair Discharge Details Chief Complaint: SOB Clinical Impression: Acute hypoxic respiratory failure, Pulmonary fibrosis, Chronic obstructive lung disease, Pulmonary embolism, Diabetes mellitus, Hyperlipidemia, Rheumatoid arthritis, Hypertension, Aortic atherosclerosis, Pulmonary emphysema with fibrosis of lung, COVID-19, Fall Primary Care Provider: Mike Burns ED Provider: Shelly Culp Home Meds and New Rx's Prescriptions: No Action aspirin 81 mg tablet,chewable 81 mg PO DAILY fluticasone propionate 50 mcg/actuation spray,suspension 2 spray NS DAILY Qty: 1 8RF insulin glargine 100 unit/mL (3 mL) insulin pen 47 unit SC HS Qty: 45 3RF Trulicity 0.75 mg/0.5 mL pen injector 0.75 mg SC QWEEK Qty: 6 3RF finasteride 5 mg tablet 5 mg PO DAILY Qty: 90 3RF losartan 100 mg tablet 100 mg PO DAILY Qty: 90 3RF (DME) pen needle, diabetic [Advocate Pen Needle] 33 gauge x 5/32 needle See Rx Instructions .ROUTE .MEDSUPPLY Qty: 100 3RF Rx Instructions: inject once/day amlodipine 5 mg tablet 5 mg PO BID Qty: 180 3RF nitroglycerin [Nitrostat] 0.4 mg tablet, sublingual 0.4 mg Sublingual PRN Qty: 25 11RF Rx Instructions: 1 TAB SL PRN loratadine 10 mg capsule 10 mg PO DAILY PRN Anoro Ellipta 62.5-25 mcg/actuation blister with device 1 inh inhalation DAILY Qty: 60 12RF mupirocin 2 % ointment 1 applic topical TID Qty: 50 1RF Rx Instructions: Apply to both ear canals, fingernails, anterior nares docusate sodium [Colace] 100 mg capsule 100 mg PO DAILY Qty: 90 1RF rivaroxaban 20 mg tablet 20 mg PO DAILY Qty: 90 0RF Rx Instructions: must administer with evening meal (DME) Space Chamber Plus 1 EACH spacer 1 ea Miscellaneous PRN Qty: 1 infliximab [Remicade] 100 MG recon soln 1,000 mg IV .[id number] Patient Comments: 05/31/15 Jacqui at [facility] Rheumatology reports: 1000mg IV infusion every 6 months. Done at [facility]. DL 03/05/17 q 4 months. si lorazepam [Ativan] 1 mg tablet 1 mg PO DAILY PRN (Reason: anxiety) Qty: 2 0RF Rx Instructions: take 1 pill about 1 hour prior to scheduled MRI - if still anxious when you check in at the hospital, may take 2nd pill (DME) blood-glucose meter [FreeStyle Lite Meter] Kit See Rx Instructions .ROUTE .MEDSUPPLY Qty: 1 0RF Rx Instructions: test once/day (DME) Contour Test Strips Strip See Rx Instructions .Route Qty: 300 4RF Rx Instructions: Test three times daily (DME) lancets [TRUEplus Lancets] 28 gauge misc See Rx Instructions .Route Qty: 100 3RF Rx Instructions: test once/day pantoprazole 40 mg tablet,delayed release (DR/EC) 40 mg PO DAILY Qty: 90 3RF Rx Instructions: TAKE 6 HOURS APART FROM YOUR PLAVIX albuterol sulfate [Ventolin HFA] 90 mcg/actuation HFA aerosol inhaler 2 inh INHALATION Q6H PRN (Reason: bronchospasm) Qty: 8.5 5RF bupropion HCl 150 mg tablet sustained-release 12 hr 150 mg PO BID Qty: 180 3RF clopidogrel [Plavix] 75 mg tablet 75 mg PO DAILY Qty: 90 4RF sildenafil 100 mg tablet 100 mg PO DAILY PRN (Reason: sexual activity) Qty: 5 12RF Rx Instructions: administer 30 minutes to 4 hours before activity. Do not use nitro at the same time as this medication atorvastatin 80 mg tablet 80 mg PO QHS Qty: 90 3RF ezetimibe 10 mg tablet 10 mg PO DAILY Qty: 90 4RF gabapentin 300 mg capsule See Rx Instructions .ROUTE .COMPLEX Qty: 90 5RF Dose Instruction: TAKE ONE CAPSULE BY MOUTH THREE TIMES A DAY Rx Instructions: TAKE ONE CAPSULE BY MOUTH THREE TIMES A DAY tamsulosin 0.4 mg capsule 0.8 mg PO DAILY Qty: 180 3RF acetaminophen 650 MG tablet extended release 650 mg PO Q8H PRN (Reason: Pain) Qty: 20 0RF epinephrine 0.3 mg/0.3 mL auto-injector 0.3 mg IM ONCE Qty: 2 0RF Rx Instructions: as a single dose; may repeat once rivaroxaban 15 mg tablet 15 mg PO BID Qty: 41 0RF Rx Instructions: must administer with evening meal for 21 days then 20 mg orally daily HPI General Mode of arrival: ambulatory. Date/Time Provider Initiated Documentation: 07/30/24 15:55. Limitations to Documentation: no limitations. Information obtained by: patient, family and old records reviewed. HPI Narrative: HPI: This is a 78-year-old male patient with a past medical history significant for pulmonary fibrosis, pulmonary embolism on Xarelto, diabetes, hyperlipidemia, hypertension, and recent admission for hypoxic respiratory failure who is presenting for evaluation after a fall. The patient reports that he has felt quite weak since his discharge, and has had gradual worsening of his shortness of breath and change in his cough. He feels like he is coughing harder than typical, has not had chest pain but has noted a subjective fever. The patient states that he was getting up from his bed to walk to the bathroom, and sustained a fall when his legs gave out from under him. He landed on his right knee and right shoulder, did not strike his head and did not lose consciousness. He states that prior to this event he did not experience any chest pain, dizziness, or loss of consciousness. He typically ambulates with a walker at home. He had difficulty bearing weight on his right leg due to his knee pain, and was transported to the hospital for evaluation. Exam: Gen: Awake and alert, in no apparent distress HEENT: Non-icteric sclera, pupils equal and reactive bilaterally, no head pain or evidence of external trauma Neck: Supple, no C-spine tenderness to palpation, no step Lungs: No apparent respiratory distress, mild tachypnea appreciated, the patient has a frequent hacking cough without sputum production, is noted to be hypoxic on room air, states that he does not use oxygen in the home environment. Lung sounds with diffuse crackles, no wheezes, rhonchi, rales CV: Appears well perfused, heart with regular rate and rhythm, strong distal pulses Abdomen: Non-distended MSK: Moves 4 extremities without apparent limitation in ROM. The patient has tenderness with range of motion of the shoulder but no limitation of the right shoulders range of motion, no tenderness to palpation, no deformity or external signs of trauma. Chest: Clavicles are stable to compression and without deformity or crepitus. T and L-spine without step-offs or tenderness, pelvis stable to AP compression. The patient has tenderness to palpation of the medial aspect of the right knee without decreased range of motion, overlying skin change, or deformity. Skin: Visualized skin without rashes, cyanosis. Neuro: No obvious focal deficits or facial asymmetry. 5 out of 5 strength x 4 extremities, speaks in full, clear sentences. Psych: Appropriate for situation. MDM: This is a 78-year-old male patient presenting for evaluation after a fall. My differential includes but is not limited to intracranial hemorrhage due to his anticoagulant use, certainly considered spinal fracture, fracture, dislocation, and contusion specifically of the right shoulder and right knee. Regarding his shortness of breath, weakness, and hypoxia I certainly considered pneumonia, URI, exacerbation of his known emphysema or pulmonary fibrosis. The patient does have a known pulmonary embolism, and I certainly considered treatment failure in this patient who has been compliant with his Xarelto. I considered metabolic and electrolyte derangement, kidney injury, anemia. We will obtain laboratory studies to include CBC, CMP, magnesium, troponin, Fluvid, and will proceed with CT scan to include CT head and C-spine, CT PA chest, and x-ray of the affected right shoulder and knee. ED Course: I reviewed the patient's laboratory studies, which show no leukocytosis, anemia or thrombocytopenia. Chemistry panel without significant electrolyte derangements, evidence of kidney dysfunction or liver disease. Troponin was negative and his COVID test was positive. CT imaging shows no evidence of intracranial hemorrhage, skull fracture, nor fracture or osseous injury of the near shoulder. His CT chest does not show any acute consolidations concerning for pneumonia, does redemonstrate his known fibrosis and COPD, shows interval improvement in his pulmonary embolism. EKG was obtained, which shows a sinus rhythm with evidence of old infarct but no acute STEMI noted. The patient remains hypoxic on room air and I am concerned that he will not succeed in the outpatient environment given his lack of home O2. I did discuss this with the patient who is amenable to admission, and he was graciously accepted to the hospitalist service for ongoing workup and management of his hypoxic respiratory failure due to COVID-19. Patient remained hemodynamically appropriate while under my care, was transferred from this department without incident. Shelly Culp MD Related Data Home Medications ?Medication ?Instructions ?Recorded ?Confirmed inhalational spacing device (Space ##1 05/27/15 07/17/24 Chamber Plus) infliximab 100 mg intravenous 1,000 mg IV .[id number] 05/31/15 07/30/24 solution (Remicade) acetaminophen 650 mg 650 mg PO Q8H PRN Pain ##20 04/30/17 07/30/24 tablet,extended release epinephrine 0.3 mg/0.3 mL 0.3 mg (0.3 mL) IM ONCE #2 ea 03/12/21 07/30/24 injection, auto-injector aspirin 81 mg chewable tablet 81 mg PO DAILY 05/27/21 07/30/24 amlodipine 5 mg tablet 5 mg PO BID #180 tabs 03/18/23 07/30/24 lorazepam 1 mg tablet (Ativan) 1 mg PO DAILY PRN anxiety #2 tabs 05/14/23 07/30/24 blood-glucose meter (FreeStyle #1 ea 06/01/23 07/17/24 Lite Meter kit) nitroglycerin 0.4 mg sublingual 0.4 mg sublingual PRN #25 tab-caps 06/23/23 07/30/24 tablet (Nitrostat) blood sugar diagnostic (Contour #300 ea 07/27/23 07/17/24 Test Strips) dulaglutide 0.75 mg/0.5 mL 0.75 mg (0.5 mL) subcut QWEEK #6 mL 09/22/23 07/30/24 subcutaneous pen injector (Trulicity) finasteride 5 mg tablet 5 mg PO DAILY #90 tabs 09/22/23 07/30/24 fluticasone propionate 50 2 spray NS DAILY #1 g 09/22/23 07/30/24 mcg/actuation nasal spray,suspension insulin glargine 100 unit/mL (3 47 unit (0.47 mL) subcut HS #45 mL 09/22/23 07/30/24 mL) subcutaneous pen lancets 28 gauge (TRUEplus Lancets) #100 ea 09/25/23 07/17/24 pantoprazole 40 mg tablet,delayed 40 mg PO DAILY #90 tabs 10/16/23 07/30/24 release albuterol sulfate 90 mcg/actuation 2 inh inhalation Q6H PRN 12/27/23 07/30/24 aerosol inhaler (Ventolin HFA) bronchospasm #8.5 grams bupropion HCl 150 mg tablet,12 hr 150 mg PO BID #180 tabs 02/28/24 07/30/24 sustained-release loratadine 10 mg capsule 10 mg PO DAILY PRN 03/06/24 07/30/24 umeclidinium 62.5 mcg-vilanterol 1 inh inhalation DAILY #60 ea 03/06/24 07/30/24 25 mcg/actuation powdr for inhalation (Anoro Ellipta) clopidogrel 75 mg tablet (Plavix) 75 mg PO DAILY #90 tabs 04/11/24 07/30/24 docusate sodium 100 mg capsule 100 mg PO DAILY #90 caps 04/11/24 07/30/24 (Colace) sildenafil 100 mg tablet 100 mg PO DAILY PRN sexual 05/02/24 07/30/24 activity #5 tabs mupirocin 2 % topical ointment 1 applic topical TID #50 grams 05/10/24 07/30/24 atorvastatin 80 mg tablet 80 mg PO QHS #90 tabs 05/23/24 07/30/24 ezetimibe 10 mg tablet 10 mg PO DAILY #90 tabs 05/23/24 07/30/24 gabapentin 300 mg capsule See Rx Instructions .Route 06/03/24 07/30/24 .COMPLEX #90 caps losartan 100 mg tablet 100 mg PO DAILY #90 tabs 06/29/24 07/30/24 pen needle, diabetic 33 gauge x #100 ea 06/29/24 07/17/24 (Advocate Pen Needle) rivaroxaban 15 mg tablet 15 mg PO BID #41 tabs 07/03/24 07/30/24 tamsulosin 0.4 mg capsule 0.8 mg (2 x 0.4 mg) PO DAILY #180 07/10/24 07/30/24 caps rivaroxaban 20 mg tablet 20 mg PO DAILY #90 tabs 07/17/24 07/30/24 Previous Rx's ?Medication ?Instructions ?Recorded acetaminophen 650 mg 650 mg PO Q8H PRN Pain ##20 04/30/17 tablet,extended release epinephrine 0.3 mg/0.3 mL 0.3 mg (0.3 mL) IM ONCE #2 ea 03/12/21 injection, auto-injector amlodipine 5 mg tablet 5 mg PO BID #180 tabs 03/18/23 lorazepam 1 mg tablet (Ativan) 1 mg PO DAILY PRN anxiety #2 tabs 05/14/23 blood-glucose meter (FreeStyle #1 ea 06/01/23 Lite Meter kit) nitroglycerin 0.4 mg sublingual 0.4 mg sublingual PRN #25 tab-caps 06/23/23 tablet (Nitrostat) blood sugar diagnostic (Contour #300 ea 07/27/23 Test Strips) dulaglutide 0.75 mg/0.5 mL 0.75 mg (0.5 mL) subcut QWEEK #6 mL 09/22/23 subcutaneous pen injector (Trulicity) finasteride 5 mg tablet 5 mg PO DAILY #90 tabs 09/22/23 fluticasone propionate 50 2 spray NS DAILY #1 g 09/22/23 mcg/actuation nasal spray,suspension insulin glargine 100 unit/mL (3 47 unit (0.47 mL) subcut HS #45 mL 09/22/23 mL) subcutaneous pen lancets 28 gauge (TRUEplus Lancets) #100 ea 09/25/23 pantoprazole 40 mg tablet,delayed 40 mg PO DAILY #90 tabs 10/16/23 release albuterol sulfate 90 mcg/actuation 2 inh inhalation Q6H PRN 12/27/23 aerosol inhaler (Ventolin HFA) bronchospasm #8.5 grams bupropion HCl 150 mg tablet,12 hr 150 mg PO BID #180 tabs 02/28/24 sustained-release umeclidinium 62.5 mcg-vilanterol 1 inh inhalation DAILY #60 ea 03/06/24 25 mcg/actuation powdr for inhalation (Anoro Ellipta) clopidogrel 75 mg tablet (Plavix) 75 mg PO DAILY #90 tabs 04/11/24 docusate sodium 100 mg capsule 100 mg PO DAILY #90 caps 04/11/24 (Colace) sildenafil 100 mg tablet 100 mg PO DAILY PRN sexual 05/02/24 activity #5 tabs mupirocin 2 % topical ointment 1 applic topical TID #50 grams 05/10/24 atorvastatin 80 mg tablet 80 mg PO QHS #90 tabs 05/23/24 ezetimibe 10 mg tablet 10 mg PO DAILY #90 tabs 05/23/24 gabapentin 300 mg capsule See Rx Instructions .Route 06/03/24 .COMPLEX #90 caps losartan 100 mg tablet 100 mg PO DAILY #90 tabs 06/29/24 pen needle, diabetic 33 gauge x #100 ea 06/29/24 5/32 (Advocate Pen Needle) rivaroxaban 15 mg tablet 15 mg PO BID #41 tabs 07/03/24 tamsulosin 0.4 mg capsule 0.8 mg (2 x 0.4 mg) PO DAILY #180 07/10/24 caps rivaroxaban 20 mg tablet 20 mg PO DAILY #90 tabs 07/17/24 Allergies Allergy/AdvReac Type Severity Reaction Status Date / Time venom-honey bee (bee venom Allergy Severe ANAPHYLAXSI Verified 07/30/24 16:05 (honey bee)) S Sulfa (Sulfonamide Allergy Unknown unknown Verified 07/30/24 16:05 Antibiotics) leflunomide (From Arava) AdvReac Intermediate DIARRHEA Verified 07/30/24 16:05 metformin AdvReac Intermediate diarrhea Verified 07/30/24 16:05 General Stated Complaint: SOB STAR: 3 Course Vital Signs Vital signs: Vital Signs Temperature 37.3 C 07/30/24 16:01 Pulse 86 07/30/24 16:01 Respiratory Rate 24 07/30/24 16:01 Blood Pressure 137/73 07/30/24 16:01 Pulse Oximetry 84 L 07/30/24 16:01 Temperature 37.3 C 07/30/24 16:01 Temperature Source Oral 07/30/24 16:01 Pulse 86 07/30/24 16:01 Respiratory Rate 24 07/30/24 16:01 Blood Pressure 137/73 07/30/24 16:01 Blood Pressure Position Sitting 07/30/24 16:01 Pulse Oximetry 84 L 07/30/24 16:01 Oxygen Delivery Method Room Air 07/30/24 16:01 Oxygen Flow Rate 0 07/30/24 16:01 Pain Level 4 07/30/24 16:01 Medical Decision Making Quality:SDOH Health Related Social Needs: Health related social needs details difficulty obtaining meds due to cost Critical Care Time Critical Care Time Critical Care Time: Yes Total Critical Care Time: 45 Attestation: Upon my evaluation, this patient had a high probability of imminent or life-threatening deterioration due to hypoxic respiratory failure, which required my direct attention, intervention, and personal management. I have personally provided 45 minutes of critical care time exclusive of time spent on separately billable procedures. Time includes review of laboratory data, radiology results, discussion with consultants, and monitoring for potential decompensation. Interventions were performed as documented above. Shelly Culp MD [facility] All Active Problems (Updated 07/30/24 @ 19:31 by Shelly Culp MD) Fall (Acute) COVID-19 (Acute) Acute hypoxic respiratory failure (Acute) COVID (Acute) Pulmonary embolism (Chronic) Chronic otitis externa of both ears (Acute) Acute serous otitis media, right ear (Acute) Acute otitis externa of right ear (Acute) Internal nasal lesion (Acute) Pulmonary fibrosis (Acute) Acute exacerbation of chronic obstructive pulmonary disease (Acute) Acute otitis externa of left ear (Acute) Hypertension (Chronic) same meds, good BP here today Ear pain, right (Acute) Impetigo (Acute) [place] (dyspnea on exertion) (Acute) Cellulitis (Acute) Epistaxis (Acute) Nasal vestibulitis (Acute) Sensorineural hearing loss, bilateral (Acute) Impacted cerumen, bilateral (Acute) Weight loss (Acute) Elevated PSA, between 10 and less than 20 ng/ml (Acute) Chronic obstructive lung disease (Chronic) pulmonary fibrosis on chest xray ongoing tobacco use add back budesonide nebs to see if we can improve cough Diabetes mellitus (Chronic 05/05/13) check A1c and creat Gastroesophageal reflux disease (Chronic) Hyperlipidemia (Chronic 05/05/13) Kidney stone (Acute 09/14/14) recurrent x3 on left [facility] Urology 10/12/16-[facility]; F/U Dr. Fair Male erectile disorder (Acute 08/29/13) Palpitations (Acute 11/04/12) multiple PVCs, bradycardia (2013) ([facility], Dr Abraham, echo normal LVEF and stress test neg ischemia) Rheumatoid arthritis (Chronic 05/05/13) [facility], Dr Leon Smoker (Chronic) Tubular adenoma (Acute) 11/20 COLONOSCOPY: ONE TUBULOVILLOUS ADENOMA & TWO TUBULAR ADENOMAS. 05/22/13: DR. Mateusz COPELAND:TUBULAR ADENOMAS 11/13/16: Dr Jian Crump: tublular and tubulovillous adenomas Erectile dysfunction (Chronic) Lipoma (Acute) Depressive disorder (Chronic) RCA occlusion (Acute) 05/25/19 [facility] Bradycardia (Acute) Cigarette smoker (Acute) Fatigue (Acute) Chronic knee pain (Acute) Arthritis of knee, right (Acute) Bilateral hip joint arthritis (Acute) Degenerative lumbar spinal stenosis (Acute) Adenomatous polyps (Acute) Serrated adenoma of colon (Acute ~07/2020) Mallet deformity of left ring finger (Acute 11/30/20) with avulsion fracture Anaphylaxis due to hymenoptera venom (Acute) Cellulitis of ear (Acute) Aortic atherosclerosis (Acute) Emphysema lung (Acute) Tubular adenoma of colon (Acute) COPD with acute exacerbation (Acute) 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) Cardiomyopathy (Acute) Otitis externa, left (Acute) Medical History Right shoulder pain COPD exacerbation Pneumonia Eczema Hypoxemia Sepsis COPD (chronic obstructive pulmonary disease) BPH loc w urin obs/LUTS Myocardial infarction 2020 x2 stents CVA (cerebral vascular accident) (11/21/17) ASCVD (arteriosclerotic cardiovascular disease) (05/05/13) 2 NEW STENTS 04/22 H/O IMI; angioplasty and stent; [facility] , 02/11; CVA/TIA Surgical History Stented coronary artery 05/25/19 [facility]; s/p stent of old stent-KB History of incisional hernia repair History of knee surgery RESECTION ANGIOFIBROMA;RIGHT FOOT 02/04/18 KNEE REPAIR RIGHT Hernia Repair, Incisional Excision, Lipoma (05/19/16) posterior neck Colostomy (~2006) TEMP W/ REVISION Colonoscopy - MAC (11/13/16) Colonoscopy - MAC (05/16/13) Family History Mother Essential hypertension Heart disease Stroke Father Stroke Brother Heart disease Family History Diabetes Heart disease Cancer Brother No problems noted. Brother No problems noted. Sister No problems noted. Sister Alcohol abuse Social History Smoking/Tobacco Use Status: Current every day Tobacco Type: cigarettes Tobacco: How many years used: 60 Quit status: has quit before Second Hand Exposure: Yes Smoking risk assessment performed?: Yes Alcohol Intake: former Drug use: Never Substance use type: does not use Household members: family Housing: house Communication Needs: None Do you need help understanding health information?: Rarely Pets and animals: Yes Pets and animals: cat(s) Sexually active: No Current gender identity: male What is your relationship status?: How often do you talk on the phone with friends or family?: three or more times per week How often do you get together with friends or relatives?: twice per week How often do you attend hoahaoism or nondenominational services?: decline to answer Do you belong to any clubs or organized social groups?: no Panel score (0-1 are the most socially isolated patients): 1 What type of physical activity do you participate in: walking Duration: < 15 minutes/day Frequency: 1-2 times per week Monika/Adventism: None Special monika needs: No Seatbelt use: sometimes Helmet use: No Drive intox or ride w/intox medical driver: No Do you feel safe at home: Yes Do you feel safe in your relationship?: Yes Additional Social history: Lives with son
[2024-07-30] MEDS: Acetaminophen 500 MG TAB 1000 MG PO (16:12)
[2024-07-30 16:19] LABS: HCT 44.7 % (40.0-50.0); HGB 14.8 g/dL (13.5-17.5); MCH 31.9 pg (27.0-33.0); MCHC 33.1 % (32.0-36.0); MCV 96 fL (80-95); Platelet Count 192 10^3/uL (130-400); RBC 4.64 10^6/uL (4.36-5.78); RDW-SD 49.5 fL
[2024-07-30 16:31] LABS: INR 1.2 (0.9-1.1); Prothrombin Time 11.9 sec (9.1-11.1)
[2024-07-30 16:37] LABS: ALT 22 U/L (16-63); AST 14 U/L (15-37); Albumin 3.3 g/dL (3.4-5.0); Alkaline Phosphatase 99 U/L (46-116); Anion Gap 8.2 mmol/L (3-11); BUN 16 mg/dL (7-18); Bilirubin, Total 0.56 mg/dL (0.2-1.0); CO2 28.8 mmol/L (21.0-32.0); CREATININE 1.2 mg/dL (0.70-1.30); Calcium 8.8 mg/dL (8.5-10.1); Chloride 105 mmol/L (98-107); Estimated GFR 62.67 (mL/min/1.73m2); Glucose 82 mg/dL (74-106); Magnesium 1.8 mg/dL (1.8-2.4); Sodium 142 mmol/L (136-145); Total Protein 6.7 g/dL (6.4-8.2); Troponin I 19 ng/L (<or=76)
[2024-07-30 16:44] LABS: Absolute Eosinophil Count 0.31 10^3/uL (0.0-0.7); Absolute Lymphocyte Count 0.92 10^3/uL (1.2-3.4); Absolute Monocyte Count 1.62 10^3/uL (0.1-0.8); Absolute Neutrophil Count 4.85 10^3/uL (1.2-6.7); Diff Comment Manual Differential; RBC Morphology Normal
[2024-07-30] MEDS: Omnipaque 350 MG/ML 100 ML BTL IJ (16:51)
[2024-07-30] MEDS: Normal Saline - Diluent 50 ML VIAL IJ (16:53)
[2024-07-30 17:57] LABS: Troponin I 21 ng/L (<or=76)
[2024-07-30 18:21] LABS: Influenza A PCR Negative (Negative); Influenza B PCR Negative (Negative); RSV PCR Negative (Negative)
--- NOTE | 2024-07-30 18:25 | DI.VRAD_ITS ---
PROCEDURE INFORMATION: Exam: CT Head Without Contrast Exam date and time: 07/30/2024 4:50 PM Age: 78 years old Clinical indication: Injury or trauma; Blunt trauma (contusions or hematomas); Patient HX: Fall, on anticoagulants TECHNIQUE: Imaging protocol: Computed tomography of the head without contrast. COMPARISON: CT HEAD WO 02/27/2023 12:06 AM FINDINGS: Brain: Cerebral volume loss noted. Scattered areas of decreased attenuation in the deep periventricular white matter consistent with small vessel ischemic change. No evidence for acute intracranial hemorrhage. Cerebral ventricles: No ventriculomegaly. Paranasal sinuses: Visualized sinuses are unremarkable. No fluid levels. Mastoid air cells: Visualized mastoid air cells are well aerated. Bones: Unremarkable. No acute fracture. Soft tissues: Unremarkable. IMPRESSION: Senescent changes noted. No acute intracranial abnormality. PROCEDURE INFORMATION: Exam: CT Cervical Spine Without Contrast Exam date and time: 07/30/2024 4:50 PM Age: 78 years old Clinical indication: Injury or trauma; Blunt trauma (contusions or hematomas); Patient HX: Fall, on anticoagulants TECHNIQUE: Imaging protocol: Computed tomography of the cervical spine without contrast. COMPARISON: CT HEAD CERVICAL SPINE WO 10/05/2022 7:13 PM FINDINGS: Bones: No acute fracture. Normal alignment. No significant disc bulge or herniation. No severe spinal canal stenosis. No significant neural foraminal narrowing. Lungs: COPD noted in the lung apices. Vasculature: Bilateral calcified carotid plaque. Soft tissues: Unremarkable. IMPRESSION: No evidence for acute posttraumatic abnormality. Dictated and Authenticated by: Shalonda Grant MD. Ordering:MARIPOSA Rodriguez MD
[2024-07-30 18:41] LABS: COVID-19 PCR Positive (Negative); Source Nasopharynx
--- NOTE | 2024-07-30 19:14 | W.PM.HP.N ---
Date of service: 07/30/24 Time of Service: 19:14 Assessment and Plan Assessment and plan (1) COVID: Status: Acute Assessment and plan: COVID. While there is a number of potentially conflating matters impacting hypoxia -- PE, COPD, ILD -- I don't see evidence of these being acutely involved and I think it probably safe to ascribe this all to COVID, and without sumperimposed bacterial pneumonia. Will treat with Remdesivir and steroids, along with supplemental O2 as needed for sats >90. Usual meds as is otherwise, plus SS coverage for DM in setting of steroid use. Reviewed ADs, requests Full Code. 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 Had COVID vaccine last month. here with several days of dry cough, runny nose, CASTELLANOS, and one day of generalized weakness. Immediate precipitant of visit was fall due to weakness, no head trauma or LOC, struck right knee and shoulder. In ER findings of note for O2 sats in 80s (mid 90s on 2L), no fever, white count 7.2 with lymphopenia; CT chest showing improvement in known clot burden, baseline signs of COPD, no infiltrate. Imaging of head, neck, shoulder and knee without acute findings. COVID positive. I was asked to evaluate for admission. No CP. Denies fever, chills or SOB. Review of Systems Narrative: per HPI PFSH All Active Problems (Updated 07/30/24 @ 19:24 by Ty Moore MD) COVID (Acute) Pulmonary embolism (Chronic) Chronic otitis externa of both ears (Acute) Acute serous otitis media, right ear (Acute) Acute otitis externa of right ear (Acute) Internal nasal lesion (Acute) Pulmonary fibrosis (Acute) Acute exacerbation of chronic obstructive pulmonary disease (Acute) Acute otitis externa of left ear (Acute) Hypertension (Chronic) same meds, good BP here today Ear pain, right (Acute) Impetigo (Acute) LANGSTON (dyspnea on exertion) (Acute) Cellulitis (Acute) Epistaxis (Acute) Nasal vestibulitis (Acute) Sensorineural hearing loss, bilateral (Acute) Impacted cerumen, bilateral (Acute) Weight loss (Acute) Elevated PSA, between 10 and less than 20 ng/ml (Acute) Chronic obstructive lung disease (Chronic) pulmonary fibrosis on chest xray ongoing tobacco use add back budesonide nebs to see if we can improve cough Diabetes mellitus (Chronic 05/05/13) check A1c and creat Gastroesophageal reflux disease (Chronic) Hyperlipidemia (Chronic 05/05/13) Kidney stone (Acute 09/14/14) recurrent x3 on [place] [facility] [place]; F/U Dr. Fair Male erectile disorder (Acute 08/29/13) Palpitations (Acute 11/04/12) multiple PVCs, bradycardia (2013) ([facility], echo normal LVEF and stress test neg ischemia) Rheumatoid arthritis (Chronic 05/05/13) [facility] Leon Smoker (Chronic) Tubular adenoma (Acute) 11/20 COLONOSCOPY: ONE TUBULOVILLOUS ADENOMA & TWO TUBULAR ADENOMAS. 05/22/13: DR. Mateusz COPELAND:TUBULAR ADENOMAS 11/13/16: Dr Jian Crump: tublular and tubulovillous adenomas Erectile dysfunction (Chronic) Lipoma (Acute) Depressive disorder (Chronic) RCA occlusion (Acute) 05[place]25/[place] [facility] Bradycardia (Acute) Cigarette smoker (Acute) Fatigue (Acute) Chronic knee pain (Acute) Arthritis of knee, right (Acute) Bilateral hip joint arthritis (Acute) Degenerative lumbar spinal stenosis (Acute) Adenomatous polyps (Acute) Serrated adenoma of colon (Acute ~07/2020) Mallet deformity of left ring finger (Acute 11/30/20) with avulsion fracture Anaphylaxis due to hymenoptera venom (Acute) Cellulitis of ear (Acute) Aortic atherosclerosis (Acute) Emphysema lung (Acute) Tubular adenoma of colon (Acute) COPD with acute exacerbation (Acute) 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) Cardiomyopathy (Acute) Otitis externa, left (Acute) Medical History Right shoulder pain COPD exacerbation Pneumonia Eczema Hypoxemia Sepsis COPD (chronic obstructive pulmonary disease) BPH loc w urin obs/LUTS Myocardial infarction 2020 x2 stents CVA (cerebral vascular accident) (11/21/17) ASCVD (arteriosclerotic cardiovascular disease) (05/05/13) 2 NEW STENTS 04/22 H/O IMI; angioplasty and stent; [place] , 02/11; CVA/TIA Surgical History Stented coronary artery 05/25/[place] [facility] s/p stent of old stent-KB History of incisional hernia repair History of knee surgery RESECTION ANGIOFIBROMA;RIGHT FOOT 02/04/18 KNEE REPAIR RIGHT Hernia Repair, Incisional Excision, Lipoma (05/19/16) posterior neck Colostomy (~2006) TEMP W/ REVISION Colonoscopy - MAC (11/13/16) Colonoscopy - MAC (05/16/13) Family History Mother Essential hypertension Heart disease Stroke Father Stroke Brother Heart disease Family History Diabetes Heart disease Cancer Brother No problems noted. Brother No problems noted. Sister No problems noted. Sister Alcohol abuse Social History Smoking/Tobacco Use Status: Current every day Tobacco Type: cigarettes Tobacco: How many years used: 60 Quit status: has quit before Second Hand Exposure: Yes Smoking risk assessment performed?: Yes Alcohol Intake: former Drug use: Never Substance use type: does not use Household members: family Housing: house Communication Needs: None Do you need help understanding health information?: Rarely Pets and animals: Yes Pets and animals: cat(s) Sexually active: No Current gender identity: male What is your relationship status?: How often do you talk on the phone with friends or family?: three or more times per week How often do you get together with friends or relatives?: twice per week How often do you attend sikhism or presybeterian services?: decline to answer Do you belong to any clubs or organized social groups?: no Panel score (0-1 are the most socially isolated patients): 1 What type of physical activity do you participate in: walking Duration: < 15 minutes/day Frequency: 1-2 times per week Monika/Confucianism: None Special monika needs: No Seatbelt use: sometimes Helmet use: No Drive intox or ride w/intox [id number] tank driver: No Do you feel safe at home: Yes Do you feel safe in your relationship?: Yes Additional Social history: Lives with son Meds Allergies and Home Medications Allergies Allergy/AdvReac Type Severity Reaction Status Date / Time venom-honey bee (bee venom Allergy Severe ANAPHYLAXSI Verified 07/30/24 16:05 (honey bee)) S Sulfa (Sulfonamide Allergy Unknown unknown Verified 07/30/24 16:05 Antibiotics) leflunomide (From Arava) AdvReac Intermediate DIARRHEA Verified 07/30/24 16:05 metformin AdvReac Intermediate diarrhea Verified 07/30/24 16:05 Home Medications ?Medication ?Instructions ?Recorded ?Confirmed ?Type inhalational spacing device (Space ##1 05/27/15 07/17/24 History Chamber Plus) infliximab 100 mg intravenous 1,000 mg IV .[id number] 05/31/15 07/30/24 History solution (Remicade) acetaminophen 650 mg 650 mg PO Q8H PRN Pain ##20 04/30/17 07/30/24 Rx tablet,extended release epinephrine 0.3 mg/0.3 mL 0.3 mg (0.3 mL) IM ONCE #2 ea 03/12/21 07/30/24 Rx injection, auto-injector aspirin 81 mg chewable tablet 81 mg PO DAILY 05/27/21 07/30/24 History amlodipine 5 mg tablet 5 mg PO BID #180 tabs 03/18/23 07/30/24 Rx lorazepam 1 mg tablet (Ativan) 1 mg PO DAILY PRN anxiety #2 tabs 05/14/23 07/30/24 Rx blood-glucose meter (FreeStyle #1 ea 06/01/23 07/17/24 Rx Lite Meter kit) nitroglycerin 0.4 mg sublingual 0.4 mg sublingual PRN #25 tab-caps 06/23/23 07/30/24 Rx tablet (Nitrostat) blood sugar diagnostic (Contour #300 ea 07/27/23 07/17/24 Rx Test Strips) dulaglutide 0.75 mg/0.5 mL 0.75 mg (0.5 mL) subcut QWEEK #6 mL 09/22/23 07/30/24 Rx subcutaneous pen injector (Trulicity) finasteride 5 mg tablet 5 mg PO DAILY #90 tabs 09/22/23 07/30/24 Rx fluticasone propionate 50 2 spray NS DAILY #1 g 09/22/23 07/30/24 Rx mcg/actuation nasal spray,suspension insulin glargine 100 unit/mL (3 47 unit (0.47 mL) subcut HS #45 mL 09/22/23 07/30/24 Rx mL) subcutaneous pen lancets 28 gauge (TRUEplus Lancets) #100 ea 09/25/23 07/17/24 Rx pantoprazole 40 mg tablet,delayed 40 mg PO DAILY #90 tabs 10/16/23 07/30/24 Rx release albuterol sulfate 90 mcg/actuation 2 inh inhalation Q6H PRN 12/27/23 07/30/24 Rx aerosol inhaler (Ventolin HFA) bronchospasm #8.5 grams bupropion HCl 150 mg tablet,12 hr 150 mg PO BID #180 tabs 02/28/24 07/30/24 Rx sustained-release loratadine 10 mg capsule 10 mg PO DAILY PRN 03/06/24 07/30/24 History umeclidinium 62.5 mcg-vilanterol 1 inh inhalation DAILY #60 ea 03/06/24 07/30/24 Rx 25 mcg/actuation powdr for inhalation (Anoro Ellipta) clopidogrel 75 mg tablet (Plavix) 75 mg PO DAILY #90 tabs 04/11/24 07/30/24 Rx docusate sodium 100 mg capsule 100 mg PO DAILY #90 caps 04/11/24 07/30/24 Rx (Colace) sildenafil 100 mg tablet 100 mg PO DAILY PRN sexual 05/02/24 07/30/24 Rx activity #5 tabs mupirocin 2 % topical ointment 1 applic topical TID #50 grams 05/10/24 07/30/24 Rx atorvastatin 80 mg tablet 80 mg PO QHS #90 tabs 05/23/24 07/30/24 Rx ezetimibe 10 mg tablet 10 mg PO DAILY #90 tabs 05/23/24 07/30/24 Rx gabapentin 300 mg capsule See Rx Instructions .Route 06/03/24 07/30/24 Rx .COMPLEX #90 caps losartan 100 mg tablet 100 mg PO DAILY #90 tabs 06/29/24 07/30/24 Rx pen needle, diabetic 33 gauge x #100 ea 06/29/24 07/17/24 Rx 5/32 (Advocate Pen Needle) rivaroxaban 15 mg tablet 15 mg PO BID #41 tabs 07/03/24 07/30/24 Rx tamsulosin 0.4 mg capsule 0.8 mg (2 x 0.4 mg) PO DAILY #180 07/10/24 07/30/24 Rx caps rivaroxaban 20 mg tablet 20 mg PO DAILY #90 tabs 07/17/24 07/30/24 Rx Exam Narrative Exam Narrative: 137/73, 86, 37.3, 18, 84 (last recorded, during visit 93-95%). HEENT atraumatic; neck supple; lungs bronchial BS, clear; heart RRR; abdomen soft and NT; extremities w/o edema; neuro Ox3, moves all 4s Results Labs 07/30/24 16:07 07/30/24 16:07 Labs: Laboratory Results - last 24 hr 07/30/24 07/30/24 07/30/24 16:07 17:28 17:37 WBC 7.70 RBC 4.64 Hgb 14.8 Hct 44.7 MCV 96 H MCH 31.9 MCHC 33.1 RDW 14.0 Plt Count 192 MPV 11.0 Immature Gran % 0.0 Neutrophils % 63.0 Lymphocytes % 12.0 Monocytes % 21.0 Eosinophils % 4.0 Basophils % 0.0 Nucleated RBC % 0.0 Absolute Neutrophils 4.85 Absolute Lymphocytes 0.92 L Absolute Monocytes 1.62 H Absolute Eosinophils 0.31 Absolute Basophils 0.00 RBC Morphology Normal PT 11.9 H INR 1.2 H Sodium 142 Potassium 4.0 Chloride 105 Carbon Dioxide 28.8 Anion Gap 8.2 BUN 16 Creatinine 1.2 Est GFR (CKD-EPI 2020) 62.67 Glucose 82 Calcium 8.8 Magnesium 1.8 Total Bilirubin 0.56 AST 14 L ALT 22 Alkaline Phosphatase 99 Troponin I 19 21 Total Protein 6.7 Albumin 3.3 L COVID-19 Source Nasopharynx SARS-CoV-2 (PCR) Positive A Influenza Type A (PCR) Negative Influenza Type B (PCR) Negative RSV (PCR) Negative Last Vital Signs Temp 37.3 C 07/30/24 16:01 Pulse 86 07/30/24 16:01 Resp 18 07/30/24 16:15 BP 137/73 07/30/24 16:01 13Pulse Ox 84 L 07/30/24 16:01 Time Spent Time spent with Patient: 40-54 minutes Time was spent: preparing to see the patient(eg.review tests), obtaining and/or reviewing separately otained hiistory, ordering medications,tests, procedures, referring, communicating with other health toddler caregiver and indepentently interpreting results
[2024-07-30] MEDS: Dexamethasone 4 MG TAB 6 MG PO (22:24)
[2024-07-30] MEDS: buPROPion-CR 150 MG TABCR PO (22:24)
[2024-07-30] MEDS: Gabapentin 300 MG CAP PO (22:25)
[2024-07-30] MEDS: amLODIPine 5 MG TAB PO (22:25)
[2024-07-30] MEDS: Atorvastatin 40 MG TAB 80 MG PO (22:25)
[2024-07-30] MEDS: Normal Saline Flush 10 ML SYR IVP (22:26)
[2024-07-30] MEDS: Insulin Glargine 300 UNITS/3 ML PEN 36 UNITS SC (23:42)
[2024-07-31] VITALS (9 sets, daily range): BP systolic 124–168; BP diastolic 65–84; PULSE 55–79; RESP 16–24; TEMP 36.5–36.9; O2SAT 89–96
[2024-07-31] MEDS: Normal Saline Flush 10 ML SYR IVP ×3 (00:05→20:12)
--- NOTE | 2024-07-31 03:04 | W.PC.ACHO ---
Registration Status: Primary Language: Preferred Language: ED Information & Data Chief Complaint SOB 07/30/24 16:15 Chief Complaint SOB 07/30/24 16:07 Triage Note increased weakness, SOB, and 07/30/24 16:01 coughing. 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 Medical / Surgical History (Last Reviewed 07/30/24 @ 19:22 by Ty Moore MD) Right shoulder pain COPD exacerbation Pneumonia Eczema Hypoxemia Sepsis COPD (chronic obstructive pulmonary disease) BPH loc w urin obs/LUTS Myocardial infarction CVA (cerebral vascular accident) (11/21/17) ASCVD (arteriosclerotic cardiovascular disease) (05/05/13) (Last Reviewed 07/30/24 @ 19:22 by Ty Moore MD) Stented coronary artery History of incisional hernia repair History of knee surgery RESECTION KNEE REPAIR Hernia Repair, Incisional Excision, Lipoma (05/19/16) Colostomy (~2006) Colonoscopy - MAC (11/13/16) Colonoscopy - MAC (05/16/13) Most Recent Vital Signs Temperature 36.6 C 07/31/24 01:38 Temperature Source Temporal Artery Scan 07/31/24 01:38 Pulse 63 07/31/24 01:38 Pulse Rhythm Irregular 07/30/24 21:07 Pulse 55 L 07/30/24 20:40 Respiratory Rate 24 07/31/24 01:38 Respiratory Effort Short of Breath, Incrsd Work of Breathing 07/30/24 21:07 Respiratory Depth Normal 07/30/24 21:07 Respiratory Pattern Normal 07/30/24 21:07 Blood Pressure 166/83 H 07/31/24 01:38 Blood Pressure Mean 106 07/30/24 20:00 Blood Pressure Position Sitting 07/30/24 16:01 Pulse Oximetry 94 07/31/24 01:38 Oxygen Delivery Method Nasal Cannula 07/31/24 01:38 Oxygen Flow Rate 2 07/31/24 01:38 Pain Level 0 07/31/24 01:38 Comment admitted for SOB/hypoxia, +covid 07/30/24 21:07 Comment on 2 lpm O2 07/30/24 16:30 Allergies venom-honey bee (bee venom (honey bee)) Allergy (Severe, Verified 07/30/24 16:05) ANAPHYLAXSIS Sulfa (Sulfonamide Antibiotics) Allergy (Unknown, Verified 07/30/24 16:05) unknown leflunomide (From Arava) Adverse Reaction (Intermediate, Verified 07/30/24 16:05) DIARRHEA metformin Adverse Reaction (Intermediate, Verified 07/30/24 16:05) diarrhea Precautions Isolation Standard precaution 07/30/24 16:15 Active Medications Generic Name Dose Route Start Last Admin Trade Name Freq PRN Reason Stop Dose Admin Amlodipine Besylate 5 mg 07/30/24 21:30 07/30/24 22:25 Amlodipine 5 Mg Tab PO 5 mg BID JOSE CARLOS Administration Atorvastatin Calcium 80 mg 07/30/24 21:30 07/30/24 22:25 Atorvastatin 40 Mg Tab PO 80 mg QPM JOSE CARLOS Administration Bupropion HCl 150 mg 07/30/24 21:30 07/30/24 22:24 Bupropion-Cr 150 Mg Tabcr PO 150 mg BID JOSE CARLOS Administration Dexamethasone 6 mg 07/30/24 21:30 07/30/24 22:24 Dexamethasone 4 Mg Tab PO 6 mg HS JOSE CARLOS Administration Gabapentin 300 mg 07/30/24 22:00 07/30/24 22:25 Gabapentin 300 Mg Cap PO 300 mg TID JOSE CARLOS Administration Insulin Glargine 36 units 07/30/24 21:30 07/30/24 23:42 Insulin Glargine 300 Units/3 Ml Pen SC 36 units HS JOSE CARLOS Administration Iohexol 100 ml 07/30/24 17:00 07/30/24 16:51 Omnipaque 350 Mg/Ml 100 Ml Btl IJ 08/29/24 23:59 100 ml DIRECTED JOSE CARLOS Administration Sodium Chloride 0 ml 07/30/24 16:04 07/31/24 00:05 Normal Saline Flush 10 Ml Syr IVP 10 ml PRN PRN Administration Sodium Chloride 0 ml 07/30/24 20:00 07/30/24 22:26 Normal Saline Flush 10 Ml Syr IVP 10 ml BID JOSE CARLOS Administration Sodium Chloride 50 ml 07/30/24 17:00 07/30/24 16:53 Normal Saline - Diluent 50 Ml Vial IJ 50 ml .FOR DI USE JOSE CARLOS Administration IV IV Catheter Type [Left Saline Lock Antecubital] IV Catheter Gauge [Left 20 Antecubital] Diet Orders Category Date Time Status Diabetes Consistent CHO [DIET] Nutrition 07/31/24 Breakfast Active Diagnostics 11/17/24 11/17/24 11/17/24 Range/Units 19:05 17:37 17:28 WBC (4.4-10.8) 10^3/uL RBC (4.36-5.78) 10^6/uL Hgb (13.5-17.5) g/dL Hct (40.0-50.0) % MCV (80-95) fL MCH (27.0-33.0) pg MCHC (32.0-36.0) % RDW (11.8-14.1) % Plt Count (130-400) 10^3/uL MPV (8.0-11.0) fL Immature Gran % % Neutrophils % % Lymphocytes % % Monocytes % % Eosinophils % % Basophils % % Nucleated RBC % (0.0-0.3) % Absolute Neutrophils (1.2-6.7) 10^3/uL Absolute Lymphocytes (1.2-3.4) 10^3/uL Absolute Monocytes (0.1-0.8) 10^3/uL Absolute Eosinophils (0.0-0.7) 10^3/uL Absolute Basophils (0.0-0.2) 10^3/uL RBC Morphology PT (9.1-11.1) sec INR (0.9-1.1) Sodium (136-145) mmol/L Potassium (3.5-5.1) mmol/L Chloride (98-107) mmol/L Carbon Dioxide (21.0-32.0) mmol/L Anion Gap (3-11) mmol/L BUN (7-18) mg/dL Creatinine (0.70-1.30) mg/dL Est GFR (CKD-EPI 2020) (mL/min/1.73m2) Glucose (74-106) mg/dL Calcium (8.5-10.1) mg/dL Magnesium (1.8-2.4) mg/dL Total Bilirubin (0.2-1.0) mg/dL AST (15-37) U/L ALT (16-63) U/L Alkaline Phosphatase (46-116) U/L Troponin I Cancelled 21 (<or=76) ng/L Total Protein (6.4-8.2) g/dL Albumin (3.4-5.0) g/dL COVID-19 Source Nasopharynx SARS-CoV-2 (PCR) Positive A (Negative) Influenza Type A (PCR) Negative (Negative) Influenza Type B (PCR) Negative (Negative) RSV (PCR) Negative (Negative) 07/30/24 Range/Units 16:07 WBC 7.70 (4.4-10.8) 10^3/uL RBC 4.64 (4.36-5.78) 10^6/uL Hgb 14.8 (13.5-17.5) g/dL Hct 44.7 (40.0-50.0) % MCV 96 H (80-95) fL MCH 31.9 (27.0-33.0) pg MCHC 33.1 (32.0-36.0) % RDW 14.0 (11.8-14.1) % Plt Count 192 (130-400) 10^3/uL MPV 11.0 (8.0-11.0) fL Immature Gran % 0.0 % Neutrophils % 63.0 % Lymphocytes % 12.0 % Monocytes % 21.0 % Eosinophils % 4.0 % Basophils % 0.0 % Nucleated RBC % 0.0 (0.0-0.3) % Absolute Neutrophils 4.85 (1.2-6.7) 10^3/uL Absolute Lymphocytes 0.92 L (1.2-3.4) 10^3/uL Absolute Monocytes 1.62 H (0.1-0.8) 10^3/uL Absolute Eosinophils 0.31 (0.0-0.7) 10^3/uL Absolute Basophils 0.00 (0.0-0.2) 10^3/uL RBC Morphology Normal PT 11.9 H (9.1-11.1) sec INR 1.2 H (0.9-1.1) Sodium 142 (136-145) mmol/L Potassium 4.0 (3.5-5.1) mmol/L Chloride 105 (98-107) mmol/L Carbon Dioxide 28.8 (21.0-32.0) mmol/L Anion Gap 8.2 (3-11) mmol/L BUN 16 (7-18) mg/dL Creatinine 1.2 (0.70-1.30) mg/dL Est GFR (CKD-EPI 2020) 62.67 (mL/min/1.73m2) Glucose 82 (74-106) mg/dL Calcium 8.8 (8.5-10.1) mg/dL Magnesium 1.8 (1.8-2.4) mg/dL Total Bilirubin 0.56 (0.2-1.0) mg/dL AST 14 L (15-37) U/L ALT 22 (16-63) U/L Alkaline Phosphatase 99 (46-116) U/L Troponin I 19 (<or=76) ng/L Total Protein 6.7 (6.4-8.2) g/dL Albumin 3.3 L (3.4-5.0) g/dL COVID-19 Source SARS-CoV-2 (PCR) (Negative) Influenza Type A (PCR) (Negative) Influenza Type B (PCR) (Negative) RSV (PCR) (Negative) [id number] Documentation Fingerstick Glucose Start: 07/30/24 19:36 Freq: .AC Status: Active Protocol: Activity Type Activity Date Activity User E-sign Co-sign Detail Recorded Client Recorded Date Recorded By Document 07/30/24 21:45 BKG DAEMON(3) [id number] 07/30/24 21:50 BKG DAEMON(4) Intake and Output - 24 Hour Total 07/30/24 15:54 thru 07/31/24 00:46 Intake Total 100 Balance 100 Weight 81.7 kg Intake: IV 100 Falls Risk Assessment History of Falls Previous History 07/30/24 21:07 Contributing Factors No Factors 07/30/24 21:07 Ambulatory Aids Uses ambulatory device 07/30/24 21:07 Tubes/Lines W/no contributing factors 07/30/24 21:07 Gait Evaluation W/no contributing factors 07/30/24 21:07 Cognition No cognitive impairment 07/30/24 21:07 Fall Total Score 50 07/30/24 21:07 Level of Risk High Risk 07/30/24 21:07 Problems (Last Reviewed 07/30/24 @ 19:22 by Ty Moore MD) COVID (Acute) v v v v v v v v v Sending and/or Receiving Nurses: Please use comment section below to note any information pertinent to the patient hand-off not included above. Information / Comments: Pt arrived via W/C and ambulated to bed. Pt dyspneic with minimal exertion, with saturation 86-88% on RA. O2 sat 95 Report received from: Teo Cihld
[2024-07-31] MEDS: Tiotropium/Olodaterol 10 PUFF INHALER 2 PUFF IH (08:02)
[2024-07-31] MEDS: Losartan 50 MG TAB PO (09:20)
[2024-07-31] MEDS: Tamsulosin 0.4 MG CAPCR 0.8 MG PO (09:20)
[2024-07-31] MEDS: Acetaminophen 325 MG TAB 650 MG PO (09:20)
[2024-07-31] MEDS: Clopidogrel 75 MG TAB PO (09:20)
[2024-07-31] MEDS: Gabapentin 300 MG CAP PO ×3 (09:20→20:14)
[2024-07-31] MEDS: buPROPion-CR 150 MG TABCR PO ×2 (09:20→20:12)
[2024-07-31] MEDS: Finasteride 5 MG TAB PO (09:20)
[2024-07-31] MEDS: amLODIPine 5 MG TAB PO ×2 (09:21→20:12)
[2024-07-31] MEDS: Aspirin 81 MG CHEW PO (09:21)
[2024-07-31] MEDS: Docusate Sodium 100 MG CAP PO (09:21)
[2024-07-31] MEDS: Ezetimibe 10 MG TAB PO (09:22)
[2024-07-31] MEDS: Fluticasone NASAL SPRAY 16 GM BTL NS (09:23)
--- NOTE | 2024-07-31 09:44 | PGE_ITS ---
Date of Service Date of service: 07/31/24 Time of Service: 09:45 Assessment and Plan Assessment and plan (1) COVID: Status: Acute Assessment and plan: COVID positive in the setting of recent PE, COPD on chronic oxygen and interstitial lung disease. will continue to treat with Remdesivir for 5-day course Continue oral steroids Continue supplemental O2 as needed for sats 88-92%. Usual meds as is otherwise, plus SS coverage for DM in setting of steroid use. (2) Pulmonary embolism: Status: Chronic Assessment and plan: Continue Xarelto (3) Acute exacerbation of chronic obstructive pulmonary disease: Status: Acute Assessment and plan: Continue home dose of tiotropium bromide & olodaterol daily No acute exacerbation at this time (4) Hypertension: Status: Chronic Assessment and plan: Continue Cozaar and amlodipine Qualifiers: Hypertension type: essential hypertension Qualified Code(s): I10 - Essential (primary) hypertension (5) ASCVD (arteriosclerotic cardiovascular disease): Assessment and plan: On aspirin, Plavix and high-dose statin therapy On Zetia (6) BPH w urinary obs/LUTS: Status: Acute Assessment and plan: On home dose of Flomax and finasteride (7) Pulmonary fibrosis: Status: Acute Assessment and plan: Followed up by pulmonary services outpatient No acute exacerbation of flare of lung disease at this time Discussed with Dr. Wall Subjective Subjective Patient reports: no new complaints, feels better, tolerating liquids well, tolerating a regular diet, voiding w/o difficulty and bowel movement; denies diarrhea, blood in stool, nausea, vomiting, shortness of breath (On oxygen supplementation) or fever Exam Narrative Exam Narrative: Constitutional The patient is sitting in chair, complains about being in the hospital and cost of home oxygen , no acute distress HENMT: Facial structures with normal appearance Eyes: Well aligned Neck: Normal ROM Neuro:alert and oriented X4], non-focal Resp: Normal respiratory pattern, speaks in full sentences, unlabored breathing, clear lung bilaterally but left mid-upper diminished Cardio: regular rhythm, S1, S2, no murmur, capillary refill<3 sec., bilateral radial and dorsalis pedis pulses are positive, palpable GI: Abdomen is not distended, soft and non tender, bowel sounds are present : Negative Costovertebral angle tenderness Back/spine/Pelvis: No back tenderness Extremities: strength 5/5 to bilateral lower and upper extremities Psych: RASS 0, irritable mood and irritable affect. Objective Last Vital Signs Temp 36.9 C 07/31/24 08:07 Pulse 79 07/31/24 08:07 Resp 18 07/31/24 08:07 BP 124/65 07/31/24 08:07 Pulse Ox 93 07/31/24 08:07 Laboratory Results - last 24 hr 07/30/24 07/30/24 07/30/24 16:07 17:28 17:37 WBC 7.70 RBC 4.64 Hgb 14.8 Hct 44.7 MCV 96 H MCH 31.9 MCHC 33.1 RDW 14.0 Plt Count 192 MPV 11.0 Immature Gran % 0.0 Neutrophils % 63.0 Lymphocytes % 12.0 Monocytes % 21.0 Eosinophils % 4.0 Basophils % 0.0 Nucleated RBC % 0.0 Absolute Neutrophils 4.85 Absolute Lymphocytes 0.92 L Absolute Monocytes 1.62 H Absolute Eosinophils 0.31 Absolute Basophils 0.00 RBC Morphology Normal PT 11.9 H INR 1.2 H Sodium 142 Potassium 4.0 Chloride 105 Carbon Dioxide 28.8 Anion Gap 8.2 BUN 16 Creatinine 1.2 Est GFR (CKD-EPI 2020) 62.67 Glucose 82 Calcium 8.8 Magnesium 1.8 Total Bilirubin 0.56 AST 14 L ALT 22 Alkaline Phosphatase 99 Troponin I 19 21 Total Protein 6.7 Albumin 3.3 L COVID-19 Source Nasopharynx SARS-CoV-2 (PCR) Positive A Influenza Type A (PCR) Negative Influenza Type B (PCR) Negative RSV (PCR) Negative 07/30/24 19:05 WBC RBC Hgb Hct MCV MCH MCHC RDW Plt Count MPV Immature Gran % Neutrophils % Lymphocytes % Monocytes % Eosinophils % Basophils % Nucleated RBC % Absolute Neutrophils Absolute Lymphocytes Absolute Monocytes Absolute Eosinophils Absolute Basophils RBC Morphology PT INR Sodium Potassium Chloride Carbon Dioxide Anion Gap BUN Creatinine Est GFR (CKD-EPI 2020) Glucose Calcium Magnesium Total Bilirubin AST ALT Alkaline Phosphatase Troponin I Cancelled Total Protein Albumin COVID-19 Source SARS-CoV-2 (PCR) Influenza Type A (PCR) Influenza Type B (PCR) RSV (PCR) Time Spent with Patient Time Spent with Patient: >50 minutes Time was spent: preparing to see the patient(eg.review tests), obtaining and/or reviewing separately otained hiistory, ordering medications,tests, procedures, referring, communicating with other health ambulatory care nurse, indepentently interpreting results, counseling the patient and care coordination
--- NOTE | 2024-07-31 09:46 | INITIAL_ITS ---
Date of service: 07/31/24 Time of Service: 09:46 Care Management Initial Assmt Initial Assessment Reason for Hospitalization: Covid Functional Status/Living Situation Patient Presentation: [facility] The first attempt, it seemed he answered, but fumbled with the phone and the call was dropped. On the second attempt, someone did answer, but immediately stated you are driving me crazy! I only have a few days to live! and this was followed by many expletives. JESSICA was unable to speak with [facility] today, and due to Covid, JESSICA is unable to enter the room. Town of Residence: [place] Resides with: Child (son Edward lives with Arcenio) Significant Other/Family: Local (daughters Kandis, Virginie and Una are supportive and live locally. 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) Instrumental Activities of Daily Living (ADLs): Independent Physical Functioning/Mobility Assistive Device: ane Advance Directives Advance Directives: Do you have an Advance Directive: Y 09/25/22 11:57 AD On File at [facility]: Y 09/25/22 11:57 Date Asked 07/19/24 07/30/24 15:54 AD Date Reviewed 07/01/24 07/17/24 07:59 COLST On File at [facility] COLST Date Scanned Code Status Resuscitation Status Full Code Insurance Coverage/Financial Issues Insurance: Medicare [facility] financial assistance at 100% Care Team Visit Care Team Role Provider Type Mike Burns MD Primary Care Provider [facility] STAFF PHYSICIAN Sonia Padgett RDN, [facility] Other Providers [employer] Sabina Hansen Other Providers [employer] ATTENDANTMONIQUE Fuller RDN Other Providers [employer] Shelly Culp MD Emergency Provider [facility] STAFF PHYSICIAN Ty Moore MD Admit Provider [facility] STAFF PHYSICIAN Attending Provider Other: Rebecca Amos - Pulmonology Discharge Potential Discharge Needs: PCP F/U Appt Anticipated Barriers to Discharge: None Identified Patient/Family Education Needs: Review discharge instructions, discuss Ask Me Three Transportation: Private vehicle (with family) Plan: Anticipate Arcenio will be discharged home, possibly with new home health services, when medically cleared. He will follow up with his community providers and plan of care and transport with family. CM will continue to support discharge planning needs and concerns. PFSH All Active Problems (Updated 07/31/24 @ 15:44 by Karlee Knowles APRN) BPH w urinary obs/LUTS (Acute) CAD (coronary artery disease) (Chronic) Fall (Acute) COVID-19 (Acute) Acute hypoxic respiratory failure (Acute) COVID (Acute) Pulmonary embolism (Chronic) Chronic otitis externa of both ears (Acute) Acute serous otitis media, right ear (Acute) Acute otitis externa of right ear (Acute) Internal nasal lesion (Acute) Pulmonary fibrosis (Acute) Acute exacerbation of chronic obstructive pulmonary disease (Acute) Acute otitis externa of left ear (Acute) Hypertension (Chronic) same meds, good BP here today Ear pain, right (Acute) Impetigo (Acute) [place] (dyspnea on exertion) (Acute) Cellulitis (Acute) Epistaxis (Acute) Nasal vestibulitis (Acute) Sensorineural hearing loss, bilateral (Acute) Impacted cerumen, bilateral (Acute) Weight loss (Acute) Elevated PSA, between 10 and less than 20 ng/ml (Acute) Chronic obstructive lung disease (Chronic) pulmonary fibrosis on chest xray ongoing tobacco use add back budesonide nebs to see if we can improve cough Diabetes mellitus (Chronic 05/05/13) check A1c and creat Gastroesophageal reflux disease (Chronic) Hyperlipidemia (Chronic 05/05/13) Kidney stone (Acute 09/14/14) recurrent x3 on left [facility] [place]; F/U Dr. Fair Male erectile disorder (Acute 08/29/13) Palpitations (Acute 11/04/12) multiple PVCs, bradycardia (2013) ([facility] Abraham, echo normal LVEF and stress test neg ischemia) Rheumatoid arthritis (Chronic 05/05/13) [facility] Leon Smoker (Chronic) Tubular adenoma (Acute) 11/20 COLONOSCOPY: ONE TUBULOVILLOUS ADENOMA & TWO TUBULAR ADENOMAS. 05/22/13: DR. Mateusz COPELAND:TUBULAR ADENOMAS 11/13/16: Dr Jian Crump: tublular and tubulovillous adenomas Erectile dysfunction (Chronic) Lipoma (Acute) Depressive disorder (Chronic) RCA occlusion (Acute) 05/25/19 [facility] Bradycardia (Acute) Cigarette smoker (Acute) Fatigue (Acute) Chronic knee pain (Acute) Arthritis of knee, right (Acute) Bilateral hip joint arthritis (Acute) Degenerative lumbar spinal stenosis (Acute) Adenomatous polyps (Acute) Serrated adenoma of colon (Acute ~07/2020) Mallet deformity of left ring finger (Acute 11/30/20) with avulsion fracture Anaphylaxis due to hymenoptera venom (Acute) Cellulitis of ear (Acute) Aortic atherosclerosis (Acute) Emphysema lung (Acute) Tubular adenoma of colon (Acute) COPD with acute exacerbation (Acute) 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) Cardiomyopathy (Acute) Otitis externa, left (Acute) Medical History Right shoulder pain COPD exacerbation Pneumonia Eczema Hypoxemia Sepsis COPD (chronic obstructive pulmonary disease) BPH loc w urin obs/LUTS Myocardial infarction 2020 x2 stents CVA (cerebral vascular accident) (11/21/17) ASCVD (arteriosclerotic cardiovascular disease) (05/05/13) 2 NEW STENTS 04/22 H/O IMI; angioplasty and stent; [place] , 02/11; CVA/TIA Surgical History Stented coronary artery 05/25/[place] [facility] stent of old stent-KB History of incisional hernia repair History of knee surgery RESECTION ANGIOFIBROMA;RIGHT FOOT 02/04/18 KNEE REPAIR RIGHT Hernia Repair, Incisional Excision, Lipoma (05/19/16) posterior neck Colostomy (~2006) TEMP W/ REVISION Colonoscopy - MAC (11/13/16) Colonoscopy - MAC (05/16/13) Family History Mother Essential hypertension Heart disease Stroke Father Stroke Brother Heart disease Family History Diabetes Heart disease Cancer Brother No problems noted. Brother No problems noted. Sister No problems noted. Sister Alcohol abuse Social History Smoking/Tobacco Use Status: Current every day Tobacco Type: cigarettes Tobacco: How many years used: 60 Quit status: has quit before Second Hand Exposure: Yes Smoking risk assessment performed?: Yes Alcohol Intake: former Drug use: Never Substance use type: does not use Household members: family Housing: house Communication Needs: None Do you need help understanding health information?: Rarely Pets and animals: Yes Pets and animals: cat(s) Sexually active: No Current gender identity: male What is your relationship status?: How often do you talk on the phone with friends or family?: three or more times per week How often do you get together with friends or relatives?: twice per week How often do you attend zoroastrian or bahai services?: decline to answer Do you belong to any clubs or organized social groups?: no Panel score (0-1 are the most socially isolated patients): 1 What type of physical activity do you participate in: walking Duration: < 15 minutes/day Frequency: 1-2 times per week Monika/Taoist: None Special monika needs: No Seatbelt use: sometimes Helmet use: No Drive intox or ride w/intox water truck driver: No Do you feel safe at home: Yes Do you feel safe in your relationship?: Yes Additional Social history: Lives with son Readmission Within the Past 30 Days Yes or No: Yes Date of First Admission Date of 1st Admission: 07/01/24 Date of this Admission Date of Admission: 07/30/24 This admission was: Through ED Office Visit Since 1st Admission Have you seen your PCP in the office since discharge?: No Had an appointment Been Scheduled?: Yes Describe barriers for scheduling or getting an appointment: per PCP office, Arcenio had a visit scheduled, but did not show. Speicalist Appointments Have you seen any other specialist since your 1st Admission?: Yes Date you saw the Specialist: 07/17/24 Specialist Seen: Rebecca Amos, pulmonology ED visits How many ED visits in the past 12 months: 6 Assessment for Readmission Summary of readmission circumstances, based upon interviews: Covid with hypoxia SDOH(Care Management) Screening Will the Patient Participate in the Screening?: Yes Do you worry about having a steady place to live?: no Problems where you live: no known problems In the past 12 months, have you had to go without electric, gas, oil or water in your home?: no Have you or anyone in your house had to go without enough food to eat?: no Has lack of transportation kept you from medical appointments or from doing things needed for daily living?: no Has anyone in your support network made you feel unsafe for any reason?: no
[2024-07-31] MEDS: Insulin Aspart 300 UNITS/3 ML PEN SC (12:21)
--- NOTE | 2024-07-31 12:50 | PHA.REVIEW2 ---
Pharmacy Admission Review Admission Clinical Review Admission Pharmacy Review: COVID (Acute) venom-honey bee (bee venom (honey bee)) Allergy (Severe, Verified 07/30/24 16:05) ANAPHYLAXSIS Sulfa (Sulfonamide Antibiotics) Allergy (Unknown, Verified 07/30/24 16:05) unknown leflunomide (From Arava) Adverse Reaction (Intermediate, Verified 07/30/24 16:05) DIARRHEA metformin Adverse Reaction (Intermediate, Verified 07/30/24 16:05) diarrhea Resuscitation Status Full Code Height 5 ft 9 in Weight 68.4 kg Pharmacy Admission Review Renal Dosing Renal Dosing: BUN 16 mg/dL (7-18) 07/30/24 16:07 Creatinine 1.2 mg/dL (0.70-1.30) 07/30/24 16:07 Medications needing adjustments: Reviewed (CrCl 50 mL/min) List of meds needing interventions: Current medication is okay Anticoagulation Anticoagulation: Hgb 14.8 g/dL (13.5-17.5) 07/30/24 16:07 Hct 44.7 % (40.0-50.0) 07/30/24 16:07 Plt Count 192 10^3/uL (130-400) 07/30/24 16:07 INR 1.2 (0.9-1.1) H 07/30/24 16:07 Creatinine 1.2 mg/dL (0.70-1.30) 07/30/24 16:07 DVT Prophylaxis: Reviewed Medications: Rivaroxaban (20mg daily) Relevant Labs Relevant Labs: Sodium 142 mmol/L (136-145) 07/30/24 16:07 Potassium 4.0 mmol/L (3.5-5.1) 07/30/24 16:07 Chloride 105 mmol/L (98-107) 07/30/24 16:07 Magnesium 1.8 mg/dL (1.8-2.4) 07/30/24 16:07 Electrolytes, C-Reactive P, ESR: Reviewed (No new labs for today) DM Control DM Control: Glucose 82 mg/dL (74-106) 07/30/24 16:07 Finger Stick Blood Glucose 181 1221 Finger Stick Blood Glucose 181 1158 Finger Stick Blood Glucose 181 1158 Finger Stick Blood Glucose 138 0908 Finger Stick Blood Glucose 138 0804 Finger Stick Blood Glucose 138 0804 DM Control: Reviewed Insulin Dosing, Diabetic Medication: Has order for SS insulin and glargine 36 units at bedtime Cardiac Review Cardiac Review: Troponin I Cancelled 07/30/24 19:05 BP, HR, EF%: Reviewed (HR and BP WNL, Ox 89) List meds needing interventions: Has order for amlodipine 5mg BID and losartan 50mg daily QTc Review QTc: Reviewed (421 from 07/30/24) IV to PO Switch IV Medications: Reviewed (remdesivir) Home Meds Home Med List reviewed: Intervened Relevent Home Meds Not ordered & why?: Epipen (PRN), Remicade ([id number]), sildenafil (PRN) and Anoro Ellipta (substituted with Stiolto per pharmacy protocol) Asked provider if they want patient to get Trulicity will inpatient, provider said no. I discontinued the pending order. Patient takes losartan 100mg daily at home but current order is for 50mg daily. Provider is looking into it, waiting to hear back. Current Meds Current Medication Order Review: Intervened Comments: Patient is on remdesivir, day 1, for COVID with dexamethasone 6mg daily Changed IV access-ED to IV access Changed pantoprazole timing from 0830 to 0730 per pharmacy protocol
[2024-07-31] MEDS: Rivaroxaban 10 MG TABLET 20 MG PO (17:09)
[2024-07-31] MEDS: Dexamethasone 4 MG TAB 6 MG PO (20:11)
[2024-07-31] MEDS: Atorvastatin 40 MG TAB 80 MG PO (20:12)
[2024-07-31] MEDS: Insulin Glargine 300 UNITS/3 ML PEN 36 UNITS SC (20:14)
[2024-08-01 05:04] VITALS: BP 154/76; PULSE 94; RESP 20; TEMP 36.4; O2SAT 96
[2024-08-01 06:41] LABS: Abs Immature Grans 0.02 10^3/uL (0.0-0.06); Absolute Basophil Count 0.02 10^3/uL (0.0-0.2); Absolute Eosinophil Count 0.05 10^3/uL (0.0-0.7); Absolute Lymphocyte Count 1.15 10^3/uL (1.2-3.4); Absolute Monocyte Count 0.49 10^3/uL (0.1-0.8); Absolute Neutrophil Count 4.63 10^3/uL (1.2-6.7); Basophils % 0.3 %; Eosinophils % 0.8 %; HCT 46.8 % (40.0-50.0); HGB 16.7 g/dL (13.5-17.5); Immature Grans % 0.3 %; Lymphocytes % 18.1 %; MCH 33.7 pg (27.0-33.0); MCHC 35.7 % (32.0-36.0); MCV 95 fL (80-95); MPV 11.5 fL (8.0-11.0); Monocytes % 7.7 %; Neutrophils % 72.8 %; Platelet Count 194 10^3/uL (130-400); RBC 4.95 10^6/uL (4.36-5.78); RDW 13.9 % (11.8-14.1); RDW-SD 47.9 fL; WBC 6.36 10^3/uL (4.4-10.8)
[2024-08-01 06:52] LABS: Anion Gap 6.9 mmol/L (3-11); BUN 23 mg/dL (7-18); CO2 29.1 mmol/L (21.0-32.0); CREATININE 0.9 mg/dL (0.70-1.30); Calcium 9.4 mg/dL (8.5-10.1); Chloride 107 mmol/L (98-107); Estimated GFR 88.51 (mL/min/1.73m2); Glucose 166 mg/dL (74-106); Magnesium 2.2 mg/dL (1.8-2.4); Potassium 4.5 mmol/L (3.5-5.1); Sodium 143 mmol/L (136-145)
[2024-08-01] MEDS: Tiotropium/Olodaterol 10 PUFF INHALER 2 PUFF IH (08:15)
[2024-08-01 08:17] VITALS: O2SAT 92
[2024-08-01] MEDS: Insulin Aspart 300 UNITS/3 ML PEN SC ×2 (08:22→12:15)
[2024-08-01] MEDS: amLODIPine 5 MG TAB PO ×2 (08:26→20:18)
[2024-08-01] MEDS: Ezetimibe 10 MG TAB PO (08:26)
[2024-08-01] MEDS: buPROPion-CR 150 MG TABCR PO ×2 (08:26→20:18)
[2024-08-01] MEDS: Tamsulosin 0.4 MG CAPCR 0.8 MG PO (08:26)
[2024-08-01] MEDS: Docusate Sodium 100 MG CAP PO (08:26)
[2024-08-01] MEDS: Gabapentin 300 MG CAP PO ×3 (08:26→20:18)
[2024-08-01] MEDS: Losartan 50 MG TAB PO ×2 (08:27→11:07)
[2024-08-01] MEDS: Pantoprazole 40 MG TABCR PO (08:27)
[2024-08-01] MEDS: Finasteride 5 MG TAB PO (08:27)
[2024-08-01] MEDS: Clopidogrel 75 MG TAB PO (08:27)
[2024-08-01] MEDS: Aspirin 81 MG CHEW PO (08:27)
[2024-08-01 08:40] VITALS: BP 178/77; PULSE 56; RESP 16; TEMP 36.1; O2SAT 94
[2024-08-01] MEDS: Normal Saline Flush 10 ML SYR IVP ×3 (09:12→20:20)
[2024-08-01] MEDS: Fluticasone NASAL SPRAY 16 GM BTL NS (09:12)
[2024-08-01 10:39] VITALS: BP 155/72; PULSE 54; RESP 18; TEMP 35.9; O2SAT 94
--- NOTE | 2024-08-01 13:38 | W.PM.PROGNOT ---
Date of Service Date of service: 08/01/24 Time of Service: 13:38 Assessment and Plan Assessment and plan (1) COVID: Status: Acute Assessment and plan: Found to be COVID positive in the setting of recent PE, COPD on chronic oxygen and interstitial lung disease. will continue to treat with Remdesivir for 3 to 5-day course. Will shorten course if patient insists on leaving tomorrow after 3 doses. Continue oral steroids Now on room air sat 94%, was on supplementall O2 as needed for sats 88-92%. 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 (3) Acute exacerbation of chronic obstructive pulmonary disease: Status: Acute Assessment and plan: On home dose of tiotropium bromide & olodaterol daily No acute exacerbation at this time (4) Hypertension: Status: Chronic Assessment and plan: Home dose regimen of antihypertensive with Cozaar and amlodipine Qualifiers: Hypertension type: essential hypertension Qualified Code(s): I10 - Essential (primary) hypertension (5) ASCVD (arteriosclerotic cardiovascular disease): Assessment and plan: On home dose regimen of aspirin, Plavix and high-dose statin therapy The patient is also on on Zetia likely for hyperlipidemia (6) BPH w urinary obs/LUTS: Status: Acute Assessment and plan: Continue home dose of Flomax and finasteride (7) Pulmonary fibrosis: Status: Acute Assessment and plan: Will continue to follow pulmonary services outpatient No acute exacerbation of flare of lung disease at this time (8) Contraindication to deep vein thrombosis (DVT) prophylaxis: Status: Acute Assessment and plan: On Eliquis for PE (9) Discharge planning issues: Status: Acute Assessment and plan: D/C in AM w HH Discussed with Dr. Wall Subjective Subjective Patient reports: no new complaints, tolerating liquids well, tolerating a regular diet, voiding w/o difficulty, flatus, bowel movement, afebrile and other (Asking for HH nursing for Rx assistance at home); denies diarrhea, nausea, vomiting or shortness of breath Exam Narrative Exam Narrative: Constitutional The patient is sitting in chair, calm HENMT: Facial structures with normal appearance Eyes: Well aligned Neck: Normal ROM Neuro:alert and oriented X4, no focal deficit Resp: Normal respiratory pattern, speaks in full sentences, unlabored breathing, clear lung bilaterally but left mid-upper diminished Cardio: regular rhythm, S1, S2, no murmur, GI: Abdomen is not distended, soft and non tender, bowel sounds are present Extremities: strength 5/5 to bilateral lower and upper extremities Psych: RASS 0, irritable mood and irritable affect. Objective Last Vital Signs Temp 35.9 C L 08/01/24 10:39 Pulse 54 L 08/01/24 10:39 Resp 18 08/01/24 10:39 BP 155/72 H 08/01/24 10:39 Pulse Ox 94 08/01/24 10:39 Laboratory Results - last 24 hr 08/01/24 06:15 WBC 6.36 RBC 4.95 Hgb 16.7 Hct 46.8 MCV 95 MCH 33.7 H MCHC 35.7 D RDW 13.9 Plt Count 194 MPV 11.5 H Immature Gran % 0.3 Neutrophils % 72.8 Lymphocytes % 18.1 Monocytes % 7.7 Eosinophils % 0.8 Basophils % 0.3 Nucleated RBC % 0.0 Absolute Neutrophils 4.63 Absolute Lymphocytes 1.15 L Absolute Monocytes 0.49 Absolute Eosinophils 0.05 Absolute Basophils 0.02 Sodium 143 Potassium 4.5 Chloride 107 Carbon Dioxide 29.1 Anion Gap 6.9 BUN 23 H Creatinine 0.9 Est GFR (CKD-EPI 2020) 88.51 Glucose 166 H Calcium 9.4 Magnesium 2.2 Time Spent with Patient Time Spent with Patient: 25-34 minutes Time was spent: preparing to see the patient(eg.review tests), obtaining and/or reviewing separately otained hiistory, ordering medications,tests, procedures, referring, communicating with other health care program resident, indepentently interpreting results, counseling the patient and care coordination
[2024-08-01] MEDS: Benzonatate 100 MG CAP PO ×2 (14:25→20:18)
--- NOTE | 2024-08-01 14:39 | NUR.NOTE ---
Nursing Note:Update provided to Kandis Cooley, . Yasir expressed concern about transmissibility of virus once pt in released. Edcational emphasis on mask wearing, handwashing.
--- NOTE | 2024-08-01 15:19 | PDOC.CMPRO ---
Date of service: 08/01/24 Time of Service: 15:20 Care Management Progress Note Progress Note Text Progress Note Text: CM spoke with Scot on the phone today. He stated that he is feeling better and is eager to go home. He knows he has one more dose of remdesevir, and is hoping to go tomorrow once that is completed. He stated that he is still fighting with his insurance company over the O2, but that may not be an issue anymore as he has not been requiring O2. Scot is requesting new HH RN to help with med management, he wants to make sure he is taking the right meds, and taking them correctly. Scot stated that he missed his d/c f/u appointment because he lost his appointment card, and just didn't realize. He had seen pulmonology, however. Lawrence lives with his son. Discharge Potential Discharge Needs: PCP F/U Appt Anticipated Barriers to Discharge: None Identified Patient/Family Education Needs: Review discharge instructions, discuss Ask Me Three Transportation: Private vehicle Plan: Anticipate that Scot will be discharged home with new orders for home health RN for med management. He will f/u with his community providers and continue per his plan of care. Lawrence will transport in a private vehicle with family. CM will continue to follow. SDOH(Care Management) Screening Will the Patient Participate in the Screening?: Yes Do you worry about having a steady place to live?: no Problems where you live: no known problems In the past 12 months, have you had to go without electric, gas, oil or water in your home?: no Have you or anyone in your house had to go without enough food to eat?: no Has lack of transportation kept you from medical appointments or from doing things needed for daily living?: no Has anyone in your support network made you feel unsafe for any reason?: no Anticipated HH Services Anticipated HH Services at Discharge [facility] Needed, RN.
[2024-08-01 15:32] VITALS: BP 140/75; PULSE 57; RESP 18; TEMP 36.9; O2SAT 96
[2024-08-01] MEDS: Rivaroxaban 10 MG TABLET 20 MG PO (16:11)
--- NOTE | 2024-08-01 16:26 | W.NUTRFU ---
Date of service: 08/01/24 Time of Service: 16:26 Nutrition Note NOTE: received referral for diabetes education/mgt. Pt is 78yo male admitted with COVID, acute hypoxic resp failure. PMH significant for CAD, hx of fall, pulm embolism, COPD, HTN, weight loss, GERD, DMII, HLD, tobacco use, adenoma of colon. Due to covid restrictions, did not visit with patient. ~3kg wt loss noted over the last month. Consistently eating 100% at meals with good appetite per nursing. Altered diet order to include soft and bite size preferences. Home diabetes meds include dulaglutide, 47u glargine HS. Also on exetimibe and atorvastatin. Total protein wnl, albumin low. Pt had boost ons on trays bid with reportedly inconsistent inatake. Glucose usually in the 125-150 are for fasting this admission with premeal glucose with more variations. A1C was 6.1% 07/27, which might indicate more risk for low glucose considering his medical history. would recommend flexible a1c goal of 7.5% and monitoring glucose via CGM at home to help monitor for low glucose occasions. Spoke with dtr in his contacts (Kandis) to offer any outpatient diabetes education he would be interested in after discharge. left my contact number with her. Time Spent in Nutritional Counseling and Treatment: 0
--- NOTE | 2024-08-01 17:17 | PT.INIE ---
PT Notes Visit Reasons: Covid Physical Therapy Initial Evaluation Date: 08/01/2024 Referring Doctor: Karlee Knowles PT Orders: PT CONSULT: Safety consult for discharge Precautions: COVID-19, supplemental oxygen to maintain saturations greater than 88%, IV access upper extremity Patient Profile/Admitting Diagnosis: Patient is 78-year-old male presented to the ED status post a fall and several days after onset of weakness dry cough headache and runny nose. Patient reported he received COVID-19 vaccination 1 month ago. Patient tested positive for COVID-[address] showed improvement of the prior PE, negative infiltrate with baseline COPD. Patient treated with remdesivir and steroids as well as supplemental oxygen to maintain saturation 88 to 92%. Patient admitted to MedSurg unit and PT consult placed in anticipation of discharge to home after third dose of remdesivir. PMHX: COVID (Acute) Pulmonary embolism (Chronic) Chronic otitis externa of both ears (Acute) Acute serous otitis media, right ear (Acute) Acute otitis externa of right ear (Acute) Internal nasal lesion (Acute) Pulmonary fibrosis (Acute) Acute exacerbation of chronic obstructive pulmonary disease (Acute) Acute otitis externa of left ear (Acute) Hypertension (Chronic) same meds, good BP here todayEar pain, right (Acute) Impetigo (Acute) [place] (dyspnea on exertion) (Acute) Cellulitis (Acute) Epistaxis (Acute) Nasal vestibulitis (Acute) Sensorineural hearing loss, bilateral (Acute) Impacted cerumen, bilateral (Acute) Weight loss (Acute) Elevated PSA, between 10 and less than 20 ng/ml (Acute) Chronic obstructive lung disease (Chronic) pulmonary fibrosis on chest xray ongoing tobacco use add back budesonide nebs to see if we can improve cough Diabetes mellitus (Chronic 05/05/13) check A1c and creatGastroesophageal reflux disease (Chronic) Hyperlipidemia (Chronic 05/05/13) Kidney stone (Acute 09/14/14) recurrent x3 on left [facility] Urology 10/12/16-[facility]; F/U Dr. Fair Male erectile disorder (Acute 08/29/13) Palpitations (Acute 11/04/12) multiple PVCs, bradycardia (2013) ([facility], Dr Abraham, echo normal LVEF and stress test neg ischemia) Rheumatoid arthritis (Chronic 05/05/13) [facility] Smoker (Chronic) Tubular adenoma (Acute) 11/20 COLONOSCOPY: ONE TUBULOVILLOUS ADENOMA & TWO TUBULAR ADENOMAS. 05/22/13: DR. Mateusz COPELAND:TUBULAR ADENOMAS 11/13/16: Dr Jian Crump: tublular and tubulovillous adenomas Erectile dysfunction (Chronic) Lipoma (Acute) Depressive disorder (Chronic) RCA occlusion (Acute) [facility] Cigarette smoker (Acute) Fatigue (Acute) Chronic knee pain (Acute) Arthritis of knee, right (Acute) Bilateral hip joint arthritis (Acute) Degenerative lumbar spinal stenosis (Acute) Adenomatous polyps (Acute) Serrated adenoma of colon (Acute ~07/2020) Mallet deformity of left ring finger (Acute 11/30/20) with avulsion fractureAnaphylaxis due to hymenoptera venom (Acute) Cellulitis of ear (Acute) Aortic atherosclerosis (Acute) Emphysema lung (Acute) Tubular adenoma of colon (Acute) COPD with acute exacerbation (Acute) 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) Cardiomyopathy (Acute) Otitis externa, left (Acute) Medical History Right shoulder pain COPD exacerbation Pneumonia Eczema Hypoxemia Sepsis COPD (chronic obstructive pulmonary disease) BPH loc w urin obs/LUTS Myocardial infarction 2020 x2 stents CVA (cerebral vascular accident) (11/21/17) ASCVD (arteriosclerotic cardiovascular disease) (05/05/13) 2 NEW STENTS 04/22 H/O IMI; angioplasty and stent; [place] , 02/11; CVA/TIA Surgical History Stented coronary artery 05/25/19 [facility]; s/p stent of old stent-KBHistory of incisional hernia repair History of knee surgery RESECTION ANGIOFIBROMA;RIGHT FOOT 02/04/18KNEE REPAIR RIGHTHernia Repair, Incisional Excision, Lipoma (05/19/16) posterior neckColostomy (~2006) TEMP W/ REVISIONColonoscopy - MAC (11/13/16) Colonoscopy - MAC (05/16/13) Social History/Home Situation: Patient resides with his son in a mobile home with ramp to enter. Patient reports he uses the FWW outdoors and single-point cane indoors. He is independent with ADLs cooking shopping light household management and driving. Patient reports he has 2 cats and is able to care for them without assistance Equipment Owned/DME: Cane, FWW[belongs to his brother], supplemental oxygen(patient reports having issues paying bill with [employer] and states he has people assisting him to get financial help for oxygen) Subjective: Patient reports he is hopeful to return home tomorrow after his last dose of remdesivir at midnight tonight. Patient reports his son was sick prior to him getting sick but did not realize his son potentially had COVID-19. (He uncertain if son has been tested) Objective: General Observation: Patient seated in bedside chair when approached for PT no oxygen in place smiling agreeable to participate in PT evaluation Mental Status: Alert and oriented x 4 Pain: Denies Vitals: O2 sat 96% on room air, BP 140/75, heart rate 52, respiratory rate 16 ROM: Right Upper Extremity: Within functional limits except shoulder abduction 100 degrees external rotation 70 degrees and impaired thumb opposition due to partial amputation of tip of thumb Left Upper Extremity: Within functional limits Right Lower Extremity: Within functional limits Left Lower Extremity: Within functional limits Strength: Right Upper Extremity: Shoulder abduction and external rotation 3+/5, elbow wrist hand 4/5 Left Upper Extremity: Grossly 4/5 Right Lower Extremity: Hip abduction 3+/5, hip flexion 3+/5, hip extension 3+/5, knee 3+/5, ankle 4/5 Left Lower Extremity: Grossly 4-/5 Sensation: Intact BLE B UE Bed Mobility/Transfers: Supine to sit independent Sit to stand independent Stand to sit independent Bed to chair M modified independent with FWW Gait: Patient ambulated with FWW modified independent for 4 laps within the room approximately 120 feet including multiple turns obstacle avoidance and narrow spaces with reciprocal pattern Ambulated without device SBA 30 feet x 2 reciprocal pattern however decreased step length wider base of support and increased time Balance: Static Sitting: Normal Dynamic Sitting: Normal Static Standing: Normal Dynamic Standing: Good plus Special Tests: 4 STAGE BALANCE TEST: Feet together 10 seconds 1/2 Stance 10 seconds Tandem stance 5 seconds Single leg stance left 10 seconds , right 3 seconds Mobility Limitations Standardized Measure [facility] AM-PAC 6 clicks Basic Mobility Inpatient Short Form: Raw Score: 23 CMS Score: 11.20% Informed Consent/Education: Patient instructed in purpose of PT consult. Assessment: Patient is 78-year-old male presenting status post recent COVID-19 diagnosis no longer requiring supplemental oxygen. Patient presents with clinical signs and symptoms consistent with current/admitting diagnoses that have resulted to mobility limitations, gait instability, generalized weakness, and impairment of motor control as demonstrated by the following impairment level findings: 1. Decreased strength to BLE major muscle groups 2. Impaired standing balance 3. Limitation of joint range of motion in right shoulder Impairments are contributing to the following functional limitations: 1. Inability to safely ambulate without assistive device 2. Increase completion time for mobility ADL performance 3. Increased fall risk Patient is safe for discharge to home without further skilled PT within this setting however he would benefit from home health PT to progress mobility using least restrictive device, assess home safety, identify additional equipment needs and establish a functional maintenance program to increase his ability to remain within his home. Patient is assessed as a moderate complexity based on the following: History: 78-year-old male with impairment level findings, functional limitations, and past medical history as indicated above Examination: Demonstrable impairment in strength, balance, and mobility level with underlying impairments and functional limitations as documented above Presentation: Evolving Decision Making: Moderate Goals: N/A. Plan of Care/Treatment Plan: N/A. DISCHARGE RECOMMENDATIONS: Home with services. Patient will benefit from home health PT services in order to progress mobility level using least restrictive assistive ambulatory device, assess home safety, identify additional equipment needs, and establish a functional maintenance program that will increase ability of patient to remain at home. TREATMENT CODE/TIME: 72112 x 20 minutes, 99522 x 14 minutes for 1 unit/[id number] Thank you for the opportunity to participate in the care of this patient. Sarah Rocha PT Please sign an return this page within 30 days if you agree with the above POC. Thank you! Physician Signature Date [facility]
[2024-08-01 20:16] VITALS: BP 172/85; PULSE 52; RESP 16; TEMP 36.6; O2SAT 94
[2024-08-01] MEDS: Atorvastatin 40 MG TAB 80 MG PO (20:18)
[2024-08-01] MEDS: Insulin Glargine 300 UNITS/3 ML PEN 36 UNITS SC (20:19)
[2024-08-01] MEDS: Dexamethasone 4 MG TAB 6 MG PO (20:20)
[2024-08-02 07:00] LABS: Abs Immature Grans 0.03 10^3/uL (0.0-0.06); Absolute Basophil Count 0.01 10^3/uL (0.0-0.2); Absolute Lymphocyte Count 1.24 10^3/uL (1.2-3.4); Absolute Monocyte Count 0.56 10^3/uL (0.1-0.8); Absolute Neutrophil Count 6.06 10^3/uL (1.2-6.7); Basophils % 0.1 %; Immature Grans % 0.4 %; Lymphocytes % 15.7 %; MCHC 33.3 % (32.0-36.0); MCV 96 fL (80-95); MPV 11.4 fL (8.0-11.0); Monocytes % 7.1 %; Neutrophils % 76.7 %; Platelet Count 203 10^3/uL (130-400); RDW 13.8 % (11.8-14.1); RDW-SD 49.1 fL
[2024-08-02 07:13] LABS: Anion Gap 5.4 mmol/L (3-11); BUN 24 mg/dL (7-18); CO2 31.6 mmol/L (21.0-32.0); Calcium 9.4 mg/dL (8.5-10.1); Chloride 105 mmol/L (98-107); Glucose 152 mg/dL (74-106); Potassium 4.3 mmol/L (3.5-5.1); Sodium 142 mmol/L (136-145)
[2024-08-02] MEDS: Tiotropium/Olodaterol 10 PUFF INHALER 2 PUFF IH (07:54)
[2024-08-02 08:13] VITALS: BP 137/78; PULSE 54; RESP 12; TEMP 36.2; O2SAT 95
[2024-08-02] MEDS: Normal Saline Flush 10 ML SYR IVP (09:21)
[2024-08-02] MEDS: Aspirin 81 MG CHEW PO (09:21)
[2024-08-02] MEDS: Ezetimibe 10 MG TAB PO (09:21)
[2024-08-02] MEDS: Finasteride 5 MG TAB PO (09:22)
[2024-08-02] MEDS: Clopidogrel 75 MG TAB PO (09:22)
[2024-08-02] MEDS: Docusate Sodium 100 MG CAP PO (09:22)
[2024-08-02] MEDS: Pantoprazole 40 MG TABCR PO (09:22)
[2024-08-02] MEDS: Benzonatate 100 MG CAP PO (09:25)
[2024-08-02] MEDS: buPROPion-CR 150 MG TABCR PO (09:25)
[2024-08-02] MEDS: Gabapentin 300 MG CAP PO (09:25)
[2024-08-02] MEDS: amLODIPine 5 MG TAB PO (09:25)
[2024-08-02] MEDS: Tamsulosin 0.4 MG CAPCR 0.8 MG PO (09:29)
[2024-08-02] MEDS: Losartan 50 MG TAB 100 MG PO (09:29)
[2024-08-02] MEDS: Fluticasone NASAL SPRAY 16 GM BTL NS (09:31)
--- NOTE | 2024-08-02 09:36 | DSE_ITS ---
Date of service: 08/02/24 Time of Service: 10:07 DS: Diagnosis Discharge Diagnosis (1) COVID: Status: Acute (2) Pulmonary embolism: Status: Chronic (3) Acute exacerbation of chronic obstructive pulmonary disease: Status: Acute (4) Hypertension: Status: Chronic (5) ASCVD (arteriosclerotic cardiovascular disease): (6) BPH w urinary obs/LUTS: Status: Acute (7) Pulmonary fibrosis: Status: Acute Discharge Plan Disposition Patient Disposition: Home W/Home Health Services Condition: Improving Discharge Details Reason For Visit: Covid Admit Date/Time: 07/30/24 19:30 Admit Provider: Ty Moore Attending Provider: Ty Moore Primary Care Provider: Mike Burns Hospital Course Hospital Course: This 78 years old male patient with past medical history significant for insulin-dependent diabetes mellitus, hyperlipidemia, hypertension, pulmonary fibrosis, pulmonary embolism on Xarelto and recent admission for hypoxic respiratory failure presented to the ED on 07/30/2024 at [facility] for evaluation after falling . Patient reported feeling weak since previous discharge, with gradual worsening of shortness of breath and change in his cough in addition to subjective fever. At the time the patient denied chest pain. Patient reported his leg buckling from under him while ambulating to the bathroom causing him to fall on his right knee,with ongoing knee pain and right shoulder; denied head strike and loss of consciousness. The patient was hypoxic on room air and required oxygen supplementation. In the ED was significant for a positive COVID 19 test. Blood work was negative for leukocytosis, anemia, thrombocytopenia, significant electrolyte derangement, renal dysfunction or liver disease. Troponin was negative. CT imaging showed no evidence of intracranial hemorrhage or skull fracture. Order images was were negative for shoulder and knee injury. Chest CT showed interval improvement of his pulmonary embolism, ongoing pulmonary fibrosis and COPD without evidence of acute consolidations that would point to pneumonia. The patient remained hypoxic on room air in the ED. The ED provider was concerned regarding successful discharge in the outpatient environment given his lack of home O2. Service was consulted and patient admitted to the medical surgical floor for evaluation management of hypoxic respiratory failure due to COVID-19 infection. During the stay, the patient was treated with IV remdesivir and oral dexamethasone. Initially the patient required oxygen supplementation but then improve to maintain saturations around 94-95% on room air. The patient requesting discharge on day 2. Patient agreeable to stay 1 more night to finish 3-day course of remdesivir and to be discharged if he is respiratory status remained stable. Today the patient will be discharge home with home health for physical therapy as per PT consult recommendation as well as nursing to assist in medicine compliance and monitor worsening of condition. The patient will also benefit from emergency medical technician. The patient will complete a 2-day course of oral dexamethasone. The will need to follow-up with his primary care practitioner within one to two weeks of discharge. Chronic medical conditions were treated as per home medicine regimen. Patient advised to wear a mask around other people for at least 10 days after his admission due to risk of COVID infection transmission .The patient is followed by outpatient pulmonology in regards to chronic lung diseases and oxygen requirement. Discussed with Dr. Mauro Home Meds and New Rx's Prescriptions: New benzonatate 100 mg Capsule 100 mg PO TID Qty: 15 0RF dexamethasone 4 mg Tablet 4 mg PO HS Qty: 2 0RF Continued aspirin 81 mg tablet,chewable 81 mg PO DAILY fluticasone propionate 50 mcg/actuation spray,suspension 2 spray NS DAILY Qty: 1 8RF insulin glargine 100 unit/mL (3 mL) insulin pen 47 unit SC HS Qty: 45 3RF Trulicity 0.75 mg/0.5 mL pen injector 0.75 mg SC QWEEK Qty: 6 3RF finasteride 5 mg tablet 5 mg PO DAILY Qty: 90 3RF losartan 100 mg tablet 100 mg PO DAILY Qty: 90 3RF (DME) pen needle, diabetic [Advocate Pen Needle] 33 gauge x 5/32 needle See Rx Instructions .ROUTE .MEDSUPPLY Qty: 100 3RF Rx Instructions: inject once/day amlodipine 5 mg tablet 5 mg PO BID Qty: 180 3RF nitroglycerin [Nitrostat] 0.4 mg tablet, sublingual 0.4 mg Sublingual PRN Qty: 25 11RF Rx Instructions: 1 TAB SL PRN loratadine 10 mg capsule 10 mg PO DAILY PRN Anoro Ellipta 62.5-25 mcg/actuation blister with device 1 inh inhalation DAILY Qty: 60 12RF mupirocin 2 % ointment 1 applic topical TID Qty: 50 1RF Rx Instructions: Apply to both ear canals, fingernails, anterior nares docusate sodium [Colace] 100 mg capsule 100 mg PO DAILY Qty: 90 1RF rivaroxaban 20 mg tablet 20 mg PO DAILY Qty: 90 0RF Rx Instructions: must administer with evening meal (DME) Space Chamber Plus 1 EACH spacer 1 ea Miscellaneous PRN Qty: 1 infliximab [Remicade] 100 MG recon soln 1,000 mg IV .[id number] Patient Comments: 05/31/15 Jacqui at [facility] Rheumatology reports: 1000mg IV infusion every 6 months. Done at [facility]. DL 03/05/17 q 4 months. si lorazepam [Ativan] 1 mg tablet 1 mg PO DAILY PRN (Reason: anxiety) Qty: 2 0RF Rx Instructions: take 1 pill about 1 hour prior to scheduled MRI - if still anxious when you check in at the hospital, may take 2nd pill (DME) blood-glucose meter [FreeStyle Lite Meter] Kit See Rx Instructions .ROUTE .MEDSUPPLY Qty: 1 0RF Rx Instructions: test once/day (DME) Contour Test Strips Strip See Rx Instructions .Route Qty: 300 4RF Rx Instructions: Test three times daily (DME) lancets [TRUEplus Lancets] 28 gauge misc See Rx Instructions .Route Qty: 100 3RF Rx Instructions: test once/day pantoprazole 40 mg tablet,delayed release (DR/EC) 40 mg PO DAILY Qty: 90 3RF Rx Instructions: TAKE 6 HOURS APART FROM YOUR PLAVIX albuterol sulfate [Ventolin HFA] 90 mcg/actuation HFA aerosol inhaler 2 inh INHALATION Q6H PRN (Reason: bronchospasm) Qty: 8.5 5RF bupropion HCl 150 mg tablet sustained-release 12 hr 150 mg PO BID Qty: 180 3RF clopidogrel [Plavix] 75 mg tablet 75 mg PO DAILY Qty: 90 4RF sildenafil 100 mg tablet 100 mg PO DAILY PRN (Reason: sexual activity) Qty: 5 12RF Rx Instructions: administer 30 minutes to 4 hours before activity. Do not use nitro at the same time as this medication atorvastatin 80 mg tablet 80 mg PO QHS Qty: 90 3RF ezetimibe 10 mg tablet 10 mg PO DAILY Qty: 90 4RF gabapentin 300 mg capsule See Rx Instructions .ROUTE .COMPLEX Qty: 90 5RF Dose Instruction: TAKE ONE CAPSULE BY MOUTH THREE TIMES A DAY Rx Instructions: TAKE ONE CAPSULE BY MOUTH THREE TIMES A DAY tamsulosin 0.4 mg capsule 0.8 mg PO DAILY Qty: 180 3RF acetaminophen 650 MG tablet extended release 650 mg PO Q8H PRN (Reason: Pain) Qty: 20 0RF epinephrine 0.3 mg/0.3 mL auto-injector 0.3 mg IM ONCE Qty: 2 0RF Rx Instructions: as a single dose; may repeat once Discharge Instructions Instructions: COVID-19 in adults - Discharge instructions Stand Alone Forms: Nursing Discharge Form Referrals: Mike Burns MD [Primary Care Provider] - 08/09/24 11:20 am (Your appointment will be with Dr. Mcallister. ) Activity:: Activity as Tolerated Equipment/Supplies:: Walker Diet:: heart healthy diabetic Discharge Orders Discharge Orders: Discharge Order (Routine); Ordered 08/02/24 Ordered By: Karlee Knowles DS: Summary Time Spent with Patient providing and/or coordinating discharge services: Greater than 30 minutes Status at Discharge Functional status at discharge: uses cane/walker Overall status at discharge: patient is progressing back to baseline Mental Status: mental status grossly normal Speech and Movement: speech and movement normal Mood: congruent mood Affect: normal affect Quality:SDOH Health Related Social Needs: Health related social needs details difficulty obtaini ng meds due to cost Exam Narrative Exam Narrative: Constitutional The patient is sitting in chair, calm HENMT: Facial structures with normal appearance Eyes: Well aligned Neck: Normal ROM Neuro:alert and oriented X4, no focal deficit Resp: Normal respiratory pattern, speaks in full sentences, unlabored breathing, clear lung bilaterally but diminished bases L>R Cardio: regular rhythm, S1, S2, no murmur, GI: Abdomen is not distended, soft and non tender, bowel sounds are present Extremities: strength 5/5 to bilateral lower and upper extremities Psych: RASS 0, congruent mood and normal affect. Psych Mental Status: mental status grossly normal Speech and Movement: speech and movement normal Mood: congruent mood Affect: normal affect DS: Data Vitals/I&O Vitals and I&O: Vital Signs Temperature 36.2 C L 08/02/24 08:13 Temperature Source Temporal Artery Scan 08/02/24 08:13 Pulse 54 L 08/02/24 08:13 Pulse Rhythm Irregular 07/30/24 21:07 Pulse 55 L 07/30/24 20:40 Respiratory Rate 12 08/02/24 08:13 Respiratory Effort Short of Breath, Incrsd Work of Breathing 07/30/24 21:07 Respiratory Depth Normal 07/30/24 21:07 Respiratory Pattern Normal 07/30/24 21:07 Blood Pressure 137/78 08/02/24 08:13 Blood Pressure Mean 106 07/30/24 20:00 Blood Pressure Position Sitting 07/30/24 16:01 Pulse Oximetry 95 08/02/24 08:13 Oxygen Delivery Method Room Air 08/02/24 08:13 Oxygen Flow Rate 0 08/02/24 08:13 Pain Level 0 08/01/24 17:40 Comment map 110 08/01/24 20:16 Comment on 2 lpm O2 07/30/24 16:30 Intake & Output 08/01/24 08/01/24 08/02/24 11:59 23:59 11:59 Intake Total 400 / 890 490 / 890 410 / 410 Output Total 1275 / 1650 375 / 1650 Balance -875 / -760 115 / -760 410 / 410 Weight 80.1 kg Intake: IV 100 / 110 10 / 110 110 / 110 Oral 300 / 780 480 / 780 300 / 300 Output: Urine 1275 / 1650 375 / 1650 Other: Urine Color Yellow Yellow Urine Appearance Clear Clear Urine Odor None Data Completed and Pending Labs on day of discharge: Labs from last 24 hours 08/02/24 06:30 WBC 7.90 RBC 5.00 Hgb 16.0 Hct 48.0 MCV 96 H MCH 32.0 MCHC 33.3 D RDW 13.8 Plt Count 203 MPV 11.4 H Immature Gran % 0.4 Neutrophils % 76.7 Lymphocytes % 15.7 Monocytes % 7.1 Eosinophils % 0.0 Basophils % 0.1 Nucleated RBC % 0.0 Absolute Neutrophils 6.06 Absolute Lymphocytes 1.24 Absolute Monocytes 0.56 Absolute Eosinophils 0.00 Absolute Basophils 0.01 Sodium 142 Potassium 4.3 Chloride 105 Carbon Dioxide 31.6 Anion Gap 5.4 BUN 24 H Creatinine 1.0 Est GFR (CKD-EPI 2020) 78.00 Glucose 152 H Calcium 9.4 PFSH All Active Problems (Updated 08/01/24 @ 13:45 by Karlee Knowles APRN) Discharge planning issues (Acute) Contraindication to deep vein thrombosis (DVT) prophylaxis (Acute) BPH w urinary obs/LUTS (Acute) CAD (coronary artery disease) (Chronic) Fall (Acute) COVID-19 (Acute) Acute hypoxic respiratory failure (Acute) COVID (Acute) Pulmonary embolism (Chronic) Chronic otitis externa of both ears (Acute) Acute serous otitis media, right ear (Acute) Acute otitis externa of right ear (Acute) Internal nasal lesion (Acute) Pulmonary fibrosis (Acute) Acute exacerbation of chronic obstructive pulmonary disease (Acute) Acute otitis externa of left ear (Acute) Hypertension (Chronic) same meds, good BP here today Ear pain, right (Acute) Impetigo (Acute) [place] (dyspnea on exertion) (Acute) Cellulitis (Acute) Epistaxis (Acute) Nasal vestibulitis (Acute) Sensorineural hearing loss, bilateral (Acute) Impacted cerumen, bilateral (Acute) Weight loss (Acute) Elevated PSA, between 10 and less than 20 ng/ml (Acute) Chronic obstructive lung disease (Chronic) pulmonary fibrosis on chest xray ongoing tobacco use add back budesonide nebs to see if we can improve cough Diabetes mellitus (Chronic 05/05/13) check A1c and creat Gastroesophageal reflux disease (Chronic) Hyperlipidemia (Chronic 05/05/13) Kidney stone (Acute 09/14/14) recurrent x3 on left [facility] Urology 10/12/16-[facility]; F/U Dr. Fair Male erectile disorder (Acute 08/29/13) Palpitations (Acute 11/04/12) multiple PVCs, bradycardia (2013) ([facility], Dr Abraham, echo normal LVEF and stress test neg ischemia) Rheumatoid arthritis (Chronic 05/05/13) [facility], Dr Leon Smoker (Chronic) Tubular adenoma (Acute) 11/20 COLONOSCOPY: ONE TUBULOVILLOUS ADENOMA & TWO TUBULAR ADENOMAS. 05/22/13: DR. Mateusz COPELAND:TUBULAR ADENOMAS 11/13/16: Dr Jian Crump: tublular and tubulovillous adenomas Erectile dysfunction (Chronic) Lipoma (Acute) Depressive disorder (Chronic) RCA occlusion (Acute) 05/25/19 [facility] Bradycardia (Acute) Cigarette smoker (Acute) Fatigue (Acute) Chronic knee pain (Acute) Arthritis of knee, right (Acute) Bilateral hip joint arthritis (Acute) Degenerative lumbar spinal stenosis (Acute) Adenomatous polyps (Acute) Serrated adenoma of colon (Acute ~07/2020) Mallet deformity of left ring finger (Acute 11/30/20) with avulsion fracture Anaphylaxis due to hymenoptera venom (Acute) Cellulitis of ear (Acute) Aortic atherosclerosis (Acute) Emphysema lung (Acute) Tubular adenoma of colon (Acute) COPD with acute exacerbation (Acute) 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) Cardiomyopathy (Acute) Otitis externa, left (Acute) Medical History Right shoulder pain COPD exacerbation Pneumonia Eczema Hypoxemia Sepsis COPD (chronic obstructive pulmonary disease) BPH loc w urin obs/LUTS Myocardial infarction 2020 x2 stents CVA (cerebral vascular accident) (11/21/17) ASCVD (arteriosclerotic cardiovascular disease) (05/05/13) 2 NEW STENTS 04/22 H/O IMI; angioplasty and stent; [place] , 02/11; CVA/TIA Surgical History Stented coronary artery 05/25/19 [facility]; s/p stent of old stent-KB History of incisional hernia repair History of knee surgery RESECTION ANGIOFIBROMA;RIGHT FOOT 02/04/18 KNEE REPAIR RIGHT Hernia Repair, Incisional Excision, Lipoma (05/19/16) posterior neck Colostomy (~2006) TEMP W/ REVISION Colonoscopy - MAC (11/13/16) Colonoscopy - MAC (05/16/13) Family History Mother Essential hypertension Heart disease Stroke Father Stroke Brother Heart disease Family History Diabetes Heart disease Cancer Brother No problems noted. Brother No problems noted. Sister No problems noted. Sister Alcohol abuse Social History Smoking/Tobacco Use Status: Current every day Tobacco Type: cigarettes Tobacco: How many years used: 60 Quit status: has quit before Second Hand Exposure: Yes Smoking risk assessment performed?: Yes Alcohol Intake: former Drug use: Never Substance use type: does not use Household members: family Housing: house Communication Needs: None Do you need help understanding health information?: Rarely Pets and animals: Yes Pets and animals: cat(s) Sexually active: No Current gender identity: male What is your relationship status?: How often do you talk on the phone with friends or family?: three or more times per week How often do you get together with friends or relatives?: twice per week How often do you attend mu-ism or worship services?: decline to answer Do you belong to any clubs or organized social groups?: no Panel score (0-1 are the most socially isolated patients): 1 What type of physical activity do you participate in: walking Duration: < 15 minutes/day Frequency: 1-2 times per week Monika/Mandaen: None Special monika needs: No Seatbelt use: sometimes Helmet use: No Drive intox or ride w/intox guard driver: No Do you feel safe at home: Yes Do you feel safe in your relationship?: Yes Additional Social history: Lives with son Time Spent with Patient Time Spent with Patient: 70-84 minutes4 Time was spent: preparing to see the patient(eg.review tests), obtaining and/or reviewing separately otained hiistory, ordering medications,tests, procedures, referring, communicating with other health complex care nurse practitioner, indepentently interpreting results, counseling the patient and care coordination
--- NOTE | 2024-08-02 10:09 | PDOC.HHF2F ---
Home Health Referral Home Health Orders Clinical synopsis of why skilled professionals are needed: This 78 years old male patient with past medical history significant for insulin-dependent diabetes mellitus, hyperlipidemia, hypertension, pulmonary fibrosis, pulmonary embolism on Xarelto and recent admission for hypoxic respiratory failure presented to the ED on 07/30/2024 at [facility] for evaluation after falling . Patient reported feeling weak since previous discharge, with gradual worsening of shortness of breath and change in his cough in addition to subjective fever. At the time the patient denied chest pain. Patient reported his leg buckling from under him while ambulating to the bathroom causing him to fall on his right knee,with ongoing knee pain and right shoulder; denied head strike and loss of consciousness. The patient was hypoxic on room air and required oxygen supplementation. In the ED was significant for a positive COVID 19 test. Blood work was negative for leukocytosis, anemia, thrombocytopenia, significant electrolyte derangement, renal dysfunction or liver disease. Troponin was negative. CT imaging showed no evidence of intracranial hemorrhage or skull fracture. Order images was were negative for shoulder and knee injury. Chest CT showed interval improvement of his pulmonary embolism, ongoing pulmonary fibrosis and COPD without evidence of acute consolidations that would point to pneumonia. The patient remained hypoxic on room air in the ED. The ED provider was concerned regarding successful discharge in the outpatient environment given his lack of home O2. Service was consulted and patient admitted to the medical surgical floor for evaluation management of hypoxic respiratory failure due to COVID-19 infection. During the stay, the patient was treated with IV remdesivir and oral dexamethasone. Initially the patient required oxygen supplementation but then improve to maintain saturations around 94-95% on room air. The patient requesting discharge on day 2. Patient agreeable to stay 1 more night to finish 3-day course of remdesivir and to be discharged if he is respiratory status remained stable. Today the patient will be discharge home with home health for physical therapy as per PT consult recommendation as well as nursing to assist in medicine compliance and monitor worsening of condition. The patient would also benefit from a medical collections. The patient will complete a 2-day course of oral dexamethasone. The will need to follow-up with his primary care practitioner within one to two weeks of discharge. Chronic medical conditions were treated as per home medicine regimen. Patient advised to wear a mask around other people for at least 10 days after his admission due to risk of COVID infection transmission . Discussed with Dr. Mauro Medical diagnosis necessitation home health referral: COVID_19, acute hypoxic resp failure, COPD, PE, ILD Registered Nurse: Check all that apply Instruct on new or changed medication(s)/assess compliance: Ordered Assess for exacerbation of medical condition, instruct patient/caregivers on signs and symptoms to report for early detection: Ordered Physical Therapist: Check all that apply Increase strength & endurance for safe mobility at home: Ordered To design/establish home maintenance program: Ordered Fall reduction therapy program for patient with history of frequent falls: Ordered Home safety evaluation and teaching/gait training including stair management (if applicable): Ordered Better Breathing Program: Ordered Bid Manager: Assist with community resources: Ordered Assist with adjunct faculty for medical terminology care planning: Ordered Home Bound Status Requires the aid of supportive device (check all that apply): Cane and Walker Describe why leaving home would require a considerable and taxing effort: Requires frequent rest periods Encounter Date and Reason: I certify that a FTF encounter for this patient was performed on August 02, 2024 and that such encounter was related to the primary reason the patient requires home health services. The encounter was conducted in the following manner: By me as the certifying physician, RELIEF MANAGER, PA or By an inpatient physician, RELIEF MANAGER or PA during an inpatient stay who communicated findings to me, Certification And Authentication I certify that I composed the above information based on my clinical judgment relating to this patient's medical condition and, if applicable, clinical findings communicated to me by the NPP or inpatient physician who performed the FTF encounter. Name of Provider that will be monitoring home health services: Mike Burns
--- NOTE | 2024-08-02 11:17 | CMDISCH_ITS ---
Date of service: 08/02/24 Time of Service: 11:17 LACE Index Scoring Tool Questions: Length of Stay (in days): 3 Was the patient admitted via the E.D.?: Yes Comorbidities: Chronic Pulmonary Disease E.D. Visits: 3 Answers: Total Score: 11 Risk of Readmission: High Risk Care Management Discharge Plan Reason for Hospitalization: Lawrence was admitted for Covid. Initially had an oxygen requirement. Discharge Plan: Lawrence is discharged home today with new orders for HH RN and PT. He will f/u with his PCP on 08/09, and pulmonology at an already scheduled visit on 10/17/24. He will continue per his plan of care and transport home in a private vehicle. Patient/Family Education Needs: Review of discharge instructions, activity, limitations, f/u plan and Ask me 3 SDOH Health Related Social Needs: Health related social needs details difficulty obtaini ng meds due to cost
[2024-08-02 12:12] VITALS: BP 137/79; PULSE 64; RESP 16; TEMP 36.5; O2SAT 95
--- NOTE | 2024-08-02 16:29 | PDOC.CMDIS ---
Date of service: 08/02/24 Time of Service: 11:30 LACE Index Scoring Tool Questions: Length of Stay (in days): 3 Was the patient admitted via the E.D.?: Yes Comorbidities: Diabetes w/o Complication and Chronic Pulmonary Disease E.D. Visits: 3 Answers: Total Score: 12 Risk of Readmission: High Risk Care Management Discharge Plan Reason for Hospitalization: Lawrence was admitted for Covid. Initially had an oxygen requirement. Was tx with remdesevir Discharge Plan: Lawrence was discharged home with new orders for HH RN, PT for strength and the Better breathing program, and CARD STRIPPER. He is not requiring home O2 at this time. He will follow up with his PCP on 08/09, and he has a previously scheduled pulmonology appt on 10/17. He was transported home in a private vehicle, and will continue per his plan of care. Patient/Family Education Needs: Review of discharge instructions, activity, limitations, f/u plan and discuss Ask me 3. SDOH Health Related Social Needs: Health related social needs details difficulty obtaining meds due to cost
== END 2024-08-02 12:56 | disposition home health service (06) | DRG 177 ==
LOC: ER 19:31 → MS 20:59
PROVIDERS: Nurse Practitioner Acute Care; Admitting Provider General Practice; Emergency Provider Emergency Medicine; PCP Family Medicine; Visit Provider General Practice
DX: U07.1 COVID-19 (principal); I26.99 Other pulmonary embolism without acute cor pulmonale; I42.9 Cardiomyopathy, unspecified; J44.1 Chronic obstructive pulmonary disease with (acute) exacerbation; N13.8 Other obstructive and reflux uropathy; M25.561 Pain in right knee; M25.511 Pain in right shoulder; W18.39XA Other fall on same level, initial encounter; H60.63 Unspecified chronic otitis externa, bilateral; I10 Essential (primary) hypertension; L01.00 Impetigo, unspecified; H90.3 Sensorineural hearing loss, bilateral; E11.9 Type 2 diabetes mellitus without complications; K21.9 Gastro-esophageal reflux disease without esophagitis; E78.5 Hyperlipidemia, unspecified; M16.0 Bilateral primary osteoarthritis of hip; I70.0 Atherosclerosis of aorta; I25.2 Old myocardial infarction; Z95.5 Presence of coronary angioplasty implant and graft; M05.10 Rheumatoid lung disease with rheumatoid arthritis of unspecified site; J84.178 Other interstitial pulmonary diseases with fibrosis in diseases classified elsewhere; Z79.4 Long term (current) use of insulin; Z79.85 Long-term (current) use of injectable non-insulin antidiabetic drugs; Z99.81 Dependence on supplemental oxygen; N40.1 Benign prostatic hyperplasia with lower urinary tract symptoms; R53.1 Weakness; Z79.01 Long term (current) use of anticoagulants
CPT/HCPCS: 00123; 36415; 36416; 71275; 73562; 80048; 80053; 82962; 87637; 93005; 94640; 97162; 97530; 99291; 70450; 72125; 73030; 83735; 84484; 85025; 85610; 93010; 94664; 94760; 99222; 99231; 99233; 99239; J0248; J1815; J3490; J8540

== ENCOUNTER 2024-08-04 10:53 | Inpatient (IN) | payer MEDICARE, SELFPAY ==
[2024-08-04] VITALS (81 sets, daily range): BP systolic 97–163; BP diastolic 26–81; PULSE 65–127; RESP 9–41; TEMP 37–37.4; O2SAT 76–97
--- NOTE | 2024-08-04 10:45 | RT.EKG_ITS ---
APPROVED REPORT Exam: Resting ECG Reason for Exam: Dyspnea, weakness, Covid+ Patient Location: E HR:88 bpm ECG Measurements Heart Rate 88 AXIS LA 213 P -47 QRSd 109 QRS -53 QT 417 T 70 QTc 504 Conclusion Sinus or ectopic atrial rhythm...P axis (-45,135) Borderline prolonged LA interval...LA >212, V-rate 50- 90 LVH with secondary repolarization abnormality...multi-LVH criteria, abnrm ST-T Inferior infarct, old...Q >35mS, II III aVF Prolonged QT interval...QTc >500mS
--- NOTE | 2024-08-04 11:00 | DI.CT_ITS ---
Exam(s) CT CHEST WO EXAM: CT CHEST WO CLINICAL HISTORY: fall, covid, respiratory failure. TECHNIQUE: Multi planar reconstructions were performed. CONTRAST MATERIAL: None COMPARISON: CT CT CHEST PE CTA from 07/30/2024 FINDINGS: CHEST: LUNGS: On this noninfused study there are severe COPD findings again noted. When compared to the rec ent CT scan of 07/30/2024 is now prominent size infiltrate in the right lower lobe, this involving al l the basal segments as well as the superior segment and there is some developing cavitation evident (series 3/image 45). There is no infiltrate evident in the right upper lobe nor within the right mid dle lobe. In the opposite-left lung there are severe COPD and fibrotic changes in lower lobe but no new infiltr ate in the left lower lobe when compared to the prior study. There are no pleural effusions. No significant findings in the trachea and mainstem bronchi. MEDIASTINUM: There is no obvious hilar nor mediastinal adenopathy. No obvious axillary adenopathy CARDIAC: Mild cardiomegaly. No pericardial effusion.Caliber of the thoracic aorta is within normal l imits. VISUALIZED UPPER ABDOMEN:No adrenal masses. Normal spleen size. Cholelithiasis noted. OSSEOUS: No significant osseous lesions.No new fractures. IMPRESSION: 1. Compared to the recent CT scan of 07/30/2024 there is now a large right lower lobe infiltrate invo lving all the basal segments as well as the superior segment of the right lower lobe, this superimpos ed upon severe COPD changes and appearing to exhibit some cavitation (series 3/image 45). No associa comfort pleural effusion nor obvious hilar/mediastinal lymphadenopathy. 2. No increasing infiltrate in the opposite-left lung. Discussed by phone with ER provider RADIATION DOSE DELIVERED: 400.94mGy.cm Total DLP DATA REPOSITORY: All CT scans at this facility are submitted to the National Radiology Data Registry (NRDR) Dose Index Registry (DIR) with the [employer] (A[employer]). RADIATION OPTIMIZATION: All CT scans at this facility use at least one of these dose optimization te chniques: automated exposure control; mA and/or kV adjustment per patient size (includes targeted exa ms where dose is matched to clinical indication); or iterative reconstruction.
--- NOTE | 2024-08-04 11:00 | DI.CT_ITS ---
Exam(s) CT HEAD CERVICAL SPINE WO EXAM: CT HEAD CERVICAL SPINE WO CLINICAL HISTORY: fall, anticoag. TECHNIQUE: Imaging Protocol: Axial computed tomography images with coronal and sagittal reformatted images were created and reviewed COMPARISON: CT CT HEAD CERVICAL SPINE WO from 07/30/2024 FINDINGS: BRAIN: There are no skull fractures nor fluid in the visualized paranasal sinuses. There is no evidence of intracranial hemorrhage, mass effect, or shift of midline structures. There are no extra-axial fluid collections. The ventricles are not enlarged or shifted and there is no blo od within the ventricular system nor within the basal cisterns. Again noted are chronic small-vessel white ischemic changes. No evidence of acute infarct. CERVICAL SPINE: There is no evidence of fracture nor listhesis. No significant prevertebral soft tissue swelling. No significant disc space narrowing. Minimal facet degenerative changes. There is no significant facet joint malalignment. No significant osseous lesions evident. Calcification in the supraspinous ligament again noted. IMPRESSION: No acute intracranial findings on this noninfused CT scan of the brain. No evidence of acute cervical spine fracture, malalignment, nor acute compromise of the cervical spin al canal. Called by myself to ER RADIATION DOSE DELIVERED: 1,933.37mGy.cm Total DLP DATA REPOSITORY: All CT scans at this facility are submitted to the National Radiology Data Registry (NRDR) Dose Index Registry (DIR) with the [employer] (ACR). RADIATION OPTIMIZATION: All CT scans at this facility use at least one of these dose optimization te chniques: automated exposure control; mA and/or kV adjustment per patient size (includes targeted exa ms where dose is matched to clinical indication); or iterative reconstruction.
[2024-08-04 11:28] LABS: Abs Immature Grans 0.22 10^3/uL (0.0-0.06); Absolute Monocyte Count 2.78 10^3/uL (0.1-0.8); BE (Venous) 0 mmol/L (-2-3); Basophils % 0.5 %; HCO3 (Venous) 25 mmol/L (23-28); HGB 14.8 g/dL (13.5-17.5); Immature Grans % 0.9 %; Lymphocytes % 4.8 %; MCH 31.9 pg (27.0-33.0); MCHC 33.6 % (32.0-36.0); MCV 95 fL (80-95); MPV 11.6 fL (8.0-11.0); Neutrophils % 82.3 %; O2 Sat (Venous) 77 %; Platelet Count 172 10^3/uL (130-400); RBC 4.64 10^6/uL (4.36-5.78); RDW 14.3 % (11.8-14.1); RDW-SD 49.6 fL; TCO2 (Venous) 22 mmol/L (24-29); WBC 24.19 10^3/uL (4.4-10.8); pCO2 (Venous) 42 mmHg (41-51); pH (Venous) 7.38 (7.31-7.41); pO2 (Venous) 44 mmHg
[2024-08-04 11:29] LABS: Lactate 2.1 mmol/L (0.6-1.4)
[2024-08-04 11:31] LABS: Absolute Basophil Count 0.12 10^3/uL (0.0-0.2); Absolute Lymphocyte Count 1.16 10^3/uL (1.2-3.4); Absolute Neutrophil Count 19.91 10^3/uL (1.2-6.7)
[2024-08-04 11:38] LABS: INR 1.5 (0.9-1.1); Prothrombin Time 14.3 sec (9.1-11.1)
[2024-08-04 11:48] LABS: ALT 22 U/L (16-63); AST 14 U/L (15-37); Albumin 2.8 g/dL (3.4-5.0); Alkaline Phosphatase 77 U/L (46-116); Anion Gap 8.6 mmol/L (3-11); BUN 40 mg/dL (7-18); Bilirubin, Total 0.88 mg/dL (0.2-1.0); CO2 26.4 mmol/L (21.0-32.0); CREATININE 1.5 mg/dL (0.70-1.30); Calcium 8.9 mg/dL (8.5-10.1); Chloride 104 mmol/L (98-107); Estimated GFR 47.95 (mL/min/1.73m2); Glucose 157 mg/dL (74-106); Potassium 4.1 mmol/L (3.5-5.1); Sodium 139 mmol/L (136-145); Total Protein 6.3 g/dL (6.4-8.2); Troponin I 12 ng/L (<or=76)
[2024-08-04] MEDS: Albuterol/Ipratropium 3 ML UPD VIAL 6 ML UPD (11:48)
[2024-08-04 11:49] LABS: Monocytes % 11.5 %
[2024-08-04] MEDS: methylPREDNISolone SUCC 125 MG VIAL IVP (11:49)
[2024-08-04] MEDS: CEFEPIME 2 GM in Normal Saline 50 ML IVPB (11:49)
[2024-08-04] MEDS: MAGNESIUM SULFATE 1 GM/100 ML BAG IV_INF (11:52)
[2024-08-04] MEDS: Normal Saline 500 ML IV ×2 (11:55→13:01)
[2024-08-04 12:00] LABS: Procalcitonin 2.49 ng/mL
[2024-08-04 13:11] LABS: Troponin I 12 ng/L (<or=76)
[2024-08-04] MEDS: Albuterol/Ipratropium 3 ML UPD VIAL (13:33)
[2024-08-04 13:36] LABS: Bilirubin Negative (Negative); Blood Large (Negative); Clarity Sl Cloudy (Clear); Glucose Negative (Negative); Ketones Negative (Negative); Leukocyte Esterase Trace (Negative); Nitrite Negative (Negative); Specific Gravity >= 1.030 (1.005-1.025); Urobilinogen 0.2 mg/dL (Up to 0.2); pH 5.5 (5-8)
[2024-08-04 13:46] LABS: Bacteria Rare HPF (Negative); C & S Indicated? Yes; Casts Negative LPF (Negative); Crystals Negative HPF (Negative); Epithelial Cells Rare HPF (Negative); Mucus Trace (Negative); RBC >50 HPF (0-2)
[2024-08-04] MEDS: DOXYCYCLINE 100 MG in Normal Saline 100 ML IVPB (14:30)
--- NOTE | 2024-08-04 14:30 | W.ED.GENAD ---
Discharge Plan Disposition Patient Disposition: Admit to [facility] Condition: Serious Discharge Details Clinical Impression: Respiratory failure, Pneumonia, CORINE (acute kidney injury), COVID-19 Admit Date/Time: 08/04/24 15:05 Admit Provider: Igor Mauro Attending Provider: Igor Mauro Primary Care Provider: Mike Burns ED Provider: Leona De Santiago Discharge Data Discharge Date/Time-TO BE ENTERED AT DEPARTURE: 08/04/24 17:33 HPI General Date/Time Provider Initiated Documentation: 08/04/24 10:56. HPI Narrative: This 78-year-old male with history of coronary artery disease, hypertension, pulmonary fibrosis, pulmonary embolism presents with report of COVID-19 with his hypotension and increased work of breathing with falls at home. Patient was recently discharged from the hospital after being diagnosed with COVID-19 initially requiring oxygen discharged home on room air. Patient reportedly had requested discharge home. Patient states he was feeling improvement until last evening when his symptoms returned and he had chills subjective fevers. He fell this morning, hitting his head but there was no reported loss of consciousness and is does not have any complaints related to this fall. He states he does feel quite weak. Related Data Home Medications ?Medication ?Instructions ?Recorded ?Confirmed inhalational spacing device (Space ##1 05/27/15 08/04/24 Chamber Plus) infliximab 100 mg intravenous 1,000 mg IV .[id number] 05/31/15 08/04/24 solution (Remicade) acetaminophen 650 mg 650 mg PO Q8H PRN Pain ##20 04/30/17 08/04/24 tablet,extended release epinephrine 0.3 mg/0.3 mL 0.3 mg (0.3 mL) IM ONCE #2 ea 03/12/21 08/04/24 injection, auto-injector aspirin 81 mg chewable tablet 81 mg PO DAILY 05/27/21 08/04/24 amlodipine 5 mg tablet 5 mg PO BID #180 tabs 03/18/23 08/04/24 lorazepam 1 mg tablet (Ativan) 1 mg PO DAILY PRN anxiety #2 tabs 05/14/23 08/04/24 blood-glucose meter (FreeStyle #1 ea 06/01/23 08/04/24 Lite Meter kit) nitroglycerin 0.4 mg sublingual 0.4 mg sublingual PRN #25 tab-caps 06/23/23 08/04/24 tablet (Nitrostat) blood sugar diagnostic (Contour #300 ea 07/27/23 08/04/24 Test Strips) dulaglutide 0.75 mg/0.5 mL 0.75 mg (0.5 mL) subcut QWEEK #6 mL 09/22/23 08/04/24 subcutaneous pen injector (Trulicity) finasteride 5 mg tablet 5 mg PO DAILY #90 tabs 09/22/23 08/04/24 fluticasone propionate 50 2 spray NS DAILY #1 g 09/22/23 08/04/24 mcg/actuation nasal spray,suspension insulin glargine 100 unit/mL (3 47 unit (0.47 mL) subcut HS #45 mL 09/22/23 08/04/24 mL) subcutaneous pen lancets 28 gauge (TRUEplus Lancets) #100 ea 09/25/23 08/04/24 pantoprazole 40 mg tablet,delayed 40 mg PO DAILY #90 tabs 10/16/23 08/04/24 release albuterol sulfate 90 mcg/actuation 2 inh inhalation Q6H PRN 12/27/23 08/04/24 aerosol inhaler (Ventolin HFA) bronchospasm #8.5 grams bupropion HCl 150 mg tablet,12 hr 150 mg PO BID #180 tabs 02/28/24 08/04/24 sustained-release loratadine 10 mg capsule 10 mg PO DAILY PRN 03/06/24 08/04/24 umeclidinium 62.5 mcg-vilanterol 1 inh inhalation DAILY #60 ea 03/06/24 08/04/24 25 mcg/actuation powdr for inhalation (Anoro Ellipta) clopidogrel 75 mg tablet (Plavix) 75 mg PO DAILY #90 tabs 04/11/24 08/04/24 docusate sodium 100 mg capsule 100 mg PO DAILY #90 caps 04/11/24 08/04/24 (Colace) sildenafil 100 mg tablet 100 mg PO DAILY PRN sexual 05/02/24 08/04/24 activity #5 tabs mupirocin 2 % topical ointment 1 applic topical TID #50 grams 05/10/24 08/04/24 atorvastatin 80 mg tablet 80 mg PO QHS #90 tabs 05/23/24 08/04/24 ezetimibe 10 mg tablet 10 mg PO DAILY #90 tabs 05/23/24 08/04/24 losartan 100 mg tablet 100 mg PO DAILY #90 tabs 06/29/24 08/04/24 pen needle, diabetic 33 gauge x #100 ea 06/29/24 08/04/24 5/32 (Advocate Pen Needle) tamsulosin 0.4 mg capsule 0.8 mg (2 x 0.4 mg) PO DAILY #180 07/10/24 08/04/24 caps rivaroxaban 20 mg tablet 20 mg PO DAILY #90 tabs 07/17/24 08/04/24 benzonatate 100 mg capsule 100 mg PO TID #15 caps 08/02/24 08/04/24 dexamethasone 4 mg tablet 4 mg PO HS #2 tabs 08/02/24 08/04/24 gabapentin 300 mg capsule See Rx Instructions .Route 08/04/24 08/04/24 .COMPLEX #270 caps Previous Rx's ?Medication ?Instructions ?Recorded acetaminophen 650 mg 650 mg PO Q8H PRN Pain ##20 04/30/17 tablet,extended release epinephrine 0.3 mg/0.3 mL 0.3 mg (0.3 mL) IM ONCE #2 ea 03/12/21 injection, auto-injector amlodipine 5 mg tablet 5 mg PO BID #180 tabs 03/18/23 lorazepam 1 mg tablet (Ativan) 1 mg PO DAILY PRN anxiety #2 tabs 05/14/23 blood-glucose meter (FreeStyle #1 ea 06/01/23 Lite Meter kit) nitroglycerin 0.4 mg sublingual 0.4 mg sublingual PRN #25 tab-caps 06/23/23 tablet (Nitrostat) blood sugar diagnostic (Contour #300 ea 07/27/23 Test Strips) dulaglutide 0.75 mg/0.5 mL 0.75 mg (0.5 mL) subcut QWEEK #6 mL 09/22/23 subcutaneous pen injector (Trulicity) finasteride 5 mg tablet 5 mg PO DAILY #90 tabs 09/22/23 fluticasone propionate 50 2 spray NS DAILY #1 g 09/22/23 mcg/actuation nasal spray,suspension insulin glargine 100 unit/mL (3 47 unit (0.47 mL) subcut HS #45 mL 09/22/23 mL) subcutaneous pen lancets 28 gauge (TRUEplus Lancets) #100 ea 09/25/23 pantoprazole 40 mg tablet,delayed 40 mg PO DAILY #90 tabs 10/16/23 release albuterol sulfate 90 mcg/actuation 2 inh inhalation Q6H PRN 12/27/23 aerosol inhaler (Ventolin HFA) bronchospasm #8.5 grams bupropion HCl 150 mg tablet,12 hr 150 mg PO BID #180 tabs 02/28/24 sustained-release umeclidinium 62.5 mcg-vilanterol 1 inh inhalation DAILY #60 ea 03/06/24 25 mcg/actuation powdr for inhalation (Anoro Ellipta) clopidogrel 75 mg tablet (Plavix) 75 mg PO DAILY #90 tabs 04/11/24 docusate sodium 100 mg capsule 100 mg PO DAILY #90 caps 04/11/24 (Colace) sildenafil 100 mg tablet 100 mg PO DAILY PRN sexual 05/02/24 activity #5 tabs mupirocin 2 % topical ointment 1 applic topical TID #50 grams 05/10/24 atorvastatin 80 mg tablet 80 mg PO QHS #90 tabs 05/23/24 ezetimibe 10 mg tablet 10 mg PO DAILY #90 tabs 05/23/24 losartan 100 mg tablet 100 mg PO DAILY #90 tabs 06/29/24 pen needle, diabetic 33 gauge x #100 ea 06/29/24/32 (Advocate Pen Needle) tamsulosin 0.4 mg capsule 0.8 mg (2 x 0.4 mg) PO DAILY #180 07/10/24 caps rivaroxaban 20 mg tablet 20 mg PO DAILY #90 tabs 07/17/24 benzonatate 100 mg capsule 100 mg PO TID #15 caps 08/02/24 dexamethasone 4 mg tablet 4 mg PO HS #2 tabs 08/02/24 gabapentin 300 mg capsule See Rx Instructions .Route 08/04/24 .COMPLEX #270 caps Allergies Allergy/AdvReac Type Severity Reaction Status Date / Time venom-honey bee (bee venom Allergy Severe ANAPHYLAXSI Verified 08/04/24 11:23 (honey bee)) S Sulfa (Sulfonamide Allergy Unknown unknown Verified 08/04/24 11:23 Antibiotics) leflunomide (From Arava) AdvReac Intermediate DIARRHEA Verified 08/04/24 11:23 metformin AdvReac Intermediate diarrhea Verified 08/04/24 11:23 General Stated Complaint: GenMedical STAR: 2 Exam Narrative Exam Narrative: 78-year-old male presenting with acute respiratory distress, pupils equal round reactive to light and accommodation, dry mucous membranes, sinus tachycardia, lungs diminished with wheezes, alert and oriented x 4, no peripheral edema. Distal pulses intact. GCS 15 Course Vital Signs Vital signs: Vital Signs Temperature 37.2 C 08/04/24 10:55 Pulse 99 H 08/04/24 10:55 Respiratory Rate 17 08/04/24 10:55 Blood Pressure 105/74 08/04/24 10:55 Pulse Oximetry 76 L 08/04/24 10:55 Temperature 37.2 C 08/04/24 11:22 Temperature Source Oral 08/04/24 11:22 Pulse 82 08/04/24 13:46 Pulse 88 08/04/24 13:46 Respiratory Rate 32 H 08/04/24 13:46 Respiratory Effort Short of Breath 08/04/24 11:22 Blood Pressure 145/69 H 08/04/24 13:46 Blood Pressure Mean 89 08/04/24 13:46 Blood Pressure Position Sitting 08/04/24 11:22 Pulse Oximetry 94 08/04/24 13:46 Respiratory End-tidal CO2 08/04/24 13:31 Oxygen Delivery Method Cpap 08/04/24 13:33 Oxygen Flow Rate 3 08/04/24 11:48 Fraction of Inspired Oxygen (FIO2) 30 08/04/24 13:41 Pain Level 0 08/04/24 11:22 Lab/Test Results Lab/Test Results: 08/04/24 13:27 Urine - Reflex from Ua Urine Culture - Pending 08/04/24 11:43 Blood Blood Culture - Pending 08/04/24 11:18 Blood Blood Culture - Pending Laboratory Tests Range/Units 08/04/24 08/04/24 08/04/24 11:18 11:18 12:45 WBC (4.4-10.8) 10^3/uL 24.19 H RBC (4.36-5.78) 10^6/uL 4.64 Hgb (13.5-17.5) g/dL 14.8 Hct (40.0-50.0) % 44.0 MCV (80-95) fL 95 MCH (27.0-33.0) pg 31.9 MCHC (32.0-36.0) % 33.6 RDW (11.8-14.1) % 14.3 H Plt Count (130-400) 10^3/uL 172 MPV (8.0-11.0) fL 11.6 H Immature Gran % % 0.9 Neutrophils % % 82.3 Lymphocytes % % 4.8 Monocytes % % 11.5 Eosinophils % % 0.0 Basophils % % 0.5 Nucleated RBC % (0.0-0.3) % 0.0 Absolute Neutrophils (1.2-6.7) 10^3/uL 19.91 H Absolute Lymphocytes (1.2-3.4) 10^3/uL 1.16 L Absolute Monocytes (0.1-0.8) 10^3/uL 2.78 H Absolute Eosinophils (0.0-0.7) 10^3/uL 0.00 Absolute Basophils (0.0-0.2) 10^3/uL 0.12 PT (9.1-11.1) sec 14.3 H INR (0.9-1.1) 1.5 H VBG pH (7.31-7.41) 7.38 VBG pCO2 (41-51) mmHg 42 VBG pO2 mmHg 44 VBG HCO3 (23-28) mmol/L 25 VBG Total CO2 (24-29) mmol/L 22 L VBG O2 Saturation % 77 VBG Base Excess (-2-3) mmol/L 0 VBG Lactate (0.6-1.4) mmol/L 2.1 H Cancelled Sodium (136-145) mmol/L 139 Potassium (3.5-5.1) mmol/L 4.1 Chloride (98-107) mmol/L 104 Carbon Dioxide (21.0-32.0) mmol/L 26.4 Anion Gap (3-11) mmol/L 8.6 BUN (7-18) mg/dL 40 H Creatinine (0.70-1.30) mg/dL 1.5 H Est GFR (CKD-EPI 2020) (mL/min/1.73m2) 47.95 Glucose (74-106) mg/dL 157 H Calcium (8.5-10.1) mg/dL 8.9 Total Bilirubin (0.2-1.0) mg/dL 0.88 AST (15-37) U/L 14 L ALT (16-63) U/L 22 Alkaline Phosphatase (46-116) U/L 77 Troponin I (<or=76) ng/L 12 12 Total Protein (6.4-8.2) g/dL 6.3 L Albumin (3.4-5.0) g/dL 2.8 L Procalcitonin ng/mL 2.49 Urine Color (Yellow) Urine Clarity (Clear) Urine pH (5-8) Ur Specific Hewitt (1.005-1.025) Urine Protein (Neg-Trace) mg/dL Urine Ketones (Negative) mg/dL Urine Blood (Negative) Urine Nitrite (Negative) Urine Bilirubin (Negative) Urine Urobilinogen (Up to 0.2) mg/dL Ur Leukocyte Esterase (Negative) Urine RBC (0-2) HPF Urine WBC (0-5) HPF Ur Epithelial Cells (Negative) HPF Urine Crystals (Negative) HPF Urine Bacteria (Negative) HPF Urine Casts (Negative) LPF Urine Mucus (Negative) Ur Culture Indicated? Urine Glucose (Negative) mg/dL Range/Units 08/04/24 13:27 WBC (4.4-10.8) 10^3/uL RBC (4.36-5.78) 10^6/uL Hgb (13.5-17.5) g/dL Hct (40.0-50.0) % MCV (80-95) fL MCH (27.0-33.0) pg MCHC (32.0-36.0) % RDW (11.8-14.1) % Plt Count (130-400) 10^3/uL MPV (8.0-11.0) fL Immature Gran % % Neutrophils % % Lymphocytes % % Monocytes % % Eosinophils % % Basophils % % Nucleated RBC % (0.0-0.3) % Absolute Neutrophils (1.2-6.7) 10^3/uL Absolute Lymphocytes (1.2-3.4) 10^3/uL Absolute Monocytes (0.1-0.8) 10^3/uL Absolute Eosinophils (0.0-0.7) 10^3/uL Absolute Basophils (0.0-0.2) 10^3/uL PT (9.1-11.1) sec INR (0.9-1.1) VBG pH (7.31-7.41) VBG pCO2 (41-51) mmHg VBG pO2 mmHg VBG HCO3 (23-28) mmol/L VBG Total CO2 (24-29) mmol/L VBG O2 Saturation % VBG Base Excess (-2-3) mmol/L VBG Lactate (0.6-1.4) mmol/L Sodium (136-145) mmol/L Potassium (3.5-5.1) mmol/L Chloride (98-107) mmol/L Carbon Dioxide (21.0-32.0) mmol/L Anion Gap (3-11) mmol/L BUN (7-18) mg/dL Creatinine (0.70-1.30) mg/dL Est GFR (CKD-EPI 2020) (mL/min/1.73m2) Glucose (74-106) mg/dL Calcium (8.5-10.1) mg/dL Total Bilirubin (0.2-1.0) mg/dL AST (15-37) U/L ALT (16-63) U/L Alkaline Phosphatase (46-116) U/L Troponin I (<or=76) ng/L Total Protein (6.4-8.2) g/dL Albumin (3.4-5.0) g/dL Procalcitonin ng/mL Urine Color (Yellow) Yellow Urine Clarity (Clear) Sl Cloudy Urine pH (5-8) 5.5 Ur Specific Hewitt (1.005-1.025) >= 1.030 H Urine Protein (Neg-Trace) mg/dL 30 H Urine Ketones (Negative) mg/dL Negative Urine Blood (Negative) Large H Urine Nitrite (Negative) Negative Urine Bilirubin (Negative) Negative Urine Urobilinogen (Up to 0.2) mg/dL 0.2 Ur Leukocyte Esterase (Negative) Trace H Urine RBC (0-2) HPF >50 H Urine WBC (0-5) HPF 10-20 H Ur Epithelial Cells (Negative) HPF Rare Urine Crystals (Negative) HPF Negative Urine Bacteria (Negative) HPF Rare Urine Casts (Negative) LPF Negative Urine Mucus (Negative) Trace Ur Culture Indicated? Yes Urine Glucose (Negative) mg/dL Negative Medical Decision Making 78-year-old male presenting in acute respiratory distress, hypotensive, meeting sepsis criteria with septic shock criteria and with initial MAP of 53, hypoxia 82% on 3 L. Patient is alert and oriented, he is tired in appearance. 6 cc of DuoNeb administered, methylprednisone 125 mg, IV antibiotics, cefepime for septic shock in the presence of recent admission and COVID-19 diagnosis. Patient was observed and had VBG which was reassuring, however symptoms from a respiratory standpoint worsened and given patient's fatigue, I did initiate CPAP. Patient remains alert and oriented and is tolerating CPAP with some anxiety so 0.5 mg of Ativan was administered. Patient received 1 L of fluid and blood pressure has remained stable at 113/56. Vancomycin and doxycycline were initiated for concern of hospital acquired pneumonia with recent admission and discharge. Patient wishes to remain full CODE STATUS. At this time patient will require admission for acute hypoxic respiratory failure, sepsis, pneumonia, COVID-19. Has required telemetry monitoring, interpretation of labs includes acute leukocytosis with a white blood cell count of 24,000 lactic acidosis 2.1, left shift with neutrophil count of 19,000 procalcitonin elevation at 2.5 acute renal insufficiency with a creatinine of 1.5 and a BUN of 40 likely secondary to dehydration. Case discussed with admitting hospitalist nurse practitioner who is excepted patient to her service Quality:SDOH Health Related Social Needs: Health related social needs details difficulty obtaining meds due to cost Critical Care Time Critical Care Time Attestation: 45 minutes of critical care time secondary to acute respiratory failure COVID-19, pneumonia, requiring telemetry monitoring, hypotension with septic shock requiring IV fluids, IV steroids, CT imaging interpretation secondary to fall, discussion with radiologist regarding findings, CPAP initiation secondary to acute respiratory failure, IV antibiotics for hospital-acquired pneumonia, diagnostic lab interpretation review, discussion with admitting hospitalist [facility] All Active Problems (Updated 08/05/24 @ 09:52 by Igor Mauro MD) Acute hyperactive delirium due to multiple etiologies (Acute) Hospital acquired PNA (Acute) Severe sepsis (Acute) COVID-19 (Acute) CORINE (acute kidney injury) (Acute) Pneumonia (Acute) Respiratory failure (Acute) BPH w urinary obs/LUTS (Acute) CAD (coronary artery disease) (Chronic) Fall (Acute) COVID-19 (Acute) Acute hypoxic respiratory failure (Acute) COVID (Acute) Pulmonary embolism (Chronic) Chronic otitis externa of both ears (Acute) Acute serous otitis media, right ear (Acute) Acute otitis externa of right ear (Acute) Internal nasal lesion (Acute) Pulmonary fibrosis (Acute) Acute otitis externa of left ear (Acute) Hypertension (Chronic) same meds, good BP here today Ear pain, right (Acute) Impetigo (Acute) [place] (dyspnea on exertion) (Acute) Cellulitis (Acute) Epistaxis (Acute) Nasal vestibulitis (Acute) Sensorineural hearing loss, bilateral (Acute) Impacted cerumen, bilateral (Acute) Weight loss (Acute) Elevated PSA, between 10 and less than 20 ng/ml (Acute) Chronic obstructive lung disease (Chronic) pulmonary fibrosis on chest xray ongoing tobacco use add back budesonide nebs to see if we can improve cough Diabetes mellitus (Chronic 05/05/13) check A1c and creat Gastroesophageal reflux disease (Chronic) Hyperlipidemia (Chronic 05/05/13) Kidney stone (Acute 09/14/14) recurrent x3 on left [facility] [place] [facility] Urology 10/12/16-[facility]; F/U Dr. Fair Male erectile disorder (Acute 08/29/13) Palpitations (Acute 11/04/12) multiple PVCs, bradycardia (2013) ([facility] [place] [facility], Dr Abraham, echo normal LVEF and stress test neg ischemia) Rheumatoid arthritis (Chronic 05/05/13) [facility] [place], Dr Leon Smoker (Chronic) Tubular adenoma (Acute) 11/20 COLONOSCOPY: ONE TUBULOVILLOUS ADENOMA & TWO TUBULAR ADENOMAS. 05/22/13: DR. Mateusz COPELAND:TUBULAR ADENOMAS 11/13/16: Dr Jian Crump: tublular and tubulovillous adenomas Erectile dysfunction (Chronic) Lipoma (Acute) Depressive disorder (Chronic) RCA occlusion (Acute) 05/25/19 [facility] [place] Bradycardia (Acute) Cigarette smoker (Acute) Fatigue (Acute) Chronic knee pain (Acute) Arthritis of knee, right (Acute) Bilateral hip joint arthritis (Acute) Degenerative lumbar spinal stenosis (Acute) Adenomatous polyps (Acute) Serrated adenoma of colon (Acute ~07/2020) Mallet deformity of left ring finger (Acute 11/30/20) with avulsion fracture Anaphylaxis due to hymenoptera venom (Acute) Cellulitis of ear (Acute) Aortic atherosclerosis (Acute) Emphysema lung (Acute) Tubular adenoma of colon (Acute) COPD with acute exacerbation (Acute) 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) Cardiomyopathy (Acute) Otitis externa, left (Acute) Medical History Right shoulder pain COPD exacerbation Pneumonia Eczema Hypoxemia Sepsis COPD (chronic obstructive pulmonary disease) BPH loc w urin obs/LUTS Myocardial infarction 2020 x2 stents CVA (cerebral vascular accident) (11/21/17) ASCVD (arteriosclerotic cardiovascular disease) (05/05/13) 2 NEW STENTS 04/22 H/O IMI; angioplasty and stent; [place] , 02/11; CVA/TIA Surgical History Stented coronary artery 05/25/19 [facility] [place]; s/p stent of old stent-KB History of incisional hernia repair History of knee surgery RESECTION ANGIOFIBROMA;RIGHT FOOT 02/04/18 KNEE REPAIR RIGHT Hernia Repair, Incisional Excision, Lipoma (05/19/16) posterior neck Colostomy (~2006) TEMP W/ REVISION Colonoscopy - MAC (11/13/16) Colonoscopy - MAC (05/16/13) Family History Mother Essential hypertension Heart disease Stroke Father Stroke Brother Heart disease Family History Diabetes Heart disease Cancer Brother No problems noted. Brother No problems noted. Sister No problems noted. Sister Alcohol abuse Social History Smoking/Tobacco Use Status: Current every day Tobacco Type: cigarettes Tobacco: How many years used: 60 Quit status: has quit before Second Hand Exposure: Yes Smoking risk assessment performed?: Yes Alcohol Intake: former Drug use: Never Substance use type: does not use Household members: family Housing: house Communication Needs: None Do you need help understanding health information?: Rarely Pets and animals: Yes Pets and animals: cat(s) Sexually active: No Current gender identity: male What is your relationship status?: How often do you talk on the phone with friends or family?: three or more times per week How often do you get together with friends or relatives?: twice per week How often do you attend orthodoxy or orthodoxy services?: decline to answer Do you belong to any clubs or organized social groups?: no Panel score (0-1 are the most socially isolated patients): 1 What type of physical activity do you participate in: walking Duration: < 15 minutes/day Frequency: 1-2 times per week Monika/Synagogue: None Special monika needs: No Seatbelt use: sometimes Helmet use: No Drive intox or ride w/intox 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
[2024-08-04] MEDS: LORazepam 2 MG/ML VIAL 0.5 MG IVP ×3 (14:31→23:59)
[2024-08-04] MEDS: VANCOMYCIN/WATER (PEG) 2 GM/400 ML BAG IVPB (14:56)
--- NOTE | 2024-08-04 15:05 | W.PM.HP.N ---
Date of service: 08/04/24 Time of Service: 15:05 Assessment and Plan Assessment and plan (1) Severe sepsis: Status: Acute Assessment and plan: - Patient met criteria for severe sepsis with a heart regular 100, white blood cell count of 24, source of infection being right lower lobe post COVID hospital-acquired pneumonia, creatinine of 1.5 (baseline 1.0), and a lactic acid of 2.1 -Repeat lactic was not ordered in the emergency department, and is currently pending as of 17:20 -Was started on vancomycin and cefepime in the emergency department, will continue -Follow-up a.m. CBC (2) Hospital acquired PNA: Status: Acute Assessment and plan: - Patient was recently hospitalized for COVID-19, therefore will be covered for hospital-acquired pneumonia likely in combination with post COVID-pneumonia (3) Acute hypoxic respiratory failure: Status: Acute Assessment and plan: - Secondary to severe sepsis and hospital-acquired pneumonia as noted above -Of note, when patient was recently hospitalized for COVID-19 he had been on room air for greater than 24 hours prior to discharge -Currently requiring about 3 L nasal cannula or 28% FiO2 when on CPAP -Wean as tolerated with goal oxygen saturation between 88 and 92% (4) Pulmonary fibrosis: Status: Acute Assessment and plan: - Without acute exacerbation -Was given methylprednisolone in the emergency department, will continue to monitor patient and decide whether or not he should be started on p.o. prednisone in the morning (5) CAD (coronary artery disease): Status: Chronic Assessment and plan: - Continue home atorvastatin, aspirin -Holding home amlodipine and lisinopril as patient was noted as having low normal blood pressure in the emergency department (6) Pulmonary embolism: Status: Chronic Assessment and plan: - Continue home Xarelto (7) Diabetes mellitus: Status: Chronic Assessment and plan: - N.p.o. at this time on CPAP -Will be on sliding scale insulin, every 6 at this time on p.o. Qualifiers: Diabetes mellitus complication status: without complication Diabetes mellitus fpc insulin use: without fpc use Diabetes mellitus type: type 2 Qualified Code(s): E11.9 - Type 2 diabetes mellitus without complications History of Present Illness History of Present Illness Chief Complaint: shortness of breath, falls Narrative: 78-year-old gentleman with a past medical history coronary artery disease, hypertension, pulmonary fibrosis, COPD, recent hospitalization at [facility] for acute hypoxic respiratory failure secondary to COVID-19 for which he was discharged on 08/02/2024 ultimately being weaned to room air presents back to the emergency department with worsening shortness of breath chills and subjective fevers. Patient states that since being discharged he was feeling well until the evening of 08/03/2024 where he began to feel chills, and having fallen earlier this morning hitting his head though he did not report any loss of consciousness. He states that he feels weak but denies any lightheadedness, dizziness, chest pain, nausea vomiting or diarrhea. In the emergency department the patient was noted as being hypoxic requiring 3 L nasal cannula and was subsequently transitioned to CPAP for comfort which did improve his tachypnea. He was also noted as being tachycardic with heart rate greater than 100, his CBC showed that he had a white count of 24, BMP showed an CORINE with a creatinine of 1.5 (baseline 1.0), and a lactic acid of 2.1. Patient was started on vancomycin and cefepime and had chest CT that showed significant right lower lobe consolidation. Patient also had low normal blood pressures that improved after IV fluid rehydration in the emergency department. Which time emergency room PA paged hospitalist for admission for patient with severe sepsis secondary to hospital-acquired pneumonia secondary to recent COVID-19 infection. Review of Systems All systems reviewed & are unremarkable except as noted in HPI and below PFSH All Active Problems (Updated 08/04/24 @ 16:38 by GEORGE GIVENS) Hospital acquired PNA (Acute) Severe sepsis (Acute) COVID-19 (Acute) CORINE (acute kidney injury) (Acute) Pneumonia (Acute) Respiratory failure (Acute) BPH w urinary obs/LUTS (Acute) CAD (coronary artery disease) (Chronic) Fall (Acute) COVID-19 (Acute) Acute hypoxic respiratory failure (Acute) COVID (Acute) Pulmonary embolism (Chronic) Chronic otitis externa of both ears (Acute) Acute serous otitis media, right ear (Acute) Acute otitis externa of right ear (Acute) Internal nasal lesion (Acute) Pulmonary fibrosis (Acute) Acute otitis externa of left ear (Acute) Hypertension (Chronic) same meds, good BP here today Ear pain, right (Acute) Impetigo (Acute) LANGSTON (dyspnea on exertion) (Acute) Cellulitis (Acute) Epistaxis (Acute) Nasal vestibulitis (Acute) Sensorineural hearing loss, bilateral (Acute) Impacted cerumen, bilateral (Acute) Weight loss (Acute) Elevated PSA, between 10 and less than 20 ng/ml (Acute) Chronic obstructive lung disease (Chronic) pulmonary fibrosis on chest xray ongoing tobacco use add back budesonide nebs to see if we can improve cough Diabetes mellitus (Chronic 05/05/13) check A1c and creat Gastroesophageal reflux disease (Chronic) Hyperlipidemia (Chronic 05/05/13) Kidney stone (Acute 09/14/14) recurrent x3 on left [facility] – [place] 10/12/16-[facility]; F/U Dr. Fair Male erectile disorder (Acute 08/29/13) Palpitations (Acute 11/04/12) multiple PVCs, bradycardia (2013) ([facility] [place], Dr Abraham, echo normal LVEF and stress test neg ischemia) Rheumatoid arthritis (Chronic 05/05/13) [facility] – [place], Dr Leon Smoker (Chronic) Tubular adenoma (Acute) 11/20 COLONOSCOPY: ONE TUBULOVILLOUS ADENOMA & TWO TUBULAR ADENOMAS. 05/22/13: DR. Mateusz COPELAND:TUBULAR ADENOMAS 11/13/16: Dr Jian Crump: tublular and tubulovillous adenomas Erectile dysfunction (Chronic) Lipoma (Acute) Depressive disorder (Chronic) RCA occlusion (Acute) 05/25/19 [facility] [place] Bradycardia (Acute) Cigarette smoker (Acute) Fatigue (Acute) Chronic knee pain (Acute) Arthritis of knee, right (Acute) Bilateral hip joint arthritis (Acute) Degenerative lumbar spinal stenosis (Acute) Adenomatous polyps (Acute) Serrated adenoma of colon (Acute ~07/2020) Mallet deformity of left ring finger (Acute 11/30/20) with avulsion fracture Anaphylaxis due to hymenoptera venom (Acute) Cellulitis of ear (Acute) Aortic atherosclerosis (Acute) Emphysema lung (Acute) Tubular adenoma of colon (Acute) COPD with acute exacerbation (Acute) 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) Cardiomyopathy (Acute) Otitis externa, left (Acute) Medical History Right shoulder pain COPD exacerbation Pneumonia Eczema Hypoxemia Sepsis COPD (chronic obstructive pulmonary disease) BPH loc w urin obs/LUTS Myocardial infarction 2020 x2 stents CVA (cerebral vascular accident) (11/21/17) ASCVD (arteriosclerotic cardiovascular disease) (05/05/13) 2 NEW STENTS 04/22 H/O IMI; angioplasty and stent; PR , 02/11; CVA/TIA Surgical History Stented coronary artery 05/25/19 [facility] – [place]; s/p stent of old stent-KB History of incisional hernia repair History of knee surgery RESECTION ANGIOFIBROMA;RIGHT FOOT 02/04/18 KNEE REPAIR RIGHT Hernia Repair, Incisional Excision, Lipoma (05/19/16) posterior neck Colostomy (~2006) TEMP W/ REVISION Colonoscopy - MAC (11/13/16) Colonoscopy - MAC (05/16/13) Family History Mother Essential hypertension Heart disease Stroke Father Stroke Brother Heart disease Family History Diabetes Heart disease Cancer Brother No problems noted. Brother No problems noted. Sister No problems noted. Sister Alcohol abuse Social History Smoking/Tobacco Use Status: Current every day Tobacco Type: cigarettes Tobacco: How many years used: 60 Quit status: has quit before Second Hand Exposure: Yes Smoking risk assessment performed?: Yes Alcohol Intake: former Drug use: Never Substance use type: does not use Household members: family Housing: house Communication Needs: None Do you need help understanding health information?: Rarely Pets and animals: Yes Pets and animals: cat(s) Sexually active: No Current gender identity: male What is your relationship status?: How often do you talk on the phone with friends or family?: three or more times per week How often do you get together with friends or relatives?: twice per week How often do you attend orthodoxy or yazidi services?: decline to answer Do you belong to any clubs or organized social groups?: no Panel score (0-1 are the most socially isolated patients): 1 What type of physical activity do you participate in: walking Duration: < 15 minutes/day Frequency: 1-2 times per week Monika/Bahai: None Special monika needs: No Seatbelt use: sometimes Helmet use: No Drive intox or ride w/intox hazardous materials tanker driver: No Do you feel safe at home: Yes Do you feel safe in your relationship?: Yes Additional Social history: Lives with son Meds Allergies and Home Medications Allergies Allergy/AdvReac Type Severity Reaction Status Date / Time venom-honey bee (bee venom Allergy Severe ANAPHYLAXSI Verified 08/04/24 11:23 (honey bee)) S Sulfa (Sulfonamide Allergy Unknown unknown Verified 08/04/24 11:23 Antibiotics) leflunomide (From Arava) AdvReac Intermediate DIARRHEA Verified 08/04/24 11:23 metformin AdvReac Intermediate diarrhea Verified 08/04/24 11:23 Home Medications ?Medication ?Instructions ?Recorded ?Confirmed ?Type inhalational spacing device (Space ##1 05/27/15 08/04/24 History Chamber Plus) infliximab 100 mg intravenous 1,000 mg IV .[id number] 05/31/15 08/04/24 History solution (Remicade) acetaminophen 650 mg 650 mg PO Q8H PRN Pain ##20 04/30/17 08/04/24 Rx tablet,extended release epinephrine 0.3 mg/0.3 mL 0.3 mg (0.3 mL) IM ONCE #2 ea 03/12/21 08/04/24 Rx injection, auto-injector aspirin 81 mg chewable tablet 81 mg PO DAILY 05/27/21 08/04/24 History amlodipine 5 mg tablet 5 mg PO BID #180 tabs 03/18/23 08/04/24 Rx lorazepam 1 mg tablet (Ativan) 1 mg PO DAILY PRN anxiety #2 tabs 05/14/23 08/04/24 Rx blood-glucose meter (FreeStyle #1 ea 06/01/23 08/04/24 Rx Lite Meter kit) nitroglycerin 0.4 mg sublingual 0.4 mg sublingual PRN #25 tab-caps 06/23/23 08/04/24 Rx tablet (Nitrostat) blood sugar diagnostic (Contour #300 ea 07/27/23 08/04/24 Rx Test Strips) dulaglutide 0.75 mg/0.5 mL 0.75 mg (0.5 mL) subcut QWEEK #6 mL 09/22/23 08/04/24 Rx subcutaneous pen injector (Trulicity) finasteride 5 mg tablet 5 mg PO DAILY #90 tabs 09/22/23 08/04/24 Rx fluticasone propionate 50 2 spray NS DAILY #1 g 09/22/23 08/04/24 Rx mcg/actuation nasal spray,suspension insulin glargine 100 unit/mL (3 47 unit (0.47 mL) subcut HS #45 mL 09/22/23 08/04/24 Rx mL) subcutaneous pen lancets 28 gauge (TRUEplus Lancets) #100 ea 09/25/23 08/04/24 Rx pantoprazole 40 mg tablet,delayed 40 mg PO DAILY #90 tabs 10/16/23 08/04/24 Rx release albuterol sulfate 90 mcg/actuation 2 inh inhalation Q6H PRN 12/27/23 08/04/24 Rx aerosol inhaler (Ventolin HFA) bronchospasm #8.5 grams bupropion HCl 150 mg tablet,12 hr 150 mg PO BID #180 tabs 02/28/24 08/04/24 Rx sustained-release loratadine 10 mg capsule 10 mg PO DAILY PRN 03/06/24 08/04/24 History umeclidinium 62.5 mcg-vilanterol 1 inh inhalation DAILY #60 ea 03/06/24 08/04/24 Rx 25 mcg/actuation powdr for inhalation (Anoro Ellipta) clopidogrel 75 mg tablet (Plavix) 75 mg PO DAILY #90 tabs 04/11/24 08/04/24 Rx docusate sodium 100 mg capsule 100 mg PO DAILY #90 caps 04/11/24 08/04/24 Rx (Colace) sildenafil 100 mg tablet 100 mg PO DAILY PRN sexual 05/02/24 08/04/24 Rx activity #5 tabs mupirocin 2 % topical ointment 1 applic topical TID #50 grams 05/10/24 08/04/24 Rx atorvastatin 80 mg tablet 80 mg PO QHS #90 tabs 05/23/24 08/04/24 Rx ezetimibe 10 mg tablet 10 mg PO DAILY #90 tabs 05/23/24 08/04/24 Rx losartan 100 mg tablet 100 mg PO DAILY #90 tabs 06/29/24 08/04/24 Rx pen needle, diabetic 33 gauge x #100 ea 06/29/24 08/04/24 Rx 5/32 (Advocate Pen Needle) tamsulosin 0.4 mg capsule 0.8 mg (2 x 0.4 mg) PO DAILY #180 07/10/24 08/04/24 Rx caps rivaroxaban 20 mg tablet 20 mg PO DAILY #90 tabs 07/17/24 08/04/24 Rx benzonatate 100 mg capsule 100 mg PO TID #15 caps 08/02/24 08/04/24 Rx dexamethasone 4 mg tablet 4 mg PO HS #2 tabs 08/02/24 08/04/24 Rx gabapentin 300 mg capsule See Rx Instructions .Route 08/04/24 08/04/24 Rx .COMPLEX #270 caps Exam Narrative Exam Narrative: Frail-appearing older gentleman laying in bed in no acute distress, CPAP in place, awake and's to verbal stimuli, alert, oriented to person and place, heart regular rhythm, lungs with diminished breath sounds in right base and coarse breath sounds throughout, abdomen soft, nontender, nondistended Results Labs 08/04/24 11:18 08/04/24 11:18 Labs: Laboratory Results - last 24 hr 08/04/24 08/04/24 08/04/24 11:18 11:18 12:45 WBC 24.19 H RBC 4.64 Hgb 14.8 Hct 44.0 MCV 95 MCH 31.9 MCHC 33.6 RDW 14.3 H Plt Count 172 MPV 11.6 H Immature Gran % 0.9 Neutrophils % 82.3 Lymphocytes % 4.8 Monocytes % 11.5 Eosinophils % 0.0 Basophils % 0.5 Nucleated RBC % 0.0 Absolute Neutrophils 19.91 H Absolute Lymphocytes 1.16 L Absolute Monocytes 2.78 H Absolute Eosinophils 0.00 Absolute Basophils 0.12 PT 14.3 H INR 1.5 H VBG pH 7.38 VBG pCO2 42 VBG pO2 44 VBG HCO3 25 VBG Total CO2 22 L VBG O2 Saturation 77 VBG Base Excess 0 VBG Lactate 2.1 H Cancelled Sodium 139 Potassium 4.1 Chloride 104 Carbon Dioxide 26.4 Anion Gap 8.6 BUN 40 H Creatinine 1.5 H Est GFR (CKD-EPI 2020) 47.95 Glucose 157 H Calcium 8.9 Total Bilirubin 0.88 AST 14 L ALT 22 Alkaline Phosphatase 77 Troponin I 12 12 Total Protein 6.3 L Albumin 2.8 L Procalcitonin 2.49 Urine Color Urine Clarity Urine pH Ur Specific [place] Urine Protein Urine Ketones Urine Blood Urine Nitrite Urine Bilirubin Urine Urobilinogen Ur Leukocyte Esterase Urine RBC Urine WBC Ur Epithelial Cells Urine Crystals Urine Bacteria Urine Casts Urine Mucus Ur Culture Indicated? Urine Glucose 08/04/24 13:27 WBC RBC Hgb Hct MCV MCH MCHC RDW Plt Count MPV Immature Gran % Neutrophils % Lymphocytes % Monocytes % Eosinophils % Basophils % Nucleated RBC % Absolute Neutrophils Absolute Lymphocytes Absolute Monocytes Absolute Eosinophils Absolute Basophils PT INR VBG pH VBG pCO2 VBG pO2 VBG HCO3 VBG Total CO2 VBG O2 Saturation VBG Base Excess VBG Lactate Sodium Potassium Chloride Carbon Dioxide Anion Gap BUN Creatinine Est GFR (CKD-EPI 2020) Glucose Calcium Total Bilirubin AST ALT Alkaline Phosphatase Troponin I Total Protein Albumin Procalcitonin Urine Color Yellow Urine Clarity Sl Cloudy Urine pH 5.5 Ur Specific [place] >= 1.030 H Urine Protein 30 H Urine Ketones Negative Urine Blood Large H Urine Nitrite Negative Urine Bilirubin Negative Urine Urobilinogen 0.2 Ur Leukocyte Esterase Trace H Urine RBC >50 H Urine WBC 10-20 H Ur Epithelial Cells Rare Urine Crystals Negative Urine Bacteria Rare Urine Casts Negative Urine Mucus Trace Ur Culture Indicated? Yes Urine Glucose Negative Last Vital Signs Temp 99 F 08/04/24 11:22 Pulse 82 08/04/24 13:46 Resp 32 H 08/04/24 13:46 BP 145/69 H 08/04/24 13:46 Pulse Ox 94 08/04/24 13:46 Time Spent Time spent with Patient: >75 minutes Time was spent: preparing to see the patient(eg.review tests), obtaining and/or reviewing separately otained hiistory, ordering medications,tests, procedures, referring, communicating with other health laboratory animal caretaker, indepentently interpreting results, counseling the patient and care coordination
[2024-08-04 15:20] LABS: Troponin I 13 ng/L (<or=76)
--- NOTE | 2024-08-04 16:44 | RESPIRATORY ---
Pulmonary Clinic had put in new home O2 order this morning through [facility] to wear 3L at baseline
[2024-08-04] MEDS: Normal Saline Flush 10 ML SYR IVP ×3 (17:00→18:34)
[2024-08-04] MEDS: Insulin Aspart 300 UNITS/3 ML PEN SC ×2 (18:30→23:06)
[2024-08-04 19:14] LABS: Lactate 2.7 mmol/L (0.6-1.4)
[2024-08-04] MEDS: Normal Saline 1,000 ML 125 ML IV (19:45)
[2024-08-04] MEDS: diazePAM 10 MG/2 ML SYR 2.5 MG IVP (19:53)
--- NOTE | 2024-08-04 20:30 | NUR.NOTE ---
Nursing Note: Dr Blair in to see pt at bedside, updated on pt's condition, pt's daughter and her at bedside, will monitor, MEDICAL SECRETARY RECEPTIONIST at bedside.
--- NOTE | 2024-08-04 21:21 | CE_ITS ---
Date of service: 08/04/24 Time of Service: 20:35 Event Note: I was called in 20:00 by the ICU nurse. Patient also was hospitalized to the ICU because of hospital-acquired pneumonia over his right lung dove with hypoxemia but no hypercapnia. He does have a recent active COVID infection. The attending nurse stated that the patient was agitated and had a brief loss of consciousness episode after receiving IV Valium 2.5 mg for agitation which was escalating over the last hour. He had received 0.5 mg of Ativan earlier in the ED for agitation and appeared to be having increased confusion though he was not hypoxic and his VBG did reveal a markedly low pCO2 with patient hyperventilating. He continued to have mild acidosis by VBG pH with metabolic acidosis and increasing lactic acid with his hospital-acquired right pneumonia. The patient was on O2 nasal cannula to maintain his pulse ox of about 90%. The patient was recently hospitalized for acute COVID infection with hypoxemia now with repeat hospitalization for hospital-acquired pneumonia. 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 He was becoming violent and at risk of harming himself and staff with security sitting with the patient until he had 0.5 mg of IV Ativan. The patient was sleeping at the time I saw him at 20:30. He was breathing comfortably with mild snoring and his lung exam did reveal tachypnea with a respiratory rate about 30 and bronchovesicular breath sounds with fair aeration over the left hemithorax but egophony and decreased aeration of the right hemithorax. He did not have expiratory wheeze. He did have mild tachycardia which was improving with sedation. His airway was guarded with spontaneous respirations though he was having sonorous upper airway sounds which improved when his chin was adjusted with slight elevation of his head at 45 degrees. His abdomen was soft and flat contour with his extremities without cyanosis or edema and skin was moist and warm. He was having no focal neurological deficits and moving all extremities though sedated. His cardiac rn did show sinus tachycardia with narrow complexes and normal ST segments. He is on Xarelto for recent PE. He does have a history of CAD status post stenting in the past. He had family in the room whenever I examined him and I did review his case with them. He had stripped himself off his clothing and ripped the CPAP off during his escalation of behavior, therefore we will continue high flow O2 with patient oxygenating well and breathing on his own without airway obstruction. To avoid escalation of behavior again with derrick johnsonmaynor harm to self and staff, Precedex infusion was initiated without bolus and patient was comfortable and sleeping with no respiratory compromise. He will be monitored with capnography. 0.5 mg of Ativan IV was ordered every 2 hours if needed but should be avoided with Precedex titration if possible. The patient is a full code with intubation but would like to avoid intubation and mechanical ventilation with his advanced chronic respiratory disease. Over the last year he has lost weight and has escalation of his chronic medical conditions requiring patient to live with his son. His CODE STATUS needs to be reevaluated. The patient did state he wanted to but was delirious at the time. Patient will be monitored in ICU and Precedex infusion will not be used more than 24 hours per protocol. Precedex will be titrated to behavior and attempt to avoid low-dose IV Ativan as stated. He will have gentle IV hydration for 1 L of normal saline with his lactic acidosis. Repeat VBG with lactic acid and troponin will be done early in the morning. The patient family stayed with him until he was sedated and calm and live around the corner to return if needed. I did fully review the situation with his daughter and son-in-law who are closest to the patient. Time Spent with Patient Time spent in critical care(minutes): 45 Time Spent Included: Coordination of care, Chart review, Documenting critically ill care, Time at immediate bedside, Discussing critically ill care with other medical staff and Discussing Hx and/or treatment with family
[2024-08-04] MEDS: dexmedeTOMidine IN 0.9 % NACL 400 MCG/100 ML BTL IV (21:57)
[2024-08-04] MEDS: CEFEPIME 2 GM in Normal Saline 100 ML IVPB (23:02)
[2024-08-05] VITALS (107 sets, daily range): BP systolic 149–201; BP diastolic 56–101; PULSE 54–91; RESP 17–47; TEMP 34–38.1; O2SAT 81–94
[2024-08-05 02:07] LABS: BE (Venous) -2 mmol/L (-2-3); HCO3 (Venous) 24 mmol/L (23-28); O2 Sat (Venous) 97 %; TCO2 (Venous) 21 mmol/L (24-29); pCO2 (Venous) 42 mmHg (41-51); pH (Venous) 7.36 (7.31-7.41); pO2 (Venous) 84 mmHg
[2024-08-05 02:09] LABS: Lactate 1.1 mmol/L (0.6-1.4)
[2024-08-05] MEDS: dexmedeTOMidine IN 0.9 % NACL 400 MCG/100 ML BTL 15.785 MCG IV (02:16)
[2024-08-05 02:30] LABS: Troponin I 10 ng/L (<or=76)
--- NOTE | 2024-08-05 03:05 | NUR.NOTE ---
Nursing Note: Staff emergency called, security and nursing mineral wool insulation supervisor notified, spoke to Dr Blair, pt extremely agitated and restless, combative, trying to hit staff and remove medical equipment, please see orders given, bilateral wrist restraints applied
--- NOTE | 2024-08-05 03:30 | NUR.NOTE ---
Nursing Note: Pt's daughter Virginie, calm, states this has happened to him before on prior ICU admission, at bedside speaking to Dr Maynard regarding patients status
[2024-08-05] MEDS: Midazolam 2 MG/2 ML VIAL 5 MG IVP (03:34)
[2024-08-05] MEDS: Droperidol 5 MG/2 ML VIAL 2.5 MG IM (03:35)
--- NOTE | 2024-08-05 03:39 | NUR.NOTE ---
Nursing Note:This RN responded to a code nickerson. The patient was highly agitated despite the medications he was on. MD was paged to the floor and ordered for medications to assist in helping the patient calm down. RN followed verbal instructions for 5mg of Versed and 2.5mg of Droperidol. Versed was given IVP. Droperidol was given IM. Jose Patel RN verified medication dosages prior to him administering the medication. Benadryl was ordered and then was ordered to hold. No Benadryl was administered. supervisor electronics inspection was present for this event. MD was present for this event.
[2024-08-05] MEDS: Normal Saline Flush 10 ML SYR IVP ×6 (04:05→21:35)
[2024-08-05] MEDS: diphenhydrAMINE 50 MG/ML VIAL 25 MG IM/IVP (04:07)
[2024-08-05] MEDS: Normal Saline 1,000 ML 125 ML IV ×3 (04:11→21:13)
--- NOTE | 2024-08-05 06:04 | W.EVENT ---
Date of service: 08/05/24 Time of Service: 03:33 Event Note: I was called acutely back to the ICU to attend the patient who had a Garcia placed because of urinary retention of over 600 cc awake and off the Precedex infusion. It took multiple people to hold him down though there were some minor injuries to staff and patient and he did require 4 point restraints for less than 5 minutes which was released with soft restraints after patient had called down with IV Versed, Haldol and Benadryl. He had already received Ativan for breakthrough agitation as he was escalating prior to requiring restraints. His daughter did attend the patient upon request and he was slightly agitated which was when he received the Benadryl dose. The Garcia catheter remained with dark urine output and his physical examination had no other changes. He continues to be delirious and agitated when awake. While at the patient he was on the Precedex infusion with intermittent Versed dosing if needed. I had a long talk with the daughter present and with her younger sister, Kandis Cooley who agrees to discussion of changing CODE STATUS which was filled out on the COLST. Conversation and body is to sign the changes status to DNR/DNI but not comfort measures as of yet. This will be done when she arrives to the hospital and agrees with document. I signed the document per verbal consent given. I did not change his order for CODE STATUS until Greg lorenzo signed the calls. The present sister who is the oldest sibling agreed with this plan. We are continuing to treat reversible problems for now. Time Spent with Patient Time spent in critical care(minutes): 30 Time Spent Included: Coordination of care, Chart review, Documenting critically ill care, Time at immediate bedside, Discussing critically ill care with other medical staff and Discussing Hx and/or treatment with family
[2024-08-05 06:34] LABS: HCT 43.8 % (40.0-50.0); HGB 14.8 g/dL (13.5-17.5); MCH 31.4 pg (27.0-33.0); MCHC 33.8 % (32.0-36.0); MCV 93 fL (80-95); MPV 12.1 fL (8.0-11.0); Platelet Count 167 10^3/uL (130-400); RBC 4.71 10^6/uL (4.36-5.78); RDW-SD 48.3 fL; WBC 20.12 10^3/uL (4.4-10.8)
[2024-08-05 07:08] LABS: Anion Gap 9.3 mmol/L (3-11); BUN 31 mg/dL (7-18); CO2 24.7 mmol/L (21.0-32.0); Calcium 8.7 mg/dL (8.5-10.1); Chloride 106 mmol/L (98-107); Glucose 144 mg/dL (74-106); Potassium 3.7 mmol/L (3.5-5.1); Sodium 140 mmol/L (136-145)
[2024-08-05] MEDS: dexmedeTOMidine IN 0.9 % NACL 400 MCG/100 ML BTL 29.597 MCG IV ×6 (07:33→22:11)
--- NOTE | 2024-08-05 08:54 | INITIAL_ITS ---
Date of service: 08/05/24 Time of Service: 08:54 Care Management Initial Assmt Initial Assessment Reason for Hospitalization: sepsis, pneumonia Functional Status/Living Situation Patient Presentation: Scot was admitted through the ER yesterday after falling in the morning and hitting his head, and feeling weak. He had just been discharged from the hospital on 08/02, after being treated for Covid. He reportedly had a very tough night with increased confusion and some combativeness. His respiratory status is poor, he is requiring High Flow O2 and is breathing rapidly. He remains on Precedex at max dose, is receiving PRN ativan and he was still agitated. Required IV haldol this afternoon. His code status has been changed to DNR/DNI, and family has been present most of the day. As Lawrence is still covid positive, was unable to visit, and did not visit with family at this time as they have been present with the patient. Due to Covid status, visiting has been restricted to 2 visitors per day, for now. RN supervisor ore dressing spoke to family about this today, with the understanding that if Lawrence's status becomes dire, there will be no visiting restrictions. Plan per provider: If Lawrence improves, we will continue to treat. If he does not improve, we will readdress and likely go to comfort measures. Town of Residence: [place] Resides with: Child (son, Scot) Significant Other/Family: Local (daughters Virginie Marquis and Una are supportive and live locally. 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) Instrumental Activities of Daily Living (ADLs): Independent (prior to admission) Physical Functioning/Mobility Assistive Device: cane Advance Directives Advance Directives: Do you have an Advance Directive: Y 09/25/22 11:57 AD On File at [facility]: Y 09/25/22 11:57 Date Asked 08/04/24 08/04/24 11:05 AD Date Reviewed 07/01/24 07/17/24 07:59 COLST On File at [facility] COLST Date Scanned Code Status Resuscitation Status DNR/DNI Insurance Coverage/Financial Issues Insurance: Medicare [facility] financial assistance at 100% Financial Issues: struggles a bit Care Team Visit Care Team Role Provider Type Mike Burns MD Primary Care Provider [facility] STAFF PHYSICIAN HANNAH Huynh Emergency Provider [facility] [employer] SPECIALIST Igor Mauro MD Admit Provider [facility] STAFF PHYSICIAN Attending Provider Discharge Potential Discharge Needs: PT Evaluation and PCP F/U Appt Anticipated Barriers to Discharge: Medical Status Patient/Family Education Needs: Review discharge instructions, discuss Ask Me Three Transportation: Other (dependent on disposition) Plan: Scot's discharge plan is uncertain at this time, and is dependant on how he responds to treatment. Transportation will be determined on disposition. CM will continue to follow. PFSH All Active Problems (Updated 08/05/24 @ 09:52 by Igor Mauro MD) Acute hyperactive delirium due to multiple etiologies (Acute) Hospital acquired PNA (Acute) Severe sepsis (Acute) COVID-19 (Acute) CORINE (acute kidney injury) (Acute) Pneumonia (Acute) Respiratory failure (Acute) BPH w urinary obs/LUTS (Acute) CAD (coronary artery disease) (Chronic) Fall (Acute) COVID-19 (Acute) Acute hypoxic respiratory failure (Acute) COVID (Acute) Pulmonary embolism (Chronic) Chronic otitis externa of both ears (Acute) Acute serous otitis media, right ear (Acute) Acute otitis externa of right ear (Acute) Internal nasal lesion (Acute) Pulmonary fibrosis (Acute) Acute otitis externa of left ear (Acute) Hypertension (Chronic) same meds, good BP here today Ear pain, right (Acute) Impetigo (Acute) [place] (dyspnea on exertion) (Acute) Cellulitis (Acute) Epistaxis (Acute) Nasal vestibulitis (Acute) Sensorineural hearing loss, bilateral (Acute) Impacted cerumen, bilateral (Acute) Weight loss (Acute) Elevated PSA, between 10 and less than 20 ng/ml (Acute) Chronic obstructive lung disease (Chronic) pulmonary fibrosis on chest xray ongoing tobacco use add back budesonide nebs to see if we can improve cough Diabetes mellitus (Chronic 05/05/13) check A1c and creat Gastroesophageal reflux disease (Chronic) Hyperlipidemia (Chronic 05/05/13) Kidney stone (Acute 09/14/14) recurrent x3 on left [facility] [place]; F/U Dr. Fair Male erectile disorder (Acute 08/29/13) Palpitations (Acute 11/04/12) multiple PVCs, bradycardia (2013) [place] Abraham, echo normal LVEF and stress test neg ischemia) Rheumatoid arthritis (Chronic 05/05/13) [facility] Leon Smoker (Chronic) Tubular adenoma (Acute) 11/20 COLONOSCOPY: ONE TUBULOVILLOUS ADENOMA & TWO TUBULAR ADENOMAS. 05/22/13: DR. Mateusz COPELAND:TUBULAR ADENOMAS 11/13/16: Dr Jian Crump: tublular and tubulovillous adenomas Erectile dysfunction (Chronic) Lipoma (Acute) Depressive disorder (Chronic) RCA occlusion (Acute) 05/25/19 [facility] Bradycardia (Acute) Cigarette smoker (Acute) Fatigue (Acute) Chronic knee pain (Acute) Arthritis of knee, right (Acute) Bilateral hip joint arthritis (Acute) Degenerative lumbar spinal stenosis (Acute) Adenomatous polyps (Acute) Serrated adenoma of colon (Acute ~07/2020) Mallet deformity of left ring finger (Acute 11/30/20) with avulsion fracture Anaphylaxis due to hymenoptera venom (Acute) Cellulitis of ear (Acute) Aortic atherosclerosis (Acute) Emphysema lung (Acute) Tubular adenoma of colon (Acute) COPD with acute exacerbation (Acute) 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) Cardiomyopathy (Acute) Otitis externa, left (Acute) Medical History Right shoulder pain COPD exacerbation Pneumonia Eczema Hypoxemia Sepsis COPD (chronic obstructive pulmonary disease) BPH loc w urin obs/LUTS Myocardial infarction 2020 x2 stents CVA (cerebral vascular accident) (11/21/17) ASCVD (arteriosclerotic cardiovascular disease) (05/05/13) 2 NEW STENTS 04/22 H/O IMI; angioplasty and stent; [place] , 02/11; CVA/TIA Surgical History Stented coronary artery 05/25/[place] [facility] s/p stent of old stent-KB History of incisional hernia repair History of knee surgery RESECTION ANGIOFIBROMA;RIGHT FOOT 02/04/18 KNEE REPAIR RIGHT Hernia Repair, Incisional Excision, Lipoma (05/19/16) posterior neck Colostomy (~2006) TEMP W/ REVISION Colonoscopy - MAC (11/13/16) Colonoscopy - MAC (05/16/13) Family History Mother Essential hypertension Heart disease Stroke Father Stroke Brother Heart disease Family History Diabetes Heart disease Cancer Brother No problems noted. Brother No problems noted. Sister No problems noted. Sister Alcohol abuse Social History Smoking/Tobacco Use Status: Current every day Tobacco Type: cigarettes Tobacco: How many years used: 60 Quit status: has quit before Second Hand Exposure: Yes Smoking risk assessment performed?: Yes Alcohol Intake: former Drug use: Never Substance use type: does not use Household members: family Housing: house Communication Needs: None Do you need help understanding health information?: Rarely Pets and animals: Yes Pets and animals: cat(s) Sexually active: No Current gender identity: male What is your relationship status?: How often do you talk on the phone with friends or family?: three or more times per week How often do you get together with friends or relatives?: twice per week How often do you attend buddhism or pentecostalism services?: decline to answer Do you belong to any clubs or organized social groups?: no Panel score (0-1 are the most socially isolated patients): 1 What type of physical activity do you participate in: walking Duration: < 15 minutes/day Frequency: 1-2 times per week Monika/Mandaeism: None Special monika needs: No Seatbelt use: sometimes Helmet use: No Drive intox or ride w/intox pile driver: No Do you feel safe at home: Yes Do you feel safe in your relationship?: Yes Additional Social history: Lives with son Readmission Within the Past 30 Days Yes or No: Yes Date of First Admission Date of 1st Admission: 07/30/24 Date of this Admission Date of Admission: 08/04/24 This admission was: Through ED Office Visit Since 1st Admission Have you seen your PCP in the office since discharge?: No Had an appointment Been Scheduled?: Yes Date of Scheduled Appointment: 08/09/24 I. Interview patient and/or Family Did you feel ready for discharge when you left the last time: Yes What services were received?: HH RN, PT and HELMET COVERER were ordered Did you call your physician beore you came to the ED?: No If the patient had a VNA ordered Did the patient have a VNA order?: Yes Did you call the VNA before you came?: No If the patient had home care service Call them to discuss the patient's admission: RN, PT, and HELMET COVERER were all ordered for Lawrence, only RN had made it to see him before readmission. SDOH(Care Management) Screening Will the Patient Participate in the Screening?: Unable to obtain Social Determinants of Health Comments(SDOH Details): pt unable to participate in assessment at this time due to fatigue & CPAP use, as well as no family member or friends present at this time
--- NOTE | 2024-08-05 09:44 | PGE_ITS ---
Date of Service Date of service: 08/05/24 Time of Service: 09:49 Assessment and Plan Assessment and plan (1) Severe sepsis: Status: Acute Assessment and plan: - Patient met criteria for severe sepsis with a heart regular 100, white blood cell count of 24, source of infection being right lower lobe post COVID hospital-acquired pneumonia, creatinine of 1.5 (baseline 1.0), and a lactic acid of 2.1 -Repeat lactic 1.1 -Was started on vancomycin and cefepime in the emergency department, will continue -WBC 20 on AM 08/05 -Prolonged conversation was had with patient's family including 2 of his daughters (1 of which is the DPOA), and son. They understand that given his recent frequent hospitalizations, decline in mental status, multiple comorbid conditions and current acute illness that he is severely ill. -As such, they have decided to make patient DNR/DNI -At this point they have also agreed to continue maximal medical therapy -However, if the patient were to not make improvements over the next few days, or were to start to show signs of medical decline, they would not want patient to suffer and would likely transition to [employer] status after additional discussion (2) Hospital acquired PNA: Status: Acute Assessment and plan: - Patient was recently hospitalized for COVID-19, therefore will be covered for hospital-acquired pneumonia likely in combination with post COVID-pneumonia (3) Acute hyperactive delirium due to multiple etiologies: Status: Acute Assessment and plan: - Patient was significantly agitated during the evening of 08/04/2024 - 08/05/2024 -Patient required being placed in 4 point restraints, was ultimately started on Precedex and additional as needed Ativan which has allowed patient to be comparatively more calm (4) Acute hypoxic respiratory failure: Status: Acute Assessment and plan: - Secondary to severe sepsis and hospital-acquired pneumonia as noted above -Of note, when patient was recently hospitalized for COVID-19 he had been on room air for greater than 24 hours prior to discharge -Currently requiring about 3 L nasal cannula or 28% FiO2 when on CPAP -Wean as tolerated with goal oxygen saturation between 88 and 92% (5) Pulmonary fibrosis: Status: Acute Assessment and plan: - Without acute exacerbation -Was given methylprednisolone in the emergency department, will continue to monitor patient and decide whether or not he should be started on p.o. prednisone in the morning (6) CAD (coronary artery disease): Status: Chronic Assessment and plan: - Continue home atorvastatin, aspirin -Holding home amlodipine and lisinopril as patient was noted as having low normal blood pressure in the emergency department (7) Pulmonary embolism: Status: Chronic Assessment and plan: - Continue home Xarelto (8) Diabetes mellitus: Status: Chronic Assessment and plan: - N.p.o. at this time on CPAP -Will be on sliding scale insulin, every 6 at this time on p.o. Qualifiers: Diabetes mellitus complication status: without complication Diabetes mellitus shelter insulin use: without terminal block assembler use Diabetes mellitus type: type 2 Qualified Code(s): E11.9 - Type 2 diabetes mellitus without complications Subjective Subjective Interval history since last seen: Patient consciously sedated on precedex and on HFNC. He has periods of intermittent agitation in between additional doses of Ativan. Exam Narrative Exam Narrative: Frail-appearing older gentleman laying in bed with intermittent periods of sebastian tation despite being on Precedex, HFNC in place, conscious sedation, awakens to verbal stimuli heart regular rhythm, lungs with diminished breath sounds in right base and coarse breath sounds throughout, abdomen soft, nontender, nondistended Objective Last Vital Signs Temp 97.2 F L 08/05/24 08:00 Pulse 71 08/05/24 08:01 Resp 33 H 08/05/24 08:01 BP 194/98 H 08/05/24 08:01 Pulse Ox 91 L 08/05/24 08:01 Laboratory Results - last 24 hr 08/04/24 08/04/24 08/04/24 11:18 11:18 12:45 WBC 24.19 H RBC 4.64 Hgb 14.8 Hct 44.0 MCV 95 MCH 31.9 MCHC 33.6 RDW 14.3 H Plt Count 172 MPV 11.6 H Immature Gran % 0.9 Neutrophils % 82.3 Lymphocytes % 4.8 Monocytes % 11.5 Eosinophils % 0.0 Basophils % 0.5 Nucleated RBC % 0.0 Absolute Neutrophils 19.91 H Absolute Lymphocytes 1.16 L Absolute Monocytes 2.78 H Absolute Eosinophils 0.00 Absolute Basophils 0.12 PT 14.3 H INR 1.5 H VBG pH 7.38 VBG pCO2 42 VBG pO2 44 VBG HCO3 25 VBG Total CO2 22 L VBG O2 Saturation 77 VBG Base Excess 0 VBG Lactate 2.1 H Cancelled Sodium 139 Potassium 4.1 Chloride 104 Carbon Dioxide 26.4 Anion Gap 8.6 BUN 40 H Creatinine 1.5 H Est GFR (CKD-EPI 2020) 47.95 Glucose 157 H Calcium 8.9 Total Bilirubin 0.88 AST 14 L ALT 22 Alkaline Phosphatase 77 Troponin I 12 12 Total Protein 6.3 L Albumin 2.8 L Procalcitonin 2.49 Urine Color Urine Clarity Urine pH Ur Specific [place] Urine Protein Urine Ketones Urine Blood Urine Nitrite Urine Bilirubin Urine Urobilinogen Ur Leukocyte Esterase Urine RBC Urine WBC Ur Epithelial Cells Urine Crystals Urine Bacteria Urine Casts Urine Mucus Ur Culture Indicated? Urine Glucose Random Vancomycin 08/04/24 08/04/24 08/04/24 13:27 14:50 19:05 WBC RBC Hgb Hct MCV MCH MCHC RDW Plt Count MPV Immature Gran % Neutrophils % Lymphocytes % Monocytes % Eosinophils % Basophils % Nucleated RBC % Absolute Neutrophils Absolute Lymphocytes Absolute Monocytes Absolute Eosinophils Absolute Basophils PT INR VBG pH VBG pCO2 VBG pO2 VBG HCO3 VBG Total CO2 VBG O2 Saturation VBG Base Excess VBG Lactate 2.7 H* Sodium Potassium Chloride Carbon Dioxide Anion Gap BUN Creatinine Est GFR (CKD-EPI 2020) Glucose Calcium Total Bilirubin AST ALT Alkaline Phosphatase Troponin I 13 Total Protein Albumin Procalcitonin Urine Color Yellow Urine Clarity Sl Cloudy Urine pH 5.5 Ur Specific [place] >= 1.030 H Urine Protein 30 H Urine Ketones Negative Urine Blood Large H Urine Nitrite Negative Urine Bilirubin Negative Urine Urobilinogen 0.2 Ur Leukocyte Esterase Trace H Urine RBC >50 H Urine WBC 10-20 H Ur Epithelial Cells Rare Urine Crystals Negative Urine Bacteria Rare Urine Casts Negative Urine Mucus Trace Ur Culture Indicated? Yes Urine Glucose Negative Random Vancomycin 08/05/24 08/05/24 02:00 06:00 WBC 20.12 H RBC 4.71 Hgb 14.8 Hct 43.8 MCV 93 MCH 31.4 MCHC 33.8 RDW 14.0 Plt Count 167 MPV 12.1 H Immature Gran % Neutrophils % Lymphocytes % Monocytes % Eosinophils % Basophils % Nucleated RBC % Absolute Neutrophils Absolute Lymphocytes Absolute Monocytes Absolute Eosinophils Absolute Basophils PT INR VBG pH 7.36 VBG pCO2 42 VBG pO2 84 VBG HCO3 24 VBG Total CO2 21 L VBG O2 Saturation 97 VBG Base Excess -2 VBG Lactate 1.1 Sodium 140 Potassium 3.7 Chloride 106 Carbon Dioxide 24.7 Anion Gap 9.3 BUN 31 H Creatinine 1.0 Est GFR (CKD-EPI 2020) 78.00 Glucose 144 H Calcium 8.7 Total Bilirubin AST ALT Alkaline Phosphatase Troponin I 10 Total Protein Albumin Procalcitonin Urine Color Urine Clarity Urine pH Ur Specific [place] Urine Protein Urine Ketones Urine Blood Urine Nitrite Urine Bilirubin Urine Urobilinogen Ur Leukocyte Esterase Urine RBC Urine WBC Ur Epithelial Cells Urine Crystals Urine Bacteria Urine Casts Urine Mucus Ur Culture Indicated? Urine Glucose Random Vancomycin 8.0 Time Spent with Patient Time Spent with Patient: >50 minutes Time was spent: preparing to see the patient(eg.review tests), obtaining and/or reviewing separately otained hiistory, ordering medications,tests, procedures, referring, communicating with other health career consultant, indepentently interpreting results, counseling the patient and care coordination
[2024-08-05] MEDS: CEFEPIME 2 GM in Normal Saline 100 ML IVPB ×2 (09:54→17:30)
[2024-08-05] MEDS: VANCOMYCIN/WATER (PEG) 1.5 GM/300 ML BAG IVPB (10:12)
--- NOTE | 2024-08-05 10:56 | PHACLINREV_ITS ---
Pharmacy Admission Review Admission Clinical Review Admission Pharmacy Review: Acute hyperactive delirium due to multiple etiologies (Acute) Hospital acquired PNA (Acute) Severe sepsis (Acute) COVID-19 (Acute) CORINE (acute kidney injury) (Acute) Pneumonia (Acute) Respiratory failure (Acute) Acute hypoxic respiratory failure (Acute) Pulmonary fibrosis (Acute) venom-honey bee (bee venom (honey bee)) Allergy (Severe, Verified 08/04/24 11:23) ANAPHYLAXSIS Sulfa (Sulfonamide Antibiotics) Allergy (Unknown, Verified 08/04/24 11:23) unknown leflunomide (From Arava) Adverse Reaction (Intermediate, Verified 08/04/24 11:23) DIARRHEA metformin Adverse Reaction (Intermediate, Verified 08/04/24 11:23) diarrhea Resuscitation Status DNR/DNI Height 5 ft 9 in Weight 78.925 kg Comments Comments/Follow Ups: Check on missing home meds if not added. Change insulin order to qmeals once patient is no longer NPO. Pharmacy Admission Review Renal Dosing Renal Dosing: BUN 31 mg/dL (7-18) H 08/05/24 06:00 Creatinine 1.0 mg/dL (0.70-1.30) 08/05/24 06:00 Medications needing adjustments: Reviewed (CrCl 70.16 mL/min, BUN decreased from 40 and SCr decreased from 31) List of meds needing interventions: Current medications are okay Anticoagulation Anticoagulation: Hgb 14.8 g/dL (13.5-17.5) 08/05/24 06:00 Hct 43.8 % (40.0-50.0) 08/05/24 06:00 Plt Count 167 10^3/uL (130-400) 08/05/24 06:00 INR 1.5 (0.9-1.1) H 08/04/24 11:18 Creatinine 1.0 mg/dL (0.70-1.30) 08/05/24 06:00 DVT Prophylaxis: Reviewed Medications: Rivaroxaban (20mg daily at 1700) Relevant Labs Relevant Labs: Sodium 140 mmol/L (136-145) 08/05/24 06:00 Potassium 3.7 mmol/L (3.5-5.1) 08/05/24 06:00 Chloride 106 mmol/L (98-107) 08/05/24 06:00 Electrolytes, C-Reactive P, ESR: Reviewed DM Control DM Control: Glucose 144 mg/dL (74-106) H 08/05/24 06:00 Finger Stick Blood Glucose 136 0515 Finger Stick Blood Glucose 136 0515 DM Control: Reviewed Insulin Dosing, Diabetic Medication: Has order for SS insulin q6h (patient currently NPO) Cardiac Review Cardiac Review: Troponin I 10 ng/L (<or=76) 08/05/24 02:00 Blood Pressure 194/98 0801 Blood Pressure 187/93 0701 Blood Pressure 189/89 0601 Blood Pressure 187/100 0539 Blood Pressure 201/100 0529 Blood Pressure 176/95 0502 Blood Pressure 186/97 0455 BP, HR, EF%: Intervened (HR WNL, RR 33 and Ox 91) List meds needing interventions: Patients home HTN meds currently on hold. Talked to provider today about resuming given elevated BPs this AM. Per cory mauro, continue to hold cause high BPs are while he is having periods of significant agitation QTc Review QTc: Reviewed (504 from 08/04/24) IV to PO Switch IV Medications: Reviewed (cefepime, Precedex, lorazepam and vancomycin) Home Meds Home Med List reviewed: Intervened Relevent Home Meds Not ordered & why?: amlodipine (on hold), losartan (on hold), Trulicity (on hold), Epipen (PRN) finasteride, Remicade (infusion), glargine (has order for SS insulin), sildenafil (PRN), tamsulosin and Anoro Ellipta (substitued with Stiolto per pharmacy protocol) Reached out to provider about finasteride and tamsulosin - waiting to hear back Current Meds Current Medication Order Review: Intervened Comments: Precedex infusion currently running at 1.5mcg/kg/hr Order was put in for dexamethasone 4mg daily (from home med list). Reached out to provider as this was prescription given to patient after last admission and was only a 2 day supply. Provider asked that the order be discontinued. Pharmacy Antibiotic Review Relevant Labs: Relevant Labs 08/04/24 11:18 Procalcitonin 2.49 Pharmacy Antibiotic Activity: C/S review and Renal function adjustment (increased cefepime dose) Comments: Patient is on cefepime and vancomycin, day 2, for severe sepsis/HAP. Cefepime was dosed at 2g q12h but recommended dose for sepsis/HAP is q8h and CrCl > 60 so renal dose adjustment is not needed. Reached out to provider who asked that the order be changed to q8h. Vancomycin level at 0600 this AM was 8. Changed order to 1500mg q24h with predicted AUC of 454 and trough of 14.7. Ordered another level for tomorrow morning given improved kidney function. WBC decreased from 24.19 and blood/urine cultures are pending. Comments Comments/Follow Ups: Check on missing home meds if not added. Change insulin order to qmeals once patient is no longer NPO.
[2024-08-05] MEDS: Enoxaparin 40 MG/0.4 ML SYR SC (12:00)
[2024-08-05] MEDS: Haloperidol 5 MG/ML VIAL 2 MG IV (14:10)
[2024-08-05] MEDS: hydrALAZINE 20 MG/ML VIAL 10 MG IVP ×2 (15:17→21:21)
[2024-08-05] MEDS: ACETAMINOPHEN 1,000 MG/100 ML BAG 400 MG IVPB (15:18)
[2024-08-05] MEDS: MIDAZOLAM 50 MG in Normal Saline 90 ML IV_INF (16:10)
[2024-08-05 17:33] LABS: BE (Venous) -2 mmol/L (-2-3); HCO3 (Venous) 23 mmol/L (23-28); O2 Sat (Venous) 90 %; TCO2 (Venous) 21 mmol/L (24-29); pCO2 (Venous) 43 mmHg (41-51); pH (Venous) 7.35 (7.31-7.41); pO2 (Venous) 61 mmHg
[2024-08-05 21:29] LABS: BE (Venous) -2 mmol/L (-2-3); HCO3 (Venous) 24 mmol/L (23-28); O2 Sat (Venous) 89 %; TCO2 (Venous) 22 mmol/L (24-29); pCO2 (Venous) 49 mmHg (41-51); pH (Venous) 7.31 (7.31-7.41); pO2 (Venous) 63 mmHg
[2024-08-05] MEDS: MIDAZOLAM 50 MG in Normal Saline 90 ML 15.785 MG IV_INF (22:12)
[2024-08-06] VITALS (78 sets, daily range): BP systolic 110–179; BP diastolic 52–82; PULSE 50–82; RESP 6–48; TEMP 36.9–38; O2SAT 88–480
--- NOTE | 2024-08-06 | DI.RAD_ITS ---
Exam(s) XR PORTABLE CHEST AP EXAM: XR PORTABLE CHEST AP CLINICAL HISTORY: worse respiroatory failure. TECHNIQUE: 2D digital imaging was performed. COMPARISON: CR XR CHEST 2V PA LATERAL from 02/25/[address] CHEST WO from 08/04/[address] scan 08/04/2024. FINDINGS: Single AP portable view. Mild cardiomegaly. Mediastinum not widened. The entire right lung is now affected by interstitial and confluent infiltrate. Increasing interstit ial markings-infiltrate also noted in the left lung. Suspect small right pleural effusion. IMPRESSION: Further deterioration.Increasing bilateral lung infiltrates. DATA REPOSITORY: RADIATION DOSE DELIVERED:
[2024-08-06] MEDS: dexmedeTOMidine IN 0.9 % NACL 400 MCG/100 ML BTL 29.597 MCG IV ×7 (00:41→17:51)
[2024-08-06] MEDS: CEFEPIME 2 GM in Normal Saline 100 ML IVPB ×3 (01:12→18:26)
[2024-08-06 01:31] LABS: BE (Venous) -2 mmol/L (-2-3); HCO3 (Venous) 24 mmol/L (23-28); O2 Sat (Venous) 98 %; TCO2 (Venous) 22 mmol/L (24-29); pCO2 (Venous) 48 mmHg (41-51); pH (Venous) 7.31 (7.31-7.41); pO2 (Venous) 99 mmHg
[2024-08-06] MEDS: Normal Saline 1,000 ML 125 ML IV (03:41)
[2024-08-06] MEDS: MIDAZOLAM 50 MG in Normal Saline 90 ML 14.207 MG IV_INF (04:22)
[2024-08-06 05:40] LABS: BE (Venous) -2 mmol/L (-2-3); HCO3 (Venous) 25 mmol/L (23-28); O2 Sat (Venous) 88 %; TCO2 (Venous) 23 mmol/L (24-29); pCO2 (Venous) 53 mmHg (41-51); pH (Venous) 7.28 (7.31-7.41); pO2 (Venous) 59 mmHg
[2024-08-06] MEDS: Normal Saline Flush 10 ML SYR IVP ×5 (05:45→23:35)
[2024-08-06 05:52] LABS: HCT 43.7 % (40.0-50.0); MCH 31.3 pg (27.0-33.0); MPV 11.9 fL (8.0-11.0); Platelet Count 163 10^3/uL (130-400); RBC 4.47 10^6/uL (4.36-5.78); RDW 14.2 % (11.8-14.1); RDW-SD 51.4 fL; WBC 15.29 10^3/uL (4.4-10.8)
[2024-08-06 06:01] LABS: ALT 17 U/L (16-63); AST 18 U/L (15-37); Alkaline Phosphatase 65 U/L (46-116); Anion Gap 6.1 mmol/L (3-11); BUN 27 mg/dL (7-18); Bilirubin, Total 0.52 mg/dL (0.2-1.0); CO2 26.9 mmol/L (21.0-32.0); CREATININE 0.9 mg/dL (0.70-1.30); Calcium 8.2 mg/dL (8.5-10.1); Chloride 111 mmol/L (98-107); Estimated GFR 88.51 (mL/min/1.73m2); Glucose 112 mg/dL (74-106); MCV 98 fL (80-95); Potassium 4.4 mmol/L (3.5-5.1); Sodium 144 mmol/L (136-145); Total Protein 5.6 g/dL (6.4-8.2)
[2024-08-06 06:02] LABS: Vancomycin, Random 5.5 ug/mL
[2024-08-06] MEDS: MORPHine 2 MG/ML SYR 1 MG IVP (06:37)
[2024-08-06] MEDS: Enoxaparin 40 MG/0.4 ML SYR SC ×2 (08:04→11:13)
[2024-08-06] MEDS: VANCOMYCIN/WATER (PEG) 1.25 GM/250 ML BAG IV ×2 (08:04→18:43)
--- NOTE | 2024-08-06 08:33 | W.PM.PROGNOT ---
Date of Service Date of service: 08/16/24 Time of Service: 08:36 Assessment and Plan Assessment and plan (1) Acute respiratory failure with hypoxia and hypercapnia: Status: Acute Assessment and plan: Initial hypoxia related to pneumonia after improving from COVID, now likely re-activationg of COPD/ILD Hypercapnea with associated respiratory acidosis has developed over the last 24 hours. Clinically he is breathing with rapid shallow breaths so I think the percentage of space vs. total ventilation has increased and caused this picture. I think his COPD and possibly ILD has become active, starting on IV steroids. Unfortunately he has not tolerated CPAP due to agitation, we can't use this with current sedation. With COVID we also aren't able to use nebulizers, he is unable to use his inhalers. He has a h/o PEs, CT on admission was non-contrast, high risk for COVID, has been off oral DOAC. Change LMWH to therapeutic dosing. He does not appear to be in CHF, cutting back fluids to lower rate maintenance. Get repeat CXR to help assess this morning (2) Severe sepsis: Status: Acute Assessment and plan: - Patient met criteria for severe sepsis with a heart regular 100, white blood cell count of 24, source of infection being right lower lobe post COVID hospital-acquired pneumonia, creatinine of 1.5 (baseline 1.0), and a lactic acid of 2.1 - This parameters have all improved. -Was started on vancomycin and cefepime in the emergency department for hospital acquired pneumonia and sepsis, check MSRA swab and consider stopping vanco if negative. (3) Hospital acquired PNA: Status: Acute Assessment and plan: - Patient was recently hospitalized for COVID-19, therefore will be covered for hospital-acquired pneumonia likely in combination with post COVID-pneumonia, see above re: Abx (4) Acute hyperactive delirium due to multiple etiologies: Status: Acute Assessment and plan: - Patient was significantly agitated 08/04/2024 - 08/05/2024 - Patient required being placed in 4 point restraints, was ultimately started on Precedex and additional as needed Ativan, then midazolam drip. - I'd like to not continue benzodiazapine drip especailly given age. Try weaning, transition to ketamine along with precedex (5) Acute hypoxic respiratory failure: Status: Acute Assessment and plan: - Secondary to severe sepsis and hospital-acquired pneumonia as noted above -Of note, when patient was recently hospitalized for COVID-19 he had been on room air for greater than 24 hours prior to discharge -Currently requiring about 3 L nasal cannula or 28% FiO2 when on CPAP -Wean as tolerated with goal oxygen saturation between 88 and 92% (6) Pulmonary fibrosis: Status: Acute Assessment and plan: - He may be getting acute exacerbation contributing to above, got steroids in ED but not on floor. Resuming methylprednilone. (7) CAD (coronary artery disease): Status: Chronic Assessment and plan: - home cardiac meds on hold since NPO, resume when able. (8) Pulmonary embolism: Status: Chronic Assessment and plan: - Holding Xarelto as NPO, on therapeutic enoxaparin. (9) Diabetes mellitus: Status: Chronic Assessment and plan: - N.p.o. at this time. -Will be on sliding scale insulin. 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 They understand that given his recent frequent hospitalizations, decline in mental status, multiple comorbid conditions and current acute illness that he is severely ill. 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 Plan to meet with family today. Subjective Subjective Interval history since last seen: Events: Midalozam drip started 08/05 afternoon in addition to dexmedetomdate due to agitation, soft restraints active for safety He continues NPO. Has been calm this morning per nurses, but did not tolerate CPAP yesterday, pulling lines and trying to get out of bed, flailing and cussing. He has not been able to take his oral meds. Exam Narrative Exam Narrative: Frail-appearing older gentleman laying in bed, not responsive to voice, minimally responsive to touch, HFNC in place. Head NC/AT, neck supple without increased JVD. Heart regular rhythm, no murmur. Lungs with rapid shallow breathing, diminished breath sounds bases and coarse ronchorous breath sounds throughout, more on expiration. abdomen soft, nondistended. Extremities warm, good cap refill, no edema. Objective Last Vital Signs Temp 37.2 C 08/06/24 08:05 Pulse 66 08/06/24 07:01 Resp 38 H 08/06/24 07:01 BP 140/62 08/06/24 07:01 Pulse Ox 90 L 08/06/24 07:01 Laboratory Results - last 24 hr 08/05/24 08/05/24 08/06/24 17:24 21:22 01:23 WBC RBC Hgb Hct MCV MCH MCHC RDW Plt Count MPV VBG pH 7.35 7.31 7.31 VBG pCO2 43 49 48 VBG pO2 61 63 99 VBG HCO3 23 24 24 VBG Total CO2 21 L 22 L 22 L VBG O2 Saturation 90 89 98 VBG Base Excess -2 -2 -2 Sodium Potassium Chloride Carbon Dioxide Anion Gap BUN Creatinine Est GFR (CKD-EPI 2020) Glucose Calcium Total Bilirubin AST ALT Alkaline Phosphatase Total Protein Albumin Random Vancomycin 08/06/24 05:25 WBC 15.29 H RBC 4.47 Hgb 14.0 Hct 43.7 MCV 98 H D MCH 31.3 MCHC 32.0 RDW 14.2 H Plt Count 163 MPV 11.9 H VBG pH 7.28 L VBG pCO2 53 H VBG pO2 59 VBG HCO3 25 VBG Total CO2 23 L VBG O2 Saturation 88 VBG Base Excess -2 Sodium 144 Potassium 4.4 Chloride 111 H Carbon Dioxide 26.9 Anion Gap 6.1 BUN 27 H Creatinine 0.9 Est GFR (CKD-EPI 2020) 88.51 Glucose 112 H Calcium 8.2 L Total Bilirubin 0.52 AST 18 ALT 17 Alkaline Phosphatase 65 Total Protein 5.6 L Albumin 2.0 L Random Vancomycin 5.5 Time Spent with Patient Time Spent with Patient: >50 minutes Time was spent: preparing to see the patient(eg.review tests), obtaining and/or reviewing separately otained hiistory, ordering medications,tests, procedures, referring, communicating with other health customer care professional, indepentently interpreting results, counseling the patient and care coordination
[2024-08-06] MEDS: Pantoprazole 40 MG VIAL IVP (08:44)
[2024-08-06] MEDS: methylPREDNISolone SUCC 125 MG VIAL 80 MG IVP ×2 (08:44→17:13)
[2024-08-06 09:25] LABS: BE (Venous) -3 mmol/L (-2-3); HCO3 (Venous) 25 mmol/L (23-28); O2 Sat (Venous) 91 %; TCO2 (Venous) 23 mmol/L (24-29); pCO2 (Venous) 57 mmHg (41-51); pH (Venous) 7.24 (7.31-7.41); pO2 (Venous) 67 mmHg
[2024-08-06] MEDS: POTASSIUM CHLORIDE/D5-0.45NACL 1,000 ML 50 MEQ IV (10:27)
--- NOTE | 2024-08-06 10:54 | DI.VRAD_ITS ---
PROCEDURE INFORMATION: Exam: XR Chest Exam date and time: 08/06/2024 10:39 AM Age: 78 years old Clinical indication: Other: Worse respiroatory failure TECHNIQUE: Imaging protocol: Radiologic exam of the chest. Views: 1 view. COMPARISON: CT CHEST WO 08/04/2024 12:39 PM FINDINGS: Lungs: Airspace opacity right lower lobe, likely pneumonia. Diffuse interstitial prominence. Lung bases excluded from examination. Pleural spaces: Unremarkable. No pleural effusion. No pneumothorax. Heart/Mediastinum: Unremarkable. No cardiomegaly. Bones/joints: Unremarkable. IMPRESSION: 1. Airspace opacity right lower lobe, likely pneumonia. 2. Diffuse interstitial prominence. Dictated and Authenticated by: Kimberly Porras MD. Ordering:KHADRA Egan MD
[2024-08-06] MEDS: MIDAZOLAM 50 MG in Normal Saline 90 ML 15.785 MG IV_INF (11:09)
[2024-08-06] MEDS: ACETAMINOPHEN 1,000 MG/100 ML BAG 400 MG IVPB (11:21)
[2024-08-06 12:21] LABS: MRSA PCR Positive (Negative)
--- NOTE | 2024-08-06 13:15 | DI.RAD_ITS ---
Exam(s) XR PORTABLE CHEST AP EXAM: XR PORTABLE CHEST AP CLINICAL HISTORY: Post-intubation. TECHNIQUE: 2D digital imaging was performed. COMPARISON: Prior chest x-ray earlier same date and prior CT scan. FINDINGS: Single AP portable view. Patient is now intubated. Distal tip of the endotracheal tube is at the infraclavicular level. Ther e is also an NG tube in place. However, its distal tip is above the GE junction and this should be a dvanced into the stomach. Mild cardiomegaly again noted. The mediastinum is not widened. Large right infiltrate evident and there also appears to be some infiltrate now developing in the mid -left lung. Blunting costophrenic angles noted indicating small pleural effusions, right larger than left. IMPRESSION: Increasing infiltrates superimposed upon COPD. Slight further progression. Also small bilateral ple ural effusions. Endotracheal tube distal tip is above the wen at the infraclavicular level. However, the NG tube requires repositioning into the stomach. It is presently just above the GE junction. DATA REPOSITORY: RADIATION DOSE DELIVERED:
[2024-08-06 13:31] LABS: BE (Venous) -3 mmol/L (-2-3); HCO3 (Venous) 23 mmol/L (23-28); O2 Sat (Venous) 93 %; TCO2 (Venous) 21 mmol/L (24-29); pCO2 (Venous) 48 mmHg (41-51); pH (Venous) 7.29 (7.31-7.41); pO2 (Venous) 68 mmHg
--- NOTE | 2024-08-06 13:39 | RESPIRATORY ---
Patient continues to maintain Sp02 between 88-92% on Airvo 62% and 50L. NIV machine was not in use and pulled from Patient room yesterday 08/05/24 due to the implementation of wrist restraints which is a contraindication for this therapy.
[2024-08-06] MEDS: Propofol 200 MG/20 ML VIAL (14:12)
[2024-08-06] MEDS: PROPOFOL 1,000 MG/100 ML BTL 18.942 MG IVPB (14:19)
--- NOTE | 2024-08-06 14:35 | W.ANESAIR ---
Airway Management Note Procedure Date and Time DO NOT use this note for patients in the OR, Use Intraop Record Instead Date Performed: 08/06/24 Procedure Time: 14:10 Procedure Location Procedure Location: Intensive Care Unit Requesting Provider: Jignesh Oneill Number of Previous Intubation attempts by other providers: 0 Procedure Type Procedure Type: Urgent Pre-Induction Setup Preinduction Setup: Standard monitors applied, BVM at bedside, Suction ready, Airway equipment ready, Medications ready, IV/IO access patent & flowing and Post induction medications ready Induction Induction Time: 14:13 Induction setup: Pt. evaluated prior to induction, Bag Valve Mask Ventilation, Ear to Sternal Notch and Other (Preoxygenated with high flow NC, exp 95%) Induction Medications (Indicate Dose Given): Lidocaine 2% IV Dose:: 80 mg, Propofol IV Dose:: 150 mg and Rocuronium IV Dose:: 70 mg Mask Ventilation: Easy Airway Device Airway Type: Intubation Laryngoscopy: Atraumatic Laryngoscopy and Edentulous Airway Grade: 2a Airway Blades: Glidescope 3 Endotracheal Tube: Oral, Cuffed, Stylet Used and 7.5mm ETT Depth Where Secured (cm): 22 Placement Confirmation: Cuff inflated with minimally occlusive pressure, Secured with commercial device, Bilateral breath sounds, ETCO2 waveform present and Depth to Lips Number of Attempts (See previous attempts in note section): 1 Post Induction Management Post Induction Medications (Indicate Dose Given): Propofol (mcg/kg/min) (initiated, titration to be managed by Hospitalist) Dose:: 40 mcg/kg/min Gastric Tube Gastric Tube: Placed by Anesthesia Gastric Tube Placement: Oral, Gastric Contents Suctioned (very minimal returm) and Placed on low continuous suction Tube Size (Fr): 16 Depth Secured (cm): 50 Procedure Complications Procedure Complications: None Procedure Outcome Procedure Outcome: Successful Procedure Comment: Request for intubation by Dr. Jesenia Oneill for respiratory failure, COPD/COVID. Tachypneic in the 40's, BP elevated. Consent amd change in code status obtained by Dr. Oneill when he spoke with the family prior to my arrival. Time out performed. Patient tolerated well. Lungs very rhonchorous on auscultation. RT at bedside, initiated vent and in-line suctioned the ETT with light brown return. Proceduralist Performed By: Aniyah Mcrae
--- NOTE | 2024-08-06 15:07 | DI.VRAD_ITS ---
PROCEDURE INFORMATION: Exam: XR Chest Exam date and time: 08/06/2024 2:56 PM Age: 78 years old Clinical indication: Other: Post-intubation TECHNIQUE: Imaging protocol: Radiologic exam of the chest. Views: 1 view. COMPARISON: CR XR PORTABLE CHEST AP 08/06/2024 10:39 AM FINDINGS: Tubes, catheters and devices: Endotracheal tube 8.4 cm above the wen. Nasogastric tube terminates in the distal esophagus and should be advanced. Lungs: Continued airspace opacity in the right lower lobe. Diffuse interstitial prominence. Pleural spaces: Small pleural effusions bilaterally, right larger than left. Heart/Mediastinum: Unremarkable. No cardiomegaly. Bones/joints: Unremarkable. IMPRESSION: 1. Nasogastric tube terminates in the distal esophagus and should be advanced. 2. Continued airspace opacity in the right lower lobe. 3. Diffuse interstitial prominence. 4. Small pleural effusions bilaterally, right larger than left. Dictated and Authenticated by: Kimberly Porras MD. Ordering:KHADRA Egan MD
[2024-08-06 15:26] LABS: BE (Venous) -4 mmol/L (-2-3); HCO3 (Venous) 24 mmol/L (23-28); O2 Sat (Venous) 92 %; TCO2 (Venous) 22 mmol/L (24-29); pCO2 (Venous) 59 mmHg (41-51); pH (Venous) 7.21 (7.31-7.41); pO2 (Venous) 73 mmHg
--- NOTE | 2024-08-06 15:41 | PDOC.CMPRO ---
Date of service: 08/06/24 Time of Service: 15:41 Care Management Progress Note Progress Note Text Progress Note Text: Lawrence's daughter, Kandis, and his son, Scot, asked to speak with CM today. They were wondering if there is anything that they should be doing. They are trying to remain hopeful, as their Dad's infection seems to be improving, but his respiratory status has worsened, requiring intubation. CM encouraged Kandis to fill out the Long-Term Medicaid application, and provided her with the application. Kandis filled it out previously for her mother in law, and feels she should be able to do it for her Dad, as he has little to no assets. We discussed that their Dad, should he recover, will likely need some rehabilitation to recover his strength. Discharge Potential Discharge Needs: PT Evaluation and PCP F/U Appt Anticipated Barriers to Discharge: Medical Status Patient/Family Education Needs: Review discharge instructions, discuss Ask Me Three Plan: Scot's discharge plan is still unclear as he is acutely ill. Anticipate that he will need SNF once medically cleared for discharge. CM will continue to follow and to update the plan and family as needed. SDOH(Care Management) Screening Will the Patient Participate in the Screening?: Unable to obtain Social Determinants of Health Comments(SDOH Details): pt unable to participate in assessment at this time due to fatigue & CPAP use, as well as no family member or friends present at this time
[2024-08-06 15:51] LABS: Vancomycin, Random 11.2 ug/mL
[2024-08-06] MEDS: Albuterol/Ipratropium 3 ML UPD VIAL UPD (15:59)
[2024-08-06 16:36] LABS: BE (Venous) -4 mmol/L (-2-3); HCO3 (Venous) 25 mmol/L (23-28); O2 Sat (Venous) 93 %; TCO2 (Venous) 23 mmol/L (24-29); pO2 (Venous) 77 mmHg
[2024-08-06 16:38] LABS: pCO2 (Venous) 67 mmHg (41-51); pH (Venous) 7.17 (7.31-7.41)
[2024-08-06] MEDS: Insulin Aspart 300 UNITS/3 ML PEN SC ×2 (17:25→23:33)
[2024-08-06 17:58] LABS: BE -4 mmol/L (-2-3); HCO3 24 mmol/L (22-26); pO2 87 mmHg (80-105); sO2 95 % (95-98); tCO2 23 mmol/L (23-27)
[2024-08-06 18:00] LABS: FIO2 75 %; Site Left Radial
[2024-08-06 18:01] LABS: pCO2 66 mmHg (35-45); pH 7.18 (7.35-7.45)
--- NOTE | 2024-08-06 18:44 | DI.RAD_ITS ---
Exam(s) XR PORTABLE CHEST AP POST LINE EXAM: XR PORTABLE CHEST AP POST LINE CLINICAL HISTORY: Confirm NG tube placement - advanced to 60cm TECHNIQUE: 2D digital imaging was performed of the chest. Two images were obtained. AP views were obtained. COMPARISON: CR,XR XR PORTABLE CHEST AP from 08/06/2024 FINDINGS: The tip of the nasogastric tube is seen in the distal esophagus. It should be advanced into the stom ach. The tip of the endotracheal tube is seen 7 cm above the wen. MEDIASTINUM: Normal. HEART: Normal. PULMONARY VASCULATURE: Normal. LUNGS: There again seen pulmonary infiltrates bilaterally, right greater than left. There has been n o significant change compared to the examination from earlier in the day. PLEURAL SPACE: There is blunting of the right costophrenic angle suggesting a small right pleural eff usion. No pneumothorax is seen. BONE:Within normal limits for the patient's age. OTHER FINDINGS:Normal. IMPRESSION: 1. The tip of the nasogastric tube is seen in the distal esophagus and should be advanced into the st omach. 2. Stable pulmonary infiltrates. DATA REPOSITORY: RADIATION DOSE DELIVERED:
[2024-08-06] MEDS: PROPOFOL 1,000 MG/100 ML BTL 16.574 MG IVPB (19:38)
--- NOTE | 2024-08-06 20:01 | DI.VRAD_ITS ---
PROCEDURE INFORMATION: Exam: XR Chest Exam date and time: 08/06/2024 7:07 PM Age: 78 years old Clinical indication: Other: Confirm ng tube placement - advanced to 60cm TECHNIQUE: Imaging protocol: Radiologic exam of the chest. Views: 1 view. COMPARISON: XR PORTABLE CHEST AP 08/06/2024 2:56 PM FINDINGS: Tubes, catheters and devices: Endotracheal tube is identified with its tip 8.6 cm above the wen. Lungs: Changes of pulmonary vascular congestion and pulmonary edema are identified with superimposed pneumonia not excluded. Pleural spaces: Bilateral pleural effusions are noted. Heart/Mediastinum: Unremarkable. No cardiomegaly. Bones/joints: Unremarkable. IMPRESSION: 1. Endotracheal tube as detailed above. 2. Bilateral pulmonary infiltrates and effusions likely on the basis of congestive heart failure/pulmonary edema although superimposed pneumonia cannot be excluded. Dictated and Authenticated by: Jonathan Mullins MD. Ordering:KHADRA Egan MD
[2024-08-06 21:22] LABS: BE (Venous) -4 mmol/L (-2-3); HCO3 (Venous) 24 mmol/L (23-28); O2 Sat (Venous) 78 %; TCO2 (Venous) 23 mmol/L (24-29); pH (Venous) 7.21 (7.31-7.41); pO2 (Venous) 46 mmHg
[2024-08-06 21:25] LABS: pCO2 (Venous) 61 mmHg (41-51)
[2024-08-06] MEDS: dexmedeTOMidine IN 0.9 % NACL 400 MCG/100 ML BTL 15.785 MCG IV (21:49)
[2024-08-06] MEDS: Atorvastatin 40 MG TAB 80 MG PO (22:18)
[2024-08-06] MEDS: Gabapentin 300 MG CAP PO (22:18)
[2024-08-06] MEDS: Enoxaparin 80 MG/0.8 ML SYR SC (22:18)
[2024-08-06 23:17] LABS: BE (Venous) -4 mmol/L (-2-3); HCO3 (Venous) 24 mmol/L (23-28); O2 Sat (Venous) 83 %; TCO2 (Venous) 22 mmol/L (24-29); pCO2 (Venous) 58 mmHg (41-51); pH (Venous) 7.22 (7.31-7.41); pO2 (Venous) 51 mmHg
[2024-08-07] VITALS (10 sets, daily range): BP systolic 112–145; BP diastolic 56–81; PULSE 49–70; RESP 2–33; O2SAT 39–94
[2024-08-07] MEDS: Albuterol/Ipratropium 3 ML UPD VIAL UPD (00:22)
[2024-08-07] MEDS: methylPREDNISolone SUCC 125 MG VIAL 80 MG IVP ×2 (01:07→08:37)
[2024-08-07] MEDS: Normal Saline Flush 10 ML SYR IVP ×10 (01:07→21:15)
[2024-08-07 01:21] LABS: BE (Venous) -3 mmol/L (-2-3); HCO3 (Venous) 25 mmol/L (23-28); O2 Sat (Venous) 80 %; TCO2 (Venous) 23 mmol/L (24-29); pCO2 (Venous) 55 mmHg (41-51); pH (Venous) 7.26 (7.31-7.41); pO2 (Venous) 46 mmHg
[2024-08-07] MEDS: PROPOFOL 1,000 MG/100 ML BTL 16.574 MG IVPB ×2 (02:06→08:50)
[2024-08-07] MEDS: CEFEPIME 2 GM in Normal Saline 100 ML IVPB ×2 (02:09→10:51)
[2024-08-07 03:21] LABS: BE (Venous) -3 mmol/L (-2-3); HCO3 (Venous) 24 mmol/L (23-28); O2 Sat (Venous) 81 %; TCO2 (Venous) 22 mmol/L (24-29); pCO2 (Venous) 53 mmHg (41-51); pH (Venous) 7.26 (7.31-7.41); pO2 (Venous) 47 mmHg
[2024-08-07 05:24] LABS: BE (Venous) -3 mmol/L (-2-3); HCO3 (Venous) 24 mmol/L (23-28); O2 Sat (Venous) 84 %; TCO2 (Venous) 22 mmol/L (24-29); pCO2 (Venous) 51 mmHg (41-51); pH (Venous) 7.28 (7.31-7.41); pO2 (Venous) 50 mmHg
[2024-08-07 05:27] LABS: Abs Immature Grans 0.19 10^3/uL (0.0-0.06); Absolute Eosinophil Count 0.18 10^3/uL (0.0-0.7); Absolute Lymphocyte Count 0.64 10^3/uL (1.2-3.4); Absolute Monocyte Count 1.05 10^3/uL (0.1-0.8); Absolute Neutrophil Count 12.04 10^3/uL (1.2-6.7); Basophils % 0.6 %; Eosinophils % 1.3 %; HCT 41.5 % (40.0-50.0); HGB 13.2 g/dL (13.5-17.5); Immature Grans % 1.3 %; Lymphocytes % 4.5 %; MCHC 31.8 % (32.0-36.0); MCV 101 fL (80-95); MPV 11.4 fL (8.0-11.0); Monocytes % 7.4 %; Neutrophils % 84.9 %; Platelet Count 171 10^3/uL (130-400); RBC 4.13 10^6/uL (4.36-5.78); RDW 14.5 % (11.8-14.1); RDW-SD 53.7 fL; WBC 14.18 10^3/uL (4.4-10.8)
[2024-08-07 05:29] LABS: Absolute Basophil Count 0.09 10^3/uL (0.0-0.2)
[2024-08-07 05:38] LABS: Anion Gap 5.4 mmol/L (3-11); BUN 44 mg/dL (7-18); CO2 25.6 mmol/L (21.0-32.0); CREATININE 1.2 mg/dL (0.70-1.30); Calcium 8.7 mg/dL (8.5-10.1); Chloride 116 mmol/L (98-107); Estimated GFR 62.67 (mL/min/1.73m2); Glucose 210 mg/dL (74-106); Magnesium 2.6 mg/dL (1.8-2.4); Potassium 4.8 mmol/L (3.5-5.1); Sodium 147 mmol/L (136-145)
[2024-08-07] MEDS: dexmedeTOMidine IN 0.9 % NACL 400 MCG/100 ML BTL 9.866 MCG IV (05:57)
[2024-08-07] MEDS: VANCOMYCIN/WATER (PEG) 1.25 GM/250 ML BAG IV (06:01)
[2024-08-07] MEDS: POTASSIUM CHLORIDE/D5-0.45NACL 1,000 ML 50 MEQ IV (06:26)
[2024-08-07] MEDS: Insulin Aspart 300 UNITS/3 ML PEN SC (06:33)
[2024-08-07 07:18] LABS: BE (Venous) -3 mmol/L (-2-3); HCO3 (Venous) 24 mmol/L (23-28); O2 Sat (Venous) 72 %; TCO2 (Venous) 22 mmol/L (24-29); pCO2 (Venous) 53 mmHg (41-51); pH (Venous) 7.27 (7.31-7.41); pO2 (Venous) 40 mmHg
--- NOTE | 2024-08-07 08:18 | W.PM.PROGNOT ---
Date of Service Date of service: 08/07/24 Time of Service: 08:18 Assessment and Plan Assessment and plan (1) Acute respiratory failure with hypoxia and hypercapnia: Status: Acute Assessment and plan: Initial hypoxia related to pneumonia after improving from COVID, now likely re-activationg of COPD/ILD along with acute pneumonia Hypercapnea with associated respiratory acidosis has developed despite high flow system, associated with rapid shallow breathing. BiPAP was not an option with sedation, after dicussing with family he was intubated 08/06 afternoon. He has required high respiratory rates/minute ventilation to improve his pCO2/pH, still has not normalized. I think this is a reflection of the severity of his baseline respiratory disease. He has a h/o PEs, CT on admission was non-contrast, high risk for COVID, now on LMWH petty therapeutic dosing. He does not appear to be in CHF, cut back fluids 08/06, now hypernatremic and also puffy, will try to give nutrition/water via NGT, nutrition consult. Continue steroids, nebs, antibiotics Continue to titrate respiratory support (2) Severe sepsis: Status: Acute Assessment and plan: - Patient met criteria for severe sepsis with a heart regular 100, white blood cell count of 24, source of infection being right lower lobe post COVID hospital-acquired pneumonia, creatinine of 1.5 (baseline 1.0), and a lactic acid of 2.1 - These parameters all improved though respiratory status worsened. -Was started on vancomycin and cefepime in the emergency department for hospital acquired pneumonia and sepsis, +MSRA swab so continue both (3) Hospital acquired PNA: Status: Acute Assessment and plan: - Patient was recently hospitalized for COVID-19, therefore will be covered for hospital-acquired pneumonia likely in combination with post COVID-pneumonia, see above re: Abx - I don't think retreating with remdesavir makes sense. (4) Acute hyperactive delirium due to multiple etiologies: Status: Acute Assessment and plan: - Patient was significantly agitated 08/04/2024 - 08/05/2024 - Patient required being placed in 4 point restraints, was ultimately started on Precedex and additional as needed Ativan, then midazolam drip. - Intubated 08/06, off midazolam, propofol drip. Okay to give a breatk from precedex, resume when we attempt extubation. (5) Pulmonary fibrosis: Status: Acute Assessment and plan: - He may be getting acute exacerbation contributing to above, got steroids in ED, resumed methylprednilone 08/06 (6) CAD (coronary artery disease): Status: Chronic Assessment and plan: - home cardiac meds on hold since NPO, resumed via NGT (7) Pulmonary embolism: Status: Chronic Assessment and plan: - Held Xarelto while NPO, now on therapeutic enoxaparin. (8) Diabetes mellitus: Status: Chronic Assessment and plan: - N.p.o. at this time. -sliding scale insulin. Qualifiers: Diabetes mellitus complication status: without complication Diabetes mellitus terminal system operator insulin use: without skilled nursing use Diabetes mellitus type: type 2 Qualified Code(s): E11.9 - Type 2 diabetes mellitus without complications (9) Goals of care, counseling/discussion: Status: Acute Assessment and plan: -Prolonged conversation was had with patient's family including 2 of his daughters (1 of which is the DPOA), and son on admission. They understand that given his recent frequent hospitalizations, decline in mental status, multiple comorbid conditions and current acute illness that he is severely ill, they decided at that point to make patient DNR/DNI on admission -after seeing some improvement in infection, they changed their mind, decided to intubate, understanding there is high likelihood he will not be able to come off, plan was reassess in 2 days -They continue to want maximal medical therapy -Response to intubation not what we hoped, still difficult to blow off CO2. Will re-discuss with family. I do think transition to PROFILE SAW OPERATOR reasonable, but I want the family to feel good about this decision. -Cased discussed with Dr. Harper who will be available later in the afternoon to consult.. Subjective Subjective Interval history since last seen: 24 hr: After meeting with family, reversed DNI, patient intubated 08/06 afternoon midline placed for access methylprednisolone resumed MRSA+ nares Midazolam replaced with propopofol for sedation, precedex titrated down overnight. Patient is intubated and sedated Exam Narrative Exam Narrative: Frail-appearing older gentleman laying in bed, not responsive to voice/ touch. intubated. Neck supple without clear increased JVD. Heart regular rhythm, no murmur. Lungs with slightly diminished breath sounds bases more on right (dependant this morning), no wheeze, less ronchorous today. abdomen soft, nondistended. Extremities warm, good cap refill, Trace to 1+ edema in LE, extends to abdomen. Objective Last Vital Signs Temp 37.7 C H 08/06/24 23:31 Pulse 56 L 08/07/24 00:31 Resp 30 H 08/07/24 05:41 BP 134/66 08/07/24 05:41 Pulse Ox 93 08/07/24 05:41 Laboratory Results - last 24 hr 08/06/24 08/06/24 08/06/24 09:17 10:36 13:24 WBC RBC Hgb Hct MCV MCH MCHC RDW Plt Count MPV Immature Gran % Neutrophils % Lymphocytes % Monocytes % Eosinophils % Basophils % Nucleated RBC % Absolute Neutrophils Absolute Lymphocytes Absolute Monocytes Absolute Eosinophils Absolute Basophils ABG Sample Site ABG pH ABG pCO2 ABG pO2 ABG HCO3 ABG Total CO2 ABG O2 Saturation ABG Base Excess VBG pH 7.24 L 7.29 L VBG pCO2 57 H 48 VBG pO2 67 68 VBG HCO3 25 23 VBG Total CO2 23 L 21 L VBG O2 Saturation 91 93 VBG Base Excess -3 L -3 L VBG Lactate FiO2 Sodium Potassium Chloride Carbon Dioxide Anion Gap BUN Creatinine Est GFR (CKD-EPI 2020) Glucose Calcium Magnesium Random Vancomycin MRSA (TEM-PCR) Positive A 08/06/24 08/06/24 08/06/24 15:19 16:27 17:53 WBC RBC Hgb Hct MCV MCH MCHC RDW Plt Count MPV Immature Gran % Neutrophils % Lymphocytes % Monocytes % Eosinophils % Basophils % Nucleated RBC % Absolute Neutrophils Absolute Lymphocytes Absolute Monocytes Absolute Eosinophils Absolute Basophils ABG Sample Site Left Radial ABG pH 7.18 L* ABG pCO2 66 H* ABG pO2 87 ABG HCO3 24 ABG Total CO2 23 ABG O2 Saturation 95 ABG Base Excess -4 L VBG pH 7.21 L 7.17 L* VBG pCO2 59 H 67 H* VBG pO2 73 77 VBG HCO3 24 25 VBG Total CO2 22 L 23 L VBG O2 Saturation 92 93 VBG Base Excess -4 L -4 L VBG Lactate 1.0 FiO2 75 Sodium Potassium Chloride Carbon Dioxide Anion Gap BUN Creatinine Est GFR (CKD-EPI 2020) Glucose Calcium Magnesium Random Vancomycin 11.2 MRSA (TEM-PCR) 08/06/24 08/06/24 08/07/24 21:14 23:15 01:15 WBC RBC Hgb Hct MCV MCH MCHC RDW Plt Count MPV Immature Gran % Neutrophils % Lymphocytes % Monocytes % Eosinophils % Basophils % Nucleated RBC % Absolute Neutrophils Absolute Lymphocytes Absolute Monocytes Absolute Eosinophils Absolute Basophils ABG Sample Site ABG pH ABG pCO2 ABG pO2 ABG HCO3 ABG Total CO2 ABG O2 Saturation ABG Base Excess VBG pH 7.21 L 7.22 L 7.26 L VBG pCO2 61 H* 58 H 55 H VBG pO2 46 51 46 VBG HCO3 24 24 25 VBG Total CO2 23 L 22 L 23 L VBG O2 Saturation 78 83 80 VBG Base Excess -4 L -4 L -3 L VBG Lactate FiO2 Sodium Potassium Chloride Carbon Dioxide Anion Gap BUN Creatinine Est GFR (CKD-EPI 2020) Glucose Calcium Magnesium Random Vancomycin MRSA (TEM-PCR) 08/07/24 08/07/24 08/07/24 03:15 05:00 05:11 WBC 14.18 H RBC 4.13 L Hgb 13.2 L Hct 41.5 MCV 101 H MCH 32.0 MCHC 31.8 L RDW 14.5 H Plt Count 171 MPV 11.4 H Immature Gran % 1.3 Neutrophils % 84.9 Lymphocytes % 4.5 Monocytes % 7.4 Eosinophils % 1.3 Basophils % 0.6 Nucleated RBC % 0.0 Absolute Neutrophils 12.04 H Absolute Lymphocytes 0.64 L Absolute Monocytes 1.05 H Absolute Eosinophils 0.18 Absolute Basophils 0.09 ABG Sample Site ABG pH ABG pCO2 ABG pO2 ABG HCO3 ABG Total CO2 ABG O2 Saturation ABG Base Excess VBG pH 7.26 L 7.28 L VBG pCO2 53 H 51 VBG pO2 47 50 VBG HCO3 24 24 VBG Total CO2 22 L 22 L VBG O2 Saturation 81 84 VBG Base Excess -3 L -3 L VBG Lactate FiO2 Sodium 147 H Potassium 4.8 Chloride 116 H Carbon Dioxide 25.6 Anion Gap 5.4 BUN 44 H Creatinine 1.2 Est GFR (CKD-EPI 2020) 62.67 Glucose 210 H Calcium 8.7 Magnesium 2.6 H Random Vancomycin MRSA (TEM-PCR) 08/07/24 07:00 WBC RBC Hgb Hct MCV MCH MCHC RDW Plt Count MPV Immature Gran % Neutrophils % Lymphocytes % Monocytes % Eosinophils % Basophils % Nucleated RBC % Absolute Neutrophils Absolute Lymphocytes Absolute Monocytes Absolute Eosinophils Absolute Basophils ABG Sample Site ABG pH ABG pCO2 ABG pO2 ABG HCO3 ABG Total CO2 ABG O2 Saturation ABG Base Excess VBG pH 7.27 L VBG pCO2 53 H VBG pO2 40 VBG HCO3 24 VBG Total CO2 22 L VBG O2 Saturation 72 VBG Base Excess -3 L VBG Lactate FiO2 Sodium Potassium Chloride Carbon Dioxide Anion Gap BUN Creatinine Est GFR (CKD-EPI 2020) Glucose Calcium Magnesium Random Vancomycin MRSA (TEM-PCR) Time Spent with Patient Time Spent with Patient: >50 minutes Time was spent: preparing to see the patient(eg.review tests), obtaining and/or reviewing separately otained hiistory, ordering medications,tests, procedures, referring, communicating with other health housekeeper child care, indepentently interpreting results, counseling the patient and care coordination
[2024-08-07] MEDS: Pantoprazole 40 MG VIAL IVP (08:37)
[2024-08-07] MEDS: Gabapentin 300 MG CAP PO (08:38)
[2024-08-07] MEDS: Ezetimibe 10 MG TAB PO (08:38)
[2024-08-07] MEDS: buPROPion 75 MG TAB NG (08:49)
--- NOTE | 2024-08-07 08:53 | W.NUTCONSULT ---
Date of service: 08/07/24 Time of Service: 08:53 Nutritional Consult ASSESSMENT: Received nutrition consult regarding enteral feeding recommendation with patient currently inutubated. Pt energy needs assessed/estimated at 1881kcals (REEx1.2AF) and 84-101g protein (1-1.2g/kg) and 1881mL fluid. Recommend Jevity 1.5 enteral formula with fiber. Suggest formula goal of 1,254mL per 24 hours, run continuously for ease of toleration and administration. Recommend initiate Jevity 1.5 at 40mL per hour and increase 5mL per hour q6 hours until goal rate of 52.25mL achieved continuously. This total daily volume provides 1881kcals (100% of estimated needs) and 80g protein (79-95% of estimated needs) and 952mL fluid (50% of estimated needs) Remaining fluid needs to be achieved via IV fluids/flushes. When administering any medications via enteral feeding tube recommend 30-60mL flush before, after and between each medication to prevent mixing drugs/clogging. NUTRITIONAL DIAGNOSIS: Inability to meet energy and protein needs via oral intake secondary to patient sedated and intubated INTERVENTION: see above enteral feeding recommendations *Patient also having elevated glucose with fasting glucose 210 this morning. Pt currently ordered for bolus corrections only TID. Recommend initiation of bolus insulin at 10units per day with adjustments q 4 days based on fasting glucose lab results. MONITORING AND EVALUATION: will monitor weight, enteral feeding toleration, labs. Time Spent in Nutritional Counseling and Treatment: 10 min
[2024-08-07 09:24] LABS: BE (Venous) -4 mmol/L (-2-3); HCO3 (Venous) 24 mmol/L (23-28); O2 Sat (Venous) 74 %; TCO2 (Venous) 22 mmol/L (24-29); pCO2 (Venous) 53 mmHg (41-51); pH (Venous) 7.26 (7.31-7.41); pO2 (Venous) 42 mmHg
--- NOTE | 2024-08-07 09:38 | PDOC.CMPRO ---
Date of service: 08/07/24 Time of Service: 09:39 Care Management Progress Note Progress Note Text Progress Note Text: Bobby is being closely monitored and treated in the ICU for Acute respiratory failure with hypoxia and hypercapnia. He is currently intubated and recommendations are made for enteral nutrition. He is a full code, his HCA is his daughter yoko Montague. agent is son Scot. Bobby has 3 daughters and a son, whom are all on his HIPAA and are supportive. Palliative consult is planned for this afternoon. 1400: Bobby is transitioned to comfort care. See progress note. Discharge Potential Discharge Needs: PT Evaluation and PCP F/U Appt Anticipated Barriers to Discharge: Medical Status Patient/Family Education Needs: Review discharge instructions, discuss Ask Me Three Plan: Bobby is very acutely ill and transitioned to comfort care following a discussion with family. CM will follow and support patient and family during this difficult time. SDOH(Care Management) Screening Will the Patient Participate in the Screening?: Unable to obtain Social Determinants of Health Comments(SDOH Details): pt unable to participate in assessment at this time due to fatigue & CPAP use, as well as no family member or friends present at this time
--- NOTE | 2024-08-07 09:52 | W.PALLCONSUL ---
Date of service: 08/07/24 Time of Service: 15:00 History of Present Illness History of Present Illness Chief Complaint: sepsis Narrative: From H and P History of Present Illness Chief Complaint: shortness of breath, falls Narrative: 78-year-old gentleman with a past medical history coronary artery disease, hypertension, pulmonary fibrosis, COPD, recent hospitalization at [facility] for acute hypoxic respiratory failure secondary to COVID-19 for which he was discharged on 08/02/2024 ultimately being weaned to room air presents back to the emergency department with worsening shortness of breath chills and subjective fevers. Patient states that since being discharged he was feeling well until the evening of 08/03/2024 where he began to feel chills, and having fallen earlier this morning hitting his head though he did not report any loss of consciousness. He states that he feels weak but denies any lightheadedness, dizziness, chest pain, nausea vomiting or diarrhea. In the emergency department the patient was noted as being hypoxic requiring 3 L nasal cannula and was subsequently transitioned to CPAP for comfort which did improve his tachypnea. He was also noted as being tachycardic with heart rate greater than 100, his CBC showed that he had a white count of 24, BMP showed an CORINE with a creatinine of 1.5 (baseline 1.0), and a lactic acid of 2.1. Patient was started on vancomycin and cefepime and had chest CT that showed significant right lower lobe consolidation. Patient also had low normal blood pressures that improved after IV fluid rehydration in the emergency department. Which time emergency room PA paged hospitalist for admission for patient with severe sepsis secondary to hospital-acquired pneumonia secondary to recent COVID-19 infection. Interim Hx: Lawrence is presently intubated. The hospital team states that Lawrence has been extremely agitated and due to hypoxia required intubation versus comfort care. Family opted for intubation. Per Dr. Hartmann's note the family does not want resuscitation. ADDENDUM: When I went to see Lawrence, he had been transferred to [facility]. He was now on comfort measures and extubated. Family understood his condition was terminal and they wanted him comfortable. Assessment and Plan Assessment and plan (1) Goals of care, counseling/discussion: Status: Acute (2) Acute hyperactive delirium due to multiple etiologies: Status: Acute (3) Acute hypoxic respiratory failure: Status: Acute Assessment and plan: Lawrence has a complex case. He has multifactorial hypoxic respiratory failure and has been shown that he cannot maintain his sats. He was intubated and then extubated per family wishes. He is now on comfort measures Nursing staff was excellent at helping both the patient and the family to be comfortable. We did swab his mouth, apply Chapstick to his lips, increase his morphine, and due to agitation did give him Ativan. At family's request we discontinued the restraints which were in place due to his delirium over the last 24 hours. Lawrence did settle in. Family surrounded him. They said wonderful things about him letting go and that it was okay. I came back to the room approximately 1 hour later. He appeared to be a little more restless. More medication was given. Within 15 minutes he appeared to be in the terminal stages of dying. Nursing was wonderful about keeping him comfortable. Did discuss with hospital staff [facility] All Active Problems (Updated 08/06/24 @ 09:34 by Jignesh Oneill) Goals of care, counseling/discussion (Acute) Acute respiratory failure with hypoxia and hypercapnia (Acute) Acute hyperactive delirium due to multiple etiologies (Acute) Hospital acquired PNA (Acute) Severe sepsis (Acute) COVID-19 (Acute) CORINE (acute kidney injury) (Acute) Pneumonia (Acute) Respiratory failure (Acute) BPH w urinary obs/LUTS (Acute) CAD (coronary artery disease) (Chronic) Fall (Acute) COVID-19 (Acute) Acute hypoxic respiratory failure (Acute) COVID (Acute) Pulmonary embolism (Chronic) Chronic otitis externa of both ears (Acute) Acute serous otitis media, right ear (Acute) Acute otitis externa of right ear (Acute) Internal nasal lesion (Acute) Cigarette smoker (Acute) Pulmonary fibrosis (Acute) Acute otitis externa of left ear (Acute) Ear pain, right (Acute) Impetigo (Acute) [place] (dyspnea on exertion) (Acute) Cellulitis (Acute) Epistaxis (Acute) Nasal vestibulitis (Acute) Sensorineural hearing loss, bilateral (Acute) Impacted cerumen, bilateral (Acute) Weight loss (Acute) Elevated PSA, between 10 and less than 20 ng/ml (Acute) Otitis externa, left (Acute) Cardiomyopathy (Acute) 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) COPD with acute exacerbation (Acute) Tubular adenoma of colon (Acute) Emphysema lung (Acute) Aortic atherosclerosis (Acute) Cellulitis of ear (Acute) Anaphylaxis due to hymenoptera venom (Acute) Mallet deformity of left ring finger (Acute 11/30/20) with avulsion fracture Serrated adenoma of colon (Acute ~07/2020) Adenomatous polyps (Acute) Degenerative lumbar spinal stenosis (Acute) Bilateral hip joint arthritis (Acute) Arthritis of knee, right (Acute) Chronic knee pain (Acute) Fatigue (Acute) Bradycardia (Acute) RCA occlusion (Acute) [place] [facility] [place] (Chronic) same meds, good BP here today Depressive disorder (Chronic) Lipoma (Acute) Erectile dysfunction (Chronic) Tubular adenoma (Acute) 11/20 COLONOSCOPY: ONE TUBULOVILLOUS ADENOMA & TWO TUBULAR ADENOMAS. 05/22/13: DR. Mateusz COPELAND:TUBULAR ADENOMAS 11/13/16: Dr Jian Crump: tublular and tubulovillous adenomas Smoker (Chronic) Rheumatoid arthritis (Chronic 05/05/13[place] [facility] [place] Palpitations (Acute 11/04/12) multiple PVCs, bradycardia (2013) [place] [place] Abraham[place] echo normal LVEF and stress test neg ischemia) Male erectile disorder (Acute 08/29/13) Kidney stone (Acute 09/14/14) recurrent x3 on left [facility] [place] 10/12/16[place]; F/U Dr. Fair Hyperlipidemia (Chronic 05/05/13) Gastroesophageal reflux disease (Chronic) Diabetes mellitus (Chronic 05/05/13) check A1c and creat Chronic obstructive lung disease (Chronic) pulmonary fibrosis on chest xray ongoing tobacco use add back budesonide nebs to see if we can improve cough Medical History Right shoulder pain COPD exacerbation Pneumonia Eczema Hypoxemia Sepsis COPD (chronic obstructive pulmonary disease) BPH loc w urin obs/LUTS Myocardial infarction 2020 x2 stents CVA (cerebral vascular accident) (11/21/17) ASCVD (arteriosclerotic cardiovascular disease) (05/05/13) 2 NEW STENTS 04/22 H/O IMI; angioplasty and stent; [place] 12/, 02/11; CVA/TIA Surgical History Stented coronary artery [place] [facility] [place]p stent of old stent-KB History of incisional hernia repair History of knee surgery RESECTION ANGIOFIBROMA;RIGHT FOOT 02/04/18 KNEE REPAIR RIGHT Hernia Repair, Incisional Excision, Lipoma (05/19/16) posterior neck Colostomy (~2006) TEMP W/ REVISION Colonoscopy - MAC (11/13/16) Colonoscopy - MAC (05/16/13) Family History Mother Essential hypertension Heart disease Stroke Father Stroke Brother Heart disease Family History Diabetes Heart disease Cancer Brother No problems noted. Brother No problems noted. Sister No problems noted. Sister Alcohol abuse Social History Smoking/Tobacco Use Status: Current every day Tobacco Type: cigarettes Tobacco: How many years used: 60 Quit status: has quit before Second Hand Exposure: Yes Smoking risk assessment performed?: Yes Alcohol Intake: former Drug use: Never Substance use type: does not use Household members: family Housing: house Communication Needs: None Do you need help understanding health information?: Rarely Pets and animals: Yes Pets and animals: cat(s) Sexually active: No Current gender identity: male What is your relationship status?: How often do you talk on the phone with friends or family?: three or more times per week How often do you get together with friends or relatives?: twice per week How often do you attend adventist or judaism services?: decline to answer Do you belong to any clubs or organized social groups?: no Panel score (0-1 are the most socially isolated patients): 1 What type of physical activity do you participate in: walking Duration: < 15 minutes/day Frequency: 1-2 times per week Monika/Scientology: None Special monika needs: No Seatbelt use: sometimes Helmet use: No Drive intox or ride w/intox route driver salesperson: No Do you feel safe at home: Yes Do you feel safe in your relationship?: Yes Additional Social history: Lives with son Exam Narrative Exam Narrative: Lawrence was lying in bed. He had oxygen on. He was unconscious but struggling to breathe. He was tachypneic. He did not appear feverish but was definitely warm. He did not have distal extremity vasospasm Results Last Vital Signs Temp 99.9 F H 08/06/24 23:31 Pulse 56 L 08/07/24 00:31 Resp 30 H 08/07/24 07:55 BP 117/57 L 08/07/24 07:55 Pulse Ox 93 08/07/24 07:55 IMPRESSION: Increasing infiltrates superimposed upon COPD. Slight further progression. Also small bilateral pleural effusions. Endotracheal tube distal tip is above the wen at the infraclavicular level. However, the NG tube requires repositioning into the stomach. It is presently just above the GE junction. Labs 08/07/24 05:00 08/07/24 05:00 Labs: Laboratory Results - last 24 hr 08/06/24 08/06/24 08/06/24 10:36 13:24 15:19 WBC RBC Hgb Hct MCV MCH MCHC RDW Plt Count MPV Immature Gran % Neutrophils % Lymphocytes % Monocytes % Eosinophils % Basophils % Nucleated RBC % Absolute Neutrophils Absolute Lymphocytes Absolute Monocytes Absolute Eosinophils Absolute Basophils ABG Sample Site ABG pH ABG pCO2 ABG pO2 ABG HCO3 ABG Total CO2 ABG O2 Saturation ABG Base Excess VBG pH 7.29 L 7.21 L VBG pCO2 48 59 H VBG pO2 68 73 VBG HCO3 23 24 VBG Total CO2 21 L 22 L VBG O2 Saturation 93 92 VBG Base Excess -3 L -4 L VBG Lactate FiO2 Sodium Potassium Chloride Carbon Dioxide Anion Gap BUN Creatinine Est GFR (CKD-EPI 2020) Glucose Calcium Magnesium Random Vancomycin 11.2 MRSA (TEM-PCR) Positive A 08/06/24 08/06/24 08/06/24 16:27 17:53 21:14 WBC RBC Hgb Hct MCV MCH MCHC RDW Plt Count MPV Immature Gran % Neutrophils % Lymphocytes % Monocytes % Eosinophils % Basophils % Nucleated RBC % Absolute Neutrophils Absolute Lymphocytes Absolute Monocytes Absolute Eosinophils Absolute Basophils ABG Sample Site Left Radial ABG pH 7.18 L* ABG pCO2 66 H* ABG pO2 87 ABG HCO3 24 ABG Total CO2 23 ABG O2 Saturation 95 ABG Base Excess -4 L VBG pH 7.17 L* 7.21 L VBG pCO2 67 H* 61 H* VBG pO2 77 46 VBG HCO3 25 24 VBG Total CO2 23 L 23 L VBG O2 Saturation 93 78 VBG Base Excess -4 L -4 L VBG Lactate 1.0 FiO2 75 Sodium Potassium Chloride Carbon Dioxide Anion Gap BUN Creatinine Est GFR (CKD-EPI 2020) Glucose Calcium Magnesium Random Vancomycin MRSA (TEM-PCR) 08/06/24 08/07/24 08/07/24 23:15 01:15 03:15 WBC RBC Hgb Hct MCV MCH MCHC RDW Plt Count MPV Immature Gran % Neutrophils % Lymphocytes % Monocytes % Eosinophils % Basophils % Nucleated RBC % Absolute Neutrophils Absolute Lymphocytes Absolute Monocytes Absolute Eosinophils Absolute Basophils ABG Sample Site ABG pH ABG pCO2 ABG pO2 ABG HCO3 ABG Total CO2 ABG O2 Saturation ABG Base Excess VBG pH 7.22 L 7.26 L 7.26 L VBG pCO2 58 H 55 H 53 H VBG pO2 51 46 47 VBG HCO3 24 25 24 VBG Total CO2 22 L 23 L 22 L VBG O2 Saturation 83 80 81 VBG Base Excess -4 L -3 L -3 L VBG Lactate FiO2 Sodium Potassium Chloride Carbon Dioxide Anion Gap BUN Creatinine Est GFR (CKD-EPI 2020) Glucose Calcium Magnesium Random Vancomycin MRSA (TEM-PCR) 08/07/24 08/07/24 08/07/24 05:00 05:11 07:00 WBC 14.18 H RBC 4.13 L Hgb 13.2 L Hct 41.5 MCV 101 H MCH 32.0 MCHC 31.8 L RDW 14.5 H Plt Count 171 MPV 11.4 H Immature Gran % 1.3 Neutrophils % 84.9 Lymphocytes % 4.5 Monocytes % 7.4 Eosinophils % 1.3 Basophils % 0.6 Nucleated RBC % 0.0 Absolute Neutrophils 12.04 H Absolute Lymphocytes 0.64 L Absolute Monocytes 1.05 H Absolute Eosinophils 0.18 Absolute Basophils 0.09 ABG Sample Site ABG pH ABG pCO2 ABG pO2 ABG HCO3 ABG Total CO2 ABG O2 Saturation ABG Base Excess VBG pH 7.28 L 7.27 L VBG pCO2 51 53 H VBG pO2 50 40 VBG HCO3 24 24 VBG Total CO2 22 L 22 L VBG O2 Saturation 84 72 VBG Base Excess -3 L -3 L VBG Lactate FiO2 Sodium 147 H Potassium 4.8 Chloride 116 H Carbon Dioxide 25.6 Anion Gap 5.4 BUN 44 H Creatinine 1.2 Est GFR (CKD-EPI 2020) 62.67 Glucose 210 H Calcium 8.7 Magnesium 2.6 H Random Vancomycin MRSA (TEM-PCR) 08/07/24 09:15 WBC RBC Hgb Hct MCV MCH MCHC RDW Plt Count MPV Immature Gran % Neutrophils % Lymphocytes % Monocytes % Eosinophils % Basophils % Nucleated RBC % Absolute Neutrophils Absolute Lymphocytes Absolute Monocytes Absolute Eosinophils Absolute Basophils ABG Sample Site ABG pH ABG pCO2 ABG pO2 ABG HCO3 ABG Total CO2 ABG O2 Saturation ABG Base Excess VBG pH 7.26 L VBG pCO2 53 H VBG pO2 42 VBG HCO3 24 VBG Total CO2 22 L VBG O2 Saturation 74 VBG Base Excess -4 L VBG Lactate FiO2 Sodium Potassium Chloride Carbon Dioxide Anion Gap BUN Creatinine Est GFR (CKD-EPI 2020) Glucose Calcium Magnesium Random Vancomycin MRSA (TEM-PCR) Time Spent Time Spent with Patient Time Spent(min): 52
[2024-08-07] MEDS: Enoxaparin 80 MG/0.8 ML SYR SC (10:52)
[2024-08-07] MEDS: fentaNYL 100 MCG/2 ML VIAL 50 MCG IVP ×2 (12:31→13:19)
--- NOTE | 2024-08-07 13:54 | RESPIRATORY ---
08/07/2024 Pt extubated to [employer] status. No complications; in-line and oral sxn and cuff deflated prior to pulling tube.
--- NOTE | 2024-08-07 14:27 | NUR.NOTE ---
Nursing Note: Organ bank called @[phone]. Spoke w/ Razia Marc about patients status. Got a call back about a half hour later to confirm that the patient was not a candidate for organ donation. [facility] did ask [facility] to inform them upon patient's so they can contact the family about the potential for tissue donation.
--- NOTE | 2024-08-07 14:32 | W.PC.ACHO ---
Registration Status: Primary Language: Preferred Language: ED Information & Data Chief Complaint GenMedical 08/04/24 14:34 Triage Note PT arrives to the ED via EMS 08/04/24 10:55 c/o weakness. Pt found in chair this AM too weak to walk. Pt states he did fall last night; unsure if he hit his head. Low O2 per EMS and upon arrival; pt states he is not usually on O2 at home. COVID + Medical / Surgical History (Last Reviewed 07/30/24 @ 19:22 by Ty Moore MD) Right shoulder pain COPD exacerbation Pneumonia Eczema Hypoxemia Sepsis COPD (chronic obstructive pulmonary disease) BPH loc w urin obs/LUTS Myocardial infarction CVA (cerebral vascular accident) (11/21/17) ASCVD (arteriosclerotic cardiovascular disease) (05/05/13) (Last Reviewed 07/30/24 @ 19:22 by Ty Moore MD) Stented coronary artery History of incisional hernia repair History of knee surgery RESECTION KNEE REPAIR Hernia Repair, Incisional Excision, Lipoma (05/19/16) Colostomy (~2006) Colonoscopy - MAC (11/13/16) Colonoscopy - MAC (05/16/13) Most Recent Vital Signs Temperature 37.7 C H 08/06/24 23:31 Temperature Source Temporal Artery Scan 08/06/24 10:10 Pulse 56 L 08/07/24 00:31 Pulse 49 L 08/07/24 11:02 Respiratory Rate 33 H 08/07/24 11:02 Respiratory Effort Incrsd Work of Breathing 08/04/24 16:30 Respiratory Depth Deep 08/04/24 16:30 Respiratory Pattern Tachypnea 08/04/24 16:30 Blood Pressure 112/56 L 08/07/24 11:02 Blood Pressure Mean 96 08/07/24 00:31 Blood Pressure Position Sitting 08/04/24 11:22 Pulse Oximetry 94 08/07/24 11:02 Respiratory End-tidal CO2 25 08/07/24 11:02 Oxygen Delivery Method Mechanical Ventilator 08/07/24 00:22 Oxygen Flow Rate 0 08/07/24 00:22 Fraction of Inspired Oxygen (FIO2) 55 08/07/24 11:02 Pain Level 0 08/04/24 11:22 Comment Double checking temporal w/ tympanic. 08/06/24 08:06 Allergies venom-honey bee (bee venom (honey bee)) Allergy (Severe, Verified 08/04/24 11:23) ANAPHYLAXSIS Sulfa (Sulfonamide Antibiotics) Allergy (Unknown, Verified 08/04/24 11:23) unknown leflunomide (From Arava) Adverse Reaction (Intermediate, Verified 08/04/24 11:23) DIARRHEA metformin Adverse Reaction (Intermediate, Verified 08/04/24 11:23) diarrhea Precautions Isolation Airborne precaution 08/04/24 11:22 Active Medications Generic Name Dose Route Start Last Admin Trade Name Freq PRN Reason Stop Dose Admin Aspirin 81 mg 08/05/24 08:30 08/05/24 08:40 Aspirin 81 Mg Chew PO Not Given DAILY JOSE CARLOS Atorvastatin Calcium 80 mg 08/04/24 20:00 08/06/24 22:18 Atorvastatin 40 Mg Tab PO 80 mg QPM JOSE CARLOS Administration Benzonatate 100 mg 08/04/24 20:00 08/07/24 11:44 Benzonatate 100 Mg Cap PO Not Given TID JOSE CARLOS Chlorhexidine Gluconate 0 ml 08/07/24 08:15 08/07/24 10:52 Chlorhexidine Gluconate 0.12% Mouthwash 118 Ml Btl MM 1 applic DIRECTED JOSE CARLOS Administration Docusate Sodium 100 mg 08/05/24 08:30 08/07/24 11:44 Docusate Sodium 100 Mg Cap PO Not Given DAILY JOSE CARLOS Fentanyl 50 mcg 08/07/24 08:14 08/07/24 13:19 Fentanyl 100 Mcg/2 Ml Vial IVP 50 mcg Q1H PRN PRN Administration Fluticasone Propionate 0 gm 08/05/24 08:30 08/07/24 11:45 Fluticasone Nasal [place] 16 Gm Btl NS Not Given DAILY JOSE CARLOS Potassium Chloride/Sodium Chloride 1,000 mls @ 50 mls/hr 08/06/24 08:30 08/07/24 06:26 Kcl 10meq/D5-0.45% Nacl IV 50 mls/hr INFUSION JOSE CARLOS Administration Acetaminophen 1,000 mg in 100 mls @ 400 mls/hr 08/06/24 10:54 08/06/24 11:40 Ofirmev IVPB Infused Q8H PRN PRN Infusion Insulin Aspart 0 units 08/04/24 18:00 08/07/24 06:33 Insulin Aspart 300 Units/3 Ml Pen SC 4 units Q6H JOSE CARLOS Administration Protocol Methylprednisolone Sodium Succinate 80 mg 08/06/24 08:30 08/07/24 08:37 Methylprednisolone Succ 125 Mg Vial IVP 80 mg Q8H JOSE CARLOS Administration Pantoprazole Sodium 40 mg 08/06/24 08:30 08/07/24 08:37 Pantoprazole 40 Mg Vial IVP 40 mg DAILY JOSE CARLOS Administration Sodium Chloride 0 ml 08/04/24 11:10 08/07/24 12:31 Normal Saline Flush 10 Ml Syr IVP 40 ml PRN PRN Administration Sodium Chloride 0 ml 08/04/24 20:00 08/07/24 08:38 Normal Saline Flush 10 Ml Syr IVP 70 ml BID JOSE CARLOS Administration Tiotropium [place]/Olodaterol 2 puff 08/05/24 08:30 08/07/24 11:40 Tiotropium/Olodaterol 10 Puff Inhaler IH Not Given DAILY JOSE CARLOS IV IV Catheter Type [Right Mid-line Peripheral Line Midline] IV Catheter Type [Left Peripheral IV Antecubital] IV Catheter Type [Right Peripheral IV Forearm] IV Catheter Gauge [Left 18 Antecubital] IV Catheter Gauge [Right 20 Forearm] Diagnostics 08/07/24 08/07/24 08/07/24 Range/Units 09:15 07:00 05:11 WBC (4.4-10.8) 10^3/uL RBC (4.36-5.78) 10^6/uL Hgb (13.5-17.5) g/dL Hct (40.0-50.0) % MCV (80-95) fL MCH (27.0-33.0) pg MCHC (32.0-36.0) % RDW (11.8-14.1) % Plt Count (130-400) 10^3/uL MPV (8.0-11.0) fL Immature Gran % % Neutrophils % % Lymphocytes % % Monocytes % % Eosinophils % % Basophils % % Nucleated RBC % (0.0-0.3) % Absolute Neutrophils (1.2-6.7) 10^3/uL Absolute Lymphocytes (1.2-3.4) 10^3/uL Absolute Monocytes (0.1-0.8) 10^3/uL Absolute Eosinophils (0.0-0.7) 10^3/uL Absolute Basophils (0.0-0.2) 10^3/uL ABG Sample Site ABG pH (7.35-7.45) ABG pCO2 (35-45) mmHg ABG pO2 (80-105) mmHg ABG HCO3 (22-26) mmol/L ABG Total CO2 (23-27) mmol/L ABG O2 Saturation (95-98) % ABG Base Excess (-2-3) mmol/L VBG pH 7.26 L 7.27 L 7.28 L (7.31-7.41) VBG pCO2 53 H 53 H 51 (41-51) mmHg VBG pO2 42 40 50 mmHg VBG HCO3 24 24 24 (23-28) mmol/L VBG Total CO2 22 L 22 L 22 L (24-29) mmol/L VBG O2 Saturation 74 72 84 % VBG Base Excess -4 L -3 L -3 L (-2-3) mmol/L VBG Lactate (0.6-1.4) mmol/L FiO2 % Sodium (136-145) mmol/L Potassium (3.5-5.1) mmol/L Chloride (98-107) mmol/L Carbon Dioxide (21.0-32.0) mmol/L Anion Gap (3-11) mmol/L BUN (7-18) mg/dL Creatinine (0.70-1.30) mg/dL Est GFR (CKD-EPI 2020) (mL/min/1.73m2) Glucose (74-106) mg/dL Calcium (8.5-10.1) mg/dL Magnesium (1.8-2.4) mg/dL Random Vancomycin ug/mL 08/07/24 08/07/24 08/07/24 Range/Units 05:00 03:15 01:15 WBC 14.18 H (4.4-10.8) 10^3/uL RBC 4.13 L (4.36-5.78) 10^6/uL Hgb 13.2 L (13.5-17.5) g/dL Hct 41.5 (40.0-50.0) % MCV 101 H (80-95) fL MCH 32.0 (27.0-33.0) pg MCHC 31.8 L (32.0-36.0) % RDW 14.5 H (11.8-14.1) % Plt Count 171 (130-400) 10^3/uL MPV 11.4 H (8.0-11.0) fL Immature Gran % 1.3 % Neutrophils % 84.9 % Lymphocytes % 4.5 % Monocytes % 7.4 % Eosinophils % 1.3 % Basophils % 0.6 % Nucleated RBC % 0.0 (0.0-0.3) % Absolute Neutrophils 12.04 H (1.2-6.7) 10^3/uL Absolute Lymphocytes 0.64 L (1.2-3.4) 10^3/uL Absolute Monocytes 1.05 H (0.1-0.8) 10^3/uL Absolute Eosinophils 0.18 (0.0-0.7) 10^3/uL Absolute Basophils 0.09 (0.0-0.2) 10^3/uL ABG Sample Site ABG pH (7.35-7.45) ABG pCO2 (35-45) mmHg ABG pO2 (80-105) mmHg ABG HCO3 (22-26) mmol/L ABG Total CO2 (23-27) mmol/L ABG O2 Saturation (95-98) % ABG Base Excess (-2-3) mmol/L VBG pH 7.26 L 7.26 L (7.31-7.41) VBG pCO2 53 H 55 H (41-51) mmHg VBG pO2 47 46 mmHg VBG HCO3 24 25 (23-28) mmol/L VBG Total CO2 22 L 23 L (24-29) mmol/L VBG O2 Saturation 81 80 % VBG Base Excess -3 L -3 L (-2-3) mmol/L VBG Lactate (0.6-1.4) mmol/L FiO2 % Sodium 147 H (136-145) mmol/L Potassium 4.8 (3.5-5.1) mmol/L Chloride 116 H (98-107) mmol/L Carbon Dioxide 25.6 (21.0-32.0) mmol/L Anion Gap 5.4 (3-11) mmol/L BUN 44 H (7-18) mg/dL Creatinine 1.2 (0.70-1.30) mg/dL Est GFR (CKD-EPI 2020) 62.67 (mL/min/1.73m2) Glucose 210 H (74-106) mg/dL Calcium 8.7 (8.5-10.1) mg/dL Magnesium 2.6 H (1.8-2.4) mg/dL Random Vancomycin ug/mL 08/06/24 08/06/24 08/06/24 Range/Units 23:15 21:14 17:53 WBC (4.4-10.8) 10^3/uL RBC (4.36-5.78) 10^6/uL Hgb (13.5-17.5) g/dL Hct (40.0-50.0) % MCV (80-95) fL MCH (27.0-33.0) pg MCHC (32.0-36.0) % RDW (11.8-14.1) % Plt Count (130-400) 10^3/uL MPV (8.0-11.0) fL Immature Gran % % Neutrophils % % Lymphocytes % % Monocytes % % Eosinophils % % Basophils % % Nucleated RBC % (0.0-0.3) % Absolute Neutrophils (1.2-6.7) 10^3/uL Absolute Lymphocytes (1.2-3.4) 10^3/uL Absolute Monocytes (0.1-0.8) 10^3/uL Absolute Eosinophils (0.0-0.7) 10^3/uL Absolute Basophils (0.0-0.2) 10^3/uL ABG Sample Site Left Radial ABG pH 7.18 L* (7.35-7.45) ABG pCO2 66 H* (35-45) mmHg ABG pO2 87 (80-105) mmHg ABG HCO3 24 (22-26) mmol/L ABG Total CO2 23 (23-27) mmol/L ABG O2 Saturation 95 (95-98) % ABG Base Excess -4 L (-2-3) mmol/L VBG pH 7.22 L 7.21 L (7.31-7.41) VBG pCO2 58 H 61 H* (41-51) mmHg VBG pO2 51 46 mmHg VBG HCO3 24 24 (23-28) mmol/L VBG Total CO2 22 L 23 L (24-29) mmol/L VBG O2 Saturation 83 78 % VBG Base Excess -4 L -4 L (-2-3) mmol/L VBG Lactate (0.6-1.4) mmol/L FiO2 75 % Sodium (136-145) mmol/L Potassium (3.5-5.1) mmol/L Chloride (98-107) mmol/L Carbon Dioxide (21.0-32.0) mmol/L Anion Gap (3-11) mmol/L BUN (7-18) mg/dL Creatinine (0.70-1.30) mg/dL Est GFR (CKD-EPI 2020) (mL/min/1.73m2) Glucose (74-106) mg/dL Calcium (8.5-10.1) mg/dL Magnesium (1.8-2.4) mg/dL Random Vancomycin ug/mL 08/06/24 08/06/24 Range/Units 16:27 15:19 WBC (4.4-10.8) 10^3/uL RBC (4.36-5.78) 10^6/uL Hgb (13.5-17.5) g/dL Hct (40.0-50.0) % MCV (80-95) fL MCH (27.0-33.0) pg MCHC (32.0-36.0) % RDW (11.8-14.1) % Plt Count (130-400) 10^3/uL MPV (8.0-11.0) fL Immature Gran % % Neutrophils % % Lymphocytes % % Monocytes % % Eosinophils % % Basophils % % Nucleated RBC % (0.0-0.3) % Absolute Neutrophils (1.2-6.7) 10^3/uL Absolute Lymphocytes (1.2-3.4) 10^3/uL Absolute Monocytes (0.1-0.8) 10^3/uL Absolute Eosinophils (0.0-0.7) 10^3/uL Absolute Basophils (0.0-0.2) 10^3/uL ABG Sample Site ABG pH (7.35-7.45) ABG pCO2 (35-45) mmHg ABG pO2 (80-105) mmHg ABG HCO3 (22-26) mmol/L ABG Total CO2 (23-27) mmol/L ABG O2 Saturation (95-98) % ABG Base Excess (-2-3) mmol/L VBG pH 7.17 L* 7.21 L (7.31-7.41) VBG pCO2 67 H* 59 H (41-51) mmHg VBG pO2 77 73 mmHg VBG HCO3 25 24 (23-28) mmol/L VBG Total CO2 23 L 22 L (24-29) mmol/L VBG O2 Saturation 93 92 % VBG Base Excess -4 L -4 L (-2-3) mmol/L VBG Lactate 1.0 (0.6-1.4) mmol/L FiO2 % Sodium (136-145) mmol/L Potassium (3.5-5.1) mmol/L Chloride (98-107) mmol/L Carbon Dioxide (21.0-32.0) mmol/L Anion Gap (3-11) mmol/L BUN (7-18) mg/dL Creatinine (0.70-1.30) mg/dL Est GFR (CKD-EPI 2020) (mL/min/1.73m2) Glucose (74-106) mg/dL Calcium (8.5-10.1) mg/dL Magnesium (1.8-2.4) mg/dL Random Vancomycin 11.2 ug/mL 08/04/24 11:43 Blood Culture - Preliminary Blood NO GROWTH 72 HOURS 08/04/24 11:18 Blood Culture - Preliminary Blood NO GROWTH 72 HOURS [id number] Documentation Fingerstick Glucose Start: 08/04/24 11:17 Freq: Status: Complete Protocol: Activity Type Activity Date Activity User E-sign Co-sign Detail Recorded Client Recorded Date Recorded By Document 08/04/24 11:16 BKG DAEMON(3) [id number] 08/04/24 11:17 BKG DAEMON(4) Fingerstick Glucose Start: 08/04/24 17:28 Freq: Q6H Status: Active Protocol: Activity Type Activity Date Activity User E-sign Co-sign Detail Recorded Client Recorded Date Recorded By Document 08/07/24 12:00 N.STEP [id number] 08/07/24 14:06 N.STEP Intake and Output - 24 Hour Total 08/04/24 10:48 thru 08/07/24 13:48 Intake Total 66090.340 Output Total 5595 Balance 5277.340 Weight 84.8 kg [place]: [place] [address].340 Output: Urine 5595 Other: Urine Color Yellow Urine Appearance Clear Urine Odor Strong Comment Urometer placed Stool Size Small Stool Characteristics Soft # Voids 1 Urinary Catheter Urinary Catheter Date of 08/05/24 Insertion [Urethral (Garcia)] Time of insertion [Urethral ( 02:45 Garcia)] Falls Risk Assessment History of Falls Fall During Stay 08/05/24 00:00 Contributing Factors Confusion,Unstable, 08/05/24 00:00 Medications Ambulatory Aids Independent 08/05/24 00:00 Tubes/Lines With any additional score 08/05/24 00:00 Gait Evaluation W/no contributing factors 08/05/24 00:00 Cognition Cognitive impairment 08/05/24 00:00 Fall Total Score 79 08/05/24 00:00 Level of Risk Maximum Risk 08/05/24 00:00 Restraint Information Behavior Requiring Restraints/ Harm to Patient,Harm to Staff & Others Seclusion Note Pt intubated & sedated Criteria for Restraint Removal No longer threat to self,No longer threat to other,Behavior Change Date Restraints Removed 08/05/24 Time Restraints Removed 03:50 Was Restraint Order No Discontinued If no,why was the order not order at time of charting discontinued? Problems (Last Reviewed 07/30/24 @ 19:22 by Ty Moore MD) Goals of care, counseling/discussion (Acute) Acute respiratory failure with hypoxia and hypercapnia (Acute) Acute hyperactive delirium due to multiple etiologies (Acute) Hospital acquired PNA (Acute) Severe sepsis (Acute) COVID-19 (Acute) CORINE (acute kidney injury) (Acute) Pneumonia (Acute) Respiratory failure (Acute) CAD (coronary artery disease) (Chronic) Acute hypoxic respiratory failure (Acute) Pulmonary embolism (Chronic) Pulmonary fibrosis (Acute) Diabetes mellitus (Chronic 05/05/13) Notes 08/07/24 13:54 Respiratory by Leesa Glasgow 08/07/2024 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 No complications; in-line and oral sxn and cuff deflated prior to pulling tube. Initialized on 08/07/24 13:54 - END OF NOTE 08/06/24 13:39 Respiratory by Kimberly Porras Patient continues to maintain Sp02 between 88-92% on Airvo 62% and 50L. NIV machine was not in use and pulled from Patient room yesterday 08/05/24 due to the implementation of wrist restraints which is a contraindication for this therapy. Initialized on 08/06/24 13:39 - END OF NOTE 08/05/24 03:39 Nursing Notes by Yokasta Bean Nursing Note:This RN responded to a code nickerson. The patient was highly agitated despite the medications he was on. MD was paged to the floor and ordered for medications to assist in helping the patient calm down. RN followed verbal instructions for 5mg of Versed and 2.5mg of Droperidol. Versed was given IVP. Droperidol was given IM. Jose Patel RN verified medication dosages prior to him administering the medication. Benadryl was ordered and then was ordered to hold. No Benadryl was administered. scientific laboratory supervisor was present for this event. MD was present for this event. Initialized on 08/05/24 03:39 - END OF NOTE 08/05/24 03:30 (created 08/05/24 03:49) Nursing Notes by Jacob Miller Nursing Note: Pt's daughter francois Rachel, states this has happened to him before on prior ICU admission, at bedside speaking to Dr Maynard regarding patients status Initialized on 08/05/24 03:49 - END OF NOTE 08/05/24 03:05 (created 08/05/24 03:45) Nursing Notes by Jacob Miller Nursing Note: Staff emergency called, security and nursing camera supervisor notified, spoke to Dr Blair, pt extremely agitated and restless, combative, trying to hit staff and remove medical equipment, please see orders given, bilateral wrist restraints applied Initialized on 08/05/24 03:45 - END OF NOTE 08/04/24 20:30 (created 08/04/24 20:38) Nursing Notes by Jacob Miller Nursing Note: Dr Blair in to see pt at bedside, updated on pt's condition, pt's daughter and her at bedside, will monitor, INCOME TAX MANAGER at bedside. Initialized on 08/04/24 20:38 - END OF NOTE 08/04/24 16:44 Respiratory by Maureen Alfaro [facility] 3L at baseline Initialized on 08/04/24 16:44 - END OF NOTE v v v v v v v v v Sending and/or Receiving Nurses: Please use comment section below to note any information pertinent to the patient hand-off not included above. Information / Comments: Patient resting comfortably in bed with family at bedside Report received from: SILVINO Chan in ICU at 1310 on 08/07/2024.
[2024-08-07] MEDS: MORPHine 4 MG/ML SYR IV/SC ×3 (15:17→20:28)
[2024-08-07] MEDS: LORazepam 2 MG/ML VIAL 1 MG IV/SC ×2 (15:31→18:28)
[2024-08-07] MEDS: LORazepam 2 MG/ML VIAL 1 MG IVP (17:11)
[2024-08-07] MEDS: MORPHine 4 MG/ML SYR IVP (17:11)
--- NOTE | 2024-08-07 17:28 | NUR.NOTE ---
Nursing Note: Patient uncomfortable in room with family. Agonal breathing and restless. This RN waiting for orders to be able to give ativan and morphine. Rn attained one time orders for ativan and morphine. Patient still not comfortable and family in distress about situation. RN still waiting for morphine drip to clear through pharmacy. RN called pharmacy twice now about getting morphine as soon as possible. Pharmacy stated something about not having the morphine drip taht was ordered and are trying to get ahold of Provider to figure out the orders. This Rn and MICHELLE Choudhury went in to try to make patient comfortable. Patient repositioned and still in distress. RN still waiting on orders.
[2024-08-07] MEDS: Glycopyrrolate 0.2 MG/1 ML VIAL IVP (18:28)
[2024-08-07] MEDS: MIDAZOLAM 50 MG in Normal Saline 90 ML IV_INF (20:27)
[2024-08-07] MEDS: MORPHine 2 MG/ML SYR IVP ×2 (20:49→21:15)
--- NOTE | 2024-08-07 23:17 | EXPE_ITS ---
Date of service: 08/07/24 Time of Service: 22:10 Discharge Plan Disposition Patient Disposition: Discharge Details Reason For Visit: Severe sepsis, Hospital Acquired Pneumonia Admit Date/Time: 08/04/24 15:05 Admit Provider: Igor Mauro Attending Provider: Igor Mauro Primary Care Provider: Mike Bruns Hospital Course Hospital Course: This is a 78-year-old gentleman who has had multiple recent hospitalizations for for PE, COVID infection and then this hospitalization with complications of COVID infection with hypoxemia and right pneumonia on top of his severe COPD which was end-stage. He was treated aggressively for sepsis syndrome and acute hypoxic and hypercapnic respiratory failure with O2 supplementation, BiPAP and eventually intubated though he was a DNR/DNI the day prior to intubation. The family had him as a full code upon this admission and the decision-making process was difficult, eventually resulting in comfort measures only with DNR/DNI and patient extubated the day of his . The family was at his bedside at the time of his . He had not responded to intubation with sedation. His wishes were to be kept comfortable and withdrawal lifesaving measures if not responding to aggressive medical therapy which did occur. See H&P, acute event notes and progress notes. The event notes leg the day of admission and early the next morning marked the initial discussion of DNR/DNI status with the daughter present and then the daughter who was DPOA who was physically present on 08/05/2024 and agreed to DNR/DNI status prior to changing to wishes for intubation with DNR status. This was a difficult decision process was most likely secondary to rapid decline recently and despite aggressive medical therapy this hospitalization along with the patient's severe agitation and delusions requiring high level of sedation. Extensive counseling of patient's family with palliative care and multiple providers reviewed the patient's nonresponse to aggressive medical therapy and poor prognosis. Patient did peacefully and comfortably with children at his bedside. This was at 21:45 with patient pronounced at 21:46. The body was released to the morgue. Discharge Data Cause of : Respiratory failure with hypoxia and hypercapnia Discharge Date/Time-TO BE ENTERED AT DEPARTURE: 08/07/24 21:46 Discharge Sum: Prov Provider Consults: 08/06/24 14:51 PICC/Midline Consult [CONS] Routine Comment: Consultation Status:: Follow-up needed Clarification:: Manage/follow per spec. Reason for consult:: intubated patient with COVID, poor IV access Type of Line to be Placed: Midline 08/07/24 08:09 Palliative Care Consult [CONS] Routine Consultation Status:: Follow-up needed Clarification:: Manage/follow per spec. Reason for consult:: 78 yo M with COPD, ILD, recent PE and COVID-19, admitted with hospital acquired pneumonia after recent d/c for COVID, intubated due to progressive respiratory failure, not improving. 08/07/24 08:17 Nutrition Consult [CONS] Routine Consulting Provider: KERRIE Nutrition Consultation Status:: Follow-up needed Clarification:: Manage/follow per spec. Reason for consult:: intubated patient, tube feed/water recommendations Discharge Sum: Diag PCOD Cause of : Respiratory failure with hypoxia and hypercapnia Contributing Factors (1) Goals of care, counseling/discussion: (2) Acute hyperactive delirium due to multiple etiologies: (3) Acute hypoxic respiratory failure: Discharge Sum: Summary Date and Time Admission Date: 08/04/24 Date of : 08/07/24 Time of : 21:46 Summary Details: As per hospital course. Additional Data Confirmation of as documented by pronouncing clinician: no pulse, no respirations and no heart sounds Family: at bedside Attending/PCP notified?: No Attending Physician: Ty Zabala Was code activated?: No Autopsy requested?: No marine insurance claim examiner notified?: No Organ bank notified?: Yes Advance directives: Yes Hospice patient?: No
== END 2024-08-07 21:46 | disposition expired | DRG 871 ==
LOC: ER 14:37 → ICU 16:38 → MS 08-07 13:41
PROVIDERS: Family Medicine; Admitting Provider Family Medicine; Emergency Provider Physician Assistant; PCP Family Medicine; Visit Provider Family Medicine
DX: A41.9 Sepsis, unspecified organism (principal); J18.9 Pneumonia, unspecified organism; J96.01 Acute respiratory failure with hypoxia; J96.02 Acute respiratory failure with hypercapnia; U07.1 COVID-19; F05 Delirium due to known physiological condition; J44.1 Chronic obstructive pulmonary disease with (acute) exacerbation; J44.0 Chronic obstructive pulmonary disease with (acute) lower respiratory infection; N17.9 Acute kidney failure, unspecified; I42.9 Cardiomyopathy, unspecified; E87.21 Acute metabolic acidosis; I27.82 Chronic pulmonary embolism; E87.0 Hyperosmolality and hypernatremia; Y95 Nosocomial condition; J84.10 Pulmonary fibrosis, unspecified; I25.10 Atherosclerotic heart disease of native coronary artery without angina pectoris; E11.9 Type 2 diabetes mellitus without complications; Z79.85 Long-term (current) use of injectable non-insulin antidiabetic drugs; Z79.4 Long term (current) use of insulin; E78.5 Hyperlipidemia, unspecified; R63.4 Abnormal weight loss; K21.9 Gastro-esophageal reflux disease without esophagitis; W19.XXXA Unspecified fall, initial encounter; R53.1 Weakness; I65.21 Occlusion and stenosis of right carotid artery; N40.1 Benign prostatic hyperplasia with lower urinary tract symptoms; I10 Essential (primary) hypertension; H90.3 Sensorineural hearing loss, bilateral; M48.061 Spinal stenosis, lumbar region without neurogenic claudication; I70.0 Atherosclerosis of aorta; Z95.5 Presence of coronary angioplasty implant and graft; I25.2 Old myocardial infarction; F17.210 Nicotine dependence, cigarettes, uncomplicated; Z79.01 Long term (current) use of anticoagulants; F01.A0 Vascular dementia, mild, without behavioral disturbance, psychotic disturbance, mood disturbance, and anxiety; I69.319 Unspecified symptoms and signs involving cognitive functions following cerebral infarction; Z78.1 Physical restraint status; Z66 Do not resuscitate; Z51.5 Encounter for palliative care
CPT/HCPCS: 31500; 36410; 00123; 36415; 36416; 71045; 71250; 80048; 80053; 82805; 82962; 84145; 85027; 87040; 87641; 93005; 94640; 96361; 96365; 96366; 96367; 96375; 99291; J1650; 36600; 70450; 72125; 80202; 81003; 81015; 83605; 83735; 84484; 85025; 85610; 87086; 93010; 94002; 94003; 94660; 99223; 99233; J0131; J0360; J0692; J1200; J1596; J1630; J1790; J1815; J2003; J2060; J2250; J2270; J2470; J2704; J2919; J3010; J3360; J3372; J3475; J7620